=== PATIENT | female | born 1980 | race Caucasian/White ===

== ENCOUNTER → 2021-03-20 | Outpatient (CLI) | payer OTHER ==
--- NOTE | 2021-03-24 14:39 | MM ---
Reason for exam: screening (asymptomatic). Baseline mammogram. History: Family history of breast cancer in paternal grandmother. Took hormonal contraceptives beginning at age 20. Physical Findings: Nurse did not find any significant physical abnormalities on exam. MG Screening Mammo w CAD Bilateral CC and MLO view(s) were taken. The breast tissue is heterogeneously dense. This may lower the sensitivity of mammography. There is no discrete abnormality. Scar marker left breast. ASSESSMENT: Benign, BI-RAD 2 RECOMMENDATION: Routine screening mammogram of both breasts in 1 year.
== END | disposition home or self-care (01) ==
LOC: RADMAMWWP 09:47
PROVIDERS: ATTEND Family Medicine
DX: Z12.31 Encounter for screening mammogram for malignant neoplasm of breast (principal); Z80.3 Family history of malignant neoplasm of breast
CPT/HCPCS: 77067

== ENCOUNTER → 2022-09-03 | Outpatient (CLI) | payer BC ==
--- NOTE | 2022-09-03 15:23 | MM ---
Reason for Exam: Clinical finding. Last mammogram was performed 1 year(s) and 5 month(s) ago. Indicated Problems: Lump or thickening of the right side (size 20) for 1 Month(s). Patient History: Menarche at age 13. First Full-Term at age 15. Patient has history of breast feeding. Hormonal Contraceptives, from age 20 until age 25. Paternal grandmother had breast cancer, age 65. Last menstrual period: 08/18/2022 Risk Values: [place] 5 year model risk: 0.5%. NCI Lifetime model risk: 7.2%. Prior Study Comparison: 03/20/2021 Bilateral Screening Mammogram, [facility]. Tissue Density: The breast tissue is extremely dense which could obscure a lesion on mammography. Findings: Analyzed By CAD. There is an irregular triangular area in the 6:00 position subareolar right breast measuring an estimated 2.6 x 4.9 cm in size corresponding to the patient's pelvic abnormality and skin dimpling at this level. Note is made of skin thickening in the periareolar and lower inner quadrant. This is new from comparison. There is a 0.6 cm nodule located 8 cm on the nipple upper outer quadrant. There is a 0.7 cm nodule located 2 cm from the nipple in the upper portion of the right breast identified on mediolateral oblique view. These are changed from comparison. Left breast appears stable. Overall Assessment: Incomplete: need additional imaging evaluation, BI-RAD 0 Management: Diagnostic Breast Ultrasound of the right breast. A clinical breast exam by your physician is recommended on an annual basis and results should be correlated with mammographic findings. This exam should not preclude additional follow-up of suspicious palpable abnormalities. Results were given to the patient verbally at the time of exam. Electronically signed and approved by: Frankie Sanabria D.O. Radiologis
--- NOTE | 2022-09-03 16:16 | USB ---
Patient History: Menarche at age 13. First Full-Term at age 15. Patient has history of breast feeding. Hormonal Contraceptives, from age 20 until age 25. Paternal grandmother had breast cancer, age 65. Risk Values: [place] 5 year model risk: 0.5%. NCI Lifetime model risk: 7.2%. Technique: Method: Whole Breast Handheld. Prior Study Comparison: 03/20/2021 Bilateral Screening Mammogram, [facility]. Findings: The whole breast of the right breast, the axilla of the right breast and the retroareolar of the right breast were scanned. There is a lobular heterogenous area at the 6:00 position measuring 2.5 x 1.9 cm. Vascularity is present. Biopsy is recommended. At the 10:00 position 8 cm from nipple is a hypoechoic round area with smooth margins and posterior wall enhancement. Some vascularity may be within this structure. Axillary tail of scan. 12 cm from nipple there is an enlarged lymph node with thickened cortex and 0.6 cm. Overall Assessment: Highly suggestive of malignancy, BI-RAD 5 Management: Ultrasound Core Biopsy of the right breast. A clinical breast exam by your physician is recommended on an annual basis and results should be correlated with mammographic findings. This exam should not preclude additional follow-up of suspicious palpable abnormalities. Results were given to the patient verbally at the time of exam. Electronically signed and approved by: Frankie Sanabria D.O. Radiologis
== END | disposition home or self-care (01) ==
LOC: RADMAMWWP 14:20
PROVIDERS: ATTEND Family Medicine
DX: N63.13 Unspecified lump in the right breast, lower outer quadrant (principal); N64.4 Mastodynia; Z80.3 Family history of malignant neoplasm of breast
CPT/HCPCS: 77062; 77066

== ENCOUNTER → 2022-10-26 | Outpatient (CLI) | payer BC ==
--- NOTE | 2022-10-29 08:27 | BMR ---
EXAMINATION TYPE: MR breast BILAT wo/w con DATE OF EXAM: 10/26/2022 COMPARISON: 3-D diagnostic bilateral breast mammogram September 03, 2022 BI-RADS 0. Right breast ultras ound September 03, 2022 Iressa 5 HISTORY: Right breast cancer on ultrasound-guided biopsy September 18, 2022. 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 Metastatic lymphadenopathy 10:00 lesion and and right axillary lymph n ode on biopsy same day. Family history of breast cancer in grandmother. Last normal menstrual period October 15, 2022. TECHNIQUE: A series of fat and water weighted images in the long and short axis views of both breasts are obtained in conjunction with dynamic contrast MRI with subtraction technique. The patient was i njected with 12 mL intravenous Gadavist gadolinium contrast. Three-dimensional and additional postp rocessing imaging is created on independent workstation and reviewed during official interpretation o f this study. FINDINGS: Heterogeneously dense fibroglandular tissue is redemonstrated bilaterally. There is asymmet ben moderate right breast diffuse skin thickening and trabeculation. There is Mediport catheter in th e upper medial aspect of the left breast. There is no concerning left axillary adenopathy. There are several suspicious right axillary lymph nodes which correlates with patient's history. There is some asymmetric edema within the right pectoralis minor muscle. Dynamic postcontrast imaging shows moderat e left-sided background enhancement with tiny areas of nodular enhancement. There is more severe righ t-sided enhancement. Left breast shows chest wall wall to appear intact. No definitive focal greater than 5 mm enhancing m asses are seen. Right breast shows diffuse enhancement involving all 4 quadrants and abnormal skin thickening extendi ng to their close proximity to the pectoralis muscle which is slightly indented anteriorly axial imag e 102 series 801 for reference. No definitive chest wall or muscular invasion. IMPRESSION: Suboptimal study due to marked background enhancement. Diffuse neoplastic involvement thr oughout the entire right breast is suspected including MRI suspicion for probable dermal involvement due to enhancing asymmetric thickened right-sided dermal layer. Abnormal right axillary adenopathy. 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 No convincing MRI evidence for invasive malignancy in the left breast. BI-RADS 6 biopsy-proven cancer right breast. BI-RADS 2 benign findings left breast. Recommendation: Appropriate surgical and oncologic management of newly diagnosed right breast cancer.
== END | disposition home or self-care (01) ==
LOC: RADMRIMAIN 17:46
PROVIDERS: ATTEND Surgery
DX: C50.911 Malignant neoplasm of unspecified site of right female breast (principal); C77.3 Secondary and unspecified malignant neoplasm of axilla and upper limb lymph nodes
CPT/HCPCS: 77049; A9585

== ENCOUNTER 2023-02-18 08:42 | Inpatient (IN) | payer BC ==
[2023-02-18 08:52] LABS: Glucose,Whole Blood 146 mg/dL (70-110)
[2023-02-18] MEDS ORDERED: SODIUM CHLORIDE 0.9% 1,000 ML IV STA (08:58)
[2023-02-18] MEDS ORDERED: ACETAMINOPHEN TAB 325 MG TAB PO STA (09:01)
[2023-02-18] MEDS ORDERED: METOCLOPRAMIDE 5 MG/ML 2 ML VIAL IVP STA (09:01)
[2023-02-18] MEDS ORDERED: ACETAMINOPHEN TAB 500 MG TAB PO STA (09:02)
--- NOTE | 2023-02-18 09:09 | ED ---
General Adult HPI - General Chief complaint: Syncope Stated complaint: Near Syncope Time Seen by Provider: 02/18/23 08:44 Source: patient, EMS, RN notes reviewed Mode of arrival: ambulatory Limitations: no limitations - History of Present Illness Initial comments: Patient is a 42year old female presenting to the ER via EMS for evaluation of near syncope. Patient is currently being treated for breast cancer and her last infusion treatment was , 02/11/23. Patient states this morning while getting out of bed she was extremely dizzy and felt like she was going to pass out. She states it took several minutes for her to get her bearings and go to the bathroom where the same dizzy spell occurred again. She states she is extremely nauseous which is normal for her and is on many medications for it. Patient reports she was scheduled for IV fluids today. She denies headaches, visual changes, chest pain, shortness of breath, abdominal pain, or urinary symptoms. - Related Data Home Medications Medication Instructions Recorded Confirmed Ergocalciferol [Vitamin D2 (1250 1,250 mcg PO WE 10/15/22 02/18/23 Mcg = 63010 Iu)] Multivitamins, Thera [Multivitamin 1 tab PO DAILY 10/15/22 02/18/23 (formulary)] OLANZapine [ZyPREXA] 2.5 mg PO DIRECTED 02/18/23 02/18/23 Ondansetron Odt [Zofran Odt] 8 mg PO Q8HR PRN 02/18/23 02/18/23 Ondansetron [Zofran] 4 - 8 mg PO Q4H PRN 02/18/23 02/18/23 Prochlorperazine [Compazine] 10 mg PO Q6H PRN 02/18/23 02/18/23 Triamcinolone 0.1% Cream [Kenalog 1 applicatio TOPICAL TID PRN 02/18/23 02/18/23 0.1% Cream] Allergies Allergy/AdvReac Type Severity Reaction Status Date / Time No Known Allergies Allergy Verified 02/18/23 12:39 Review of Systems ROS Statement: Those systems with pertinent positive or pertinent negative responses have been documented in the HPI. ROS Other: All systems not noted in ROS Statement are negative. Past Medical History Past Medical History: Cancer Additional Past Medical History / Comment(s): new dx. breast cancer History of Any Multi-Drug Resistant Organisms: None Reported Past Surgical History: Breast Surgery, Tonsillectomy Additional Past Surgical History / Comment(s): recent breast bx. Past Anesthesia/Blood Transfusion Reactions: No Reported Reaction Past Psychological History: No Psychological Hx Reported Smoking Status: Never smoker - Past Family History Father Family Medical History: Cancer Additional Family Medical History / Comment(s): brain, paternal grandmother breast cancer General Exam Limitations: no limitations General appearance: alert, in no apparent distress Respiratory exam: Present: normal lung sounds bilaterally. Absent: respiratory distress, wheezes, rales, rhonchi, stridor Cardiovascular Exam: Present: regular rate, normal rhythm, normal heart sounds. Absent: systolic murmur, diastolic murmur, rubs, gallop, clicks GI/Abdominal exam: Present: soft, normal bowel sounds. Absent: distended, tenderness, guarding, rebound, rigid Neurological exam: Present: alert, oriented X3 Psychiatric exam: Present: normal affect, normal mood Skin exam: Present: warm, dry, intact, normal color. Absent: rash Course Vital Signs 02/18/23 02/18/23 02/18/23 08:52 10:11 11:45 Temperature 102.9 F H 99.8 F H 98.2 F Pulse Rate 111 H 107 H 98 Respiratory 19 18 17 Rate Blood Pressure 97/63 98/65 95/62 O2 Sat by Pulse 100 95 96 Oximetry 02/18/23 13:41 Temperature 98.4 F Pulse Rate Respiratory Rate Blood Pressure O2 Sat by Pulse Oximetry EKG Findings - EKG Comments: EKG Findings:: EKG performed at 20:49 sinus tachycardia rate of 108 MO 128 QRS 89 QT/QTC 337/400 - EKG Results: EKG: interpreted by ERMD Medical Decision Making - Medical Decision Making Was pt. sent in by a medical professional or institution (, PA, COMPUTER SYSTEMS AUDITOR, urgent care, hospital, or care home...) When possible be specific @ -No Did you speak to anyone other than the patient for history (EMS, parent, family, police, friend...)? What history was obtained from this source @ -No Did you review nursing and triage notes (agree or disagree)? Why? @ -I reviewed and agree with nursing and triage notes Were old charts reviewed (outside hosp., previous admission, EMS record, old EKG, old radiological studies, urgent care reports/EKG's, care home records)? Report findings @ -No old charts were reviewed Differential Diagnosis (chest pain, altered mental status, abdominal pain women, abdominal pain men, vaginal bleeding, weakness, fever, dyspnea, syncope, headache, dizziness, GI bleed, back pain, seizure, CVA, palpatations, mental health, musculoskeletal)? @ -Differential Weakness: Hypoglycemia, shock, sepsis, hyponatremia, anemia, infection, SC, ETOH, adverse medicine reaction, overdose, stroke, this is not meant to be an all-inclusive list.able EKG interpreted by me (3pts min.). @ -As above X-rays interpreted by me (1pt min.). @ -Chest x-ray shows no acute cardiopulmonary process CT interpreted by me (1pt min.). @ -None done U/S interpreted by me (1pt. min.). @ -None done What testing was considered but not performed or refused? (CT, X-rays, U/S, labs)? Why? @ -None What meds were considered but not given or refused? Why? @ -None Did you discuss the management of the patient with other professionals (lenny joshi i.e. , PA, COMPUTER SYSTEMS AUDITOR, lab, RT, psych nurse, social service liaison, linen keeper, teacher, tactical/mobile watch officer, case manager specialist)? Give summary @ -I discussed the case with oncology recommended patient to be admitted for neutropenic fever given patient's recent fusion even though patient has Covid 19 positive. Patient started him [place] from antibiotics. Discuss case with Dr. Back for [facility] for admission Was smoking cessation discussed for >3mins.? @ -No Was critical care preformed (if so, how long)? @ -No Were there social determinants of health that impacted care today? How? (Homelessness, low income, unemployed, alcoholism, drug addiction, transportation, low edu. Level, literacy, decrease access to med. care, detention, rehab)? @ -No Was there de-escalation of care discussed even if they declined (Discuss DNR or withdrawal of care, Hospice)? DNR status @ -No What co-morbidities impacted this encounter? (DM, HTN, Smoking, COPD, CAD, Cancer, CVA, ARF, Chemo, Hep., AIDS, mental health diagnosis, sleep apnea, morbid obesity)? @ -None Was patient admitted / discharged? Hospital course, mention meds given and route, prescriptions, significant lab abnormalities, going to OR and other pertinent info. @ -[Admitted patient admitted for neutropenic fever patient recommended antibiotics today but cultures, admission team recommended consult to oncology and pulmonary. Undiagnosed new problem with uncertain prognosis? @ -yes Drug Therapy requiring intensive monitoring for toxicity (Heparin, Nitro, Insul in, Cardizem)? @ -No Were any procedures done? @ -No Diagnosis/symptom? @ -Neutropenic fever, Covid Acute, or Chronic, or Acute on Chronic? @ -Acute Uncomplicated (without systemic symptoms) or Complicated (systemic symptoms)? @ -complicated Side effects of treatment? @ -No Exacerbation, Progression, or Severe Exacerbation? @ -No Poses a threat to life or bodily function? How? (Chest pain, USA, SC, pneumonia, PE, COPD, DKA, ARF, appy, cholecystitis, CVA, Diverticulitis, Homicidal, Suicidal, threat to staff... and all critical care pts) @ -Yes patient has neutropenic fever concerning for possible sepsis and an organ failure. - Lab Data Result diagrams: 02/18/23 09:11 02/18/23 09:11 Lab Results 02/18/23 02/18/23 02/18/23 Range/Units 08:51 09:11 09:11 WBC 0.6 L* (3.8-10.6) k/uL RBC 2.84 L (3.80-5.40) m/uL Hgb 9.0 L (11.4-16.0) gm/dL Hct 26.9 L (34.0-46.0) % MCV 94.7 (80.0-100.0) fL MCH 31.7 (25.0-35.0) pg MCHC 33.5 (31.0-37.0) g/dL RDW 15.2 (11.5-15.5) % Plt Count 94 L (150-450) k/uL MPV 9.3 Differential Comment Manual Slide Review Performed RBC Morphology Normal Sodium 136 L (137-145) mmol/L Potassium 3.8 (3.5-5.1) mmol/L Chloride 103 (98-107) mmol/L Carbon Dioxide 24 (22-30) mmol/L Anion Gap 9 mmol/L BUN 14 (7-17) mg/dL Creatinine 0.90 (0.52-1.04) mg/dL Est GFR (CKD-EPI)AfAm >90 (>60 ml/min/1.73 sqM) Est GFR (CKD-EPI)NonAf 80 (>60 ml/min/1.73 sqM) Glucose 110 H (74-99) mg/dL POC Glucose (mg/dL) 146 H (70-110) mg/dL POC Glu Engineering Secretary ID Tena Richard Plasma Lactic Acid Varun (0.7-2.0) mmol/L Calcium 8.3 L (8.4-10.2) mg/dL Magnesium 1.8 (1.6-2.3) mg/dL Total Bilirubin 1.6 H (0.2-1.3) mg/dL AST 34 (14-36) U/L ALT 29 (4-34) U/L Alkaline Phosphatase 76 (38-126) U/L Troponin I (0.000-0.034) ng/mL Total Protein 6.5 (6.3-8.2) g/dL Albumin 3.8 (3.5-5.0) g/dL Urine Color Urine Appearance (Clear) Urine pH (5.0-8.0) Ur Specific [place] (1.001-1.035) Urine Protein (Negative) Urine Glucose (UA) (Negative) Urine Ketones (Negative) Urine Blood (Negative) Urine Nitrite (Negative) Urine Bilirubin (Negative) Urine Urobilinogen (<2.0) mg/dL Ur Leukocyte Esterase (Negative) Urine RBC (0-5) /hpf Urine WBC (0-5) /hpf Ur Squamous Epith Cells (0-4) /hpf Amorphous Sediment (None) /hpf Urine Bacteria (None) /hpf Urine Mucus (None) /hpf Influenza Type A (PCR) (Not Detectd) Influenza Type B (PCR) (Not Detectd) RSV (PCR) (Not Detectd) SARS-CoV-2 (PCR) (Not Detectd) 02/18/23 02/18/23 02/18/23 Range/Units 09:11 09:11 09:11 WBC (3.8-10.6) k/uL RBC (3.80-5.40) m/uL Hgb (11.4-16.0) gm/dL Hct (34.0-46.0) % MCV (80.0-100.0) fL MCH (25.0-35.0) pg MCHC (31.0-37.0) g/dL RDW (11.5-15.5) % Plt Count (150-450) k/uL MPV Differential Comment Manual Slide Review RBC Morphology Sodium (137-145) mmol/L Potassium (3.5-5.1) mmol/L Chloride (98-107) mmol/L Carbon Dioxide (22-30) mmol/L Anion Gap mmol/L BUN (7-17) mg/dL Creatinine (0.52-1.04) mg/dL Est GFR (CKD-EPI)AfAm (>60 ml/min/1.73 sqM) Est GFR (CKD-EPI)NonAf (>60 ml/min/1.73 sqM) Glucose (74-99) mg/dL POC Glucose (mg/dL) (70-110) mg/dL POC Glu Engineering Secretary ID Plasma Lactic Acid Varun 1.4 (0.7-2.0) mmol/L Calcium (8.4-10.2) mg/dL Magnesium (1.6-2.3) mg/dL Total Bilirubin (0.2-1.3) mg/dL AST (14-36) U/L ALT (4-34) U/L Alkaline Phosphatase (38-126) U/L Troponin I 0.016 (0.000-0.034) ng/mL Total Protein (6.3-8.2) g/dL Albumin (3.5-5.0) g/dL Urine Color Dark Yellow Urine Appearance Cloudy H (Clear) Urine pH 6.0 (5.0-8.0) Ur Specific [place] 1.022 (1.001-1.035) Urine Protein Trace H (Negative) Urine Glucose (UA) Negative (Negative) Urine Ketones Negative (Negative) Urine Blood Negative (Negative) Urine Nitrite Negative (Negative) Urine Bilirubin Negative (Negative) Urine Urobilinogen 4.0 (<2.0) mg/dL Ur Leukocyte Esterase Negative (Negative) Urine RBC 1 (0-5) /hpf Urine WBC 5 (0-5) /hpf Ur Squamous Epith Cells 5 H (0-4) /hpf Amorphous Sediment Rare H (None) /hpf Urine Bacteria Rare H (None) /hpf Urine Mucus Many H (None) /hpf Influenza Type A (PCR) (Not Detectd) Influenza Type B (PCR) (Not Detectd) RSV (PCR) (Not Detectd) SARS-CoV-2 (PCR) (Not Detectd) 02/18/23 Range/Units 09:11 WBC (3.8-10.6) k/uL RBC (3.80-5.40) m/uL Hgb (11.4-16.0) gm/dL Hct (34.0-46.0) % MCV (80.0-100.0) fL MCH (25.0-35.0) pg MCHC (31.0-37.0) g/dL RDW (11.5-15.5) % Plt Count (150-450) k/uL MPV Differential Comment Manual Slide Review RBC Morphology Sodium (137-145) mmol/L Potassium (3.5-5.1) mmol/L Chloride (98-107) mmol/L Carbon Dioxide (22-30) mmol/L Anion Gap mmol/L BUN (7-17) mg/dL Creatinine (0.52-1.04) mg/dL Est GFR (CKD-EPI)AfAm (>60 ml/min/1.73 sqM) Est GFR (CKD-EPI)NonAf (>60 ml/min/1.73 sqM) Glucose (74-99) mg/dL POC Glucose (mg/dL) (70-110) mg/dL POC Glu Engineering Secretary ID Plasma Lactic Acid Varun (0.7-2.0) mmol/L Calcium (8.4-10.2) mg/dL Magnesium (1.6-2.3) mg/dL Total Bilirubin (0.2-1.3) mg/dL AST (14-36) U/L ALT (4-34) U/L Alkaline Phosphatase (38-126) U/L Troponin I (0.000-0.034) ng/mL Total Protein (6.3-8.2) g/dL Albumin (3.5-5.0) g/dL Urine Color Urine Appearance (Clear) Urine pH (5.0-8.0) Ur Specific [place] (1.001-1.035) Urine Protein (Negative) Urine Glucose (UA) (Negative) Urine Ketones (Negative) Urine Blood (Negative) Urine Nitrite (Negative) Urine Bilirubin (Negative) Urine Urobilinogen (<2.0) mg/dL Ur Leukocyte Esterase (Negative) Urine RBC (0-5) /hpf Urine WBC (0-5) /hpf Ur Squamous Epith Cells (0-4) /hpf Amorphous Sediment (None) /hpf Urine Bacteria (None) /hpf Urine Mucus (None) /hpf Influenza Type A (PCR) Not Detected (Not Detectd) Influenza Type B (PCR) Not Detected (Not Detectd) RSV (PCR) Not Detected (Not Detectd) SARS-CoV-2 (PCR) Detected A (Not Detectd) Disposition Clinical Impression: Neutropenic fever, COVID-19 Disposition: ADMITTED IP TO THIS [facility] Condition: Poor Referrals: Yonas Dalal III, MD [Primary Care Provider] - 1-2 days Time of Disposition: 14:29
--- NOTE | 2023-02-18 09:42 | XR ---
EXAMINATION TYPE: XR chest 2V DATE OF EXAM: 02/18/2023 9:37 AM COMPARISON: Chest radiographs from 10/20/2022 TECHNIQUE: XR chest 2V Frontal and lateral views of the chest. CLINICAL INDICATION:Female, 42 years old with history of syncope; FINDINGS: Lungs/Pleura: There is no evidence of pleural effusion, focal consolidation, or pneumothorax. Pulmonary vascularity: Unremarkable. Heart/mediastinum: Cardiomediastinal silhouette is unremarkable. Musculoskeletal: No acute osseous pathology. Other findings: None Lines/Tubes: [id number] projecting over the left hemithorax with distal tip at the low SVC. IMPRESSION: No acute cardiopulmonary disease/process.
[2023-02-18 09:45] LABS: HCT 26.9 % (34.0-46.0); MCH 31.7 pg (25.0-35.0); MCHC 33.5 g/dL (31.0-37.0); MCV 94.7 fL (80.0-100.0); Mean Platelet Volume 9.3; RBC 2.84 m/uL (3.80-5.40); RDW 15.2 % (11.5-15.5)
[2023-02-18 09:49] LABS: WBC 0.6 k/uL (3.8-10.6)
[2023-02-18 09:55] LABS: ALT 29 U/L (4-34); AST 34 U/L (14-36); African American GFR (CKD) >90 (>60 ml/min/1.73 sqM); Albumin 3.8 g/dL (3.5-5.0); Alkaline Phosphatase 76 U/L (38-126); Anion Gap 9 mmol/L; Blood Urea Nitrogen 14 mg/dL (7-17); Calcium 8.3 mg/dL (8.4-10.2); Carbon Dioxide 24 mmol/L (22-30); Chloride 103 mmol/L (98-107); Glucose 110 mg/dL (74-99); Magnesium 1.8 mg/dL (1.6-2.3); Non-African American GFR(CKD) 80 (>60 ml/min/1.73 sqM); Potassium 3.8 mmol/L (3.5-5.1); Sodium 136 mmol/L (137-145); Total Bilirubin 1.6 mg/dL (0.2-1.3); Total Protein 6.5 g/dL (6.3-8.2)
[2023-02-18 10:11] LABS: Platelet Count 94 k/uL (150-450)
[2023-02-18 10:12] LABS: RBC Morphology Normal
[2023-02-18 11:17] LABS: Amorphous Sediment,Urine Rare /hpf; Appearance,Urine Cloudy (Clear); Bacteria,Urine Rare /hpf; Bilirubin,Urine Negative (Negative); Blood,Urine Negative (Negative); Color,Urine Dark Yellow; Glucose,Urine (UA) Negative (Negative); Ketones,Urine Negative (Negative); Leukocyte Esterase,Urine Negative (Negative); Mucus,Urine Many /hpf; Nitrite,Urine Negative (Negative); Protein,Urine Trace (Negative); RBC,Urine 1 /hpf (0-5); Specific Gravity,Urine 1.022 (1.001-1.035); Squamous Epithelial Cell,Urine 5 /hpf (0-4); WBC,Urine 5 /hpf (0-5)
[2023-02-18] MEDS ORDERED: PROCHLORPERAZINE INJ 10 MG/2 ML VIAL IVP STA (13:46)
[2023-02-18] MEDS ORDERED: VANCOMYCIN IV PER PHARMACY 1 EACH MISC MISCELLANE PRN (14:26)
[2023-02-18] MEDS ORDERED: VANCOMYCIN 2,000 MG in SODIUM CHLORIDE 0.9% 500 ML 500 ML IVPB STA (14:30)
[2023-02-18] MEDS ORDERED: IBUPROFEN 400 MG TAB PO PRN (15:55)
[2023-02-18] MEDS ORDERED: ACETAMINOPHEN TAB 325 MG TAB PO PRN (15:55)
[2023-02-18] MEDS ORDERED: NALOXONE 0.4 MG/ML 1 ML VIAL IV PRN (15:55)
[2023-02-18] MEDS: SODIUM CHLORIDE 0.9% 1,000 ML IV SCH (16:21)
[2023-02-18] MEDS: CEFEPIME 2 GM in SODIUM CHLORIDE 0.9% 100 ML IVPB SCH ×2 (16:22→23:51)
[2023-02-18] MEDS ORDERED: PROCHLORPERAZINE 10 MG TAB PO PRN (20:28)
[2023-02-18] MEDS ORDERED: ONDANSETRON ODT 8 MG TAB.RAPDIS PO PRN (20:28)
[2023-02-18] MEDS ORDERED: OLANZapine 2.5 MG TAB PO SCH (20:30)
[2023-02-18] MEDS: VANCOMYCIN 2,000 MG in SODIUM CHLORIDE 0.9% 500 ML 500 ML IVPB SCH (23:51)
[2023-02-19] MEDS: SODIUM CHLORIDE 0.9% 1,000 ML IV SCH ×2 (06:38→16:35)
[2023-02-19] MEDS: CEFEPIME 2 GM in SODIUM CHLORIDE 0.9% 100 ML IVPB SCH ×2 (08:16→17:57)
[2023-02-19] MEDS: MULTIVITAMINS, THERA 1 EACH TAB PO SCH (08:49)
[2023-02-19] MEDS ORDERED: ONDANSETRON 4 MG/2 ML VIAL IVP PRN (08:56)
[2023-02-19 10:44] LABS: HCT 24.2 % (34.0-46.0); MCHC 33.1 g/dL (31.0-37.0); MCV 96.8 fL (80.0-100.0); Mean Platelet Volume 9.7; RDW 15.1 % (11.5-15.5)
[2023-02-19 10:57] LABS: Platelet Count 62 k/uL (150-450); WBC 0.4 k/uL (3.8-10.6)
[2023-02-19] MEDS: VANCOMYCIN 2,000 MG in SODIUM CHLORIDE 0.9% 500 ML 500 ML IVPB SCH (13:14)
[2023-02-19 13:18] LABS: RBC Morphology Normal
[2023-02-19] MEDS ORDERED: LOPERAMIDE 2 MG CAP PO STA (14:26)
[2023-02-19] MEDS ORDERED: LOPERAMIDE 2 MG CAP PO PRN (14:26)
--- NOTE | 2023-02-19 14:54 | P.CNPUL ---
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 Lifelong nonsmoker. No other significant medical history. She presented here to the emergency room yesterday after developing nausea, vomiting, diarrhea with dizziness and lightheadedness and near syncopal episodes. White count 0.4. Hemoglobin 8.0. Platelets 62,000. Sodium 136. Potassium 3.8. Bicarb 24. BUN 14. Creatinine 0.91. Glucose 110. AST 34. At all. 29. Troponin negative 1. C. difficile screen negative. Influenza screen negative. RSV screen negative. She was found to be positive for COVID-19. Chest x-ray reveals no acute cardiopulmonary process. Mediport noted in the left hemithorax. Receiving normal saline at 130 ML's per hour. Compazine and Zofran for nausea. Antibiotics of vancomycin and cefepime. Review of Systems REVIEW OF SYSTEMS: CONSTITUTIONAL: Positive for dizziness lightheadedness, weight loss. EYES: Denies change in vision. EARS, NOSE, MOUTH, THROAT: Denies headaches, denies sore throat. CARDIOVASCULAR: Denies chest pain, palpitations or syncopal episodes. RESPIRATORY: Denies shortness of breath, cough, congestion or hemoptysis. GASTROINTESTINAL: Positive for nausea, vomiting, diarrhea. GENITOURINARY: Denies hematuria, denies infections. MUSKULOSKELETAL: Denies pain, denies swelling. INTEGUMENTARY: Denies rash, denies eczema. NEUROLOGICAL: Denies recent memory loss, no recent seizure activity. PSYCHIATRIC: Denies anxiety, denies depression. HEMATOLOGIC/LYMPHATIC: Positive for anemia, denies enlarged lymph nodes. Past Medical History Past Medical History: Cancer Additional Past Medical History / Comment(s): new dx. breast cancer History of Any Multi-Drug Resistant Organisms: None Reported Past Surgical History: Breast Surgery, Tonsillectomy Additional Past Surgical History / Comment(s): recent breast bx. Past Anesthesia/Blood Transfusion Reactions: No Reported Reaction Past Psychological History: No Psychological Hx Reported Smoking Status: Never smoker Past Alcohol Use History: Occasional Past Drug Use History: None Reported - Past Family History Father Family Medical History: Cancer Additional Family Medical History / Comment(s): brain, paternal grandmother breast cancer Medications and Allergies Home Medications Medication Instructions Recorded Confirmed Type Ergocalciferol [Vitamin D2 (1250 1,250 mcg PO WE 10/15/22 02/18/23 History Mcg = 68417 Iu)] Multivitamins, Thera [Multivitamin 1 tab PO DAILY 10/15/22 02/18/23 History (formulary)] OLANZapine [ZyPREXA] 2.5 mg PO DIRECTED 02/18/23 02/18/23 History Ondansetron Odt [Zofran Odt] 8 mg PO Q8HR PRN 02/18/23 02/18/23 History Ondansetron [Zofran] 4 - 8 mg PO Q4H PRN 02/18/23 02/18/23 History Prochlorperazine [Compazine] 10 mg PO Q6H PRN 02/18/23 02/18/23 History Triamcinolone 0.1% Cream [Kenalog 1 applicatio TOPICAL TID PRN 02/18/23 02/18/23 History 0.1% Cream] Allergies Allergy/AdvReac Type Severity Reaction Status Date / Time No Known Allergies Allergy Verified 02/18/23 12:39 Physical Exam Vitals: Vital Signs Temp Pulse Pulse Resp BP BP Pulse Ox 02/19/23 08:02 98.9 F 110 H 18 96/62 99 02/19/23 02:00 100.0 F H 86 16 95/61 99 02/18/23 19:57 102.0 F H 101 H 18 92/61 99 02/18/23 17:51 98.5 F 100 18 109/70 98 02/18/23 16:48 93 18 Intake and Output 02/18/23 02/19/23 02/19/23 22:59 06:59 14:59 Other: Voiding Method Toilet # Voids 1 2 Weight 122.47 kg GENERAL EXAM: Alert, very pleasant 42-year-old female, on room air, fairly comfortable in no apparent distress. HEAD: Normocephalic. EYES: Normal reaction of pupils, equal size. NOSE: Clear with pink turbinates. THROAT: No erythema or exudates. NECK: No masses, no JVD. CHEST: No chest wall deformity. Left Mediport noted in place LUNGS: Equal air entry with no crackles, wheeze, rhonchi or dullness. CVS: S1 and S2 normal with no audible murmur, regular rhythm. ABDOMEN: No hepatosplenomegaly, normal bowel sounds, no guarding or rigidity. SPINE: No scoliosis or deformity SKIN: No rashes CENTRAL NERVOUS SYSTEM: No focal deficits, tone is normal in all 4 extremities. EXTREMITIES: There is no peripheral edema. No clubbing, no cyanosis. Peripheral pulses are intact. Results - Laboratory Findings CBC and BMP: 02/19/23 10:27 02/18/23 09:11 Abnormal lab findings: Abnormal Labs 02/18/23 02/18/23 02/18/23 08:51 09:11 09:11 WBC 0.6 L* RBC 2.84 L Hgb 9.0 L Hct 26.9 L Plt Count 94 L Sodium 136 L Glucose 110 H POC Glucose (mg/dL) 146 H Calcium 8.3 L Total Bilirubin 1.6 H Urine Appearance Urine Protein Ur Squamous Epith Cells Amorphous Sediment Urine Bacteria Urine Mucus SARS-CoV-2 (PCR) 02/18/23 02/18/23 02/19/23 09:11 09:11 10:27 WBC 0.4 L* RBC 2.50 L Hgb 8.0 L Hct 24.2 L Plt Count 62 L Sodium Glucose POC Glucose (mg/dL) Calcium Total Bilirubin Urine Appearance Cloudy H Urine Protein Trace H Ur Squamous Epith Cells 5 H Amorphous Sediment Rare H Urine Bacteria Rare H Urine Mucus Many H SARS-CoV-2 (PCR) Detected A - Diagnostic Findings Chest x-ray: image reviewed Assessment and Plan Assessment: Near syncope secondary to nausea, vomiting, diarrhea. C. diff is currently single screen negative. COVID-19 screen positive COVID-19 infection without COVID-19 pneumonia History of invasive poorly differentiated ductal carcinoma of the right breast. Most recent chemotherapy on 02/11/2023 Pancytopenia secondary to above Nonsmoker Plan: The patient was seen and evaluated Chest x-ray, labs and medications reviewed No evidence of COVID-19 pneumonia Stable and on room air Continue fluid resuscitation Obtain a pro-calcitonin Antibiotics in the form of vancomycin and cefepime Continue Compazine and Zofran as needed Continue Imodium as needed We will continue to follow and make further recommendations based on her clinical status I have personally seen and examined the patient, performed the documentation and the assessment and plan as written. Number of minutes spent on the visit: 20.
[2023-02-19] MEDS: PROCHLORPERAZINE INJ 10 MG/2 ML VIAL IVP PRN (15:49)
[2023-02-19] MEDS ORDERED: ACETAMINOPHEN IV (For NPO) 1,000 MG in EMPTY BAG 1 BAG IVPB PRN (16:32)
--- NOTE | 2023-02-19 16:59 | P.CONS ---
History of Present Illness - Reason for Consult Consult date: 02/19/23 hx breast cancer Requesting physician: Sebastián Galdamez - Chief Complaint weakness - History of Present Illness Patient is a 42-year-old woman with a significant history of triple negative invasive ductal carcinoma of the right breast. PET/CT noted FDG avidity in the right breast along with the right axilla and right retropectoral region with no evidence of distant metastatic disease. She completed 4 cycles of neoadjuvant carboplatin/paclitaxel/pembrolizumab, and has completed cycle 2 of AC plus Keytruda with neulasta on 02/11/2023. With plans to f/u with surgery upon completion of cycle 4. Patient presented to the ER for progressing weakness and near syncope. Patient states since her last cycle on 02/11 symptoms have been progressing and became so weak she was barely able to walk from room to room or brush her teeth without having to lay down at which time she presented to the ER for further evaluation. Patient reports persisting diarrhea and nausea and decreased appetite. She denies syncope and chest pain. Denies cough and rhinorrhea. Chest x-ray was n egative for acute cardiopulmonary processes. C. difficile negative. Blood cultures pending. Patient has been started on cefepime and vancomycin. Patient did test positive for COVID infection. T max 102.9. Leukopenia present, WBC 400. Hemoglobin 8.0, platelets 62,000. Review of Systems 10 point ROS is negative except as stated in the HPI Past Medical History Past Medical History: Cancer Additional Past Medical History / Comment(s): new dx. breast cancer History of Any Multi-Drug Resistant Organisms: None Reported Past Surgical History: Breast Surgery, Tonsillectomy Additional Past Surgical History / Comment(s): recent breast bx. Past Anesthesia/Blood Transfusion Reactions: No Reported Reaction Past Psychological History: No Psychological Hx Reported Smoking Status: Never smoker Past Alcohol Use History: Occasional Past Drug Use History: None Reported - Past Family History Father Family Medical History: Cancer Additional Family Medical History / Comment(s): brain, paternal grandmother breast cancer Medications and Allergies Home Medications Medication Instructions Recorded Confirmed Type Ergocalciferol [Vitamin D2 (1250 1,250 mcg PO WE 10/15/22 02/18/23 History Mcg = 92292 Iu)] Multivitamins, Thera [Multivitamin 1 tab PO DAILY 10/15/22 02/18/23 History (formulary)] OLANZapine [ZyPREXA] 2.5 mg PO DIRECTED 02/18/23 02/18/23 History Ondansetron Odt [Zofran Odt] 8 mg PO Q8HR PRN 02/18/23 02/18/23 History Ondansetron [Zofran] 4 - 8 mg PO Q4H PRN 02/18/23 02/18/23 History Prochlorperazine [Compazine] 10 mg PO Q6H PRN 02/18/23 02/18/23 History Triamcinolone 0.1% Cream [Kenalog 1 applicatio TOPICAL TID PRN 02/18/23 02/18/23 History 0.1% Cream] Allergies Allergy/AdvReac Type Severity Reaction Status Date / Time No Known Allergies Allergy Verified 02/18/23 12:39 Physical Exam Vitals: Vital Signs Temp Pulse Pulse Resp BP BP Pulse Ox 02/19/23 08:02 98.9 F 110 H 18 96/62 99 02/19/23 02:00 100.0 F H 86 16 95/61 99 02/18/23 19:57 102.0 F H 101 H 18 92/61 99 02/18/23 17:51 98.5 F 100 18 109/70 98 02/18/23 16:48 93 18 02/18/23 13:41 98.4 F 02/18/23 11:45 98.2 F 98 17 95/62 96 02/18/23 10:11 99.8 F H 107 H 18 98/65 95 Intake and Output 02/18/23 02/19/23 02/19/23 22:59 06:59 14:59 Other: Voiding Method Toilet # Voids 1 2 Weight 122.47 kg - Constitutional General appearance: average body habitus, no acute distress - EENT Eyes: anicteric sclerae, EOMI ENT: hearing grossly normal - Respiratory Respiratory: bilateral: CTA - Cardiovascular Rhythm: regular Heart sounds: normal: S1, S2 Abnormal Heart Sounds: no systolic murmur, no diastolic murmur, no rub, no S3 Gallop, no S4 Gallop, no click, no other - Gastrointestinal General gastrointestinal: soft, no tenderness - Integumentary Integumentary: no cyanotic, no rash - Neurologic Neurologic: CNII-XII intact - Musculoskeletal Musculoskeletal: generalized weakness - Psychiatric Psychiatric: A&O x's 3, appropriate affect, intact judgment & insight Results CBC & Chem 7: 02/19/23 10:27 02/18/23 09:11 Labs: Abnormal Lab Results - Last 24 Hours (Table) 02/18/23 02/18/23 02/18/23 Range/Units 09:11 09:11 09:11 WBC 0.6 L* (3.8-10.6) k/uL RBC 2.84 L (3.80-5.40) m/uL Hgb 9.0 L (11.4-16.0) gm/dL Hct 26.9 L (34.0-46.0) % Plt Count 94 L (150-450) k/uL Sodium 136 L (137-145) mmol/L Glucose 110 H (74-99) mg/dL Calcium 8.3 L (8.4-10.2) mg/dL Total Bilirubin 1.6 H (0.2-1.3) mg/dL Urine Appearance Cloudy H (Clear) Urine Protein Trace H (Negative) Ur Squamous Epith Cells 5 H (0-4) /hpf Amorphous Sediment Rare H (None) /hpf Urine Bacteria Rare H (None) /hpf Urine Mucus Many H (None) /hpf SARS-CoV-2 (PCR) (Not Detectd) 02/18/23 Range/Units 09:11 WBC (3.8-10.6) k/uL RBC (3.80-5.40) m/uL Hgb (11.4-16.0) gm/dL Hct (34.0-46.0) % Plt Count (150-450) k/uL Sodium (137-145) mmol/L Glucose (74-99) mg/dL Calcium (8.4-10.2) mg/dL Total Bilirubin (0.2-1.3) mg/dL Urine Appearance (Clear) Urine Protein (Negative) Ur Squamous Epith Cells (0-4) /hpf Amorphous Sediment (None) /hpf Urine Bacteria (None) /hpf Urine Mucus (None) /hpf SARS-CoV-2 (PCR) Detected A (Not Detectd) Chest x-ray: report reviewed Assessment and Plan (1) Neutropenic fever Current Visit: Yes Status: Acute Priority: High Code(s): D70.9 - NEUTROPENIA, UNSPECIFIED; R50.81 - FEVER PRESENTING WITH CONDITIONS CLASSIFIED ELSEWHERE SNOMED Code(s): 717022775 (2) Breast cancer, right breast Current Visit: Yes Status: Acute Priority: High Code(s): C50.911 - MALIGNANT NEOPLASM OF UNSP SITE OF RIGHT FEMALE BREAST SNOMED Code(s): 465502604 (3) Antineoplastic chemotherapy induced pancytopenia Current Visit: Yes Status: Acute Priority: High Code(s): D61.810 - ANTINEOPLASTIC CHEMOTHERAPY INDUCED PANCYTOPENIA; T45.1X5A - ADVERSE EFFECT OF ANTINEOPLASTIC AND IMMUNOSUP DRUGS, INIT SNOMED Code(s): 078826343122998 Plan: Breast cancer: -History of triple negative invasive ductal carcinoma of the right breast. PET/CT noted FDG avidity in the right breast along with the right axilla and right retropectoral region with no evidence of distant metastatic disease. She completed 4 cycles of neoadjuvant carboplatin/paclitaxel/pembrolizumab, and has completed 2/4 cycles of AC plus Keytruda with neulasta on 02/11/2023. With plans to f/u with surgery upon completion of cycle 4. Neutropenic fever/Chemo-induced pancytopenia: -T max 102.9, fever persisting. Patient is COVID positive. C. difficile negative. Blood cultures pending. Chest x-ray was negative for acute cardiopulmonary processes. Patient has been started on cefepime and vancomycin. -WBC 400, Hemoglobin 8.0, platelets 62,000. Neulasta given 8 days ago, should expect increase in WBCs over the next 1-2 days. Please transfuse for hemoglobin less than 7 -Will continue to monitor counts N/V/D: -Continue fluid hydration and antidiarrheals and antiemetics as needed for symptom management
--- NOTE | 2023-02-19 18:40 | P.CONS ---
History of Present Illness - Reason for Consult Consult date: 02/19/23 - History of Present Illness Patient is a 42-year-old female with a past medical history significant for poorly differentiated ductal carcinoma breast diagnosed in September 2022 last chemo was on 02/11/2023 through the Mediport patient presenting to the ER yesterday for evaluation of nausea vomiting and diarrhea a long with dizziness and had lightheadedness and near syncopal episode for the patient was evaluated on arrival to the ER patient was noticed to be febrile with a temperature of 102.9 F patient was tachycardic however the patient was not hypoxic or need for supplemental oxygen patient was noticed to have a white count of 0.6 creatinine was normal liver enzymes are normal urine was negative patient did tested positive for COVID influenza RSV was negative patient did have a chest x-ray that was negative for acute cardiopulmonary process patient did have a history of COVID-19 infection in 2020 and subsequently did receive vaccination for COVID-19 in 2021 and currently do not have a significant respiratory symptom of shortness of breath and cough Past Medical History Past Medical History: Cancer Additional Past Medical History / Comment(s): new dx. breast cancer History of Any Multi-Drug Resistant Organisms: None Reported Past Surgical History: Breast Surgery, Tonsillectomy Additional Past Surgical History / Comment(s): recent breast bx. Past Anesthesia/Blood Transfusion Reactions: No Reported Reaction Past Psychological History: No Psychological Hx Reported Smoking Status: Never smoker Past Alcohol Use History: Occasional Past Drug Use History: None Reported - Past Family History Father Family Medical History: Cancer Additional Family Medical History / Comment(s): brain, paternal grandmother breast cancer Medications and Allergies Home Medications Medication Instructions Recorded Confirmed Type Ergocalciferol [Vitamin D2 (1250 1,250 mcg PO WE 10/15/22 02/18/23 History Mcg = 99242 Iu)] Multivitamins, Thera [Multivitamin 1 tab PO DAILY 10/15/22 02/18/23 History (formulary)] OLANZapine [ZyPREXA] 2.5 mg PO DIRECTED 02/18/23 02/18/23 History Ondansetron Odt [Zofran Odt] 8 mg PO Q8HR PRN 02/18/23 02/18/23 History Ondansetron [Zofran] 4 - 8 mg PO Q4H PRN 02/18/23 02/18/23 History Prochlorperazine [Compazine] 10 mg PO Q6H PRN 02/18/23 02/18/23 History Triamcinolone 0.1% Cream [Kenalog 1 applicatio TOPICAL TID PRN 02/18/23 02/18/23 History 0.1% Cream] Allergies Allergy/AdvReac Type Severity Reaction Status Date / Time No Known Allergies Allergy Verified 02/18/23 12:39 Physical Exam Vitals: Vital Signs Temp Pulse Pulse Resp BP BP Pulse Ox 02/19/23 08:02 98.9 F 110 H 18 96/62 99 02/19/23 02:00 100.0 F H 86 16 95/61 99 02/18/23 19:57 102.0 F H 101 H 18 92/61 99 02/18/23 17:51 98.5 F 100 18 109/70 98 02/18/23 16:48 93 18 Intake and Output 02/19/23 02/19/23 02/19/23 06:59 14:59 22:59 Other: Voiding Method Toilet # Voids 2 Results CBC & Chem 7: 02/19/23 10:27 02/18/23 09:11 Labs: Abnormal Lab Results - Last 24 Hours (Table) 02/19/23 Range/Units 10:27 WBC 0.4 L* (3.8-10.6) k/uL RBC 2.50 L (3.80-5.40) m/uL Hgb 8.0 L (11.4-16.0) gm/dL Hct 24.2 L (34.0-46.0) % Plt Count 62 L (150-450) k/uL Assessment and Plan Plan: 1patient with febrile neutropenia in this patient with a history of poorly differentiated ductal carcinoma on chemotherapy last chemo about a week ago on 02/11/2023 and did have predominantly GI symptoms she did tested positive for COVID-19 however the patient currently do not have any respiratory symptoms is not hypoxic and chest x-ray was negative, treatment for COVID- will be mostly supportive 2-we will obtain stool cultures and stool for C. difficile 3-await procalcitonin and blood culture to finalize 4-continue empiric vancomycin and cefepime while waiting for the culture to fi nalize We will follow on clinical condition and cultures to further adjust medication if needed Thank you for this consultation we will follow the patient along with you Time with Patient: Greater than 30
[2023-02-19] MEDS: ONDANSETRON 4 MG/2 ML VIAL IVP PRN (20:17)
[2023-02-20] MEDS: VANCOMYCIN 2,000 MG in SODIUM CHLORIDE 0.9% 500 ML 500 ML IVPB SCH ×2 (00:07→13:30)
[2023-02-20] MEDS: CEFEPIME 2 GM in SODIUM CHLORIDE 0.9% 100 ML IVPB SCH ×4 (00:07→23:42)
[2023-02-20] MEDS: SODIUM CHLORIDE 0.9% 1,000 ML IV SCH ×4 (00:08→23:56)
[2023-02-20] MEDS: PROCHLORPERAZINE INJ 10 MG/2 ML VIAL IVP PRN ×3 (00:15→21:14)
[2023-02-20] MEDS: MULTIVITAMINS, THERA 1 EACH TAB PO SCH (08:54)
[2023-02-20] MEDS: ONDANSETRON 4 MG/2 ML VIAL IVP PRN ×3 (08:59→23:45)
[2023-02-20] MEDS ORDERED: VANCOMYCIN TROUGH DUE 1 EACH MISC MISCELLANE ONE (11:00)
--- NOTE | 2023-02-20 12:26 | P.PN ---
Subjective Progress Note Date: 02/20/23 Principal diagnosis: Fever. 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 2022 and had most recent chemotherapy on 02/11/2023. Lifelong nonsmoker. No other significant medical history. She presented here to the emergency room yesterday after developing nausea, vomiting, diarrhea with dizziness and lightheadedness and near syncopal episodes. White count 0.4. H emoglobin 8.0. Platelets 62,000. Sodium 136. Potassium 3.8. Bicarb 24. BUN 14. Creatinine 0.91. Glucose 110. AST 34. At all. 29. Troponin negative 1. C. difficile screen negative. Influenza screen negative. RSV screen negative. She was found to be positive for COVID-19. Chest x-ray reveals no acute cardiopulmonary process. Mediport noted in the left hemithorax. Receiving normal saline at 130 ML's per hour. Compazine and Zofran for nausea. Antibiotics of vancomycin and cefepime. Progress note dated 02/20/2023. 42-year-old female sent in consultation yesterday. She has a history of breast cancer, and has ongoing chemotherapy. Her most recent chemotherapy to place on 02/11/2023. She came into the hospital with pancytopenia, and suspected sepsis. She was started on vancomycin, and cefepime. Her chest x-ray was normal. She did test positive for coronavirus. Currently, she is on room air. She's not receiving any IV fluids. Her pro-calcitonin level was elevated at 0.44. Labs yesterday include a white count of 0.4, hemoglobin 8, hematocrit 24.2, and a platelet count of 62,000. Blood cultures are currently pending or negative Objective - Vital Signs Vital signs: Vital Signs Temp 98.8 F 02/20/23 07:18 Pulse 79 02/20/23 07:18 Resp 17 02/20/23 07:18 BP 93/58 02/20/23 07:18 Pulse Ox 98 02/20/23 07:18 FiO2 Intake & Output 02/19/23 02/20/23 02/20/23 18:59 06:59 18:59 Other: Voiding Method Toilet Toilet Toilet # Voids 5 2 # Bowel Movements 5 2 - Exam No acute distress, oriented 3. HEENT examination is grossly unremarkable. Neck supple. Full range of motion. No adenopathy thyromegaly or neck vein distention. Cardiovascular examination reveals regular rhythm rate. S1-S2 normal. No S3 or S4. No discernible murmur noted. Heart rate 79 bpm. Lungs reveal clear breath sounds. Breath sounds are equal bilaterally. No adventitious lung sounds including wheezes rhonchi or crackles. Abdomen soft bowel sounds are heard. No masses or tenderness. Extremities are intact. No cyanosis clubbing or edema. Skin is without rash or lesion. Neurologic examination is brief but nonfocal. - Labs CBC & Chem 7: 02/19/23 10:27 02/18/23 09:11 Labs: Abnormal Lab Results - Last 24 Hours (Table) 02/19/23 02/19/23 Range/Units 10:27 10:27 Plt Count 62 L (150-450) k/uL Procalcitonin 0.44 H (0.02-0.09) ng/mL Microbiology - Last 24 Hours (Table) 02/18/23 09:00 Blood Culture - Preliminary Blood 02/18/23 09:15 Blood Culture - Preliminary Blood Assessment and Plan Assessment: Near syncope secondary to nausea, vomiting, diarrhea. C. diff is currently single screen negative. COVID-19 screen positive. COVID-19 infection without COVID-19 pneumonia. 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 Most recent chemotherapy on 02/11/2023. Pancytopenia secondary to above. Nonsmoker. Plan: Plan dated 02/20/2023. The patient continues on vancomycin and cefepime. She's not having any respiratory issues. She is on room air. She's not receiving any IV fluids. The patient's pro-calcitonin level was 0.44. The patient's labs, x-rays, and medications have all been reviewed. The patient's overall prognosis remains guarded. We will continue to follow and make recommendations along the way. Time with Patient: Less than 30
[2023-02-20 13:15] LABS: African American GFR (CKD) >90 (>60 ml/min/1.73 sqM); Anion Gap 12 mmol/L; Blood Urea Nitrogen 9 mg/dL (7-17); Calcium 7.8 mg/dL (8.4-10.2); Carbon Dioxide 16 mmol/L (22-30); Chloride 109 mmol/L (98-107); Glucose 74 mg/dL (74-99); Non-African American GFR(CKD) >90 (>60 ml/min/1.73 sqM); Potassium 3.5 mmol/L (3.5-5.1); Sodium 137 mmol/L (137-145)
--- NOTE | 2023-02-20 13:42 | P.PN ---
Subjective Progress Note Date: 02/20/23 Principal diagnosis: Febrile neutropenia and Covid 19 Patient is a 42-year-old female with a past medical history difficult for breast cancer on chemotherapy last chemo about a week ago before presentation to the hospital presented with nausea vomiting diarrhea lighthea dedness patient was noticed to be febrile and did have a low white count also tested positive for COVID-19 On today's evaluation that is 02/20/2023, patient did spike a fever last evening however the patient is afebrile since then patient is feeling slightly better she is breathing comfortably on room air still complaining of nausea no further vomiting though diarrhea has slowed down no cough or sputum production Objective - Vital Signs Vital signs: Vital Signs Temp 98.8 F 02/20/23 07:18 Pulse 79 02/20/23 07:18 Resp 17 02/20/23 07:18 BP 93/58 02/20/23 07:18 Pulse Ox 98 02/20/23 07:18 FiO2 Intake & Output 02/19/23 02/20/23 02/20/23 18:59 06:59 18:59 Other: Voiding Method Toilet Toilet Toilet # Voids 5 2 # Bowel Movements 5 2 - Exam Middle-age female lying in bed in no distress Respiratory system unlabored breathing diminished breath sound Abdomen soft no tenderness Exam completed with the help of [facility] - Labs CBC & Chem 7: 02/19/23 10:27 02/20/23 12:13 Labs: Abnormal Lab Results - Last 24 Hours (Table) 02/19/23 02/19/23 Range/Units 10:27 10:27 WBC 0.4 L* (3.8-10.6) k/uL RBC 2.50 L (3.80-5.40) m/uL Hgb 8.0 L (11.4-16.0) gm/dL Hct 24.2 L (34.0-46.0) % Plt Count 62 L (150-450) k/uL Procalcitonin 0.44 H (0.02-0.09) ng/mL Microbiology - Last 24 Hours (Table) 02/18/23 09:00 Blood Culture - Preliminary Blood 02/18/23 09:15 Blood Culture - Preliminary Blood Assessment and Plan (1) COVID-19 Current Visit: Yes Status: Acute Code(s): U07.1 - COVID-19 SNOMED Code(s): 079238288 (2) Neutropenic fever Current Visit: Yes Status: Acute Priority: High Code(s): D70.9 - NEUTROPENIA, UNSPECIFIED; R50.81 - FEVER PRESENTING WITH CONDITIONS CLASSIFIED ELSEWHERE SNOMED Code(s): 647564581 Plan: 1patient with febrile neutropenia in this patient with a history of poorly differentiated ductal carcinoma on chemotherapy last chemo about a week ago on 02/11/2023 and did have predominantly GI symptoms she did tested positive for COVID-19 however the patient currently do not have any respiratory symptoms is not hypoxic and chest x-ray was negative, treatment for COVID- will be mostly supportive 2- stool cultures pending and stool for C. difficile negative 3- procalcitonin is 0.44 and blood culture are pending 4-Pt to continue empiric vancomycin and cefepime while waiting for the culture to finalize Time with Patient: Less than 30
[2023-02-20] MEDS ORDERED: ACETAMINOPHEN IV (For NPO) 1,000 MG in EMPTY BAG 1 BAG IVPB PRN (14:34)
--- NOTE | 2023-02-20 19:17 | P.HPIM ---
History of Present Illness H&P Date: 02/18/23 Chief Complaint: Near syncope 42year old female presenting to the ER via EMS for evaluation of near syncope. Patient is currently being treated for breast cancer and her last infusion treatment was , 02/11/23. Patient states this morning while getting out of bed she was extremely dizzy and felt like she was going to pass out. She states it took several minutes for her to get her bearings and go to the bathroom where the same dizzy spell occurred again. She states she is extremely nauseous which is normal for her and is on many medications for it. Patient reports she was scheduled for IV fluids today. She denies headaches, visual changes, chest pain, shortness of breath, abdominal pain, or urinary symptoms. In the ER patient was noticed to be febrile with a temperature of 102.9 F patient was tachycardic however the patient was not hypoxic or need for supp lemental oxygen patient was noticed to have a white count of 0.6 creatinine was normal liver enzymes are normal urine was negative patient did tested positive for COVID influenza RSV was negative patient did have a chest x-ray that was negative for acute cardiopulmonary process patient did have a history of COVID- 19 infection in 2020 and subsequently did receive vaccination for COVID-19 in 2021 and currently do not have a significant respiratory symptom of shortness of breath and cough Review of Systems REVIEW OF SYSTEMS: CONSTITUTIONAL: No fever, no malaise, no fatigue. HEENT: No recent visual problems or hearing problems. Denied any sore throat. CARDIOVASCULAR: No chest pain, orthopnea, PND, no palpitations, no syncope. PULMONARY: No shortness of breath, no cough, no hemoptysis. GASTROINTESTINAL: No diarrhea, no nausea, no vomiting, no abdominal pain. NEUROLOGICAL: No headaches, no weakness, no numbness. HEMATOLOGICAL: Denies any bleeding or petechiae. GENITOURINARY: Denies any burning micturition, frequency, or urgency. MUSCULOSKELETAL/RHEUMATOLOGICAL: Denies any joint pain, swelling, or any muscle pain. ENDOCRINE: Denies any polyuria or polydipsia. The rest of the 14-point review of systems is negative. Past Medical History Past Medical History: Cancer Additional Past Medical History / Comment(s): new dx. breast cancer History of Any Multi-Drug Resistant Organisms: None Reported Past Surgical History: Breast Surgery, Tonsillectomy Additional Past Surgical History / Comment(s): recent breast bx. Past Anesthesia/Blood Transfusion Reactions: No Reported Reaction Past Psychological History: No Psychological Hx Reported Smoking Status: Never smoker - Past Family History Father Family Medical History: Cancer Additional Family Medical History / Comment(s): brain, paternal grandmother breast cancer Medications and Allergies Home Medications Medication Instructions Recorded Confirmed Type Ergocalciferol [Vitamin D2 (1250 1,250 mcg PO WE 10/15/22 02/18/23 History Mcg = 38936 Iu)] Multivitamins, Thera [Multivitamin 1 tab PO DAILY 10/15/22 02/18/23 History (formulary)] OLANZapine [ZyPREXA] 2.5 mg PO DIRECTED 02/18/23 02/18/23 History Ondansetron Odt [Zofran Odt] 8 mg PO Q8HR PRN 02/18/23 02/18/23 History Ondansetron [Zofran] 4 - 8 mg PO Q4H PRN 02/18/23 02/18/23 History Prochlorperazine [Compazine] 10 mg PO Q6H PRN 02/18/23 02/18/23 History Triamcinolone 0.1% Cream [Kenalog 1 applicatio TOPICAL TID PRN 02/18/23 02/18/23 History 0.1% Cream] Allergies Allergy/AdvReac Type Severity Reaction Status Date / Time No Known Allergies Allergy Verified 02/18/23 12:39 Physical Exam Vitals: Vital Signs Temp Pulse Resp BP Pulse Ox 02/18/23 13:41 98.4 F 02/18/23 11:45 98.2 F 98 17 95/62 96 02/18/23 10:11 99.8 F H 107 H 18 98/65 95 02/18/23 08:52 102.9 F H 111 H 19 97/63 100 Intake and Output 02/18/23 02/18/23 02/18/23 06:59 14:59 22:59 Other: Weight 122.47 kg PHYSICAL EXAMINATION: GENERAL: The patient is alert and oriented x3, not in any acute distress. Well developed, well nourished. HEENT: Pupils are round and equally reacting to light. EOMI. No scleral icterus. No conjunctival pallor. Normocephalic, atraumatic. No pharyngeal erythema. No thyromegaly. CARDIOVASCULAR: S1 and S2 present. No murmurs, rubs, or gallops. PULMONARY: Chest is clear to auscultation, no wheezing or crackles. ABDOMEN: Soft, nontender, nondistended, normoactive bowel sounds. No palpable organomegaly. MUSCULOSKELETAL: No joint swelling or deformity. EXTREMITIES: No cyanosis, clubbing, or pedal edema. NEUROLOGICAL: Gross neurological examination did not reveal any focal deficits. SKIN: No rashes. Results CBC & Chem 7: 02/19/23 10:27 02/20/23 12:13 Labs: Abnormal Lab Results - Last 24 Hours (Table) 02/18/23 02/18/23 02/18/23 Range/Units 08:51 09:11 09:11 WBC 0.6 L* (3.8-10.6) k/uL RBC 2.84 L (3.80-5.40) m/uL Hgb 9.0 L (11.4-16.0) gm/dL Hct 26.9 L (34.0-46.0) % Plt Count 94 L (150-450) k/uL Sodium 136 L (137-145) mmol/L Glucose 110 H (74-99) mg/dL POC Glucose (mg/dL) 146 H (70-110) mg/dL Calcium 8.3 L (8.4-10.2) mg/dL Total Bilirubin 1.6 H (0.2-1.3) mg/dL Urine Appearance (Clear) Urine Protein (Negative) Ur Squamous Epith Cells (0-4) /hpf Amorphous Sediment (None) /hpf Urine Bacteria (None) /hpf Urine Mucus (None) /hpf SARS-CoV-2 (PCR) (Not Detectd) 02/18/23 02/18/23 Range/Units 09:11 09:11 WBC (3.8-10.6) k/uL RBC (3.80-5.40) m/uL Hgb (11.4-16.0) gm/dL Hct (34.0-46.0) % Plt Count (150-450) k/uL Sodium (137-145) mmol/L Glucose (74-99) mg/dL POC Glucose (mg/dL) (70-110) mg/dL Calcium (8.4-10.2) mg/dL Total Bilirubin (0.2-1.3) mg/dL Urine Appearance Cloudy H (Clear) Urine Protein Trace H (Negative) Ur Squamous Epith Cells 5 H (0-4) /hpf Amorphous Sediment Rare H (None) /hpf Urine Bacteria Rare H (None) /hpf Urine Mucus Many H (None) /hpf SARS-CoV-2 (PCR) Detected A (Not Detectd) Assessment and Plan Assessment: 1. Near syncope; likely related to dehydration caused by vomiting and diarrhea 2. COVID-19 infection; patient has predominant GI symptoms; chest x-ray is negative with no respiratory symptoms; ID and pulmonary on board and re commending supportive care 3. Pancytopenia; related to chemotherapy; last chemotherapy session on 02/11/2023 4. 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 Febrile neutropenia; patient has been placed on IV vancomycin and cefepime; patient has been pancultured; ID on board - Patient remains on IV fluid resuscitation; we will monitor CBC, CRP and pro- calcitonin 6. Acute onset diarrhea; likely multifactorial; continue with supportive care DVT prophylaxis; SCDs CODE STATUS; full code
--- NOTE | 2023-02-20 19:18 | P.PN ---
Subjective Progress Note Date: 02/19/23 42year old female presenting to the ER via EMS for evaluation of near syncope. Patient is currently being treated for breast cancer and her last infusion treatment was , 02/11/23. Patient states this morning while getting out of bed she was extremely dizzy and felt like she was going to pass out. She states it took several minutes for her to get her bearings and go to the bathroom where the same dizzy spell occurred again. She states she is extremely nauseous which is normal for her and is on many medications for it. Patient reports she was scheduled for IV fluids today. She denies headaches, visual changes, chest pain, shortness of breath, abdominal pain, or urinary symptoms. In the ER patient was noticed to be febrile with a temperature of 102.9 F patient was tachycardic however the patient was not hypoxic or need for supplemental oxygen patient was noticed to have a white count of 0.6 creatinine was normal liver enzymes are normal urine was negative patient did tested positive for COVID influenza RSV was negative patient did have a chest x-ray that was negative for acute cardiopulmonary process patient did have a history of COVID-19 infection in 2020 and subsequently did receive vaccination for COVID-19 in 2021 and currently do not have a significant respiratory symptom of shortness of breath and cough Objective - Vital Signs Vital signs: Vital Signs Temp 98.9 F 02/19/23 08:02 Pulse 110 H 02/19/23 08:02 Resp 18 02/19/23 08:02 BP 96/62 02/19/23 08:02 Pulse Ox 99 02/19/23 08:02 FiO2 Intake & Output 02/18/23 02/19/23 02/19/23 18:59 06:59 18:59 Weight 122.47 kg Other: Voiding Method Toilet # Voids 2 - Exam PHYSICAL EXAMINATION: GENERAL: The patient is alert and oriented x3, not in any acute distress. Well developed, well nourished. HEENT: Pupils are round and equally reacting to light. EOMI. No scleral icterus. No conjunctival pallor. Normocephalic, atraumatic. No pharyngeal erythema. No thyromegaly. CARDIOVASCULAR: S1 and S2 present. No murmurs, rubs, or gallops. PULMONARY: Chest is clear to auscultation, no wheezing or crackles. ABDOMEN: Soft, nontender, nondistended, normoactive bowel sounds. No palpable organomegaly. MUSCULOSKELETAL: No joint swelling or deformity. EXTREMITIES: No cyanosis, clubbing, or pedal edema. NEUROLOGICAL: Gross neurological examination did not reveal any focal deficits. SKIN: No rashes. - Labs CBC & Chem 7: 02/19/23 10:27 02/20/23 12:13 Labs: Abnormal Lab Results - Last 24 Hours (Table) 02/19/23 Range/Units 10:27 WBC 0.4 L* (3.8-10.6) k/uL RBC 2.50 L (3.80-5.40) m/uL Hgb 8.0 L (11.4-16.0) gm/dL Hct 24.2 L (34.0-46.0) % Assessment and Plan Assessment: 1. Near syncope; likely related to dehydration caused by vomiting and diarrhea 2. COVID-19 infection; patient has predominant GI symptoms; chest x-ray is negative with no respiratory symptoms; ID and pulmonary on board and recommending supportive care 3. Pancytopenia; related to chemotherapy; last chemotherapy session on 02/11/2023 4. 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 Febrile neutropenia; patient has been placed on IV vancomycin and cefepime; patient has been pancultured; ID on board - Patient remains on IV fluid resuscitation; we will monitor CBC, CRP and pro- calcitonin 6. Acute onset diarrhea; likely multifactorial; continue with supportive care DVT prophylaxis; SCDs CODE STATUS; full code
--- NOTE | 2023-02-20 19:20 | P.PN ---
Subjective Progress Note Date: 02/20/23 42year old female presenting to the ER via EMS for evaluation of near syncope. Patient is currently being treated for breast cancer and her last infusion treatment was , 02/11/23. Patient states this morning while getting out of bed she was extremely dizzy and felt like she was going to pass out. She states it took several minutes for her to get her bearings and go to the bathroom where the same dizzy spell occurred again. She states she is extremely nauseous which is normal for her and is on many medications for it. Patient reports she was scheduled for IV fluids today. She denies headaches, visual changes, chest pain, shortness of breath, abdominal pain, or urinary symptoms. In the ER patient was noticed to be febrile with a temperature of 102.9 F patient was tachycardic however the patient was not hypoxic or need for supplemental oxygen patient was noticed to have a white count of 0.6 creatinine was normal liver enzymes are normal urine was negative patient did tested positive for COVID influenza RSV was negative patient did have a chest x-ray that was negative for acute cardiopulmonary process patient did have a history of COVID-19 infection in 2020 and subsequently did receive vaccination for COVID-19 in 2021 and currently do not have a significant respiratory symptom of shortness of breath and cough 02/20/2023 Patient is seen and evaluated and discussed with nursing staff; its by fever last evening; continue to have nausea and vomiting; does report improvement in Vital signs are reviewed and stable with temperature 98.8, pulse 79, respirat ions 17 and blood pressure of 93/58 patient with febrile neutropenia in this patient with a history of poorly differentiated ductal carcinoma on chemotherapy last chemo about a week ago on 02/11/2023 and did have predominantly GI symptoms she did tested positive for COVID-19 however the patient currently do not have any respiratory symptoms is not hypoxic and chest x-ray was negative, treatment for COVID- will be mostly supportive - stool cultures pending and stool for C. difficile negative - procalcitonin is 0.44 and blood culture are pending -Pt to continue empiric vancomycin and cefepime while waiting for the culture to finalize Objective - Vital Signs Vital signs: Vital Signs Temp 98.8 F 02/20/23 07:18 Pulse 79 02/20/23 07:18 Resp 17 02/20/23 07:18 BP 93/58 02/20/23 07:18 Pulse Ox 98 02/20/23 07:18 FiO2 Intake & Output 02/19/23 02/20/23 02/20/23 18:59 06:59 18:59 Other: Voiding Method Toilet Toilet Toilet # Voids 5 2 # Bowel Movements 5 2 - Labs CBC & Chem 7: 02/19/23 10:27 02/20/23 12:13 Labs: Abnormal Lab Results - Last 24 Hours (Table) 02/19/23 02/20/23 Range/Units 10:27 12:13 Chloride 109 H (98-107) mmol/L Carbon Dioxide 16 L (22-30) mmol/L Calcium 7.8 L (8.4-10.2) mg/dL Procalcitonin 0.44 H (0.02-0.09) ng/mL Microbiology - Last 24 Hours (Table) 02/18/23 09:00 Blood Culture - Preliminary Blood 02/18/23 09:15 Blood Culture - Preliminary Blood
[2023-02-20] MEDS: VANCOMYCIN 1,750 MG in SODIUM CHLORIDE 0.9% 500 ML 500 ML IVPB SCH (23:57)
[2023-02-21] MEDS: SODIUM CHLORIDE 0.9% 1,000 ML IV SCH ×3 (05:14→21:04)
[2023-02-21] MEDS: CEFEPIME 2 GM in SODIUM CHLORIDE 0.9% 100 ML IVPB SCH ×3 (07:40→23:47)
[2023-02-21] MEDS: MULTIVITAMINS, THERA 1 EACH TAB PO SCH (07:41)
[2023-02-21] MEDS: ONDANSETRON 4 MG/2 ML VIAL IVP PRN (08:29)
[2023-02-21 09:49] LABS: Basophils # (A) 0.01 X 10*3/uL (0.00-0.10); Basophils % (A) 1.1 %; Eosinophils # (A) 0.01 X 10*3/uL (0.04-0.35); Eosinophils % (A) 1.1 %; HCT 21.8 % (37.2-46.3); HGB 6.9 d/dL (12.0-15.0); Lymphocytes # (A) 0.42 X 10*3/uL (0.90-5.00); Lymphocytes % (A) 47.7 %; MCH 31.1 pg (27.0-32.0); MCHC 31.7 d/dL (32.0-37.0); MCV 98.2 FL (80.0-97.0); Mean Platelet Volume 12.1 FL (9.5-12.2); Monocytes # (A) 0.09 X 10*3/uL (0.20-1.00); Monocytes % (A) 10.2 %; NRBC Per 100 WBC 0 X 10*3/uL (0.00-0.01); Neutrophils # (A) 0.34 X 10*3/uL (1.80-7.70); Neutrophils % (A) 38.8 %; Platelet Count 44 X 10*3/uL (140-440); RBC 2.22 X 10*6/uL (4.10-5.20); RDW 14.3 % (11.5-14.5); WBC 0.88 X 10*3/uL (4.50-10.00)
[2023-02-21 09:53] LABS: Blood Urea Nitrogen 6.4 mg/dL (9.0-27.0); Carbon Dioxide 15.6 mmol/L (21.6-31.8); Chloride 109 mmol/L (96-109); Glucose 71 mg/dL (70-110); Potassium 3.7 mmol/L (3.5-5.5); Sodium 139 mmol/L (135-145)
--- NOTE | 2023-02-21 11:59 | P.PN ---
Subjective Progress Note Date: 02/21/23 Principal diagnosis: Fever. This is a very pleasant 42-year-old female patient with a known history of invasive poorly differentiated ductal carcinoma breast cancer diagnosed in [facility] 2022 and had most recent chemotherapy on 02/11/2023. Lifelong nonsmoker. No other significant medical history. She presented here to the emergency room yesterday after developing nausea, vomiting, diarrhea with dizziness and lightheadedness and near syncopal episodes. White count 0.4. H emoglobin 8.0. Platelets 62,000. Sodium 136. Potassium 3.8. Bicarb 24. BUN 14. Creatinine 0.91. Glucose 110. AST 34. At all. 29. Troponin negative 1. C. difficile screen negative. Influenza screen negative. RSV screen negative. She was found to be positive for COVID-19. Chest x-ray reveals no acute cardiopulmonary process. Mediport noted in the left hemithorax. Receiving normal saline at 130 ML's per hour. Compazine and Zofran for nausea. Antibiotics of vancomycin and cefepime. Progress note dated 02/20/2023. 42-year-old female sent in consultation yesterday. She has a history of breast cancer, and has ongoing chemotherapy. Her most recent chemotherapy to place on 02/11/2023. She came into the hospital with pancytopenia, and suspected sepsis. She was started on vancomycin, and cefepime. Her chest x-ray was normal. She did test positive for coronavirus. Currently, she is on room air. She's not receiving any IV fluids. Her pro-calcitonin level was elevated at 0.44. Labs yesterday include a white count of 0.4, hemoglobin 8, hematocrit 24.2, and a platelet count of 62,000. Blood cultures are currently pending or negative Progress note dated 02/21/2023. 42-year-old female seen in consultation 2 days ago for neutropenic sepsis. The patient has a history of breast cancer, and is undergoing chemotherapy. She had her most recent chemotherapy session on 02/11/2023. She came into the hospital with pancytopenia, suspected neutropenic sepsis. The patient was started on vancomycin and cefepime. Her white count today is 0.88, hemoglobin 6.9, hemato crit 21.8, and platelet count 44,000. Sodium 139, potassium 3.7, chlorides 109, CO2 16, anion gap 14, BUN 6.4, and creatinine 0.8. Her pro-calcitonin level was elevated at 0.44. She denies urinary or GI complaints. She did test positive for coronavirus. She's on room air. She does not have any respiratory complaints. She continues on cefepime and vancomycin. Blood cultures have thus far been negative. Objective - Vital Signs Vital signs: Vital Signs Temp 98.2 F 02/21/23 07:32 Pulse 86 02/21/23 07:32 Resp 18 02/21/23 07:32 BP 94/60 02/21/23 07:32 Pulse Ox 100 02/21/23 07:32 FiO2 Intake & Output 02/20/23 02/21/23 02/21/23 18:59 06:59 18:59 Other: Voiding Method Toilet # Voids 2 3 # Bowel Movements 1 - Exam No acute distress, oriented 3. Room air saturation is 100%. HEENT examination is grossly unremarkable. Neck supple. Full range of motion. No adenopathy thyromegaly or neck vein distention. Cardiovascular examination reveals regular rhythm rate. S1-S2 normal. No S3 or S4. No discernible murmur noted. Heart rate 86 bpm. Lungs reveal clear breath sounds. Breath sounds are equal bilaterally. No adventitious lung sounds including wheezes rhonchi or crackles. Abdomen soft bowel sounds are heard. No masses or tenderness. Extremities are intact. No cyanosis clubbing or edema. Skin is without rash or lesion. Neurologic examination is brief but nonfocal. - Labs CBC & Chem 7: 02/21/23 03:26 02/21/23 03:26 Labs: Abnormal Lab Results - Last 24 Hours (Table) 02/20/23 02/21/23 02/21/23 Range/Units 12:13 03:26 03:26 WBC 0.88 H* (4.50-10.00) X 10*3/uL RBC 2.22 L (4.10-5.20) X 10*6/uL Hgb 6.9 H* (12.0-15.0) d/dL Hct 21.8 L (37.2-46.3) % MCV 98.2 H (80.0-97.0) FL MCHC 31.7 L (32.0-37.0) d/dL Plt Count 44 L (140-440) X 10*3/uL Neutrophils # 0.34 H* (1.80-7.70) X 10*3/uL Lymphocytes # 0.42 L (0.90-5.00) X 10*3/uL Monocytes # 0.09 L (0.20-1.00) X 10*3/uL Eosinophils # 0.01 L (0.04-0.35) X 10*3/uL Immature Plt Fraction 10.0 H (1.1-6.1) % Chloride 109 H (98-107) mmol/L Carbon Dioxide 16 L 15.6 L (22-30) mmol/L Anion Gap 14.40 H (4.00-12.00) mmol/L BUN 6.4 L (9.0-27.0) mg/dL BUN/Creatinine Ratio 8.00 L (12.00-20.00) Ratio Calcium 7.8 L 8.0 L (8.4-10.2) mg/dL Microbiology - Last 24 Hours (Table) 02/18/23 09:00 Blood Culture - Preliminary Blood 02/18/23 09:15 Blood Culture - Preliminary Blood Assessment and Plan Assessment: Near syncope secondary to nausea, vomiting, diarrhea. C. diff is currently negative. COVID-19 screen positive. Neutropenic sepsis. COVID-19 infection without COVID-19 pneumonia. 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 Most recent chemotherapy on 02/11/2023. Pancytopenia secondary to above. Nonsmoker. Plan: Plan dated 02/20/2023. The patient continues on vancomycin and cefepime. She's not having any respiratory issues. She is on room air. She's not receiving any IV fluids. The patient's pro-calcitonin level was 0.44. The patient's labs, x-rays, and medications have all been reviewed. The patient's overall prognosis remains guarded. We will continue to follow and make recommendations along the way. Plan dated 02/21/2023. The patient continues on vancomycin and cefepime as per infectious diseases. The patient's pro-calcitonin level was elevated. Cultures thus far are negative. She was having a bit of diarrhea, but that has settled down. She denies any respiratory complaints in any genitourinary complaints. We will continue to follow. She did test positive for coronavirus, but her chest x-ray is normal, and she does not have coronavirus associated pneumonia. Prognosis is guarded. Time with Patient: Less than 30
--- NOTE | 2023-02-21 15:03 | P.PN ---
Subjective Progress Note Date: 02/21/23 Principal diagnosis: Triple negative breast cancer -Tmax 102.2 F yesterday afternoon -Notes having persistent nausea with fatigue -She is having trouble keeping meals down without vomiting, as she vomited her breakfast this morning -She is anxious to be home Objective - Vital Signs Vital signs: Vital Signs Temp 97.3 F L 02/21/23 14:42 Pulse 78 02/21/23 14:42 Resp 16 02/21/23 14:42 BP 108/73 02/21/23 14:42 Pulse Ox 100 02/21/23 14:42 FiO2 Intake & Output 02/20/23 02/21/23 02/21/23 18:59 06:59 18:59 Intake Total 0 Balance 0 Intake: Blood Product 0 Unit 0 Other: Voiding Method Toilet # Voids 2 3 # Bowel Movements 1 - Constitutional General appearance: Present: cooperative, no acute distress - EENT Eyes: Present: EOMI - Respiratory Respiratory: bilateral: CTA - Cardiovascular Rhythm: regular - Gastrointestinal General gastrointestinal: Present: soft. Absent: distended - Integumentary Integumentary: Present: pale - Neurologic Neurologic: Present: CNII-XII intact. Absent: focal deficits - Psychiatric Psychiatric: Present: A&O x's 3 - Labs CBC & Chem 7: 02/21/23 03:26 02/21/23 03:26 Labs: Abnormal Lab Results - Last 24 Hours (Table) 02/21/23 02/21/23 02/21/23 Range/Units 03:26 03:26 12:42 WBC 0.88 H* (4.50-10.00) X 10*3/uL RBC 2.22 L (4.10-5.20) X 10*6/uL Hgb 6.9 H* (12.0-15.0) d/dL Hct 21.8 L (37.2-46.3) % MCV 98.2 H (80.0-97.0) FL MCHC 31.7 L (32.0-37.0) d/dL Plt Count 44 L (140-440) X 10*3/uL Neutrophils # 0.34 H* (1.80-7.70) X 10*3/uL Lymphocytes # 0.42 L (0.90-5.00) X 10*3/uL Monocytes # 0.09 L (0.20-1.00) X 10*3/uL Eosinophils # 0.01 L (0.04-0.35) X 10*3/uL Immature Plt Fraction 10.0 H (1.1-6.1) % Carbon Dioxide 15.6 L (21.6-31.8) mmol/L Anion Gap 14.40 H (4.00-12.00) mmol/L BUN 6.4 L (9.0-27.0) mg/dL BUN/Creatinine Ratio 8.00 L (12.00-20.00) Ratio Calcium 8.0 L (8.7-10.3) mg/dL Crossmatch See Detail Microbiology - Last 24 Hours (Table) 02/18/23 09:00 Blood Culture - Preliminary Blood 02/18/23 09:15 Blood Culture - Preliminary Blood Assessment and Plan (1) Antineoplastic chemotherapy induced pancytopenia Current Visit: Yes Status: Acute Priority: High Code(s): D61.810 - ANTINEOPLASTIC CHEMOTHERAPY INDUCED PANCYTOPENIA; T45.1X5A - ADVERSE EFFECT OF ANTINEOPLASTIC AND IMMUNOSUP DRUGS, INIT SNOMED Code(s): 126064644742884 (2) Breast cancer, right breast Current Visit: Yes Status: Chronic Priority: High Code(s): C50.911 - MALIGNANT NEOPLASM OF UNSP SITE OF RIGHT FEMALE BREAST SNOMED Code(s): 200643796 (3) COVID-19 Current Visit: Yes Status: Acute Code(s): U07.1 - COVID-19 SNOMED Code(s): 233315653 (4) Neutropenic fever Current Visit: Yes Status: Acute Priority: High Code(s): D70.9 - NEUTROPENIA, UNSPECIFIED; R50.81 - FEVER PRESENTING WITH CONDITIONS CLASSIFIED ELSEWHERE SNOMED Code(s): 381340815 Plan: #Neutropenic fever, Chemo-induced pancytopenia -Presented with fever and pancytopenia on admission with infectious work-up positive for COVID-19. C. difficile PCR was negative -Blood cultures from admission remain negative to date with chest x-ray negative for acute cardiopulmonary process -Her fevers are likely secondary to COVID-19 secondary to immunocompromise state from AC chemotherapy -Currently with cefepime and vancomycin ordered, although she has refused this today -Her CBC is notable for WBC 0.88 (ANC 0.34), hemoglobin 6.9, and platelets 44 -1 unit of irradiated packed red blood cells ordered -She received Neulasta with cycle 2 of AC on 02/11/2023 and is currently day 11 -Will continue to monitor counts daily. Transfuse for hemoglobin less than 7 and/or platelets less than 10,000 and/or bleeding #Chemotherapy-induced nausea/vomiting/diarrhea -Has had significant nausea and vomiting with AC chemotherapy -This could be slightly exacerbated by superimposed COVID-19 infection, but she did have nausea and vomiting with cycle 1 requiring use of Emend with cycle 2 that did not provide significant relief -She continues on IV Zofran and Compazine and patient with minimal to no relief -IV Ativan 0.5 mg every 6 hours as needed added to her antiemetic regimen -In addition, we will start Zyprexa 2.5 mg nightly #Triple negative breast cancer: -History of triple negative invasive ductal carcinoma of the right breast. PE T/CT noted FDG avidity in the right breast along with the right axilla and right retropectoral region with no evidence of distant metastatic disease -She completed 4 cycles of neoadjuvant carboplatin/paclitaxel/pembrolizumab, and has completed 2/4 cycles of AC plus pembrolizumab with neulasta on 02/11/2023. Currently day 11, cycle 2 of treatment -She has 2 additional cycles of AC plus pembrolizumab remaining. We discussed dose reduction with her last 2 cycles and we will discuss this further in clinic
--- NOTE | 2023-02-21 17:37 | P.PN ---
Subjective Progress Note Date: 02/21/23 42year old female presenting to the ER via EMS for evaluation of near syncope. Patient is currently being treated for breast cancer and her last infusion treatment was , 02/11/23. Patient states this morning while getting out of bed she was extremely dizzy and felt like she was going to pass out. She states it took several minutes for her to get her bearings and go to the bathroom where the same dizzy spell occurred again. She states she is extremely nauseous which is normal for her and is on many medications for it. Patient reports she was scheduled for IV fluids today. She denies headaches, visual changes, chest pain, shortness of breath, abdominal pain, or urinary symptoms. In the ER patient was noticed to be febrile with a temperature of 102.9 F patient was tachycardic however the patient was not hypoxic or need for supplemental oxygen patient was noticed to have a white count of 0.6 creatinine was normal liver enzymes are normal urine was negative patient did tested positive for COVID influenza RSV was negative patient did have a chest x-ray that was negative for acute cardiopulmonary process patient did have a history of COVID-19 infection in 2020 and subsequently did receive vaccination for COVID-19 in 2021 and currently do not have a significant respiratory symptom of shortness of breath and cough 02/20/2023 Patient is seen and evaluated and discussed with nursing staff; its by fever last evening; continue to have nausea and vomiting; does report improvement in Vital signs are reviewed and stable with temperature 98.8, pulse 79, respirat ions 17 and blood pressure of 93/58 patient with febrile neutropenia in this patient with a history of poorly differentiated ductal carcinoma on chemotherapy last chemo about a week ago on 02/11/2023 and did have predominantly GI symptoms she did tested positive for COVID-19 however the patient currently do not have any respiratory symptoms is not hypoxic and chest x-ray was negative, treatment for COVID- will be mostly supportive - stool cultures pending and stool for C. difficile negative - procalcitonin is 0.44 and blood culture are pending -Pt to continue empiric vancomycin and cefepime while waiting for the culture to finalize 02/21/2023 Patient seen and evaluated and discussed with nursing staff; has been refusing IV antibiotics due to episodes of nausea and vomiting; one episode of elevated temperature yesterday with T-max of 102.2 Patient is currently on IV antibiotics in form of cefepime and vancomycin for neutropenic fever; ID has not changed recommendations for antibiotic therapy yet; patient wants antibiotics discontinued and wants to be monitored off antibiotics -- Blood work reveals WBC of 0.88 with ANC of 0.34, hemoglobin of 69 and platelet count of 44; hematology on board and recommending transfusion with 1 unit packed RBCs; monitor CBC closely; -She received Neulasta with cycle 2 of AC on 02/11/2023 and is currently day 11 -- Patient has chemotherapy-induced nausea and vomiting superimposed by COVID-19 infection; currently on IV Zofran and Compazine; oncology recommending to add IV Ativan 0.5 mg every 6 hours as needed to her antiemetic regimen; patient is recommended Zyprexa 2.5 mg daily at bedtime Objective - Vital Signs Vital signs: Vital Signs Temp 98.4 F 02/21/23 16:57 Pulse 79 02/21/23 16:57 Resp 16 02/21/23 16:57 BP 113/75 02/21/23 16:57 Pulse Ox 100 02/21/23 16:57 FiO2 Intake & Output 02/20/23 02/21/23 02/21/23 18:59 06:59 18:59 Intake Total 310 Balance 310 Intake: Blood Product 310 Rc Irr As1 Unit 310 [id number] Other: Voiding Method Toilet # Voids 2 3 # Bowel Movements 1 - Exam PHYSICAL EXAMINATION: GENERAL: The patient is alert and oriented x3, not in any acute distress. Well developed, well nourished. HEENT: Pupils are round and equally reacting to light. EOMI. No scleral icterus. No conjunctival pallor. Normocephalic, atraumatic. No pharyngeal erythema. No thyromegaly. CARDIOVASCULAR: S1 and S2 present. No murmurs, rubs, or gallops. PULMONARY: Chest is clear to auscultation, no wheezing or crackles. ABDOMEN: Soft, nontender, nondistended, normoactive bowel sounds. No palpable organomegaly. MUSCULOSKELETAL: No joint swelling or deformity. EXTREMITIES: No cyanosis, clubbing, or pedal edema. NEUROLOGICAL: Gross neurological examination did not reveal any focal deficits. SKIN: No rashes. - Labs CBC & Chem 7: 02/21/23 03:26 02/21/23 03:26 Labs: Abnormal Lab Results - Last 24 Hours (Table) 02/21/23 02/21/23 02/21/23 Range/Units 03:26 03:26 12:42 WBC 0.88 H* (4.50-10.00) X 10*3/uL RBC 2.22 L (4.10-5.20) X 10*6/uL Hgb 6.9 H* (12.0-15.0) d/dL Hct 21.8 L (37.2-46.3) % MCV 98.2 H (80.0-97.0) FL MCHC 31.7 L (32.0-37.0) d/dL Plt Count 44 L (140-440) X 10*3/uL Neutrophils # 0.34 H* (1.80-7.70) X 10*3/uL Lymphocytes # 0.42 L (0.90-5.00) X 10*3/uL Monocytes # 0.09 L (0.20-1.00) X 10*3/uL Eosinophils # 0.01 L (0.04-0.35) X 10*3/uL Immature Plt Fraction 10.0 H (1.1-6.1) % Carbon Dioxide 15.6 L (21.6-31.8) mmol/L Anion Gap 14.40 H (4.00-12.00) mmol/L BUN 6.4 L (9.0-27.0) mg/dL BUN/Creatinine Ratio 8.00 L (12.00-20.00) Ratio Calcium 8.0 L (8.7-10.3) mg/dL Crossmatch See Detail Microbiology - Last 24 Hours (Table) 02/18/23 09:00 Blood Culture - Preliminary Blood 02/18/23 09:15 Blood Culture - Preliminary Blood Assessment and Plan Assessment: 1. Near syncope; likely related to dehydration caused by vomiting and diarrhea 2. COVID-19 infection; patient has predominant GI symptoms; chest x-ray is negative with no respiratory symptoms; ID and pulmonary on board and recommending supportive care 3. Pancytopenia; related to chemotherapy; last chemotherapy session on 02/11/2023 4. 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 Febrile neutropenia; patient has been placed on IV vancomycin and cefepime; patient has been pancultured; ID on board - Patient remains on IV fluid resuscitation; we will monitor CBC, CRP and pro- calcitonin 6. Acute onset diarrhea; likely multifactorial; continue with supportive care DVT prophylaxis; SCDs CODE STATUS; full code
[2023-02-21] MEDS: LORazepam 2 MG/ML INJ IV PRN (18:27)
[2023-02-21] MEDS: OLANZapine 2.5 MG TAB PO SCH (21:02)
[2023-02-21] MEDS: VANCOMYCIN 1,750 MG in SODIUM CHLORIDE 0.9% 500 ML 500 ML IVPB SCH (21:02)
[2023-02-22] MEDS: SODIUM CHLORIDE 0.9% 1,000 ML IV SCH ×4 (01:44→23:24)
[2023-02-22] MEDS: LORazepam 2 MG/ML INJ IV PRN ×3 (06:30→21:07)
[2023-02-22] MEDS: MULTIVITAMINS, THERA 1 EACH TAB PO SCH (08:38)
[2023-02-22] MEDS: CEFEPIME 2 GM in SODIUM CHLORIDE 0.9% 100 ML IVPB SCH ×3 (08:59→23:22)
[2023-02-22 10:57] LABS: Basophils # (A) 0.01 X 10*3/uL (0.00-0.10); Basophils % (A) 0.7 %; Eosinophils # (A) 0.02 X 10*3/uL (0.04-0.35); Eosinophils % (A) 1.5 %; HCT 24.9 % (37.2-46.3); Immature Platelet Fraction 10.2 % (1.1-6.1); Lymphocytes # (A) 0.41 X 10*3/uL (0.90-5.00); Lymphocytes % (A) 30.6 %; MCH 30.5 pg (27.0-32.0); MCHC 32.1 d/dL (32.0-37.0); Mean Platelet Volume 12.8 FL (9.5-12.2); Monocytes # (A) 0.18 X 10*3/uL (0.20-1.00); Monocytes % (A) 13.4 %; NRBC Per 100 WBC 0 X 10*3/uL (0.00-0.01); Neutrophils # (A) 0.71 X 10*3/uL (1.80-7.70); Neutrophils % (A) 53.1 %; Platelet Count 49 X 10*3/uL (140-440); RBC 2.62 X 10*6/uL (4.10-5.20); RBC Morphology Normal (Normal); RDW 16.3 % (11.5-14.5); WBC 1.34 X 10*3/uL (4.50-10.00)
[2023-02-22] MEDS: MAG HYDROX/AL HYDROX/SIMETH 30 ML, diphenhydrAMINE ELIXIR 75 MG, LIDOCAINE VISCOUS 2% 3... PO SCH ×9 (11:23→19:50)
--- NOTE | 2023-02-22 12:10 | CDI ---
Documentation Clarification Form Date: 02/22/2023 11:40:05 AM From: Melodie Lott RN CCDS Phone: [phone] Admit Date: 02/18/2023 03:48:00 PM Patient Name: Itzel Jones Visit Number: [id number] Discharge Date: ATTENTION: The Clinical Documentation Specialists (CDI) and [employer] Coding Staff appreciate your assistance in clarifying documentation. Please respond to the clarification below the line at the bottom and electronically sign. The CDI & [employer] Coding staff will review the response and follow-up if needed. Please note: Queries are made part of the Legal Health Record. If you have any questions, please contact the author of this message via ITS. Dr. Paulina Pyle The patient has Neutropenic Sepsis. Based on this information and the findings below, is the diagnosis that is clinically appropriate for this patient? History/Risk Factors: 42-year-old female presents to the ED with near syncope. Medical history: Ductal carcinoma right breast, recent chemo 02/11/2023. H&P, 02/18. Clinical Indicators: WBC, 02/18: 0.6 Vitals signs: B/P 97/63; HR 111; Temp 102.9 F; RR 19; SpO2 100% room air Blood Cultures, 02/21: No growth after 72 hours Covid 19, Detected CXR, 02/18: No acute process. Pulmonary consult, 02/19: She is placed on good antibiotics for neutropenic sepsis. Treatment: ID Consult, 02/19: 1 - Patient with febrile neutropenia in this patient with a history of poorly Differentiated ductal carcinoma on chemotherapy last chemo about a week ago on 02/11/2023 and did have predominantly GI symptoms she did tested positive for COVID-19. 2- stool cultures pending and stool for C. difficile negative 3- procalcitonin is 0.44 and blood culture are pending 4-Pt to continue empiric vancomycin and cefepime while waiting for the culture to finalize Antibiotics: 02/18 Cefepime IVPB Q8HR; 02/19 02/20 Vancomycin IVPB Q12HR; 02/21 Vancomycin IVPB Q16HR; IV Bolus: 02/18 0.9NS 1L bolus Is this diagnosis clinically appropriate for this patient? [ ] Sepsis, present on admission [ ] Sepsis ruled out [ x ] SIRS, without underlying infectious process [ ] Other, please specify [ ] Unable to determine SIRS Criteria: 2 or more of the following may indicate SIRS Temperature < 96.8F (36C) or > 101.0F (38.3C) Heart Rate > 90 bpm Respiratory Rate > 20 breaths/min or PaCO2 < 32 mmHg White Blood Cell Count > 12,000 or < 4,000 cells/mm3 or > 10% bands (Template Last Reviewed: August 2022) MELANID
--- NOTE | 2023-02-22 12:37 | P.PN ---
Subjective Progress Note Date: 02/22/23 Principal diagnosis: breast cancer, neutropenic fever At today's visit patient reports feeling improvement in symptoms s/p addition of olanzapine and Ativan. Patient states nausea has improved and denies vomiting. Reports one episode of diarrhea daily S/P Imodium. Patient has been afebrile 48 hours, however remains neutropenic despite Neulasta 12 days ago. Will order granix for additional WBC support. Also reporting mouth sores, will add KOOLs solution and salt and soda rinses Objective - Vital Signs Vital signs: Vital Signs Temp 98.7 F 02/22/23 06:42 Pulse 83 02/22/23 06:42 Resp 20 02/22/23 06:42 BP 100/65 02/22/23 06:42 Pulse Ox 98 02/22/23 06:42 FiO2 Intake & Output 02/21/23 02/22/23 02/22/23 18:59 06:59 18:59 Intake Total 310 Balance 310 Intake: Blood Product 310 Rc Irr As1 Unit 310 [id number] Other: # Voids 1 2 - Constitutional General appearance: Present: no acute distress, obese - EENT EENT Comment(s): mucositis noted Eyes: Present: anicteric sclerae, EOMI ENT: Present: hearing grossly normal - Respiratory Respiratory: bilateral: CTA - Cardiovascular Rhythm: regular Heart sounds: normal: S1, S2 Abnormal Heart Sounds: Absent: systolic murmur, diastolic murmur, rub, S3 Gallop, S4 Gallop, click, other - Gastrointestinal General gastrointestinal: Present: soft. Absent: tenderness - Integumentary Integumentary: Absent: cyanotic - Neurologic Neurologic Comment(s): grossly intact - Musculoskeletal Musculoskeletal: Present: generalized weakness - Psychiatric Psychiatric: Present: A&O x's 3, appropriate affect, intact judgment & insight - Labs CBC & Chem 7: 02/22/23 04:34 02/21/23 03:26 Labs: Abnormal Lab Results - Last 24 Hours (Table) 02/21/23 02/22/23 Range/Units 12:42 04:34 WBC 1.34 H* (4.50-10.00) X 10*3/uL RBC 2.62 L (4.10-5.20) X 10*6/uL Hgb 8.0 L (12.0-15.0) d/dL Hct 24.9 L (37.2-46.3) % RDW 16.3 H (11.5-14.5) % Plt Count 49 L (140-440) X 10*3/uL MPV 12.8 H (9.5-12.2) FL Neutrophils # 0.71 L (1.80-7.70) X 10*3/uL Lymphocytes # 0.41 L (0.90-5.00) X 10*3/uL Monocytes # 0.18 L (0.20-1.00) X 10*3/uL Eosinophils # 0.02 L (0.04-0.35) X 10*3/uL Immature Plt Fraction 10.2 H (1.1-6.1) % Crossmatch See Detail Microbiology - Last 24 Hours (Table) 02/18/23 09:00 Blood Culture - Preliminary Blood 02/18/23 09:15 Blood Culture - Preliminary Blood Assessment and Plan (1) Neutropenic fever Current Visit: Yes Status: Acute Priority: High Code(s): D70.9 - NEUTROPENIA, UNSPECIFIED; R50.81 - FEVER PRESENTING WITH CONDITIONS CLASSIFIED ELSEWHERE SNOMED Code(s): 252389683 (2) Breast cancer, right breast Current Visit: Yes Status: Chronic Priority: High Code(s): C50.911 - MALIGNANT NEOPLASM OF UNSP SITE OF RIGHT FEMALE BREAST SNOMED Code(s): 853681789 (3) Antineoplastic chemotherapy induced pancytopenia Current Visit: Yes Status: Acute Priority: High Code(s): D61.810 - ANTINEOPLASTIC CHEMOTHERAPY INDUCED PANCYTOPENIA; T45.1X5A - ADVERSE EFFECT OF ANTINEOPLASTIC AND IMMUNOSUP DRUGS, INIT SNOMED Code(s): 100200818193059 Plan: #Neutropenic fever, Chemo-induced pancytopenia -Presented with fever and pancytopenia on admission with infectious work-up positive for COVID-19. C. difficile PCR was negative -Blood cultures from admission remain negative to date with chest x-ray negative for acute cardiopulmonary process -Her fevers are likely secondary to COVID-19 secondary to immunocompromise state from AC chemotherapy -Continues with cefepime and vancomycin -WBC improved today, 1.34, ANC 710. Patient has been afebrile 48 hours, however remains neutropenic despite Neulasta 12 days ago. Will order granix for additional WBC support to achieve ANC >1000. -S/p 1 unit of irradiated packed red blood cells. Hemoglobin improved with appropriate response, 8.0 today. Platelets 49,000 -Will continue to monitor counts daily. Transfuse for hemoglobin less than 7 and/or platelets less than 10,000 and/or bleeding #Chemotherapy-induced nausea/vomiting/diarrhea -Has had significant nausea and vomiting with AC chemotherapy -This could be slightly exacerbated by superimposed COVID-19 infection, but she did have nausea and vomiting with cycle 1 requiring use of Emend with cycle 2 that did not provide significant relief -She continues on IV Zofran and Compazine and patient with minimal to no relief -IV Ativan 0.5 mg every 6 hours as needed ands zyrexa 2.5 nighly added to her antiemetic regimen, with improvement in symptoms. -Reports improvement in diarrhea S/P Imodium. #Triple negative breast cancer: -History of triple negative invasive ductal carcinoma of the right breast. PET/CT noted FDG avidity in the right breast along with the right axilla and right retropectoral region with no evidence of distant metastatic disease -She completed 4 cycles of neoadjuvant carboplatin/paclitaxel/pembrolizumab, and has completed 2/4 cycles of AC plus pembrolizumab with neulasta on 02/11/2023. Currently day 11, cycle 2 of treatment -She has 2 additional cycles of AC plus pembrolizumab remaining. We discussed dose reduction with her last 2 cycles and we will discuss this further in clinic attests: I performed H&P and developed impression and plan of care for patient, discussed with dictator. I agree with dictated note, documented as a scribe
--- NOTE | 2023-02-22 13:43 | P.PN ---
Subjective Progress Note Date: 02/22/23 42year old female presenting to the ER via EMS for evaluation of near syncope. Patient is currently being treated for breast cancer and her last infusion treatment was , 02/11/23. Patient states this morning while getting out of bed she was extremely dizzy and felt like she was going to pass out. She states it took several minutes for her to get her bearings and go to the bathroom where the same dizzy spell occurred again. She states she is extremely nauseous which is normal for her and is on many medications for it. Patient reports she was scheduled for IV fluids today. She denies headaches, visual changes, chest pain, shortness of breath, abdominal pain, or urinary symptoms. In the ER patient was noticed to be febrile with a temperature of 102.9 F patient was tachycardic however the patient was not hypoxic or need for supplemental oxygen patient was noticed to have a white count of 0.6 creatinine was normal liver enzymes are normal urine was negative patient did tested positive for COVID influenza RSV was negative patient did have a chest x-ray that was negative for acute cardiopulmonary process patient did have a history of COVID-19 infection in 2020 and subsequently did receive vaccination for COVID-19 in 2021 and currently do not have a significant respiratory symptom of shortness of breath and cough 02/20/2023 Patient is seen and evaluated and discussed with nursing staff; its by fever last evening; continue to have nausea and vomiting; does report improvement in Vital signs are reviewed and stable with temperature 98.8, pulse 79, respirations 17 and blood pressure of 93/58 patient with febrile neutropenia in this patient with a history of poorly differentiated ductal carcinoma on chemotherapy last chemo about a week ago on 02/11/2023 and did have predominantly GI symptoms she did tested positive for COVID-19 however the patient currently do not have any respiratory symptoms is not hypoxic and chest x-ray was negative, treatment for COVID- will be mostly fallon pportive - stool cultures pending and stool for C. difficile negative - procalcitonin is 0.44 and blood culture are pending -Pt to continue empiric vancomycin and cefepime while waiting for the culture to finalize 02/21/2023 Patient seen and evaluated and discussed with nursing staff; has been refusing IV antibiotics due to episodes of nausea and vomiting; one episode of elevated temperature yesterday with T-max of 102.2 Patient is currently on IV antibiotics in form of cefepime and vancomycin for neutropenic fever; ID has not changed recommendations for antibiotic therapy yet; patient wants antibiotics discontinued and wants to be monitored off antibiotics -- Blood work reveals WBC of 0.88 with ANC of 0.34, hemoglobin of 69 and platelet count of 44; hematology on board and recommending transfusion with 1 unit packed RBCs; monitor CBC closely; -She received Neulasta with cycle 2 of AC on 02/11/2023 and is currently day 11 -- Patient has chemotherapy-induced nausea and vomiting superimposed by COVID-19 infection; currently on IV Zofran and Compazine; oncology recommending to add IV Ativan 0.5 mg every 6 hours as needed to her antiemetic regimen; patient is recommended Zyprexa 2.5 mg daily at bedtime 02/22. Patient seen and examined. Patient has been afebrile. Still having nausea and very poor appetite. REVIEW OF SYSTEMS: CONSTITUTIONAL: No fever, no malaise,. CARDIOVASCULAR: No chest pain, no palpitations, no syncope. PULMONARY: No shortness of breath, no cough, GASTROINTESTINAL: No diarrhea, no abdominal pain. NEUROLOGICAL: No headaches, no weakness, PHYSICAL EXAMINATION: GENERAL: The patient is alert and oriented x3, not in any acute distress. Well developed, well nourished. HEENT: Pupils are round and equally reacting to light. EOMI. No scleral icterus. No conjunctival pallor. Normocephalic, atraumatic. No pharyngeal erythema. No t hyromegaly. CARDIOVASCULAR: S1 and S2 present. No murmurs, rubs, or gallops. PULMONARY: Chest is clear to auscultation, no wheezing or crackles. ABDOMEN: Soft, nontender, nondistended, normoactive bowel sounds. No palpable organomegaly. MUSCULOSKELETAL: No joint swelling or deformity. EXTREMITIES: No cyanosis, clubbing, or pedal edema. NEUROLOGICAL: Gross neurological examination did not reveal any focal deficits. SKIN: No rashes. Assessment and plan Near syncope dehydration caused by vomiting and diarrhea COVID-19 infection Pancytopenia; related to chemotherapy; last chemotherapy session on 02/11/2023 History of invasive poorly differentiated ductal carcinoma right breast; most recent chemotherapy on 02/11/2023 Febrile neutropenia Acute onset diarrhea; Monitor vital signs Monitor CBC Monitor CMP Continue telemetry monitoring Follow-up on blood cultures Continue IV cefepime and vancomycin ID on board Hematology oncology following Labs and medication were reviewed.. Continue same treatment. Continue with symptomatic treatment. Monitor labs and vitals. DVT and GI prophylaxis. Further recommendations as per clinical course of the patient DVT prophylaxis: Eliquis Objective - Vital Signs Vital signs: Vital Signs Temp 98.7 F 02/22/23 06:42 Pulse 83 02/22/23 06:42 Resp 20 02/22/23 06:42 BP 100/65 02/22/23 06:42 Pulse Ox 98 02/22/23 06:42 FiO2 Intake & Output 02/21/23 02/22/23 02/22/23 18:59 06:59 18:59 Intake Total 310 Balance 310 Intake: Blood Product 310 Rc Irr As1 Unit 310 [id number] Other: # Voids 1 2 - Labs CBC & Chem 7: 02/22/23 04:34 02/21/23 03:26 Labs: Abnormal Lab Results - Last 24 Hours (Table) 02/21/23 Range/Units 12:42 Crossmatch See Detail Microbiology - Last 24 Hours (Table) 02/18/23 09:00 Blood Culture - Preliminary Blood 02/18/23 09:15 Blood Culture - Preliminary Blood
--- NOTE | 2023-02-22 15:07 | P.PN ---
Subjective Progress Note Date: 02/22/23 The patient is seen today 02/11/2023 in follow-up on the selective care unit. He is currently awake and alert. Maintaining O2 saturations in the upper 90s on 4 L/m per nasal cannula. He's been afebrile. Hemodynamically stable. Computed tomography scan of the abdomen and pelvis revealed a dilated appendix with gas within the tip. There is some nonspecific surrounding fluid/stranding. Findings could be seen with acute appendicitis. Gas and stool filled dilated colon and rectum without focal transition point suggestive of an colonic ileus. 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 Hepatic cirrhosis with findings suggestive of portal hypertension with trace ascites and splenic collaterals. Right adrenal gland lipid rich adenoma. Nonobstructive bilateral renal calculi. Surgical services are following. Nasogastric tube has been placed. Today's chest x-ray reveals cardiomegaly. Chronic parenchymal changes without new focal airspace opacity, pleural effusion or pneumothorax. Blood cultures revealed no growth. White count 23.9. Hemoglobin 7.5. MCV is 122. Platelet count 73,000. Sodium 136. Potassium 3.1. Bicarb 30. BUN 59. Creatinine 1.74. Glucose 337. He is continued on DuoNeb inhalations, Pulmicort inhalations, prednisone taper. She is on Xifaxan, Zosyn, Levaquin. Lovenox for anticoagulation. The patient is seen today 02/12/2023 in follow-up on the selective care unit. He is awake, alert, oriented. Resting fairly comfortably in bed. Denies any worsening shortness of breath, cough or congestion. Denies any significant abdo pablo pain. Nasogastric tube remains in place. Chest x-ray reveals cardiomegaly. Chronic parenchymal changes without any new focal airspace opacities, pleural effusion or pneumothorax. He is maintaining good O2 saturations in the upper 90s on 2 L/m per nasal cannula. He is afebrile. Hemodynamically stable. White count 19.6. Hemoglobin 7.5. Platelets 94,000. Sodium 146. Potassium 2.9. Bicarb 33. BUN 65. Creatinine 1.94. Glucose 137. He remains on rifaximin and Zosyn. Continued on bronchodilators. Patient is seen today 02/13/2023 in follow-up on the selective care unit. He is resting comfortably in bed. He remains awake, alert, oriented. His is at the bedside. He is having bowel movements. Nasogastric tube remains in place. Blood cultures revealed no growth. Blood sugar 156. He is continued on DuoNeb inhalations. Prednisone taper. Remains on Zosyn. Remains on rifaximin. Anticoagulated with Lovenox. Continued on D5W at 50 MLS per hour. The patient is seen today 02/15/2023 in follow-up on the selective care unit. He remains awake and alert oriented. His is at the bedside. He is resting comfortably in bed. He is having bowel movements. Nasogastric tube has been discontinued. He is tolerating a liquid diet. Denies any abdominal discomfort. No nausea or vomiting. Blood cultures revealed no growth in blood glucose 174. He remains on DuoNeb inhalations, Pulmicort inhalations. Prednisone taper. Antibiotics in the form of Zosyn. Lovenox for anticoagulation. Progress note dated 02/16/2023. The patient is seen today in room 372. The patient apparently will not be discharged today, because his hemoglobin was 7.2, and his sodium was 122. The patient's on room air. The patient is not receiving any IV fluids. Clinically, the patient looks very safe, and could be discharged home from the pulmonary standpoint. White count is 19.8, hemoglobin 7.2, hematocrit 21.4, and platelet count of 72,000. Sodium is 122, potassium 4.1, chlorides 92, CO2 26, BUN 52, and creatinine 2.08. Blood cultures are negative. Progress note dated 02/17/2023. The patient is seen today in room 372. The patient was not discharged yesterday, because of a low hemoglobin of 7.2 and a low sodium of 123. The patient clinically is stable. He is on room air. He is not receiving any IV fluids and he was waiting for his lab results today. He has no new complaints today. Labs, currently pending at the time of this dictation. Blood cultures were negative. Progress note dated 02/18/2023. The patient is seen today in room 372. Sitting in a chair next to his bed. His is in the room with him. Yesterday, the patient received a unit of blood, because his hemoglobin was 6.9. Today, it 7.5. In addition, the patient's sodium today is 123. He is on room air. He's not receiving any IV fluids. His Perry catheter has been removed. He is hoping to be discharged today. White count is 19.9, hemoglobin 7.5, hematocrit 23, and platelet count a 61,000. Sodium 123, potassium 4, chlorides 95, CO2 21, BUN 52, and creatinine 1.81. Bl ood cultures are all negative. Progress note dated 02/19/2023. The patient is seen today in room 258. He was transferred to the intensive care unit, for ongoing hyponatremia. Nephrology wanted the patient to be placed on 3% saline infusion, and for that reason, he was transferred to the ICU. This morning's sodium was 125. 3% saline has been turned off. He is not receiving any additional IV fluids. He is on room air. He denies any abdominal pain. Hemoglobin is 7.6. White count 15.3, hemoglobin 7.6, hematocrit 22.8, and platelet count is 48,000. Sodium 125, potassium 4.2, chlorides 99, CO2 21, BUN 52, and creatinine 1.61. Blood cultures are negative. Chest x-ray shows a lower lobe infiltrate and/or atelectasis. Progress note dated 02/20/2023. The patient is seen today in room 258. The patient had an uneventful night. He is on room air. He is not receiving any IV fluids. This morning's sodium was 126. In our opinion, the patient could be discharged to the general medical floor, or, discharged home. White count 12.4, hemoglobin 7.1, hematocrit 21.9, with a platelet count of 47,000. Sodium this morning is 126, potassium 4.8, chlorides 102, CO2 23, BUN 52, and creatinine 1.55. Progress note dated 02/21/2023. The patient is seen today in room 258. The patient was transferred to the intensive care unit, because of low sodium. He did receive some 3% saline. His most recent sodium is 131. Clinically he is doing well. He has no complaints. He denies any abdominal pain. White count count is 11.1, hemoglobin 7.2, hematocrit 23.8, and a platelet count of 45,000. Sodium 131, potassium 5.3, chlorides 104, CO2 24, BUN 52, creatinine 1.43. His TSH is normal. On today's evaluation of 02/22/2023, the patient is on room air oxygen. She has no specific complaints. She is, comfortable and resting comfortably in bed. No nausea. No vomiting. No diarrhea or abdominal pain. No shortness of breath. The patient remains on IV cefepime and she is also on zarxio regarding ongoing issues with leukopenia. The patient's WBC count was low at 0.4 and currently is up to 1.34 and hemoglobin is at 8 with a platelet count of 49. Noted the patient received a unit of packed RBC during this current admission. The blood cultures still negative for now. The patient is on room air oxygen. The patient is infected with Covid 19. The patient has been infected in the past and this is her second infection. Origin infection was in 2020 and the patient has been vaccinated with 2 doses of Pfizer vaccine. Objective - Vital Signs Vital signs: Vital Signs Temp 98.7 F 02/22/23 06:42 Pulse 83 02/22/23 06:42 Resp 20 02/22/23 06:42 BP 100/65 02/22/23 06:42 Pulse Ox 98 02/22/23 06:42 FiO2 Intake & Output 02/21/23 02/22/23 02/22/23 18:59 06:59 18:59 Intake Total 310 Balance 310 Intake: Blood Product 310 Rc Irr As1 Unit 310 [id number] Other: # Voids 1 2 - Exam No acute distress, oriented 3. Room air saturation is 100%. HEENT examination is grossly unremarkable. Neck supple. Full range of motion. No adenopathy thyromegaly or neck vein distention. Cardiovascular examination reveals regular rhythm rate. S1-S2 normal. No S3 or S4. No discernible murmur noted. Heart rate 86 bpm. Lungs reveal clear breath sounds. Breath sounds are equal bilaterally. No adventitious lung sounds including wheezes rhonchi or crackles. Abdomen soft bowel sounds are heard. No masses or tenderness. Extremities are intact. No cyanosis clubbing or edema. Skin is without rash or lesion. Neurologic examination is brief but nonfocal. - Labs CBC & Chem 7: 02/22/23 04:34 02/21/23 03:26 Labs: Abnormal Lab Results - Last 24 Hours (Table) 02/21/23 02/22/23 Range/Units 12:42 04:34 WBC 1.34 H* (4.50-10.00) X 10*3/uL RBC 2.62 L (4.10-5.20) X 10*6/uL Hgb 8.0 L (12.0-15.0) d/dL Hct 24.9 L (37.2-46.3) % RDW 16.3 H (11.5-14.5) % Plt Count 49 L (140-440) X 10*3/uL MPV 12.8 H (9.5-12.2) FL Neutrophils # 0.71 L (1.80-7.70) X 10*3/uL Lymphocytes # 0.41 L (0.90-5.00) X 10*3/uL Monocytes # 0.18 L (0.20-1.00) X 10*3/uL Eosinophils # 0.02 L (0.04-0.35) X 10*3/uL Immature Plt Fraction 10.2 H (1.1-6.1) % Crossmatch See Detail Microbiology - Last 24 Hours (Table) 02/18/23 09:00 Blood Culture - Preliminary Blood 02/18/23 09:15 Blood Culture - Preliminary Blood Assessment and Plan Plan: Near syncope secondary to nausea, vomiting, diarrhea. C. diff is currently negative. COVID-19 screen positive. Neutropenic sepsis. COVID-19 infection without COVID-19 pneumonia. 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 Most recent chemotherapy on 02/11/2023. Pancytopenia secondary to above, improving Nonsmoker. Plan Clinically the patient is stable Leukopenia is improving The patient has no significant respiratory distress or chest pain Patient is on IV cefepime Cultures are negative Patient has been vaccinated with Covid 192 and this is her second infection Clinically and hemodynamically stable
[2023-02-22] MEDS: SALT AND SODA MOUTHWASH 1,000 ML PO SCH ×3 (16:26→23:02)
[2023-02-22] MEDS: VANCOMYCIN 1,750 MG in SODIUM CHLORIDE 0.9% 500 ML 500 ML IVPB SCH (16:32)
[2023-02-22] MEDS ORDERED: FILGRASTIM-SNDZ 480 MCG/0.8 ML SYRINGE SQ SCH (18:00)
[2023-02-22] MEDS: ACETAMINOPHEN TAB 325 MG TAB PO PRN (18:27)
[2023-02-22] MEDS: OLANZapine 2.5 MG TAB PO SCH (21:09)
--- NOTE | 2023-02-22 22:10 | P.PN ---
Subjective Progress Note Date: 02/21/23 Principal diagnosis: Febrile neutropenia and Covid 19 Patient is a 42-year-old female with a past medical history difficult for breast cancer on chemotherapy last chemo about a week ago before presentation to the hospital presented with nausea vomiting diarrhea lighthea dedness patient was noticed to be febrile and did have a low white count also tested positive for COVID-19 On today's evaluation that is 02/21/2023, patient is afebrile today , she is breathing comfortably on room air, still complaining of nausea no further vomiting though diarrhea has slowed down no cough or sputum production Objective - Vital Signs Vital signs: Vital Signs Temp 98.8 F 02/21/23 19:39 Pulse 85 02/21/23 19:39 Resp 17 02/21/23 19:39 BP 105/67 02/21/23 19:39 Pulse Ox 100 02/21/23 19:39 FiO2 Intake & Output 02/21/23 02/21/23 02/22/23 06:59 18:59 06:59 Intake Total 310 Balance 310 Intake: Blood Product 310 Rc Irr As1 Unit 310 [id number] Other: # Voids 3 1 - Exam Middle-age female lying in bed in no distress Respiratory system unlabored breathing diminished breath sound Abdomen soft no tenderness Exam completed with the help of [employer] - Labs CBC & Chem 7: 02/22/23 04:34 02/21/23 03:26 Labs: Abnormal Lab Results - Last 24 Hours (Table) 02/21/23 02/21/23 02/21/23 Range/Units 03:26 03:26 12:42 WBC 0.88 H* (4.50-10.00) X 10*3/uL RBC 2.22 L (4.10-5.20) X 10*6/uL Hgb 6.9 H* (12.0-15.0) d/dL Hct 21.8 L (37.2-46.3) % MCV 98.2 H (80.0-97.0) FL MCHC 31.7 L (32.0-37.0) d/dL Plt Count 44 L (140-440) X 10*3/uL Neutrophils # 0.34 H* (1.80-7.70) X 10*3/uL Lymphocytes # 0.42 L (0.90-5.00) X 10*3/uL Monocytes # 0.09 L (0.20-1.00) X 10*3/uL Eosinophils # 0.01 L (0.04-0.35) X 10*3/uL Immature Plt Fraction 10.0 H (1.1-6.1) % Carbon Dioxide 15.6 L (21.6-31.8) mmol/L Anion Gap 14.40 H (4.00-12.00) mmol/L BUN 6.4 L (9.0-27.0) mg/dL BUN/Creatinine Ratio 8.00 L (12.00-20.00) Ratio Calcium 8.0 L (8.7-10.3) mg/dL Crossmatch See Detail Microbiology - Last 24 Hours (Table) 02/18/23 09:00 Blood Culture - Preliminary Blood 02/18/23 09:15 Blood Culture - Preliminary Blood Assessment and Plan (1) COVID-19 Current Visit: Yes Status: Acute Code(s): U07.1 - COVID-19 SNOMED Code(s): 762370037 (2) Neutropenic fever Current Visit: Yes Status: Acute Priority: High Code(s): D70.9 - NEUTROPENIA, UNSPECIFIED; R50.81 - FEVER PRESENTING WITH CONDITIONS CLASSIFIED ELSEWHERE SNOMED Code(s): 344101163 Plan: 1patient with febrile neutropenia in this patient with a history of poorly differentiated ductal carcinoma on chemotherapy last chemo about a week ago on 02/11/2023 and did have predominantly GI symptoms she did tested positive for COVID-19 however the patient currently do not have any respiratory symptoms is not hypoxic and chest x-ray was negative, treatment for COVID- will be mostly supportive 2- stool cultures negative and stool for C. difficile negative 3- procalcitonin is 0.44 and blood culture are pending 4-Pt currently treated with vancomycin and cefepime while waiting for the culture to finalize Time with Patient: Less than 30
--- NOTE | 2023-02-22 22:12 | P.PN ---
Subjective Progress Note Date: 02/22/23 Principal diagnosis: Febrile neutropenia and Covid 19 Patient is a 42-year-old female with a past medical history difficult for breast cancer on chemotherapy last chemo about a week ago before presentation to the hospital presented with nausea vomiting diarrhea lighthea dedness patient was noticed to be febrile and did have a low white count also tested positive for COVID-19 On today's evaluation that is 02/22/2023, patient remains to be afebrile, the patient is breathing comfortably on room air, pt did have improvement in nausea no further vomiting , diarrhea has slowed down no cough or sputum production Objective - Vital Signs Vital signs: Vital Signs Temp 98.3 F 02/22/23 14:00 Pulse 77 02/22/23 14:00 Resp 18 02/22/23 14:00 BP 118/77 02/22/23 14:00 Pulse Ox 99 02/22/23 14:00 FiO2 Intake & Output 02/21/23 02/22/23 02/22/23 18:59 06:59 18:59 Intake Total 310 Balance 310 Intake: Blood Product 310 Rc Irr As1 Unit 310 [id number] Other: # Voids 1 2 - Exam Middle-age female lying in bed in no distress Respiratory system unlabored breathing diminished breath sound Abdomen soft no tenderness Extremities-- no edema feet - Labs CBC & Chem 7: 02/22/23 04:34 02/21/23 03:26 Labs: Abnormal Lab Results - Last 24 Hours (Table) 02/21/23 02/22/23 Range/Units 12:42 04:34 WBC 1.34 H* (4.50-10.00) X 10*3/uL RBC 2.62 L (4.10-5.20) X 10*6/uL Hgb 8.0 L (12.0-15.0) d/dL Hct 24.9 L (37.2-46.3) % RDW 16.3 H (11.5-14.5) % Plt Count 49 L (140-440) X 10*3/uL MPV 12.8 H (9.5-12.2) FL Neutrophils # 0.71 L (1.80-7.70) X 10*3/uL Lymphocytes # 0.41 L (0.90-5.00) X 10*3/uL Monocytes # 0.18 L (0.20-1.00) X 10*3/uL Eosinophils # 0.02 L (0.04-0.35) X 10*3/uL Immature Plt Fraction 10.2 H (1.1-6.1) % Crossmatch See Detail Microbiology - Last 24 Hours (Table) 02/18/23 09:00 Blood Culture - Preliminary Blood 02/18/23 09:15 Blood Culture - Preliminary Blood Assessment and Plan (1) COVID-19 Current Visit: Yes Status: Acute Code(s): U07.1 - COVID-19 SNOMED Code(s): 598422541 (2) Neutropenic fever Current Visit: Yes Status: Acute Priority: High Code(s): D70.9 - NEUTROPENIA, UNSPECIFIED; R50.81 - FEVER PRESENTING WITH CONDITIONS CLASSIFIED ELSEWHERE SNOMED Code(s): 739849827 Plan: 1patient with febrile neutropenia in this patient with a history of poorly differentiated ductal carcinoma on chemotherapy last chemo about a week ago on 02/11/2023 and did have predominantly GI symptoms she did tested positive for COVID-19 however the patient currently do not have any respiratory symptoms is not hypoxic and chest x-ray was negative, treatment for COVID- will be mostly supportive 2- stool cultures negative and stool for C. difficile negative 3- procalcitonin is 0.44 and blood culture so far negative , wbc upto 1.3 4-we will dc vancomycin and continue with cefepime Time with Patient: Less than 30
[2023-02-23] MEDS: LORazepam 2 MG/ML INJ IV PRN (02:27)
[2023-02-23] MEDS: ACETAMINOPHEN TAB 325 MG TAB PO PRN (02:36)
[2023-02-23] MEDS: SALT AND SODA MOUTHWASH 1,000 ML PO SCH ×2 (03:57→12:16)
[2023-02-23 08:11] VITALS: TEMP 98.2
[2023-02-23] MEDS: MULTIVITAMINS, THERA 1 EACH TAB PO SCH (08:44)
[2023-02-23] MEDS: MAG HYDROX/AL HYDROX/SIMETH 30 ML, diphenhydrAMINE ELIXIR 75 MG, LIDOCAINE VISCOUS 2% 3... PO SCH ×3 (08:44)
[2023-02-23] MEDS: CEFEPIME 2 GM in SODIUM CHLORIDE 0.9% 100 ML IVPB SCH (08:44)
[2023-02-23] MEDS: ONDANSETRON 4 MG/2 ML VIAL IVP PRN (08:51)
[2023-02-23 08:59] LABS: ALT 21 U/L (8-44); AST 27 U/L (13-35); Albumin 3.3 d/dL (3.8-4.9); Albumin/Globulin Ratio 1.57 Ratio (1.60-3.17); Alkaline Phosphatase 78 U/L (41-126); BUN/Creat Ratio <5.83 Ratio (12.00-20.00); Blood Urea Nitrogen <3.5 mg/dL (9.0-27.0); Calcium 8.3 mg/dL (8.7-10.3); Carbon Dioxide 13.6 mmol/L (21.6-31.8); Chloride 110 mmol/L (96-109); Globulin 2.1 d/dL (1.6-3.3); Glucose 66 mg/dL (70-110); Potassium 3.6 mmol/L (3.5-5.5); Sodium 141 mmol/L (135-145); Total Bilirubin 0.6 mg/dL (0.3-1.2); Total Protein 5.4 d/dL (6.2-8.2)
[2023-02-23 10:31] LABS: Basophils # (A) 0.02 X 10*3/uL (0.00-0.10); Basophils % (A) 0.3 %; Eosinophils # (A) 0.02 X 10*3/uL (0.04-0.35); Eosinophils % (A) 0.3 %; HCT 25.5 % (37.2-46.3); HGB 8.2 d/dL (12.0-15.0); Immature Platelet Fraction 11.4 % (1.1-6.1); Lymphocytes # (A) 0.75 X 10*3/uL (0.90-5.00); Lymphocytes % (A) 11.3 %; MCHC 32.2 d/dL (32.0-37.0); MCV 93.4 FL (80.0-97.0); Mean Platelet Volume 12.9 FL (9.5-12.2); Monocytes # (A) 0.34 X 10*3/uL (0.20-1.00); Monocytes % (A) 5.1 %; NRBC Per 100 WBC 0 X 10*3/uL (0.00-0.01); Neutrophils # (A) 5.35 X 10*3/uL (1.80-7.70); Neutrophils % (A) 80.3 %; Platelet Count 61 X 10*3/uL (140-440); RBC 2.73 X 10*6/uL (4.10-5.20); RDW 15.7 % (11.5-14.5); Toxic Granulation 3+; WBC 6.66 X 10*3/uL (4.50-10.00)
--- NOTE | 2023-02-23 12:20 | P.PN ---
Subjective Progress Note Date: 02/23/23 Principal diagnosis: breast cancer, neutropenic fever At today's visit patient reports overall improvement in symptoms s/p addition of olanzapine and Ativan, but did experience n/v after eating breakfast. Patient afebrile 72 hours, however patient remained neutropenic despite Neulasta on 02/11/23. Blood/stool cultures negative. Granix added for additional WBC support. WBC/ANC significantly improved today, will d/c granix. Objective - Vital Signs Vital signs: Vital Signs Temp 98.2 F 02/23/23 07:43 Pulse 85 02/23/23 07:43 Resp 18 02/23/23 07:43 BP 100/68 02/23/23 07:43 Pulse Ox 99 02/23/23 07:43 FiO2 Intake & Output 02/22/23 02/23/23 02/23/23 18:59 06:59 18:59 Intake Total 240 Balance 240 Intake: Oral 240 Other: # Voids 2 - Constitutional General appearance: Present: no acute distress, obese - EENT Eyes: Present: anicteric sclerae, EOMI ENT: Present: hearing grossly normal - Respiratory Details: breathing even and unlabored - Cardiovascular Details: skin warm and dry - Integumentary Integumentary: Absent: cyanotic, rash - Neurologic Neurologic: Present: CNII-XII intact - Musculoskeletal Musculoskeletal: Present: strength equal bilaterally - Psychiatric Psychiatric: Present: A&O x's 3, appropriate affect, intact judgment & insight - Labs CBC & Chem 7: 02/23/23 05:51 02/23/23 05:51 Labs: Abnormal Lab Results - Last 24 Hours (Table) 02/23/23 02/23/23 Range/Units 05:51 05:51 RBC 2.73 L (4.10-5.20) X 10*6/uL Hgb 8.2 L (12.0-15.0) d/dL Hct 25.5 L (37.2-46.3) % RDW 15.7 H (11.5-14.5) % Plt Count 61 L (140-440) X 10*3/uL MPV 12.9 H (9.5-12.2) FL Lymphocytes # 0.75 L (0.90-5.00) X 10*3/uL Eosinophils # 0.02 L (0.04-0.35) X 10*3/uL Toxic Granulation 3+ A Immature Plt Fraction 11.4 H (1.1-6.1) % Chloride 110 H (96-109) mmol/L Carbon Dioxide 13.6 L (21.6-31.8) mmol/L Anion Gap 17.40 H (4.00-12.00) mmol/L BUN <3.5 L (9.0-27.0) mg/dL BUN/Creatinine Ratio <5.83 L (12.00-20.00) Ratio Glucose 66 L (70-110) mg/dL Calcium 8.3 L (8.7-10.3) mg/dL Total Protein 5.4 L (6.2-8.2) d/dL Albumin 3.3 L (3.8-4.9) d/dL Albumin/Globulin Ratio 1.57 L (1.60-3.17) Ratio Microbiology - Last 24 Hours (Table) 02/20/23 12:30 Stool Culture - Preliminary Stool Assessment and Plan (1) Neutropenic fever Current Visit: Yes Status: Acute Priority: High Code(s): D70.9 - NEUTROPENIA, UNSPECIFIED; R50.81 - FEVER PRESENTING WITH CONDITIONS CLASSIFIED ELSEWHERE SNOMED Code(s): 406753276 (2) Breast cancer, right breast Current Visit: Yes Status: Chronic Priority: High Code(s): C50.911 - MALIGNANT NEOPLASM OF UNSP SITE OF RIGHT FEMALE BREAST SNOMED Code(s): 319939334 (3) Antineoplastic chemotherapy induced pancytopenia Current Visit: Yes Status: Acute Priority: High Code(s): D61.810 - ANTINEOPLASTIC CHEMOTHERAPY INDUCED PANCYTOPENIA; T45.1X5A - ADVERSE EFFECT OF ANTINEOPLASTIC AND IMMUNOSUP DRUGS, INIT SNOMED Code(s): 067210501983734 Plan: #Neutropenic fever, Chemo-induced pancytopenia -Presented with fever and pancytopenia on admission with infectious work-up positive for COVID-19. C. difficile PCR was negative -Blood cultures from admission remain negative to date with chest x-ray negative for acute cardiopulmonary process -Her fevers are likely secondary to COVID-19 secondary to immunocompromise state from AC chemotherapy -Continues with cefepime and vancomycin -Patient afebrile 72 hours, however remained neutropenic despite Neulasta on 02/11. Granix added for additional WBC support to achieve ANC >1000. WBC/ANC significantly improved today, will d/c granix -S/p 1 unit of irradiated packed red blood cells. Hemoglobin improved with appropriate response. 8.2 today. Platelets improved, 61,000 -Will continue to monitor counts daily. Transfuse for hemoglobin less than 7 and/or platelets less than 10,000 and/or bleeding #Chemotherapy-induced nausea/vomiting/diarrhea -Has had significant nausea and vomiting with AC chemotherapy -This could be slightly exacerbated by superimposed COVID-19 infection, but she did have nausea and vomiting with cycle 1 requiring use of Emend with cycle 2 that did not provide significant relief -She continues on IV Zofran and Compazine and patient with minimal to no relief -IV Ativan 0.5 mg every 6 hours as needed ands zyrexa 2.5 nighly added to her antiemetic regimen, with improvement in symptoms. Instructed patient to take anti-emetic 30 minutes prior to eating to help with N/V with eating. -Reports improvement in diarrhea S/P Imodium. #Triple negative breast cancer: -History of triple negative invasive ductal carcinoma of the right breast. PET/CT noted FDG avidity in the right breast along with the right axilla and right retropectoral region with no evidence of distant metastatic disease -She completed 4 cycles of neoadjuvant carboplatin/paclitaxel/pembrolizumab, and has completed 2/4 cycles of AC plus pembrolizumab with neulasta on 02/11/2023. Currently day 11, cycle 2 of treatment -She has 2 additional cycles of AC plus pembrolizumab remaining. We discussed dose reduction with her last 2 cycles and we will discuss this further in clinic *Once patient is able to tolerate oral intake without n/v, and she continues to be afebrile, she is cleared from a hem/onc standpoint for discharge once cleared by IM and other consulted medical specialities attests: I performed H&P and developed impression and plan of care for patient, discussed with dictator. I agree with dictated note, documented as a scribe
[2023-02-23] MEDS: SODIUM CHLORIDE 0.9% 1,000 ML IV SCH (13:56)
--- NOTE | 2023-02-23 14:04 | P.PN ---
Subjective Progress Note Date: 02/23/23 The patient is seen today 02/11/2023 in follow-up on the selective care unit. He is currently awake and alert. Maintaining O2 saturations in the upper 90s on 4 L/m per nasal cannula. He's been afebrile. Hemodynamically stable. Computed tomography scan of the abdomen and pelvis revealed a dilated appendix with gas within the tip. There is some nonspecific surrounding fluid/stranding. Findings could be seen with acute appendicitis. Gas and stool filled dilated colon and rectum without focal transition point suggestive of an colonic ileus. 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 Hepatic cirrhosis with findings suggestive of portal hypertension with trace ascites and splenic collaterals. Right adrenal gland lipid rich adenoma. Nonobstructive bilateral renal calculi. Surgical services are following. Nasogastric tube has been placed. Today's chest x-ray reveals cardiomegaly. Chronic parenchymal changes without new focal airspace opacity, pleural effusion or pneumothorax. Blood cultures revealed no growth. White count 23.9. Hemoglobin 7.5. MCV is 122. Platelet count 73,000. Sodium 136. Potassium 3.1. Bicarb 30. BUN 59. Creatinine 1.74. Glucose 337. He is continued on DuoNeb inhalations, Pulmicort inhalations, prednisone taper. She is on Xifaxan, Zosyn, Levaquin. Lovenox for anticoagulation. The patient is seen today 02/12/2023 in follow-up on the selective care unit. He is awake, alert, oriented. Resting fairly comfortably in bed. Denies any worsening shortness of breath, cough or congestion. Denies any significant abdo pablo pain. Nasogastric tube remains in place. Chest x-ray reveals cardiomegaly. Chronic parenchymal changes without any new focal airspace opacities, pleural effusion or pneumothorax. He is maintaining good O2 saturations in the upper 90s on 2 L/m per nasal cannula. He is afebrile. Hemodynamically stable. White count 19.6. Hemoglobin 7.5. Platelets 94,000. Sodium 146. Potassium 2.9. Bicarb 33. BUN 65. Creatinine 1.94. Glucose 137. He remains on rifaximin and Zosyn. Continued on bronchodilators. Patient is seen today 02/13/2023 in follow-up on the selective care unit. He is resting comfortably in bed. He remains awake, alert, oriented. His is at the bedside. He is having bowel movements. Nasogastric tube remains in place. Blood cultures revealed no growth. Blood sugar 156. He is continued on DuoNeb inhalations. Prednisone taper. Remains on Zosyn. Remains on rifaximin. Anticoagulated with Lovenox. Continued on D5W at 50 MLS per hour. The patient is seen today 02/15/2023 in follow-up on the selective care unit. He remains awake and alert oriented. His is at the bedside. He is resting comfortably in bed. He is having bowel movements. Nasogastric tube has been discontinued. He is tolerating a liquid diet. Denies any abdominal discomfort. No nausea or vomiting. Blood cultures revealed no growth in blood glucose 174. He remains on DuoNeb inhalations, Pulmicort inhalations. Prednisone taper. Antibiotics in the form of Zosyn. Lovenox for anticoagulation. Progress note dated 02/16/2023. The patient is seen today in room 372. The patient apparently will not be discharged today, because his hemoglobin was 7.2, and his sodium was 122. The patient's on room air. The patient is not receiving any IV fluids. Clinically, the patient looks very safe, and could be discharged home from the pulmonary standpoint. White count is 19.8, hemoglobin 7.2, hematocrit 21.4, and platelet count of 72,000. Sodium is 122, potassium 4.1, chlorides 92, CO2 26, BUN 52, and creatinine 2.08. Blood cultures are negative. Progress note dated 02/17/2023. The patient is seen today in room 372. The patient was not discharged yesterday, because of a low hemoglobin of 7.2 and a low sodium of 123. The patient clinically is stable. He is on room air. He is not receiving any IV fluids and he was waiting for his lab results today. He has no new complaints today. Labs, currently pending at the time of this dictation. Blood cultures were negative. Progress note dated 02/18/2023. The patient is seen today in room 372. Sitting in a chair next to his bed. His is in the room with him. Yesterday, the patient received a unit of blood, because his hemoglobin was 6.9. Today, it 7.5. In addition, the patient's sodium today is 123. He is on room air. He's not receiving any IV fluids. His Perry catheter has been removed. He is hoping to be discharged today. White count is 19.9, hemoglobin 7.5, hematocrit 23, and platelet count a 61,000. Sodium 123, potassium 4, chlorides 95, CO2 21, BUN 52, and creatinine 1.81. Bl ood cultures are all negative. Progress note dated 02/19/2023. The patient is seen today in room 258. He was transferred to the intensive care unit, for ongoing hyponatremia. Nephrology wanted the patient to be placed on 3% saline infusion, and for that reason, he was transferred to the ICU. This morning's sodium was 125. 3% saline has been turned off. He is not receiving any additional IV fluids. He is on room air. He denies any abdominal pain. Hemoglobin is 7.6. White count 15.3, hemoglobin 7.6, hematocrit 22.8, and platelet count is 48,000. Sodium 125, potassium 4.2, chlorides 99, CO2 21, BUN 52, and creatinine 1.61. Blood cultures are negative. Chest x-ray shows a lower lobe infiltrate and/or atelectasis. Progress note dated 02/20/2023. The patient is seen today in room 258. The patient had an uneventful night. He is on room air. He is not receiving any IV fluids. This morning's sodium was 126. In our opinion, the patient could be discharged to the general medical floor, or, discharged home. White count 12.4, hemoglobin 7.1, hematocrit 21.9, with a platelet count of 47,000. Sodium this morning is 126, potassium 4.8, chlorides 102, CO2 23, BUN 52, and creatinine 1.55. Progress note dated 02/21/2023. The patient is seen today in room 258. The patient was transferred to the intensive care unit, because of low sodium. He did receive some 3% saline. His most recent sodium is 131. Clinically he is doing well. He has no complaints. He denies any abdominal pain. White count count is 11.1, hemoglobin 7.2, hematocrit 23.8, and a platelet count of 45,000. Sodium 131, potassium 5.3, chlorides 104, CO2 24, BUN 52, creatinine 1.43. His TSH is normal. On today's evaluation of 02/22/2023, the patient is on room air oxygen. She has no specific complaints. She is, comfortable and resting comfortably in bed. No nausea. No vomiting. No diarrhea or abdominal pain. No shortness of breath. The patient remains on IV cefepime and she is also on zarxio regarding ongoing issues with leukopenia. The patient's WBC count was low at 0.4 and currently is up to 1.34 and hemoglobin is at 8 with a platelet count of 49. Noted the patient received a unit of packed RBC during this current admission. The blood cultures still negative for now. The patient is on room air oxygen. The patient is infected with Covid 19. The patient has been infected in the past and this is her second infection. Origin infection was in 2020 and the patient has been vaccinated with 2 doses of Pfizer vaccine. On 02/23/2023, the patient is having some nausea. No respiratory difficulties and the patient remains on room air oxygen. White cell count is improved. Patient remains on IV cefepime. Cultures are all negative. On labs, the debris was noted 6.6 with a hemoglobin of 8.2. BUN is at 3.5 and a creatinine of 0.6. Electrolytes show a component of anion gap metabolic acidosis with a serum bicarb of 13. Objective - Vital Signs Vital signs: Vital Signs Temp 98.2 F 02/23/23 07:43 Pulse 85 02/23/23 07:43 Resp 18 02/23/23 07:43 BP 100/68 02/23/23 07:43 Pulse Ox 99 02/23/23 07:43 FiO2 Intake & Output 02/22/23 02/23/23 02/23/23 18:59 06:59 18:59 Intake Total 240 Balance 240 Intake: Oral 240 Other: # Voids 2 - Exam No acute distress, oriented 3. Room air saturation is 100%. HEENT examination is grossly unremarkable. Neck supple. Full range of motion. No adenopathy thyromegaly or neck vein distention. Cardiovascular examination reveals regular rhythm rate. S1-S2 normal. No S3 or S4. No discernible murmur noted. Heart rate 86 bpm. Lungs reveal clear breath sounds. Breath sounds are equal bilaterally. No adventitious lung sounds including wheezes rhonchi or crackles. Abdomen soft bowel sounds are heard. No masses or tenderness. Extremities are intact. No cyanosis clubbing or edema. Skin is without rash or lesion. Neurologic examination is brief but nonfocal. - Labs CBC & Chem 7: 02/23/23 05:51 02/23/23 05:51 Labs: Abnormal Lab Results - Last 24 Hours (Table) 02/23/23 02/23/23 Range/Units 05:51 05:51 RBC 2.73 L (4.10-5.20) X 10*6/uL Hgb 8.2 L (12.0-15.0) d/dL Hct 25.5 L (37.2-46.3) % RDW 15.7 H (11.5-14.5) % Plt Count 61 L (140-440) X 10*3/uL MPV 12.9 H (9.5-12.2) FL Lymphocytes # 0.75 L (0.90-5.00) X 10*3/uL Eosinophils # 0.02 L (0.04-0.35) X 10*3/uL Toxic Granulation 3+ A Immature Plt Fraction 11.4 H (1.1-6.1) % Chloride 110 H (96-109) mmol/L Carbon Dioxide 13.6 L (21.6-31.8) mmol/L Anion Gap 17.40 H (4.00-12.00) mmol/L BUN <3.5 L (9.0-27.0) mg/dL BUN/Creatinine Ratio <5.83 L (12.00-20.00) Ratio Glucose 66 L (70-110) mg/dL Calcium 8.3 L (8.7-10.3) mg/dL Total Protein 5.4 L (6.2-8.2) d/dL Albumin 3.3 L (3.8-4.9) d/dL Albumin/Globulin Ratio 1.57 L (1.60-3.17) Ratio Microbiology - Last 24 Hours (Table) 02/20/23 12:30 Stool Culture - Preliminary Stool Assessment and Plan Plan: Near syncope secondary to nausea, vomiting, diarrhea. C. diff is currently negative. COVID-19 screen positive. Neutropenic sepsis. COVID-19 infection without COVID-19 pneumonia. 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 Most recent chemotherapy on 02/11/2023. Pancytopenia secondary to above, improving Nonsmoker. Metabolic acidosis of anion gap type, could be related to saline infusion Plan Suggest giving the IV fluids to KVO Respiratory status is stable Monitor metabolic acidosis Clinically the patient is stable Leukopenia is improving, the white cell count is improved The patient has no significant respiratory distress or chest pain Patient is on IV cefepime Cultures are negative Patient has been vaccinated with Covid 192 and this is her second infection Clinically and hemodynamically stable We'll see the patient on as-needed basis
--- NOTE | 2023-02-23 14:39 | P.PN ---
Subjective Progress Note Date: 02/23/23 42year old female presenting to the ER via EMS for evaluation of near syncope. Patient is currently being treated for breast cancer and her last infusion treatment was , 02/11/23. Patient states this morning while getting out of bed she was extremely dizzy and felt like she was going to pass out. She states it took several minutes for her to get her bearings and go to the bathroom where the same dizzy spell occurred again. She states she is extremely nauseous which is normal for her and is on many medications for it. Patient reports she was scheduled for IV fluids today. She denies headaches, visual changes, chest pain, shortness of breath, abdominal pain, or urinary symptoms. In the ER patient was noticed to be febrile with a temperature of 102.9 F patient was tachycardic however the patient was not hypoxic or need for supplemental oxygen patient was noticed to have a white count of 0.6 creatinine was normal liver enzymes are normal urine was negative patient did tested positive for COVID influenza RSV was negative patient did have a chest x-ray that was negative for acute cardiopulmonary process patient did have a history of COVID-19 infection in 2020 and subsequently did receive vaccination for COVID-19 in 2021 and currently do not have a significant respiratory symptom of shortness of breath and cough 02/20/2023 Patient is seen and evaluated and discussed with nursing staff; its by fever last evening; continue to have nausea and vomiting; does report improvement in Vital signs are reviewed and stable with temperature 98.8, pulse 79, respirations 17 and blood pressure of 93/58 patient with febrile neutropenia in this patient with a history of poorly differentiated ductal carcinoma on chemotherapy last chemo about a week ago on 02/11/2023 and did have predominantly GI symptoms she did tested positive for COVID-19 however the patient currently do not have any respiratory symptoms is not hypoxic and chest x-ray was negative, treatment for COVID- will be mostly fallon pportive - stool cultures pending and stool for C. difficile negative - procalcitonin is 0.44 and blood culture are pending -Pt to continue empiric vancomycin and cefepime while waiting for the culture to finalize 02/21/2023 Patient seen and evaluated and discussed with nursing staff; has been refusing IV antibiotics due to episodes of nausea and vomiting; one episode of elevated temperature yesterday with T-max of 102.2 Patient is currently on IV antibiotics in form of cefepime and vancomycin for neutropenic fever; ID has not changed recommendations for antibiotic therapy yet; patient wants antibiotics discontinued and wants to be monitored off antibiotics -- Blood work reveals WBC of 0.88 with ANC of 0.34, hemoglobin of 69 and platelet count of 44; hematology on board and recommending transfusion with 1 unit packed RBCs; monitor CBC closely; -She received Neulasta with cycle 2 of AC on 02/11/2023 and is currently day 11 -- Patient has chemotherapy-induced nausea and vomiting superimposed by COVID-19 infection; currently on IV Zofran and Compazine; oncology recommending to add IV Ativan 0.5 mg every 6 hours as needed to her antiemetic regimen; patient is recommended Zyprexa 2.5 mg daily at bedtime 02/22. Patient seen and examined. Patient has been afebrile. Still having nausea and very poor appetite. 02/23. Patient seen and examined. Level done this morning showed sodium 141, potassium 3.6, BUN 3.5, creatinine 0.6. Patient continues to be afebrile. Discussed with ID, they recommended changing cefepime to oral Ceftin. If patient keeps her food down and has no further nausea, patient can be discharged REVIEW OF SYSTEMS: CONSTITUTIONAL: No fever, no malaise,. CARDIOVASCULAR: No chest pain, no palpitations, no syncope. PULMONARY: No shortness of breath, no cough, GASTROINTESTINAL: No diarrhea, no abdominal pain. NEUROLOGICAL: No headaches, no weakness, PHYSICAL EXAMINATION: GENERAL: The patient is alert and oriented x3, not in any acute distress. Well developed, well nourished. HEENT: Pupils are round and equally reacting to light. EOMI. No scleral icterus. No conjunctival pallor. Normocephalic, atraumatic. No pharyngeal erythema. No thyromegaly. CARDIOVASCULAR: S1 and S2 present. No murmurs, rubs, or gallops. PULMONARY: Chest is clear to auscultation, no wheezing or crackles. ABDOMEN: Soft, nontender, nondistended, normoactive bowel sounds. No palpable organomegaly. MUSCULOSKELETAL: No joint swelling or deformity. EXTREMITIES: No cyanosis, clubbing, or pedal edema. NEUROLOGICAL: Gross neurological examination did not reveal any focal deficits. SKIN: No rashes. Assessment and plan Near syncope dehydration caused by vomiting and diarrhea COVID-19 infection Pancytopenia; related to chemotherapy; last chemotherapy session on 02/11/2023 History of invasive poorly differentiated ductal carcinoma right breast; most recent chemotherapy on 02/11/2023 Febrile neutropenia Acute onset diarrhea; Monitor vital signs Monitor CBC Monitor CMP Continue telemetry monitoring Follow-up on blood cultures Continue IV cefepime can be switched to oral Ceftin at discharge, vancomycin discontinued by ID ID on board Hematology oncology following Labs and medication were reviewed.. Continue same treatment. Continue with symptomatic treatment. Monitor labs and vitals. DVT and GI prophylaxis. Further recommendations as per clinical course of the patient Objective - Vital Signs Vital signs: Vital Signs Temp 98.2 F 02/23/23 07:43 Pulse 85 02/23/23 07:43 Resp 18 02/23/23 07:43 BP 100/68 02/23/23 07:43 Pulse Ox 99 02/23/23 07:43 FiO2 Intake & Output 02/22/23 02/23/23 02/23/23 18:59 06:59 18:59 Intake Total 240 Balance 240 Intake: Oral 240 Other: # Voids 2 - Labs CBC & Chem 7: 02/23/23 05:51 02/23/23 05:51 Labs: Abnormal Lab Results - Last 24 Hours (Table) 02/22/23 02/23/23 Range/Units 04:34 05:51 WBC 1.34 H* (4.50-10.00) X 10*3/uL RBC 2.62 L (4.10-5.20) X 10*6/uL Hgb 8.0 L (12.0-15.0) d/dL Hct 24.9 L (37.2-46.3) % RDW 16.3 H (11.5-14.5) % Plt Count 49 L (140-440) X 10*3/uL MPV 12.8 H (9.5-12.2) FL Neutrophils # 0.71 L (1.80-7.70) X 10*3/uL Lymphocytes # 0.41 L (0.90-5.00) X 10*3/uL Monocytes # 0.18 L (0.20-1.00) X 10*3/uL Eosinophils # 0.02 L (0.04-0.35) X 10*3/uL Immature Plt Fraction 10.2 H (1.1-6.1) % Chloride 110 H (96-109) mmol/L Carbon Dioxide 13.6 L (21.6-31.8) mmol/L Anion Gap 17.40 H (4.00-12.00) mmol/L BUN <3.5 L (9.0-27.0) mg/dL BUN/Creatinine Ratio <5.83 L (12.00-20.00) Ratio Glucose 66 L (70-110) mg/dL Calcium 8.3 L (8.7-10.3) mg/dL Total Protein 5.4 L (6.2-8.2) d/dL Albumin 3.3 L (3.8-4.9) d/dL Albumin/Globulin Ratio 1.57 L (1.60-3.17) Ratio Microbiology - Last 24 Hours (Table) 02/20/23 12:30 Stool Culture - Preliminary Stool
[2023-02-23 16:04] VITALS: BP 100/67; PULSE 84; RESP 17
[2023-02-24] MEDS ORDERED: ERGOCALCIFEROL 1,250 MCG (50,000 IU) CAPSULE PO SCH (09:00)
== END 2023-02-23 16:15 | disposition home or self-care (01) | DRG 808 ==
LOC: EC 08:42 → 4SSUR 15:48
PROVIDERS: ADMIT Internal Medicine; ATTEND Internal Medicine
PROC: 30233N1 Transfusion of Nonautologous Red Blood Cells into Peripheral Vein, Percutaneous Approach (ICD-10-PCS; principal; 2023-02-21)
DX: D70.9 Neutropenia, unspecified (principal); U07.1 COVID-19; K76.6 Portal hypertension; R65.10 Systemic inflammatory response syndrome (SIRS) of non-infectious origin without acute organ dysfunction; E87.1 Hypo-osmolality and hyponatremia; K56.7 Ileus, unspecified; E87.20 Acidosis, unspecified; D61.810 Antineoplastic chemotherapy induced pancytopenia; C50.911 Malignant neoplasm of unspecified site of right female breast; K74.60 Unspecified cirrhosis of liver; I71.40 Abdominal aortic aneurysm, without rupture, unspecified; R50.81 Fever presenting with conditions classified elsewhere; I11.9 Hypertensive heart disease without heart failure; R19.7 Diarrhea, unspecified; E86.0 Dehydration; T45.1X5A Adverse effect of antineoplastic and immunosuppressive drugs, initial encounter; N20.0 Calculus of kidney; Z17.1 Estrogen receptor negative status [ER-]; Z79.899 Other long term (current) drug therapy; Z86.16 Personal history of COVID-19
CPT/HCPCS: 36415; 71046; 80048; 80053; 80202; 81001; 83605; 83735; 84145; 84484; 85025; 86850; 86900; 86901; 86920; 87040; 87045; 87046; 87324; 87636; 93005; 96361; 96365; 96366; 96375; 99285

== ENCOUNTER 2023-03-26 11:37 | Inpatient (IN) | payer BC ==
[2023-03-26] MEDS ORDERED: ACETAMINOPHEN TAB 500 MG TAB PO STA (11:57)
[2023-03-26] MEDS ORDERED: SODIUM CHLORIDE 0.9% 1,000 ML IV STA (12:13)
--- NOTE | 2023-03-26 12:18 | ED ---
General Adult HPI - General Chief complaint: Fever Stated complaint: Fever,Low BP Time Seen by Provider: 03/26/23 12:04 Source: patient Mode of arrival: ambulatory Limitations: no limitations - History of Present Illness Initial comments: Dictation was produced using [employer] dictation software. please excuse any grammatical, word or spelling errors. Chief Complaint: 43-year-old female presents emergency department for fever History of Present Illness: Is 43-year-old female she presents emergency department for fever and low blood pressure. Patient was scheduled for outpatient infusion for blood transfusion and IV fluids. She states that this was to treat her low blood pressure and anemia. She went to her appointment today and was found that patient was febrile and had low blood pressure she was told to come to the emergency department for further care. Patient reports that over the last 5 days she's been feeling weak. She gets hemotherapy infusions through a left chest port every 3 weeks to treat her breast cancer. She does not know what medication she gets infused. She has been diagnosed with breast cancer since September. She works closely with Dr. Johnson who leads her cancer care. Patient denies any localizing symptoms. Denies any sore throat cough runny nose, abdominal pain, diarrhea, rash, ear pain or cough. Last chemotherapy was 6 days ago. The ROS documented in this emergency department record has been reviewed and confirmed by me. Those systems with pertinent positive or negative responses have been documented in the HPI. All other systems are other negative and/or noncontributory. - Related Data Home Medications Medication Instructions Recorded Confirmed Ergocalciferol [Vitamin D2 (1250 1,250 mcg PO WE 10/15/22 02/18/23 Mcg = 91769 Iu)] Multivitamins, Thera [Multivitamin 1 tab PO DAILY 10/15/22 02/18/23 (formulary)] OLANZapine [ZyPREXA] 2.5 mg PO DIRECTED 02/18/23 02/18/23 Ondansetron Odt [Zofran ODT] 8 mg PO Q8HR PRN 02/18/23 02/18/23 Ondansetron [Zofran] 4 - 8 mg PO Q4H PRN 02/18/23 02/18/23 Prochlorperazine [Compazine] 10 mg PO Q6H PRN 02/18/23 02/18/23 Triamcinolone 0.1% Cream [Kenalog 1 applicatio TOPICAL TID PRN 02/18/23 02/18/23 0.1% Cream] Previous Rx's Medication Instructions Recorded Loperamide [Imodium] 2 mg PO QID PRN #20 cap 02/23/23 cefUROXime axetiL [Cefuroxime] 500 mg PO BID 5 Days #10 tab 02/23/23 Allergies Allergy/AdvReac Type Severity Reaction Status Date / Time No Known Allergies Allergy Verified 03/26/23 11:43 Review of Systems ROS Statement: Those systems with pertinent positive or pertinent negative responses have been documented in the HPI. ROS Other: All systems not noted in ROS Statement are negative. Past Medical History Past Medical History: Cancer Additional Past Medical History / Comment(s): new dx. breast cancer History of Any Multi-Drug Resistant Organisms: None Reported Past Surgical History: Breast Surgery, Tonsillectomy Additional Past Surgical History / Comment(s): recent breast bx. Past Anesthesia/Blood Transfusion Reactions: No Reported Reaction Past Psychological History: No Psychological Hx Reported Smoking Status: Never smoker Past Alcohol Use History: Occasional Past Drug Use History: Marijuana - Past Family History Father Family Medical History: Cancer Additional Family Medical History / Comment(s): brain, paternal grandmother breast cancer General Exam - General Exam Comments Initial Comments: PHYSICAL EXAM: General Impression: Alert and oriented x3, not in acute distress HEENT: Normocephalic atraumatic, extra-ocular movements intact, pupils equal and reactive to light bilaterally, mucous membranes moist. Cardiovascular: Heart regular rate and rhythm Chest: Able to complete full sentences, no retractions, no tachypnea Abdomen: abdomen soft, non-tender, non-distended, no organomegaly Musculoskeletal: Pulses present and equal in all extremities, no peripheral edema Motor: no focal deficits noted Neurological: CN II-XII grossly intact, no focal motor or sensory deficits noted Skin: Intact with no visualized rashes Psych: Normal affect and mood Limitations: no limitations Course Vital Signs 03/26/23 03/26/23 03/26/23 11:39 11:54 12:39 Temperature 103.2 F H 103.6 F H Pulse Rate 119 H 110 H 101 H Respiratory 22 16 20 Rate Blood Pressure 80/56 91/54 O2 Sat by Pulse 98 100 100 Oximetry 03/26/23 13:25 Temperature 103.2 F H Pulse Rate Respiratory Rate Blood Pressure O2 Sat by Pulse Oximetry - Reevaluation(s) Reevaluation #1: 03/26/23 14:05 Case is discussed with Dr. Maya over the phone he signed the clinic yesterday she had similar blood pressure. He did check on some other labs reports that patient taking chemotherapy along with immunotherapy. He did test the patient's thyroid. He also is worried that patient had low cortisol but normal thyroid function.. Did request patient be started on stress dose steroids. EKG Findings - EKG Comments: EKG Findings:: My EKG interpretation: Ventricular rate 109, sinus tachycardia,. Interval 120, QRS 90, QTC 425. No OH prolongation, no QTC prolongation, no ST or T-wave changes noted. Overall, this EKG is unremarkable Procedures - Sepsis Sepsis Focused Exam #1 Time Sepsis Criteria Met: 14:29 Sepsis Focused Exam Date: 03/26/23 Sepsis Focused Exam Time: 14:29 Sepsis Focused Exam Complete: Yes Vital Signs & RN Notes Reviewed: Yes Capillary Refill: < 2 Seconds: Fingers, Toes Peripheral Pulses: Normal: Radial (R), Radial (L), Posterior Tibialis (R), Posterior Tibialis (L), Dorsalis Pedis (R), Dorsalis Pedis (L) Skin Color: Normal for Patient Respiratory Exam: normal lung sounds Cardiovascular Exam: regular rate Medical Decision Making - Medical Decision Making Was pt. sent in by a medical professional or institution (, PA, ECHOCARDIOGRAPHY RADIOLOGY TECHNOLOGIST, urgent care, hospital, or group home...) When possible be specific @ -Sent in from infusion center Did you speak to anyone other than the patient for history (EMS, parent, family, police, friend...)? What history was obtained from this source @ -Spoke with Dr. Johnson and at the bedside as mentioned above Did you review nursing and triage notes (agree or disagree)? Why? @ -I reviewed and agree with nursing and triage notes Were old charts reviewed (outside hosp., previous admission, EMS record, old EKG, old radiological studies, urgent care reports/EKG's, group home records)? Report findings @ -No old charts were reviewed Differential Diagnosis (chest pain, altered mental status, abdominal pain women, abdominal pain men, vaginal bleeding, musculoskeletal, weakness, fever, dyspnea, syncope, headache, dizziness, GI bleed, back pain, seizure, CVA, palpatations, mental health)? @ -Differential Fever: Pneumonia, viral URI, endocarditis, myocarditis, pericarditis, otitis, sinusitis, peritonsillar Abscess, retropharyngeal Abscess, epiglottitis, peritonitis, appendicitis, Chika cystitis, diverticulitis, hepatitis, colitis, UTI, PID, TOA, pyelonephritis, prostatitis, epididymitis, meningitis, encephalitis, pulmonary embolism, CVA, thyroid storm, pancreatitis, adrenal crisis, cavernous sinus thrombosis, this is not meant to be an all-inclusive list. EKG interpreted by me (3pts min.). @ -See above X-rays interpreted by me (1pt min.). @ -Chest x-ray shows no acute processes CT interpreted by me (1pt min.). @ -None done U/S interpreted by me (1pt. min.). @ -None done What testing was considered but not performed or refused? (CT, X-rays, U/S, lab s)? Why? @ -None What meds were considered but not given or refused? Why? @ -None Did you discuss the management of the patient with other professionals (professionals i.e. , PA, ECHOCARDIOGRAPHY RADIOLOGY TECHNOLOGIST, lab, RT, psych nurse, psychotherapist social worker, curve saw operator, teacher, mechanical engineering officer, piano case and bench assembler)? Give summary @ -Case discussed with Dr. Johnson who recommended a stress dose steroid administration. Case also discussed with Dr. Brady for ICU admission. Was smoking cessation discussed for >3mins.? @ -No Was critical care preformed (if so, how long)? @ -Yes, 73 minutes Were there social determinants of health that impacted care today? How? (Homelessness, low income, unemployed, alcoholism, drug addiction, transportation, low edu. Level, literacy, decrease access to med. care, penitentiary, rehab)? @ -No Was there de-escalation of care discussed even if they declined (Discuss DNR or withdrawal of care, Hospice)? DNR status @ -No What co-morbidities impacted this encounter? (DM, HTN, Smoking, COPD, CAD, Cancer, CVA, ARF, Chemo, Hep., AIDS, mental health diagnosis, sleep apnea, morbid obesity)? @ -None Was patient admitted / discharged? Hospital course, mention meds given and route, prescriptions, significant lab abnormalities, going to OR and other pertinent info. @ -3-year-old female presents emergency Department with fever. She is currently undergoing chemo and immunotherapy treatment for couple negative breast cancer. Vital signs upon arrival shows blood pressure of 80/56. Patient given IV fluids with improvement to 91/54. Patient Tylenol so they used to be afebrile. Case discussed with oncologist who requests patient be treated with stress dose steroids. Patient be admitted to ICU for medical monitoring in the setting of low blood pressure. Undiagnosed new problem with uncertain prognosis? @ -No Drug Therapy requiring intensive monitoring for toxicity (Heparin, Nitro, Insulin, Cardizem)? @ -No Were any procedures done? @ -No Diagnosis/symptom? Acute, or Chronic, or Acute on Chronic? Uncomplicated (without systemic symptoms) or Complicated (systemic symptoms)? @ -SIRS Side effects of treatment? @ -No Exacerbation, Progression, or Severe Exacerbation? @ -No Poses a threat to life or bodily function? How? (Chest pain, USA, MS, pneumonia, PE, COPD, DKA, ARF, appy, cholecystitis, CVA, Diverticulitis, Homicidal, Suicidal, threat to staff... and all critical care pts) @ -yes - Lab Data Result diagrams: 03/26/23 12:16 03/26/23 12:16 Lab Results 03/26/23 03/26/23 03/26/23 Range/Units 12:16 12:16 12:16 WBC 0.6 L* (3.8-10.6) k/uL RBC 2.80 L (3.80-5.40) m/uL Hgb 8.7 L D (11.4-16.0) gm/dL Hct 24.9 L (34.0-46.0) % MCV 88.9 D (80.0-100.0) fL MCH 31.2 (25.0-35.0) pg MCHC 35.1 (31.0-37.0) g/dL RDW 13.9 (11.5-15.5) % Plt Count 11 L* D (150-450) k/uL MPV 11.4 Neutrophils % Not Reportable Lymphocytes % Not Reportable Monocytes % Not Reportable Eosinophils % Not Reportable Basophils % Not Reportable Neutrophils # Not Reportable Lymphocytes # Not Reportable Monocytes # Not Reportable Eosinophils # Not Reportable Basophils # Not Reportable Differential Comment Manual Slide Review Performed ESR 60 H (0-20) mm/hr PT 11.2 (9.0-12.0) sec INR 1.1 (<1.2) APTT 26.3 (22.0-30.0) sec Sodium 133 L (137-145) mmol/L Potassium 3.6 (3.5-5.1) mmol/L Chloride 98 (98-107) mmol/L Carbon Dioxide 23 (22-30) mmol/L Anion Gap 12 mmol/L BUN 12 (7-17) mg/dL Creatinine 0.87 (0.52-1.04) mg/dL Est GFR (CKD-EPI)AfAm >90 (>60 ml/min/1.73 sqM) Est GFR (CKD-EPI)NonAf 82 (>60 ml/min/1.73 sqM) Glucose 114 H (74-99) mg/dL Plasma Lactic Acid Varun (0.7-2.0) mmol/L Calcium 8.5 (8.4-10.2) mg/dL Total Bilirubin 1.8 H (0.2-1.3) mg/dL AST 46 H (14-36) U/L ALT 33 (4-34) U/L Alkaline Phosphatase 86 (38-126) U/L Troponin I (0.000-0.034) ng/mL C-Reactive Protein 8.4 H (<1.0) mg/dL Total Protein 6.6 (6.3-8.2) g/dL Albumin 3.7 (3.5-5.0) g/dL Coronavirus (PCR) (Not Detectd) 03/26/23 03/26/23 03/26/23 Range/Units 12:16 12:16 12:16 WBC (3.8-10.6) k/uL RBC (3.80-5.40) m/uL Hgb (11.4-16.0) gm/dL Hct (34.0-46.0) % MCV (80.0-100.0) fL MCH (25.0-35.0) pg MCHC (31.0-37.0) g/dL RDW (11.5-15.5) % Plt Count (150-450) k/uL MPV Neutrophils % Lymphocytes % Monocytes % Eosinophils % Basophils % Neutrophils # Lymphocytes # Monocytes # Eosinophils # Basophils # Differential Comment Manual Slide Review ESR (0-20) mm/hr PT (9.0-12.0) sec INR (<1.2) APTT (22.0-30.0) sec Sodium (137-145) mmol/L Potassium (3.5-5.1) mmol/L Chloride (98-107) mmol/L Carbon Dioxide (22-30) mmol/L Anion Gap mmol/L BUN (7-17) mg/dL Creatinine (0.52-1.04) mg/dL Est GFR (CKD-EPI)AfAm (>60 ml/min/1.73 sqM) Est GFR (CKD-EPI)NonAf (>60 ml/min/1.73 sqM) Glucose (74-99) mg/dL Plasma Lactic Acid Varun 1.5 (0.7-2.0) mmol/L Calcium (8.4-10.2) mg/dL Total Bilirubin (0.2-1.3) mg/dL AST (14-36) U/L ALT (4-34) U/L Alkaline Phosphatase (38-126) U/L Troponin I 0.024 (0.000-0.034) ng/mL C-Reactive Protein (<1.0) mg/dL Total Protein (6.3-8.2) g/dL Albumin (3.5-5.0) g/dL Coronavirus (PCR) Not Detected (Not Detectd) Disposition Clinical Impression: SIRS (systemic inflammatory response syndrome) Disposition: ADMITTED IP TO THIS [facility] Condition: Critical Referrals: Yonas Dalal III, MD [Primary Care Provider] - 1-2 days Decision Time: 14:29
[2023-03-26 12:56] LABS: HCT 24.9 % (34.0-46.0); INR 1.1 (<1.2); MCH 31.2 pg (25.0-35.0); MCHC 35.1 g/dL (31.0-37.0); MCV 88.9 fL (80.0-100.0); Mean Platelet Volume 11.4; Partial Thromboplastin Time 26.3 sec (22.0-30.0); Prothrombin Time 11.2 sec (9.0-12.0); RDW 13.9 % (11.5-15.5)
--- NOTE | 2023-03-26 13:00 | XR ---
EXAMINATION TYPE: XR chest 1V portable DATE OF EXAM: 03/26/2023 COMPARISON: 02/18/2023 HISTORY: Chest pain TECHNIQUE: Single frontal view of the chest is obtained. FINDINGS: There is no focal air space opacity, pleural effusion, or pneumothorax seen. Left-sided MediPort cath eter is noted unchanged in position. The cardiac silhouette size is within normal limits. The osseous structures are intact. IMPRESSION: 1. No acute process.
[2023-03-26] MEDS ORDERED: VANCOMYCIN IV PER PHARMACY 1 EACH MISC MISCELLANE PRN (13:02)
[2023-03-26 13:04] LABS: ALT 33 U/L (4-34); African American GFR (CKD) >90 (>60 ml/min/1.73 sqM); Albumin 3.7 g/dL (3.5-5.0); Anion Gap 12 mmol/L; Blood Urea Nitrogen 12 mg/dL (7-17); C Reactive Protein 8.4 mg/dL (<1.0); Calcium 8.5 mg/dL (8.4-10.2); Carbon Dioxide 23 mmol/L (22-30); Chloride 98 mmol/L (98-107); Glucose 114 mg/dL (74-99); Non-African American GFR(CKD) 82 (>60 ml/min/1.73 sqM); Sodium 133 mmol/L (137-145); Total Bilirubin 1.8 mg/dL (0.2-1.3); Total Protein 6.6 g/dL (6.3-8.2)
[2023-03-26] MEDS ORDERED: SODIUM CHLORIDE 0.9% 1,250 ML IV STA (13:04)
[2023-03-26 13:05] LABS: AST 46 U/L (14-36); Alkaline Phosphatase 86 U/L (38-126); Potassium 3.6 mmol/L (3.5-5.1)
[2023-03-26] MEDS ORDERED: VANCOMYCIN 1,750 MG in SODIUM CHLORIDE 0.9% 500 ML 500 ML IVPB STA (13:15)
[2023-03-26 13:41] LABS: HGB 8.7 gm/dL (11.4-16.0); WBC 0.6 k/uL (3.8-10.6)
[2023-03-26 13:42] LABS: Platelet Count 11 k/uL (150-450)
[2023-03-26 14:00] LABS: Erythrocyte Sedimentation Rate 60 mm/hr (0-20)
[2023-03-26] MEDS ORDERED: HYDROCORTISONE SUCCINATE 100 MG/2 ML VIAL IV STA (14:01)
[2023-03-26] MEDS ORDERED: NALOXONE 0.4 MG/ML 1 ML VIAL IV PRN (14:23)
[2023-03-26] MEDS ORDERED: ACETAMINOPHEN TAB 325 MG TAB PO PRN (14:23)
[2023-03-26] MEDS: SODIUM CHLORIDE 0.9% 1,000 ML IV SCH (14:45)
[2023-03-26 15:35] LABS: Glucose,Whole Blood 103 mg/dL (70-110)
[2023-03-26] MEDS ORDERED: ONDANSETRON 4 MG/2 ML VIAL IVP PRN (16:15)
[2023-03-26 16:23] LABS: Appearance,Urine Cloudy (Clear); Bacteria,Urine Rare /hpf; Bilirubin,Urine Negative (Negative); Blood,Urine Negative (Negative); Color,Urine Light Red; Glucose,Urine (UA) Negative (Negative); Ketones,Urine 1+ (Negative); Leukocyte Esterase,Urine Negative (Negative); Mucus,Urine Moderate /hpf; Nitrite,Urine Negative (Negative); PH, Urine 5.5 (5.0-8.0); Protein,Urine Trace (Negative); RBC,Urine 3 /hpf (0-5); Specific Gravity,Urine 1.014 (1.001-1.035); Squamous Epithelial Cell,Urine 8 /hpf (0-4); Urobilinogen,Urine <2.0 mg/dL (<2.0); WBC,Urine 7 /hpf (0-5)
[2023-03-26] MEDS: PIPERACILLIN-TAZOBACTAM 3.375 GM in SODIUM CHLORIDE 0.9% 100 ML IVPB SCH (16:32)
[2023-03-26] MEDS: PANTOPRAZOLE 40 MG TABLET PO SCH (18:36)
--- NOTE | 2023-03-26 21:06 | P.CONS ---
History of Present Illness - Reason for Consult Consult date: 03/26/23 Triple negative breast cancer - Chief Complaint Dizziness and lightheadedness - History of Present Illness Ms. Jones is a 43-year-old woman with a past medical history significant for stage IIIA triple negative breast cancer of the right breast currently undergoing neoadjuvant chemoimmunotherapy and most recently completed cycle 3 of Adriamycin/cyclophosphamide/pembrolizumab on 03/18/2023 who presents with fever and dizziness. Following cycle 2 of treatment on 02/11/2023, she had neutropenic fever secondary to COVID-19 along with nausea and vomiting. She eventually had improvement in nausea with Ativan and was subsequently discharged. She had persistent neutropenia requiring 3 days of Neupogen. She initiated cycle 3 of treatment with 20% reduction in Adriamycin and cyclophosphamide. She was seen in clinic on 03/25/2023 with significant dizziness and lightheadedness. Labs at that time were notable for WBC 0.5 (ANC 32), hemoglobin 8.4, platelets 15. She received 1 L bolus of normal saline and had improvement in dizziness and lightheadedness. Additional labs obtained following yesterday's visit were notable for normal thyroid profile and low cortisol of 0.3. She presented to clinic today for additional fluids when she was found to be febrile and hypotensive to systolic in the 70s. She was recommended to present to the ED for additional management. In the ED, she had Tmax 103.6 F with blood pressure 80/56 and heart rate 119. Chest x-ray revealed no acute process. EKG revealed sinus tachycardia. Labs revealed WBC 0.6, hemoglobin 8.7, platelets 11. CMP noted total bilirubin 1.8 with no other acute metabolic abnormalities. Urinalysis revealed negative nitrate and leukocyte esterase and COVID-19 PCR was negative. She was given a total of 2.25 L normal saline bolus along with vancomycin and Zosyn. Upon discussion with the ED, she was given bolus hydrocortisone dose of 100 mg IV. Currently, she notes persistent fatigue with occasional lightheadedness/dizz iness. She does have persistent nausea without vomiting. She initially had constipation following her last cycle and took stool softener, which precipitated watery diarrhea. Review of Systems 14 point review of systems was conducted with pertinent positives and negatives as noted per HPI Past Medical History Past Medical History: Cancer Additional Past Medical History / Comment(s): new dx. breast cancer History of Any Multi-Drug Resistant Organisms: None Reported Past Surgical History: Breast Surgery, Tonsillectomy Additional Past Surgical History / Comment(s): recent breast bx. Past Anesthesia/Blood Transfusion Reactions: No Reported Reaction Past Psychological History: No Psychological Hx Reported Smoking Status: Never smoker Past Alcohol Use History: Occasional Past Drug Use History: Marijuana - Past Family History Father Family Medical History: Cancer Additional Family Medical History / Comment(s): brain, paternal grandmother breast cancer Medications and Allergies Home Medications Medication Instructions Recorded Confirmed Type Ergocalciferol [Vitamin D2 (1250 1,250 mcg PO WE 10/15/22 03/26/23 History Mcg = 16677 Iu)] Multivitamins, Thera [Multivitamin 1 tab PO DAILY 10/15/22 03/26/23 History (formulary)] Prochlorperazine [Compazine] 10 mg PO Q6H PRN 02/18/23 03/26/23 History Triamcinolone 0.1% Cream [Kenalog 1 applic TOPICAL TID PRN 02/18/23 03/26/23 History 0.1% Cream] Loperamide [Imodium] 2 mg PO QID PRN #20 cap 02/23/23 03/26/23 Rx OLANZapine [ZyPREXA] 5 mg PO HS 03/26/23 03/26/23 History ondansetron HCL [Zofran] 8 mg PO Q8H PRN 03/26/23 03/26/23 History Allergies Allergy/AdvReac Type Severity Reaction Status Date / Time No Known Allergies Allergy Verified 03/26/23 14:38 Physical Exam Vitals: Vital Signs Temp Pulse Pulse Resp BP BP Pulse Ox 03/26/23 20:00 99.1 F 81 21 88/49 97 03/26/23 19:00 84 11 L 88/51 96 03/26/23 18:00 86 12 88/51 98 03/26/23 17:00 89 16 84/48 03/26/23 16:00 93 13 100/55 97 03/26/23 15:30 100.1 F H 97 16 100/55 99 03/26/23 15:15 101.5 F H 96 16 80/44 99 03/26/23 14:30 101.7 F H 94 16 75/27 96 03/26/23 13:25 103.2 F H 03/26/23 12:39 103.6 F H 101 H 20 91/54 100 03/26/23 11:54 110 H 16 80/56 100 03/26/23 11:39 103.2 F H 119 H 22 98 Intake and Output 03/26/23 03/26/23 03/26/23 06:59 14:59 22:59 Intake Total 1380 Output Total 700 Balance 680 Intake: IV 1380 Piperacillin-Tazobactam 3 100 .375 gm In Sodium Chloride 0.9% 100 ml @ 25 mls/hr IVPB Q8HR REPLACED BY [facility] Rx# :[id number] Sodium Chloride 0.9% 1, 780 000 ml @ 130 mls/hr IV . Q7H42M REPLACED BY [facility] Rx#:[id number] Vancomycin 1,750 mg In 500 Sodium Chloride 0.9% 500 ml 500 ml @ 167 mls/hr IVPB ONCE STA Rx#: [id number] Output: Urine 700 Other: Weight 108.862 kg - Constitutional Fatigued appearing General appearance: cooperative, no acute distress - Respiratory Respiratory: bilateral: CTA - Cardiovascular Rhythm: regular - Gastrointestinal General gastrointestinal: no distended, soft, no tenderness - Integumentary Port site is clean/dry/intact with no erythema or phlebitis Integumentary: pale, no rash - Neurologic Neurologic: CNII-XII intact Results CBC & Chem 7: 03/26/23 12:16 03/26/23 12:16 Labs: Abnormal Lab Results - Last 24 Hours (Table) 03/26/23 03/26/23 03/26/23 Range/Units 12:16 12:16 12:16 WBC 0.6 L* (3.8-10.6) k/uL RBC 2.80 L (3.80-5.40) m/uL Hgb 8.7 L D (11.4-16.0) gm/dL Hct 24.9 L (34.0-46.0) % Plt Count 11 L* D (150-450) k/uL ESR 60 H (0-20) mm/hr Sodium 133 L (137-145) mmol/L Glucose 114 H (74-99) mg/dL Total Bilirubin 1.8 H (0.2-1.3) mg/dL AST 46 H (14-36) U/L C-Reactive Protein 8.4 H (<1.0) mg/dL Urine Appearance Cloudy H (Clear) Urine Protein Trace H (Negative) Urine Ketones 1+ H (Negative) Urine WBC 7 H (0-5) /hpf Ur Squamous Epith Cells 8 H (0-4) /hpf Urine Bacteria Rare H (None) /hpf Urine Mucus Moderate H (None) /hpf Crossmatch 03/26/23 Range/Units 18:02 WBC (3.8-10.6) k/uL RBC (3.80-5.40) m/uL Hgb (11.4-16.0) gm/dL Hct (34.0-46.0) % Plt Count (150-450) k/uL ESR (0-20) mm/hr Sodium (137-145) mmol/L Glucose (74-99) mg/dL Total Bilirubin (0.2-1.3) mg/dL AST (14-36) U/L C-Reactive Protein (<1.0) mg/dL Urine Appearance (Clear) Urine Protein (Negative) Urine Ketones (Negative) Urine WBC (0-5) /hpf Ur Squamous Epith Cells (0-4) /hpf Urine Bacteria (None) /hpf Urine Mucus (None) /hpf Crossmatch See Detail Chest x-ray: report reviewed, image reviewed Assessment and Plan (1) Antineoplastic chemotherapy induced pancytopenia Current Visit: No Status: Acute Priority: High Code(s): D61.810 - ANTINEOPLASTIC CHEMOTHERAPY INDUCED PANCYTOPENIA; T45.1X5A - ADVERSE EFFECT OF ANTINEOPLASTIC AND IMMUNOSUP DRUGS, INIT SNOMED Code(s): 907380196445996 (2) Neutropenic fever Current Visit: No Status: Acute Priority: High Code(s): D70.9 - NEUTROPENIA, UNSPECIFIED; R50.81 - FEVER PRESENTING WITH CONDITIONS CLASSIFIED ELSEWHERE SNOMED Code(s): 547260987 (3) Breast cancer, right breast Current Visit: No Status: Chronic Priority: High Code(s): C50.911 - MALIGNANT NEOPLASM OF UNSP SITE OF RIGHT FEMALE BREAST SNOMED Code(s): 077101000 Plan: #Neutropenic fever with persistent nausea and vomiting -Presented with Tmax 103.6 F on day 9, cycle 3 of doxorubicin/cyclophosphamide/pembrolizumab with WBC 0.6 -Chest x-ray with no acute infectious process identified and no mucositis on exam -In addition, she has persistent nausea, vomiting, dizziness, and lightheadedness in the presence of low cortisol of 0.3 seen in clinic -Agree with broad-spectrum antibiotics pending blood cultures -Given the low cortisol with her clinical signs and symptoms, there is concern for adrenal insufficiency secondary to pembrolizumab -As thyroid profile is normal, there is no concern for central hypophysitis -Stress dose steroid hydrocortisone 100 mg IV given on presentation with hydrocortisone 50 mg IV every 8 hours for adrenal insufficiency treatment #Chemotherapy-induced pancytopenia -She is currently day 9, cycle 3 of doxorubicin/cyclophosphamide/pembrolizumab -Her pancytopenia secondary to doxorubicin/cyclophosphamide chemotherapy -Given she has symptomatic anemia, we will transfuse with 1 unit of packed red blood cells -We will also transfuse 1 unit of pheresis platelets for platelet count of 11,000 -CBC with differential daily. Transfuse for hemoglobin less than rectal to 7 or symptomatic anemia and platelet count less than or equal to 10,000 and/or bleeding -She may require C-GSF with Neupogen if her WBC remains suppressed #Stage IIIA triple negative breast cancer of the right breast -Underwent 4 cycles of neoadjuvant carboplatin/paclitaxel/pembrolizumab from 10/22/2022 through 01/14/2023 -She initiated cycle 1 of neoadjuvant doxorubicin/cyclophosphamide/Keytruda on 01/21/2023 -Cycle 2 was complicated by neutropenic fever secondary to COVID-19 along with prolonged nausea and weakness -Cycle 3 on 03/18/2023 at 20% reduction of doxorubicin/cyclophosphamide -There is concern for pembrolizumab induced adrenal insufficiency -We will plan on omitting cycle 4 of doxorubicin/cyclophosphamide/pembrolizumab and proceeding to surgery following adequate recovery outpatient Clover Johnson MD
[2023-03-26] MEDS: OLANZapine 5 MG TAB PO SCH (21:25)
[2023-03-26] MEDS: HYDROCORTISONE SUCCINATE 100 MG/2 ML VIAL IV SCH (21:26)
--- NOTE | 2023-03-26 21:51 | P.CONS ---
History of Present Illness - Reason for Consult Consult date: 03/26/23 - History of Present Illness Patient is a 43-year-old female with a past medical history significant for stage IIIa breast cancer right-sided currently on neoadjuvant chemoimmunotherapy last chemo was about a week ago presenting to the hospital for evaluation of fever patient mention that she did went to the oncology clinic today for transfusion with the patient was noticed to be febrile patient was feeling lightheaded and dizzy noticed to have a low white count advised to go to the ER patient on presentation to the hospital did have a fever of 103.2 F patient was tachycardic mildly hypotensive requiring admission to the ICU but not hypoxic did have white count 0.6 BUN was 12 creatinine 0.87 bilirubin mildly elevated urine was cloudy with 7 WBC COVID testing was negative patient chest x- ray negative for acute process the patient was started on vancomycin and Zosyn has been admitted to hospital infectious disease was consulted for further management of antibiotic therapy, patient currently has been complaining of mostly feeling nauseated and did have vomiting also complaining of diarrhea with multiple loose stool denies any blood or mucus in the stool patient denies having any headache or URI symptoms no chest pain shortness of breath or cough and no need for supplemental oxygen Past Medical History Past Medical History: Cancer Additional Past Medical History / Comment(s): new dx. breast cancer History of Any Multi-Drug Resistant Organisms: None Reported Past Surgical History: Breast Surgery, Tonsillectomy Additional Past Surgical History / Comment(s): recent breast bx. Past Anesthesia/Blood Transfusion Reactions: No Reported Reaction Past Psychological History: No Psychological Hx Reported Smoking Status: Never smoker Past Alcohol Use History: Occasional Past Drug Use History: Marijuana - Past Family History Father Family Medical History: Cancer Additional Family Medical History / Comment(s): brain, paternal grandmother breast cancer Medications and Allergies Home Medications Medication Instructions Recorded Confirmed Type Ergocalciferol [Vitamin D2 (1250 1,250 mcg PO WE 10/15/22 03/26/23 History Mcg = 10694 Iu)] Multivitamins, Thera [Multivitamin 1 tab PO DAILY 10/15/22 03/26/23 History (formulary)] Prochlorperazine [Compazine] 10 mg PO Q6H PRN 02/18/23 03/26/23 History Triamcinolone 0.1% Cream [Kenalog 1 applic TOPICAL TID PRN 02/18/23 03/26/23 History 0.1% Cream] Loperamide [Imodium] 2 mg PO QID PRN #20 cap 02/23/23 03/26/23 Rx OLANZapine [ZyPREXA] 5 mg PO HS 03/26/23 03/26/23 History ondansetron HCL [Zofran] 8 mg PO Q8H PRN 03/26/23 03/26/23 History Allergies Allergy/AdvReac Type Severity Reaction Status Date / Time No Known Allergies Allergy Verified 03/26/23 14:38 Physical Exam Vitals: Vital Signs Temp Pulse Resp BP Pulse Ox 03/26/23 15:15 101.5 F H 96 16 80/44 99 03/26/23 14:30 101.7 F H 94 16 75/27 96 03/26/23 13:25 103.2 F H 03/26/23 12:39 103.6 F H 101 H 20 91/54 100 03/26/23 11:54 110 H 16 80/56 100 03/26/23 11:39 103.2 F H 119 H 22 98 Intake and Output 03/26/23 03/26/23 03/26/23 06:59 14:59 22:59 Other: Weight 108.862 kg Results CBC & Chem 7: 03/26/23 12:16 03/26/23 12:16 Labs: Abnormal Lab Results - Last 24 Hours (Table) 03/26/23 03/26/23 Range/Units 12:16 12:16 WBC 0.6 L* (3.8-10.6) k/uL RBC 2.80 L (3.80-5.40) m/uL Hgb 8.7 L D (11.4-16.0) gm/dL Hct 24.9 L (34.0-46.0) % Plt Count 11 L* D (150-450) k/uL ESR 60 H (0-20) mm/hr Sodium 133 L (137-145) mmol/L Glucose 114 H (74-99) mg/dL Total Bilirubin 1.8 H (0.2-1.3) mg/dL AST 46 H (14-36) U/L C-Reactive Protein 8.4 H (<1.0) mg/dL Assessment and Plan Plan: 1patient presented hospital with sepsis in this patient with a fever tachycardia hypertension and neutropenia source possible abdominal as the patient chest x-ray reported negative for pneumonia urine has been negative patient abdominal was soft medical examination the other like etiology could be line related sepsis the patient have history of port that was accessed yesterday 2-patient to continue with the Zosyn however we will switch over vancomycin to daptomycin to decrease risk of nephrotoxicity while waiting for the culture to finalize We will follow on clinical condition and cultures to further adjust medication if needed Thank you for this consultation we will follow the patient along with you Dictation was produced using [employer] dictation software. please excuse any grammatical, word or spelling errors. Time with Patient: Greater than 30
[2023-03-26] MEDS: DAPTOmycin 500 MG in SODIUM CHLORIDE 0.9% 50 ML IVPB SCH (22:22)
[2023-03-27] MEDS: PIPERACILLIN-TAZOBACTAM 3.375 GM in SODIUM CHLORIDE 0.9% 100 ML IVPB SCH ×3 (00:23→16:02)
[2023-03-27] MEDS: SODIUM CHLORIDE 0.9% 1,000 ML IV SCH ×4 (00:24→20:42)
[2023-03-27] MEDS ORDERED: VANCOMYCIN 1,750 MG in SODIUM CHLORIDE 0.9% 500 ML 500 ML IVPB SCH (02:00)
[2023-03-27 04:48] LABS: African American GFR (CKD) >90 (>60 ml/min/1.73 sqM); Anion Gap 8 mmol/L; Blood Urea Nitrogen 11 mg/dL (7-17); Calcium 7.2 mg/dL (8.4-10.2); Carbon Dioxide 20 mmol/L (22-30); Chloride 108 mmol/L (98-107); Glucose 136 mg/dL (74-99); Non-African American GFR(CKD) >90 (>60 ml/min/1.73 sqM); Potassium 3.6 mmol/L (3.5-5.1); Sodium 136 mmol/L (137-145)
[2023-03-27 04:57] LABS: HGB 8.1 gm/dL (11.4-16.0); MCH 35.8 pg (25.0-35.0); MCV 88.4 fL (80.0-100.0); RBC 2.25 m/uL (3.80-5.40); RDW 15.2 % (11.5-15.5)
[2023-03-27 05:00] LABS: HCT 19.9 % (34.0-46.0); MCHC 40.5 g/dL (31.0-37.0); Platelet Count 10 k/uL (150-450); WBC 0.2 k/uL (3.8-10.6)
[2023-03-27] MEDS ORDERED: Potassium Replacement Protocol 1 EACH MISC MISCELLANE PRN (05:47)
[2023-03-27] MEDS ORDERED: POTASSIUM CHLORIDE ER 20 MEQ TAB.ER PO SCH (06:00)
[2023-03-27] MEDS: HYDROCORTISONE SUCCINATE 100 MG/2 ML VIAL IV SCH ×2 (08:14→16:02)
[2023-03-27] MEDS: PANTOPRAZOLE 40 MG TABLET PO SCH (08:15)
--- NOTE | 2023-03-27 09:23 | P.CNPUL ---
History of Present Illness Consult date: 03/27/23 Requesting physician: Amrita Tinoco Reason for consult: other (Neutropenic fever and pancytopenia) Chief complaint: Weakness and lightheadedness History of present illness: This is a 43-year-old female with known history of stage IIIa triple negative breast cancer of the right breast, on neoadjuvant chemoimmunotherapy recently completed cycle 3 of Adriamycin, cyclophosphamide, pemorolizumab, on 03/18/2023. Patient came into the ER yesterday with complaining of fever, dizziness, lightheadedness, patient had similar presentation back on 02/11/2023 and she required 3 days of Neupogen for persistent neutropenia. Patient was seen in the clinic on 03/25 with multiple constitutional symptoms including lightheadedness and dizziness, and she was noted to have low WBC count of 0.5 with absolute neut rophilic count of 32 she was also noted to have low platelets of 15,000 and hemoglobin of 8.4. Patient was given fluids in the clinic, reevaluated again in the clinic on the day of admission, and she was found to be febrile and hypotensive with systolic pressure in the 70s hence she was advised to go to the ER. While in the ER patient was febrile with a temp of 103.6, she was pancytopenic, she received just over 2 L of normal saline bolus, placed empirically on antibiotics in the form of vancomycin and Zosyn, admitted to the ICU, and this consult was initiated. Today, the patient is hemodynamically stable, she is feeling much better compared to how she felt in the last couple of days. She has a minimal diarrhea, no cough no wheezing no shortness of breath no chest pain follow-up CBC today showed WBC count of 0.2 hemoglobin 8.1 and platelets are down to 10,000. Cultures are pending the rest of the labs are unremarkable including a basic metabolic profile and renal profile. Chest x-ray showed no evidence of active disease. he turned level however is elevated at 0.60 patient was seen by infectious disease on consultation, discontinued vancomycin, kept her on daptomycin and Zosyn. Review of Systems Constitutional: Weakness and lightheadedness dizziness and fever HEENT: Negative Pulmonary: Negative Cardiac: Negative GI intermittent diarrhea, minimal symptoms and no abdominal pain no nausea no vomiting Genitourinary: Negative Musculoskeletal: Weakness and fatigue Neurologic: Negative no headaches no blurred vision or syncope but she did feel lightheaded and dizzy Psychiatric: Negative Skin: Negative Past Medical History Past Medical History: Cancer Additional Past Medical History / Comment(s): new dx. breast cancer History of Any Multi-Drug Resistant Organisms: None Reported Past Surgical History: Breast Surgery, Tonsillectomy Additional Past Surgical History / Comment(s): recent breast bx. Past Anesthesia/Blood Transfusion Reactions: No Reported Reaction Past Psychological History: No Psychological Hx Reported Smoking Status: Never smoker Past Alcohol Use History: Occasional Past Drug Use History: Marijuana - Past Family History Father Family Medical History: Cancer Additional Family Medical History / Comment(s): brain, paternal grandmother breast cancer Medications and Allergies Home Medications Medication Instructions Recorded Confirmed Type Ergocalciferol [Vitamin D2 (1250 1,250 mcg PO WE 10/15/22 03/26/23 History Mcg = 15586 Iu)] Multivitamins, Thera [Multivitamin 1 tab PO DAILY 10/15/22 03/26/23 History (formulary)] Prochlorperazine [Compazine] 10 mg PO Q6H PRN 02/18/23 03/26/23 History Triamcinolone 0.1% Cream [Kenalog 1 applic TOPICAL TID PRN 02/18/23 03/26/23 History 0.1% Cream] Loperamide [Imodium] 2 mg PO QID PRN #20 cap 02/23/23 03/26/23 Rx OLANZapine [ZyPREXA] 5 mg PO HS 03/26/23 03/26/23 History ondansetron HCL [Zofran] 8 mg PO Q8H PRN 03/26/23 03/26/23 History Allergies Allergy/AdvReac Type Severity Reaction Status Date / Time No Known Allergies Allergy Verified 03/26/23 14:38 Physical Exam Vitals: Vital Signs Temp Pulse Pulse Resp BP BP Pulse Ox 03/27/23 08:00 98.8 F 92 20 109/77 97 03/27/23 07:00 76 10 L 121/72 96 03/27/23 06:00 73 24 118/77 95 03/27/23 05:00 79 26 H 108/66 99 03/27/23 04:00 98.0 F 70 9 L 107/66 95 03/27/23 03:00 70 13 122/66 96 03/27/23 02:00 69 5 L 117/81 92 L 03/27/23 01:00 90 10 L 105/67 95 03/27/23 00:09 75 10 L 92 L 03/27/23 00:00 98.7 F 77 19 116/72 92 L 03/26/23 23:40 98.7 F 76 20 116/72 93 L 03/26/23 23:00 75 5 L 99/59 95 03/26/23 22:16 99.4 F 84 20 99/59 96 03/26/23 22:00 100.1 F H 83 15 103/69 98 03/26/23 21:56 100.1 F H 81 13 96/60 98 03/26/23 21:33 98.6 F 86 14 103/69 03/26/23 21:28 99.0 F 86 21 103/65 99 03/26/23 21:08 99.1 F 84 17 95/64 97 03/26/23 21:00 96 23 108/67 100 03/26/23 20:58 99.8 F H 93 16 108/67 98 03/26/23 20:00 99.1 F 81 21 88/49 97 03/26/23 19:00 84 11 L 88/51 96 03/26/23 18:00 86 12 88/51 98 03/26/23 17:00 89 16 84/48 03/26/23 16:00 93 13 100/55 97 03/26/23 15:30 100.1 F H 97 16 100/55 99 03/26/23 15:15 101.5 F H 96 16 80/44 99 03/26/23 14:30 101.7 F H 94 16 75/27 96 03/26/23 13:25 103.2 F H 03/26/23 12:39 103.6 F H 101 H 20 91/54 100 03/26/23 11:54 110 H 16 80/56 100 03/26/23 11:39 103.2 F H 119 H 22 98 Intake and Output 03/26/23 03/27/23 03/27/23 22:59 06:59 14:59 Intake Total 2308 1720 1060 Output Total 700 800 300 Balance 1608 920 760 Intake: IV 1640 1080 280 0.9% NS @ KVO 20 20 DAPTOmycin 500 mg In 50 Sodium Chloride 0.9% 50 ml @ 100 mls/hr IVPB Q24H [facility] Rx#:[id number] Piperacillin-Tazobactam 3 100 100 .375 gm In Sodium Chloride 0.9% 100 ml @ 25 mls/hr IVPB Q8HR [facility] Rx# :[id number] Sodium Chloride 0.9% 1, 1040 910 260 000 ml @ 130 mls/hr IV . Q7H42M [facility] Rx#:[id number] Vancomycin 1,750 mg In 500 Sodium Chloride 0.9% 500 ml 500 ml @ 167 mls/hr IVPB ONCE [facility] Rx#: [id number] Oral 780 Blood Product 668 640 Platelet Pheresis Pas 334 Psoralen Unit [id number] Rc Irr As1 Unit 0 310 [id number] Output: Urine 700 800 300 Other: Voiding Method Bedside Commode Bedside Commode Weight 108.862 kg 112.1 kg Physical Exam: Revealed 43-year-old female in no distress Head: Atraumatic, normocephalic. HEENT:[Neck is supple.] [No neck masses.] [No thyromegaly.] [No JVD.] Chest: [Clear throughout, no crackles, no rhonchi, no wheezes.] Cardiac Exam: [Normal S1 and S2, no S3 gallop, no murmur.] Abdomen: [Soft, nontender, no megaly, no rebound, no guarding, normal bowel sounds.] Extremities: [No clubbing, no edema, no cyanosis.] Neurological Exam: [No focal neurologic deficit.] Alert and oriented 3 Psychiatric: Normal mood affect and normal mental status examination Skin: No rashes Results - Laboratory Findings CBC and BMP: 03/27/23 03:57 03/27/23 03:57 PT/INR, D-dimer PT 11.2 sec (9.0-12.0) 03/26/23 12:16 INR 1.1 (<1.2) 03/26/23 12:16 Abnormal lab findings: Abnormal Labs 03/26/23 03/26/23 03/26/23 12:16 12:16 12:16 WBC 0.6 L* RBC 2.80 L Hgb 8.7 L D Hct 24.9 L MCH MCHC Plt Count 11 L* D ESR 60 H Sodium 133 L Chloride Carbon Dioxide Glucose 114 H Calcium Total Bilirubin 1.8 H AST 46 H C-Reactive Protein 8.4 H Procalcitonin Urine Appearance Cloudy H Urine Protein Trace H Urine Ketones 1+ H Urine WBC 7 H Ur Squamous Epith Cells 8 H Urine Bacteria Rare H Urine Mucus Moderate H Crossmatch 03/26/23 03/26/23 03/27/23 12:16 18:02 03:57 WBC RBC Hgb Hct MCH MCHC Plt Count ESR Sodium 136 L Chloride 108 H Carbon Dioxide 20 L Glucose 136 H Calcium 7.2 L Total Bilirubin AST C-Reactive Protein Procalcitonin 0.60 H Urine Appearance Urine Protein Urine Ketones Urine WBC Ur Squamous Epith Cells Urine Bacteria Urine Mucus Crossmatch See Detail 03/27/23 03:57 WBC 0.2 L* RBC 2.25 L Hgb 8.1 L Hct 19.9 L* MCH 35.8 H MCHC 40.5 H Plt Count 10 L* ESR Sodium Chloride Carbon Dioxide Glucose Calcium Total Bilirubin AST C-Reactive Protein Procalcitonin Urine Appearance Urine Protein Urine Ketones Urine WBC Ur Squamous Epith Cells Urine Bacteria Urine Mucus Crossmatch - Diagnostic Findings Chest x-ray: image reviewed (Chest x-ray is unremarkable) Assessment and Plan Assessment: Impression: Acute neutropenic fever Acute pancytopenia, chemotherapy induced History of right breast cancer Recommendation: Continue to monitor the patient in the ICU Continue broad-spectrum antibiotics including Zosyn and daptomycin Awaiting blood cultures and antibiotics will be addressed accordingly Pancytopenia is being addressed by oncology on the case patient received platelets already, and she also received a unit of packed RBCs Agree with hydrocortisone GI prophylaxis with pantoprazole Continue to monitor daily CBC We will continue to follow Time with Patient: Greater than 30
--- NOTE | 2023-03-27 12:53 | P.PN ---
Subjective Progress Note Date: 03/27/23 Principal diagnosis: breast cancer, fever Patient seen today in the ICU. She reports feeling significantly improved. patient states she was able to tolerate her breakfast without nausea vomiting. Patient afebrile today Objective - Vital Signs Vital signs: Vital Signs Temp 97.7 F 03/27/23 12:00 Pulse 80 03/27/23 12:00 Resp 22 03/27/23 12:00 BP 107/72 03/27/23 12:00 Pulse Ox 99 03/27/23 12:00 FiO2 Intake & Output 03/26/23 03/27/23 03/27/23 18:59 06:59 18:59 Intake Total 1120 2908 2170 Output Total 100 1400 500 Balance 1020 1508 1670 Weight 108.862 kg 112.1 kg Intake: IV 1120 1600 900 0.9% NS @ KVO 20 20 DAPTOmycin 500 mg In 50 Sodium Chloride 0.9% 50 ml @ 100 mls/hr IVPB Q24H [facility] Rx#:[id number] Piperacillin-Tazobactam 3 100 100 100 .375 gm In Sodium Chloride 0.9% 100 ml @ 25 mls/hr IVPB Q8HR [facility] Rx# :[id number] Sodium Chloride 0.9% 1, 520 1430 780 000 ml @ 130 mls/hr IV . Q7H42M [facility] Rx#:[id number] Vancomycin 1,750 mg In 500 Sodium Chloride 0.9% 500 ml 500 ml @ 167 mls/hr IVPB ONCE [facility] Rx#: [id number] Oral 1270 Blood Product 1308 Platelet Pheresis Pas 334 Psoralen Unit [id number] Rc Irr As1 Unit 310 [id number] Output: Urine 100 1400 300 Stool 200 Other: Voiding Method Bedside Commode Bedside Commode # Voids 1 - Constitutional General appearance: Present: no acute distress - EENT Eyes: Present: anicteric sclerae, EOMI ENT: Present: hearing grossly normal - Respiratory Details: breathing is even and unlabored - Cardiovascular Details: skin warm and dry - Integumentary Integumentary: Present: pale. Absent: cyanotic, jaundiced - Neurologic Neurologic: Present: CNII-XII intact - Musculoskeletal Musculoskeletal: Present: strength equal bilaterally - Psychiatric Psychiatric: Present: A&O x's 3, appropriate affect, intact judgment & insight - Labs CBC & Chem 7: 03/27/23 03:57 03/27/23 03:57 Labs: Abnormal Lab Results - Last 24 Hours (Table) 03/26/23 03/26/23 03/26/23 Range/Units 12:16 12:16 12:16 WBC 0.6 L* (3.8-10.6) k/uL RBC 2.80 L (3.80-5.40) m/uL Hgb 8.7 L D (11.4-16.0) gm/dL Hct 24.9 L (34.0-46.0) % MCH (25.0-35.0) pg MCHC (31.0-37.0) g/dL Plt Count 11 L* D (150-450) k/uL ESR 60 H (0-20) mm/hr Sodium 133 L (137-145) mmol/L Chloride (98-107) mmol/L Carbon Dioxide (22-30) mmol/L Glucose 114 H (74-99) mg/dL Calcium (8.4-10.2) mg/dL Total Bilirubin 1.8 H (0.2-1.3) mg/dL AST 46 H (14-36) U/L C-Reactive Protein 8.4 H (<1.0) mg/dL Procalcitonin (0.02-0.09) ng/mL Urine Appearance Cloudy H (Clear) Urine Protein Trace H (Negative) Urine Ketones 1+ H (Negative) Urine WBC 7 H (0-5) /hpf Ur Squamous Epith Cells 8 H (0-4) /hpf Urine Bacteria Rare H (None) /hpf Urine Mucus Moderate H (None) /hpf Crossmatch 03/26/23 03/26/23 03/27/23 Range/Units 12:16 18:02 03:57 WBC (3.8-10.6) k/uL RBC (3.80-5.40) m/uL Hgb (11.4-16.0) gm/dL Hct (34.0-46.0) % MCH (25.0-35.0) pg MCHC (31.0-37.0) g/dL Plt Count (150-450) k/uL ESR (0-20) mm/hr Sodium 136 L (137-145) mmol/L Chloride 108 H (98-107) mmol/L Carbon Dioxide 20 L (22-30) mmol/L Glucose 136 H (74-99) mg/dL Calcium 7.2 L (8.4-10.2) mg/dL Total Bilirubin (0.2-1.3) mg/dL AST (14-36) U/L C-Reactive Protein (<1.0) mg/dL Procalcitonin 0.60 H (0.02-0.09) ng/mL Urine Appearance (Clear) Urine Protein (Negative) Urine Ketones (Negative) Urine WBC (0-5) /hpf Ur Squamous Epith Cells (0-4) /hpf Urine Bacteria (None) /hpf Urine Mucus (None) /hpf Crossmatch See Detail 03/27/23 Range/Units 03:57 WBC 0.2 L* (3.8-10.6) k/uL RBC 2.25 L (3.80-5.40) m/uL Hgb 8.1 L (11.4-16.0) gm/dL Hct 19.9 L* (34.0-46.0) % MCH 35.8 H (25.0-35.0) pg MCHC 40.5 H (31.0-37.0) g/dL Plt Count 10 L* (150-450) k/uL ESR (0-20) mm/hr Sodium (137-145) mmol/L Chloride (98-107) mmol/L Carbon Dioxide (22-30) mmol/L Glucose (74-99) mg/dL Calcium (8.4-10.2) mg/dL Total Bilirubin (0.2-1.3) mg/dL AST (14-36) U/L C-Reactive Protein (<1.0) mg/dL Procalcitonin (0.02-0.09) ng/mL Urine Appearance (Clear) Urine Protein (Negative) Urine Ketones (Negative) Urine WBC (0-5) /hpf Ur Squamous Epith Cells (0-4) /hpf Urine Bacteria (None) /hpf Urine Mucus (None) /hpf Crossmatch Assessment and Plan (1) Antineoplastic chemotherapy induced pancytopenia Current Visit: Yes Status: Acute Priority: High Code(s): D61.810 - ANTINEOPLASTIC CHEMOTHERAPY INDUCED PANCYTOPENIA; T45.1X5A - ADVERSE EFFECT OF ANTINEOPLASTIC AND IMMUNOSUP DRUGS, INIT SNOMED Code(s): 792304309775602 (2) Neutropenic fever Current Visit: Yes Status: Acute Priority: High Code(s): D70.9 - NEUTROPENIA, UNSPECIFIED; R50.81 - FEVER PRESENTING WITH CONDITIONS CLASSIFIED ELSEWHERE SNOMED Code(s): 810534262 (3) Breast cancer, right breast Current Visit: Yes Status: Chronic Priority: High Code(s): C50.911 - MALIGNANT NEOPLASM OF UNSP SITE OF RIGHT FEMALE BREAST SNOMED Code(s): 971977856 Plan: #Neutropenic fever with persistent nausea and vomiting -Presented with Tmax 103.6 F on day 9, cycle 3 of doxorub icin/cyclophosphamide/pembrolizumab with WBC 0.6 -Chest x-ray with no acute infectious process identified and no mucositis on exam -In addition, she has persistent nausea, vomiting, dizziness, and lig htheadedness in the presence of low cortisol of 0.3 seen in clinic -Agree with broad-spectrum antibiotics pending blood cultures -Given the low cortisol with her clinical signs and symptoms, there is concern for adrenal insufficiency secondary to pembrolizumab -As thyroid profile is normal, there is no concern for central hypophysitis -Stress dose steroid hydrocortisone 100 mg IV given on presentation with hydrocortisone 50 mg IV every 8 hours for adrenal insufficiency treatment -Blood and urine cultures and stool pending -Reports significant improvement in symptoms, afebrile today #Chemotherapy-induced pancytopenia -She is currently day 9, cycle 3 of doxorubicin/cyclophosphamide/pembrolizumab -Her pancytopenia secondary to doxorubicin/cyclophosphamide chemotherapy -S/p 1 unit PRBCs and platelets -CBC with differential daily. Transfuse for hemoglobin less than rectal to 7 or symptomatic anemia and platelet count less than 10,000 and/or bleeding -She may require C-GSF with Neupogen if her WBC remains suppressed #Stage IIIA triple negative breast cancer of the right breast -Underwent 4 cycles of neoadjuvant carboplatin/paclitaxel/pembrolizumab from 10/22/2022 through 01/14/2023 -She initiated cycle 1 of neoadjuvant doxorubicin/cyclophosphamide/Keytruda on 01/21/2023 -Cycle 2 was complicated by neutropenic fever secondary to COVID-19 along with prolonged nausea and weakness -Cycle 3 on 03/18/2023 at 20% reduction of doxorubicin/cyclophosphamide -There is concern for pembrolizumab induced adrenal insufficiency -We will plan on omitting cycle 4 of doxorubicin/cyclophosphamide/pembrolizumab and proceeding to surgery following adequate recovery outpatient
--- NOTE | 2023-03-27 13:22 | P.HPIM ---
History of Present Illness H&P Date: 03/27/23 History of present illness; she is a 43-year-old lady with past medical signific ant for breast cancer on neoadjuvant chemo immunotherapy,recently completed cycle 3 of Adriamycin/cyclophosphamide/pembrolizumab on 03/18/2023 presented to the ER because of feeling of dizziness and fevers. Patient was admitted to hospital with similar complaints on 02/11/23 at which time patient was given prophylactic antibiotics and Neupogen. Patient was being followed up outpatient by hematology, patient was complaining of lightheadedness and was having fevers, in the clinic was found to be hypotensive with blood pressure in his 70s systolic. Patient was sent to the ER where initial temperature was 103.6. Initial lab work done in the ER showed WBC 0.6, hemoglobin 8.7, platelet count is 11, sodium 133, potassium 3.6, BUN 12, creatinine 0.87 Chest x-ray done in the ER showed no acute process Patient was admitted to ICU REVIEW OF SYSTEMS: CONSTITUTIONAL: As mentioned in HPI HEENT: No recent visual problems or hearing problems. Denied any sore throat. CARDIOVASCULAR: No chest pain, orthopnea, PND, no palpitations, no syncope. PULMONARY: No shortness of breath, no cough, no hemoptysis. GASTROINTESTINAL as mentioned in HPI NEUROLOGICAL: No headaches, no weakness, no numbness. HEMATOLOGICAL: Denies any bleeding or petechiae. GENITOURINARY: Denies any burning micturition, frequency, or urgency. MUSCULOSKELETAL/RHEUMATOLOGICAL: Denies any joint pain, swelling, or any muscle pain. ENDOCRINE: Denies any polyuria or polydipsia. The rest of the 14-point review of systems is negative. PHYSICAL EXAMINATION: GENERAL: The patient is alert and oriented x3, not in any acute distress. Well developed, well nourished. HEENT: Pupils are round and equally reacting to light. EOMI. No scleral icterus. No conjunctival pallor. Normocephalic, atraumatic. No pharyngeal erythema. No thyromegaly. CARDIOVASCULAR: S1 and S2 present. No murmurs, rubs, or gallops. PULMONARY: Chest is clear to auscultation, no wheezing or crackles. ABDOMEN: Soft, nontender, nondistended, normoactive bowel sounds. No palpable organomegaly. MUSCULOSKELETAL: No joint swelling or deformity. EXTREMITIES: No cyanosis, clubbing, or pedal edema. NEUROLOGICAL: Gross neurological examination did not reveal any focal deficits. SKIN: No rashes. Assessment and plan Neutropenic fevers Pancytopenia Monitor vital signs Neutropenic precautions Monitor CBC Monitor CMP Continue telemetry monitoring Follow-up on blood cultures Follow-up on urine cultures Continue IV fluids Continue IV daptomycin and Zosyn Hematology oncology consulted ID consulted Critical care following Labs and medication were reviewed.. Continue same treatment. Continue with symptomatic treatment. Resume home medication. Monitor labs and vitals. DVT and GI prophylaxis. Further recommendations as per clinical course of the patient Dictation was produced using [employer] dictation software. please excuse any grammatical, word or spelling errors. Past Medical History Past Medical History: Cancer Additional Past Medical History / Comment(s): new dx. breast cancer History of Any Multi-Drug Resistant Organisms: None Reported Past Surgical History: Breast Surgery, Tonsillectomy Additional Past Surgical History / Comment(s): recent breast bx. Past Anesthesia/Blood Transfusion Reactions: No Reported Reaction Past Psychological History: No Psychological Hx Reported Smoking Status: Never smoker Past Alcohol Use History: Occasional Past Drug Use History: Marijuana - Past Family History Father Family Medical History: Cancer Additional Family Medical History / Comment(s): brain, paternal grandmother breast cancer Medications and Allergies Home Medications Medication Instructions Recorded Confirmed Type Ergocalciferol [Vitamin D2 (1250 1,250 mcg PO WE 10/15/22 03/26/23 History Mcg = 46490 Iu)] Multivitamins, Thera [Multivitamin 1 tab PO DAILY 10/15/22 03/26/23 History (formulary)] Prochlorperazine [Compazine] 10 mg PO Q6H PRN 02/18/23 03/26/23 History Triamcinolone 0.1% Cream [Kenalog 1 applic TOPICAL TID PRN 02/18/23 03/26/23 History 0.1% Cream] Loperamide [Imodium] 2 mg PO QID PRN #20 cap 02/23/23 03/26/23 Rx OLANZapine [ZyPREXA] 5 mg PO HS 03/26/23 03/26/23 History ondansetron HCL [Zofran] 8 mg PO Q8H PRN 03/26/23 03/26/23 History Allergies Allergy/AdvReac Type Severity Reaction Status Date / Time No Known Allergies Allergy Verified 03/26/23 14:38 Physical Exam Vitals: Vital Signs Temp Pulse Pulse Resp BP BP Pulse Ox 03/27/23 12:00 97.7 F 80 22 107/72 99 03/27/23 11:00 71 16 94/60 98 03/27/23 10:00 80 10 L 112/72 96 03/27/23 09:00 81 14 112/72 97 03/27/23 08:00 98.8 F 92 16 109/77 97 03/27/23 07:00 76 10 L 121/72 96 03/27/23 06:00 73 24 118/77 95 03/27/23 05:00 79 26 H 108/66 99 03/27/23 04:00 98.0 F 70 9 L 107/66 95 03/27/23 03:00 70 13 122/66 96 03/27/23 02:00 69 5 L 117/81 92 L 03/27/23 01:00 90 10 L 105/67 95 03/27/23 00:09 75 10 L 92 L 03/27/23 00:00 98.7 F 77 19 116/72 92 L 03/26/23 23:40 98.7 F 76 20 116/72 93 L 03/26/23 23:00 75 5 L 99/59 95 03/26/23 22:16 99.4 F 84 20 99/59 96 03/26/23 22:00 100.1 F H 83 15 103/69 98 03/26/23 21:56 100.1 F H 81 13 96/60 98 03/26/23 21:33 98.6 F 86 14 103/69 03/26/23 21:28 99.0 F 86 21 103/65 99 03/26/23 21:08 99.1 F 84 17 95/64 97 03/26/23 21:00 96 23 108/67 100 03/26/23 20:58 99.8 F H 93 16 108/67 98 03/26/23 20:00 99.1 F 81 21 88/49 97 03/26/23 19:00 84 11 L 88/51 96 03/26/23 18:00 86 12 88/51 98 03/26/23 17:00 89 16 84/48 03/26/23 16:00 93 13 100/55 97 03/26/23 15:30 100.1 F H 97 16 100/55 99 03/26/23 15:15 101.5 F H 96 16 80/44 99 03/26/23 14:30 101.7 F H 94 16 75/27 96 03/26/23 13:25 103.2 F H Intake and Output 03/26/23 03/27/23 03/27/23 22:59 06:59 14:59 Intake Total 2308 1720 2170 Output Total 700 800 500 Balance 2375 647 9882 Intake: IV 1640 1080 900 0.9% NS @ KVO 20 20 DAPTOmycin 500 mg In 50 Sodium Chloride 0.9% 50 ml @ 100 mls/hr IVPB Q24H [facility] Rx#:[id number] Piperacillin-Tazobactam 3 100 100 100 .375 gm In Sodium Chloride 0.9% 100 ml @ 25 mls/hr IVPB Q8HR [facility] Rx# :[id number] Sodium Chloride 0.9% 1, 1040 910 780 000 ml @ 130 mls/hr IV . Q7H42M [facility] Rx#:[id number] Vancomycin 1,750 mg In 500 Sodium Chloride 0.9% 500 ml 500 ml @ 167 mls/hr IVPB ONCE [facility] Rx#: [id number] Oral 1270 Blood Product 668 640 Platelet Pheresis Pas 334 Psoralen Unit [id number] Rc Irr As1 Unit 0 310 [id number] Output: Urine 700 800 300 Stool 200 Other: Voiding Method Bedside Commode Bedside Commode Bedside Commode # Voids 1 Weight 108.862 kg 112.1 kg Results CBC & Chem 7: 03/27/23 03:57 03/27/23 03:57 Labs: Abnormal Lab Results - Last 24 Hours (Table) 03/26/23 03/26/23 03/26/23 Range/Units 12:16 12:16 12:16 WBC 0.6 L* (3.8-10.6) k/uL RBC 2.80 L (3.80-5.40) m/uL Hgb 8.7 L D (11.4-16.0) gm/dL Hct 24.9 L (34.0-46.0) % MCH (25.0-35.0) pg MCHC (31.0-37.0) g/dL Plt Count 11 L* D (150-450) k/uL ESR 60 H (0-20) mm/hr Sodium (137-145) mmol/L Chloride (98-107) mmol/L Carbon Dioxide (22-30) mmol/L Glucose (74-99) mg/dL Calcium (8.4-10.2) mg/dL Procalcitonin 0.60 H (0.02-0.09) ng/mL Urine Appearance Cloudy H (Clear) Urine Protein Trace H (Negative) Urine Ketones 1+ H (Negative) Urine WBC 7 H (0-5) /hpf Ur Squamous Epith Cells 8 H (0-4) /hpf Urine Bacteria Rare H (None) /hpf Urine Mucus Moderate H (None) /hpf Crossmatch 03/26/23 03/27/23 03/27/23 Range/Units 18:02 03:57 03:57 WBC 0.2 L* (3.8-10.6) k/uL RBC 2.25 L (3.80-5.40) m/uL Hgb 8.1 L (11.4-16.0) gm/dL Hct 19.9 L* (34.0-46.0) % MCH 35.8 H (25.0-35.0) pg MCHC 40.5 H (31.0-37.0) g/dL Plt Count 10 L* (150-450) k/uL ESR (0-20) mm/hr Sodium 136 L (137-145) mmol/L Chloride 108 H (98-107) mmol/L Carbon Dioxide 20 L (22-30) mmol/L Glucose 136 H (74-99) mg/dL Calcium 7.2 L (8.4-10.2) mg/dL Procalcitonin (0.02-0.09) ng/mL Urine Appearance (Clear) Urine Protein (Negative) Urine Ketones (Negative) Urine WBC (0-5) /hpf Ur Squamous Epith Cells (0-4) /hpf Urine Bacteria (None) /hpf Urine Mucus (None) /hpf Crossmatch See Detail Thrombosis Risk Factor Assmnt - Choose All That Apply Any of the Below Risk Factors Present?: Yes Each Factor Represents 1 point: Age 41-60 years Other Risk Factors: Yes Each Risk Factor Represents 2 Points: Malignancy Other congenital or acquired thrombophilia - If yes, enter type in comment: No Thrombosis Risk Factor Assessment Total Risk Factor Score: 3 Thrombosis Risk Factor Assessment Level: Moderate Risk
[2023-03-27] MEDS: OLANZapine 5 MG TAB PO SCH (20:42)
[2023-03-27] MEDS: DAPTOmycin 500 MG in SODIUM CHLORIDE 0.9% 50 ML IVPB SCH (21:54)
[2023-03-28] MEDS: PIPERACILLIN-TAZOBACTAM 3.375 GM in SODIUM CHLORIDE 0.9% 100 ML IVPB SCH ×4 (00:10→23:18)
[2023-03-28] MEDS: HYDROCORTISONE SUCCINATE 100 MG/2 ML VIAL IV SCH ×4 (00:10→23:17)
[2023-03-28 04:40] LABS: HCT 21.3 % (34.0-46.0); HGB 7.3 gm/dL (11.4-16.0); MCH 30.7 pg (25.0-35.0); MCHC 34.3 g/dL (31.0-37.0); MCV 89.6 fL (80.0-100.0); Mean Platelet Volume 11.8; RBC 2.38 m/uL (3.80-5.40); RDW 15.4 % (11.5-15.5)
[2023-03-28 04:54] LABS: Platelet Count 7 k/uL (150-450)
[2023-03-28] MEDS: SODIUM CHLORIDE 0.9% 1,000 ML IV SCH ×4 (05:06→23:17)
[2023-03-28 06:00] LABS: African American GFR (CKD) >90 (>60 ml/min/1.73 sqM); Anion Gap 7 mmol/L; Blood Urea Nitrogen 9 mg/dL (7-17); Carbon Dioxide 19 mmol/L (22-30); Chloride 114 mmol/L (98-107); Glucose 136 mg/dL (74-99); Non-African American GFR(CKD) >90 (>60 ml/min/1.73 sqM); Potassium 3.1 mmol/L (3.5-5.1); Sodium 140 mmol/L (137-145)
[2023-03-28] MEDS ORDERED: Potassium Replacement Protocol 1 EACH MISC MISCELLANE PRN (06:08)
[2023-03-28] MEDS: POTASSIUM CHLORIDE ER 20 MEQ TAB.ER PO SCH ×5 (06:23→23:18)
[2023-03-28 06:49] LABS: Anisocytosis (M) Present; Hypochromasia (M) Present; Poikilocytosis (M) Present
[2023-03-28 07:08] LABS: WBC 0.4 k/uL (3.8-10.6)
--- NOTE | 2023-03-28 09:36 | P.PN ---
Subjective Progress Note Date: 03/27/23 Principal diagnosis: Sepsis/febrile neutropenia Patient is a 43-year-old female with a past medical history significant for stage IIIa breast cancer right-sided currently on neoadjuvant chemoimmunotherapy last chemo was about a week ago presenting to the hospital for evaluation of fever. On today's evaluation there is 03/27/2023 patient fever pattern has improved last temperature was 100.1 last night no fever this morning patient is breathing comfortably on room air, patient denies having any chest pain or shortness with occasional cough no abdominal pain no further vomiting still having diarrhea no blood or mucus in the stool. Patient did have a white count of 0.2 creatinine 0.70 stool for C. difficile is negative blood cultures so far pending Objective - Vital Signs Vital signs: Vital Signs Temp 97.7 F 03/27/23 12:00 Pulse 82 03/27/23 15:00 Resp 22 03/27/23 15:00 BP 116/72 03/27/23 15:00 Pulse Ox 97 03/27/23 15:00 FiO2 Intake & Output 03/26/23 03/27/23 03/27/23 18:59 06:59 18:59 Intake Total 1120 2908 2690 Output Total 100 1400 800 Balance 1020 1508 1890 Weight 108.862 kg 112.1 kg 112.1 kg Intake: IV 1120 1600 1320 0.9% NS @ KVO 20 50 DAPTOmycin 500 mg In 50 Sodium Chloride 0.9% 50 ml @ 100 mls/hr IVPB Q24H [facility] Rx#:[id number] Piperacillin-Tazobactam 3 100 100 100 .375 gm In Sodium Chloride 0.9% 100 ml @ 25 mls/hr IVPB Q8HR [facility] Rx# :[id number] Sodium Chloride 0.9% 1, 520 1430 1170 000 ml @ 130 mls/hr IV . Q7H42M [facility] Rx#:[id number] Vancomycin 1,750 mg In 500 Sodium Chloride 0.9% 500 ml 500 ml @ 167 mls/hr IVPB ONCE [facility] Rx#: [id number] Oral 1370 Blood Product 1308 Platelet Pheresis Pas 334 Psoralen Unit [id number] Rc Irr As1 Unit 310 [id number] Output: Urine 100 1400 600 Stool 200 Other: Voiding Method Bedside Commode Bedside Commode # Voids 1 # Bowel Movements 1 - Exam GENERAL DESCRIPTION: Middle-aged female up in the chair in no distress RESPIRATORY SYSTEM: Unlabored breathing , decreased breath sounds at bases HEART: S1 S2 regular rate and rhythm ,no loud murmurs ABDOMEN: Soft , no tenderness EXTREMITIES: No edema feet - Labs CBC & Chem 7: 03/28/23 04:19 03/28/23 05:29 Labs: Abnormal Lab Results - Last 24 Hours (Table) 03/26/23 03/26/23 03/26/23 Range/Units 12:16 12:16 18:02 WBC (3.8-10.6) k/uL RBC (3.80-5.40) m/uL Hgb (11.4-16.0) gm/dL Hct (34.0-46.0) % MCH (25.0-35.0) pg MCHC (31.0-37.0) g/dL Plt Count (150-450) k/uL Sodium (137-145) mmol/L Chloride (98-107) mmol/L Carbon Dioxide (22-30) mmol/L Glucose (74-99) mg/dL Calcium (8.4-10.2) mg/dL Procalcitonin 0.60 H (0.02-0.09) ng/mL Urine Appearance Cloudy H (Clear) Urine Protein Trace H (Negative) Urine Ketones 1+ H (Negative) Urine WBC 7 H (0-5) /hpf Ur Squamous Epith Cells 8 H (0-4) /hpf Urine Bacteria Rare H (None) /hpf Urine Mucus Moderate H (None) /hpf Crossmatch See Detail 03/27/23 03/27/23 Range/Units 03:57 03:57 WBC 0.2 L* (3.8-10.6) k/uL RBC 2.25 L (3.80-5.40) m/uL Hgb 8.1 L (11.4-16.0) gm/dL Hct 19.9 L* (34.0-46.0) % MCH 35.8 H (25.0-35.0) pg MCHC 40.5 H (31.0-37.0) g/dL Plt Count 10 L* (150-450) k/uL Sodium 136 L (137-145) mmol/L Chloride 108 H (98-107) mmol/L Carbon Dioxide 20 L (22-30) mmol/L Glucose 136 H (74-99) mg/dL Calcium 7.2 L (8.4-10.2) mg/dL Procalcitonin (0.02-0.09) ng/mL Urine Appearance (Clear) Urine Protein (Negative) Urine Ketones (Negative) Urine WBC (0-5) /hpf Ur Squamous Epith Cells (0-4) /hpf Urine Bacteria (None) /hpf Urine Mucus (None) /hpf Crossmatch Assessment and Plan (1) Neutropenic fever Current Visit: Yes Status: Acute Priority: High Code(s): D70.9 - NEUTROPENIA, UNSPECIFIED; R50.81 - FEVER PRESENTING WITH CONDITIONS CLASSIFIED ELSEWHERE SNOMED Code(s): 773434911 (2) SIRS (systemic inflammatory response syndrome) Current Visit: Yes Status: Acute Code(s): R65.10 - SIRS OF NON-INFECTIOUS O RIGIN W/O ACUTE ORGAN DYSFUNCTION SNOMED Code(s): 422120061 Plan: 1patient presented hospital with sepsis in this patient with a fever tachyc ardia hypertension and neutropenia source possible abdominal as the patient chest x-ray reported negative for pneumonia urine has been negative patient abdominal was soft medical examination the other like etiology could be line related sepsis the patient have history of port that was accessed yesterday 2patient did have a resolution of the fever White count is still low cultures are currently pending, stool for C. difficile is negative 3-we will keep the patient on Zosyn and daptomycin while waiting for the culture to finalize and monitor clinical course closely Dictation was produced using [employer] dictation software. please excuse any grammatical, word or spelling errors.
[2023-03-28] MEDS: PANTOPRAZOLE 40 MG TABLET PO SCH (09:44)
[2023-03-28] MEDS: FILGRASTIM-SNDZ 480 MCG/0.8 ML SYRINGE SQ SCH (11:08)
--- NOTE | 2023-03-28 11:29 | P.PN ---
Subjective Progress Note Date: 03/28/23 Principal diagnosis: Pancytopenia, bacteremia, neutropenia with fever This is a 43-year-old female with known history of stage IIIa triple negative breast cancer of the right breast, on neoadjuvant chemoimmunotherapy recently completed cycle 3 of Adriamycin, cyclophosphamide, pemorolizumab, on 03/18/2023. Patient came into the ER yesterday with complaining of fever, dizziness, lightheadedness, patient had similar presentation back on 02/11/2023 and she required 3 days of Neupogen for persistent neutropenia. Patient was seen in the clinic on 03/25 with multiple constitutional symptoms including lightheadedness and dizziness, and she was noted to have low WBC count of 0.5 with absolute neutrophilic count of 32 she was also noted to have low platelets of 15,000 and hemoglobin of 8.4. Patient was given fluids in the clinic, reevaluated again in the clinic on the day of admission, and she was found to be febrile and hypotensive with systolic pressure in the 70s hence she was advised to go to the ER. While in the ER patient was febrile with a temp of 103.6, she was panc ytopenic, she received just over 2 L of normal saline bolus, placed empirically on antibiotics in the form of vancomycin and Zosyn, admitted to the ICU, and this consult was initiated. Today, the patient is hemodynamically stable, she is feeling much better compared to how she felt in the last couple of days. She has a minimal diarrhea, no cough no wheezing no shortness of breath no chest pain follow-up CBC today showed WBC count of 0.2 hemoglobin 8.1 and platelets are down to 10,000. Cultures are pending the rest of the labs are unremarkable including a basic metabolic profile and renal profile. Chest x-ray showed no evidence of active disease. he turned level however is elevated at 0.60 patient was seen by infectious disease on consultation, discontinued vancomycin, kept her on daptomycin and Zosyn. Seen today on 03/28/2023, patient remains in the ICU, feeling fine, she is not in any distress, however her CBC remains quite abnormal and her blood cultures are positive. Patient remains on Zosyn and daptomycin has diabetes and 0.4 hemoglobin 7.3 platelets are 7000 and the patient will likely receive more platelets and packed RBCs from oncology on the case. Blood cultures have been reported positive, but not specific. Infectious diseases handling the situation. Pulmonary-cook no cough no wheezing no shortness of breath. Objective - Vital Signs Vital signs: Vital Signs Temp 97.7 F 03/28/23 08:00 Pulse 70 03/28/23 10:00 Resp 25 H 03/28/23 10:00 BP 117/73 03/28/23 10:00 Pulse Ox 100 03/28/23 10:00 FiO2 Intake & Output 03/27/23 03/28/23 03/28/23 18:59 06:59 18:59 Intake Total 3180 2240 520 Output Total 900 1425 0 Balance 2280 815 520 Weight 112.1 kg 118 kg Intake: IV 1810 1700 520 0.9% NS @ KVO 50 40 DAPTOmycin 500 mg In 100 Sodium Chloride 0.9% 50 ml @ 100 mls/hr IVPB Q24H [facility] Rx#:[id number] Piperacillin-Tazobactam 3 200 .375 gm In Sodium Chloride 0.9% 100 ml @ 25 mls/hr IVPB Q8HR [facility] Rx# :[id number] Sodium Chloride 0.9% 1, 1560 1560 520 000 ml @ 130 mls/hr IV . Q7H42M [facility] Rx#:[id number] Oral 1370 540 Output: Urine 600 1425 0 Stool 300 Other: Voiding Method Bedside Commode Bedside Commode # Voids 1 # Bowel Movements 1 1 - Exam Physical Exam: Revealed 43-year-old female in no distress Head: Atraumatic, normocephalic. HEENT:[Neck is supple.] [No neck masses.] [No thyromegaly.] [No JVD.] Chest: [Clear throughout, no crackles, no rhonchi, no wheezes.] Cardiac Exam: [Normal S1 and S2, no S3 gallop, no murmur.] Abdomen: [Soft, nontender, no megaly, no rebound, no guarding, normal bowel sounds.] Extremities: [No clubbing, no edema, no cyanosis.] Neurological Exam: [No focal neurologic deficit.] Alert and oriented 3 Psychiatric: Normal mood affect and normal mental status examination Skin: No rashes - Labs CBC & Chem 7: 03/28/23 04:19 03/28/23 05:29 Labs: Abnormal Lab Results - Last 24 Hours (Table) 03/28/23 03/28/23 Range/Units 04:19 05:29 WBC 0.4 L* (3.8-10.6) k/uL RBC 2.38 L (3.80-5.40) m/uL Hgb 7.3 L (11.4-16.0) gm/dL Hct 21.3 L (34.0-46.0) % Plt Count 7 L* (150-450) k/uL Potassium 3.1 L (3.5-5.1) mmol/L Chloride 114 H (98-107) mmol/L Carbon Dioxide 19 L (22-30) mmol/L Glucose 136 H (74-99) mg/dL Calcium 7.0 L (8.4-10.2) mg/dL Microbiology - Last 24 Hours (Table) 03/26/23 13:19 Blood Culture Gram Stain - Preliminary Blood Assessment and Plan Assessment: Impression: Acute neutropenic fever Acute pancytopenia, chemotherapy induced History of right breast cancer Sepsis and bacteremia Recommendation: Continue to monitor the patient in the ICU Continue broad-spectrum antibiotics including Zosyn and daptomycin Final results on the blood cultures are pending Pancytopenia is being addressed by oncology GI prophylaxis with pantoprazole Continue to monitor daily CBC We will continue to follow Time with Patient: Less than 30
--- NOTE | 2023-03-28 11:42 | P.PN ---
Subjective Progress Note Date: 03/28/23 Principal diagnosis: breast cancer, fever Patient seen today in the ICU. She reports feeling significantly improved. Patient states she has been tolerating oral intake well. Denies nausea vomiting. Denies pain. Patient afebrile Objective - Vital Signs Vital signs: Vital Signs Temp 97.7 F 03/28/23 04:00 Pulse 79 03/28/23 07:00 Resp 9 L 03/28/23 07:00 BP 130/91 03/28/23 07:00 Pulse Ox 98 03/28/23 07:00 FiO2 Intake & Output 03/27/23 03/28/23 03/28/23 18:59 06:59 18:59 Intake Total 3180 2240 130 Output Total 900 1425 0 Balance 2280 815 130 Weight 112.1 kg 118 kg Intake: IV 1810 1700 130 0.9% NS @ KVO 50 40 DAPTOmycin 500 mg In 100 Sodium Chloride 0.9% 50 ml @ 100 mls/hr IVPB Q24H [facility] Rx#:[id number] Piperacillin-Tazobactam 3 200 .375 gm In Sodium Chloride 0.9% 100 ml @ 25 mls/hr IVPB Q8HR [facility] Rx# :[id number] Sodium Chloride 0.9% 1, 1560 1560 130 000 ml @ 130 mls/hr IV . Q7H42M [facility] Rx#:[id number] Oral 1370 540 Output: Urine 600 1425 0 Stool 300 Other: Voiding Method Bedside Commode Bedside Commode # Voids 1 # Bowel Movements 1 1 - Constitutional General appearance: Present: no acute distress, obese - EENT Eyes: Present: anicteric sclerae, EOMI ENT: Present: hearing grossly normal - Respiratory Details: breathing is even and unlabored - Cardiovascular Details: skin warm and dry - Integumentary Integumentary: Present: pale. Absent: cyanotic, jaundiced - Neurologic Neurologic Comment(s): grossly intact - Musculoskeletal Musculoskeletal: Present: strength equal bilaterally - Psychiatric Psychiatric: Present: A&O x's 3, appropriate affect, intact judgment & insight - Labs CBC & Chem 7: 03/28/23 04:19 03/28/23 05:29 Labs: Abnormal Lab Results - Last 24 Hours (Table) 03/28/23 03/28/23 Range/Units 04:19 05:29 WBC 0.4 L* (3.8-10.6) k/uL RBC 2.38 L (3.80-5.40) m/uL Hgb 7.3 L (11.4-16.0) gm/dL Hct 21.3 L (34.0-46.0) % Plt Count 7 L* (150-450) k/uL Potassium 3.1 L (3.5-5.1) mmol/L Chloride 114 H (98-107) mmol/L Carbon Dioxide 19 L (22-30) mmol/L Glucose 136 H (74-99) mg/dL Calcium 7.0 L (8.4-10.2) mg/dL Microbiology - Last 24 Hours (Table) 03/26/23 13:19 Blood Culture Gram Stain - Preliminary Blood Assessment and Plan (1) Antineoplastic chemotherapy induced pancytopenia Current Visit: Yes Status: Acute Priority: High Code(s): D61.810 - ANTINEOPLASTIC CHEMOTHERAPY INDUCED PANCYTOPENIA; T45.1X5A - ADVERSE EFFECT OF ANTINEOPLASTIC AND IMMUNOSUP DRUGS, INIT SNOMED Code(s): 931828505897681 (2) Neutropenic fever Current Visit: Yes Status: Acute Priority: High Code(s): D70.9 - NE UTROPENIA, UNSPECIFIED; R50.81 - FEVER PRESENTING WITH CONDITIONS CLASSIFIED ELSEWHERE SNOMED Code(s): 258812049 (3) Breast cancer, right breast Current Visit: Yes Status: Chronic Priority: High Code(s): C50.911 - MALIGNANT NEOPLASM OF UNSP SITE OF RIGHT FEMALE BREAST SNOMED Code(s): 970976442 Plan: #Neutropenic fever with persistent nausea and vomiting -Presented with Tmax 103.6 F. S/p cycle 3 of doxorubicin/cyclophosphamide/pembrolizumab with nuelasta -Chest x-ray with no acute infectious process identified and no mucositis on exam -In addition, she has persistent nausea, vomiting, dizziness, and lightheadedness in the presence of low cortisol of 0.3 seen in clinic -Given the low cortisol with her clinical signs and symptoms, there is concern for adrenal insufficiency secondary to pembrolizumab -As thyroid profile is normal, there is no concern for central hypophysitis -Stress dose steroid hydrocortisone 100 mg IV given on presentation with hydrocortisone 50 mg IV every 8 hours for adrenal insufficiency treatment -Blood culture gram stain positive. Urine culture and stool pending. Continues on IV abx, ID following -Reports significant improvement in symptoms, afebrile x 36 hours #Chemotherapy-induced pancytopenia -She is currently day 10 cycle 3 of doxorubicin/cyclophosphamide/pembrolizumab -Her pancytopenia secondary to doxorubicin/cyclophosphamide chemotherapy -S/p 1 unit PRBCs and platelets. Platelets 7,000 today, additional unit of platelets ordered -WBC 400. Will add granix daily for goal of ANC greater than 1000 -CBC with differential daily. Transfuse for hemoglobin less than rectal to 7 or symptomatic anemia and platelet count less than 10,000 and/or bleeding #Stage IIIA triple negative breast cancer of the right breast -Underwent 4 cycles of neoadjuvant carboplatin/paclitaxel/pembrolizumab from 10/22/2022 through 01/14/2023 -She initiated cycle 1 of neoadjuvant doxorubicin/cyclophosphamide/Keytruda on 01/21/2023 -Cycle 2 was complicated by neutropenic fever secondary to COVID-19 along with prolonged nausea and weakness -Cycle 3 on 03/18/2023 at 20% reduction of doxorubicin/cyclophosphamide -There is concern for pembrolizumab induced adrenal insufficiency -We will plan on omitting cycle 4 of doxorubicin/cyclophosphamide/pembrolizumab and proceeding to surgery following adequate recovery outpatient
--- NOTE | 2023-03-28 12:19 | P.PN ---
Subjective Progress Note Date: 03/28/23 she is a 43-year-old lady with past medical significant for breast cancer on neoadjuvant chemo immunotherapy,recently completed cycle 3 of Adriamycin/cyclophosphamide/pembrolizumab on 03/18/2023 presented to the ER because of feeling of dizziness and fevers. Patient was admitted to hospital with similar complaints on 02/11/23 at which time patient was given prophylactic antibiotics and Neupogen. Patient was being followed up outpatient by hematology, patient was complaining of lightheadedness and was having fevers, in the clinic was found to be hypotensive with blood pressure in his 70s systolic. Patient was sent to the ER where initial temperature was 103.6. Initial lab work done in the ER showed WBC 0.6, hemoglobin 8.7, platelet count is 11, sodium 133, potassium 3.6, BUN 12, creatinine 0.87 Chest x-ray done in the ER showed no acute process Patient was admitted to ICU 03/28. Patient seen and examined. WBC 0.4, hemoglobin 7.3, platelet count 7, sodium 140, potassium 3.1, calcium 7. Potassium replacement ordered. Patient started on Neupogen, getting platelet transfusion REVIEW OF SYSTEMS: CONSTITUTIONAL: No fever, no malaise,. CARDIOVASCULAR: No chest pain, no palpitations, no syncope. PULMONARY: No shortness of breath, no cough, GASTROINTESTINAL: No diarrhea, no nausea, no vomiting, no abdominal pain. NEUROLOGICAL: No headaches, no weakness, PHYSICAL EXAMINATION: GENERAL: The patient is alert and oriented x3, not in any acute distress. Well developed, well nourished. HEENT: Pupils are round and equally reacting to light. EOMI. No scleral icterus. No conjunctival pallor. Normocephalic, atraumatic. No pharyngeal erythema. No thyromegaly. CARDIOVASCULAR: S1 and S2 present. No murmurs, rubs, or gallops. PULMONARY: Chest is clear to auscultation, no wheezing or crackles. ABDOMEN: Soft, nontender, nondistended, normoactive bowel sounds. No palpable organomegaly. MUSCULOSKELETAL: No joint swelling or deformity. EXTREMITIES: No cyanosis, clubbing, or pedal edema. NEUROLOGICAL: Gross neurological examination did not reveal any focal deficits. SKIN: No rashes. Assessment and plan Neutropenic fevers Pancytopenia History of breast cancer Hypokalemia Monitor vital signs Monitor CBC Monitor CMP Continue telemetry monitoring Follow-up on blood cultures Continue IV fluids Continue antiemetics Continue IV Zosyn and daptomycin. Hematology oncology ordered Neupogen, ordered platelet transfusion Follow-up in [place] recs Critical care following Labs and medication were reviewed.. Continue same treatment. Continue with symptomatic treatment. Resume home medication. Monitor labs and vitals. DVT and GI prophylaxis. Further recommendations as per clinical course of the patient Dictation was produced using [employer] dictation software. please excuse any grammatical, word or spelling errors. Objective - Vital Signs Vital signs: Vital Signs Temp 97.7 F 03/28/23 04:00 Pulse 79 03/28/23 07:00 Resp 9 L 03/28/23 07:00 BP 130/91 03/28/23 07:00 Pulse Ox 98 03/28/23 07:00 FiO2 Intake & Output 03/27/23 03/28/23 03/28/23 18:59 06:59 18:59 Intake Total 3180 2240 130 Output Total 900 1425 0 Balance 2280 815 130 Weight 112.1 kg 118 kg Intake: IV 1810 1700 130 0.9% NS @ KVO 50 40 DAPTOmycin 500 mg In 100 Sodium Chloride 0.9% 50 ml @ 100 mls/hr IVPB Q24H [facility] Rx#:[id number] Piperacillin-Tazobactam 3 200 .375 gm In Sodium Chloride 0.9% 100 ml @ 25 mls/hr IVPB Q8HR [facility] Rx# :[id number] Sodium Chloride 0.9% 1, 1560 1560 130 000 ml @ 130 mls/hr IV . Q7H42M [facility] Rx#:[id number] Oral 1370 540 Output: Urine 600 1425 0 Stool 300 Other: Voiding Method Bedside Commode Bedside Commode # Voids 1 # Bowel Movements 1 1 - Labs CBC & Chem 7: 03/28/23 04:19 03/28/23 05:29 Labs: Abnormal Lab Results - Last 24 Hours (Table) 03/28/23 03/28/23 Range/Units 04:19 05:29 WBC 0.4 L* (3.8-10.6) k/uL RBC 2.38 L (3.80-5.40) m/uL Hgb 7.3 L (11.4-16.0) gm/dL Hct 21.3 L (34.0-46.0) % Plt Count 7 L* (150-450) k/uL Potassium 3.1 L (3.5-5.1) mmol/L Chloride 114 H (98-107) mmol/L Carbon Dioxide 19 L (22-30) mmol/L Glucose 136 H (74-99) mg/dL Calcium 7.0 L (8.4-10.2) mg/dL Microbiology - Last 24 Hours (Table) 03/26/23 13:19 Blood Culture Gram Stain - Preliminary Blood
[2023-03-28] MEDS: NYSTATIN 100,000 UNIT/ML SUSP 500,000 UNIT/5 ML CUP PO SCH ×3 (14:42→21:03)
--- NOTE | 2023-03-28 15:46 | P.PN ---
Subjective Progress Note Date: 03/28/23 Principal diagnosis: Sepsis/febrile neutropenia Patient is a 43-year-old female with a past medical history significant for stage IIIa breast cancer right-sided currently on neoadjuvant chemoimmunotherapy last chemo was about a week ago presenting to the hospital for evaluation of fever. On today's evaluation there is 03/28/2023 patient is afebrile for more than 24 hours now and patient is breathing comfortably on room air, patient denies having any chest pain or shortness with occasional cough no abdominal pain no further vomiting, no worsening diarrhea as a complaining of some sore throat did not have any rash or tongue swelling Patient did have a white count slightly up to 0.4 creatinine is 0.54 stool for C. difficile is negative blood cultures so far pending Objective - Vital Signs Vital signs: Vital Signs Temp 97.7 F 03/28/23 08:00 Pulse 69 03/28/23 13:00 Resp 12 03/28/23 13:00 BP 126/75 03/28/23 13:00 Pulse Ox 98 03/28/23 13:00 FiO2 Intake & Output 03/27/23 03/28/23 03/28/23 18:59 06:59 18:59 Intake Total 3180 2240 780 Output Total 900 1425 0 Balance 2280 815 780 Weight 112.1 kg 118 kg Intake: IV 1810 1700 780 0.9% NS @ KVO 50 40 DAPTOmycin 500 mg In 100 Sodium Chloride 0.9% 50 ml @ 100 mls/hr IVPB Q24H [facility] Rx#:[id number] Piperacillin-Tazobactam 3 200 .375 gm In Sodium Chloride 0.9% 100 ml @ 25 mls/hr IVPB Q8HR [facility] Rx# :[id number] Sodium Chloride 0.9% 1, 1560 1560 780 000 ml @ 130 mls/hr IV . Q7H42M [facility] Rx#:[id number] Oral 1370 540 Output: Urine 600 1425 0 Stool 300 Other: Voiding Method Bedside Commode Bedside Commode Bedside Commode # Voids 1 1 # Bowel Movements 1 1 1 - Exam GENERAL DESCRIPTION: Middle-aged female up in the chair in no distress RESPIRATORY SYSTEM: Unlabored breathing , decreased breath sounds at bases HEART: S1 S2 regular rate and rhythm ,no loud murmurs ABDOMEN: Soft , no tenderness EXTREMITIES: No edema feet - Labs CBC & Chem 7: 03/28/23 04:19 03/28/23 05:29 Labs: Abnormal Lab Results - Last 24 Hours (Table) 03/28/23 03/28/23 Range/Units 04:19 05:29 WBC 0.4 L* (3.8-10.6) k/uL RBC 2.38 L (3.80-5.40) m/uL Hgb 7.3 L (11.4-16.0) gm/dL Hct 21.3 L (34.0-46.0) % Plt Count 7 L* (150-450) k/uL Potassium 3.1 L (3.5-5.1) mmol/L Chloride 114 H (98-107) mmol/L Carbon Dioxide 19 L (22-30) mmol/L Glucose 136 H (74-99) mg/dL Calcium 7.0 L (8.4-10.2) mg/dL Microbiology - Last 24 Hours (Table) 03/26/23 13:19 Blood Culture Gram Stain - Preliminary Blood Assessment and Plan (1) Neutropenic fever Current Visit: Yes Status: Acute Priority: High Code(s): D70.9 - NEUTROPENIA, UNSPECIFIED; R50.81 - FEVER PRESENTING WITH CONDITIONS CLASSIFIED ELSEWHERE SNOMED Code(s): 069908099 (2) SIRS (systemic inflammatory response syndrome) Current Visit: Yes Status: Acute Code(s): R65.10 - SIRS OF NON-INFECTIOUS ORIGIN W/O ACUTE ORGAN DYSFUNCTION SNOMED Code(s): 044763690 Plan: 1patient presented hospital with sepsis in this patient with a fever tachycardia hypertension and neutropenia source possible abdominal as the patient chest x-ray reported negative for pneumonia urine has been negative patient abdominal was soft medical examination the other like etiology could be line related sepsis the patient have history of port that was accessed yesterday 2patient did have a resolution of the fever White count is still low cultures are currently pending, stool for C. difficile is negative 3patient has been complaining of some sore throat mild thrush nystatin swish and swallow has been added 4-we will keep the patient on Zosyn and daptomycin while waiting for the culture to finalize Dictation was produced using [employer] dictation software. please excuse any grammatical, word or spelling errors. Time with Patient: Less than 30
[2023-03-28] MEDS: OLANZapine 5 MG TAB PO SCH (21:02)
[2023-03-28] MEDS: DAPTOmycin 500 MG in SODIUM CHLORIDE 0.9% 50 ML IVPB SCH (21:03)
[2023-03-29 04:30] LABS: HGB 7.6 gm/dL (11.4-16.0); MCH 30.9 pg (25.0-35.0); MCHC 34.5 g/dL (31.0-37.0); MCV 89.7 fL (80.0-100.0); Mean Platelet Volume 10.9; RBC 2.45 m/uL (3.80-5.40); RDW 15.1 % (11.5-15.5)
[2023-03-29 04:31] LABS: Platelet Count 14 k/uL (150-450); WBC 0.8 k/uL (3.8-10.6)
[2023-03-29 05:00] LABS: African American GFR (CKD) >90 (>60 ml/min/1.73 sqM); Anion Gap 8 mmol/L; Blood Urea Nitrogen 6 mg/dL (7-17); Calcium 6.9 mg/dL (8.4-10.2); Carbon Dioxide 19 mmol/L (22-30); Chloride 113 mmol/L (98-107); Glucose 108 mg/dL (74-99); Non-African American GFR(CKD) >90 (>60 ml/min/1.73 sqM); Potassium 2.9 mmol/L (3.5-5.1); Sodium 140 mmol/L (137-145)
[2023-03-29] MEDS: POTASSIUM CHLORIDE ER 20 MEQ TAB.ER PO SCH ×4 (06:48→10:46)
[2023-03-29] MEDS: SODIUM CHLORIDE 0.9% 1,000 ML IV SCH ×2 (06:49)
[2023-03-29] MEDS: HYDROCORTISONE SUCCINATE 100 MG/2 ML VIAL IV SCH ×3 (08:57→23:14)
[2023-03-29] MEDS: NYSTATIN 100,000 UNIT/ML SUSP 500,000 UNIT/5 ML CUP PO SCH ×4 (08:57→21:25)
[2023-03-29] MEDS: PIPERACILLIN-TAZOBACTAM 3.375 GM in SODIUM CHLORIDE 0.9% 100 ML IVPB SCH ×3 (08:58→23:14)
[2023-03-29] MEDS: PANTOPRAZOLE 40 MG TABLET PO SCH (08:58)
[2023-03-29] MEDS: FILGRASTIM-SNDZ 480 MCG/0.8 ML SYRINGE SQ SCH (09:07)
[2023-03-29] MEDS: LACTOBACILLUS ACIDOPHILUS/PECT 1 EACH CAPSULE PO SCH ×3 (10:36→21:24)
--- NOTE | 2023-03-29 11:00 | P.PN ---
Subjective Progress Note Date: 03/29/23 Principal diagnosis: Neutropenic sepsis. Pancytopenia, bacteremia, neutropenia with fever This is a 43-year-old female with known history of stage IIIa triple negative breast cancer of the right breast, on neoadjuvant chemoimmunotherapy recently completed cycle 3 of Adriamycin, cyclophosphamide, pemorolizumab, on 03/18/2023. Patient came into the ER yesterday with complaining of fever, dizziness, lightheadedness, patient had similar presentation back on 02/11/2023 and she req uired 3 days of Neupogen for persistent neutropenia. Patient was seen in the clinic on 03/25 with multiple constitutional symptoms including lightheadedness and dizziness, and she was noted to have low WBC count of 0.5 with absolute neutrophilic count of 32 she was also noted to have low platelets of 15,000 and hemoglobin of 8.4. Patient was given fluids in the clinic, reevaluated again in the clinic on the day of admission, and she was found to be febrile and hypotensive with systolic pressure in the 70s hence she was advised to go to the ER. While in the ER patient was febrile with a temp of 103.6, she was pancytopenic, she received just over 2 L of normal saline bolus, placed empirically on antibiotics in the form of vancomycin and Zosyn, admitted to the ICU, and this consult was initiated. Today, the patient is hemodynamically stable, she is feeling much better compared to how she felt in the last couple of days. She has a minimal diarrhea, no cough no wheezing no shortness of b reath no chest pain follow-up CBC today showed WBC count of 0.2 hemoglobin 8.1 and platelets are down to 10,000. Cultures are pending the rest of the labs are unremarkable including a basic metabolic profile and renal profile. Chest x-ray showed no evidence of active disease. he turned level however is elevated at 0.60 patient was seen by infectious disease on consultation, discontinued vancomycin, kept her on daptomycin and Zosyn. Seen today on 03/28/2023, patient remains in the ICU, feeling fine, she is not in any distress, however her CBC remains quite abnormal and her blood cultures are positive. Patient remains on Zosyn and daptomycin has diabetes and 0.4 hemoglobin 7.3 platelets are 7000 and the patient will likely receive more platelets and packed RBCs from oncology on the case. Blood cultures have been reported positive, but not specific. Infectious diseases handling the si tuation. Pulmonary-cook no cough no wheezing no shortness of breath. Progress note dated 03/29/2023. 43-year-old female with a history of breast cancer, status post chemotherapy, last received, on March 18. The patient was admitted to the hospital on March 25, systemic inflammatory response syndrome, neutropenic sepsis, and blood cultures positive for gram-negative bacilli. She remains currently on daptomycin and Zosyn. She's on room air. She's getting saline at 130 mL an hour. Clinically looking very well. Current labs include a white count of 0.8, hemoglobin 7.6, hematocrit 22, and a platelet count of 14,000. Sodium 140, potassium 2.9, chlorides 113, CO2 19, BUN 6, creatinine 0.50. Blood cultures are currently pending. Chest x-ray was normal. Objective - Vital Signs Vital signs: Vital Signs Temp 97.5 F L 03/29/23 08:00 Pulse 89 03/29/23 10:00 Resp 15 03/29/23 10:00 BP 110/64 03/29/23 10:00 Pulse Ox 98 03/29/23 10:00 FiO2 Intake & Output 03/28/23 03/29/23 03/29/23 18:59 06:59 18:59 Intake Total 1974 1580 430 Output Total 500 1950 0 Balance 1474 -370 430 Intake: IV 1690 1580 230 DAPTOmycin 500 mg In 50 Sodium Chloride 0.9% 50 ml @ 100 mls/hr IVPB Q24H [facility] Rx#:[id number] Piperacillin-Tazobactam 3 100 100 .375 gm In Sodium Chloride 0.9% 100 ml @ 25 mls/hr IVPB Q8HR [facility] Rx# :[id number] Sodium Chloride 0.9% 1, 1690 1430 130 000 ml @ 130 mls/hr IV . Q7H42M [facility] Rx#:[id number] Oral 200 Blood Product 284 Platelet Pheresis Pas 284 Psoralen Unit [id number] Output: Urine 500 1950 0 Other: Voiding Method Bedside Commode Bedside Commode Bedside Commode # Voids 1 1 # Bowel Movements 1 1 1 - Exam No acute distress, oriented 3. Currently on room air. HEENT examination is grossly unremarkable. Neck supple. Full range of motion. No adenopathy thyromegaly or neck vein distention. Cardiovascular examination reveals regular rhythm rate. S1-S2 normal. No S3 or S4. No discernible murmur noted. Heart rate 89 bpm. Lungs reveal clear breath sounds. Breath sounds are equal bilaterally. No adventitious lung sounds including wheezes rhonchi or crackles. Room air saturation is 98%. Abdomen is soft, with bowel sounds. No masses or tenderness. Extremities are intact. No cyanosis or clubbing. Minimal edema. Skin is without rash or lesion. Neurologic examination is brief but nonfocal. - Labs CBC & Chem 7: 03/29/23 03:14 03/29/23 03:14 Labs: Abnormal Lab Results - Last 24 Hours (Table) 03/28/23 03/29/23 03/29/23 Range/Units 19:13 03:14 03:14 WBC 0.8 L* (3.8-10.6) k/uL RBC 2.45 L (3.80-5.40) m/uL Hgb 7.6 L (11.4-16.0) gm/dL Hct 22.0 L (34.0-46.0) % Plt Count 14 L* D (150-450) k/uL Potassium 2.9 L 2.9 L (3.5-5.1) mmol/L Chloride 113 H (98-107) mmol/L Carbon Dioxide 19 L (22-30) mmol/L BUN 6 L (7-17) mg/dL Creatinine 0.50 L (0.52-1.04) mg/dL Glucose 108 H (74-99) mg/dL Calcium 6.9 L (8.4-10.2) mg/dL Microbiology - Last 24 Hours (Table) 03/27/23 14:10 Urine Culture - Final Urine,Clean Catch Assessment and Plan Assessment: Acute neutropenic sepsis. Acute pancytopenia, secondary to chemotherapy, 03/18/2023. Blood cultures positive for gram-negative bacilli, yet to be fully identified. History of right breast cancer, S/P chemotherapy March 18. Sepsis with bacteremia. Plan: Plan dated 03/29/2023. The patient remains on good antibiotics in the form of daptomycin and Zosyn. She's getting saline at 130 mL an hour, but is eating and drinking well, so the IV will be cut back to KVO. Preliminary blood cultures are positive for gram- negative bacilli. It is yet to be identified. The patient was admitted on March 25. Her last chemotherapy was in March labs, x-rays, and medications are reviewed. Prognosis is certainly guarded. We will continue to follow and make recommendations along the way. Time with Patient: Greater than 30
--- NOTE | 2023-03-29 14:44 | P.PN ---
Subjective Progress Note Date: 03/29/23 she is a 43-year-old lady with past medical significant for breast cancer on neoadjuvant chemo immunotherapy,recently completed cycle 3 of Adriamycin/cyclophosphamide/pembrolizumab on 03/18/2023 presented to the ER because of feeling of dizziness and fevers. Patient was admitted to hospital with similar complaints on 02/11/23 at which time patient was given prophylactic antibiotics and Neupogen. Patient was being followed up outpatient by hematology, patient was complaining of lightheadedness and was having fevers, in the clinic was found to be hypotensive with blood pressure in his 70s systolic. Patient was sent to the ER where initial temperature was 103.6. Initial lab work done in the ER showed WBC 0.6, hemoglobin 8.7, platelet count is 11, sodium 133, potassium 3.6, BUN 12, creatinine 0.87 Chest x-ray done in the ER showed no acute process Patient was admitted to ICU 03/28. Patient seen and examined. WBC 0.4, hemoglobin 7.3, platelet count 7, sodium 140, potassium 3.1, calcium 7. Potassium replacement ordered. Patient started on Neupogen, getting platelet transfusion 03/29. Patient seen and examined. Tolerating diet. DC fluids. No episodes of fevers REVIEW OF SYSTEMS: CONSTITUTIONAL: No fever, no malaise,. CARDIOVASCULAR: No chest pain, no palpitations, no syncope. PULMONARY: No shortness of breath, no cough, GASTROINTESTINAL: No diarrhea, no nausea, no vomiting, no abdominal pain. NEUROLOGICAL: No headaches, no weakness, PHYSICAL EXAMINATION: GENERAL: The patient is alert and oriented x3, not in any acute distress. Well developed, well nourished. HEENT: Pupils are round and equally reacting to light. EOMI. No scleral icterus. No conjunctival pallor. Normocephalic, atraumatic. No pharyngeal erythema. No thyromegaly. CARDIOVASCULAR: S1 and S2 present. No murmurs, rubs, or gallops. PULMONARY: Chest is clear to auscultation, no wheezing or crackles. ABDOMEN: Soft, nontender, nondistended, normoactive bowel sounds. No palpable organomegaly. MUSCULOSKELETAL: No joint swelling or deformity. EXTREMITIES: No cyanosis, clubbing, or pedal edema. NEUROLOGICAL: Gross neurological examination did not reveal any focal deficits. SKIN: No rashes. Assessment and plan Neutropenic fevers Pancytopenia History of breast cancer Hypokalemia Monitor vital signs Monitor CBC Monitor CMP Continue telemetry monitoring Follow-up on blood cultures dc IV fluids Continue antiemetics Continue IV Zosyn and daptomycin. Hematology oncology following Follow-up in [place] recs Critical care following Labs and medication were reviewed.. Continue same treatment. Continue with symptomatic treatment. Resume home medication. Monitor labs and vitals. DVT and GI prophylaxis. Further recommendations as per clinical course of the patient Dictation was produced using [employer] dictation software. please excuse any grammatical, word or spelling errors. Objective - Vital Signs Vital signs: Vital Signs Temp 98.0 F 03/29/23 12:00 Pulse 69 03/29/23 14:00 Resp 20 03/29/23 14:00 BP 98/66 03/29/23 14:00 Pulse Ox 97 03/29/23 14:00 FiO2 Intake & Output 03/28/23 03/29/23 03/29/23 18:59 06:59 18:59 Intake Total 1974 1580 830 Output Total 500 1950 0 Balance 1474 -370 830 Intake: IV 1690 1580 230 DAPTOmycin 500 mg In 50 Sodium Chloride 0.9% 50 ml @ 100 mls/hr IVPB Q24H [facility] Rx#:[id number] Piperacillin-Tazobactam 3 100 100 .375 gm In Sodium Chloride 0.9% 100 ml @ 25 mls/hr IVPB Q8HR [facility] Rx# :[id number] Sodium Chloride 0.9% 1, 1690 1430 130 000 ml @ 130 mls/hr IV . Q7H42M [facility] Rx#:[id number] Oral 600 Blood Product 284 Platelet Pheresis Pas 284 Psoralen Unit [id number] Output: Urine 500 1950 0 Other: Voiding Method Bedside Commode Bedside Commode Bedside Commode # Voids 1 1 1 # Bowel Movements 1 1 1 - Labs CBC & Chem 7: 03/29/23 03:14 03/29/23 03:14 Labs: Abnormal Lab Results - Last 24 Hours (Table) 03/28/23 03/29/23 03/29/23 Range/Units 19:13 03:14 03:14 WBC 0.8 L* (3.8-10.6) k/uL RBC 2.45 L (3.80-5.40) m/uL Hgb 7.6 L (11.4-16.0) gm/dL Hct 22.0 L (34.0-46.0) % Plt Count 14 L* D (150-450) k/uL Potassium 2.9 L 2.9 L (3.5-5.1) mmol/L Chloride 113 H (98-107) mmol/L Carbon Dioxide 19 L (22-30) mmol/L BUN 6 L (7-17) mg/dL Creatinine 0.50 L (0.52-1.04) mg/dL Glucose 108 H (74-99) mg/dL Calcium 6.9 L (8.4-10.2) mg/dL Microbiology - Last 24 Hours (Table) 03/27/23 22:20 Blood Culture - Preliminary Blood 03/27/23 22:47 Blood Culture - Preliminary Blood 03/27/23 14:10 Urine Culture - Final Urine,Clean Catch
--- NOTE | 2023-03-29 15:56 | P.PN ---
Subjective Progress Note Date: 03/29/23 Principal diagnosis: Neutropenic fever, triple negative breast cancer In follow-up today patient is sitting in a chair, she reports that she is "bored". She denies any nausea or vomiting-very happy that it better. She is eating and drinking, she has not had a fever, no oral irritation, mild sore throat, no difficulty swallowing, no cough, unusual shortness of breath, abdomin al pain or cramping, acute changes in bowel or bladder habits. No pain to report Objective - Vital Signs Vital signs: Vital Signs Temp 98.0 F 03/29/23 12:00 Pulse 86 03/29/23 14:52 Resp 18 03/29/23 14:54 BP 100/62 03/29/23 14:54 Pulse Ox 100 03/29/23 14:49 FiO2 Intake & Output 03/28/23 03/29/23 03/29/23 18:59 06:59 18:59 Intake Total 1974 1580 930 Output Total 500 1950 0 Balance 1474 -370 930 Intake: IV 1690 1580 230 DAPTOmycin 500 mg In 50 Sodium Chloride 0.9% 50 ml @ 100 mls/hr IVPB Q24H [facility] Rx#:[id number] Piperacillin-Tazobactam 3 100 100 .375 gm In Sodium Chloride 0.9% 100 ml @ 25 mls/hr IVPB Q8HR [facility] Rx# :[id number] Sodium Chloride 0.9% 1, 1690 1430 130 000 ml @ 130 mls/hr IV . Q7H42M [facility] Rx#:[id number] Oral 700 Blood Product 284 Platelet Pheresis Pas 284 Psoralen Unit [id number] Output: Urine 500 1950 0 Other: Voiding Method Bedside Commode Bedside Commode Bedside Commode # Voids 1 1 1 # Bowel Movements 1 1 1 - Constitutional General appearance: Present: cooperative, no acute distress, obese - EENT EENT Comment(s): Dry mucous membranes, posterior oropharynx redness, scalloped tongue Eyes: Present: anicteric sclerae, EOMI ENT: Present: hearing grossly normal - Respiratory Respiratory: bilateral: CTA - Cardiovascular Heart sounds: normal: S1, S2 Abnormal Heart Sounds: Absent: systolic murmur, diastolic murmur, rub, S3 Gallop, S4 Gallop, click, other - Gastrointestinal General gastrointestinal: Present: normal bowel sounds, soft. Absent: absent bowel sounds, decreased bowel sounds, distended, hepatomegaly, hyperactive bowel sounds, organomegaly, rigid, scaphoid, splenomegaly, tenderness, umbilical hernia, ventral hernia - Neurologic Neurologic: Present: CNII-XII intact - Musculoskeletal Musculoskeletal: Present: strength equal bilaterally - Psychiatric Psychiatric: Present: A&O x's 3, appropriate affect, intact judgment & insight - Labs CBC & Chem 7: 03/29/23 03:14 03/29/23 03:14 Labs: Abnormal Lab Results - Last 24 Hours (Table) 03/28/23 03/29/23 03/29/23 Range/Units 19:13 03:14 03:14 WBC 0.8 L* (3.8-10.6) k/uL RBC 2.45 L (3.80-5.40) m/uL Hgb 7.6 L (11.4-16.0) gm/dL Hct 22.0 L (34.0-46.0) % Plt Count 14 L* D (150-450) k/uL Potassium 2.9 L 2.9 L (3.5-5.1) mmol/L Chloride 113 H (98-107) mmol/L Carbon Dioxide 19 L (22-30) mmol/L BUN 6 L (7-17) mg/dL Creatinine 0.50 L (0.52-1.04) mg/dL Glucose 108 H (74-99) mg/dL Calcium 6.9 L (8.4-10.2) mg/dL Microbiology - Last 24 Hours (Table) 03/27/23 22:20 Blood Culture - Preliminary Blood 03/27/23 22:47 Blood Culture - Preliminary Blood 03/27/23 14:10 Urine Culture - Final Urine,Clean Catch Assessment and Plan (1) Antineoplastic chemotherapy induced pancytopenia Current Visit: Yes Status: Acute Priority: High Code(s): D61.810 - ANTINEOPLASTIC CHEMOTHERAPY INDUCED PANCYTOPENIA; T45.1X5A - ADVERSE EFFECT OF ANTINEOPLASTIC AND IMMUNOSUP DRUGS, INIT SNOMED Code(s): 465543589574135 (2) Neutropenic fever Current Visit: Yes Status: Acute Priority: High Code(s): D70.9 - NEUTROPENIA, UNSPECIFIED; R50.81 - FEVER PRESENTING WITH CONDITIONS CLASSIFIED ELSEWHERE SNOMED Code(s): 978901451 (3) Breast cancer, right breast Current Visit: Yes Status: Chronic Priority: High Code(s): C50.911 - SUDARSHAN GNANT NEOPLASM OF UNSP SITE OF RIGHT FEMALE BREAST SNOMED Code(s): 385733498 Plan: Neutropenic fever -Secondary to chemotherapy -Continue G-CSF, WBC 0.8 today -ID following -Blood cultures positive, pending culture and sensitivity. Antibiotics prescribed Pancytopenia -Chemotherapy-induced -Status post 1 unit single donor platelets yesterday for platelet count of 7000, platelets 14,000 today. Transfuse for platelets less than 10,000 or if symptomatic -WBC 0.8, continue G-CSF -Hemoglobin 7.6, transfuse for hemoglobin less than 7 or if symptomatic. Triple negative breast cancer -Patient has completed 4 cycles carbo/keytruda with weekly Taxol and 3/4 cycles of A/C/keytruda -Secondary to Persistent and progressive toxicities, plan is to proceed to surgery, minus the final cycle of A/C/keytruda -Primary Oncologist will discuss the case with Surgeon. Patient is considering plastic surgery simultaneously, she would like a second opinion. Referral being sent for her. Doctor attests: I performed a history and physical examination of this patient, developed impression and plan of care. Discussed with dictator. I agree with d ictators note, documented as a scribe.
[2023-03-29] MEDS: POTASSIUM CHLORIDE 20 MEQ in WATER FOR INJECTION 1 100ML.BAG IVPB SCH ×2 (16:29→18:36)
[2023-03-29] MEDS: MAG HYDROX/AL HYDROX/SIMETH 30 ML, diphenhydrAMINE ELIXIR 75 MG, LIDOCAINE VISCOUS 2% 3... PO SCH ×9 (16:30→21:28)
[2023-03-29] MEDS: SALT AND SODA MOUTHWASH 1,000 ML PO SCH ×3 (18:36→23:17)
[2023-03-29] MEDS: DAPTOmycin 500 MG in SODIUM CHLORIDE 0.9% 50 ML IVPB SCH (21:24)
[2023-03-30 04:24] LABS: Basophils % (A) 0 %; Eosinophils % (A) 0 %; HCT 22.4 % (34.0-46.0); HGB 7.7 gm/dL (11.4-16.0); Lymphocytes # (A) 0.3 k/uL (1.0-4.8); Lymphocytes % (A) 18 %; MCH 30.2 pg (25.0-35.0); MCHC 34.2 g/dL (31.0-37.0); MCV 88.4 fL (80.0-100.0); Mean Platelet Volume 10.4; Monocytes # (A) 0.1 k/uL (0-1.0); Monocytes % (A) 5 %; Neutrophils # (A) 1.1 k/uL (1.3-7.7); Neutrophils % (A) 75 %; RBC 2.54 m/uL (3.80-5.40); RDW 14.9 % (11.5-15.5); WBC 1.5 k/uL (3.8-10.6)
[2023-03-30 04:34] LABS: Platelet Count 15 k/uL (150-450)
[2023-03-30 04:52] LABS: African American GFR (CKD) >90 (>60 ml/min/1.73 sqM); Anion Gap 8 mmol/L; Blood Urea Nitrogen 4 mg/dL (7-17); Calcium 7.1 mg/dL (8.4-10.2); Carbon Dioxide 21 mmol/L (22-30); Chloride 112 mmol/L (98-107); Glucose 97 mg/dL (74-99); Non-African American GFR(CKD) >90 (>60 ml/min/1.73 sqM); Potassium 2.8 mmol/L (3.5-5.1); Sodium 141 mmol/L (137-145)
[2023-03-30] MEDS: SALT AND SODA MOUTHWASH 1,000 ML PO SCH ×2 (06:58→11:01)
[2023-03-30] MEDS: POTASSIUM CHLORIDE ER 20 MEQ TAB.ER PO SCH ×5 (07:13→14:59)
[2023-03-30] MEDS: MAG HYDROX/AL HYDROX/SIMETH 30 ML, diphenhydrAMINE ELIXIR 75 MG, LIDOCAINE VISCOUS 2% 3... PO SCH ×3 (08:08)
[2023-03-30 08:29] VITALS: BP 125/87; PULSE 77; RESP 16; TEMP 97.7
[2023-03-30] MEDS: LACTOBACILLUS ACIDOPHILUS/PECT 1 EACH CAPSULE PO SCH (08:34)
[2023-03-30] MEDS: NYSTATIN 100,000 UNIT/ML SUSP 500,000 UNIT/5 ML CUP PO SCH ×2 (08:34→13:10)
[2023-03-30] MEDS: PIPERACILLIN-TAZOBACTAM 3.375 GM in SODIUM CHLORIDE 0.9% 100 ML IVPB SCH (08:34)
[2023-03-30] MEDS: PANTOPRAZOLE 40 MG TABLET PO SCH (08:34)
[2023-03-30] MEDS: HYDROCORTISONE SUCCINATE 100 MG/2 ML VIAL IV SCH (08:35)
--- NOTE | 2023-03-30 10:51 | P.PN ---
Subjective Progress Note Date: 03/30/23 Principal diagnosis: Neutropenic sepsis. Pancytopenia, bacteremia, neutropenia with fever This is a 43-year-old female with known history of stage IIIa triple negative breast cancer of the right breast, on neoadjuvant chemoimmunotherapy recently completed cycle 3 of Adriamycin, cyclophosphamide, pemorolizumab, on 03/18/2023. Patient came into the ER yesterday with complaining of fever, dizziness, lightheadedness, patient had similar presentation back on 02/11/2023 and she req uired 3 days of Neupogen for persistent neutropenia. Patient was seen in the clinic on 03/25 with multiple constitutional symptoms including lightheadedness and dizziness, and she was noted to have low WBC count of 0.5 with absolute neutrophilic count of 32 she was also noted to have low platelets of 15,000 and hemoglobin of 8.4. Patient was given fluids in the clinic, reevaluated again in the clinic on the day of admission, and she was found to be febrile and hypotensive with systolic pressure in the 70s hence she was advised to go to the ER. While in the ER patient was febrile with a temp of 103.6, she was pancytopenic, she received just over 2 L of normal saline bolus, placed empirically on antibiotics in the form of vancomycin and Zosyn, admitted to the ICU, and this consult was initiated. Today, the patient is hemodynamically stable, she is feeling much better compared to how she felt in the last couple of days. She has a minimal diarrhea, no cough no wheezing no shortness of b reath no chest pain follow-up CBC today showed WBC count of 0.2 hemoglobin 8.1 and platelets are down to 10,000. Cultures are pending the rest of the labs are unremarkable including a basic metabolic profile and renal profile. Chest x-ray showed no evidence of active disease. he turned level however is elevated at 0.60 patient was seen by infectious disease on consultation, discontinued vancomycin, kept her on daptomycin and Zosyn. Seen today on 03/28/2023, patient remains in the ICU, feeling fine, she is not in any distress, however her CBC remains quite abnormal and her blood cultures are positive. Patient remains on Zosyn and daptomycin has diabetes and 0.4 hemoglobin 7.3 platelets are 7000 and the patient will likely receive more platelets and packed RBCs from oncology on the case. Blood cultures have been reported positive, but not specific. Infectious diseases handling the si tuation. Pulmonary-cook no cough no wheezing no shortness of breath. Progress note dated 03/29/2023. 43-year-old female with a history of breast cancer, status post chemotherapy, last received, on March 18. The patient was admitted to the hospital on March 25, systemic inflammatory response syndrome, neutropenic sepsis, and blood cultures positive for gram-negative bacilli. She remains currently on daptomycin and Zosyn. She's on room air. She's getting saline at 130 mL an hour. Clinically looking very well. Current labs include a white count of 0.8, hemoglobin 7.6, hematocrit 22, and a platelet count of 14,000. Sodium 140, potassium 2.9, chlorides 113, CO2 19, BUN 6, creatinine 0.50. Blood cultures are currently pending. Chest x-ray was normal. Progress note dated 03/30/2023. 43-year-old female with history of breast cancer, status post chemotherapy, last received on March 18. She was admitted to the hospital on March 25, systemic inflammatory response syndrome, neutropenic sepsis, and blood cultures positive for gram-negative bacilli. She currently is on daptomycin and Zosyn. She's getting saline at KVO. She's on no supplemental oxygen. The patient has been relatively stable over the last day or so. White count is 1.5, hemoglobin 7.7, hematocrit 22.4, and a platelet count of 15,000. Sodium 141, potassium 2.8, chlorides 112, CO2 21, BUN 4, creatinine 0.5. Positive blood cultures have not yet been finalized. Objective - Vital Signs Vital signs: Vital Signs Temp 97.7 F 03/30/23 08:00 Pulse 77 03/30/23 08:00 Resp 16 03/30/23 08:00 BP 125/87 03/30/23 08:00 Pulse Ox 98 03/30/23 08:00 FiO2 Intake & Output 03/29/23 03/30/23 03/30/23 18:59 06:59 18:59 Intake Total 1430 420 130 Output Total 0 600 0 Balance 1430 -180 130 Weight 117.4 kg Intake: IV 330 370 130 0.9% NS @ KVO 220 30 DAPTOmycin 500 mg In 50 Sodium Chloride 0.9% 50 ml @ 100 mls/hr IVPB Q24H [facility] Rx#:[id number] Piperacillin-Tazobactam 3 200 100 100 .375 gm In Sodium Chloride 0.9% 100 ml @ 25 mls/hr IVPB Q8HR [facility] Rx# :[id number] Sodium Chloride 0.9% 1, 130 000 ml @ 130 mls/hr IV . Q7H42M [facility] Rx#:[id number] Intake, IV Titration 100 Amount Potassium Chloride 20 meq 100 In Water For Injection 1 100ml.bag @ 50 mls/hr IVPB Q2H [facility] Rx#: [id number] Oral 1000 50 Output: Urine 0 600 0 Other: Voiding Method Bedside Commode Toilet Toilet Bedside Commode # Voids 1 1 # Bowel Movements 1 1 - Exam No acute distress, oriented 3. Currently on room air. HEENT examination is grossly unremarkable. Neck supple. Full range of motion. No adenopathy thyromegaly or neck vein distention. Cardiovascular examination reveals regular rhythm rate. S1-S2 normal. No S3 or S4. No discernible murmur noted. Heart rate 77 bpm. Lungs reveal clear breath sounds. Breath sounds are equal bilaterally. No adventitious lung sounds including wheezes rhonchi or crackles. Room air saturation is 99 %. Abdomen is soft, with bowel sounds. No masses or tenderness. Extremities are intact. No cyanosis or clubbing. Minimal edema. Skin is without rash or lesion. Neurologic examination is brief but nonfocal. - Labs CBC & Chem 7: 03/30/23 03:38 03/30/23 03:38 Labs: Abnormal Lab Results - Last 24 Hours (Table) 03/29/23 03/30/23 03/30/23 Range/Units 15:19 03:38 03:38 WBC 1.5 L (3.8-10.6) k/uL RBC 2.54 L (3.80-5.40) m/uL Hgb 7.7 L (11.4-16.0) gm/dL Hct 22.4 L (34.0-46.0) % Plt Count 15 L* (150-450) k/uL Neutrophils # 1.1 L (1.3-7.7) k/uL Lymphocytes # 0.3 L (1.0-4.8) k/uL Potassium 3.0 L 2.8 L (3.5-5.1) mmol/L Chloride 112 H (98-107) mmol/L Carbon Dioxide 21 L (22-30) mmol/L BUN 4 L (7-17) mg/dL Creatinine 0.50 L (0.52-1.04) mg/dL Calcium 7.1 L (8.4-10.2) mg/dL Microbiology - Last 24 Hours (Table) 03/27/23 22:20 Blood Culture - Preliminary Blood 03/27/23 22:47 Blood Culture - Preliminary Blood Assessment and Plan Assessment: Acute neutropenic sepsis. Acute pancytopenia, secondary to chemotherapy, 03/18/2023. Blood cultures positive for gram-negative bacilli, yet to be fully identified. History of right breast cancer, S/P chemotherapy March 18. Sepsis with bacteremia. Plan: Plan dated 03/29/2023. The patient remains on good antibiotics in the form of daptomycin and Zosyn. She's getting saline at 130 mL an hour, but is eating and drinking well, so the IV will be cut back to KVO. Preliminary blood cultures are positive for gram- negative bacilli. It is yet to be identified. The patient was admitted on March 25. Her last chemotherapy was in March labs, x-rays, and medications are reviewed. Prognosis is certainly guarded. We will continue to follow and make recommendations along the way. Plan dated 03/30/2023. The patient has been stable over the last 24 hours. Blood counts are improving. She remains on daptomycin and Zosyn. The patient is getting 0.9 at KVO. She's not requiring any supplemental oxygen. She continues on daptomycin and Zosyn. Labs, x-rays, and medications are all reviewed. In my opinion, the patient is stable for transfer out of the intensive care unit. She can go to the cancer floor. No additional recommendations are made. Time with Patient: Less than 30
[2023-03-30 11:06] VITALS: BMI 35.1
--- NOTE | 2023-03-30 13:24 | P.DS ---
Providers Date of admission: 03/26/23 14:23 Expected date of discharge: 03/30/23 Attending physician: Amrita Tinoco Consults: 03/26/23 14:05 Consult Physician Routine Consulting Provider: Clover Johnson Consult Reason/Comments: breast cancer Do you want consulting provider notified?: Already Contacted 03/26/23 14:23 Consult Physician Stat Consulting Provider: Lashanda Brady Consult Reason/Comments: icu patient Do you want consulting provider notified?: Already Contacted 03/26/23 14:30 Consult Physician Routine Consulting Provider: Cookie Deal Consult Reason/Comments: fever Do you want consulting provider notified?: Yes Primary care physician: Yonas Cline [facility] Course: Discharge diagnoses; Neutropenic fevers Pancytopenia History of breast cancer Hypokalemia Hospital course; she is a 43-year-old lady with past medical significant for breast cancer on neoadjuvant chemo immunotherapy,recently completed cycle 3 of Adriamycin/cyclophosphamide/pembrolizumab on 03/18/2023 presented to the ER because of feeling of dizziness and fevers. Patient was admitted to hospital w ith similar complaints on 02/11/23 at which time patient was given prophylactic antibiotics and Neupogen. Patient was being followed up outpatient by hematology, patient was complaining of lightheadedness and was having fevers, in the clinic was found to be hypotensive with blood pressure in his 70s systolic. Patient was sent to the ER where initial temperature was 103.6. Initial lab work done in the ER showed WBC 0.6, hemoglobin 8.7, platelet count is 11, sodium 133, potassium 3.6, BUN 12, creatinine 0.87 Chest x-ray done in the ER showed no acute process Patient was admitted to ICU 03/28. Patient seen and examined. WBC 0.4, hemoglobin 7.3, platelet count 7, sodium 140, potassium 3.1, calcium 7. Potassium replacement ordered. Patient started on Neupogen, getting platelet transfusion 03/29. Patient seen and examined. Tolerating diet. DC fluids. No episodes of fevers 03/30. Patient seen and examined. wBC 1.5, hemoglobin 7.7, platelet count 15. Potassium level was 2.8, replacement ordered. ID recommended discharging patient on oral Augmentin for 1 week. Patient being discharged in stable condition PHYSICAL EXAMINATION: GENERAL: The patient is alert and oriented x3, not in any acute distress. Well developed, well nourished. HEENT: Pupils are round and equally reacting to light. EOMI. No scleral icterus. No conjunctival pallor. Normocephalic, atraumatic. No pharyngeal erythema. No thyromegaly. CARDIOVASCULAR: S1 and S2 present. No murmurs, rubs, or gallops. PULMONARY: Chest is clear to auscultation, no wheezing or crackles. ABDOMEN: Soft, nontender, nondistended, normoactive bowel sounds. No palpable organomegaly. MUSCULOSKELETAL: No joint swelling or deformity. EXTREMITIES: No cyanosis, clubbing, or pedal edema. NEUROLOGICAL: Gross neurological examination did not reveal any focal deficits. SKIN: No rashes. Dictation was produced using [employer] dictation software. please excuse any grammatical, word or spelling errors. Patient Condition at Discharge: Good Plan - Discharge Summary Discharge Rx Participant: Yes New Discharge Prescriptions: New Amoxic-Pot Clav 875-125Mg [Augmentin 875-125] 1 tab PO Q12HR 7 Days #14 tab Hydrocortisone [Cortef] 10 mg PO HS #6 tab Continue Multivitamins, Thera [Multivitamin (formulary)] 1 tab PO DAILY Loperamide [Imodium] 2 mg PO QID PRN #20 cap PRN Reason: Diarrhea Ergocalciferol [Vitamin D2 (1250 Mcg = 78603 Iu)] 1,250 mcg PO WE Triamcinolone 0.1% Cream [Kenalog 0.1% Cream] 1 applic TOPICAL TID PRN PRN Reason: Rash Prochlorperazine [Compazine] 10 mg PO Q6H PRN PRN Reason: Nausea ondansetron HCL [Zofran] 8 mg PO Q8H PRN PRN Reason: Nausea OLANZapine [ZyPREXA] 5 mg PO HS Discharge Medication List Ergocalciferol [Vitamin D2 (1250 Mcg = 59991 Iu)] 1,250 mcg PO WE 10/15/22 [History] Multivitamins, Thera [Multivitamin (formulary)] 1 tab PO DAILY 10/15/22 [History] Prochlorperazine [Compazine] 10 mg PO Q6H PRN 02/18/23 [History] Triamcinolone 0.1% Cream [Kenalog 0.1% Cream] 1 applic TOPICAL TID PRN 02/18/23 [History] Loperamide [Imodium] 2 mg PO QID PRN #20 cap 02/23/23 [Rx] OLANZapine [ZyPREXA] 5 mg PO HS 03/26/23 [History] ondansetron HCL [Zofran] 8 mg PO Q8H PRN 03/26/23 [History] Amoxic-Pot Clav 875-125Mg [Augmentin 875-125] 1 tab PO Q12HR 7 Days #14 tab 03/30/23 [Rx] Hydrocortisone [Cortef] 10 mg PO HS #6 tab 03/30/23 [Rx] Follow up Appointment(s)/Referral(s): Clover Johnson MD [Family Provider] - 04/16/23 11:15 am (Please come to [place] office at the [facility] starting this Monday 04/02 for repeat labs. Staff will call you with times. ) Yonas Dalal III, MD [Primary Care Provider] - 1-2 days Discharge Disposition: HOME SELF-CARE
--- NOTE | 2023-03-30 13:33 | P.PN ---
Subjective Progress Note Date: 03/30/23 Principal diagnosis: breast cancer, fever Patient seen today in the ICU. She reports feeling significantly improved. Patient states she has been tolerating oral intake well. Denies nausea vomiting. Denies pain. Patient afebrile Objective - Vital Signs Vital signs: Vital Signs Temp 97.7 F 03/30/23 08:00 Pulse 77 03/30/23 08:00 Resp 16 03/30/23 08:00 BP 125/87 03/30/23 08:00 Pulse Ox 98 03/30/23 08:00 FiO2 Intake & Output 03/29/23 03/30/23 03/30/23 18:59 06:59 18:59 Intake Total 1430 420 140 Output Total 0 600 0 Balance 1430 -180 140 Weight 117.4 kg 117.4 kg Intake: IV 330 370 140 0.9% NS @ KVO 220 40 DAPTOmycin 500 mg In 50 Sodium Chloride 0.9% 50 ml @ 100 mls/hr IVPB Q24H [facility] Rx#:[id number] Piperacillin-Tazobactam 3 200 100 100 .375 gm In Sodium Chloride 0.9% 100 ml @ 25 mls/hr IVPB Q8HR [facility] Rx# :[id number] Sodium Chloride 0.9% 1, 130 000 ml @ 130 mls/hr IV . Q7H42M [facility] Rx#:[id number] Intake, IV Titration 100 Amount Potassium Chloride 20 meq 100 In Water For Injection 1 100ml.bag @ 50 mls/hr IVPB Q2H [facility] Rx#: [id number] Oral 1000 50 Output: Urine 0 600 0 Other: Voiding Method Bedside Commode Toilet Toilet Bedside Commode # Voids 1 1 3 # Bowel Movements 1 1 2 - Constitutional General appearance: Present: no acute distress - EENT Eyes: Present: anicteric sclerae, EOMI ENT: Present: hearing grossly normal - Respiratory Details: breathing even and unlabored - Cardiovascular Details: skin warm and dry - Integumentary Integumentary: Absent: cyanotic, jaundiced - Neurologic Neurologic: Present: CNII-XII intact - Musculoskeletal Musculoskeletal: Present: strength equal bilaterally - Psychiatric Psychiatric: Present: A&O x's 3, appropriate affect, intact judgment & insight - Labs CBC & Chem 7: 03/30/23 03:38 03/30/23 03:38 Labs: Abnormal Lab Results - Last 24 Hours (Table) 03/29/23 03/30/23 03/30/23 Range/Units 15:19 03:38 03:38 WBC 1.5 L (3.8-10.6) k/uL RBC 2.54 L (3.80-5.40) m/uL Hgb 7.7 L (11.4-16.0) gm/dL Hct 22.4 L (34.0-46.0) % Plt Count 15 L* (150-450) k/uL Neutrophils # 1.1 L (1.3-7.7) k/uL Lymphocytes # 0.3 L (1.0-4.8) k/uL Potassium 3.0 L 2.8 L (3.5-5.1) mmol/L Chloride 112 H (98-107) mmol/L Carbon Dioxide 21 L (22-30) mmol/L BUN 4 L (7-17) mg/dL Creatinine 0.50 L (0.52-1.04) mg/dL Calcium 7.1 L (8.4-10.2) mg/dL Microbiology - Last 24 Hours (Table) 03/27/23 22:20 Blood Culture - Preliminary Blood 03/27/23 22:47 Blood Culture - Preliminary Blood Assessment and Plan (1) Antineoplastic chemotherapy induced pancytopenia Current Visit: Yes Status: Acute Priority: High Code(s): D61.810 - ANTINEOPLASTIC CHEMOTHERAPY INDUCED PANCYTOPENIA; T45.1X5A - ADVERSE EFFECT OF ANTINEOPLASTIC AND IMMUNOSUP DRUGS, INIT SNOMED Code(s): 368341754785642 (2) Neutropenic fever Current Visit: Yes Status: Acute Priority: High Code(s): D70.9 - NEUTROPENIA, UNSPECIFIED; R50.81 - FEVER PRESENTING WITH CONDITIONS CLASSIFIED ELSEWHERE SNOMED Code(s): 513961786 (3) Breast cancer, right breast Current Visit: Yes Status: Chronic Priority: High Code(s): C50.911 - MALIGNANT NEOPLASM OF UNSP SITE OF RIGHT FEMALE BREAST SNOMED Code(s): 078709274 Plan: Neutropenic fever -S/p cycle 3 of doxorubicin/cyclophosphamide/pembrolizumab with nuelasta -In addition, she has persistent nausea, vomiting, dizziness, and lightheadedness in the presence of low cortisol of 0.3 seen in clinic -Given the low cortisol with her clinical signs and symptoms, there is concern for adrenal insufficiency secondary to pembrolizumab -As thyroid profile is normal, there is no concern for central hypophysitis. Stress dose steroid hydrocortisone 100 mg IV given on presentation with hydrocortisone 50 mg IV every 8 hours for adrenal insufficiency treatment. Will transition patient to oral cortef today. Cortef sent to outpatient pharmacy. Endocrine referral placed -Blood culture gram stain positive with gram positive bacilli, likely a contaminate. Urine culture negative. Continues on IV abx, ID following -Reports significant improvement in symptoms, afebrile since admit -G-CSF x 2 doses, WBC 1500, ANC 1100 today Pancytopenia -Chemotherapy-induced -Status post 2 units single donor platelets and 1 unit PRBCs. Hgb 7.7, platelets 15,000. Please transfuse for hemoglobin less than 7 or if symptomatic and for platelets less than 10,000 or if symptomatic -WBC improved, WBC 1500, ANC 1100 today -Patient will f/u in clinic MWF for lab encounters x 2 weeks Triple negative breast cancer -Patient has completed 4 cycles carbo/keytruda with weekly Taxol and 3/4 cycles of A/C/keytruda -Secondary to Persistent and progressive toxicities, plan is to proceed to surgery, minus the final cycle of A/C/keytruda -Primary Oncologist will discuss the case with Surgeon. Patient is considering plastic surgery simultaneously, she would like a second opinion. Referral being sent for her to Dr. Boone at [place]. Doctor attests: I performed a history and physical examination of this patient, developed impression and plan of care. Discussed with dictator. I agree with dictators note, documented as a scribe.
[2023-03-30] MEDS ORDERED: HYDROCORTISONE 10 MG TAB PO SCH (21:00)
[2023-03-31] MEDS ORDERED: HYDROCORTISONE 20 MG TAB PO SCH (09:00)
[2023-03-31] MEDS ORDERED: ERGOCALCIFEROL 1,250 MCG (50,000 IU) CAPSULE PO SCH (09:00)
== END 2023-03-30 15:20 | disposition home or self-care (01) | DRG 871 ==
LOC: EC 11:37 → 2SICU 14:23
PROVIDERS: ADMIT Hospitalist; ATTEND Hospitalist
PROC: 30233R1 Transfusion of Nonautologous Platelets into Peripheral Vein, Percutaneous Approach (ICD-10-PCS; principal; 2023-03-26)
PROC: 30233N1 Transfusion of Nonautologous Red Blood Cells into Peripheral Vein, Percutaneous Approach (ICD-10-PCS; 2023-03-26)
DX: A41.9 Sepsis, unspecified organism (principal); D61.810 Antineoplastic chemotherapy induced pancytopenia; D70.2 Other drug-induced agranulocytosis; C50.911 Malignant neoplasm of unspecified site of right female breast; Z20.822 Contact with and (suspected) exposure to COVID-19; E87.6 Hypokalemia; K59.00 Constipation, unspecified; R50.81 Fever presenting with conditions classified elsewhere; T45.1X5A Adverse effect of antineoplastic and immunosuppressive drugs, initial encounter; Z17.1 Estrogen receptor negative status [ER-]; Z80.3 Family history of malignant neoplasm of breast; Z85.3 Personal history of malignant neoplasm of breast; Z86.16 Personal history of COVID-19
CPT/HCPCS: 36415; 71045; 80048; 80053; 81001; 82272; 83605; 84132; 84145; 84484; 85025; 85610; 85652; 85730; 86140; 86850; 86900; 86901; 86920; 87040; 87086; 87324; 87635; 93005; 96361; 96365; 96366; 96375; 99291

== ENCOUNTER → 2023-05-06 | Outpatient (CLI) | payer BC ==
[2023-05-06 21:00] LABS: HGB 11.5 d/dL (12.0-15.0); MCH 30.7 pg (27.0-32.0); MCHC 32.9 d/dL (32.0-37.0); MCV 93.6 FL (80.0-97.0); Mean Platelet Volume 10.1 FL (9.5-12.2); NRBC Per 100 WBC 0 X 10*3/uL (0.00-0.01); Platelet Count 237 X 10*3/uL (140-440); RBC 3.74 X 10*6/uL (4.10-5.20); RDW 14.6 % (11.5-14.5); WBC 5.34 X 10*3/uL (4.50-10.00)
== END | disposition home or self-care (01) ==
LOC: LABWHC1 13:44
PROVIDERS: ATTEND Surgery Surgical Oncology
DX: Z01.812 Encounter for preprocedural laboratory examination (principal)
CPT/HCPCS: 36415; 85027; 86850; 86900; 86901

== ENCOUNTER → 2023-06-08 | Outpatient (CLI) | payer BC | END | disposition home or self-care (01) | LOC: LABWHC1 09:26 | PROVIDERS: ATTEND Internal Medicine Endocrinology, Diabetes & Metabolism | DX: E27.40 Unspecified adrenocortical insufficiency (principal) | CPT/HCPCS: 36415; 82024; 82533 ==

== ENCOUNTER → 2023-07-05 | Outpatient (CLI) | payer BC | END | disposition home or self-care (01) | LOC: LABWHC1 09:07 | PROVIDERS: ATTEND Radiology Radiation Oncology | DX: C50.411 Malignant neoplasm of upper-outer quadrant of right female breast (principal) | CPT/HCPCS: 81025 ==

== ENCOUNTER → 2023-09-13 | Outpatient (CLI) | payer BC ==
[2023-09-13 19:09] LABS: ALT 37 U/L (8-44); AST 27 U/L (13-35); Albumin/Globulin Ratio 1.74 Ratio (1.60-3.17); Alkaline Phosphatase 78 U/L (41-126); BUN/Creat Ratio 19.75 Ratio (12.00-20.00); Blood Urea Nitrogen 15.8 mg/dL (9.0-27.0); Calcium 9.7 mg/dL (8.7-10.3); Carbon Dioxide 26.4 mmol/L (21.6-31.8); Chloride 105 mmol/L (96-109); Globulin 2.3 g/dL (1.6-3.3); Glucose 87 mg/dL (70-110); Potassium 3.9 mmol/L (3.5-5.5); Sodium 143 mmol/L (135-145); T4, Free (Free Thyroxine) 1.13 ng/dL (0.80-1.80); Total Bilirubin 0.6 mg/dL (0.3-1.2); Total Protein 6.3 g/dL (6.2-8.2)
[2023-09-14 10:10] LABS: ACTH <1.50 pg/mL (0.00-45.99)
== END | disposition home or self-care (01) ==
LOC: LABWHC1 11:39
PROVIDERS: ATTEND Internal Medicine Endocrinology, Diabetes & Metabolism
DX: E27.3 Drug-induced adrenocortical insufficiency (principal)
CPT/HCPCS: 36415; 80053; 82024; 82533; 84439; 84443; 84480

== ENCOUNTER 2023-12-06 08:36 | Inpatient (IN) | payer BC ==
--- NOTE | 2023-12-06 09:55 | ED ---
Nausea/Vomiting/Diarrhea HPI - General Chief complaint: Nausea/Vomiting/Diarrhea Stated complaint: vomiting Time Seen by Provider: 12/06/23 08:54 Source: patient, RN notes reviewed Mode of arrival: ambulatory Limitations: no limitations - History of Present Illness Initial comments: 43-year-old female presents emergency department chief complaint of nausea vomiting. She had increasing issues over the last week but has been gone for 2 weeks. Patient states that she is on hydrocortisone for adrenal insufficiency which is chemo induced from her breast cancer treatment. She has finished her breast cancer treatment in August. She states she has diffuse abdominal discomfort. No complaints of dysuria hematuria diarrhea constipation patient states that she has had issues with nausea related to her prior treatment denies any headache no dizziness no blurred vision - Related Data Home Medications Medication Instructions Recorded Confirmed Ergocalciferol [Vitamin D2 (1250 1,250 mcg PO QMONTHLY 10/15/22 12/06/23 Mcg = 92160 Iu)] Hydrocortisone [Cortef] 10 mg PO DAILY@1800 12/06/23 12/06/23 Hydrocortisone [Cortef] 20 mg PO DAILY@1300 12/06/23 12/06/23 Allergies Allergy/AdvReac Type Severity Reaction Status Date / Time sulfamethoxazole Allergy Rash/Hives Verified 12/06/23 13:31 [From Bactrim] trimethoprim [From Bactrim] Allergy Rash/Hives Verified 12/06/23 13:31 Review of Systems ROS Statement: Those systems with pertinent positive or pertinent negative responses have been documented in the HPI. ROS Other: All systems not noted in ROS Statement are negative. Past Medical History Past Medical History: Cancer Additional Past Medical History / Comment(s): new dx. breast cancer, Adrenal History of Any Multi-Drug Resistant Organisms: None Reported Past Surgical History: Breast Surgery, Tonsillectomy Additional Past Surgical History / Comment(s): recent breast bx. Past Anesthesia/Blood Transfusion Reactions: No Reported Reaction Past Psychological History: No Psychological Hx Reported Smoking Status: Never smoker Past Alcohol Use History: Occasional Past Drug Use History: Marijuana - Past Family History Father Family Medical History: Cancer Additional Family Medical History / Comment(s): brain, paternal grandmother breast cancer General Exam Limitations: no limitations General appearance: alert, in no apparent distress Head exam: Present: atraumatic, normocephalic, normal inspection Eye exam: Present: normal appearance, PERRL, EOMI. Absent: scleral icterus, conjunctival injection, periorbital swelling ENT exam: Present: normal exam, normal oropharynx, mucous membranes moist Neck exam: Present: normal inspection, full ROM. Absent: tenderness, meningis mus, lymphadenopathy Respiratory exam: Present: normal lung sounds bilaterally. Absent: respiratory distress, wheezes, rales, rhonchi, stridor Cardiovascular Exam: Present: regular rate, normal rhythm, normal heart sounds. Absent: systolic murmur, diastolic murmur, rubs, gallop, clicks GI/Abdominal exam: Present: soft, tenderness, normal bowel sounds. Absent: distended, guarding, rebound, rigid Neurological exam: Present: alert, oriented X3 Course Vital Signs 12/06/23 12/06/23 08:50 13:19 Temperature 98.6 F 98.1 F Pulse Rate 101 H 78 Respiratory 20 18 Rate Blood Pressure 95/58 112/76 O2 Sat by Pulse 97 98 Oximetry Medical Decision Making - Medical Decision Making Was pt. sent in by a medical professional or institution (NATHAN Ortega, TREADLE CUT OFF SAW OPERATOR, urgent care, hospital, or prison...) When possible be specific @ -[No] Did you speak to anyone other than the patient for history (EMS, parent, family, police, friend...)? What history was obtained from this source @ -[No] Did you review nursing and triage notes (agree or disagree)? Why? @ -[I reviewed and agree with nursing and triage notes] Were old charts reviewed (outside hosp., previous admission, EMS record, old EKG , old radiological studies, urgent care reports/EKG's, prison records)? Report findings @ -Reviewed CBC and comp from the last week Differential Diagnosis (chest pain, altered mental status, abdominal pain women, abdominal pain men, vaginal bleeding, weakness, fever, dyspnea, syncope, headach e, dizziness, GI bleed, back pain, seizure, CVA, palpatations, mental health, musculoskeletal)? @ -Differential Abdominal Pain Women: Appendicitis, Cholecystitis, diverticulosis, ischemic bowel, pancreatitis, hepatitis, UTI, gastroenteritis, AAA, incarcerated hernia, bowel obstruction, constipation, inflammatory bowel, hepatitis, peptic ulcer disease, splenic infarction, perforated viscus, vulvitis, ovarian torsion, PID, kidney stone, placenta abruption, this is not meant to be an all-inclusive list EKG interpreted by me (3pts min.). @ -None X-rays interpreted by me (1pt min.). @ -[None done] CT interpreted by me (1pt min.). @ -CT of the e abdomen pelvis showing multiple lesions of the liver, abnormal gallbladder appearance U/S interpreted by me (1pt. min.). @ -Wound gallbladder showing gallbladder wall thickening, pericholecystic fluid and diffuse lesions of the liver What testing was considered but not performed or refused? (CT, X-rays, U/S, labs)? Why? @ -[None] What meds were considered but not given or refused? Why? @ -[None] Did you discuss the management of the patient with other professionals (professionals i.e. , PA, TREADLE CUT OFF SAW OPERATOR, lab, RT, psych nurse, social psychologist, police academy program coordinator, te acher, hydrological technical officer, adult protective caseworker)? Give summary @ -Dr. ferrari for admission secondary to probable hepatic lesions from breast cancer and possible cholecystitis. Was smoking cessation discussed for >3mins.? @ -[No] Was critical care preformed (if so, how long)? @ -[No] Were there social determinants of health that impacted care today? How? (Homelessness, low income, unemployed, alcoholism, drug addiction, transportation, low edu. Level, literacy, decrease access to med. care, [facility], rehab)? @ -[No] Was there de-escalation of care discussed even if they declined (Discuss DNR or withdrawal of care, Hospice)? DNR status @ -[No] What co-morbidities impacted this encounter? (DM, HTN, Smoking, COPD, CAD, Cancer, CVA, ARF, Chemo, Hep., AIDS, mental health diagnosis, sleep apnea, morbid obesity)? @ -[None] Was patient admitted / discharged? Hospital course, mention meds given and route, prescriptions, significant lab abnormalities, going to OR and other pertinent info. @ -Admitted patient is found to have probable new hepatic lesions from known breast cancer, acutely dehydrated with increasing nausea vomiting there is signs for possible acute cholecystitis patient was started on IV antibiotics, patient will have consult to surgery, oncology patient case discussed with hospitalist who accepts admission patient does have mild transaminitis and hyperbilirubinemia related to hepatic lesions Undiagnosed new problem with uncertain prognosis? @ -Yes hepatic lesions Drug Therapy requiring intensive monitoring for toxicity (Heparin, Nitro, Insulin, Cardizem)? @ -[No] Were any procedures done? @ -[No] Diagnosis/symptom? @ -Dehydration, metastatic disease, acute cholecystitis, transaminitis Acute, or Chronic, or Acute on Chronic? @ -Acute Uncomplicated (without systemic symptoms) or Complicated (systemic symptoms)? @ -Complicated Side effects of treatment? @ -[No] Exacerbation, Progression, or Severe Exacerbation? @ -[No] Poses a threat to life or bodily function? How? (Chest pain, [place], [place], pneumonia, PE, COPD, DKA, ARF, appy, cholecystitis, CVA, Diverticulitis, Homicidal, Suicidal, threat to staff... and all critical care pts) @ -Yes patient has surgical risk - Lab Data Result diagrams: 12/06/23 09:50 12/06/23 09:50 Lab Results 12/06/23 12/06/23 12/06/23 Range/Units 09:50 09:50 09:50 WBC 13.6 H (3.8-10.6) k/uL RBC 5.19 (3.80-5.40) m/uL Hgb 15.3 (11.4-16.0) gm/dL Hct 46.6 H (34.0-46.0) % MCV 89.9 (80.0-100.0) fL MCH 29.5 (25.0-35.0) pg MCHC 32.8 (31.0-37.0) g/dL RDW 14.3 (11.5-15.5) % Plt Count 73 L (150-450) k/uL MPV 9.6 Neutrophils % 77 % Lymphocytes % 15 % Monocytes % 5 % Eosinophils % 0 % Basophils % 1 % Neutrophils # 10.5 H (1.3-7.7) k/uL Lymphocytes # 2.0 (1.0-4.8) k/uL Monocytes # 0.7 (0-1.0) k/uL Eosinophils # 0.1 (0-0.7) k/uL Basophils # 0.1 (0-0.2) k/uL Manual Slide Review Performed RBC Morphology Normal Sodium 139 (137-145) mmol/L Potassium 3.4 L (3.5-5.1) mmol/L Chloride 108 H (98-107) mmol/L Carbon Dioxide 26 (22-30) mmol/L Anion Gap 5 mmol/L BUN 14 (7-17) mg/dL Creatinine 0.78 (0.52-1.04) mg/dL Est GFR (CKD-EPI)AfAm >90 (>60 ml/min/1.73 sqM) Est GFR (CKD-EPI)NonAf >90 (>60 ml/min/1.73 sqM) Glucose 81 (74-99) mg/dL Lactic Ac Sepsis Rflx Plasma Lactic Acid Varun 2.3 H* (0.7-2.0) mmol/L Calcium 7.7 L (8.4-10.2) mg/dL Magnesium 2.0 (1.6-2.3) mg/dL Total Bilirubin 3.6 H (0.2-1.3) mg/dL AST 495 H (14-36) U/L ALT 279 H (4-34) U/L Alkaline Phosphatase 272 H (38-126) U/L Total Protein 6.0 L (6.3-8.2) g/dL Albumin 2.8 L (3.5-5.0) g/dL Lipase 31 (23-300) U/L Urine Color Urine Appearance (Clear) Urine pH (5.0-8.0) Ur Specific [place] (1.001-1.035) Urine Protein (Negative) Urine Glucose (UA) (Negative) Urine Ketones (Negative) Urine Blood (Negative) Urine Nitrite (Negative) Urine Bilirubin (Negative) Urine Urobilinogen (<2.0) mg/dL Ur Leukocyte Esterase (Negative) Urine WBC (0-5) /hpf Ur Squamous Epith Cells (0-4) /hpf Urine Mucus (None) /hpf 12/06/23 12/06/23 Range/Units 10:34 13:18 WBC (3.8-10.6) k/uL RBC (3.80-5.40) m/uL Hgb (11.4-16.0) gm/dL Hct (34.0-46.0) % MCV (80.0-100.0) fL MCH (25.0-35.0) pg MCHC (31.0-37.0) g/dL RDW (11.5-15.5) % Plt Count (150-450) k/uL MPV Neutrophils % % Lymphocytes % % Monocytes % % Eosinophils % % Basophils % % Neutrophils # (1.3-7.7) k/uL Lymphocytes # (1.0-4.8) k/uL Monocytes # (0-1.0) k/uL Eosinophils # (0-0.7) k/uL Basophils # (0-0.2) k/uL Manual Slide Review RBC Morphology Sodium (137-145) mmol/L Potassium (3.5-5.1) mmol/L Chloride (98-107) mmol/L Carbon Dioxide (22-30) mmol/L Anion Gap mmol/L BUN (7-17) mg/dL Creatinine (0.52-1.04) mg/dL Est GFR (CKD-EPI)AfAm (>60 ml/min/1.73 sqM) Est GFR (CKD-EPI)NonAf (>60 ml/min/1.73 sqM) Glucose (74-99) mg/dL Lactic Ac Sepsis Rflx Y Plasma Lactic Acid Varun (0.7-2.0) mmol/L Calcium (8.4-10.2) mg/dL Magnesium (1.6-2.3) mg/dL Total Bilirubin (0.2-1.3) mg/dL AST (14-36) U/L ALT (4-34) U/L Alkaline Phosphatase (38-126) U/L Total Protein (6.3-8.2) g/dL Albumin (3.5-5.0) g/dL Lipase (23-300) U/L Urine Color Yellow Urine Appearance Cloudy H (Clear) Urine pH 6.5 (5.0-8.0) Ur Specific [place] >1.050 H (1.001-1.035) Urine Protein Trace H (Negative) Urine Glucose (UA) Negative (Negative) Urine Ketones 1+ H (Negative) Urine Blood Negative (Negative) Urine Nitrite Negative (Negative) Urine Bilirubin Negative (Negative) Urine Urobilinogen <2.0 (<2.0) mg/dL Ur Leukocyte Esterase Trace H (Negative) Urine WBC 7 H (0-5) /hpf Ur Squamous Epith Cells 31 H (0-4) /hpf Urine Mucus Rare H (None) /hpf Disposition Clinical Impression: Hepatic lesion, Breast cancer, Dehydration, Acute cholecystitis, Transaminitis Disposition: ADMITTED IP TO THIS HOSP Condition: Fair Time of Disposition: 13:30
[2023-12-06] MEDS: SODIUM CHLORIDE 0.9% 2,000 ML IV STA (09:56)
[2023-12-06] MEDS: droPERidol 5 MG/2 ML VIAL IVP ONE (10:05)
[2023-12-06] MEDS: HYDROCORTISONE SUCCINATE 100 MG/2 ML VIAL IV STA (10:06)
[2023-12-06 10:26] LABS: ALT 279 U/L (4-34); AST 495 U/L (14-36); African American GFR (CKD) >90 (>60 ml/min/1.73 sqM); Albumin 2.8 g/dL (3.5-5.0); Alkaline Phosphatase 272 U/L (38-126); Anion Gap 5 mmol/L; Blood Urea Nitrogen 14 mg/dL (7-17); Calcium 7.7 mg/dL (8.4-10.2); Carbon Dioxide 26 mmol/L (22-30); Chloride 108 mmol/L (98-107); Glucose 81 mg/dL (74-99); Lipase 31 U/L (23-300); Non-African American GFR(CKD) >90 (>60 ml/min/1.73 sqM); Potassium 3.4 mmol/L (3.5-5.1); Sodium 139 mmol/L (137-145); Total Bilirubin 3.6 mg/dL (0.2-1.3)
[2023-12-06 10:55] LABS: Basophils # (A) 0.1 k/uL (0-0.2); Basophils % (A) 1 %; Eosinophils # (A) 0.1 k/uL (0-0.7); Eosinophils % (A) 0 %; HCT 46.6 % (34.0-46.0); HGB 15.3 gm/dL (11.4-16.0); Lymphocytes % (A) 15 %; MCH 29.5 pg (25.0-35.0); MCHC 32.8 g/dL (31.0-37.0); MCV 89.9 fL (80.0-100.0); Mean Platelet Volume 9.6; Monocytes # (A) 0.7 k/uL (0-1.0); Monocytes % (A) 5 %; Neutrophils # (A) 10.5 k/uL (1.3-7.7); Neutrophils % (A) 77 %; RBC 5.19 m/uL (3.80-5.40); RDW 14.3 % (11.5-15.5); WBC 13.6 k/uL (3.8-10.6)
--- NOTE | 2023-12-06 11:42 | CT ---
EXAMINATION TYPE: CT abdomen pelvis w con CT DLP: 1024.8 mGycm, Automated exposure control for dose reduction was used. DATE OF EXAM: 12/06/2023 11:10 AM COMPARISON: None. [id number] INDICATION:Female, 43 years old with history of pain, hx CA; abdominal pain, nausea and we akness x few weeks. Hx of breast ca TECHNIQUE: Axial CT abdomen pelvis w con;Sagittal and coronal reformats were created on a separate w orkstation. Contrast used:100ml mL of Isovue 300 with IV Contrast, (none if empty) Oral contrast used: without Oral Contrast (none if empty) FINDINGS: LOWER CHEST: Unremarkable ABDOMEN LIVER: Subtle 3.6 cm liver hypodensity in the left lobe. Neoplasm, focal fatty infiltration are with in differential diagnostic considerations GALLBLADDER AND BILE DUCTS: Unusual appearance of gallbladder. Ultrasound gallbladder follow-up recom mended PANCREAS: Unremarkable. SPLEEN: Unremarkable. ADRENAL GLANDS: Unremarkable. KIDNEYS AND URETERS: No evidence of hydronephrosis or renal calculus. The ureters are unremarkable. PELVIS BLADDER: Unremarkable REPRODUCTIVE: Unremarkable. ABDOMEN & PELVIS STOMACH AND BOWEL: No evidence of bowel obstruction. PERITONEUM/RETROPERITONEUM: No evidence of pneumoperitoneum or free fluid. VASCULATURE: No evidence of aortic aneurysm. MUSCULOSKELETAL: No acute osseous abnormalities LYMPH NODES: No gross evidence for lymphadenopathy. SOFT TISSUE/ABDOMINAL WALL: Unremarkable IMPRESSION: 1. Small amount of free fluid in the posterior cul-de-sac. 2. LIVER: Subtle 3.6 cm liver hypodensity in the left lobe. Neoplasm, focal fatty infiltration are within differential diagnostic considerations 3. GALLBLADDER AND BILE DUCTS: Unusual appearance of gallbladder. Ultrasound gallbladder follow-up r ecommended
[2023-12-06 12:39] LABS: Platelet Count 73 k/uL (150-450); RBC Morphology Normal
--- NOTE | 2023-12-06 12:40 | US ---
EXAMINATION TYPE: US gallbladder DATE OF EXAM: 12/06/2023 COMPARISON: NONE CLINICAL INDICATION: Female, 43 years old with history of Pain, abnormal CT, transaminitis; hx breast CA, nausea and abd pain, abn CT TECHNIQUE: Multiple sonographic images of the right upper quadrant are obtained. FINDINGS: EXAM MEASUREMENTS: Liver Length: 17.3 cm Gallbladder Wall: 0.7 cm CBD: 0.5 cm Right Kidney: 10.7 x 4.3 x 4.3 cm MUNITIONS WORKER NOTES:subcostal views gassed out Pancreas: wnl Liver: multiple hypoechoic lesions within left lobe, largest = 3.2 x 4.5 x 3.5cm Gallbladder: appearance of inflamed thickened wall with possible cholecystic fluid Evidence for sonographic Pastor's sign: no CBD: wnl Right Kidney: wnl IMPRESSION: 1. Multiple hypoechoic lesion left hepatic lobe. Metastatic disease is not excluded. Further characte rization with contrast MRI is advised. 2. Thick gallbladder wall with pericholecystic fluid.
[2023-12-06] MEDS ORDERED: NALOXONE 0.4 MG/ML 1 ML VIAL IV PRN (13:30)
[2023-12-06] MEDS ORDERED: HYDROmorphone 0.5 MG/0.5 ML SYRINGE IVP PRN (13:30)
[2023-12-06 13:40] LABS: Appearance,Urine Cloudy (Clear); Bilirubin,Urine Negative (Negative); Blood,Urine Negative (Negative); Color,Urine Yellow; Glucose,Urine (UA) Negative (Negative); Ketones,Urine 1+ (Negative); Leukocyte Esterase,Urine Trace (Negative); Mucus,Urine Rare /hpf; Nitrite,Urine Negative (Negative); PH, Urine 6.5 (5.0-8.0); Protein,Urine Trace (Negative); Squamous Epithelial Cell,Urine 31 /hpf (0-4); Urobilinogen,Urine <2.0 mg/dL (<2.0); WBC,Urine 7 /hpf (0-5)
[2023-12-06 13:41] LABS: Specific Gravity,Urine >1.050 (1.001-1.035)
[2023-12-06] MEDS: SODIUM CHLORIDE 0.9% 1,000 ML IV SCH (14:17)
[2023-12-06] MEDS: ONDANSETRON 4 MG/2 ML VIAL IVP PRN (14:22)
--- NOTE | 2023-12-06 15:56 | P.GSCN ---
History of Present Illness Consult date: 12/06/23 History of present illness: CHIEF COMPLAINT: Abdominal pain HISTORY OF PRESENT ILLNESS: This is a 43-year-old female who presented to the hospital with complaints of abdominal pain with nausea and vomiting x 2 weeks. She reports oral intake has decreased. She does have a history of breast cancer diagnosed a year ago she is undergone a bilateral mastectomy at [facility]. She had the chemo completed in March and radiation treatment completed in August 2023. Patient reports that her urine is dark. She was found to have elevated bilirubin and LFTs. She had a CT scan abdomen and pelvis that reported subtle 3.6 cm liver hypodensity in the left lobe. Neoplasm focal fatty infiltration are within the differential diagnosis. Unusual appearance of gallbladder. Gallbladder ultrasound reported multiple hypoechoic lesions in the left hepatic lobe. Metastatic disease not excluded. Thickened gallbladder wall with pericholecystic fluid. Patient denies any prior abdominal surgeries. Denies any cardiac history. Patient has had a 9 pound weight loss this week. PAST MEDICAL HISTORY: Breast cancer, adrenal insufficiency PAST SURGICAL HISTORY: Bilateral mastectomy MEDICATIONS: See below ALLERGIES: See below SOCIAL HISTORY: No illicit drug use. REVIEW OF SYSTEMS: CONSTITUTIONAL: Denies fever or chills. HEENT: Denies blurred vision, vision changes, or eye pain. Denies hemoptysis CARDIOVASCULAR: Denies chest pain or pressure. RESPIRATORY: No shortness of breath. GASTROINTESTINAL: See HPI for pertinent findings HEMATOLOGIC: Denies bleeding disorders. GENITOURINARY: Denies any blood in urine or increased urinary frequency. SKIN: Denies pruitis. Denies rash. PHYSICAL EXAM: VITAL SIGNS: Reviewed GENERAL: Well-developed in no acute distress. HEENT: No sclera icterus. Extraocular movements grossly intact. Moist buccal mucosa. Head is atraumatic, normocephalic. No nasal drainage. ABDOMEN: Soft. Nondistended. Diffuse tenderness but more tender in right upper quadrant NEUROLOGIC: Alert and oriented. Cranial nerves II through XII grossly intact. LABORATORY DATA: WBC 13.6 Hgb 15.3 platelets 73 Sodium is 139 potassium 3.4 creatinine 0.78 Lactic acid 2.3 down to 1.6 Total bilirubin 3.6 AST 495 ALT 275 alk phos 272 Albumin 2.8 IMAGING: CT scan and ultrasound results as stated above ASSESSMENT: 1. Abdominal pain 2. Liver lesions left hepatic lobe 3. thickened gallbladder wall with pericholecystic fluid noted on ultrasound 4. Elevated lactic acid level 5. History of breast cancer PLAN: -MRI of the liver ordered for further evaluation of liver lesions and gallbladder -Okay for clear liquid diet after MRI -Continue IV fluids -Agree with oncology consult -Repeat labs in a.m. Physician [employer] Member note has been reviewed by physician. Signing provider agrees with the documented findings, assessment, and plan of care. Past Medical History Past Medical History: Cancer Additional Past Medical History / Comment(s): new dx. breast cancer, Adrenal History of Any Multi-Drug Resistant Organisms: None Reported Past Surgical History: Breast Surgery, Tonsillectomy Additional Past Surgical History / Comment(s): recent breast bx. Past Anesthesia/Blood Transfusion Reactions: No Reported Reaction Past Psychological History: No Psychological Hx Reported Smoking Status: Never smoker Past Alcohol Use History: Occasional Past Drug Use History: Marijuana - Past Family History Father Family Medical History: Cancer Additional Family Medical History / Comment(s): brain, paternal grandmother breast cancer Medications and Allergies Home Medications Medication Instructions Recorded Confirmed Type Ergocalciferol [Vitamin D2 (1250 1,250 mcg PO QMONTHLY 10/15/22 12/06/23 History Mcg = 23826 Iu)] Hydrocortisone [Cortef] 10 mg PO DAILY@1800 12/06/23 12/06/23 History Hydrocortisone [Cortef] 20 mg PO DAILY@1300 12/06/23 12/06/23 History Allergies Allergy/AdvReac Type Severity Reaction Status Date / Time sulfamethoxazole Allergy Rash/Hives Verified 12/06/23 13:31 [From Bactrim] trimethoprim [From Bactrim] Allergy Rash/Hives Verified 12/06/23 13:31 Surgical - Exam Vital Signs Temp Pulse Resp BP Pulse Ox 98.6 F 101 H 20 95/58 97 12/06/23 08:50 12/06/23 08:50 12/06/23 08:50 12/06/23 08:50 12/06/23 08:50 Results - Labs 12/06/23 09:50 12/06/23 09:50 Abnormal Lab Results - Last 24 Hours (Table) 12/06/23 12/06/23 12/06/23 Range/Units 09:50 09:50 09:50 WBC 13.6 H (3.8-10.6) k/uL Hct 46.6 H (34.0-46.0) % Plt Count 73 L (150-450) k/uL Neutrophils # 10.5 H (1.3-7.7) k/uL Potassium 3.4 L (3.5-5.1) mmol/L Chloride 108 H (98-107) mmol/L Plasma Lactic Acid Varun 2.3 H* (0.7-2.0) mmol/L Calcium 7.7 L (8.4-10.2) mg/dL Total Bilirubin 3.6 H (0.2-1.3) mg/dL AST 495 H (14-36) U/L ALT 279 H (4-34) U/L Alkaline Phosphatase 272 H (38-126) U/L Total Protein 6.0 L (6.3-8.2) g/dL Albumin 2.8 L (3.5-5.0) g/dL Urine Appearance (Clear) Ur Specific [place] (1.001-1.035) Urine Protein (Negative) Urine Ketones (Negative) Ur Leukocyte Esterase (Negative) Urine WBC (0-5) /hpf Ur Squamous Epith Cells (0-4) /hpf Urine Mucus (None) /hpf 12/06/23 Range/Units 13:18 WBC (3.8-10.6) k/uL Hct (34.0-46.0) % Plt Count (150-450) k/uL Neutrophils # (1.3-7.7) k/uL Potassium (3.5-5.1) mmol/L Chloride (98-107) mmol/L Plasma Lactic Acid Varun (0.7-2.0) mmol/L Calcium (8.4-10.2) mg/dL Total Bilirubin (0.2-1.3) mg/dL AST (14-36) U/L ALT (4-34) U/L Alkaline Phosphatase (38-126) U/L Total Protein (6.3-8.2) g/dL Albumin (3.5-5.0) g/dL Urine Appearance Cloudy H (Clear) Ur Specific [place] >1.050 H (1.001-1.035) Urine Protein Trace H (Negative) Urine Ketones 1+ H (Negative) Ur Leukocyte Esterase Trace H (Negative) Urine WBC 7 H (0-5) /hpf Ur Squamous Epith Cells 31 H (0-4) /hpf Urine Mucus Rare H (None) /hpf Diabetes panel 12/06/23 Range/Units 09:50 Sodium 139 (137-145) mmol/L Potassium 3.4 L (3.5-5.1) mmol/L Chloride 108 H (98-107) mmol/L Carbon Dioxide 26 (22-30) mmol/L BUN 14 (7-17) mg/dL Creatinine 0.78 (0.52-1.04) mg/dL Glucose 81 (74-99) mg/dL Calcium 7.7 L (8.4-10.2) mg/dL AST 495 H (14-36) U/L ALT 279 H (4-34) U/L Alkaline Phosphatase 272 H (38-126) U/L Total Protein 6.0 L (6.3-8.2) g/dL Albumin 2.8 L (3.5-5.0) g/dL Calcium panel 12/06/23 Range/Units 09:50 Calcium 7.7 L (8.4-10.2) mg/dL Albumin 2.8 L (3.5-5.0) g/dL Pituitary panel 12/06/23 Range/Units 09:50 Sodium 139 (137-145) mmol/L Potassium 3.4 L (3.5-5.1) mmol/L Chloride 108 H (98-107) mmol/L Carbon Dioxide 26 (22-30) mmol/L BUN 14 (7-17) mg/dL Creatinine 0.78 (0.52-1.04) mg/dL Glucose 81 (74-99) mg/dL Calcium 7.7 L (8.4-10.2) mg/dL Adrenal panel 12/06/23 Range/Units 09:50 Sodium 139 (137-145) mmol/L Potassium 3.4 L (3.5-5.1) mmol/L Chloride 108 H (98-107) mmol/L Carbon Dioxide 26 (22-30) mmol/L BUN 14 (7-17) mg/dL Creatinine 0.78 (0.52-1.04) mg/dL Glucose 81 (74-99) mg/dL Calcium 7.7 L (8.4-10.2) mg/dL Total Bilirubin 3.6 H (0.2-1.3) mg/dL AST 495 H (14-36) U/L ALT 279 H (4-34) U/L Alkaline Phosphatase 272 H (38-126) U/L Total Protein 6.0 L (6.3-8.2) g/dL Albumin 2.8 L (3.5-5.0) g/dL
[2023-12-06] MEDS: ONDANSETRON 4 MG/2 ML VIAL IVP STA ×2 (16:16→16:17)
[2023-12-06] MEDS: PIPERACILLIN-TAZOBACTAM 3.375 GM in SODIUM CHLORIDE 0.9% 100 ML IVPB SCH (17:56)
[2023-12-06] MEDS: PANTOPRAZOLE 40 MG/10 ML VIAL IVP SCH (17:57)
--- NOTE | 2023-12-06 21:12 | P.HPIM ---
History of Present Illness H&P Date: 12/06/23 Chief Complaint: Nausea and vomiting Patient is a 43-year-old female with known history of breast cancer status post surgery and chemotherapy in March 2023 and radiation in August 2023 and adrenal insufficiency. Patient presents to ER with complaints of nausea, vomiting and abdominal pain.. Patient states that she has been having symptoms for the past 2 weeks and is also having generalized weakness. Abdominal pain is mainly diffuse and also back pain. Denies any complaints of fever or chills at home. Denies any headache or dizziness or blurred vision. No hematuria or dysuria. Denies any issues with constipation. On admission blood pressure 95/58 pulse is 101 respiration 20 and pulse ox 97% on room air. CT of the abdomen pelvis showed small amount of free fluid in the posterior cul-de-sac. Cycle 3.6 cm liver hypodensity in the left lobe. Neoplasm,Focal fatty infiltration are within the differential diagnostic considerations. Gallbladder and bile ducts unusual appearance of gallbladder. Ultrasound gallbladder follow-up recommended. Ultrasound gallbladder showed multiple hypoechoic lesion left hepatic lobe. Metastatic disease not excluded. Further characterization with contrast MRI is advised. Thick gallbladder wall with pericholecystic fluid. Laboratory data showed WBC 13.6 hemoglobin 15.3 and platelets 73 Sodium 139 potassium 3.4 chloride 108 bicarb is 26 Lactic acid 2.3 calcium Total bili 3.6 AST 495 ALT 279 and alk phos 272 and lipase level 31 Urinalysis showed cloudy with increased specific gravity and 1+ ketones and trace leukocyte esterase. WBC 7 and squamous epithelial cells 31 Review of Systems Constitutional: Patient denies any fever or chills . Patient does have generalized weakness and fatigue.. Abdomen: Patient complains of nausea vomiting and abdominal pain. No diarrhea. No constipation. Cardiovascular: Patient denies any chest pain or short of breath no palpitations. Respiratory: patient denied any cough is from production. No shortness of breath Neurologic: Patient denied any numbness or tingling headache. Musculoskeletal: Patient denies any complaints of joint swelling or deformity. Skin: Negative Psychiatric: Negative Endocrine: No heat or cold intolerance. No recent weight gain. Genitourinary: No dysuria or hematuria. All other 14 point ROS negative except the above Past Medical History Past Medical History: Cancer Additional Past Medical History / Comment(s): new dx. breast cancer, Adrenal History of Any Multi-Drug Resistant Organisms: None Reported Past Surgical History: Breast Surgery, Tonsillectomy Additional Past Surgical History / Comment(s): recent breast bx. Past Anesthesia/Blood Transfusion Reactions: No Reported Reaction Smoking Status: Never smoker - Past Family History Father Family Medical History: Cancer Additional Family Medical History / Comment(s): brain, paternal grandmother breast cancer Medications and Allergies Home Medications Medication Instructions Recorded Confirmed Type Ergocalciferol [Vitamin D2 (1250 1,250 mcg PO QMONTHLY 10/15/22 12/06/23 History Mcg = 24615 Iu)] Hydrocortisone [Cortef] 10 mg PO DAILY@1800 12/06/23 12/06/23 History Hydrocortisone [Cortef] 20 mg PO DAILY@1300 12/06/23 12/06/23 History Allergies Allergy/AdvReac Type Severity Reaction Status Date / Time sulfamethoxazole Allergy Rash/Hives Verified 12/06/23 13:31 [From Bactrim] trimethoprim [From Bactrim] Allergy Rash/Hives Verified 12/06/23 13:31 Physical Exam Vitals: Vital Signs Temp Pulse Pulse Resp BP BP Pulse Ox 12/06/23 19:28 97.6 F 72 18 115/72 93 L 12/06/23 17:51 97.4 F L 71 18 109/71 93 L 12/06/23 13:19 98.1 F 78 18 112/76 98 12/06/23 08:50 98.6 F 101 H 20 95/58 97 Intake and Output 12/06/23 12/06/23 12/06/23 06:59 14:59 22:59 Intake Total 100 Balance 100 Intake: Intake, IV Titration 100 Amount Piperacillin-Tazobactam 3 100 .375 gm In Sodium Chloride 0.9% 100 ml @ 25 mls/hr IVPB Q8HR [facility] Rx# :[id number] Other: Weight 117.48 kg 117.48 kg PHYSICAL EXAMINATION: Patient is lying in the bed comfortably, no acute distress, awake alert and oriented.. HEENT: Normocephalic. Neck is supple. Pupils reactive. Nostrils clear. Oral cavity is moist. Neck reveals no JVD, carotid bruits, or thyromegaly. CHEST EXAMINATION: Trachea is central. Symmetrical expansion. Lung ruffin clear to auscultation and percussion. CARDIAC: Normal S1, S2 with no gallops. No murmurs ABDOMEN: Soft. Bowel sounds present. No right upper quadrant tenderness. No guarding or rigidity. Extremities: reveal no edema. No clubbing or cyanosis Neurologically awake, alert, oriented x3 with well-coordinated movements. No focal deficits noted Skin: No rash or skin lesions. Psychiatric: Coperative. Nonsuicidal Musculoskeletal: No joint swelling or deformity. Normal range of motion. Results CBC & Chem 7: 12/06/23 09:50 12/06/23 09:50 Labs: Abnormal Lab Results - Last 24 Hours (Table) 12/06/23 12/06/23 12/06/23 Range/Units 09:50 09:50 09:50 WBC 13.6 H (3.8-10.6) k/uL Hct 46.6 H (34.0-46.0) % Plt Count 73 L (150-450) k/uL Neutrophils # 10.5 H (1.3-7.7) k/uL Potassium 3.4 L (3.5-5.1) mmol/L Chloride 108 H (98-107) mmol/L Plasma Lactic Acid Varun 2.3 H* (0.7-2.0) mmol/L Calcium 7.7 L (8.4-10.2) mg/dL Total Bilirubin 3.6 H (0.2-1.3) mg/dL AST 495 H (14-36) U/L ALT 279 H (4-34) U/L Alkaline Phosphatase 272 H (38-126) U/L Total Protein 6.0 L (6.3-8.2) g/dL Albumin 2.8 L (3.5-5.0) g/dL Urine Appearance (Clear) Ur Specific [place] (1.001-1.035) Urine Protein (Negative) Urine Ketones (Negative) Ur Leukocyte Esterase (Negative) Urine WBC (0-5) /hpf Ur Squamous Epith Cells (0-4) /hpf Urine Mucus (None) /hpf 12/06/23 Range/Units 13:18 WBC (3.8-10.6) k/uL Hct (34.0-46.0) % Plt Count (150-450) k/uL Neutrophils # (1.3-7.7) k/uL Potassium (3.5-5.1) mmol/L Chloride (98-107) mmol/L Plasma Lactic Acid Varun (0.7-2.0) mmol/L Calcium (8.4-10.2) mg/dL Total Bilirubin (0.2-1.3) mg/dL AST (14-36) U/L ALT (4-34) U/L Alkaline Phosphatase (38-126) U/L Total Protein (6.3-8.2) g/dL Albumin (3.5-5.0) g/dL Urine Appearance Cloudy H (Clear) Ur Specific [place] >1.050 H (1.001-1.035) Urine Protein Trace H (Negative) Urine Ketones 1+ H (Negative) Ur Leukocyte Esterase Trace H (Negative) Urine WBC 7 H (0-5) /hpf Ur Squamous Epith Cells 31 H (0-4) /hpf Urine Mucus Rare H (None) /hpf Thrombosis Risk Factor Assmnt - DVT/VTE Prophylaxis DVT/VTE Prophylaxis: Pharmacologic Prophylaxis ordered - Choose All That Apply Any of the Below Risk Factors Present?: Yes Each Factor Represents 1 point: Age 41-60 years, Obesity (BMI >25) Other Risk Factors: Yes Each Risk Factor Represents 2 Points: Malignancy Other congenital or acquired thrombophilia - If yes, enter type in comment: No Thrombosis Risk Factor Assessment Total Risk Factor Score: 4 Thrombosis Risk Factor Assessment Level: Moderate Risk Assessment and Plan Assessment: Abdominal pain with multiple left hepatic lobe lesions likely metastatic Intractable nausea and vomiting and unable to tolerate oral intake secondary to above Thickened gallbladder wall with pericholecystic fluid as per ultrasound abdomen Elevated liver enzymes and hyperbilirubinemia Leukocytosis Lactic acidosis likely due to tissue hypoperfusion. Hypokalemia History of breast cancer status post chemo in March 2023 and radiation in August 2023 Adrenal insufficiency on hydrocortisone at home Obesity with BMI 35.1 GI and DVT prophylaxis with PPI and Lovenox subcu Plan: Patient will be continued on IV hydration, symptomatic management for nausea and vomiting and continue with pain management. General surgery was consulted. MRI of the liver was ordered to further evaluation of hepatic lesions and gallbladder. Oncology was consulted. Continue with home medications and follow closely. Prognosis is guarded. Time with Patient: Greater than 30
--- NOTE | 2023-12-07 05:11 | MR ---
EXAMINATION TYPE: MR liver wo/w con DATE OF EXAM: 12/06/2023 COMPARISON: Ultrasound gallbladder and CT abdomen and pelvis earlier in day. HISTORY: Abdominal pain, liver lesion. History of breast cancer CONTRAST: Standard multiplanar, multisequence MRI departmental protocol images were obtained without contrast a nd with 12 mL intravenous Gadavist gadolinium contrast. Imaging of the abdomen focusing on the liver . FINDINGS: Liver: Liver is overall normal in size. Corresponding to CT in the left hepatic lobe there is a oval- shaped subtle lesion of slight T2 hyperintensity measuring 5.1 cm transversely by 3.4 cm AP diameter axial image 46 series 701 by approximately 4.1 cm craniocaudal dimension coronal image 11 series 301. Lesion of slight subtle T1 hypointensity relative to remainder of liver. Slightly suboptimal due to motion as well as what is labeled precontrast fat sat T1 images has contrast in the aorta. Dynamic po stcontrast imaging shows this area to remain slightly hypointense relative to the remainder of the li ap. No significant change on in and out of phase T1-weighted images. Seen best on diffusion weighted imaging there are multiple round additional subtle lesions of slight increased signal. Similar lesio ns are noted throughout the spleen.. No surrounding ascites. Patent main portal vein. Patent hepatic veins draining into IVC. Other: Bilateral breast implants are partially redemonstrated. Lung bases remain clear. Spleen, pancr eas, and both adrenal glands remain within normal limits. No concerning renal mass or hydronephrosis is seen bilaterally. No abnormal bowel dilatation. No AAA. Osseous structures are intact. No free flu id is seen. IMPRESSION: Slightly suboptimal study. Nonspecific characteristics of the dominant left hepatic lobe lesion. There are subtle smaller multiple lesions throughout the liver seen best on diffusion-weighte d imaging. Metastatic disease needs to be considered given patient's history of breast cancer and mul tiplicity of lesions and imaging guided sampling for tissue analysis should be considered. Presence o f additional multiple subcentimeter lesions throughout the spleen makes an infiltrative process a pos sibility or possible etiology but further investigation with sampling is likely warranted.
[2023-12-07] MEDS: ENOXAPARIN 30 MG/0.3 ML SYRINGE SQ SCH (08:57)
[2023-12-07 12:01] LABS: ALT 218 U/L (8-44); AST 291 U/L (13-35); Albumin 2.7 g/dL (3.8-4.9); Albumin/Globulin Ratio 1.17 Ratio (1.60-3.17); Alkaline Phosphatase 223 U/L (41-126); BUN/Creat Ratio 19.62 Ratio (12.00-20.00); Blood Urea Nitrogen 15.7 mg/dL (9.0-27.0); Calcium 7.4 mg/dL (8.7-10.3); Carbon Dioxide 21.7 mmol/L (21.6-31.8); Chloride 108 mmol/L (96-109); Globulin 2.3 g/dL (1.6-3.3); Glucose 89 mg/dL (70-110); Potassium 3.8 mmol/L (3.5-5.5); Sodium 142 mmol/L (135-145); Total Bilirubin 2.7 mg/dL (0.3-1.2)
[2023-12-07 12:23] LABS: Basophils # (A) 0.03 X 10*3/uL (0.00-0.10); Basophils % (A) 0.2 %; Eosinophils # (A) 0.72 X 10*3/uL (0.04-0.35); Eosinophils % (A) 3.8 %; HCT 38.7 % (37.2-46.3); HGB 12.6 g/dL (12.0-15.0); Immature Platelet Fraction 7.4 % (1.1-6.1); Lymphocytes # (A) 1.93 X 10*3/uL (0.90-5.00); Lymphocytes % (A) 10.2 %; MCH 29.3 pg (27.0-32.0); MCHC 32.6 g/dL (32.0-37.0); Mean Platelet Volume 11.4 FL (9.5-12.2); Monocytes # (A) 1.68 X 10*3/uL (0.20-1.00); Monocytes % (A) 8.9 %; NRBC Per 100 WBC 0 X 10*3/uL (0.00-0.01); Neutrophils # (A) 14.38 X 10*3/uL (1.80-7.70); Neutrophils % (A) 76.3 %; Platelet Count 66 X 10*3/uL (140-440); RBC Morphology Normal (Normal); RDW 14.3 % (11.5-14.5); WBC 18.86 X 10*3/uL (4.50-10.00)
[2023-12-07] MEDS: ONDANSETRON 4 MG/2 ML VIAL IVP PRN (12:51)
[2023-12-07] MEDS: HYDROCORTISONE 10 MG TAB PO SCH ×2 (12:51→17:28)
[2023-12-07] MEDS: ENOXAPARIN 40 MG/0.4 ML SYRINGE SQ SCH (13:03)
[2023-12-07 13:57] LABS: INR 1.7 (<1.2); Prothrombin Time 16.9 sec (10.0-12.5)
[2023-12-07 14:15] VITALS: BMI 35.1
--- NOTE | 2023-12-07 14:56 | P.CONS ---
History of Present Illness - Reason for Consult Consult date: 12/07/23 Triple Negative Breast Cancer - Chief Complaint Nausea - History of Present Illness Ms. Jones is a 43-year-old woman with a past medical history significant for stage IIIa triple negative invasive ductal carcinoma of the right breast status post 4 cycles of carboplatin/paclitaxel/pembrolizumab followed by 3 cycles of AC plus pembrolizumab complicated by adrenal insufficiency secondary to immu notherapy and subsequent bilateral mastectomy on 05/11/2023 with pathologic complete response who presents with intermittent nausea. She was most recently seen in clinic on 11/29/2022 where she noted preceding URI with fatigue. Since this visit, she developed progressive nausea and dry heaving without vomiting. Appetite is significantly decreased during this time along with intermittent abdominal pain. Given the signs and symptoms, she presented to the ED for additional management. In the ED, she was hemodynamically stable and afebrile. Sodium was 139 with glucose of 81 and creatinine 0.78. Total bilirubin was 3.6, AST 495, ALT 279, alkaline phosphatase 272. CBC was notable for WBC 13.6 (ANC 10.5), hemoglobin 15.3, platelets 73. Of note, CBC in clinic noted platelets of 108. Vitamin B12, thyroid profile, and serum cortisol in clinic were normal. Gallbladder ultrasound noted thick gallbladder with pericholecystic fluid along with multiple hypoechoic lesions in the left hepatic lobe. Liver MRI noted left hepatic lobe lesion measuring 5.1 cm in the largest dimension along with subtle lesions noted in the liver and potentially the spleen. She did have a decrease in liver enzymes since admission with AST 291, ALT 218, alkaline phosphatase 223, total bilirubin 2.7. Review of Systems 14 point review of systems was conducted with pertinent positives and negatives as noted per HPI Past Medical History Past Medical History: Cancer Additional Past Medical History / Comment(s): new dx. breast cancer, Adrenal History of Any Multi-Drug Resistant Organisms: None Reported Past Surgical History: Breast Surgery, Tonsillectomy Additional Past Surgical History / Comment(s): recent breast bx. Past Anesthesia/Blood Transfusion Reactions: No Reported Reaction Smoking Status: Never smoker - Past Family History Father Family Medical History: Cancer Additional Family Medical History / Comment(s): brain, paternal grandmother breast cancer Medications and Allergies Home Medications Medication Instructions Recorded Confirmed Type Ergocalciferol [Vitamin D2 (1250 1,250 mcg PO QMONTHLY 10/15/22 12/06/23 History Mcg = 60029 Iu)] Hydrocortisone [Cortef] 10 mg PO DAILY@1800 12/06/23 12/06/23 History Hydrocortisone [Cortef] 20 mg PO DAILY@1300 12/06/23 12/06/23 History Allergies Allergy/AdvReac Type Severity Reaction Status Date / Time sulfamethoxazole Allergy Rash/Hives Verified 12/06/23 13:31 [From Bactrim] trimethoprim [From Bactrim] Allergy Rash/Hives Verified 12/06/23 13:31 Physical Exam Vitals: Vital Signs Temp Pulse Pulse Resp BP Pulse Ox 12/07/23 12:38 98.7 F 84 17 98/63 96 12/07/23 07:17 98.2 F 77 16 101/64 92 L 12/07/23 01:50 98.1 F 78 20 105/66 96 12/06/23 19:28 97.6 F 72 18 115/72 93 L 12/06/23 17:51 97.4 F L 71 18 109/71 93 L Intake and Output 12/06/23 12/07/23 12/07/23 22:59 06:59 14:59 Intake Total 100 Balance 100 Intake: Intake, IV Titration 100 Amount Piperacillin-Tazobactam 3 100 .375 gm In Sodium Chloride 0.9% 100 ml @ 25 mls/hr IVPB Q8HR [facility] Rx# :[id number] Other: Voiding Method Toilet Toilet # Voids 2 Weight 117.48 kg 117.48 kg - Constitutional General appearance: cooperative, no acute distress - EENT Eyes: EOMI, scleral icterus - Respiratory Respiratory: bilateral: CTA - Cardiovascular Rhythm: regular - Gastrointestinal General gastrointestinal: no distended, normal bowel sounds, soft, tenderness Localized gastrointestinal: tender: RUQ (Negative Pastor sign) - Integumentary Integumentary: jaundiced - Neurologic Neurologic: CNII-XII intact Results CBC & Chem 7: 12/07/23 05:55 12/07/23 05:55 Labs: Abnormal Lab Results - Last 24 Hours (Table) 12/07/23 12/07/23 12/07/23 Range/Units 05:55 05:55 13:12 WBC 18.86 H (4.50-10.00) X 10*3/uL Plt Count 66 L (140-440) X 10*3/uL Immature Gran # 0.12 H (0.00-0.04) X 10*3/uL Neutrophils # 14.38 H (1.80-7.70) X 10*3/uL Monocytes # 1.68 H (0.20-1.00) X 10*3/uL Eosinophils # 0.72 H (0.04-0.35) X 10*3/uL Immature Plt Fraction 7.4 H (1.1-6.1) % PT 16.9 H (10.0-12.5) sec INR 1.7 H (<1.2) Anion Gap 12.30 H (4.00-12.00) mmol/L Calcium 7.4 L (8.7-10.3) mg/dL Total Bilirubin 2.7 H (0.3-1.2) mg/dL AST 291 H (13-35) U/L ALT 218 H (8-44) U/L Alkaline Phosphatase 223 H (41-126) U/L Total Protein 5.0 L (6.2-8.2) g/dL Albumin 2.7 L (3.8-4.9) g/dL Albumin/Globulin Ratio 1.17 L (1.60-3.17) Ratio Microbiology - Last 24 Hours (Table) 12/06/23 14:14 Blood Culture Gram Stain - Preliminary Blood CT scan - abdomen: report reviewed, image reviewed MRI - abdomen: report reviewed, image reviewed Assessment and Plan (1) Stage III breast cancer in female Current Visit: Yes Status: Acute Code(s): C50.919 - MALIGNANT NEOPLASM OF UNSP SITE OF UNSPECIFIED FEMALE BREAST SNOMED Code(s): 27299271 (2) Hepatic lesion Current Visit: Yes Status: Acute Code(s): K76.9 - LIVER DISEASE, UNSPECIFIED SNOMED Code(s): 945895116 (3) Transaminitis Current Visit: Yes Status: Acute Code(s): R74.01 - ELEVATION OF LEVELS OF LIVER TRANSAMINASE LEVELS SNOMED Code(s): 748854873 (4) Thrombocytopenia Current Visit: Yes Status: Acute Code(s): D69.6 - THROMBOCYTOPENIA, UNSPECIFIED SNOMED Code(s): 150243612 Plan: #Transaminitis with hepatic lesion -Noted to have nausea with dry heaving following episode with URI over the past week -Labs in clinic noted hepatocellular and cholestatic transaminitis, which was also noted on admission -Gallbladder ultrasound noted pericholecystic fluid surrounding the gallbladder along with hepatic lesions -MRI of the liver noted left hepatic lobe lesion measuring 5.1 cm -Hepatocellular and cholestatic transaminitis has improved slightly since adm ission -It is not clear if this is secondary to infectious etiology or due to metastatic triple negative breast cancer to the liver -Acute hepatitis panel ordered -Surgical consultation has been done with recommendations pending review of imaging -If there is no indication for surgery, she will need biopsy of the largest liver lesion through interventional radiology -If surgical intervention such as cholecystectomy is pursued, liver biopsy could be obtained at this time -We will plan on discussing the case with the surgical team #Stage IIIA triple negative breast cancer -Underwent neoadjuvant chemoimmunotherapy with carboplatin/Taxol/Keytruda for 4 cycles followed by 3 cycles of AC plus Keytruda -Treatment was complicated by adrenal insufficiency secondary to Keytruda, cycle 4 of AC plus Keytruda omitted -Bilateral mastectomy performed at [facility] on 05/11/2023 noted pathologic complete response -Given concern for liver lesions noted on MRI of the liver, additional staging workup with CT of the chest and Medicine bone scan will be ordered Clover Johnson MD
[2023-12-07] MEDS ORDERED: RX INFO: IV CONTRAST WAS GIVEN 1 EACH MISC MISCELLANE PRN (14:57)
--- NOTE | 2023-12-07 15:58 | P.PN ---
Subjective Progress Note Date: 12/07/23 Patient is a 43-year-old female with known history of breast cancer status post surgery and chemotherapy in March 2023 and radiation in August 2023 and adrenal insufficiency. Patient presents to ER with complaints of nausea, vomiting and abdominal pain.. Patient states that she has been having symptoms for the past 2 weeks and is also having generalized weakness. Abdominal pain is mainly diffuse and also back pain. Denies any complaints of fever or chills at home. Denies any headache or dizziness or blurred vision. No hematuria or dysuria. Denies any issues with constipation. On admission blood pressure 95/58 pulse is 101 respiration 20 and pulse ox 97% on room air. CT of the abdomen pelvis showed small amount of free fluid in the posterior cul-de-sac. Cycle 3.6 cm liver hypodensity in the left lobe. Neoplasm,Focal fatty infiltration are within the differential diagnostic considerations. Gallbladder and bile ducts unusual appearance of gallbladder. Ultrasound gallbladder follow -up recommended. Ultrasound gallbladder showed multiple hypoechoic lesion left hepatic lobe. Metastatic disease not excluded. Further characterization with contrast MRI is advised. Thick gallbladder wall with pericholecystic fluid. Laboratory data showed WBC 13.6 hemoglobin 15.3 and platelets 73 Sodium 139 potassium 3.4 chloride 108 bicarb is 26 Lactic acid 2.3 calcium Total bili 3.6 AST 495 ALT 279 and alk phos 272 and lipase level 31 Urinalysis showed cloudy with increased specific gravity and 1+ ketones and trace leukocyte esterase. WBC 7 and squamous epithelial cells 31 12/07/2023 Patient is seen and evaluated in follow-up today underwent an MRI of the liver which showed a slightly suboptimal study with nonspecific characteristics of the dominant left hepatic lobe lesion with subtle smaller multiple lesions noted throughout the liver with metastatic disease needed to be considered recommending biopsy. Interventional radiology is consulted for biopsy of the liver. Additional imaging including CT of the chest as well as bone scan was ordered per oncology and pending at this time. General surgery consulted as well and awaiting evaluation of the MRI and further discussion of possible surgical intervention. Patient is maintained on clear liquids and continues to report nausea and abdominal pain. Will add Reglan as needed as well and continue with Zofran. Patient is afebrile with no reported chest pain or shortness of breath. Patient has been up and walking multiple times as tolerated. Review of systems: Constitutional: No reports of fatigue, fever, or chills Cardiovascular: No reports of chest pain or palpitations Respiratory: No reports of shortness of breath or cough GI: reports of continued nausea, no vomiting, or diarrhea, continued abdominal pain : No reports of dysuria or retention Neurovascular: No reports of weakness or numbness All medications have been reviewed PHYSICAL EXAMINATION: Patient is sitting up in the bed comfortably, no acute distress, awake alert and oriented.. Well-developed, well-nourished, obese HEENT: Normocephalic. Neck is supple. Pupils reactive. Nostrils clear. Oral cavity is moist. Neck reveals no JVD, carotid bruits, or thyromegaly. CHEST EXAMINATION: Trachea is central. Symmetrical expansion. Lung ruffin clear to auscultation and percussion. CARDIAC: Normal S1, S2 with no gallops. No murmurs ABDOMEN: Soft. Bowel sounds present. No right upper quadrant tenderness. No guarding or rigidity. Extremities: reveal no edema. No clubbing or cyanosis Neurologically awake, alert, oriented x3 with well-coordinated movements. No focal deficits noted Skin: No rash or skin lesions. Psychiatric: Cooperative. Non-suicidal Musculoskeletal: No joint swelling or deformity. Normal range of motion. Assessment: Abdominal pain with multiple left hepatic lobe lesions likely metastatic Intractable nausea and vomiting and unable to tolerate oral intake secondary to above Thickened gallbladder wall with pericholecystic fluid as per ultrasound abdomen Elevated liver enzymes and hyperbilirubinemia Leukocytosis Lactic acidosis likely due to tissue hypoperfusion. Hypokalemia History of breast cancer status post chemo in March 2023 and radiation in August 2023 Adrenal insufficiency on hydrocortisone at home Obesity with BMI 35.1 GI and DVT prophylaxis with PPI and Lovenox subcu Plan: Patient will be continued on IV hydration, symptomatic management for nausea and vomiting and continue with pain management. Patient continues to report persistent nausea and will add Zofran and Reglan and continue as needed General surgery following awaiting to review MRI imaging. Continue clear liquids for now. CT chest as well as a nuclear medicine bone scan ordered per oncology and pending at this time Oncology following and has consulted interventional radiology for possible liver biopsy. Continue with home medications and follow closely. Encouraged to increase activity as tolerated Due to multiple complex medical issues, prognosis is guarded The impression and plan of care has been dictated by Vanna Stevens, Nurse Practitioner as directed. Dr. Anthony MD I have performed a history and examination and MDM of this patient, discussed the same with the dictator, and agree with the dictator's assessment and plan as written ,documented as a scribe. Based on total visit time, I have performed more than 50% of the visit. Objective - Vital Signs Vital signs: Vital Signs Temp 98.4 F 12/07/23 15:22 Pulse 91 12/07/23 15:22 Resp 14 12/07/23 15:22 BP 114/66 12/07/23 15:22 Pulse Ox 91 L 12/07/23 15:22 FiO2 Intake & Output 12/06/23 12/07/23 12/07/23 18:59 06:59 18:59 Intake Total 100 Balance 100 Weight 117.48 kg 117.48 kg Intake: Intake, IV Titration 100 Amount Piperacillin-Tazobactam 3 100 .375 gm In Sodium Chloride 0.9% 100 ml @ 25 mls/hr IVPB Q8HR [facility] Rx# :[id number] Other: Voiding Method Toilet Toilet # Voids 2 - Labs CBC & Chem 7: 12/07/23 05:55 12/07/23 05:55 Labs: Abnormal Lab Results - Last 24 Hours (Table) 12/07/23 12/07/23 12/07/23 Range/Units 05:55 05:55 13:12 WBC 18.86 H (4.50-10.00) X 10*3/uL Plt Count 66 L (140-440) X 10*3/uL Immature Gran # 0.12 H (0.00-0.04) X 10*3/uL Neutrophils # 14.38 H (1.80-7.70) X 10*3/uL Monocytes # 1.68 H (0.20-1.00) X 10*3/uL Eosinophils # 0.72 H (0.04-0.35) X 10*3/uL Immature Plt Fraction 7.4 H (1.1-6.1) % PT 16.9 H (10.0-12.5) sec INR 1.7 H (<1.2) Anion Gap 12.30 H (4.00-12.00) mmol/L Calcium 7.4 L (8.7-10.3) mg/dL Total Bilirubin 2.7 H (0.3-1.2) mg/dL AST 291 H (13-35) U/L ALT 218 H (8-44) U/L Alkaline Phosphatase 223 H (41-126) U/L Total Protein 5.0 L (6.2-8.2) g/dL Albumin 2.7 L (3.8-4.9) g/dL Albumin/Globulin Ratio 1.17 L (1.60-3.17) Ratio Microbiology - Last 24 Hours (Table) 12/06/23 14:14 Blood Culture Gram Stain - Preliminary Blood
--- NOTE | 2023-12-07 15:58 | P.PN ---
Subjective Progress Note Date: 12/07/23 CHIEF COMPLAINT: Abdominal pain HISTORY OF PRESENT ILLNESS: Patient continues to have right upper quadrant abdominal pain. She reports that it is slightly less than yesterday. Her nausea is better. MRI of the liver had reported lesions in the liver as well as in the spleen. Patient evaluated by oncology service. They have consulted interventional radiology for liver biopsy. Afebrile. WBC is up from 13-18. Platelets 66 INR 1.7 potassium 3.8 total bilirubin 2.7 AST 291 ALT 218 alk phos 223 patient still reporting her urine is dark. Positive blood culture for gram positive bacilli PHYSICAL EXAM: VITAL SIGNS: Reviewed. GENERAL: Well-developed in no acute distress. HEENT: Mild scleral icterus noted ABDOMEN: Soft. Nondistended. Right upper quadrant tenderness NEUROLOGIC: Alert and oriented. Cranial nerves II through XII grossly intact. ASSESSMENT: 1. Abdominal pain 2. Liver lesions left hepatic lobe 3. thickened gallbladder wall with pericholecystic fluid noted on ultrasound 4. Elevated lactic acid level 5. History of breast cancer 6. Positive blood culture PLAN: -Continue to monitor -Agree with IR consult for liver lesion -Continue antibiotics -Continue oncology workup -Advance diet to full liquids Physician [employer] Nurse note has been reviewed by physician. Signing provider agrees with the documented findings, assessment, and plan of care. Objective - Vital Signs Vital signs: Vital Signs Temp 98.4 F 12/07/23 15:22 Pulse 91 12/07/23 15:22 Resp 14 12/07/23 15:22 BP 114/66 12/07/23 15:22 Pulse Ox 91 L 12/07/23 15:22 FiO2 Intake & Output 12/06/23 12/07/23 12/07/23 18:59 06:59 18:59 Intake Total 100 Balance 100 Weight 117.48 kg 117.48 kg Intake: Intake, IV Titration 100 Amount Piperacillin-Tazobactam 3 100 .375 gm In Sodium Chloride 0.9% 100 ml @ 25 mls/hr IVPB Q8HR [facility] Rx# :[id number] Other: Voiding Method Toilet Toilet # Voids 2 - Labs CBC & Chem 7: 12/07/23 05:55 12/07/23 05:55 Labs: Abnormal Lab Results - Last 24 Hours (Table) 12/07/23 12/07/23 12/07/23 Range/Units 05:55 05:55 13:12 WBC 18.86 H (4.50-10.00) X 10*3/uL Plt Count 66 L (140-440) X 10*3/uL Immature Gran # 0.12 H (0.00-0.04) X 10*3/uL Neutrophils # 14.38 H (1.80-7.70) X 10*3/uL Monocytes # 1.68 H (0.20-1.00) X 10*3/uL Eosinophils # 0.72 H (0.04-0.35) X 10*3/uL Immature Plt Fraction 7.4 H (1.1-6.1) % PT 16.9 H (10.0-12.5) sec INR 1.7 H (<1.2) Anion Gap 12.30 H (4.00-12.00) mmol/L Calcium 7.4 L (8.7-10.3) mg/dL Total Bilirubin 2.7 H (0.3-1.2) mg/dL AST 291 H (13-35) U/L ALT 218 H (8-44) U/L Alkaline Phosphatase 223 H (41-126) U/L Total Protein 5.0 L (6.2-8.2) g/dL Albumin 2.7 L (3.8-4.9) g/dL Albumin/Globulin Ratio 1.17 L (1.60-3.17) Ratio Microbiology - Last 24 Hours (Table) 12/06/23 14:14 Blood Culture Gram Stain - Preliminary Blood
[2023-12-07] MEDS: METOCLOPRAMIDE 5 MG/ML 2 ML VIAL IVP PRN (16:03)
[2023-12-07] MEDS: PHYTONADIONE ORAL 5 MG/5 ML ORAL.SYRG PO STA (17:29)
--- NOTE | 2023-12-07 18:50 | CT ---
EXAMINATION TYPE: CT chest w con DATE OF EXAM: 12/07/2023 COMPARISON: None HISTORY: Triple negative breast CA w/liver lesion. CT DLP: 510.9 mGycm, Automated exposure control for dose reduction was used. CONTRAST: Performed injected with 100ml mL of Isovue 300. TECHNIQUE: Axial images were obtained at 5 mm thick sections. Reconstructed images are reviewed on [facility] computer in the coronal plane. FINDINGS: Portion of the thyroid visualized is normal. Bilateral breast prostheses are present. Minimal pneumonitis changes in the right midlung. Series 4 image 28. No enlarged mediastinal or hilar adenopathy is evident. Multiple scattered small lymph nodes are pr esent. The ascending aorta diameter at the level of the main pulmonary artery is 3.9 cm. The main pu lmonary artery diameter at the bifurcation is 3.[address] sections are obtained through the upper abdomen. There is ill-defined hypodensity within t he left lobe liver measuring approximately 4.5 cm. Additional workup is recommended. Some minimal pericholecystic fluid may be present. IMPRESSION: 1. Minimal pneumonitis change right mid lung. 2. Suspicious adenopathy not evident. There are small mediastinal lymph nodes present. 3. Hepatic hypodensity very ill-defined and poorly visualized on the current exam.
[2023-12-07 22:58] LABS: Hepatitis A Antibody IgM Nonreactive (Nonreactive); Hepatitis B Core IgM Nonreactive (Nonreactive); Hepatitis B Surface Antigen Nonreactive (Nonreactive); Hepatitis C IgG Antibody Nonreactive (Nonreactive)
[2023-12-08 08:46] LABS: INR 1.5 (<1.2); Prothrombin Time 15.4 sec (10.0-12.5)
--- NOTE | 2023-12-08 11:03 | NM ---
EXAMINATION TYPE: NM bone scan whole body DATE OF EXAM: 12/08/2023 COMPARISON: CT 12/06/2023 CLINICAL INDICATION: Female, 43 years old with history of Triple negative breast cancer with liver [place]; Delayed whole-body scanning was performed following the injection of 25.5 mCi Tc 99m MDP. Images acq uired 3.25 hours post injection. FINDINGS: Multiple foci of increased radiotracer accumulation involving the bilateral ribs compatible with meta static disease. There is focal increased uptake involving the left femoral supracondylar region media lly. This is also suspicious for lesion. Small focal area of increased radiotracer accumulation noted to involve the right hemisacrum on the posterior image and somewhat of a mottled area of increased u ptake left hemisacrum. In retrospect recent CT of 12/06/2023 demonstrates focal area of increased scle rosis involving the left ilium adjacent to the SI joint. No right hemisacral lesion seen at CT. Area of sclerosis adjacent to the left SI joint on the sacral side may simply be degenerative in nature ho wever indeterminate. No additional areas of focal increased uptake seen at this time. IMPRESSION: Findings felt to reflect rib lesions bilaterally compatible with metastatic disease. Also suspicious focal uptake involving the left ilium adjacent to the SI joint and left femoral supracondylar region medially.
[2023-12-08] MEDS: ONDANSETRON 4 MG/2 ML VIAL IVP PRN (12:50)
[2023-12-08 12:56] LABS: INR 1.6 (<1.2); Prothrombin Time 16.2 sec (10.0-12.5)
[2023-12-08 13:09] LABS: Mean Platelet Volume 9.8
[2023-12-08 13:16] LABS: Platelet Count 47 k/uL (150-450)
--- NOTE | 2023-12-08 15:27 | P.PN ---
Subjective Progress Note Date: 12/08/23 Principal diagnosis: Triple negative breast cancer -Afebrile, no acute events overnight -Blood cultures notable for Bacillus cereus bacteremia -Has persistent nausea with right upper quadrant discomfort with persistent malaise Objective - Vital Signs Vital signs: Vital Signs Temp 98.3 F 12/08/23 13:26 Pulse 80 12/08/23 13:26 Resp 16 12/08/23 13:26 BP 93/54 12/08/23 13:26 Pulse Ox 93 L 12/08/23 13:26 FiO2 Intake & Output 12/07/23 12/08/23 12/08/23 18:59 06:59 18:59 Intake Total 1080 0 Balance 1080 0 Weight 117.48 kg Intake: Oral 1080 Blood Product 0 Unit 0 Other: Voiding Method Toilet Toilet # Voids 1 - Constitutional Constitutional Comment(s): Fatigued General appearance: Present: cooperative, no acute distress - EENT Eyes: Present: EOMI, scleral icterus - Respiratory Respiratory: bilateral: CTA - Cardiovascular Rhythm: regular - Gastrointestinal General gastrointestinal: Present: normal bowel sounds, tenderness. Absent: distended Localized gastrointestinal: tender: RUQ - Integumentary Integumentary: Absent: rash - Neurologic Neurologic: Present: CNII-XII intact. Absent: focal deficits - Labs CBC & Chem 7: 12/08/23 11:59 12/07/23 05:55 Labs: Abnormal Lab Results - Last 24 Hours (Table) 12/08/23 12/08/23 12/08/23 Range/Units 08:06 11:59 11:59 Plt Count 47 L (150-450) k/uL PT 15.4 H 16.2 H (10.0-12.5) sec INR 1.5 H 1.6 H (<1.2) Microbiology - Last 24 Hours (Table) 12/06/23 14:14 Blood Culture Gram Stain - Preliminary Blood Blood Culture - Preliminary Bacillus species Not Anthracis 12/06/23 14:14 Blood Culture - Preliminary Blood Assessment and Plan (1) Stage III breast cancer in female Current Visit: Yes Status: Acute Code(s): C50.919 - MALIGNANT NEOPLASM OF UNSP SITE OF UNSPECIFIED FEMALE BREAST SNOMED Code(s): 35201663 (2) Hepatic lesion Current Visit: Yes Status: Acute Code(s): K76.9 - LIVER DISEASE, UNSPECIFIED SNOMED Code(s): 337078225 (3) Transaminitis Current Visit: Yes Status: Acute Code(s): R74.01 - ELEVATION OF LEVELS OF LIVER TRANSAMINASE LEVELS SNOMED Code(s): 615788828 (4) Thrombocytopenia Current Visit: Yes Status: Acute Code(s): D69.6 - THROMBOCYTOPENIA, UNSPECIFIED SNOMED Code(s): 752845430 (5) Bacteremia due to Gram-positive bacteria Current Visit: Yes Status: Acute Code(s): R78.81 - BACTEREMIA SNOMED Code(s): 134788321831 Plan: #Transaminitis with hepatic lesion -Noted to have nausea with dry heaving following episode with URI over the past week -Labs in clinic noted hepatocellular and cholestatic transaminitis, which was also noted on admission -Gallbladder ultrasound noted pericholecystic fluid surrounding the gallbladder along with hepatic lesions -MRI of the liver noted left hepatic lobe lesion measuring 5.1 cm -Hepatocellular and cholestatic transaminitis has improved slightly since admission -It is not clear if this is secondary to infectious etiology or due to metastatic triple negative breast cancer to the liver -Acute hepatitis panel negative -Blood cultures positive for bacillus cereus. Did note history of her children being sick within the past few weeks -We will discuss case with surgery regarding cholecystectomy -If surgery is performed, biopsy of the liver lesion could be obtained at that time Bacillus cereus bacteremia -Nausea with RUQ tenderness and transaminitis -Currently on zosyn -Infectious disease consult ordered for additional management recommendations -Zofran increased to 8 mg IV q8h PRN #Stage IIIA triple negative breast cancer -Underwent neoadjuvant chemoimmunotherapy with carboplatin/Taxol/Keytruda for 4 cycles followed by 3 cycles of AC plus Keytruda -Treatment was complicated by adrenal insufficiency secondary to Keytruda, cycle 4 of AC plus Keytruda omitted -Bilateral mastectomy performed at [facility] on 05/11/2023 noted pathologic complete response -CT chest revealed no acute findings -Bone scan report was not reviewed during my encounter, but did note uptake in the bilateral ribs, right hemisacrum, and left ilium adjacent to the SI joint and left femoral supracondylar region medially concerning for metastatic disease -This will be discussed with Ms. Jones and her during this hospitalization Clvoer Johnson MD
--- NOTE | 2023-12-08 15:30 | P.PN ---
Subjective Progress Note Date: 12/08/23 CHIEF COMPLAINT: Abdominal pain HISTORY OF PRESENT ILLNESS: Patient continues to have right upper quadrant abdominal pain with severe nausea. Patient had bone scan completed today, results noted. White count elevated 18 yesterday platelets 47 INR 1.6 interventional radiology cannot do liver biopsy today due to elevated INR. 1 positive blood culture likely contaminant PHYSICAL EXAM: VITAL SIGNS: Reviewed. GENERAL: Well-developed in no acute distress. HEENT: Mild scleral icterus noted ABDOMEN: Soft. Nondistended. Right upper quadrant tenderness NEUROLOGIC: Alert and oriented. Cranial nerves II through XII grossly intact. ASSESSMENT: 1. Right upper quadrant abdominal pain 2. Acute cholecystitis ultrasound reported thickened gallbladder wall with pericholecystic fluid 3. Liver lesions left hepatic lobe 4. Elevated lactic acid level 5. History of breast cancer PLAN: -Patient scheduled for laparoscopic cholecystectomy and liver biopsy tomorrow with Dr. Vuong -Case was discussed with patient and family at bedside. Informed patient that initially a HIDA scan was ordered for further evaluation of her right upper quadrant abdominal pain but due to bone scan that was completed today HIDA scan would not be able to be completed until Wednesday or Wednesday. Dr. Vuong recommen ded to proceed with the cholecystectomy due to patient having leukocytosis with right upper quadrant pain and nausea. Informed patient that she would be receiving vitamin K for the elevated INR and platelets for her thrombocytopenia. Patient informed that her right upper quadrant pain could be gallbladder as well as related to the liver lesions. But that the white count is likely a contributing factor that there is a cholecystitis picture. Patient is agreeable to proceed with cholecystectomy and liver lesion biopsy tomorrow with Dr. Vuong. -N.p.o. after midnight -Due to elevated INR vitamin K 10 mg IV ordered. Platelet transfusion ordered for platelets of 47 -Repeat labs in a.m. -Continue antibiotics -Continue oncology workup -Continue full liquid diet for today Physician [employer] note has been reviewed by physician. Signing provider agrees with the documented findings, assessment, and plan of care. Objective - Vital Signs Vital signs: Vital Signs Temp 98.3 F 12/08/23 13:26 Pulse 80 12/08/23 13:26 Resp 16 12/08/23 13:26 BP 93/54 12/08/23 13:26 Pulse Ox 93 L 12/08/23 13:26 FiO2 Intake & Output 12/07/23 12/08/23 12/08/23 18:59 06:59 18:59 Intake Total 1080 Balance 1080 Weight 117.48 kg Intake: Oral 1080 Other: Voiding Method Toilet Toilet # Voids 1 - Labs CBC & Chem 7: 12/08/23 11:59 12/07/23 05:55 Labs: Abnormal Lab Results - Last 24 Hours (Table) 12/08/23 12/08/23 12/08/23 Range/Units 08:06 11:59 11:59 Plt Count 47 L (150-450) k/uL PT 15.4 H 16.2 H (10.0-12.5) sec INR 1.5 H 1.6 H (<1.2) Microbiology - Last 24 Hours (Table) 12/06/23 14:14 Blood Culture Gram Stain - Preliminary Blood Blood Culture - Preliminary Bacillus species Not Anthracis 12/06/23 14:14 Blood Culture - Preliminary Blood
[2023-12-08] MEDS: PHYTONADIONE 10 MG in SODIUM CHLORIDE 0.9% 50 ML IVPB STA (16:56)
[2023-12-08] MEDS: PANTOPRAZOLE 40 MG/10 ML VIAL IVP SCH (20:09)
--- NOTE | 2023-12-08 22:43 | P.CONS ---
History of Present Illness - Reason for Consult Consult date: 12/08/23 Bacteremia Requesting physician: Clover Johnson - Chief Complaint Abdominal pain and vomiting x few days - History of Present Illness Patient is a 43-year-old female with a past medical history significant for metastatic breast cancer for the patient has been treated with the surgery radiation chemotherapy, patient did have previously Mediport that has been subsequent discontinued patient presented to hospital 2 days ago for evaluation of nausea and vomiting and this patient symptom has been going on for about a week before presentation to the hospital has been complaining of mostly nausea vomiting not able to keep anything down also complaining of pain to the right upper quadrant abdominal area patient describes the pain to be sharp moderate intensity without any radiation patient denies high-grade fever or any chills and no fever has been recorded during this hospital stay patient was not tachycardic hypotensive or hypoxic and no need for supplemental oxygen patient did have marginal 13.6 which was subsequently up to 18.86 creatinine was 0.8 michelle er enzymes are elevated urine mildly positive hepatitis panel negative patient did have a abdominal pelvis CT density within the left lobe neoplasm considered unusual appearance of the gallbladder subsequently did have a ultrasound of the gallbladder multiple hypoechoic echoic lesion left hepatic lobe metastatic disease not excluded gallbladder wall with pericholecystic fluid patient has been diagnosed with cholecystitis blood culture has been obtained which grew Bacillus patient informed of this consultation patient is currently on Zosyn Review of Systems Positive point and negatives has been mentioned in the HPI, complete review of systems was performed and all other systems are negative Past Medical History Past Medical History: Cancer Additional Past Medical History / Comment(s): new dx. breast cancer, Adrenal History of Any Multi-Drug Resistant Organisms: None Reported Past Surgical History: Breast Surgery, Tonsillectomy Additional Past Surgical History / Comment(s): recent breast bx. Past Anesthesia/Blood Transfusion Reactions: No Reported Reaction Smoking Status: Never smoker - Past Family History Father Family Medical History: Cancer Additional Family Medical History / Comment(s): brain, paternal grandmother breast cancer Medications and Allergies Home Medications Medication Instructions Recorded Confirmed Type Ergocalciferol [Vitamin D2 (1250 1,250 mcg PO QMONTHLY 10/15/22 12/13/23 History Mcg = 12740 Iu)] Hydrocortisone [Cortef] 10 mg PO DAILY@1800 12/06/23 12/13/23 History Hydrocortisone [Cortef] 20 mg PO DAILY@1300 12/06/23 12/13/23 History cefUROXime axetiL [Ceftin] 500 mg PO BID 7 Days #14 tab 12/11/23 12/13/23 Rx metroNIDAZOLE [Flagyl] 500 mg PO TID 7 Days #21 tab 12/11/23 12/13/23 Rx Allergies Allergy/AdvReac Type Severity Reaction Status Date / Time sulfamethoxazole Allergy Rash/Hives Verified 12/13/23 18:08 [From Bactrim] trimethoprim [From Bactrim] Allergy Rash/Hives Verified 12/13/23 18:08 Physical Exam Vitals: Vital Signs Temp Pulse Pulse Resp BP BP Pulse Ox 12/08/23 15:41 99 F 79 18 120/71 90 L 12/08/23 15:20 98.3 F 76 18 114/76 91 L 12/08/23 13:26 98.3 F 80 16 93/54 93 L 12/08/23 07:51 98.7 F 71 17 121/68 93 L 12/08/23 01:57 97.9 F 65 18 114/66 93 L 12/07/23 20:24 98.5 F 75 12 104/63 92 L 12/07/23 20:00 98.2 F 80 20 113/67 91 L Intake and Output 12/08/23 12/08/23 12/08/23 06:59 14:59 22:59 Intake Total 0 Balance 0 Intake: Blood Product 0 Unit 0 Other: # Voids 1 GENERAL DESCRIPTION: Middle-aged female lying in bed, no distress. No tachypnea or accessory muscle of respiration use. HEENT: Shows Pallor , no scleral icterus. Oral mucous membrane is dry. No pharyngeal erythema or thrush NECK: Trachea central, no thyromegaly. LUNGS: Unlabored breathing. Clear to auscultation anteriorly. No wheeze or crackle. HEART: S1, S2, regular rate and rhythm. No loud murmur ABDOMEN: Soft, right upper quadrant tenderness , EXTREMITIES: No edema of feet. SKIN: No rash, no masses palpable. NEUROLOGICAL: The patient is awake, alert, oriented x3, mood and affect normal. Results CBC & Chem 7: 12/11/23 04:05 12/11/23 04:05 Labs: Abnormal Lab Results - Last 24 Hours (Table) 12/08/23 12/08/23 12/08/23 Range/Units 08:06 11:59 11:59 Plt Count 47 L (150-450) k/uL PT 15.4 H 16.2 H (10.0-12.5) sec INR 1.5 H 1.6 H (<1.2) Microbiology - Last 24 Hours (Table) 12/06/23 14:14 Blood Culture Gram Stain - Preliminary Blood Blood Culture - Preliminary Bacillus species Not Anthracis 12/06/23 14:14 Blood Culture - Preliminary Blood Assessment and Plan (1) Acute cholecystitis Status: Acute Code(s): K81.0 - ACUTE CHOLECYSTITIS SNOMED Code(s): 16629251 (2) Bacteremia due to Gram-positive bacteria Status: Acute Code(s): R78.81 - BACTEREMIA SNOMED Code(s): 144106016026 Plan: 1patient presented to hospital with acute nausea vomiting right upper quadrant abdominal pain and this patient who did have elevated liver enzymes ultrasound has been suspicious for cholecystitis General surgery on the case and pending for cholecystectomy scheduled for tomorrow, patient adequately covered with Zosyn 2-sulfa allergy 3-positive blood culture with bacillus species likely skin contamination we will repeat blood culture to document clearance no need for vancomycin Question concern answered We will follow on clinical condition and cultures to further adjust medication if needed Thank you for this consultation we will follow the patient along with you Dictation was produced using [employer] dictation software. please excuse any grammatical, word or spelling errors. Time with Patient: Greater than 30
[2023-12-09] MEDS: HYDROcodone/APAP 5-325MG 1 EACH TAB PO PRN (01:12)
--- NOTE | 2023-12-09 04:52 | P.PN ---
Subjective Progress Note Date: 12/08/23 Patient is a 43-year-old female with known history of breast cancer status post surgery and chemotherapy in March 2023 and radiation in August 2023 and adrenal insufficiency. Patient presents to ER with complaints of nausea, vomiting and abdominal pain.. Patient states that she has been having symptoms for the past 2 weeks and is also having generalized weakness. Abdominal pain is mainly diffuse and also back pain. Denies any complaints of fever or chills at home. Denies any headache or dizziness or blurred vision. No hematuria or dysuria. Denies any issues with constipation. On admission blood pressure 95/58 pulse is 101 respiration 20 and pulse ox 97% on room air. CT of the abdomen pelvis showed small amount of free fluid in the posterior cul-de-sac. Cycle 3.6 cm liver hypodensity in the left lobe. Neoplasm,Focal fatty infiltration are within the differential diagnostic considerations. Gallbladder and bile ducts unusual appearance of gallbladder. Ultrasound gallbladder follow -up recommended. Ultrasound gallbladder showed multiple hypoechoic lesion left hepatic lobe. Metastatic disease not excluded. Further characterization with contrast MRI is advised. Thick gallbladder wall with pericholecystic fluid. Laboratory data showed WBC 13.6 hemoglobin 15.3 and platelets 73 Sodium 139 potassium 3.4 chloride 108 bicarb is 26 Lactic acid 2.3 calcium Total bili 3.6 AST 495 ALT 279 and alk phos 272 and lipase level 31 Urinalysis showed cloudy with increased specific gravity and 1+ ketones and trace leukocyte esterase. WBC 7 and squamous epithelial cells 31 12/07/2023 Patient is seen and evaluated in follow-up today underwent an MRI of the liver which showed a slightly suboptimal study with nonspecific characteristics of the dominant left hepatic lobe lesion with subtle smaller multiple lesions noted throughout the liver with metastatic disease needed to be considered recommending biopsy. Interventional radiology is consulted for biopsy of the liver. Additional imaging including CT of the chest as well as bone scan was ordered per oncology and pending at this time. General surgery consulted as well and awaiting evaluation of the MRI and further discussion of possible surgical intervention. Patient is maintained on clear liquids and continues to report nausea and abdominal pain. Will add Reglan as needed as well and continue with Zofran. Patient is afebrile with no reported chest pain or shortness of breath. Patient has been up and walking multiple times as tolerated. 12/08/2023 Patient is seen and evaluated in follow-up underwent CT of the chest which was negative for acute findings. Bone scan ordered and patient was tentatively scheduled for possible liver biopsy with interventional radiology. INR was above 1.5 and awaiting for repeat. Patient continues to have right upper quadrant abdominal pain with concerns of cholecystitis and general surgery following and patient is agreeable to surgery which is tentatively being scheduled for 12/09/2023. Will give a dose of vitamin K and platelet transfusion with repeat labs in the a.m. Patient will be n.p.o. at midnight. Review of systems: Constitutional: No reports of fatigue, fever, or chills Cardiovascular: No reports of chest pain or palpitations Respiratory: No reports of shortness of breath or cough GI: reports of continued nausea, no vomiting, or diarrhea, continued right upper quadrant abdominal pain : No reports of dysuria or retention Neurovascular: No reports of weakness or numbness All medications have been reviewed PHYSICAL EXAMINATION: Patient is sitting up in the bed , no acute distress, awake alert and oriented.. Flat affect, well-developed, well-nourished, obese HEENT: Normocephalic. Neck is supple. Pupils reactive. Nostrils clear. Oral cavity is moist. Neck reveals no JVD, carotid bruits, or thyromegaly. CHEST EXAMINATION: Trachea is central. Symmetrical expansion. Lung ruffin clear to auscultation and percussion. CARDIAC: Normal S1, S2 with no gallops. No murmurs ABDOMEN: Soft. Bowel sounds present. right upper quadrant tenderness. No gua rding or rigidity. Extremities: reveal no edema. No clubbing or cyanosis Neurologically awake, alert, oriented x3 with well-coordinated movements. No focal deficits noted Skin: No rash or skin lesions. Psychiatric: Cooperative. Non-suicidal Musculoskeletal: No joint swelling or deformity. Normal range of motion. Assessment: Abdominal pain with multiple left hepatic lobe lesions likely metastatic Intractable nausea and vomiting and unable to tolerate oral intake secondary to above Thickened gallbladder wall with pericholecystic fluid as per ultrasound abdomen, concerns for acute cholecystitis, scheduled tentatively for laparoscopic cholecystectomy on 12/09/2023 Abnormal bone scan including multiple areas of radiotracer uptake involving bilateral ribs, left hemisacrum, left SI joint suspicious of metastatic disease Elevated liver enzymes and hyperbilirubinemia Leukocytosis Lactic acidosis likely due to tissue hypoperfusion. Improved Hypokalemia, replaced and improved History of breast cancer status post chemo in March 2023 and radiation in August 2023 Adrenal insufficiency on hydrocortisone at home Obesity with BMI 35.1 GI and DVT prophylaxis with PPI and Lovenox subcu Full code Plan: Patient will be continued on IV hydration, symptomatic management for nausea and vomiting and continue with pain management. Patient continues to report persistent nausea with right upper quadrant tenderness. General surgery following and discussing possible cholecystectomy on 12/09/2023 Will give a unit of platelets and follow-up on repeat labs in the a.m. Patient's INR is 1.5 and initially attempted interventional radiology consult for possible liver biopsy although INR needs to be less than 1.5. General surgery is aware and will perform liver biopsy during cholecystectomy Patient to be n.p.o. at midnight Patient underwent bone scan with abnormal uptake and multilevel areas including the rib, left hemisacrum, left SI joint with high suspicion for metastatic disease. Oncology is following and will discuss further regarding findings Continue with home medications and follow closely. Encouraged to increase activity as tolerated Due to multiple complex medical issues, prognosis is guarded The impression and plan of care has been dictated by Vanna Stevens, Nurse Practitioner as directed. Dr. Anthony MD I have performed a history and examination and MDM of this patient, discussed the same with the dictator, and agree with the dictator's assessment and plan as written ,documented as a scribe. Based on total visit time, I have performed more than 50% of the visit. Objective - Vital Signs Vital signs: Vital Signs Temp 98.7 F 12/08/23 07:51 Pulse 71 12/08/23 07:51 Resp 17 12/08/23 07:51 BP 121/68 12/08/23 07:51 Pulse Ox 93 L 12/08/23 07:51 FiO2 Intake & Output 12/07/23 12/08/23 12/08/23 18:59 06:59 18:59 Intake Total 1080 Balance 1080 Weight 117.48 kg Intake: Oral 1080 Other: Voiding Method Toilet Toilet # Voids 1 - Labs CBC & Chem 7: 12/08/23 11:59 12/07/23 05:55 Labs: Abnormal Lab Results - Last 24 Hours (Table) 12/07/23 12/07/23 12/07/23 Range/Units 05:55 05:55 13:12 WBC 18.86 H (4.50-10.00) X 10*3/uL Plt Count 66 L (140-440) X 10*3/uL Immature Gran # 0.12 H (0.00-0.04) X 10*3/uL Neutrophils # 14.38 H (1.80-7.70) X 10*3/uL Monocytes # 1.68 H (0.20-1.00) X 10*3/uL Eosinophils # 0.72 H (0.04-0.35) X 10*3/uL Immature Plt Fraction 7.4 H (1.1-6.1) % PT 16.9 H (10.0-12.5) sec INR 1.7 H (<1.2) Anion Gap 12.30 H (4.00-12.00) mmol/L Calcium 7.4 L (8.7-10.3) mg/dL Total Bilirubin 2.7 H (0.3-1.2) mg/dL AST 291 H (13-35) U/L ALT 218 H (8-44) U/L Alkaline Phosphatase 223 H (41-126) U/L Total Protein 5.0 L (6.2-8.2) g/dL Albumin 2.7 L (3.8-4.9) g/dL Albumin/Globulin Ratio 1.17 L (1.60-3.17) Ratio // Range/Units 08:06 WBC (4.50-10.00) X 10*3/uL Plt Count (140-440) X 10*3/uL Immature Gran # (0.00-0.04) X 10*3/uL Neutrophils # (1.80-7.70) X 10*3/uL Monocytes # (0.20-1.00) X 10*3/uL Eosinophils # (0.04-0.35) X 10*3/uL Immature Plt Fraction (1.1-6.1) % PT 15.4 H (10.0-12.5) sec INR 1.5 H (<1.2) Anion Gap (4.00-12.00) mmol/L Calcium (8.7-10.3) mg/dL Total Bilirubin (0.3-1.2) mg/dL AST (13-35) U/L ALT (8-44) U/L Alkaline Phosphatase (41-126) U/L Total Protein (6.2-8.2) g/dL Albumin (3.8-4.9) g/dL Albumin/Globulin Ratio (1.60-3.17) Ratio Microbiology - Last 24 Hours (Table) 12/06/23 14:14 Blood Culture Gram Stain - Preliminary Blood Blood Culture - Preliminary Bacillus species Not Anthracis 12/06/23 14:14 Blood Culture - Preliminary Blood
[2023-12-09 07:33] LABS: Basophils # (A) 0.1 k/uL (0-0.2); Basophils % (A) 0 %; Eosinophils % (A) 0 %; HCT 39.5 % (34.0-46.0); HGB 12.7 gm/dL (11.4-16.0); Hypochromasia Slight; Lymphocytes # (A) 2.2 k/uL (1.0-4.8); Lymphocytes % (A) 13 %; MCH 29.5 pg (25.0-35.0); MCHC 32.1 g/dL (31.0-37.0); Mean Platelet Volume 9.2; Monocytes # (A) 1.3 k/uL (0-1.0); Monocytes % (A) 7 %; Neutrophils # (A) 13.1 k/uL (1.3-7.7); Neutrophils % (A) 78 %; RBC 4.29 m/uL (3.80-5.40); RDW 14.6 % (11.5-15.5); WBC 16.9 k/uL (3.8-10.6)
[2023-12-09 07:47] LABS: ALT 137 U/L (4-34); AST 267 U/L (14-36); African American GFR (CKD) >90 (>60 ml/min/1.73 sqM); Albumin/Globulin Ratio 0.7; Alkaline Phosphatase 216 U/L (38-126); Anion Gap 4 mmol/L; Blood Urea Nitrogen 12 mg/dL (7-17); Calcium 7.2 mg/dL (8.4-10.2); Carbon Dioxide 22 mmol/L (22-30); Chloride 112 mmol/L (98-107); Globulin 2.7 g/dL; Glucose 71 mg/dL (74-99); Non-African American GFR(CKD) >90 (>60 ml/min/1.73 sqM); Potassium 3.5 mmol/L (3.5-5.1); Sodium 138 mmol/L (137-145); Total Protein 4.7 g/dL (6.3-8.2)
[2023-12-09 07:48] LABS: Platelet Count 68 k/uL (150-450)
[2023-12-09 08:00] LABS: INR 1.6 (<1.2); Prothrombin Time 16.3 sec (10.0-12.5)
--- NOTE | 2023-12-09 08:23 | CDI ---
Date: 12/09/2023 From: Татьяна Peralta Phone: [phone] Admit Date: 12/07/2023 11:25:00 AM Patient Name: Itzel Jones Visit Number: [id number] Discharge Date: ATTENTION: The Clinical Documentation Specialists (CDI) and [facility] Coding Staff appreciate your assistance in clarifying documentation. Please respond to the clarification below the line at the bottom and electronically sign. The CDI & [facility] Coding staff will review the response and follow-up if needed. Please note: Queries are made part of the Legal Health Record. If you have any questions, please contact the author of this message via ITS. Dr. Ramana Cruz: The Registered Dietitian assessment on 12/06 indicates this patient meets criteria for acute severe malnutrition. Based on this information and the findings below, is there an additional diagnosis that is clinically appropriate for this patient? History/Risk Factors: Adrenal insufficiency, Breast cancer sp bilateral mastectomy and chemotherapy who presents with complaints of nausea, vomiting and abdominal pain Clinical Indicators: 12/06 RD Assessment, Weight: 117.48 kg, Height 6 ft, BMI 35.1, MST 2 12/06 Assessment, Diagnosis: "Acute severe malnutrition Related to physiological condition causing decreased energy intake as evidenced by 3.7% weight loss x1 week < 50% EER for >2 weeks, pt declines ensure clear." 12/05, 12/06 Total Protein: 6.0, 5.0 Treatment: Consult RD RD recommends Ensure clear- patient refuses Clear liquid diet on 12/05, Full liquid diet 12/06, NPO after midnight 12/08 Is there an additional diagnosis that is clinically appropriate for this patient? [ x ] Severe Protein-Calorie Malnutrition [ ] No additional diagnosis/Not clinically significant [ ] Other condition, please specify [ ] Unable to Determine MTDD
[2023-12-09] MEDS: PHYTONADIONE 10 MG in SODIUM CHLORIDE 0.9% 50 ML IVPB STA ×2 (10:11→13:30)
[2023-12-09] MEDS: HYDROCORTISONE SUCCINATE 100 MG/2 ML VIAL IV SCH (10:13)
[2023-12-09] MEDS ORDERED: HYDROCORTISONE SUCCINATE 100 MG/2 ML VIAL IV SCH (12:00)
[2023-12-09 12:06] LABS: INR 1.6 (<1.2); Prothrombin Time 16.4 sec (10.0-12.5)
--- NOTE | 2023-12-09 12:57 | P.PN ---
Subjective Progress Note Date: 12/09/23 CHIEF COMPLAINT: Abdominal pain HISTORY OF PRESENT ILLNESS: Patient continues to have right upper quadrant abdominal pain with severe nausea. She reports that she is not feeling any better. She is scheduled for laparoscopic cholecystectomy today with liver biopsy. Platelets did come up from 47-68 after platelet transfusion. Patient's INR is remaining the same at 1.6 even after the vitamin K 10 mg given. Afebrile. WBC is down from 18-16 total bilirubin is up to 4.0 AST 267 ALT 137 and alk phos 216 PHYSICAL EXAM: VITAL SIGNS: Reviewed. GENERAL: Well-developed in no acute distress. HEENT: scleral icterus noted ABDOMEN: Soft. Nondistended. Right upper quadrant tenderness NEUROLOGIC: Alert and oriented. Cranial nerves II through XII grossly intact. ASSESSMENT: 1. Acute cholecystitis ultrasound reported thickened gallbladder wall with pericholecystic fluid 2. Liver lesions left hepatic lobe 3. Elevated lactic acid level 4. History of breast cancer PLAN: -Patient scheduled for laparoscopic cholecystectomy and liver biopsy today with Dr. Vuong -Patient scheduled to receive another platelet transfusion for platelets of 68. Unfortunately there are no platelets in house. Will transfuse platelets when they are available. -Patient receiving another dose of 10 mg of vitamin K IV for INR 1.6. Repeat PT/INR ordered and is 1.6. Another dose of Vitamin K 10 given -Continue antibiotics -Continue oncology workup -Keep NPO Physician Business Services Representative note has been reviewed by physician. Signing provider agrees with the documented findings, assessment, and plan of care. Objective - Vital Signs Vital signs: Vital Signs Temp 98.2 F 12/09/23 12:01 Pulse 70 12/09/23 12:01 Resp 18 12/09/23 12:01 BP 120/69 12/09/23 12:01 Pulse Ox 94 L 12/09/23 12:01 FiO2 Intake & Output 12/08/23 12/09/23 12/09/23 18:59 06:59 18:59 Intake Total 787 590 Balance 787 590 Intake: Oral 540 590 Blood Product 247 Platelet Pheresis Pas 247 Psoralen Unit [id number] Other: Voiding Method Toilet Toilet # Voids 2 - Labs CBC & Chem 7: 12/09/23 06:35 12/09/23 06:35 Labs: Abnormal Lab Results - Last 24 Hours (Table) 12/08/23 12/08/23 12/09/23 Range/Units 11:59 11:59 06:35 WBC 16.9 H (3.8-10.6) k/uL Plt Count 47 L 68 L (150-450) k/uL Neutrophils # 13.1 H (1.3-7.7) k/uL Monocytes # 1.3 H (0-1.0) k/uL PT 16.2 H (10.0-12.5) sec INR 1.6 H (<1.2) Chloride (98-107) mmol/L Glucose (74-99) mg/dL Calcium (8.4-10.2) mg/dL Total Bilirubin (0.2-1.3) mg/dL AST (14-36) U/L ALT (4-34) U/L Alkaline Phosphatase (38-126) U/L Total Protein (6.3-8.2) g/dL Albumin (3.5-5.0) g/dL 12/09/23 12/09/23 12/09/23 Range/Units 06:35 06:35 11:39 WBC (3.8-10.6) k/uL Plt Count (150-450) k/uL Neutrophils # (1.3-7.7) k/uL Monocytes # (0-1.0) k/uL PT 16.3 H 16.4 H (10.0-12.5) sec INR 1.6 H 1.6 H (<1.2) Chloride 112 H (98-107) mmol/L Glucose 71 L (74-99) mg/dL Calcium 7.2 L (8.4-10.2) mg/dL Total Bilirubin 4.0 H (0.2-1.3) mg/dL AST 267 H (14-36) U/L ALT 137 H (4-34) U/L Alkaline Phosphatase 216 H (38-126) U/L Total Protein 4.7 L (6.3-8.2) g/dL Albumin 2.0 L (3.5-5.0) g/dL Microbiology - Last 24 Hours (Table) 12/06/23 14:14 Blood Culture Gram Stain - Final Blood Blood Culture - Final Bacillus species Not Anthracis 12/06/23 14:14 Blood Culture - Preliminary Blood
--- NOTE | 2023-12-09 14:47 | P.PN ---
Subjective Progress Note Date: 12/09/23 Principal diagnosis: Reason for follow-up is positive blood culture and cholecystitis Patient is a 43-year-old female with a past medical history significant for metastatic breast cancer for which the patient has been treated with the surgery radiation chemotherapy, patient did have previously Mediport that has been subsequent discontinued patient presented to hospital for evaluation of nausea and vomiting, did have elevated liver enzymes and concern for possible cholecystitis patient also have a positive blood culture prompting this consultation On today's evaluation that is 12/09/2023,the patient remains to be afebrile, patient is on room air not requiring supplemental oxygen and denies any shortness of breath no chest pain or cough.Patient still complaining of some nausea but no vomiting right upper quadrant discomfort no diarrhea. Patient white count is down to 16.9, creatinine is 0.73 no enzymes remains to be elevated blood culture repeat pending Objective - Vital Signs Vital signs: Vital Signs Temp 98.5 F 12/09/23 14:24 Pulse 77 12/09/23 14:24 Resp 18 12/09/23 14:24 BP 112/66 12/09/23 14:24 Pulse Ox 92 L 12/09/23 14:24 FiO2 Intake & Output 12/08/23 12/09/23 12/09/23 18:59 06:59 18:59 Intake Total 787 590 0 Balance 787 590 0 Intake: Oral 540 590 Blood Product 247 0 Platelet Pheresis Pas 0 Psoralen Unit [id number] Platelet Pheresis Pas 247 Psoralen Unit [id number] Other: Voiding Method Toilet Toilet # Voids 2 - Exam GENERAL DESCRIPTION: Middle-aged female lying in bed in no distress RESPIRATORY SYSTEM: Unlabored breathing , clear to auscultation anteriorly HEART: S1 S2 regular rate and rhythm , ABDOMEN: Soft , right upper quadrant tenderness EXTREMITIES: No edema feet - Labs CBC & Chem 7: 12/09/23 06:35 12/09/23 06:35 Labs: Abnormal Lab Results - Last 24 Hours (Table) 12/09/23 12/09/23 12/09/23 Range/Units 06:35 06:35 06:35 WBC 16.9 H (3.8-10.6) k/uL Plt Count 68 L (150-450) k/uL Neutrophils # 13.1 H (1.3-7.7) k/uL Monocytes # 1.3 H (0-1.0) k/uL PT 16.3 H (10.0-12.5) sec INR 1.6 H (<1.2) Chloride 112 H (98-107) mmol/L Glucose 71 L (74-99) mg/dL Calcium 7.2 L (8.4-10.2) mg/dL Total Bilirubin 4.0 H (0.2-1.3) mg/dL AST 267 H (14-36) U/L ALT 137 H (4-34) U/L Alkaline Phosphatase 216 H (38-126) U/L Total Protein 4.7 L (6.3-8.2) g/dL Albumin 2.0 L (3.5-5.0) g/dL 12/09/23 Range/Units 11:39 WBC (3.8-10.6) k/uL Plt Count (150-450) k/uL Neutrophils # (1.3-7.7) k/uL Monocytes # (0-1.0) k/uL PT 16.4 H (10.0-12.5) sec INR 1.6 H (<1.2) Chloride (98-107) mmol/L Glucose (74-99) mg/dL Calcium (8.4-10.2) mg/dL Total Bilirubin (0.2-1.3) mg/dL AST (14-36) U/L ALT (4-34) U/L Alkaline Phosphatase (38-126) U/L Total Protein (6.3-8.2) g/dL Albumin (3.5-5.0) g/dL Microbiology - Last 24 Hours (Table) 12/06/23 14:14 Blood Culture Gram Stain - Final Blood Blood Culture - Final Bacillus species Not Anthracis 12/06/23 14:14 Blood Culture - Preliminary Blood Assessment and Plan (1) Leukocytosis Current Visit: Yes Status: Acute Code(s): D72.829 - ELEVATED WHITE BLOOD CELL COUNT, UNSPECIFIED SNOMED Code(s): 224186833 (2) Acute cholecystitis Current Visit: Yes Status: Acute Code(s): K81.0 - ACUTE CHOLECYSTITIS SNOMED Code(s): 12644084 (3) Bacteremia due to Gram-positive bacteria Current Visit: Yes Status: Acute Code(s): R78.81 - BACTEREMIA SNOMED Code(s): 910956480713 (4) Transaminitis Current Visit: Yes Status: Acute Code(s): R74.01 - ELEVATION OF LEVELS OF LIVER TRANSAMINASE LEVELS SNOMED Code(s): 045144169 Plan: 1patient presented to hospital with acute nausea vomiting right upper quadrant abdominal pain and this patient who did have elevated liver enzymes ultrasound has been suspicious for cholecystitis General surgery on the case and pending for cholecystectomy scheduled for this afternoon patient is currently covered with Zosyn to continue white count is trending down 2-positive blood culture with bacillus species likely skin contamination, blood culture has been repeated to document clearance no need for vancomycin Dictation was produced using [employer] dictation software. please excuse any grammatical, word or spelling errors. Time with Patient: Less than 30
[2023-12-09 15:54] LABS: INR 1.7 (<1.2); Prothrombin Time 16.9 sec (10.0-12.5)
[2023-12-09] MEDS: IV FLUID CONTINUATION 1,000 ML IV ONE (16:28)
[2023-12-09] MEDS ORDERED: LIDOCAINE 1% (10MG/ML) FOR IV START INTRADERMA PRN (16:33)
[2023-12-09] MEDS: HYDROCORTISONE SUCCINATE 100 MG/2 ML VIAL IVP ONE (17:00)
[2023-12-09] MEDS: ONDANSETRON 4 MG/2 ML VIAL IVP ONE (17:00)
[2023-12-09] MEDS ORDERED: GLYCOPYRROLATE 0.2 MG/ML 2 ML VIAL ONE (17:21)
[2023-12-09] MEDS ORDERED: MIDAZOLAM 2 MG/2 ML VIAL ONE (17:21)
[2023-12-09] MEDS ORDERED: PROPOFOL 10 MG/ML 20 ML VIAL IV ONE (17:21)
[2023-12-09] MEDS ORDERED: fentaNYL (PF) 50 MCG/ML 2 ML AMP ONE (17:21)
[2023-12-09] MEDS ORDERED: NEOSTIGMINE 1 MG/ML 10 ML VIAL ONE (17:21)
[2023-12-09] MEDS ORDERED: LIDOCAINE 1% INJ 10MG/ML (20 ML MDV) ONE (17:21)
[2023-12-09] MEDS ORDERED: HYDROmorphone (PF) 1 MG/ML ONE (17:21)
[2023-12-09] MEDS ORDERED: ONDANSETRON 4 MG/2 ML VIAL ONE (17:21)
[2023-12-09] MEDS ORDERED: ROCURONIUM 10 MG/ML (5 ML VIAL) IV ONE (17:21)
[2023-12-09] MEDS ORDERED: SUCCINYLCHOLINE CHLORIDE 200 MG/10 ML VIAL IV ONE (17:21)
[2023-12-09] MEDS: LACTATED RINGERS 1,000 ML IV SCH (17:34)
[2023-12-09] MEDS: DEXAMETHASONE SOD PHOSPHATE 4 MG/ML 1 ML VIAL IV ONE (17:34)
[2023-12-09] MEDS: SCOPOLAMINE 1 MG/72 HR PATCH TRANSDERM ONE (17:35)
[2023-12-09] MEDS: LIDOCAINE 1%-EPI 1:100,000 20 ML VIAL SQ ONE (17:52)
--- NOTE | 2023-12-09 18:15 | P.OP ---
Date of Procedure: 12/09/23 Preoperative Diagnosis: cholecystitis Metastatic breast cancer to liver Postoperative Diagnosis: same Procedure(s) Performed: laparoscopically cholecystectomy Laparoscopic liver biopsy Anesthesia: GUILLERMO Surgeon: Shlomo Vuong Estimated Blood Loss (ml): 25 Pathology: other (gallbladder, liver) Condition: stable Disposition: PACU Description of Procedure: The patient was placed on the operating table. The patient received a general endotracheal tube anesthesia. The patients abdomen was prepped and draped in the usual sterile fashion. Through an infraumbilical stab incision, the fascia of the anterior abdominal wall was grasped with a pair of Kochers and the n the Veress needle was placed in the peritoneal cavity. Position of the Veress needle was confirmed with positive drop test. The abdomen was then insufflated. After adequate insufflation, the 10 mm trocar was placed in the peritoneal cavity. Following this the laparoscope was placed in the peritoneal cavity. The patient was placed in the head-up, right side up position and then a 5 mm trocar was placed in the right lateral and right subcostal position under direct visualization. A 8 mm trocar was placed in the epigastric position. The liver appeared to have multiple metastatic nodules scattered throughout the left lobe of liver. There were leukoplastic 1-2 mm nodule seen throughout the liver. The gallbladder was inflamed. The gallbladder was grasped in the fundus and infundibulum. Traction on the gallbladder was placed in the lateral and the cephalad positions. The triangle of Calot was visualized.. The cystic duct was bluntly dissected until the union of the cystic duct and common bile duct was seen. A critical view of safety was achieved. The cystic duct was then divided and sealed with the Harmonic scissors. A PDS Endoloop was then placed throughout the cystic duct stump. The cystic artery divided and sealed with the Harmonic scissors. The gallbladder was then removed from the liver bed using Harmonic scissors. The gallbladder was then extracted through the epigastric port site. Operative field was checked for any bleeding spots and Harmonic scissors was used to coagulate the liver bed. There were multiple metastatic nodules on the liver. Using the Harmonic scissors a liver biopsy was performed. The specimens of pathology.The abdomen was irrigated. The trocars were removed. The skin was closed using interrupted 3-0 Vicryl suture. Dermabond dressing were applied. The patient tolerated the procedure well.
[2023-12-09] MEDS: ALBUTEROL NEBULIZED 2.5 MG/3 ML INHALATION ONE (18:27)
[2023-12-09] MEDS: SODIUM CHLORIDE 0.9% 1,000 ML IV ONE (18:40)
--- NOTE | 2023-12-10 05:40 | P.PN ---
Subjective Progress Note Date: 12/09/23 Patient is a 43-year-old female with known history of breast cancer status post surgery and chemotherapy in March 2023 and radiation in August 2023 and adrenal insufficiency. Patient presents to ER with complaints of nausea, vomiting and abdominal pain.. Patient states that she has been having symptoms for the past 2 weeks and is also having generalized weakness. Abdominal pain is mainly diffuse and also back pain. Denies any complaints of fever or chills at home. Denies any headache or dizziness or blurred vision. No hematuria or dysuria. Denies any issues with constipation. On admission blood pressure 95/58 pulse is 101 respiration 20 and pulse ox 97% on room air. CT of the abdomen pelvis showed small amount of free fluid in the posterior cul-de-sac. Cycle 3.6 cm liver hypodensity in the left lobe. Neoplasm,Focal fatty infiltration are within the differential diagnostic considerations. Gallbladder and bile ducts unusual appearance of gallbladder. Ultrasound gallbladder follow -up recommended. Ultrasound gallbladder showed multiple hypoechoic lesion left hepatic lobe. Metastatic disease not excluded. Further characterization with contrast MRI is advised. Thick gallbladder wall with pericholecystic fluid. Laboratory data showed WBC 13.6 hemoglobin 15.3 and platelets 73 Sodium 139 potassium 3.4 chloride 108 bicarb is 26 Lactic acid 2.3 calcium Total bili 3.6 AST 495 ALT 279 and alk phos 272 and lipase level 31 Urinalysis showed cloudy with increased specific gravity and 1+ ketones and trace leukocyte esterase. WBC 7 and squamous epithelial cells 31 12/07/2023 Patient is seen and evaluated in follow-up today underwent an MRI of the liver which showed a slightly suboptimal study with nonspecific characteristics of the dominant left hepatic lobe lesion with subtle smaller multiple lesions noted throughout the liver with metastatic disease needed to be considered recommending biopsy. Interventional radiology is consulted for biopsy of the liver. Additional imaging including CT of the chest as well as bone scan was ordered per oncology and pending at this time. General surgery consulted as well and awaiting evaluation of the MRI and further discussion of possible surgical intervention. Patient is maintained on clear liquids and continues to report nausea and abdominal pain. Will add Reglan as needed as well and continue with Zofran. Patient is afebrile with no reported chest pain or shortness of breath. Patient has been up and walking multiple times as tolerated. 12/08/2023 Patient is seen and evaluated in follow-up underwent CT of the chest which was negative for acute findings. Bone scan ordered and patient was tentatively scheduled for possible liver biopsy with interventional radiology. INR was above 1.5 and awaiting for repeat. Patient continues to have right upper quadrant abdominal pain with concerns of cholecystitis and general surgery following and patient is agreeable to surgery which is tentatively being scheduled for 12/09/2023. Will give a dose of vitamin K and platelet transfusion with repeat labs in the a.m. Patient will be n.p.o. at midnight. 12/09/2023 Patient is seen this morning and currently NPO for cholecystectomy with general surgery today. Patient will also receive a liver biopsy with surgery as well. Patient continues to report RUQ tenderness and pain, nausea, and generalized weakness. Patient reports has not been able to tolerate much oral intake in 2-3 weeks. Patient is afebrile and denies chest pain or shortness of breath. NPO for now and will resume diet per surgery recommendations. Oncology following as well as ID. Encouraged frequent walking. Patient to receive vitamin K for an INR of 1.6 and will receive platelets prior to surgery Review of systems: Constitutional: No reports of fatigue, fever, or chills Cardiovascular: No reports of chest pain or palpitations Respiratory: No reports of shortness of breath or cough GI: reports of continued nausea, no vomiting, or diarrhea, continued right upper quadrant abdominal pain : No reports of dysuria or retention Neurovascular: No reports of weakness or numbness All medications have been reviewed PHYSICAL EXAMINATION: Patient is sitting up in the bed , no acute distress, awake alert and oriented.. Flat affect, well-developed, well-nourished, obese HEENT: Normocephalic. Neck is supple. Pupils reactive. Nostrils clear. Oral cavity is moist. Neck reveals no JVD, carotid bruits, or thyromegaly. CHEST EXAMINATION: Trachea is central. Symmetrical expansion. Lung ruffin clear to auscultation and percussion. CARDIAC: Normal S1, S2 with no gallops. No murmurs ABDOMEN: Soft. Bowel sounds present. right upper quadrant tenderness. No guarding or rigidity. Extremities: reveal no edema. No clubbing or cyanosis Neurologically awake, alert, oriented x3 with well-coordinated movements. No focal deficits noted Skin: No rash or skin lesions. Psychiatric: Cooperative. Non-suicidal Musculoskeletal: No joint swelling or deformity. Normal range of motion. Assessment: Abdominal pain with multiple left hepatic lobe lesions likely metastatic Intractable nausea and vomiting and unable to tolerate oral intake secondary to above Thickened gallbladder wall with pericholecystic fluid as per ultrasound abdomen, concerns for acute cholecystitis, scheduled tentatively for laparoscopic cholecystectomy today 12/09/2023 Abnormal bone scan including multiple areas of radiotracer uptake involving bilateral ribs, left hemisacrum, left SI joint suspicious of metastatic disease Elevated liver enzymes and hyperbilirubinemia Leukocytosis Lactic acidosis likely due to tissue hypoperfusion. Improved Hypokalemia, replaced and improved History of breast cancer status post chemo in March 2023 and radiation in August 2023 Adrenal insufficiency on hydrocortisone at home Obesity with BMI 35.1 GI and DVT prophylaxis with PPI and Lovenox subcu Full code Plan: Patient will be continued on IV hydration, symptomatic management for nausea and vomiting and continue with pain management. Patient continues to report persistent nausea with right upper quadrant tenderness. General surgery following and scheduled to undergo cholecystectomy and liver biopsy today 12/09/2023 Will give another unit of platelets and also vitamin k with an INR of 1.6. Patient to be n.p.o.and diet resumed once cleared by surgery Patient underwent bone scan with abnormal uptake and multilevel areas including the rib, left hemisacrum, left SI joint with high suspicion for metastatic disease. Oncology is following and will discuss further regarding findings Continue with home medications and follow closely. Encouraged to increase activity as tolerated Due to multiple complex medical issues, prognosis is guarded The impression and plan of care has been dictated by Vanna Stevens, Nurse Practitioner as directed. Dr. Anthony MD I have performed a history and examination and MDM of this patient, discussed the same with the dictator, and agree with the dictator's assessment and plan as written ,documented as a scribe. Based on total visit time, I have performed more than 50% of the visit. Objective - Vital Signs Vital signs: Vital Signs Temp 98 F 12/10/23 02:00 Pulse 70 12/10/23 02:00 Resp 16 12/10/23 02:00 BP 96/60 12/10/23 02:00 Pulse Ox 90 L 12/10/23 02:00 FiO2 Intake & Output 04/25/24 04/25/24 04/26/24 06:59 18:59 06:59 Intake Total 590 1046 10 Output Total 25 Balance 590 1021 10 Weight 117.48 kg Intake: IV 750 10 Invasive Line 1 10 Oral 590 0 Blood Product 296 Platelet Pheresis Pas 296 Psoralen Unit [id number] Output: Estimated Blood Loss 25 Other: Voiding Method Toilet Toilet Bedside Commode # Voids 5 - Labs CBC & Chem 7: 12/09/23 06:35 12/09/23 06:35 Labs: Abnormal Lab Results - Last 24 Hours (Table) 12/09/23 12/09/23 12/09/23 Range/Units 06:35 06:35 06:35 WBC 16.9 H (3.8-10.6) k/uL Plt Count 68 L (150-450) k/uL Neutrophils # 13.1 H (1.3-7.7) k/uL Monocytes # 1.3 H (0-1.0) k/uL PT 16.3 H (10.0-12.5) sec INR 1.6 H (<1.2) Chloride 112 H (98-107) mmol/L Glucose 71 L (74-99) mg/dL Calcium 7.2 L (8.4-10.2) mg/dL Total Bilirubin 4.0 H (0.2-1.3) mg/dL AST 267 H (14-36) U/L ALT 137 H (4-34) U/L Alkaline Phosphatase 216 H (38-126) U/L Total Protein 4.7 L (6.3-8.2) g/dL Albumin 2.0 L (3.5-5.0) g/dL 12/09/23 12/09/23 Range/Units 11:39 14:59 WBC (3.8-10.6) k/uL Plt Count (150-450) k/uL Neutrophils # (1.3-7.7) k/uL Monocytes # (0-1.0) k/uL PT 16.4 H 16.9 H (10.0-12.5) sec INR 1.6 H 1.7 H (<1.2) Chloride (98-107) mmol/L Glucose (74-99) mg/dL Calcium (8.4-10.2) mg/dL Total Bilirubin (0.2-1.3) mg/dL AST (14-36) U/L ALT (4-34) U/L Alkaline Phosphatase (38-126) U/L Total Protein (6.3-8.2) g/dL Albumin (3.5-5.0) g/dL Microbiology - Last 24 Hours (Table) 12/06/23 14:14 Blood Culture - Preliminary Blood 12/06/23 14:14 Blood Culture Gram Stain - Final Blood Blood Culture - Final Bacillus species Not Anthracis
[2023-12-10 10:56] LABS: Basophils # (A) 0.05 X 10*3/uL (0.00-0.10); Basophils % (A) 0.2 %; Eosinophils # (A) 0 X 10*3/uL (0.04-0.35); Eosinophils % (A) 0 %; HCT 40.4 % (37.2-46.3); HGB 12.8 g/dL (12.0-15.0); Immature Platelet Fraction 10.9 % (1.1-6.1); Lymphocytes # (A) 1.47 X 10*3/uL (0.90-5.00); Lymphocytes % (A) 6.3 %; MCH 29.2 pg (27.0-32.0); MCHC 31.7 g/dL (32.0-37.0); Mean Platelet Volume 12.1 FL (9.5-12.2); Monocytes # (A) 2.05 X 10*3/uL (0.20-1.00); Monocytes % (A) 8.8 %; NRBC Per 100 WBC 0 X 10*3/uL (0.00-0.01); Neutrophils # (A) 19.63 X 10*3/uL (1.80-7.70); Neutrophils % (A) 84.1 %; Platelet Count 55 X 10*3/uL (140-440); RBC 4.39 X 10*6/uL (4.10-5.20); RBC Morphology Normal (Normal); RDW 15.8 % (11.5-14.5); WBC 23.34 X 10*3/uL (4.50-10.00)
[2023-12-10 11:04] LABS: ALT 124 U/L (8-44); AST 229 U/L (13-35); Albumin 2.6 g/dL (3.8-4.9); Alkaline Phosphatase 227 U/L (41-126); Blood Urea Nitrogen 18.6 mg/dL (9.0-27.0); Calcium 7.4 mg/dL (8.7-10.3); Carbon Dioxide 20.7 mmol/L (21.6-31.8); Chloride 107 mmol/L (96-109); Globulin 2.6 g/dL (1.6-3.3); Glucose 151 mg/dL (70-110); Potassium 4.2 mmol/L (3.5-5.5); Sodium 138 mmol/L (135-145); Total Bilirubin 2.9 mg/dL (0.3-1.2); Total Protein 5.2 g/dL (6.2-8.2)
--- NOTE | 2023-12-10 15:53 | P.PN ---
Subjective Progress Note Date: 12/10/23 CHIEF COMPLAINT: Abdominal pain HISTORY OF PRESENT ILLNESS: Patient postop day #1 status post lap karla and liver lesion biopsy. Patient reports that her pain and nausea have decreased since surgery. She is tolerating low-fat. Afebrile. WBC is up from 16-23 patient did receive a dose of dexamethasone hemoglobin 12.8 platelets 55 total bilirubin is down from 4-2.9 AST 229 ALT 124 alk phos 227 LFTs mildly decreased PHYSICAL EXAM: VITAL SIGNS: Reviewed. GENERAL: Well-developed in no acute distress. HEENT: scleral icterus noted ABDOMEN: Soft. Nondistended. Incision sites clean dry and intact NEUROLOGIC: Alert and oriented. Cranial nerves II through XII grossly intact. ASSESSMENT: 1. Acute cholecystitis status post laparoscopic cholecystectomy 2. Liver lesions left hepatic lobe 3. Elevated lactic acid level 4. History of breast cancer PLAN: -Continue low-fat diet -Repeat CBC in a.m. -Continue pain management -Incentive spirometer ordered -Encourage patient to ambulate -Continue antibiotics -Follow-up on path results -Continue oncology workup Physician High Speed Warper Tender note has been reviewed by physician. Signing provider agrees with the documented findings, assessment, and plan of care. Objective - Vital Signs Vital signs: Vital Signs Temp 97.7 F 12/10/23 12:05 Pulse 64 12/10/23 12:05 Resp 18 12/10/23 12:05 BP 103/63 12/10/23 12:05 Pulse Ox 91 L 12/10/23 12:05 FiO2 Intake & Output 12/09/23 12/10/23 12/10/23 18:59 06:59 18:59 Intake Total 1046 10 60 Output Total 25 Balance 1021 10 60 Weight 117.48 kg Intake: IV 750 10 Invasive Line 1 10 Oral 0 60 Blood Product 296 Platelet Pheresis Pas 296 Psoralen Unit [id number] Output: Estimated Blood Loss 25 Other: Voiding Method Toilet Bedside Commode # Voids 5 1 - Labs CBC & Chem 7: 12/10/23 07:01 12/10/23 07:01 Labs: Abnormal Lab Results - Last 24 Hours (Table) 12/09/23 12/10/23 12/10/23 Range/Units 14:59 07:01 07:01 WBC 23.34 H (4.50-10.00) X 10*3/uL MCHC 31.7 L (32.0-37.0) g/dL RDW 15.8 H (11.5-14.5) % Plt Count 55 L (140-440) X 10*3/uL Immature Gran # 0.14 H (0.00-0.04) X 10*3/uL Neutrophils # 19.63 H (1.80-7.70) X 10*3/uL Monocytes # 2.05 H (0.20-1.00) X 10*3/uL Eosinophils # 0 L (0.04-0.35) X 10*3/uL Immature Plt Fraction 10.9 H (1.1-6.1) % PT 16.9 H (10.0-12.5) sec INR 1.7 H (<1.2) Carbon Dioxide 20.7 L (21.6-31.8) mmol/L Glucose 151 H (70-110) mg/dL Calcium 7.4 L (8.7-10.3) mg/dL Total Bilirubin 2.9 H (0.3-1.2) mg/dL AST 229 H (13-35) U/L ALT 124 H (8-44) U/L Alkaline Phosphatase 227 H (41-126) U/L Total Protein 5.2 L (6.2-8.2) g/dL Albumin 2.6 L (3.8-4.9) g/dL Albumin/Globulin Ratio 1.00 L (1.60-3.17) Ratio Microbiology - Last 24 Hours (Table) 12/09/23 06:35 Blood Culture - Preliminary Blood 12/06/23 14:14 Blood Culture - Preliminary Blood
--- NOTE | 2023-12-10 16:28 | P.PN ---
Subjective Progress Note Date: 12/10/23 Principal diagnosis: Triple negative breast cancer -Underwent laparoscopic cholecystectomy yesterday with inflamed gallbladder and nodular lesions on the liver concerning for metastases, which were biopsied -No acute events overnight -Noted improved nausea and right upper quadrant abdominal pain today -She is tolerating liquids without complications Objective - Vital Signs Vital signs: Vital Signs Temp 97.7 F 12/10/23 12:05 Pulse 64 12/10/23 12:05 Resp 18 12/10/23 12:05 BP 103/63 12/10/23 12:05 Pulse Ox 91 L 12/10/23 12:05 FiO2 Intake & Output 12/09/23 12/10/23 12/10/23 18:59 06:59 18:59 Intake Total 1046 10 60 Output Total 25 Balance 1021 10 60 Weight 117.48 kg 117.48 kg Intake: IV 750 10 Invasive Line 1 10 Oral 0 60 Blood Product 296 Platelet Pheresis Pas 296 Psoralen Unit [id number] Output: Estimated Blood Loss 25 Other: Voiding Method Toilet Bedside Commode # Voids 5 1 - Constitutional Constitutional Comment(s): Appears more comfortable on today's visit General appearance: Present: cooperative, no acute distress - Respiratory Details: Nonlabored breathing - Cardiovascular Rhythm: regular - Gastrointestinal Gastrointestinal Comment(s): Laparoscopic incision clean/dry/intact General gastrointestinal: Present: soft. Absent: distended, tenderness - Neurologic Neurologic: Present: CNII-XII intact. Absent: focal deficits - Labs CBC & Chem 7: 12/10/23 07:01 12/10/23 07:01 Labs: Abnormal Lab Results - Last 24 Hours (Table) 12/10/23 12/10/23 Range/Units 07:01 07:01 WBC 23.34 H (4.50-10.00) X 10*3/uL MCHC 31.7 L (32.0-37.0) g/dL RDW 15.8 H (11.5-14.5) % Plt Count 55 L (140-440) X 10*3/uL Immature Gran # 0.14 H (0.00-0.04) X 10*3/uL Neutrophils # 19.63 H (1.80-7.70) X 10*3/uL Monocytes # 2.05 H (0.20-1.00) X 10*3/uL Eosinophils # 0 L (0.04-0.35) X 10*3/uL Immature Plt Fraction 10.9 H (1.1-6.1) % Carbon Dioxide 20.7 L (21.6-31.8) mmol/L Glucose 151 H (70-110) mg/dL Calcium 7.4 L (8.7-10.3) mg/dL Total Bilirubin 2.9 H (0.3-1.2) mg/dL AST 229 H (13-35) U/L ALT 124 H (8-44) U/L Alkaline Phosphatase 227 H (41-126) U/L Total Protein 5.2 L (6.2-8.2) g/dL Albumin 2.6 L (3.8-4.9) g/dL Albumin/Globulin Ratio 1.00 L (1.60-3.17) Ratio Microbiology - Last 24 Hours (Table) 12/09/23 06:35 Blood Culture - Preliminary Blood 12/06/23 14:14 Blood Culture - Preliminary Blood Assessment and Plan (1) Stage III breast cancer in female Current Visit: Yes Status: Acute Code(s): C50.919 - MALIGNANT NEOPLASM OF UNSP SITE OF UNSPECIFIED FEMALE BREAST SNOMED Code(s): 69331283 (2) Hepatic lesion Current Visit: Yes Status: Acute Code(s): K76.9 - LIVER DISEASE, UNSPECIFIED SNOMED Code(s): 970808647 (3) Transaminitis Current Visit: Yes Status: Acute Code(s): R74.01 - ELEVATION OF LEVELS OF LIVER TRANSAMINASE LEVELS SNOMED Code(s): 080212156 (4) Thrombocytopenia Current Visit: Yes Status: Acute Code(s): D69.6 - THROMBOCYTOPENIA, UNSPECIFIED SNOMED Code(s): 298129481 (5) Bacteremia due to Gram-positive bacteria Current Visit: Yes Status: Acute Code(s): R78.81 - BACTEREMIA SNOMED Code(s): 393396539084 Plan: #Transaminitis with hepatic lesion -Noted to have nausea with dry heaving following episode with URI over the past week -Labs in clinic noted hepatocellular and cholestatic transaminitis, which was also noted on admission -Gallbladder ultrasound noted pericholecystic fluid surrounding the gallbladder along with hepatic lesions -MRI of the liver noted left hepatic lobe lesion measuring 5.1 cm -Underwent cholecystectomy on 12/09/2023 with noted inflamed gallbladder along with nodular lesions on the liver with biopsy of one of the lesions performed -Clinically, she has improved right upper quadrant pain and nausea -As long as she is able to tolerate oral intake without the use of IV antiemetics and is passing stool, she is cleared for discharge from an oncology perspective Bacillus cereus bacteremia -Nausea with RUQ tenderness and transaminitis -Thought to be potential skin contaminant per ID -Repeat blood culture from 12/09/2023 currently negative -Currently on zosyn #Stage IIIA triple negative breast cancer -Underwent neoadjuvant chemoimmunotherapy with carboplatin/Taxol/Keytruda for 4 cycles followed by 3 cycles of AC plus Keytruda -Treatment was complicated by adrenal insufficiency secondary to Keytruda, cycle 4 of AC plus Keytruda omitted -Bilateral mastectomy performed at [facility] on 05/11/2023 noted pathologic complete response -CT chest revealed no acute findings -Bone scan revealed uptake in the bilateral ribs, right hemisacrum, and left ilium adjacent to the SI joint and left femoral supracondylar region medially concerning for metastatic disease -Findings from surgery as well as nuclear medicine bone scan results were discussed today. 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
--- NOTE | 2023-12-10 17:12 | P.PN ---
Subjective Progress Note Date: 12/10/23 43-year-old female with known history of breast cancer status post surgery and chemotherapy in March 2023 and radiation in August 2023 and adrenal insufficiency. Patient presents to ER with complaints of nausea, vomiting and abdominal pain.. Patient states that she has been having symptoms for the past 2 weeks and is also having generalized weakness. Abdominal pain is mainly diffuse and also back pain. Denies any complaints of fever or chills at home. Denies any headache or dizziness or blurred vision. No hematuria or dysuria. Denies any issues with constipation. On admission blood pressure 95/58 pulse is 101 respiration 20 and pulse ox 97% on room air. CT of the abdomen pelvis showed small amount of free fluid in the posterior cul-de-sac. Cycle 3.6 cm liver hypodensity in the left lobe. Neoplasm,Focal fatty infiltration are within the differential diagnostic considerations. Gallbladder and bile ducts unusual appearance of gallbladder. Ultrasound gallbladder follow-up recommended. Ultrasound gallbladder showed multiple hypoechoic lesion left hepatic lobe. Metastatic disease not excluded. Further characterization with contrast MRI is advised. Thick gallbladder wall with pericholecystic fluid. Laboratory data showed WBC 13.6 hemoglobin 15.3 and platelets 73 Sodium 139 potassium 3.4 chloride 108 bicarb is 26 Lactic acid 2.3 calcium Total bili 3.6 AST 495 ALT 279 and alk phos 272 and lipase level 31 Urinalysis showed cloudy with increased specific gravity and 1+ ketones and trace leukocyte esterase. WBC 7 and squamous epithelial cells 31 Patient is status post laparoscopic cholecystectomy; eager to be discharged Vital signs are reviewed and are stable --Patient discussed with ID and is recommended continued monitoring given white blood count trended up to 23.3 this morning -- Surgery recommending to continue with low-fat diet, continue with pain management, encourage ambulation and IS; possible discharge in next 24 hours if remains stable Objective - Vital Signs Vital signs: Vital Signs Temp 97.6 F 12/10/23 07:07 Pulse 67 12/10/23 07:07 Resp 18 12/10/23 07:07 BP 102/65 12/10/23 07:07 Pulse Ox 90 L 12/10/23 07:07 FiO2 Intake & Output 12/09/23 12/10/23 12/10/23 18:59 06:59 18:59 Intake Total 1046 10 Output Total 25 Balance 1021 10 Weight 117.48 kg Intake: IV 750 10 Invasive Line 1 10 Oral 0 Blood Product 296 Platelet Pheresis Pas 296 Psoralen Unit [id number] Output: Estimated Blood Loss 25 Other: Voiding Method Toilet Bedside Commode # Voids 5 1 - Exam Patient is sitting up in the bed , no acute distress, awake alert and oriented.. Flat affect, well-developed, well-nourished, obese HEENT: Normocephalic. Neck is supple. Pupils reactive. Nostrils clear. Oral cavity is moist. Neck reveals no JVD, carotid bruits, or thyromegaly. CHEST EXAMINATION: Trachea is central. Symmetrical expansion. Lung ruffin clear to auscultation and percussion. CARDIAC: Normal S1, S2 with no gallops. No murmurs ABDOMEN: Soft. Bowel sounds present. right upper quadrant tenderness. No guarding or rigidity. Extremities: reveal no edema. No clubbing or cyanosis Neurologically awake, alert, oriented x3 with well-coordinated movements. No focal deficits noted Skin: No rash or skin lesions. Psychiatric: Cooperative. Non-suicidal Musculoskeletal: No joint swelling or deformity. Normal range of motion. - Labs CBC & Chem 7: 12/10/23 07:01 12/10/23 07:01 Labs: Abnormal Lab Results - Last 24 Hours (Table) 12/09/23 12/10/23 12/10/23 Range/Units 14:59 07:01 07:01 WBC 23.34 H (4.50-10.00) X 10*3/uL MCHC 31.7 L (32.0-37.0) g/dL RDW 15.8 H (11.5-14.5) % Plt Count 55 L (140-440) X 10*3/uL Immature Gran # 0.14 H (0.00-0.04) X 10*3/uL Neutrophils # 19.63 H (1.80-7.70) X 10*3/uL Monocytes # 2.05 H (0.20-1.00) X 10*3/uL Eosinophils # 0 L (0.04-0.35) X 10*3/uL Immature Plt Fraction 10.9 H (1.1-6.1) % PT 16.9 H (10.0-12.5) sec INR 1.7 H (<1.2) Carbon Dioxide 20.7 L (21.6-31.8) mmol/L Glucose 151 H (70-110) mg/dL Calcium 7.4 L (8.7-10.3) mg/dL Total Bilirubin 2.9 H (0.3-1.2) mg/dL AST 229 H (13-35) U/L ALT 124 H (8-44) U/L Alkaline Phosphatase 227 H (41-126) U/L Total Protein 5.2 L (6.2-8.2) g/dL Albumin 2.6 L (3.8-4.9) g/dL Albumin/Globulin Ratio 1.00 L (1.60-3.17) Ratio Microbiology - Last 24 Hours (Table) 12/06/23 14:14 Blood Culture - Preliminary Blood Assessment and Plan Assessment: Abdominal pain with multiple left hepatic lobe lesions likely metastatic Intractable nausea and vomiting and unable to tolerate oral intake secondary to above Thickened gallbladder wall with pericholecystic fluid as per ultrasound abdomen, concerns for acute cholecystitis, scheduled tentatively for laparoscopic cholec ystectomy today 12/09/2023 Abnormal bone scan including multiple areas of radiotracer uptake involving bilateral ribs, left hemisacrum, left SI joint suspicious of metastatic disease Elevated liver enzymes and hyperbilirubinemia Leukocytosis Lactic acidosis likely due to tissue hypoperfusion. Improved Hypokalemia, replaced and improved History of breast cancer status post chemo in March 2023 and radiation in August 2023 Adrenal insufficiency on hydrocortisone at home Obesity with BMI 35.1 GI and DVT prophylaxis with PPI and Lovenox subcu Full code Plan: Patient will be continued on IV hydration, symptomatic management for nausea and vomiting and continue with pain management. Patient continues to report persistent nausea with right upper quadrant tenderness. General surgery following and scheduled to undergo cholecystectomy and liver biopsy today 12/09/2023 Will give another unit of platelets and also vitamin k with an INR of 1.6. Patient to be n.p.o.and diet resumed once cleared by surgery Patient underwent bone scan with abnormal uptake and multilevel areas including the rib, left hemisacrum, left SI joint with high suspicion for metastatic disease. Oncology is following and will discuss further regarding findings Continue with home medications and follow closely. Encouraged to increase activity as tolerated Due to multiple complex medical issues, prognosis is guarded
[2023-12-10 20:14] VITALS: RESP 16
[2023-12-11 02:51] VITALS: TEMP 97.9
[2023-12-11 08:23] VITALS: BP 126/68; PULSE 72
[2023-12-11 09:49] LABS: ALT 109 U/L (8-44); AST 195 U/L (13-35); Albumin 2.6 g/dL (3.8-4.9); Albumin/Globulin Ratio 1.08 Ratio (1.60-3.17); Alkaline Phosphatase 226 U/L (41-126); BUN/Creat Ratio 19.22 Ratio (12.00-20.00); Blood Urea Nitrogen 17.3 mg/dL (9.0-27.0); Calcium 7.4 mg/dL (8.7-10.3); Carbon Dioxide 20.2 mmol/L (21.6-31.8); Chloride 107 mmol/L (96-109); Globulin 2.4 g/dL (1.6-3.3); Glucose 120 mg/dL (70-110); Potassium 4.2 mmol/L (3.5-5.5); Sodium 137 mmol/L (135-145); Total Bilirubin 2.3 mg/dL (0.3-1.2)
[2023-12-11 10:19] LABS: HCT 38.8 % (37.2-46.3); HGB 12.7 g/dL (12.0-15.0); Immature Platelet Fraction 13.2 % (1.1-6.1); MCH 29.2 pg (27.0-32.0); MCHC 32.7 g/dL (32.0-37.0); MCV 89.2 FL (80.0-97.0); Mean Platelet Volume 12.6 FL (9.5-12.2); NRBC Per 100 WBC 0.02 X 10*3/uL (0.00-0.01); Platelet Count 53 X 10*3/uL (140-440); RBC 4.35 X 10*6/uL (4.10-5.20); RDW 16.1 % (11.5-14.5); WBC 27.17 X 10*3/uL (4.50-10.00)
[2023-12-11 10:25] LABS: Basophils # (A) 0.04 X 10*3/uL (0.00-0.10); Basophils % (A) 0.1 %; Eosinophils # (A) 0 X 10*3/uL (0.04-0.35); Eosinophils % (A) 0 %; Lymphocytes # (A) 1.28 X 10*3/uL (0.90-5.00); Lymphocytes % (A) 4.7 %; Monocytes # (A) 2.24 X 10*3/uL (0.20-1.00); Monocytes % (A) 8.2 %; Neutrophils # (A) 23.36 X 10*3/uL (1.80-7.70); Neutrophils % (A) 86.1 %; RBC Morphology Normal (Normal)
--- NOTE | 2023-12-11 11:26 | P.PN ---
Subjective Progress Note Date: 12/10/23 Principal diagnosis: Reason for follow-up is positive blood culture and cholecystitis Patient is a 43-year-old female with a past medical history significant for metastatic breast cancer for which the patient has been treated with the surgery radiation chemotherapy, patient did have previously Mediport that has been subsequent discontinued patient presented to hospital for evaluation of nausea and vomiting, did have elevated liver enzymes and concern for possible cholecystitis patient also have a positive blood culture prompting this consultation On today's evaluation that is Patient is status post laparoscopic cholecystectomy and liver biopsy completed on 12/09/2023 On today's evaluation that is 12/10/2023, the patient continues to be afebrile, the patient is on room air and breathing comfortably, the Pt denies having any chest pain or cough, the patient denies having any nausea vomiting right-sided abdominal pain is slightly different than prior to surgery but not any worsening and no diarrhea. Patient white count is up to 23.34, creatinine 1.0 Objective - Vital Signs Vital signs: Vital Signs Temp 97.7 F 12/10/23 12:05 Pulse 64 12/10/23 12:05 Resp 18 12/10/23 12:05 BP 103/63 12/10/23 12:05 Pulse Ox 91 L 12/10/23 12:05 FiO2 Intake & Output 12/09/23 12/10/23 12/10/23 18:59 06:59 18:59 Intake Total 1046 10 60 Output Total 25 Balance 1021 10 60 Weight 117.48 kg Intake: IV 750 10 Invasive Line 1 10 Oral 0 60 Blood Product 296 Platelet Pheresis Pas 296 Psoralen Unit [id number] Output: Estimated Blood Loss 25 Other: Voiding Method Toilet Bedside Commode # Voids 5 1 - Exam GENERAL DESCRIPTION: Middle-aged female lying in bed in no distress RESPIRATORY SYSTEM: Unlabored breathing , clear to auscultation anteriorly HEART: S1 S2 regular rate and rhythm , ABDOMEN: Soft , right upper quadrant tenderness EXTREMITIES: No edema feet - Labs CBC & Chem 7: 12/11/23 04:05 12/11/23 04:05 Labs: Abnormal Lab Results - Last 24 Hours (Table) 12/09/23 12/10/23 12/10/23 Range/Units 14:59 07:01 07:01 WBC 23.34 H (4.50-10.00) X 10*3/uL MCHC 31.7 L (32.0-37.0) g/dL RDW 15.8 H (11.5-14.5) % Plt Count 55 L (140-440) X 10*3/uL Immature Gran # 0.14 H (0.00-0.04) X 10*3/uL Neutrophils # 19.63 H (1.80-7.70) X 10*3/uL Monocytes # 2.05 H (0.20-1.00) X 10*3/uL Eosinophils # 0 L (0.04-0.35) X 10*3/uL Immature Plt Fraction 10.9 H (1.1-6.1) % PT 16.9 H (10.0-12.5) sec INR 1.7 H (<1.2) Carbon Dioxide 20.7 L (21.6-31.8) mmol/L Glucose 151 H (70-110) mg/dL Calcium 7.4 L (8.7-10.3) mg/dL Total Bilirubin 2.9 H (0.3-1.2) mg/dL AST 229 H (13-35) U/L ALT 124 H (8-44) U/L Alkaline Phosphatase 227 H (41-126) U/L Total Protein 5.2 L (6.2-8.2) g/dL Albumin 2.6 L (3.8-4.9) g/dL Albumin/Globulin Ratio 1.00 L (1.60-3.17) Ratio Microbiology - Last 24 Hours (Table) 12/09/23 06:35 Blood Culture - Preliminary Blood 12/06/23 14:14 Blood Culture - Preliminary Blood Assessment and Plan (1) Leukocytosis Current Visit: Yes Status: Acute Code(s): D72.829 - ELEVATED WHITE BLOOD CELL COUNT, UNSPECIFIED SNOMED Code(s): 349671639 (2) Acute cholecystitis Current Visit: Yes Status: Acute Code(s): K81.0 - ACUTE CHOLECYSTITIS SN OMED Code(s): 62816500 (3) Bacteremia due to Gram-positive bacteria Current Visit: Yes Status: Acute Code(s): R78.81 - BACTEREMIA SNOMED Code(s): 103951827470 (4) Transaminitis Current Visit: Yes Status: Acute Code(s): R74.01 - ELEVATION OF LEVELS OF LIVER TRANSAMINASE LEVELS SNOMED Code(s): 673340964 Plan: 1patient presented to hospital with acute nausea vomiting right upper quadrant abdominal pain and this patient who did have elevated liver enzymes ultrasound has been suspicious for cholecystitis General surgery, patient is status post laparoscopic cholecystectomy and laparoscopic liver biopsy completed on 12/09/2023, patient noted to have slight worsening of the white count questionably reactive postsurgery will watch her white count 1 more day for now continue with the Zosyn 2-positive blood culture with bacillus species likely skin contamination, blood culture has been repeated to document clearance which are negative so far Dictation was produced using [employer] dictation software. please excuse any grammatical, word or spelling errors. Time with Patient: Less than 30
--- NOTE | 2023-12-11 11:28 | P.PN ---
Subjective Progress Note Date: 12/11/23 Principal diagnosis: Reason for follow-up is positive blood culture and cholecystitis Patient is a 43-year-old female with a past medical history significant for metastatic breast cancer for which the patient has been treated with the surgery radiation chemotherapy, patient did have previously Mediport that has been subsequent discontinued patient presented to hospital for evaluation of nausea and vomiting, did have elevated liver enzymes and concern for possible cholecystitis patient also have a positive blood culture prompting this consultation On today's evaluation that is Patient is status post laparoscopic cholecystectomy and liver biopsy completed on 12/09/2023 On today's evaluation that is 12/11/2023, the patient continues to be afebrile, the patient is on room air and breathing comfortably, the Pt denies having any chest pain or cough, the patient denies any further nausea vomiting abdominal pain has improved no diarrhea feeling better wants to go home. Patient white count is up to 27.17, creatinine 0.9 Objective - Vital Signs Vital signs: Vital Signs Temp 97.9 F 12/11/23 07:47 Pulse 72 12/11/23 07:47 Resp 16 12/11/23 07:47 BP 126/68 12/11/23 07:47 Pulse Ox 92 L 12/11/23 07:47 FiO2 Intake & Output 12/10/23 12/11/23 12/11/23 18:59 06:59 18:59 Intake Total 1160 Balance 1160 Weight 117.48 kg Intake: Intake, IV Titration 1100 Amount Piperacillin-Tazobactam 3 200 .375 gm In Sodium Chloride 0.9% 100 ml @ 25 mls/hr IVPB Q8HR [facility] Rx# :[id number] Sodium Chloride 0.9% 1, 900 000 ml @ 75 mls/hr IV . [id number] [facility] Rx#:[id number] Oral 60 Other: Voiding Method Toilet # Voids 3 - Exam GENERAL DESCRIPTION: Middle-aged female lying in bed in no distress RESPIRATORY SYSTEM: Unlabored breathing , clear to auscultation anteriorly HEART: S1 S2 regular rate and rhythm , ABDOMEN: Soft , right upper quadrant tenderness EXTREMITIES: No edema feet - Labs CBC & Chem 7: 12/11/23 04:05 12/11/23 04:05 Labs: Abnormal Lab Results - Last 24 Hours (Table) 12/10/23 12/10/23 12/11/23 Range/Units 07:01 07:01 04:05 WBC 23.34 H (4.50-10.00) X 10*3/uL MCHC 31.7 L (32.0-37.0) g/dL RDW 15.8 H (11.5-14.5) % Plt Count 55 L (140-440) X 10*3/uL Immature Gran # 0.14 H (0.00-0.04) X 10*3/uL Neutrophils # 19.63 H (1.80-7.70) X 10*3/uL Monocytes # 2.05 H (0.20-1.00) X 10*3/uL Eosinophils # 0 L (0.04-0.35) X 10*3/uL Immature Plt Fraction 10.9 H (1.1-6.1) % Carbon Dioxide 20.7 L 20.2 L (21.6-31.8) mmol/L Glucose 151 H 120 H (70-110) mg/dL Calcium 7.4 L 7.4 L (8.7-10.3) mg/dL Total Bilirubin 2.9 H 2.3 H (0.3-1.2) mg/dL AST 229 H 195 H (13-35) U/L ALT 124 H 109 H (8-44) U/L Alkaline Phosphatase 227 H 226 H (41-126) U/L Total Protein 5.2 L 5.0 L (6.2-8.2) g/dL Albumin 2.6 L 2.6 L (3.8-4.9) g/dL Albumin/Globulin Ratio 1.00 L 1.08 L (1.60-3.17) Ratio Microbiology - Last 24 Hours (Table) 12/09/23 06:35 Blood Culture - Preliminary Blood Assessment and Plan (1) Leukocytosis Current Visit: Yes Status: Acute Code(s): D72.829 - ELEVATED WHITE BLOOD CELL COUNT, UNSPECIFIED SNOMED Code(s): 904481600 (2) Acute cholecystitis Current Visit: Yes Status: Acute Code(s): K81.0 - ACUTE CHOLECYSTITIS SNOMED Code(s): 53986975 (3) Bacteremia due to Gram-positive bacteria Current Visit: Yes Status: Acute Code(s): R78.81 - BACTEREMIA SNOMED Code(s): 499646964574 (4) Transaminitis Current Visit: Yes Status: Acute Code(s): R74.01 - ELEVATION OF LEVELS OF LIVER TRANSAMINASE LEVELS SNOMED Code(s): 561087090 Plan: 1patient presented to hospital with acute nausea vomiting right upper quadrant abdominal pain and this patient who did have elevated liver enzymes ultrasound has been suspicious for cholecystitis General surgery, patient is status post laparoscopic cholecystectomy and laparoscopic liver biopsy completed on 12/09/2023, patient leukocytosis may be related to the high-dose hydrocortisone the patient is receiving as evidence of any worsening infection on Zosyn consider short course of oral Ceftin and Flagyl on discharge 2-positive blood culture with bacillus species likely skin contamination, blood culture has been repeated to document clearance which are negative and there is no need for any further workup for the positive blood culture Dictation was produced using [employer] dictation software. please excuse any gramm atical, word or spelling errors.
== END 2023-12-11 15:18 | disposition home or self-care (01) | DRG 417 ==
LOC: EC 08:36 → 5NMEDONC 13:49 → OBSVTOIN 12-07 11:25
PROVIDERS: ADMIT Internal Medicine; ATTEND Internal Medicine
PROC: 30233R1 Transfusion of Nonautologous Platelets into Peripheral Vein, Percutaneous Approach (ICD-10-PCS; 2023-12-08)
PROC: 6A551Z2 Pheresis of Platelets, Multiple (ICD-10-PCS; 2023-12-08)
PROC: 0FT44ZZ Resection of Gallbladder, Percutaneous Endoscopic Approach (ICD-10-PCS; 2023-12-09)
PROC: 0FB04ZX Excision of Liver, Percutaneous Endoscopic Approach, Diagnostic (ICD-10-PCS; principal; 2023-12-09 09:50)
DX: C78.7 Secondary malignant neoplasm of liver and intrahepatic bile duct (principal); E43 Unspecified severe protein-calorie malnutrition; E27.3 Drug-induced adrenocortical insufficiency; D69.6 Thrombocytopenia, unspecified; R78.81 Bacteremia; E87.20 Acidosis, unspecified; K81.2 Acute cholecystitis with chronic cholecystitis; E66.9 Obesity, unspecified; E87.6 Hypokalemia; E86.0 Dehydration; T45.1X5A Adverse effect of antineoplastic and immunosuppressive drugs, initial encounter; B96.89 Other specified bacterial agents as the cause of diseases classified elsewhere; Z17.1 Estrogen receptor negative status [ER-]; Z68.35 Body mass index [BMI] 35.0-35.9, adult; Z85.3 Personal history of malignant neoplasm of breast; Z90.13 Acquired absence of bilateral breasts and nipples; Z92.3 Personal history of irradiation; Z88.2 Allergy status to sulfonamides; Z80.3 Family history of malignant neoplasm of breast; Z80.8 Family history of malignant neoplasm of other organs or systems
CPT/HCPCS: 36415; 71260; 74177; 74183; 76705; 78306; 80053; 80074; 81001; 81025; 83605; 83690; 83735; 85025; 85049; 85610; 86850; 86900; 86901; 87040; 88304; 88307; 88341; 88342; 96374; 96375; 96376; 99285

== ENCOUNTER 2023-12-13 14:03 | Inpatient (IN) | payer BC ==
--- NOTE | 2023-12-13 14:37 | ED ---
Recheck HPI - General Source: patient, RN notes reviewed, old records reviewed Mode of arrival: ambulatory Limitations: no limitations <Gregorio Mendez - Last Filed: 12/13/23 14:36> - General Source: patient, RN notes reviewed, old records reviewed <Jay Jones - Last Filed: 12/14/23 22:44> - General Chief Complaint: Nausea/Vomiting/Diarrhea Stated Complaint: Post-op pain Time Seen by Provider: 12/13/23 14:37 - History of Present Illness Initial Comments: 43 female to the ED co postoperative pain, weakness, pain abdominal pain with na usea and vomiting. Pain is severe with weakness. Feels like she may pass out. (Gregorio Mendez) Patient presents to the emergency department for postop pain with nausea and vomiting. Had a recent laparoscopic cholecystectomy by Dr. Vuong last . Was discharged on Wednesday. Has a history of adrenal insufficiency, thrombocytopenia, breast cancer no longer on chemo, who also received a liver biopsy for lesions on her liver during last admission. States she has been having worsening pain since discharge on Wednesday with nausea and vomiting today. Poor p.o. intake. Presents for further evaluation at this time. Originally seen as a quick note. Workup completed while patient was in triage including CT angiogram of the chest to eval for PE as well as CT of the abdomen pelvis. I evaluated her when she was placed in a room. This is when I was notified of the patient. (Jay Jones) - Related Data Home Medications Medication Instructions Recorded Confirmed Ergocalciferol [Vitamin D2 (1250 1,250 mcg PO QMONTHLY 10/15/22 12/13/23 Mcg = 37527 Iu)] Hydrocortisone [Cortef] 10 mg PO DAILY@1800 12/06/23 12/13/23 Hydrocortisone [Cortef] 20 mg PO DAILY@1300 12/06/23 12/13/23 Previous Rx's Medication Instructions Recorded cefUROXime axetiL [Ceftin] 500 mg PO BID 7 Days #14 tab 12/11/23 metroNIDAZOLE [Flagyl] 500 mg PO TID 7 Days #21 tab 12/11/23 Allergies Allergy/AdvReac Type Severity Reaction Status Date / Time sulfamethoxazole Allergy Rash/Hives Verified 12/13/23 18:08 [From Bactrim] trimethoprim [From Bactrim] Allergy Rash/Hives Verified 12/13/23 18:08 Review of Systems ROS Other: All systems not noted in ROS Statement are negative. <VanessaGregorio B - Last Filed: 12/13/23 14:36> ROS Other: All systems not noted in ROS Statement are negative. <Jay Jones - Last Filed: 12/14/23 22:44> ROS Statement: Those systems with pertinent positive or pertinent negative responses have been documented in the HPI. Review of Systems: CONST: Denies fever EYES: Denies blurry vision ENT: Denies nasal congestion C/V: Denies Chest pain RESP: Denies shortness of breath GI: Endorses abdominal pain : Denies dysuria SKIN: Denies rash. MSK: Denies joint pain. NEURO: Denies headache (Jay Jones) Past Medical History Past Medical History: Cancer Additional Past Medical History / Comment(s): new dx. breast cancer, Adrenal History of Any Multi-Drug Resistant Organisms: None Reported Past Surgical History: Breast Surgery, Tonsillectomy Additional Past Surgical History / Comment(s): recent breast bx. Past Anesthesia/Blood Transfusion Reactions: No Reported Reaction Past Psychological History: No Psychological Hx Reported Smoking Status: Never smoker Past Alcohol Use History: None Reported Past Drug Use History: None Reported - Past Family History Father Family Medical History: Cancer Additional Family Medical History / Comment(s): brain, paternal grandmother breast cancer <VanessaGregorio - Last Filed: 12/13/23 14:36> General Exam Limitations: no limitations General appearance: alert, in no apparent distress Head exam: Present: atraumatic, normocephalic, normal inspection Eye exam: Present: normal appearance, PERRL, EOMI. Absent: scleral icterus, conjunctival injection, periorbital swelling ENT exam: Present: normal exam, mucous membranes moist Neck exam: Present: normal inspection. Absent: tenderness, meningismus, lymphadenopathy Respiratory exam: Present: normal lung sounds bilaterally. Absent: respiratory distress, wheezes, rales, rhonchi, stridor Cardiovascular Exam: Present: regular rate, normal rhythm, normal heart sounds. Absent: systolic murmur, diastolic murmur, rubs, gallop, clicks GI/Abdominal exam: Present: soft, normal bowel sounds. Absent: distended, tenderness, guarding, rebound, rigid Extremities exam: Present: normal inspection, full ROM, normal capillary refill. Absent: tenderness, pedal edema, joint swelling, calf tenderness Back exam: Present: normal inspection Neurological exam: Present: alert, oriented X3, CN II-XII intact Psychiatric exam: Present: normal affect, normal mood Skin exam: Present: warm, dry, intact, normal color. Absent: rash <Gregorio Mendez - Last Filed: 12/13/23 14:36> <Jay Jones - Last Filed: 12/14/23 22:44> - General Exam Comments Initial Comments: General: Appears in mild to moderate distress. HEAD: Normal with no signs of head trauma. EYES: PERRLA, EOMI, conjunctiva normal, no discharge. ENT: Hearing grossly intact, normal oropharynx. RESPIRATORY: Clear breath sounds bilaterally. No wheezes, rales, or rhonchi. C/V: Regular rate and rhythm. S1 and S2 auscultated, peripheral pulses 2+ and intact throughout ABD: Abdomen is soft, nondistended. Tender to palpation along the right side. And recent cholecystectomy. No obvious guarding. No rebound tenderness. No peritoneal signs. EXT: Normal range of motion, no obvious deformity SKIN: No rashes or lesions observed on exposed skin. NEURO: Alert and oriented x 4. (Jay Jones) Course <Gregorio Mendez - Last Filed: 12/13/23 14:36> Vital Signs 12/13/23 12/13/23 12/13/23 14:33 19:57 21:19 Temperature 97.7 F 97.9 F Pulse Rate 98 65 63 Respiratory 18 18 18 Rate Blood Pressure 178/121 103/66 110/57 O2 Sat by Pulse 93 L 94 L 93 L Oximetry 12/13/23 12/13/23 12/13/23 22:12 22:33 22:53 Temperature 98.6 F 98 F 98 F Pulse Rate 64 68 67 Respiratory 16 16 18 Rate Blood Pressure 108/64 110/66 112/68 O2 Sat by Pulse 93 L 95 93 L Oximetry 12/13/23 23:22 Temperature 98 F Pulse Rate 65 Respiratory 18 Rate Blood Pressure 105/69 O2 Sat by Pulse 93 L Oximetry - Reevaluation(s) Reevaluation #1: 12/13/23 14:36 QN completed by myself Dr Mendez (Gregorio Mendez) Medical Decision Making - Lab Data Result diagrams: 12/14/23 05:46 12/14/23 05:46 - EKG Data -: EKG Interpreted by Me <Jay Jones - Last Filed: 12/14/23 22:44> - Medical Decision Making Was pt. sent in by a medical professional or institution (, PA, TESTING AND REGULATING CHIEF, urgent care, hospital, or skilled nursing...) When possible be specific @ -No Did you speak to anyone other than the patient for history (EMS, parent, family, police, friend...)? What history was obtained from this source @ -No Did you review nursing and triage notes (agree or disagree)? Why? @ -I reviewed and agree with nursing and triage notes Were old charts reviewed (outside hosp., previous admission, EMS record, old EKG, old radiological studies, urgent care reports/EKG's, skilled nursing records)? Report findings @ -Old charts reviewed Differential Diagnosis (chest pain, altered mental status, abdominal pain women, abdominal pain men, vaginal bleeding, weakness, fever, dyspnea, syncope, headache, dizziness, GI bleed, back pain, seizure, CVA, palpatations, mental health, musculoskeletal)? @ -Differential Abdominal Pain Women: Appendicitis, Cholecystitis, diverticulosis, ischemic bowel, pancreatitis, he patitis, UTI, gastroenteritis, AAA, incarcerated hernia, bowel obstruction, constipation, inflammatory bowel, hepatitis, peptic ulcer disease, splenic infarction, perforated viscus, vulvitis, ovarian torsion, PID, kidney stone, placenta abruption, this is not meant to be an all-inclusive list EKG interpreted by me (3pts min.). @ -As above X-rays interpreted by me (1pt min.). @ -None done CT interpreted by me (1pt min.). @ -CT abdomen pelvis revealed findings consistent with recent surgery. No obvious active bleeding. Reviewed with Dr. Amaya of surgery as well. CT PE negative for pulmonary embolism. U/S interpreted by me (1pt. min.). @ -None done What testing was considered but not performed or refused? (CT, X-rays, U/S, labs)? Why? @ -None What meds were considered but not given or refused? Why? @ -Consider platelet transfusion but I spoke with oncology Dr. Lam who instructed me to hold unless platelets drop below 15. Did you discuss the management of the patient with other professionals (professionals i.e. , PA, TESTING AND REGULATING CHIEF, lab, RT, psych nurse, web content & social media manager, retail performance specialist, teacher, agricultural loan officer, high risk case manager)? Give summary @ -Discussed with Dr. Vuong who reviewed imaging. Requested medicine admission as does not appear to have a surgical issue at this time after he reviewed the CT imaging himself. Was in agreement with plan for empiric antibiotics as well as IV fluids. I spoke with oncology Dr. Lam we discussed the control for DIC however patient's coags are chronically elevated, and patient is chronically thrombocytopenic, and she believes it is possible she is chronically on list at home as it is only slightly worse at this time. Was in agreement with plan for fibrinogen test and if fibrinogen is decreased to provide cryoprecipitate. Also was in agreement with holding platelets at this time and if lipids decreased to below 15, patient requires transfusion of this at that time. Otherwise was in agreement with the plan for admission. I spoke with the admitting team, RENEE Castillo who accepted the admission. Was smoking cessation discussed for >3mins.? @ -No Was critical care preformed (if so, how long)? @ -Yes, 35 minutes. Were there social determinants of health that impacted care today? How? (Homelessness, low income, unemployed, alcoholism, drug addiction, transportation, low edu. Level, literacy, decrease access to med. care, alf, rehab)? @ -No Was there de-escalation of care discussed even if they declined (Discuss DNR or withdrawal of care, Hospice)? DNR status @ -No What co-morbidities impacted this encounter? (DM, HTN, Smoking, COPD, CAD, Cancer, CVA, ARF, Chemo, Hep., AIDS, mental health diagnosis, sleep apnea, morbid obesity)? @ -History of cancer, adrenal insufficiency, recent laparoscopic cholecystectomy Was patient admitted / discharged? Hospital course, mention meds given and route, prescriptions, significant lab abnormalities, going to OR and other pertinent info. @ -Based on patient's presentation and physical exam, concern for abdominal pain with nausea and vomiting. Workup started and essentially completed in triage. I evaluated her when she was placed in a room. Had a recent surgery. Labs remarkable for leukocytosis of 20, however patient's leukocytosis was elevated throughout her most recent stay. Patient has chronic thrombocytopenia and this is within the normal range over the last year for her. Patient has an elevated D-dimer greater than 34 in the setting of cancer and recent surgery. CTPE negative for pulmonary embolism. Patient has elevated coags however patient chronically has elevated coags but these are slightly worse than her baseline. Lactic acid is within normal limits. LFTs slightly elevated in the setting of post lap cholecystectomy. Laboratory studies are within acceptable limits. CT on pelvis shows no obvious acute process other than recent postsurgical findings.No obvious source of acute bleeding from the surgery at this time. I discussed the CTs with Dr. Rust and he reviewed them And agreed with the read with no obvious acute surgical process at this time. and requested patient be admitted to medicine with empiric antibiotics and fluids. Empiric antibiotics and IV fluids started. Patient was placed on IV hydrocortisone as well for her adrenal insufficiency. I spoke with on-call oncology, Dr. Lam who agreed that it does not appear to be acute DIC as she is chronically having all of these laboratory studies but does recommend monitoring the platelets as well as the fibrinogen. Recommended starting the patient on cryoprecipitate if fibrinogen is low. If platelets drop below 15 and initiating platelet fusion. Fibrinogen did return low and therefore patient was given cryoprecipitate per oncology instructions. I spoke with the admitting team, RENEE Castillo of [facility] who accepted the admission. Undiagnosed new problem with uncertain prognosis? @ -No Drug Therapy requiring intensive monitoring for toxicity (Heparin, Nitro, Ins ulin, Cardizem)? @ -No Were any procedures done? @ -No Diagnosis/symptom? @ -Postop pain, nausea, and vomiting, concern for DIC Acute, or Chronic, or Acute on Chronic? @ -Acute Uncomplicated (without systemic symptoms) or Complicated (systemic symptoms)? @ -Complicated Side effects of treatment? @ -No Exacerbation, Progression, or Severe Exacerbation? @ -No Poses a threat to life or bodily function? How? (Chest pain, [place], [place], pneumonia, PE, COPD, DKA, ARF, appy, cholecystitis, CVA, Diverticulitis, Homicidal, Suicidal, threat to staff... and all critical care pts) @ -Yes Diagnosis/symptom? @ -Adrenal insufficiency, thrombocytopenia Acute, or Chronic, or Acute on Chronic? @ -Acute on chronic Uncomplicated (without systemic symptoms) or Complicated (systemic symptoms)? @ -Complicated Side effects of treatment? @ -None Exacerbation, Progression, or Severe Exacerbation] @ -No Poses a threat to life or bodily function? @ -Yes (Jay Jones) - Lab Data Lab Results 12/13/23 12/13/23 12/13/23 Range/Units 17:00 17:00 17:00 WBC 20.8 H (3.8-10.6) k/uL RBC 4.98 (3.80-5.40) m/uL Hgb 14.4 (11.4-16.0) gm/dL Hct 45.8 (34.0-46.0) % MCV 92.0 (80.0-100.0) fL MCH 28.9 (25.0-35.0) pg MCHC 31.4 (31.0-37.0) g/dL RDW 17.3 H (11.5-15.5) % Plt Count 17 L* D (150-450) k/uL MPV 8.4 Neutrophils % 80 % Lymphocytes % 10 % Monocytes % 7 % Eosinophils % 1 % Basophils % 1 % Neutrophils # 16.6 H (1.3-7.7) k/uL Lymphocytes # 2.1 (1.0-4.8) k/uL Monocytes # 1.4 H (0-1.0) k/uL Eosinophils # 0.1 (0-0.7) k/uL Basophils # 0.1 (0-0.2) k/uL Manual Slide Review Performed Polychromasia Present Anisocytosis Slight PT (10.0-12.5) sec INR (<1.2) APTT (22.0-30.0) sec Fibrinogen (200-500) mg/dL D-Dimer >34.10 H (<0.60) mg/L FEU Sodium 135 L (137-145) mmol/L Potassium 3.7 (3.5-5.1) mmol/L Chloride 109 H (98-107) mmol/L Carbon Dioxide 20 L (22-30) mmol/L Anion Gap 6 mmol/L BUN 26 H (7-17) mg/dL Creatinine 1.01 (0.52-1.04) mg/dL Est GFR (CKD-EPI)AfAm 79 (>60 ml/min/1.73 sqM) Est GFR (CKD-EPI)NonAf 69 (>60 ml/min/1.73 sqM) Glucose 115 H (74-99) mg/dL Plasma Lactic Acid Varun (0.7-2.0) mmol/L Calcium 7.3 L (8.4-10.2) mg/dL Phosphorus 2.9 (2.5-4.5) mg/dL Magnesium 2.2 (1.6-2.3) mg/dL Total Bilirubin 5.9 H (0.2-1.3) mg/dL AST 229 H (14-36) U/L ALT 78 H (4-34) U/L Alkaline Phosphatase 365 H (38-126) U/L Total Protein 5.3 L (6.3-8.2) g/dL Albumin 2.2 L (3.5-5.0) g/dL Lipase 34 (23-300) U/L Influenza Type A (PCR) (Not Detectd) Influenza Type B (PCR) (Not Detectd) RSV (PCR) (Not Detectd) SARS-CoV-2 (PCR) (Not Detectd) 12/13/23 12/13/23 12/13/23 Range/Units 17:00 19:21 19:21 WBC (3.8-10.6) k/uL RBC (3.80-5.40) m/uL Hgb (11.4-16.0) gm/dL Hct (34.0-46.0) % MCV (80.0-100.0) fL MCH (25.0-35.0) pg MCHC (31.0-37.0) g/dL RDW (11.5-15.5) % Plt Count (150-450) k/uL MPV Neutrophils % % Lymphocytes % % Monocytes % % Eosinophils % % Basophils % % Neutrophils # (1.3-7.7) k/uL Lymphocytes # (1.0-4.8) k/uL Monocytes # (0-1.0) k/uL Eosinophils # (0-0.7) k/uL Basophils # (0-0.2) k/uL Manual Slide Review Polychromasia Anisocytosis PT 20.5 H (10.0-12.5) sec INR 2.0 H (<1.2) APTT 40.6 H (22.0-30.0) sec Fibrinogen 76 L* (200-500) mg/dL D-Dimer (<0.60) mg/L FEU Sodium (137-145) mmol/L Potassium (3.5-5.1) mmol/L Chloride (98-107) mmol/L Carbon Dioxide (22-30) mmol/L Anion Gap mmol/L BUN (7-17) mg/dL Creatinine (0.52-1.04) mg/dL Est GFR (CKD-EPI)AfAm (>60 ml/min/1.73 sqM) Est GFR (CKD-EPI)NonAf (>60 ml/min/1.73 sqM) Glucose (74-99) mg/dL Plasma Lactic Acid Varun 2.0 (0.7-2.0) mmol/L Calcium (8.4-10.2) mg/dL Phosphorus (2.5-4.5) mg/dL Magnesium (1.6-2.3) mg/dL Total Bilirubin (0.2-1.3) mg/dL AST (14-36) U/L ALT (4-34) U/L Alkaline Phosphatase (38-126) U/L Total Protein (6.3-8.2) g/dL Albumin (3.5-5.0) g/dL Lipase (23-300) U/L Influenza Type A (PCR) (Not Detectd) Influenza Type B (PCR) (Not Detectd) RSV (PCR) (Not Detectd) SARS-CoV-2 (PCR) (Not Detectd) 12/13/23 Range/Units 19:57 WBC (3.8-10.6) k/uL RBC (3.80-5.40) m/uL Hgb (11.4-16.0) gm/dL Hct (34.0-46.0) % MCV (80.0-100.0) fL MCH (25.0-35.0) pg MCHC (31.0-37.0) g/dL RDW (11.5-15.5) % Plt Count (150-450) k/uL MPV Neutrophils % % Lymphocytes % % Monocytes % % Eosinophils % % Basophils % % Neutrophils # (1.3-7.7) k/uL Lymphocytes # (1.0-4.8) k/uL Monocytes # (0-1.0) k/uL Eosinophils # (0-0.7) k/uL Basophils # (0-0.2) k/uL Manual Slide Review Polychromasia Anisocytosis PT (10.0-12.5) sec INR (<1.2) APTT (22.0-30.0) sec Fibrinogen (200-500) mg/dL D-Dimer (<0.60) mg/L FEU Sodium (137-145) mmol/L Potassium (3.5-5.1) mmol/L Chloride (98-107) mmol/L Carbon Dioxide (22-30) mmol/L Anion Gap mmol/L BUN (7-17) mg/dL Creatinine (0.52-1.04) mg/dL Est GFR (CKD-EPI)AfAm (>60 ml/min/1.73 sqM) Est GFR (CKD-EPI)NonAf (>60 ml/min/1.73 sqM) Glucose (74-99) mg/dL Plasma Lactic Acid Varun (0.7-2.0) mmol/L Calcium (8.4-10.2) mg/dL Phosphorus (2.5-4.5) mg/dL Magnesium (1.6-2.3) mg/dL Total Bilirubin (0.2-1.3) mg/dL AST (14-36) U/L ALT (4-34) U/L Alkaline Phosphatase (38-126) U/L Total Protein (6.3-8.2) g/dL Albumin (3.5-5.0) g/dL Lipase (23-300) U/L Influenza Type A (PCR) Not Detected (Not Detectd) Influenza Type B (PCR) Not Detected (Not Detectd) RSV (PCR) Not Detected (Not Detectd) SARS-CoV-2 (PCR) Not Detected (Not Detectd) - EKG Data EKG Comments: 12-lead Electrocardiogram Interpretation Note EKG was reviewed and interpreted by myself. 12-lead ECG performed at 2040 is interpreted by me as revealing normal sinus rhythm at a rate of 62 beats per minute. [place] is normal. MD interval is 142 ms, QRS duration is 97 ms, QTc is 459 ms.. There were no ST or T wave abnormalities to suggest myocardial ischemia or injury. R wave progression across the precordium was satisfactory. By my interpretation this EKG is non-diagnostic for acute ischemia. (Jay Jones) Critical Care Time Critical Care Time: Yes Total Critical Care Time: 35 <Jay Jones - Last Filed: 12/14/23 22:44> Disposition <Gregorio Mendez - Last Filed: 12/13/23 14:36> Time of Disposition: 19:59 <Jay Jones - Last Filed: 12/14/23 22:44> Clinical Impression: Post-op pain, Dehydration, Nausea and vomiting, Adrenal insufficiency, Thrombocytopenia, DIC (disseminated intravascular coagulation) Disposition: ADMITTED IP TO THIS [facility] Condition: Serious
[2023-12-13 17:13] LABS: Anisocytosis Slight; Basophils # (A) 0.1 k/uL (0-0.2); Basophils % (A) 1 %; Eosinophils # (A) 0.1 k/uL (0-0.7); Eosinophils % (A) 1 %; HCT 45.8 % (34.0-46.0); HGB 14.4 gm/dL (11.4-16.0); Lymphocytes # (A) 2.1 k/uL (1.0-4.8); Lymphocytes % (A) 10 %; MCH 28.9 pg (25.0-35.0); MCHC 31.4 g/dL (31.0-37.0); Mean Platelet Volume 8.4; Monocytes # (A) 1.4 k/uL (0-1.0); Monocytes % (A) 7 %; Neutrophils # (A) 16.6 k/uL (1.3-7.7); Neutrophils % (A) 80 %; RBC 4.98 m/uL (3.80-5.40); RDW 17.3 % (11.5-15.5); WBC 20.8 k/uL (3.8-10.6)
[2023-12-13 17:24] LABS: ALT 78 U/L (4-34); AST 229 U/L (14-36); African American GFR (CKD) 79 (>60 ml/min/1.73 sqM); Albumin 2.2 g/dL (3.5-5.0); Alkaline Phosphatase 365 U/L (38-126); Anion Gap 6 mmol/L; Blood Urea Nitrogen 26 mg/dL (7-17); Calcium 7.3 mg/dL (8.4-10.2); Carbon Dioxide 20 mmol/L (22-30); Chloride 109 mmol/L (98-107); Glucose 115 mg/dL (74-99); Lipase 34 U/L (23-300); Magnesium 2.2 mg/dL (1.6-2.3); Non-African American GFR(CKD) 69 (>60 ml/min/1.73 sqM); Phosphorus 2.9 mg/dL (2.5-4.5); Potassium 3.7 mmol/L (3.5-5.1); Sodium 135 mmol/L (137-145); Total Bilirubin 5.9 mg/dL (0.2-1.3); Total Protein 5.3 g/dL (6.3-8.2)
[2023-12-13] MEDS: SODIUM CHLORIDE 0.9% 1,000 ML IV STA ×3 (17:54→21:24)
--- NOTE | 2023-12-13 17:54 | CT ---
EXAMINATION TYPE: CT abdomen pelvis w con CT DLP: 2776.1 mGycm, Automated exposure control for dose reduction was used. DATE OF EXAM: 12/13/2023 5:38 PM COMPARISON: MRI 12/06/2023, CT 12/06/2023 CLINICAL INDICATION:Female, 43 years old with history of pain; Chest pain, Tavia 12/09/23 abdominal p ain with nausea, vomiting, and fatigue. Hx. of adrenal cancer, TECHNIQUE: Axial CT abdomen pelvis w con;Sagittal and coronal reformats were created on a separate w orkstation. Contrast used:100 mL of Isovue 370 with IV Contrast, (none if empty) Oral contrast used: without Oral Contrast (none if empty) FINDINGS: LOWER CHEST: Breast implants bilaterally appear intact. ABDOMEN LIVER: There remains geographic area in the left hepatic lobe which is poorly visualized on single ph ase CT imaging. Area measures roughly 3.9 x 3.0 cm which is similar to prior CT. GALLBLADDER AND BILE DUCTS: Gallbladder has been surgically removed from 12/06/2023. PANCREAS: Unremarkable. SPLEEN: Unremarkable. ADRENAL GLANDS: Unremarkable. KIDNEYS AND URETERS: No evidence of hydronephrosis or renal calculus. The ureters are unremarkable. PELVIS BLADDER: Unremarkable REPRODUCTIVE: Unremarkable. ABDOMEN & PELVIS STOMACH AND BOWEL: No evidence of bowel obstruction. PERITONEUM/RETROPERITONEUM: There is some free fluid in the pelvis measuring up to 40 Hounsfield unit s near the anterior aspect of the uterus. Simple appearing fluid seen in the posterior cul-de-sac as seen on prior also remains. VASCULATURE: No evidence of aortic aneurysm. MUSCULOSKELETAL: No acute osseous abnormalities LYMPH NODES: No gross evidence for lymphadenopathy. SOFT TISSUE/ABDOMINAL WALL: Unremarkable IMPRESSION: 1. Post cholecystectomy changes with high density fluid in the pelvis around the uterus posteriorly representing blood products. No evidence for pneumoperitoneum or organizing peripheral enhancing flui d collection to suggest abscess. 2. Persistent liver lesions as seen on MRI 12/06/2023 concerning for metastatic disease until proven otherwise given patient's history of breast cancer. 3. Trace bilateral pleural effusions.
[2023-12-13 18:02] LABS: Polychromasia Present
[2023-12-13 18:04] LABS: Platelet Count 17 k/uL (150-450)
--- NOTE | 2023-12-13 18:10 | CT ---
EXAMINATION TYPE: CT angio chest CT DLP: 2776.1 mGycm, Automated exposure control for dose reduction was used. DATE OF EXAM: 12/13/2023 5:42 PM COMPARISON: 12/07/2023 CLINICAL INDICATION:Female, 43 years old with history of pain; Chest pain, Tavia 12/09/23 abdominal p ain with nausea, vomiting, and fatigue. TECHNIQUE/CONTRAST: CTA scan of the thorax is performed with IV Contrast, patient injected with 100 mL of Isovue 370, MIP images are created and reviewed these are created on a separate workstation.. FINDINGS: Pulmonary Artery: There is no evidence for a filling defect within the pulmonary vasculature to sugge st acute pulmonary embolism. The pulmonary artery is of normal size. Lungs/Pleura: Trace bilateral pleural effusions. No evidence for focal consolidation. No greater than 4 mm pulmonary nodule definitively visualized. Airway: Large airways are patent. Heart: Heart is within normal limits for size. Vasculature: No evidence of aortic aneurysm. Mediastinum: No gross evidence of adenopathy. Musculoskeletal: No acute osseous abnormalities Soft Tissues: Bilateral breast implants appear intact. Lower neck: No significant findings. Upper Abdomen: No significant findings. IMPRESSION: 1. No evidence of pulmonary embolism. 2. Trace bilateral pleural effusions which are new from prior imaging. 3. No evidence for lymphadenopathy or suspicious pulmonary nodule.
[2023-12-13] MEDS: ONDANSETRON 4 MG/2 ML VIAL IVP STA (18:31)
[2023-12-13 18:41] LABS: Partial Thromboplastin Time 40.6 sec (22.0-30.0); Prothrombin Time 20.5 sec (10.0-12.5)
[2023-12-13] MEDS ORDERED: VANCOMYCIN IV PER PHARMACY 1 EACH MISC MISCELLANE PRN (18:53)
[2023-12-13] MEDS: HYDROCORTISONE SUCCINATE 100 MG/2 ML VIAL IV SCH (21:05)
[2023-12-13] MEDS: HYDROCORTISONE 10 MG TAB PO STA (21:06)
[2023-12-13] MEDS: ACETAMINOPHEN IV (For NPO) 1,000 MG in EMPTY BAG 1 BAG IVPB STA (21:22)
[2023-12-13] MEDS: PIPERACILLIN-TAZOBACTAM 3.375 GM in SODIUM CHLORIDE 0.9% 100 ML IVPB SCH (21:27)
[2023-12-13] MEDS: VANCOMYCIN 1,750 MG in SODIUM CHLORIDE 0.9% 500 ML 500 ML IVPB ONE (21:27)
[2023-12-14 01:16] LABS: Anisocytosis Slight; HCT 41.5 % (34.0-46.0); HGB 13.4 gm/dL (11.4-16.0); Hypochromasia Slight; MCH 29.8 pg (25.0-35.0); MCHC 32.2 g/dL (31.0-37.0); MCV 92.5 fL (80.0-100.0); Macrocytosis Slight; Mean Platelet Volume 9.4; RBC 4.49 m/uL (3.80-5.40); RDW 18.2 % (11.5-15.5)
[2023-12-14 01:30] LABS: Appearance,Urine Clear (Clear); Bilirubin,Urine Negative (Negative); Blood,Urine Moderate (Negative); Budding Yeast,Urine Rare /hpf; Color,Urine Yellow; Glucose,Urine (UA) Negative (Negative); Hyaline Casts,Urine 3 /lpf (0-2); Ketones,Urine Negative (Negative); Leukocyte Esterase,Urine Negative (Negative); Mucus,Urine Rare /hpf; Nitrite,Urine Negative (Negative); PH, Urine 6.5 (5.0-8.0); Protein,Urine Trace (Negative); RBC,Urine 115 /hpf (0-5); Squamous Epithelial Cell,Urine 2 /hpf (0-4); Urobilinogen,Urine <2.0 mg/dL (<2.0); WBC,Urine 2 /hpf (0-5)
[2023-12-14 01:35] LABS: Platelet Count 20 k/uL (150-450)
[2023-12-14 01:35] LABS: Specific Gravity,Urine >1.050 (1.001-1.035)
[2023-12-14] MEDS: ACETAMINOPHEN TAB 325 MG TAB PO PRN (01:36)
[2023-12-14] MEDS: PIPERACILLIN-TAZOBACTAM 3.375 GM in SODIUM CHLORIDE 0.9% 100 ML IVPB SCH (01:36)
[2023-12-14 04:35] LABS: Band Neutrophils % 5 %; Neutrophils % (M) 89 %; Nucleated Red Blood Cells 2 /100 WBC (0-0); Total Cells Counted 200
[2023-12-14 04:36] LABS: Lymphocytes # (M) 1.16 k/uL (1.0-4.8); Monocytes # (M) 0.46 k/uL (0-1.0); Polychromasia Present; WBC 23.1 k/uL (3.8-10.6)
[2023-12-14 04:37] LABS: Poikilocytosis (M) Present
[2023-12-14 08:52] LABS: Basophils # (A) 0.06 X 10*3/uL (0.00-0.10); Basophils % (A) 0.2 %; Eosinophils # (A) 0 X 10*3/uL (0.04-0.35); Eosinophils % (A) 0 %; HCT 38.5 % (37.2-46.3); HGB 12.7 g/dL (12.0-15.0); Immature Platelet Fraction 30.1 % (1.1-6.1); Lymphocytes # (A) 2.02 X 10*3/uL (0.90-5.00); Lymphocytes % (A) 7.6 %; MCH 29.2 pg (27.0-32.0); MCV 88.5 FL (80.0-97.0); Monocytes # (A) 2.73 X 10*3/uL (0.20-1.00); Monocytes % (A) 10.2 %; NRBC Per 100 WBC 0.15 X 10*3/uL (0.00-0.01); Neutrophils % (A) 80.9 %; Platelet Count 22 X 10*3/uL (140-440); RBC 4.35 X 10*6/uL (4.10-5.20); RDW 18.6 % (11.5-14.5); WBC 26.71 X 10*3/uL (4.50-10.00)
[2023-12-14 09:10] LABS: ALT 65 U/L (8-44); AST 167 U/L (13-35); Albumin 2.2 g/dL (3.8-4.9); Alkaline Phosphatase 280 U/L (41-126); Blood Urea Nitrogen 20.7 mg/dL (9.0-27.0); Calcium 6.9 mg/dL (8.7-10.3); Carbon Dioxide 20.3 mmol/L (21.6-31.8); Chloride 108 mmol/L (96-109); Globulin 2.2 g/dL (1.6-3.3); Glucose 100 mg/dL (70-110); Potassium 4.2 mmol/L (3.5-5.5); Sodium 137 mmol/L (135-145); Total Bilirubin 4.1 mg/dL (0.3-1.2); Total Protein 4.4 g/dL (6.2-8.2)
[2023-12-14] MEDS: ONDANSETRON 4 MG/2 ML VIAL IVP PRN (09:19)
[2023-12-14] MEDS: VANCOMYCIN 1,750 MG in SODIUM CHLORIDE 0.9% 500 ML 500 ML IVPB SCH (09:22)
[2023-12-14 10:19] LABS: INR 2.4 (<1.2); Partial Thromboplastin Time 42.1 sec (22.0-30.0); Prothrombin Time 23.4 sec (10.0-12.5)
[2023-12-14] MEDS: PHYTONADIONE 5 MG in SODIUM CHLORIDE 0.9% 50 ML IVPB STA (12:11)
[2023-12-14] MEDS ORDERED: HYDROCORTISONE 10 MG TAB PO SCH ×2 (13:00→18:00)
--- NOTE | 2023-12-14 14:01 | P.GSCN ---
History of Present Illness Consult date: 12/14/23 History of present illness: CHIEF COMPLAINT: Abdominal pain with nausea and vomiting HISTORY OF PRESENT ILLNESS: This is a 43-year-old female with a known history of breast cancer status post bilateral mastectomy at [facility] and had completed chemotherapy last March 2023 and radiation treatment completed in August 2023. Patient had laparoscopic cholecystectomy on December 09, 2023 with liver wedge resection for evaluation of liver lesions with Dr. Vuong. Patient reports that since being discharged she continues to have nausea vomiting and right-sided abdominal pain and lower abdominal pain. She reports having flatus and small bowel movement. She reports that her urine is dark. She is afebrile. CT scan abdomen and pelvis fluid in the pelvis around the uterus posteriorly representing blood products. No evidence of pneumoperitoneum or organizing peripheral enhancing fluid collection to suggest abscess. Persistent liver lesions concerning for metastatic disease. Patient is reporting that her urine has blood in it. Patient seen and examined with Dr. Vuong PAST MEDICAL HISTORY: Breast cancer, adrenal insufficiency PAST SURGICAL HISTORY: See below MEDICATIONS: See below ALLERGIES: See below SOCIAL HISTORY: No illicit drug use. REVIEW OF SYSTEMS: CONSTITUTIONAL: Denies fever or chills. HEENT: Denies blurred vision, vision changes, or eye pain. Denies hemoptysis CARDIOVASCULAR: Denies chest pain or pressure. RESPIRATORY: No shortness of breath. GASTROINTESTINAL: See HPI for pertinent findings HEMATOLOGIC: Denies bleeding disorders. GENITOURINARY: Denies any blood in urine or increased urinary frequency. SKIN: Denies pruitis. Denies rash. PHYSICAL EXAM: VITAL SIGNS: Reviewed GENERAL: Well-developed in no acute distress. HEENT: No sclera icterus. Extraocular movements grossly intact. Moist buccal mucosa. Head is atraumatic, normocephalic. No nasal drainage. ABDOMEN: Soft. Nondistended. Incision sites clean dry and intact. Mild bruising below incision on the right side of abdomen. Tenderness with palpation right side of abdomen and across the lower abdomen. NEUROLOGIC: Alert and oriented. Cranial nerves II through XII grossly intact. LABORATORY DATA: WBC 26 Hgb 12.7 platelets 22 INR 2.4 Sodium is 137 potassium is 4.2 creatinine 0.9 Total bilirubin 5.9-4.1 AST 167 ALT 65 alk phos 280 lipase 34 Urinalysis with moderate blood IMAGING: CT scan abdomen pelvis reports postcholecystectomy changes with high density fluid in the pelvis around the uterus posteriorly representing blood products. No evidence for pneumoperitoneum or organizing peripheral enhancing fluid collection to suggest abscess. Persistent liver lesions as seen on MRI concerning for metastatic disease until proven otherwise given patient's history of breast cancer. Trace bilateral pleural effusions. Chest CTA no evidence of pulmonary embolism. Trace bilateral pleural effusions which are new from prior imaging. No evidence for lymphadenopathy or suspicious pulmonary nodule ASSESSMENT: 1. Intractable nausea and vomiting and abdominal pain 2. Recent laparoscopic cholecystectomy on December 09, 2023 with liver lesion biopsy. Pathology results pending 3. Liver lesions with concerns of metastatic disease 4. History of breast cancer status post bilateral mastectomy, chemo and radiation 5. Leukocytosis 6. Elevated liver enzymes and total bilirubin with known liver lesions PLAN: -No surgical intervention planned -Agree with oncology consult -Continue supportive care -Continue IV fluids -Continue pain management. Storden added -Continue antibiotics [employer] note has been reviewed by physician. Signing provider agrees with the documented findings, assessment, and plan of care. Past Medical History Past Medical History: Cancer Additional Past Medical History / Comment(s): new dx. breast cancer, chemo induced Adrenal insufficiency History of Any Multi-Drug Resistant Organisms: None Reported Past Surgical History: Breast Surgery, Tonsillectomy Additional Past Surgical History / Comment(s): bilateral mastectomy May 13 2023 Past Anesthesia/Blood Transfusion Reactions: No Reported Reaction Past Psychological History: No Psychological Hx Reported Smoking Status: Never smoker Past Alcohol Use History: None Reported Past Drug Use History: None Reported - Past Family History Father Family Medical History: Cancer Additional Family Medical History / Comment(s): brain, paternal grandmother breast cancer Medications and Allergies Home Medications Medication Instructions Recorded Confirmed Type Ergocalciferol [Vitamin D2 (1250 1,250 mcg PO QMONTHLY 10/15/22 12/13/23 History Mcg = 29682 Iu)] Hydrocortisone [Cortef] 10 mg PO DAILY@1800 12/06/23 12/13/23 History Hydrocortisone [Cortef] 20 mg PO DAILY@1300 12/06/23 12/13/23 History cefUROXime axetiL [Ceftin] 500 mg PO BID 7 Days #14 tab 12/11/23 12/13/23 Rx metroNIDAZOLE [Flagyl] 500 mg PO TID 7 Days #21 tab 12/11/23 12/13/23 Rx Allergies Allergy/AdvReac Type Severity Reaction Status Date / Time sulfamethoxazole Allergy Rash/Hives Verified 12/13/23 18:08 [From Bactrim] trimethoprim [From Bactrim] Allergy Rash/Hives Verified 12/13/23 18:08 Surgical - Exam Vital Signs Temp Pulse Resp BP Pulse Ox 97.7 F 98 18 178/121 93 L 12/13/23 14:33 12/13/23 14:33 12/13/23 14:33 12/13/23 14:33 12/13/23 14:33 Results - Labs 12/14/23 05:46 12/14/23 05:46 Abnormal Lab Results - Last 24 Hours (Table) 12/13/23 12/13/23 12/13/23 Range/Units 17:00 17:00 17:00 WBC 20.8 H (3.8-10.6) k/uL RDW 17.3 H (11.5-15.5) % Plt Count 17 L* D (150-450) k/uL Immature Gran # (0.00-0.04) X 10*3/uL Neutrophils # 16.6 H (1.3-7.7) k/uL Neutrophils # (Manual) (1.3-7.7) k/uL Monocytes # 1.4 H (0-1.0) k/uL Eosinophils # (0.04-0.35) X 10*3/uL Nucleated RBCs (0-0) /100 WBC NRBC/100 WBC Diff (0.00-0.01) X 10*3/uL Immature Plt Fraction (1.1-6.1) % PT (10.0-12.5) sec INR (<1.2) APTT (22.0-30.0) sec Fibrinogen (200-500) mg/dL D-Dimer >34.10 H (<0.60) mg/L FEU Sodium 135 L (137-145) mmol/L Chloride 109 H (98-107) mmol/L Carbon Dioxide 20 L (22-30) mmol/L BUN 26 H (7-17) mg/dL BUN/Creatinine Ratio (12.00-20.00) Ratio Glucose 115 H (74-99) mg/dL Calcium 7.3 L (8.4-10.2) mg/dL Total Bilirubin 5.9 H (0.2-1.3) mg/dL AST 229 H (14-36) U/L ALT 78 H (4-34) U/L Alkaline Phosphatase 365 H (38-126) U/L Total Protein 5.3 L (6.3-8.2) g/dL Albumin 2.2 L (3.5-5.0) g/dL Albumin/Globulin Ratio (1.60-3.17) Ratio Ur Specific [place] (1.001-1.035) Urine Protein (Negative) Urine Blood (Negative) Urine RBC (0-5) /hpf Hyaline Casts (0-2) /lpf Urine Mucus (None) /hpf Urine Yeast (Budding) (None) /hpf 12/13/23 12/13/23 12/14/23 Range/Units 17:00 19:21 00:15 WBC (3.8-10.6) k/uL RDW (11.5-15.5) % Plt Count (150-450) k/uL Immature Gran # (0.00-0.04) X 10*3/uL Neutrophils # (1.3-7.7) k/uL Neutrophils # (Manual) (1.3-7.7) k/uL Monocytes # (0-1.0) k/uL Eosinophils # (0.04-0.35) X 10*3/uL Nucleated RBCs (0-0) /100 WBC NRBC/100 WBC Diff (0.00-0.01) X 10*3/uL Immature Plt Fraction (1.1-6.1) % PT 20.5 H (10.0-12.5) sec INR 2.0 H (<1.2) APTT 40.6 H (22.0-30.0) sec Fibrinogen 76 L* (200-500) mg/dL D-Dimer (<0.60) mg/L FEU Sodium (137-145) mmol/L Chloride (98-107) mmol/L Carbon Dioxide (22-30) mmol/L BUN (7-17) mg/dL BUN/Creatinine Ratio (12.00-20.00) Ratio Glucose (74-99) mg/dL Calcium (8.4-10.2) mg/dL Total Bilirubin (0.2-1.3) mg/dL AST (14-36) U/L ALT (4-34) U/L Alkaline Phosphatase (38-126) U/L Total Protein (6.3-8.2) g/dL Albumin (3.5-5.0) g/dL Albumin/Globulin Ratio (1.60-3.17) Ratio Ur Specific [place] >1.050 H (1.001-1.035) Urine Protein Trace H (Negative) Urine Blood Moderate H (Negative) Urine RBC 115 H (0-5) /hpf Hyaline Casts 3 H (0-2) /lpf Urine Mucus Rare H (None) /hpf Urine Yeast (Budding) Rare H (None) /hpf 12/14/23 12/14/23 12/14/23 Range/Units 00:19 05:46 05:46 WBC 23.1 H 26.71 H (3.8-10.6) k/uL RDW 18.2 H 18.6 H (11.5-15.5) % Plt Count 20 L 22 L (150-450) k/uL Immature Gran # 0.30 H (0.00-0.04) X 10*3/uL Neutrophils # 21.60 H (1.3-7.7) k/uL Neutrophils # (Manual) 21.70 H (1.3-7.7) k/uL Monocytes # 2.73 H (0-1.0) k/uL Eosinophils # 0 L (0.04-0.35) X 10*3/uL Nucleated RBCs 2 H (0-0) /100 WBC NRBC/100 WBC Diff 0.15 H (0.00-0.01) X 10*3/uL Immature Plt Fraction 30.1 H (1.1-6.1) % PT (10.0-12.5) sec INR (<1.2) APTT (22.0-30.0) sec Fibrinogen (200-500) mg/dL D-Dimer (<0.60) mg/L FEU Sodium (137-145) mmol/L Chloride (98-107) mmol/L Carbon Dioxide 20.3 L (22-30) mmol/L BUN (7-17) mg/dL BUN/Creatinine Ratio 23.00 H (12.00-20.00) Ratio Glucose (74-99) mg/dL Calcium 6.9 L (8.4-10.2) mg/dL Total Bilirubin 4.1 H (0.2-1.3) mg/dL AST 167 H (14-36) U/L ALT 65 H (4-34) U/L Alkaline Phosphatase 280 H (38-126) U/L Total Protein 4.4 L (6.3-8.2) g/dL Albumin 2.2 L (3.5-5.0) g/dL Albumin/Globulin Ratio 1.00 L (1.60-3.17) Ratio Ur Specific [place] (1.001-1.035) Urine Protein (Negative) Urine Blood (Negative) Urine RBC (0-5) /hpf Hyaline Casts (0-2) /lpf Urine Mucus (None) /hpf Urine Yeast (Budding) (None) /hpf 12/14/23 Range/Units 09:31 WBC (3.8-10.6) k/uL RDW (11.5-15.5) % Plt Count (150-450) k/uL Immature Gran # (0.00-0.04) X 10*3/uL Neutrophils # (1.3-7.7) k/uL Neutrophils # (Manual) (1.3-7.7) k/uL Monocytes # (0-1.0) k/uL Eosinophils # (0.04-0.35) X 10*3/uL Nucleated RBCs (0-0) /100 WBC NRBC/100 WBC Diff (0.00-0.01) X 10*3/uL Immature Plt Fraction (1.1-6.1) % PT 23.4 H (10.0-12.5) sec INR 2.4 H (<1.2) APTT 42.1 H (22.0-30.0) sec Fibrinogen 162 L (200-500) mg/dL D-Dimer (<0.60) mg/L FEU Sodium (137-145) mmol/L Chloride (98-107) mmol/L Carbon Dioxide (22-30) mmol/L BUN (7-17) mg/dL BUN/Creatinine Ratio (12.00-20.00) Ratio Glucose (74-99) mg/dL Calcium (8.4-10.2) mg/dL Total Bilirubin (0.2-1.3) mg/dL AST (14-36) U/L ALT (4-34) U/L Alkaline Phosphatase (38-126) U/L Total Protein (6.3-8.2) g/dL Albumin (3.5-5.0) g/dL Albumin/Globulin Ratio (1.60-3.17) Ratio Ur Specific [place] (1.001-1.035) Urine Protein (Negative) Urine Blood (Negative) Urine RBC (0-5) /hpf Hyaline Casts (0-2) /lpf Urine Mucus (None) /hpf Urine Yeast (Budding) (None) /hpf Diabetes panel 12/13/23 12/14/23 Range/Units 17:00 05:46 Sodium 135 L 137 (137-145) mmol/L Potassium 3.7 4.2 (3.5-5.1) mmol/L Chloride 109 H 108 (98-107) mmol/L Carbon Dioxide 20 L 20.3 L (22-30) mmol/L BUN 26 H 20.7 (7-17) mg/dL Creatinine 1.01 0.9 (0.52-1.04) mg/dL Glucose 115 H 100 (74-99) mg/dL Calcium 7.3 L 6.9 L (8.4-10.2) mg/dL AST 229 H 167 H (14-36) U/L ALT 78 H 65 H (4-34) U/L Alkaline Phosphatase 365 H 280 H (38-126) U/L Total Protein 5.3 L 4.4 L (6.3-8.2) g/dL Albumin 2.2 L 2.2 L (3.5-5.0) g/dL Calcium panel 12/13/23 12/14/23 Range/Units 17:00 05:46 Calcium 7.3 L 6.9 L (8.4-10.2) mg/dL Phosphorus 2.9 (2.5-4.5) mg/dL Albumin 2.2 L 2.2 L (3.5-5.0) g/dL Pituitary panel 12/13/23 12/14/23 Range/Units 17:00 05:46 Sodium 135 L 137 (137-145) mmol/L Potassium 3.7 4.2 (3.5-5.1) mmol/L Chloride 109 H 108 (98-107) mmol/L Carbon Dioxide 20 L 20.3 L (22-30) mmol/L BUN 26 H 20.7 (7-17) mg/dL Creatinine 1.01 0.9 (0.52-1.04) mg/dL Glucose 115 H 100 (74-99) mg/dL Calcium 7.3 L 6.9 L (8.4-10.2) mg/dL Adrenal panel 12/13/23 12/14/23 Range/Units 17:00 05:46 Sodium 135 L 137 (137-145) mmol/L Potassium 3.7 4.2 (3.5-5.1) mmol/L Chloride 109 H 108 (98-107) mmol/L Carbon Dioxide 20 L 20.3 L (22-30) mmol/L BUN 26 H 20.7 (7-17) mg/dL Creatinine 1.01 0.9 (0.52-1.04) mg/dL Glucose 115 H 100 (74-99) mg/dL Calcium 7.3 L 6.9 L (8.4-10.2) mg/dL Total Bilirubin 5.9 H 4.1 H (0.2-1.3) mg/dL AST 229 H 167 H (14-36) U/L ALT 78 H 65 H (4-34) U/L Alkaline Phosphatase 365 H 280 H (38-126) U/L Total Protein 5.3 L 4.4 L (6.3-8.2) g/dL Albumin 2.2 L 2.2 L (3.5-5.0) g/dL
--- NOTE | 2023-12-14 15:08 | P.CONS ---
History of Present Illness - Reason for Consult Consult date: 12/14/23 breast cancer Requesting physician: Jay Jones - Chief Complaint abd pain, n/v, weakness - History of Present Illness Ms. Jones is a 43-year-old woman with a past medical history significant for stage IIIa triple negative invasive ductal carcinoma of the right breast status post 4 cycles of carboplatin/paclitaxel/pembrolizumab followed by 3 cycles of AC plus pembrolizumab complicated by adrenal insufficiency secondary to immunotherapy and subsequent bilateral mastectomy on 05/11/2023 with pathologic complete response who presents with intermittent nausea. She was most recently seen in clinic on 11/29/2022 where she noted preceding URI with fatigue. Since this visit, she developed progressive nausea and dry heaving without vomiting. Appetite is significantly decreased during this time along with intermittent abdominal pain. Given the signs and symptoms at that time she presented to the ED for additional management. Labs in clinic noted hepatocellular and cholestatic transaminitis, which was also noted on admission. Unfortunately, gallbladder ultrasound noted pericholecystic fluid surrounding the gallbladder along with hepatic lesions and MRI of the liver noted left hepatic lobe lesion measuring 5.1 cm. She underwent cholecystectomy on 12/09/2023 with noted inflamed gallbladder along with nodular lesions on the liver with biopsy of one of the lesions performed. Additional imaging was obtained and CT chest revealed no acute findings. Bone scan revealed uptake in the bilateral ribs, right hemisacrum, and left ilium adjacent to the SI joint and left femoral supracondylar region medially concerning for metastatic disease. Patient improved and was subsequently discharged with clinic f/u scheduled to discuss path results. Path is currently still pending, but Dr. Caballero spoke with pathologist today and preliminary report is appearing to be metastatic breast cancer. Patient represented to the ER with complaints of abd pain, n/v, and weakness that began to worsen 2 days ago. She has had 3 episodes of vomiting over the last 24 hours, reports no vomiting today. On admission total bilirubin was 5.9, AST 229, ALT 78, alkaline phosphatase 365. CBC was notable for WBC 20.8, hemoglobin 14.4, platelets 17,000. Coags were also elevated with a fibrinfogen of 76, consistent with DIC, 1 dose pooled cyroprecipitate was given. Repeat DIC labs today showed mild increase in coags with improved fibrinogen of 162. No reported episodes of acute bleeding. D Dimer elevated at 34.1. She did have a decrease in liver enzymes and total bilirubin since admission with AST 167, ALT 65, alkaline phosphatase 280, and total bilirubin 4.1. Viral panel negative, UA not suscipious for UTI, blood cultures pending. Patient afebrile. CTA chest obtained revealing no evidence of pulmonary embolism. Trace bilateral pleural effusions. And no evidence for lymphadenopathy or suspicious pulmonary nodule. CT abdomen pelvis with contrast showed postcholecystectomy changes with high density fluid in the pelvis around the uterus posteriorly representing blood products. No evidence for pneumoperitoneum or organizing peripheral enhancing fluid collection to suggest abscess. Persistent liver lesions as previously noted on MRI from 12/06/2023, concerning for metastatic disease. Review of Systems 10 point ROS is negative except as stated in the HPI Past Medical History Past Medical History: Cancer Additional Past Medical History / Comment(s): new dx. breast cancer, chemo induced Adrenal insufficiency History of Any Multi-Drug Resistant Organisms: None Reported Past Surgical History: Breast Surgery, Tonsillectomy Additional Past Surgical History / Comment(s): bilateral mastectomy May 13 2023 Past Anesthesia/Blood Transfusion Reactions: No Reported Reaction Past Psychological History: No Psychological Hx Reported Smoking Status: Never smoker Past Alcohol Use History: None Reported Past Drug Use History: None Reported - Past Family History Father Family Medical History: Cancer Additional Family Medical History / Comment(s): brain, paternal grandmother breast cancer Medications and Allergies Home Medications Medication Instructions Recorded Confirmed Type Ergocalciferol [Vitamin D2 (1250 1,250 mcg PO QMONTHLY 10/15/22 12/13/23 History Mcg = 20678 Iu)] Hydrocortisone [Cortef] 10 mg PO DAILY@1800 12/06/23 12/13/23 History Hydrocortisone [Cortef] 20 mg PO DAILY@1300 12/06/23 12/13/23 History cefUROXime axetiL [Ceftin] 500 mg PO BID 7 Days #14 tab 12/11/23 12/13/23 Rx metroNIDAZOLE [Flagyl] 500 mg PO TID 7 Days #21 tab 12/11/23 12/13/23 Rx Allergies Allergy/AdvReac Type Severity Reaction Status Date / Time sulfamethoxazole Allergy Rash/Hives Verified 12/13/23 18:08 [From Bactrim] trimethoprim [From Bactrim] Allergy Rash/Hives Verified 12/13/23 18:08 Physical Exam Vitals: Vital Signs Temp Pulse Pulse Pulse Resp BP BP 12/14/23 07:24 97.5 F L 70 18 12/14/23 00:50 97.5 F L 70 16 124/83 12/13/23 23:22 98 F 65 18 105/69 12/13/23 22:53 98 F 67 18 112/68 12/13/23 22:33 98 F 68 16 110/66 12/13/23 22:12 98.6 F 64 16 108/64 12/13/23 21:19 97.9 F 63 18 110/57 12/13/23 19:57 65 18 103/66 12/13/23 14:33 97.7 F 98 18 178/121 BP Pulse Ox 12/14/23 07:24 102/67 92 L 12/14/23 00:50 95 12/13/23 23:22 93 L 12/13/23 22:53 93 L 12/13/23 22:33 95 12/13/23 22:12 93 L 12/13/23 21:19 93 L 12/13/23 19:57 94 L 12/13/23 14:33 93 L Intake and Output 12/13/23 12/14/23 12/14/23 22:59 06:59 14:59 Intake Total 0 77 Balance 0 77 Intake: Blood Product 0 77 Pooled Cryoprecipitate 0 77 Unit [id number] Other: # Voids 1 1 Weight 136 kg - Constitutional General appearance: no acute distress - EENT Eyes: EOMI ENT: hearing grossly normal - Neck Neck: no lymphadenopathy - Respiratory Respiratory: bilateral: CTA - Cardiovascular Rhythm: regular Heart sounds: normal: S1, S2 - Gastrointestinal General gastrointestinal: soft, tenderness Localized gastrointestinal: tender: RLQ - Integumentary Integumentary: no cyanotic - Neurologic Neurologic: CNII-XII intact - Musculoskeletal Musculoskeletal: strength equal bilaterally - Psychiatric Psychiatric: A&O x's 3 Results CBC & Chem 7: 12/14/23 05:46 12/14/23 05:46 Labs: Abnormal Lab Results - Last 24 Hours (Table) 12/13/23 12/13/23 12/13/23 Range/Units 17:00 17:00 17:00 WBC 20.8 H (3.8-10.6) k/uL RDW 17.3 H (11.5-15.5) % Plt Count 17 L* D (150-450) k/uL Immature Gran # (0.00-0.04) X 10*3/uL Neutrophils # 16.6 H (1.3-7.7) k/uL Neutrophils # (Manual) (1.3-7.7) k/uL Monocytes # 1.4 H (0-1.0) k/uL Eosinophils # (0.04-0.35) X 10*3/uL Nucleated RBCs (0-0) /100 WBC NRBC/100 WBC Diff (0.00-0.01) X 10*3/uL Immature Plt Fraction (1.1-6.1) % PT (10.0-12.5) sec INR (<1.2) APTT (22.0-30.0) sec Fibrinogen (200-500) mg/dL D-Dimer >34.10 H (<0.60) mg/L FEU Sodium 135 L (137-145) mmol/L Chloride 109 H (98-107) mmol/L Carbon Dioxide 20 L (22-30) mmol/L BUN 26 H (7-17) mg/dL Glucose 115 H (74-99) mg/dL Calcium 7.3 L (8.4-10.2) mg/dL Total Bilirubin 5.9 H (0.2-1.3) mg/dL AST 229 H (14-36) U/L ALT 78 H (4-34) U/L Alkaline Phosphatase 365 H (38-126) U/L Total Protein 5.3 L (6.3-8.2) g/dL Albumin 2.2 L (3.5-5.0) g/dL Ur Specific [place] (1.001-1.035) Urine Protein (Negative) Urine Blood (Negative) Urine RBC (0-5) /hpf Hyaline Casts (0-2) /lpf Urine Mucus (None) /hpf Urine Yeast (Budding) (None) /hpf 12/13/23 12/13/23 12/14/23 Range/Units 17:00 19:21 00:15 WBC (3.8-10.6) k/uL RDW (11.5-15.5) % Plt Count (150-450) k/uL Immature Gran # (0.00-0.04) X 10*3/uL Neutrophils # (1.3-7.7) k/uL Neutrophils # (Manual) (1.3-7.7) k/uL Monocytes # (0-1.0) k/uL Eosinophils # (0.04-0.35) X 10*3/uL Nucleated RBCs (0-0) /100 WBC NRBC/100 WBC Diff (0.00-0.01) X 10*3/uL Immature Plt Fraction (1.1-6.1) % PT 20.5 H (10.0-12.5) sec INR 2.0 H (<1.2) APTT 40.6 H (22.0-30.0) sec Fibrinogen 76 L* (200-500) mg/dL D-Dimer (<0.60) mg/L FEU Sodium (137-145) mmol/L Chloride (98-107) mmol/L Carbon Dioxide (22-30) mmol/L BUN (7-17) mg/dL Glucose (74-99) mg/dL Calcium (8.4-10.2) mg/dL Total Bilirubin (0.2-1.3) mg/dL AST (14-36) U/L ALT (4-34) U/L Alkaline Phosphatase (38-126) U/L Total Protein (6.3-8.2) g/dL Albumin (3.5-5.0) g/dL Ur Specific [place] >1.050 H (1.001-1.035) Urine Protein Trace H (Negative) Urine Blood Moderate H (Negative) Urine RBC 115 H (0-5) /hpf Hyaline Casts 3 H (0-2) /lpf Urine Mucus Rare H (None) /hpf Urine Yeast (Budding) Rare H (None) /hpf 12/14/23 12/14/23 Range/Units 00:19 05:46 WBC 23.1 H 26.71 H (3.8-10.6) k/uL RDW 18.2 H 18.6 H (11.5-15.5) % Plt Count 20 L 22 L (150-450) k/uL Immature Gran # 0.30 H (0.00-0.04) X 10*3/uL Neutrophils # 21.60 H (1.3-7.7) k/uL Neutrophils # (Manual) 21.70 H (1.3-7.7) k/uL Monocytes # 2.73 H (0-1.0) k/uL Eosinophils # 0 L (0.04-0.35) X 10*3/uL Nucleated RBCs 2 H (0-0) /100 WBC NRBC/100 WBC Diff 0.15 H (0.00-0.01) X 10*3/uL Immature Plt Fraction 30.1 H (1.1-6.1) % PT (10.0-12.5) sec INR (<1.2) APTT (22.0-30.0) sec Fibrinogen (200-500) mg/dL D-Dimer (<0.60) mg/L FEU Sodium (137-145) mmol/L Chloride (98-107) mmol/L Carbon Dioxide (22-30) mmol/L BUN (7-17) mg/dL Glucose (74-99) mg/dL Calcium (8.4-10.2) mg/dL Total Bilirubin (0.2-1.3) mg/dL AST (14-36) U/L ALT (4-34) U/L Alkaline Phosphatase (38-126) U/L Total Protein (6.3-8.2) g/dL Albumin (3.5-5.0) g/dL Ur Specific [place] (1.001-1.035) Urine Protein (Negative) Urine Blood (Negative) Urine RBC (0-5) /hpf Hyaline Casts (0-2) /lpf Urine Mucus (None) /hpf Urine Yeast (Budding) (None) /hpf CT scan - abdomen: report reviewed CT scan - chest: report reviewed CT scan - pelvis: report reviewed Assessment and Plan (1) DIC (disseminated intravascular coagulation) Current Visit: Yes Status: Acute Priority: High Code(s): D65 - DISSEMINATED INTRAVASCULAR COAGULATION SNOMED Code(s): 06641993 (2) Nausea and vomiting Current Visit: Yes Status: Acute Priority: Medium Code(s): R11.2 - NAUSEA WITH VOMITING, UNSPECIFIED SNOMED Code(s): 98813575 (3) Post-op pain Current Visit: Yes Status: Acute Priority: Medium Code(s): G89.18 - OTHER ACUTE POSTPROCEDURAL PAIN SNOMED Code(s): 315193306 (4) Thrombocytopenia Current Visit: Yes Status: Acute Priority: High Code(s): D69.6 - THROMBOCYTOPENIA, UNSPECIFIED SNOMED Code(s): 071049240 (5) Stage III breast cancer in female Current Visit: No Status: Acute Priority: High Code(s): C50.919 - MALIGNANT NEOPLASM OF UNSP SITE OF UNSPECIFIED FEMALE BREAST SNOMED Code(s): 61312773 Plan: Abd pain, transaminitis with hepatic lesion: S/p karla on 12/08. Noted to have progressing nausea/vomiting, abd pain and weakness over the last 2 days -Labs in clinic noted hepatocellular and cholestatic transaminitis, which was also noted on this and prior admission -During last admission, gallbladder ultrasound noted pericholecystic fluid surrounding the gallbladder along with hepatic lesions and MRI of the liver noted left hepatic lobe lesion measuring 5.1 cm. -Underwent cholecystectomy on 12/09/2023 with noted inflamed gallbladder along with nodular lesions on the liver with biopsy of one of the lesions performed -Path is currently still pending, but Dr. Caballero spoke with pathologist today and preliminary report is appearing to be metastatic breast cancer. Should have finalized report later today -Will obtain repeat US gallbladder for further evaluation to r/o obstruction, however, CT AP did not note findings of the same, and noted liver failure and hyperbilrubinemia is likely related to metastatic disease DIC: -CBC was notable for platelets 17,000. Hemoglobin stable at 14.4, Coags were elevated with a fibrinfogen of 76, consistent with DIC -S/p 1 dose pooled cyroprecipitate -Repeat DIC labs today showed mild increase in coags, PT 23.4, INR 2.4, PTT 42. 1, fibrinogen improved at 162, with no reported episodes of acute bleeding -1 dose Vit K 5mg ordered -Will recheck DIC labs q12hrs. Please transfuse cyroprecipitate if fibrinogen less than 100 -Please transfuse for plts less than 10,000 or if symptomatic -Hold anticoagulation and NSAIDs Stage IIIA triple negative breast cancer: -Underwent neoadjuvant chemoimmunotherapy with carboplatin/Taxol/Keytruda for 4 cycles followed by 3 cycles of AC plus Keytruda -Treatment was complicated by adrenal insufficiency secondary to Keytruda, cycle 4 of AC plus Keytruda omitted -Bilateral mastectomy performed at on 05/11/2023 noted pathologic complete response -CT chest revealed no acute findings -Bone scan revealed uptake in the bilateral ribs, right hemisacrum, and left ilium adjacent to the SI joint and left femoral supracondylar region medially concerning for metastatic disease -Findings from surgery as well as scans, and concern for metastatic malignancy were discussed in detail today with patient and spouse. Further discussed that due to progressing acute liver failure, pending finalized path report, which at this time is appearing to confirm metastatic triple negative breast cancer, we recommend starting single agent Taxol inpatient. She was agreeable with this plan Doctor attests: I performed a history and physical examination of this patient, developed impression and plan of care. Discussed with dictator. I agree with dictators note, documented as a scribe.
--- NOTE | 2023-12-14 15:23 | P.HPIM ---
History of Present Illness H&P Date: 12/14/23 This is a pleasant 43-year-old female who presented to the emergency department with increased abdominal pain, postop nausea and vomiting with decreased oral intake and dehydration. Patient recently was hospitalized underwent liver biopsy along with acute cholecystectomy with general surgery Dr. Vuong last week. Patient reports she continued to have abdominal pain and difficulty tolerating oral intake and recently started developing nausea and vomiting again. Patient reports severe abdominal pain with no improvement. Patient reports having minimal bowel movements although is passing gas and is urinating with no difficulties. Labs reviewed on admission and had a D-dimer done which w as significantly elevated underwent CTA with no suggestion of PE. Other labs reveal an elevated white count of 20.8, hemoglobin stable at 14.4, platelets significantly low at 17, INR 2.0, D-dimer above 34, sodium 135, potassium 3.7, creatinine 1.01, lactic acid was 2.0, total bili is 5.9 with an AST of 229 and ALT is 78 and alk phos is 365, lipase was 34. Urinalysis was negative and influenza/COVID/RSV are all negative as well. Patient was admitted for dehydration with general surgery as well as oncology on consult. Patient did undergo a liver biopsy last admission during the cholecystectomy which remains pending. Patient having an increasing white count this morning of 26 with no fevers noted and empiric antibiotics started and will consult infectious disease and appreciate input and recommendations. EKG shows sinus rhythm, abdominal pelvis CT shows postcholecystectomy changes with high density fluid in the pelvis around the uterus posteriorly representing possible blood products with no evidence of pneumoperitoneum or organizing peripheral enhancing fluid collection to suggest abscess, persistent liver lesions as noted on MRI from 422 concerning of metastatic disease until proven otherwise and a trace bilateral pleural effusions. Patient is on room air and denies significant shortness of breath although does feel exerted with minimal exertion. Will add incentive spirometer. REVIEW OF SYSTEMS: CONSTITUTIONAL: No fever, no malaise, reports of fatigue. HEENT: No recent visual problems or hearing problems. Denied any sore throat. CARDIOVASCULAR: No chest pain, orthopnea, PND, no palpitations, no syncope. PULMONARY: Reports of intermittent shortness of breath with exertion, no cough, no hemoptysis. GASTROINTESTINAL: No diarrhea, reports nausea, reports vomiting, reports significant abdominal pain. NEUROLOGICAL: No headaches, no weakness, no numbness. HEMATOLOGICAL: Denies any bleeding or petechiae. GENITOURINARY: Denies any burning micturition, frequency, or urgency. Patient reports noting blood with every wipe post urination MUSCULOSKELETAL/RHEUMATOLOGICAL: Denies any joint pain, swelling, or any muscle pain. ENDOCRINE: Denies any polyuria or polydipsia. The rest of the 14-point review of systems is negative. PHYSICAL EXAMINATION: GENERAL: The patient is alert and oriented x3, not in any acute distress. Well developed, well nourished. Morbidly obese HEENT: Pupils are round and equally reacting to light. EOMI. No scleral icterus. No conjunctival pallor. Normocephalic, atraumatic. No pharyngeal erythema. No thyromegaly. CARDIOVASCULAR: S1 and S2 present. No murmurs, rubs, or gallops. PULMONARY: Chest is clear to auscultation, no wheezing or crackles. ABDOMEN: Soft, tender, nondistended, normoactive bowel sounds. No palpable o rganomegaly. Surgical sites are dry and intact MUSCULOSKELETAL: No joint swelling or deformity. EXTREMITIES: No cyanosis, clubbing, or pedal edema. NEUROLOGICAL: Gross neurological examination did not reveal any focal deficits. SKIN: No rashes. Assessment: Nausea vomiting, decreased oral intake with dehydration and continued abdominal pain, multifactorial, most likely secondary to metastatic disease Status post laparoscopic cholecystectomy last week Significant leukocytosis, multifactorial possibly reactive Status post liver biopsy which is currently pending, highly suggestive of metastasis with multiple liver lesions noted History of known breast cancer status post bilateral mastectomy in [place] in the summer 2022 with radiation treatment completed in August Chemotherapy induced adrenal insufficiency Morbid obesity with a BMI of 40.7 GI prophylaxis DVT prophylaxis Full code Plan: Patient was admitted with continued abdominal pain with nausea and vomiting with general surgery on consult as patient is recent laparoscopic cholecystectomy on 12/09/2023 Patient did have a biopsy of the liver obtained at that time which is currently pending. Oncology consulted as patient is history of breast cancer with mastectomy with noted liver lesions that are most likely metastatic. Recent bone scan on last admission also with increased uptake noted in multiple ribs White count elevated at 26 today and antibiotics initiated, will consult infectious disease and appreciate input and recommendations Home medications reviewed and resumed as appropriate Encourage incentive spirometer use at least 10 times every hour while awake Will continue with pain management and antinausea medications Follow-up on repeat labs and monitor counts closely as patient was noted to have some bleeding noted on the paper while wiping after urinating. Transfuse if 7 or less. Hemoglobin is stable today at 12.7 Overall prognosis is extremely guarded at this time The impression and plan of care has been dictated by Vanna Stevens, Nurse Practitioner as directed. Dr. Leenane MD I have performed a history and examination and MDM of this patient, discussed the same with the dictator, and agree with the dictator's assessment and plan as written ,documented as a scribe. Based on total visit time, I have performed more than 50% of the visit. Past Medical History Past Medical History: Cancer Additional Past Medical History / Comment(s): new dx. breast cancer, chemo induced Adrenal insufficiency History of Any Multi-Drug Resistant Organisms: None Reported Past Surgical History: Breast Surgery, Tonsillectomy Additional Past Surgical History / Comment(s): bilateral mastectomy May 13 2023 Past Anesthesia/Blood Transfusion Reactions: No Reported Reaction Past Psychological History: No Psychological Hx Reported Smoking Status: Never smoker Past Alcohol Use History: None Reported Past Drug Use History: None Reported - Past Family History Father Family Medical History: Cancer Additional Family Medical History / Comment(s): brain, paternal grandmother breast cancer Medications and Allergies Home Medications Medication Instructions Recorded Confirmed Type Ergocalciferol [Vitamin D2 (1250 1,250 mcg PO QMONTHLY 10/15/22 12/13/23 History Mcg = 55718 Iu)] Hydrocortisone [Cortef] 10 mg PO DAILY@1800 12/06/23 12/13/23 History Hydrocortisone [Cortef] 20 mg PO DAILY@1300 12/06/23 12/13/23 History cefUROXime axetiL [Ceftin] 500 mg PO BID 7 Days #14 tab 12/11/23 12/13/23 Rx metroNIDAZOLE [Flagyl] 500 mg PO TID 7 Days #21 tab 12/11/23 12/13/23 Rx Allergies Allergy/AdvReac Type Severity Reaction Status Date / Time sulfamethoxazole Allergy Rash/Hives Verified 12/13/23 18:08 [From Bactrim] trimethoprim [From Bactrim] Allergy Rash/Hives Verified 12/13/23 18:08 Physical Exam Vitals: Vital Signs Temp Pulse Pulse Pulse Resp BP BP 12/14/23 07:24 97.5 F L 70 18 12/14/23 00:50 97.5 F L 70 16 124/83 12/13/23 23:22 98 F 65 18 105/69 12/13/23 22:53 98 F 67 18 112/68 12/13/23 22:33 98 F 68 16 110/66 12/13/23 22:12 98.6 F 64 16 108/64 12/13/23 21:19 97.9 F 63 18 110/57 12/13/23 19:57 65 18 103/66 12/13/23 14:33 97.7 F 98 18 178/121 BP Pulse Ox 12/14/23 07:24 102/67 92 L 12/14/23 00:50 95 12/13/23 23:22 93 L 12/13/23 22:53 93 L 12/13/23 22:33 95 12/13/23 22:12 93 L 12/13/23 21:19 93 L 12/13/23 19:57 94 L 12/13/23 14:33 93 L Intake and Output 12/13/23 12/14/23 12/14/23 22:59 06:59 14:59 Intake Total 0 77 Balance 0 77 Intake: Blood Product 0 77 Pooled Cryoprecipitate 0 77 Unit [id number] Other: # Voids 1 1 Weight 136 kg Results CBC & Chem 7: 12/14/23 05:46 12/14/23 05:46 Labs: Abnormal Lab Results - Last 24 Hours (Table) 12/13/23 12/13/23 12/13/23 Range/Units 17:00 17:00 17:00 WBC 20.8 H (3.8-10.6) k/uL RDW 17.3 H (11.5-15.5) % Plt Count 17 L* D (150-450) k/uL Immature Gran # (0.00-0.04) X 10*3/uL Neutrophils # 16.6 H (1.3-7.7) k/uL Neutrophils # (Manual) (1.3-7.7) k/uL Monocytes # 1.4 H (0-1.0) k/uL Eosinophils # (0.04-0.35) X 10*3/uL Nucleated RBCs (0-0) /100 WBC NRBC/100 WBC Diff (0.00-0.01) X 10*3/uL Immature Plt Fraction (1.1-6.1) % PT (10.0-12.5) sec INR (<1.2) APTT (22.0-30.0) sec Fibrinogen (200-500) mg/dL D-Dimer >34.10 H (<0.60) mg/L FEU Sodium 135 L (137-145) mmol/L Chloride 109 H (98-107) mmol/L Carbon Dioxide 20 L (22-30) mmol/L BUN 26 H (7-17) mg/dL BUN/Creatinine Ratio (12.00-20.00) Ratio Glucose 115 H (74-99) mg/dL Calcium 7.3 L (8.4-10.2) mg/dL Total Bilirubin 5.9 H (0.2-1.3) mg/dL AST 229 H (14-36) U/L ALT 78 H (4-34) U/L Alkaline Phosphatase 365 H (38-126) U/L Total Protein 5.3 L (6.3-8.2) g/dL Albumin 2.2 L (3.5-5.0) g/dL Albumin/Globulin Ratio (1.60-3.17) Ratio Ur Specific [place] (1.001-1.035) Urine Protein (Negative) Urine Blood (Negative) Urine RBC (0-5) /hpf Hyaline Casts (0-2) /lpf Urine Mucus (None) /hpf Urine Yeast (Budding) (None) /hpf 12/13/23 12/13/23 12/14/23 Range/Units 17:00 19:21 00:15 WBC (3.8-10.6) k/uL RDW (11.5-15.5) % Plt Count (150-450) k/uL Immature Gran # (0.00-0.04) X 10*3/uL Neutrophils # (1.3-7.7) k/uL Neutrophils # (Manual) (1.3-7.7) k/uL Monocytes # (0-1.0) k/uL Eosinophils # (0.04-0.35) X 10*3/uL Nucleated RBCs (0-0) /100 WBC NRBC/100 WBC Diff (0.00-0.01) X 10*3/uL Immature Plt Fraction (1.1-6.1) % PT 20.5 H (10.0-12.5) sec INR 2.0 H (<1.2) APTT 40.6 H (22.0-30.0) sec Fibrinogen 76 L* (200-500) mg/dL D-Dimer (<0.60) mg/L FEU Sodium (137-145) mmol/L Chloride (98-107) mmol/L Carbon Dioxide (22-30) mmol/L BUN (7-17) mg/dL BUN/Creatinine Ratio (12.00-20.00) Ratio Glucose (74-99) mg/dL Calcium (8.4-10.2) mg/dL Total Bilirubin (0.2-1.3) mg/dL AST (14-36) U/L ALT (4-34) U/L Alkaline Phosphatase (38-126) U/L Total Protein (6.3-8.2) g/dL Albumin (3.5-5.0) g/dL Albumin/Globulin Ratio (1.60-3.17) Ratio Ur Specific [place] >1.050 H (1.001-1.035) Urine Protein Trace H (Negative) Urine Blood Moderate H (Negative) Urine RBC 115 H (0-5) /hpf Hyaline Casts 3 H (0-2) /lpf Urine Mucus Rare H (None) /hpf Urine Yeast (Budding) Rare H (None) /hpf 12/14/23 12/14/23 12/14/23 Range/Units 00:19 05:46 05:46 WBC 23.1 H 26.71 H (3.8-10.6) k/uL RDW 18.2 H 18.6 H (11.5-15.5) % Plt Count 20 L 22 L (150-450) k/uL Immature Gran # 0.30 H (0.00-0.04) X 10*3/uL Neutrophils # 21.60 H (1.3-7.7) k/uL Neutrophils # (Manual) 21.70 H (1.3-7.7) k/uL Monocytes # 2.73 H (0-1.0) k/uL Eosinophils # 0 L (0.04-0.35) X 10*3/uL Nucleated RBCs 2 H (0-0) /100 WBC NRBC/100 WBC Diff 0.15 H (0.00-0.01) X 10*3/uL Immature Plt Fraction 30.1 H (1.1-6.1) % PT (10.0-12.5) sec INR (<1.2) APTT (22.0-30.0) sec Fibrinogen (200-500) mg/dL D-Dimer (<0.60) mg/L FEU Sodium (137-145) mmol/L Chloride (98-107) mmol/L Carbon Dioxide 20.3 L (22-30) mmol/L BUN (7-17) mg/dL BUN/Creatinine Ratio 23.00 H (12.00-20.00) Ratio Glucose (74-99) mg/dL Calcium 6.9 L (8.4-10.2) mg/dL Total Bilirubin 4.1 H (0.2-1.3) mg/dL AST 167 H (14-36) U/L ALT 65 H (4-34) U/L Alkaline Phosphatase 280 H (38-126) U/L Total Protein 4.4 L (6.3-8.2) g/dL Albumin 2.2 L (3.5-5.0) g/dL Albumin/Globulin Ratio 1.00 L (1.60-3.17) Ratio Ur Specific [place] (1.001-1.035) Urine Protein (Negative) Urine Blood (Negative) Urine RBC (0-5) /hpf Hyaline Casts (0-2) /lpf Urine Mucus (None) /hpf Urine Yeast (Budding) (None) /hpf Thrombosis Risk Factor Assmnt - Choose All That Apply Any of the Below Risk Factors Present?: Yes Each Factor Represents 1 point: Age 41-60 years, Obesity (BMI >25), Swollen legs (current) Each Risk Factor Represents 2 Points: Laparoscopic surgery Other congenital or acquired thrombophilia - If yes, enter type in comment: No Thrombosis Risk Factor Assessment Total Risk Factor Score: 5 Thrombosis Risk Factor Assessment Level: High Risk
--- NOTE | 2023-12-14 15:44 | US ---
EXAMINATION TYPE: US gallbladder DATE OF EXAM: 12/14/2023 COMPARISON: NONE CLINICAL INDICATION: Female, 43 years old with history of elevated bili/LFTS, recent karla, r/o obstr uction; Cholecystectomy 8 days ago, N/V, h/o new liver lesions, Breast CA last year TECHNIQUE: Multiple sonographic images of the right upper quadrant are obtained. FINDINGS: EXAM MEASUREMENTS: Liver Length: 20.7 cm Gallbladder Wall: Surgically absent CBD: 0.5 cm Right Kidney: 9.4 x 4.1 x 4.7 cm [employer]ANT NOTES:air post karla and habitus limits exam Pancreas: portion seen appear wnl, with prominent node seen near head Liver: very difficult to penetrate and enlarged, lesioned noted previously harder to image today due to reasons stated above Gallbladder: surgically removed Evidence for sonographic Pastor's sign: no CBD: wnl Right Kidney: wnl IMPRESSION: 1. Post cholecystectomy changes without evidence for organizing fluid collection. 2. Lesion seen on prior CT are less well appreciated on today's exam.
--- NOTE | 2023-12-14 19:48 | P.CONS ---
History of Present Illness - Reason for Consult Consult date: 12/14/23 - History of Present Illness Patient is a 43-year-old female with a past medical history significant for breast cancer status post bilateral mastectomy April 2023 followed by chemotherapy patient was recently admitted to this facility did have a right upper quadrant pain elevated white count and concern for cholecystitis in this patient who is status post laparoscopic cholecystectomy along with laparoscopic biopsy of the liver lesion which apparently are suggestive of metastatic breast cancer. Patient now presenting back to the hospital concerning for abdominal pain nausea and vomiting and weakness that has been going on for 2 days before presentation to the hospital patient did have about 3 episodes of vomiting and complaining of pain mostly to the right lower abdominal area describing the pain to be sharp mild to moderate intensity without any radiation patient denies having any diarrhea or constipation no urinary or vaginal drainage patient on admission to the hospital was afebrile and no fever have been recorded subsequently patient was not tachycardic hypotensive or hypoxic and no need for supplemental oxygen patient did have white count of 23.1 with a left shift creatinine 0.9 liver e nzymes are elevated urine is negative influenza RSV COVID testing was negative patient did have a abdominal pelvis CT postcholecystectomy changes with high density fluid in the pelvis around the uterus posteriorly representing blood products no evidence for pneumoperitoneum or organizing peripheral enhancing fluid collection to suggest abscess persistent liver lesion concerning for metastatic disease trace bilateral effusion patient did have a CTA no evidence for PE trace bilateral effusion patient was started on vancomycin and Zosyn infectious disease was consulted regarding postop fever and elevated white count Past Medical History Past Medical History: Cancer Additional Past Medical History / Comment(s): new dx. breast cancer, chemo induced Adrenal insufficiency History of Any Multi-Drug Resistant Organisms: None Reported Past Surgical History: Breast Surgery, Tonsillectomy Additional Past Surgical History / Comment(s): bilateral mastectomy May 13 2023 Past Anesthesia/Blood Transfusion Reactions: No Reported Reaction Past Psychological History: No Psychological Hx Reported Smoking Status: Never smoker Past Alcohol Use History: None Reported Past Drug Use History: None Reported - Past Family History Father Family Medical History: Cancer Additional Family Medical History / Comment(s): brain, paternal grandmother breast cancer Medications and Allergies Home Medications Medication Instructions Recorded Confirmed Type Ergocalciferol [Vitamin D2 (1250 1,250 mcg PO QMONTHLY 10/15/22 12/13/23 History Mcg = 76584 Iu)] Hydrocortisone [Cortef] 10 mg PO DAILY@1800 12/06/23 12/13/23 History Hydrocortisone [Cortef] 20 mg PO DAILY@1300 12/06/23 12/13/23 History cefUROXime axetiL [Ceftin] 500 mg PO BID 7 Days #14 tab 12/11/23 12/13/23 Rx metroNIDAZOLE [Flagyl] 500 mg PO TID 7 Days #21 tab 12/11/23 12/13/23 Rx Allergies Allergy/AdvReac Type Severity Reaction Status Date / Time sulfamethoxazole Allergy Rash/Hives Verified 12/13/23 18:08 [From Bactrim] trimethoprim [From Bactrim] Allergy Rash/Hives Verified 12/13/23 18:08 Physical Exam Vitals: Vital Signs Temp Pulse Pulse Pulse Resp BP BP 12/14/23 13:04 97.4 F L 69 16 106/71 12/14/23 12:09 97.5 F L 70 16 96/65 12/14/23 07:24 97.5 F L 70 18 12/14/23 00:50 97.5 F L 70 16 124/83 12/13/23 23:22 98 F 65 18 105/69 12/13/23 22:53 98 F 67 18 112/68 12/13/23 22:33 98 F 68 16 110/66 12/13/23 22:12 98.6 F 64 16 108/64 12/13/23 21:19 97.9 F 63 18 110/57 12/13/23 19:57 65 18 103/66 12/13/23 14:33 97.7 F 98 18 178/121 BP Pulse Ox 12/14/23 13:04 95 12/14/23 12:09 94 L 12/14/23 07:24 102/67 92 L 12/14/23 00:50 95 12/13/23 23:22 93 L 12/13/23 22:53 93 L 12/13/23 22:33 95 12/13/23 22:12 93 L 12/13/23 21:19 93 L 12/13/23 19:57 94 L 12/13/23 14:33 93 L Intake and Output 12/13/23 12/14/23 12/14/23 22:59 06:59 14:59 Intake Total 0 77 Balance 0 77 Intake: Blood Product 0 77 Pooled Cryoprecipitate 0 77 Unit [id number] Other: Voiding Method Toilet # Voids 1 1 Weight 136 kg 136 kg Results CBC & Chem 7: 12/16/23 06:44 12/16/23 06:44 Labs: Abnormal Lab Results - Last 24 Hours (Table) 12/13/23 12/13/23 12/13/23 Range/Units 17:00 17:00 17:00 WBC 20.8 H (3.8-10.6) k/uL RDW 17.3 H (11.5-15.5) % Plt Count 17 L* D (150-450) k/uL Immature Gran # (0.00-0.04) X 10*3/uL Neutrophils # 16.6 H (1.3-7.7) k/uL Neutrophils # (Manual) (1.3-7.7) k/uL Monocytes # 1.4 H (0-1.0) k/uL Eosinophils # (0.04-0.35) X 10*3/uL Nucleated RBCs (0-0) /100 WBC NRBC/100 WBC Diff (0.00-0.01) X 10*3/uL Immature Plt Fraction (1.1-6.1) % PT (10.0-12.5) sec INR (<1.2) APTT (22.0-30.0) sec Fibrinogen (200-500) mg/dL D-Dimer >34.10 H (<0.60) mg/L FEU Sodium 135 L (137-145) mmol/L Chloride 109 H (98-107) mmol/L Carbon Dioxide 20 L (22-30) mmol/L BUN 26 H (7-17) mg/dL BUN/Creatinine Ratio (12.00-20.00) Ratio Glucose 115 H (74-99) mg/dL Calcium 7.3 L (8.4-10.2) mg/dL Total Bilirubin 5.9 H (0.2-1.3) mg/dL AST 229 H (14-36) U/L ALT 78 H (4-34) U/L Alkaline Phosphatase 365 H (38-126) U/L Total Protein 5.3 L (6.3-8.2) g/dL Albumin 2.2 L (3.5-5.0) g/dL Albumin/Globulin Ratio (1.60-3.17) Ratio Ur Specific [place] (1.001-1.035) Urine Protein (Negative) Urine Blood (Negative) Urine RBC (0-5) /hpf Hyaline Casts (0-2) /lpf Urine Mucus (None) /hpf Urine Yeast (Budding) (None) /hpf 12/13/23 12/13/23 12/14/23 Range/Units 17:00 19:21 00:15 WBC (3.8-10.6) k/uL RDW (11.5-15.5) % Plt Count (150-450) k/uL Immature Gran # (0.00-0.04) X 10*3/uL Neutrophils # (1.3-7.7) k/uL Neutrophils # (Manual) (1.3-7.7) k/uL Monocytes # (0-1.0) k/uL Eosinophils # (0.04-0.35) X 10*3/uL Nucleated RBCs (0-0) /100 WBC NRBC/100 WBC Diff (0.00-0.01) X 10*3/uL Immature Plt Fraction (1.1-6.1) % PT 20.5 H (10.0-12.5) sec INR 2.0 H (<1.2) APTT 40.6 H (22.0-30.0) sec Fibrinogen 76 L* (200-500) mg/dL D-Dimer (<0.60) mg/L FEU Sodium (137-145) mmol/L Chloride (98-107) mmol/L Carbon Dioxide (22-30) mmol/L BUN (7-17) mg/dL BUN/Creatinine Ratio (12.00-20.00) Ratio Glucose (74-99) mg/dL Calcium (8.4-10.2) mg/dL Total Bilirubin (0.2-1.3) mg/dL AST (14-36) U/L ALT (4-34) U/L Alkaline Phosphatase (38-126) U/L Total Protein (6.3-8.2) g/dL Albumin (3.5-5.0) g/dL Albumin/Globulin Ratio (1.60-3.17) Ratio Ur Specific [place] >1.050 H (1.001-1.035) Urine Protein Trace H (Negative) Urine Blood Moderate H (Negative) Urine RBC 115 H (0-5) /hpf Hyaline Casts 3 H (0-2) /lpf Urine Mucus Rare H (None) /hpf Urine Yeast (Budding) Rare H (None) /hpf 12/14/23 12/14/23 12/14/23 Range/Units 00:19 05:46 05:46 WBC 23.1 H 26.71 H (3.8-10.6) k/uL RDW 18.2 H 18.6 H (11.5-15.5) % Plt Count 20 L 22 L (150-450) k/uL Immature Gran # 0.30 H (0.00-0.04) X 10*3/uL Neutrophils # 21.60 H (1.3-7.7) k/uL Neutrophils # (Manual) 21.70 H (1.3-7.7) k/uL Monocytes # 2.73 H (0-1.0) k/uL Eosinophils # 0 L (0.04-0.35) X 10*3/uL Nucleated RBCs 2 H (0-0) /100 WBC NRBC/100 WBC Diff 0.15 H (0.00-0.01) X 10*3/uL Immature Plt Fraction 30.1 H (1.1-6.1) % PT (10.0-12.5) sec INR (<1.2) APTT (22.0-30.0) sec Fibrinogen (200-500) mg/dL D-Dimer (<0.60) mg/L FEU Sodium (137-145) mmol/L Chloride (98-107) mmol/L Carbon Dioxide 20.3 L (22-30) mmol/L BUN (7-17) mg/dL BUN/Creatinine Ratio 23.00 H (12.00-20.00) Ratio Glucose (74-99) mg/dL Calcium 6.9 L (8.4-10.2) mg/dL Total Bilirubin 4.1 H (0.2-1.3) mg/dL AST 167 H (14-36) U/L ALT 65 H (4-34) U/L Alkaline Phosphatase 280 H (38-126) U/L Total Protein 4.4 L (6.3-8.2) g/dL Albumin 2.2 L (3.5-5.0) g/dL Albumin/Globulin Ratio 1.00 L (1.60-3.17) Ratio Ur Specific [place] (1.001-1.035) Urine Protein (Negative) Urine Blood (Negative) Urine RBC (0-5) /hpf Hyaline Casts (0-2) /lpf Urine Mucus (None) /hpf Urine Yeast (Budding) (None) /hpf 12/14/23 Range/Units 09:31 WBC (3.8-10.6) k/uL RDW (11.5-15.5) % Plt Count (150-450) k/uL Immature Gran # (0.00-0.04) X 10*3/uL Neutrophils # (1.3-7.7) k/uL Neutrophils # (Manual) (1.3-7.7) k/uL Monocytes # (0-1.0) k/uL Eosinophils # (0.04-0.35) X 10*3/uL Nucleated RBCs (0-0) /100 WBC NRBC/100 WBC Diff (0.00-0.01) X 10*3/uL Immature Plt Fraction (1.1-6.1) % PT 23.4 H (10.0-12.5) sec INR 2.4 H (<1.2) APTT 42.1 H (22.0-30.0) sec Fibrinogen 162 L (200-500) mg/dL D-Dimer (<0.60) mg/L FEU Sodium (137-145) mmol/L Chloride (98-107) mmol/L Carbon Dioxide (22-30) mmol/L BUN (7-17) mg/dL BUN/Creatinine Ratio (12.00-20.00) Ratio Glucose (74-99) mg/dL Calcium (8.4-10.2) mg/dL Total Bilirubin (0.2-1.3) mg/dL AST (14-36) U/L ALT (4-34) U/L Alkaline Phosphatase (38-126) U/L Total Protein (6.3-8.2) g/dL Albumin (3.5-5.0) g/dL Albumin/Globulin Ratio (1.60-3.17) Ratio Ur Specific [place] (1.001-1.035) Urine Protein (Negative) Urine Blood (Negative) Urine RBC (0-5) /hpf Hyaline Casts (0-2) /lpf Urine Mucus (None) /hpf Urine Yeast (Budding) (None) /hpf Assessment and Plan Plan: 1patient presented hospital with abdominal pain nausea and vomiting in this patient who did have a history of metastatic breast cancer with recent laparoscopic cholecystectomy as well as laparoscopic biopsy of the liver lesion now with abnormal CT abdominal pelvis concerning for fluid in the lower pelvis questionable related to any bleeding from the liver site versus bile duct leak and a possible component of cholangitis/peritonitis likely at least admitted, will be enteric gram-negative pathogen less likely gram-positive pathogen 2-May benefit from CT-guided aspiration of this fluid versus HIDA scan to look for biliary leak 3-we will continue patient on Zosyn however discontinue vancomycin to decrease risk of nephrotoxicity We will follow on clinical condition and cultures to further adjust medication if needed Thank you for this consultation we will follow the patient along with you Dictation was produced using [employer] dictation software. please excuse any gr ammatical, word or spelling errors. Time with Patient: Greater than 30
[2023-12-14 20:57] LABS: INR 2.3 (<1.2); Partial Thromboplastin Time 46.9 sec (22.0-30.0)
[2023-12-15 06:16] LABS: Anisocytosis Slight; Basophils # (A) 0.1 k/uL (0-0.2); Basophils % (A) 0 %; Eosinophils % (A) 0 %; HCT 44.4 % (34.0-46.0); HGB 13.8 gm/dL (11.4-16.0); Hypochromasia Marked; Lymphocytes # (A) 0.8 k/uL (1.0-4.8); Lymphocytes % (A) 4 %; MCH 29.7 pg (25.0-35.0); MCV 95.6 fL (80.0-100.0); Macrocytosis Slight; Mean Platelet Volume 8.8; Monocytes # (A) 1.2 k/uL (0-1.0); Monocytes % (A) 5 %; Neutrophils # (A) 20.3 k/uL (1.3-7.7); Neutrophils % (A) 90 %; RBC 4.65 m/uL (3.80-5.40); RDW 18.6 % (11.5-15.5); WBC 22.6 k/uL (3.8-10.6)
[2023-12-15 06:18] LABS: Platelet Count 21 k/uL (150-450)
[2023-12-15 06:23] LABS: African American GFR (CKD) >90 (>60 ml/min/1.73 sqM); Anion Gap 6 mmol/L; Blood Urea Nitrogen 23 mg/dL (7-17); Calcium 7.1 mg/dL (8.4-10.2); Carbon Dioxide 19 mmol/L (22-30); Chloride 111 mmol/L (98-107); Glucose 85 mg/dL (74-99); Non-African American GFR(CKD) >90 (>60 ml/min/1.73 sqM); Sodium 136 mmol/L (137-145)
[2023-12-15 06:31] LABS: INR 2.2 (<1.2); Partial Thromboplastin Time 38.4 sec (22.0-30.0); Prothrombin Time 21.7 sec (10.0-12.5)
[2023-12-15 06:31] LABS: NT-Pro-B-Type Natriuretic Pept 536 pg/mL
[2023-12-15] MEDS: FUROSEMIDE 10 MG/ML 2 ML VIAL IV ONE (06:54)
[2023-12-15 09:53] LABS: Albumin 2.1 g/dL (3.5-5.0); Albumin/Globulin Ratio 0.7; Bilirubin, Conjugated 0.8 mg/dL (0.0-0.3); Bilirubin,Unconjugated 2.5 mg/dL (0.0-1.1); Globulin 3.1 g/dL; Total Bilirubin 4.4 mg/dL (0.2-1.3); Total Protein 5.2 g/dL (6.3-8.2)
[2023-12-15] MEDS: HYDROcodone/APAP 5-325MG 1 EACH TAB PO PRN (09:57)
--- NOTE | 2023-12-15 13:21 | P.PN ---
Subjective Progress Note Date: 12/15/23 At today's visit patient is resting comfortably in bed. No acute events. Patient reporting persisting right-sided abdominal pain. [place] prn has been ordered. Liver biopsy resulted and confirmed of metastatic breast cancer. Coags slightly improved today, s/p vitamin K. Fibrinogen 192. Bilirubin inc reased to 4.4 today with mild elevations in AST and ALP. Will plan to start inpatient Taxol Objective - Vital Signs Vital signs: Vital Signs Temp 97.4 F L 12/15/23 07:46 Pulse 68 12/15/23 07:46 Resp 16 12/15/23 07:46 BP 109/75 12/15/23 07:46 Pulse Ox 99 12/15/23 07:46 FiO2 Intake & Output 12/14/23 12/15/23 12/15/23 18:59 06:59 18:59 Weight 136 kg 133.5 kg Other: Voiding Method Toilet Toilet # Voids 2 1 2 # Bowel Movements 1 2 - Constitutional General appearance: Present: no acute distress, obese - EENT ENT: Present: hearing grossly normal - Respiratory Details: breathing is even and unlabored - Cardiovascular Details: skin warm and dry - Gastrointestinal General gastrointestinal: Present: distended, tenderness Localized gastrointestinal: tender: RLQ - Integumentary Integumentary: Absent: cyanotic - Neurologic Neurologic: Present: CNII-XII intact - Psychiatric Psychiatric: Present: A&O x's 3 - Labs CBC & Chem 7: 12/15/23 04:57 12/15/23 05:23 Labs: Abnormal Lab Results - Last 24 Hours (Table) 12/14/23 12/15/23 12/15/23 Range/Units 20:27 04:57 04:57 WBC 22.6 H (3.8-10.6) k/uL RDW 18.6 H (11.5-15.5) % Plt Count 21 L (150-450) k/uL Neutrophils # 20.3 H (1.3-7.7) k/uL Lymphocytes # 0.8 L (1.0-4.8) k/uL Monocytes # 1.2 H (0-1.0) k/uL PT 23.0 H 21.7 H (10.0-12.5) sec INR 2.3 H 2.2 H (<1.2) APTT 46.9 H 38.4 H (22.0-30.0) sec Fibrinogen 183 L 192 L (200-500) mg/dL Sodium (137-145) mmol/L Chloride (98-107) mmol/L Carbon Dioxide (22-30) mmol/L BUN (7-17) mg/dL Calcium (8.4-10.2) mg/dL Total Bilirubin (0.2-1.3) mg/dL Conjugated Bilirubin (0.0-0.3) mg/dL Unconjugated Bilirubin (0.0-1.1) mg/dL AST (14-36) U/L ALT (4-34) U/L Alkaline Phosphatase (38-126) U/L Total Protein (6.3-8.2) g/dL Albumin (3.5-5.0) g/dL 12/15/23 12/15/23 Range/Units 05:23 05:23 WBC (3.8-10.6) k/uL RDW (11.5-15.5) % Plt Count (150-450) k/uL Neutrophils # (1.3-7.7) k/uL Lymphocytes # (1.0-4.8) k/uL Monocytes # (0-1.0) k/uL PT (10.0-12.5) sec INR (<1.2) APTT (22.0-30.0) sec Fibrinogen (200-500) mg/dL Sodium 136 L (137-145) mmol/L Chloride 111 H (98-107) mmol/L Carbon Dioxide 19 L (22-30) mmol/L BUN 23 H (7-17) mg/dL Calcium 7.1 L (8.4-10.2) mg/dL Total Bilirubin 4.4 H (0.2-1.3) mg/dL Conjugated Bilirubin 0.8 H (0.0-0.3) mg/dL Unconjugated Bilirubin 2.5 H (0.0-1.1) mg/dL AST 213 H (14-36) U/L ALT 61 H (4-34) U/L Alkaline Phosphatase 343 H (38-126) U/L Total Protein 5.2 L (6.3-8.2) g/dL Albumin 2.1 L (3.5-5.0) g/dL Microbiology - Last 24 Hours (Table) 12/13/23 19:21 Blood Culture - Preliminary Blood 12/13/23 19:05 Blood Culture - Preliminary Blood - Imaging and Cardiology US - abdomen: report reviewed Assessment and Plan (1) DIC (disseminated intravascular coagulation) Current Visit: Yes Status: Acute Priority: High Code(s): D65 - DISSEMINATED INTRAVASCULAR COAGULATION SNOMED Code(s): 26757983 (2) Nausea and vomiting Current Visit: Yes Status: Acute Priority: Medium Code(s): R11.2 - NAUSEA WITH VOMITING, UNSPECIFIED SNOMED Code(s): 65714954 (3) Post-op pain Current Visit: Yes Status: Acute Priority: Medium Code(s): G89.18 - OTHER ACUTE POSTPROCEDURAL PAIN SNOMED Code(s): 041883847 (4) Thrombocytopenia Current Visit: Yes Status: Acute Priority: High Code(s): D69.6 - THROMBOCYTOPENIA, UNSPECIFIED SNOMED Code(s): 656660082 (5) Stage III breast cancer in female Current Visit: No Status: Acute Priority: High Code(s): C50.919 - MALIGNANT NEOPLASM OF UNSP SITE OF UNSPECIFIED FEMALE BREAST SNOMED Code(s): 99769641 Plan: Abd pain, transaminitis with hepatic lesion: S/p karla on 12/08. Noted to have progressing nausea/vomiting, abd pain and weak ness over the last 2 days -Labs in clinic noted hepatocellular and cholestatic transaminitis, which was also noted on this and prior admission -During last admission, gallbladder ultrasound noted pericholecystic fluid surrounding the gallbladder along with hepatic lesions and MRI of the liver noted left hepatic lobe lesion measuring 5.1 cm. -Underwent cholecystectomy on 12/09/2023 with noted inflamed gallbladder along with nodular lesions on the liver with biopsy of one of the lesions performed -Liver biopsy positive for metastatic breast cancer -Obtained repeat US gallbladder for further evaluation to r/o obstruction, however, CT AP did not note findings of the same, and noted liver failure, hyperbilrubinemia is likely related to metastatic disease. Gallbladder ultrasound revealed postcholecystectomy changes without evidence for organizing fluid collection. DIC: -CBC was notable for platelets 17,000. Hemoglobin stable at 14.4, Coags were elevated with a fibrinfogen of 76, consistent with DIC -S/p 1 dose pooled cryoprecipitate -Repeat DIC labs today showed mild decrease in coags, fibrinogen improved at 192, with no reported episodes of acute bleeding -S/p 1 dose Vit K 5mg -Will recheck DIC labs q12hrs. Please transfuse cryoprecipitate if fibrinogen less than 100 -Please transfuse for plts less than 10,000 or if symptomatic -Hold anticoagulation and NSAIDs Stage IIIA triple negative breast cancer: -Underwent neoadjuvant chemoimmunotherapy with carboplatin/Taxol/Keytruda for 4 cycles followed by 3 cycles of AC plus Keytruda -Treatment was complicated by adrenal insufficiency secondary to Keytruda, cycle 4 of AC plus Keytruda omitted -Bilateral mastectomy performed at [facility] on 05/11/2023 noted pathologic complete response -CT chest revealed no acute findings -Bone scan revealed uptake in the bilateral ribs, right hemisacrum, and left ilium adjacent to the SI joint and left femoral supracondylar region medially concerning for metastatic disease -Liver biopsy positive for metastatic breast cancer. Results were discussed with patient. Discussed that due to progressing acute liver failure, we recommend starting single agent Taxol inpatient. Risks vs benefits discussed, with recent cholecystectomy on 12/08. She was agreeable to proceed with treatment. -PICC line and chemo orders have been sent. Transfer order to [address] [place] [address] Doctor attests: I performed a history and physical examination of this patient, developed impression and plan of care. Discussed with dictator. I agree with dictators note, documented as a scribe.
--- NOTE | 2023-12-15 14:09 | P.PN ---
Subjective Progress Note Date: 12/15/23 CHIEF COMPLAINT: Abdominal pain HISTORY OF PRESENT ILLNESS: Patient continues to complain of abdominal pain. She has tenderness across upper abdomen. She has been having nausea and vomiting. Patient is afebrile. WBC is down from 26-22.6 hemoglobin 13.8 platelets 21 INR is 2.2 total bilirubin 4.4 AST 213 ALT 61 alk phos 343 Patient seen and examined with Dr. Vuong PHYSICAL EXAM: VITAL SIGNS: Reviewed. GENERAL: no acute distress. HEENT: Sclera icterus present ABDOMEN: Soft. Nondistended. Tender with palpation across upper abdomen. Right-sided incision with blisters and serous drainage from blister. Some bruising noted around the right side abdomen near incision NEUROLOGIC: Alert and oriented. Cranial nerves II through XII grossly intact. Skin: Jaundiced ASSESSMENT: 1. Intractable nausea and vomiting and abdominal pain 2. Elevated LFTs. LFTs were elevated prior to surgery. Elevated liver enzymes and elevated bilirubin likely related to patient's liver failure and liver l esions 3. Coagulopathy from liver failure 4. Fluid collection in the pelvis on CT likely old blood 5. Recent laparoscopic cholecystectomy on December 09, 2023 with liver lesion biopsy. Pathology results pending 6. History of breast cancer status post bilateral mastectomy, chemo and radiation PLAN: -No surgical intervention planned -Continue supportive care -Patient followed by oncology service -Continue antibiotics -Continue full liquids Physician Change Coordinator note has been reviewed by physician. Signing provider agrees with the documented findings, assessment, and plan of care. Objective - Vital Signs Vital signs: Vital Signs Temp 97.4 F L 12/15/23 07:46 Pulse 68 12/15/23 07:46 Resp 16 12/15/23 07:46 BP 109/75 12/15/23 07:46 Pulse Ox 99 12/15/23 07:46 FiO2 Intake & Output 12/14/23 12/15/23 12/15/23 18:59 06:59 18:59 Weight 136 kg 133.5 kg Other: Voiding Method Toilet Toilet # Voids 2 1 2 # Bowel Movements 1 2 - Labs CBC & Chem 7: 12/15/23 04:57 12/15/23 05:23 Labs: Abnormal Lab Results - Last 24 Hours (Table) 12/14/23 12/15/23 12/15/23 Range/Units 20:27 04:57 04:57 WBC 22.6 H (3.8-10.6) k/uL RDW 18.6 H (11.5-15.5) % Plt Count 21 L (150-450) k/uL Neutrophils # 20.3 H (1.3-7.7) k/uL Lymphocytes # 0.8 L (1.0-4.8) k/uL Monocytes # 1.2 H (0-1.0) k/uL PT 23.0 H 21.7 H (10.0-12.5) sec INR 2.3 H 2.2 H (<1.2) APTT 46.9 H 38.4 H (22.0-30.0) sec Fibrinogen 183 L 192 L (200-500) mg/dL Sodium (137-145) mmol/L Chloride (98-107) mmol/L Carbon Dioxide (22-30) mmol/L BUN (7-17) mg/dL Calcium (8.4-10.2) mg/dL Total Bilirubin (0.2-1.3) mg/dL Conjugated Bilirubin (0.0-0.3) mg/dL Unconjugated Bilirubin (0.0-1.1) mg/dL AST (14-36) U/L ALT (4-34) U/L Alkaline Phosphatase (38-126) U/L Total Protein (6.3-8.2) g/dL Albumin (3.5-5.0) g/dL 12/15/23 12/15/23 Range/Units 05:23 05:23 WBC (3.8-10.6) k/uL RDW (11.5-15.5) % Plt Count (150-450) k/uL Neutrophils # (1.3-7.7) k/uL Lymphocytes # (1.0-4.8) k/uL Monocytes # (0-1.0) k/uL PT (10.0-12.5) sec INR (<1.2) APTT (22.0-30.0) sec Fibrinogen (200-500) mg/dL Sodium 136 L (137-145) mmol/L Chloride 111 H (98-107) mmol/L Carbon Dioxide 19 L (22-30) mmol/L BUN 23 H (7-17) mg/dL Calcium 7.1 L (8.4-10.2) mg/dL Total Bilirubin 4.4 H (0.2-1.3) mg/dL Conjugated Bilirubin 0.8 H (0.0-0.3) mg/dL Unconjugated Bilirubin 2.5 H (0.0-1.1) mg/dL AST 213 H (14-36) U/L ALT 61 H (4-34) U/L Alkaline Phosphatase 343 H (38-126) U/L Total Protein 5.2 L (6.3-8.2) g/dL Albumin 2.1 L (3.5-5.0) g/dL Microbiology - Last 24 Hours (Table) 12/13/23 19:21 Blood Culture - Preliminary Blood 12/13/23 19:05 Blood Culture - Preliminary Blood
[2023-12-15] MEDS: LIDOCAINE 2% (PF) 20 MG/ML 5 ML VIAL SQ ONE (14:21)
--- NOTE | 2023-12-15 14:41 | P.OP ---
Date of Procedure: 12/15/23 Description of Procedure: Date of Procedure: Preoperative Diagnosis: Need for long-term IV access Metastatic breast cancer. Postoperative Diagnosis: Same. Procedure(s) Performed: Ultrasound-guided cannulation left cephalic vein. Insertion of peripherally inserted central catheter under fluoroscopic guidance. Anesthesia: local (1% Xylocaine.) Surgeon: Vicky Estimated Blood Loss (ml): 5 IV fluids (ml): 0 Urine output (ml): 0 Pathology: none sent Condition: stable Disposition: no change Indications for Procedure: Patient is a 43-year-old female with metastatic breast cancer patient will require chemotherapy as an outpatient patient is offered a PICC line to allow for intravenous administration Description of Procedure: Patient was brought to the special procedure suite. The left upper extremity sterilely prepped and draped in usual manner. Ultrasound was utilized to identify the cephalic vein which was normally compressible free of visible thrombus. Permenant image was stored. 1% Xylocaine was utilized for local anesthesia tissues overlying the vein. Through this anesthetized area and with the aid of ultrasound a micropuncture needle was utilized to cannulate the vein. Once cannulated, Softip guidewire was advanced into the vein. The needle was withdrawn and a micropuncture sheath and dilator advanced over the guidewire. The guidewire was withdrawn and exchanged for the PICC guidewire and measured 43 cm to the cavoatrial junction. The catheter was cut to size and advanced into the cavoatrial junction without resistance. The sheath was peeled away. Blood was easily withdrawn through the catheter and the catheter was then flushed with heparinized saline solution and secured to the skin. Patient tolerated procedure well and was returned to their room in satisfactory and stable condition.
--- NOTE | 2023-12-15 15:16 | IR ---
PICC LINE PLACEMENT: HISTORY: Infection requiring long-term antibiotic therapy PROCEDURE: Ultrasound and fluoroscopic guidance of PICC line placement. COMPLICATIONS: None ANESTHESIA: 1. 1% Lidocaine locally. FINDINGS/TECHNIQUE: The procedure was explained to the patient. The risks, complications, benefits and alternatives were discussed and any questions were answered. Informed consent was obtained. The patient was placed supine on the fluoroscopic table and prepped and draped in the usual sterile fash ion. Utilizing a 21 gauge needle and sonographic and fluoroscopic guidance, access in the left basi lic vein was achieved and there is placement of a 0.018 guidewire. The vein is patent. A 4-F sheath was placed over the guidewire. The guidewire and dilator were removed and a 4-F. PICC line was plac ed through the sheath with the tip at the level of the SVC. The sheath was removed, the catheter was flushed and sutured into position. The patient was stable throughout the procedure and remained sta ble upon discharge from the Department of Radiology. The vein puncture was patent under ultrasound. A bates scale image was obtained to document patency of the vein punctured. All elements of the maximal barrier technique were utilized. FLUOROSCOPY TIME: DAP 0.056Gy cm2 IMPRESSION: Successful PICC line placement under ultrasound and fluoroscopic guidance.
[2023-12-15] MEDS: ONDANSETRON 4 MG/2 ML VIAL IVP PRN (17:36)
[2023-12-15 18:01] LABS: INR 2.1 (<1.2); Partial Thromboplastin Time 39.5 sec (22.0-30.0); Prothrombin Time 21.1 sec (10.0-12.5)
--- NOTE | 2023-12-16 06:05 | P.PN ---
Subjective Progress Note Date: 12/15/23 This is a pleasant 43-year-old female who presented to the emergency department with increased abdominal pain, postop nausea and vomiting with decreased oral intake and dehydration. Patient recently was hospitalized underwent liver biopsy along with acute cholecystectomy with general surgery Dr. Vuong last week. Patient reports she continued to have abdominal pain and difficulty tolerating oral intake and recently started developing nausea and vomiting again. Patient reports severe abdominal pain with no improvement. Patient reports having minimal bowel movements although is passing gas and is urinating with no difficulties. Labs reviewed on admission and had a D-dimer done which was significantly elevated underwent CTA with no suggestion of PE. Other labs reveal an elevated white count of 20.8, hemoglobin stable at 14.4, platelets significantly low at 17, INR 2.0, D-dimer above 34, sodium 135, potassium 3.7, creatinine 1.01, lactic acid was 2.0, total bili is 5.9 with an AST of 229 and ALT is 78 and alk phos is 365, lipase was 34. Urinalysis was negative and influenza/COVID/RSV are all negative as well. Patient was admitted for dehydration with general surgery as well as oncology on consult. Patient did undergo a liver biopsy last admission during the cholecystectomy which remains pending. Patient having an increasing white count this morning of 26 with no fevers noted and empiric antibiotics started and will consult infectious disease and appreciate input and recommendations. EKG shows sinus rhythm, abdominal pelvis CT shows postcholecystectomy changes with high density fluid in the pelvis around the uterus posteriorly representing possible blood products with no evidence of pneumoperitoneum or organizing peripheral enhancing fluid collection to suggest abscess, persistent liver lesions as noted on MRI from 422 concerning of metastatic disease until proven otherwise and a trace bilateral pleural effusions. Patient is on room air and denies significant shortness of breath although does feel exerted with minimal exertion. Will add incentive spirometer. 12/15/2023 Patient is seen in follow-up this morning lethargic although arousable. Patient is scheduled to undergo a PICC line as oncology is following and discussing initiating Taxol chemotherapy while inpatient. Repeat ultrasound showing post cholecystectomy changes. Per oncology, liver biopsy that was performed last week is positive for metastatic breast cancer. Patient continues to report some nausea and vomiting with decreased oral intake and continued abdominal pain. Patient is having some generalized edema noted and was given a dose of Lasix. Patient's labs consistent with DIC and is status post cryoprecipitate. Oncology following closely. White count is trending down and patient is maintained on antibiotics. Infectious diseases following. Overall prognosis remains guarded. Review of systems: Constitutional: reports of fatigue, no fever, or chills Cardiovascular: No reports of chest pain or palpitations Respiratory: reports of occasional shortness of breath GI: reports of nausea, no vomiting, or diarrhea : No reports of dysuria or retention Neurovascular: reports of generalized weakness All medications have been reviewed PHYSICAL EXAMINATION: GENERAL: The patient is alert and oriented x3. Well developed, well nourished. Morbidly obese HEENT: Pupils are round and equally reacting to light. EOMI. No scleral icterus. No conjunctival pallor. Normocephalic, atraumatic. No pharyngeal erythema. No thyromegaly. CARDIOVASCULAR: S1 and S2 muffled PULMONARY: Chest is clear to auscultation, no wheezing or crackles. ABDOMEN: Soft, tender, nondistended, normoactive bowel sounds. No palpable organomegaly. Surgical sites are dry and intact MUSCULOSKELETAL: No joint swelling or deformity. EXTREMITIES: No cyanosis, clubbing, or pedal edema. NEUROLOGICAL: Gross neurological examination did not reveal any focal deficits. Diffusely weak SKIN: No rashes. Assessment: Nausea vomiting, decreased oral intake with dehydration and continued abdominal pain, multifactorial, most likely secondary to metastatic disease Status post laparoscopic cholecystectomy last week Significant leukocytosis, multifactorial possibly reactive, trending down Status post liver biopsy which is positive for metastatic breast cancer DIC with coagulopathy, secondary to liver lesions History of known breast cancer status post bilateral mastectomy in [place] in the summer 2022 with radiation treatment completed in August Chemotherapy induced adrenal insufficiency Morbid obesity with a BMI of 40.7 GI prophylaxis DVT prophylaxis Full code Plan: Patient was admitted with continued abdominal pain with nausea and vomiting with general surgery following as patient is recent laparoscopic cholecystectomy on 12/09/2023. No plans for surgical intervention Patient did have a biopsy of the liver obtained at that time which the official report is pending, but oncology received final report which was positive for metastatic breast cancer Oncology following as patient is history of breast cancer with mastectomy with noted liver lesions that are metastatic. Recent bone scan on last admission also with increased uptake noted in multiple ribs. PICC line ordered as patient will be starting inpatient chemotherapy with Taxol White count trending down at 22 today and antibiotics continued with infectious disease following Undergoing DIC monitoring, labs are consistent with DIC and is status post cryoprecipitate. Repeat labs ordered every 12 hours Home medications reviewed and resumed as appropriate Encourage incentive spirometer use at least 10 times every hour while awake Will continue with pain management and antinausea medications Overall prognosis is extremely guarded at this time The impression and plan of care has been dictated by Vanna Stevens, Nurse Practitioner as directed. Dr. Leeanne MD I have performed a history and examination and MDM of this patient, discussed the same with the dictator, and agree with the dictator's assessment and plan as written ,documented as a scribe. Based on total visit time, I have performed more than 50% of the visit. Objective - Vital Signs Vital signs: Vital Signs Temp 97.8 F 12/16/23 01:39 Pulse 65 12/16/23 01:39 Resp 16 12/16/23 01:39 BP 111/70 12/16/23 01:39 Pulse Ox 93 L 12/16/23 01:39 FiO2 Intake & Output 12/15/23 12/15/23 12/16/23 06:59 18:59 06:59 Intake Total 200 600 Balance 200 600 Weight 133.5 kg 136 kg Intake: Intake, IV Titration 100 Amount Piperacillin-Tazobactam 3 100 .375 gm In Sodium Chloride 0.9% 100 ml @ 25 mls/hr IVPB Q8H [facility] Rx#: [id number] Oral 200 500 Other: Voiding Method Toilet Toilet Toilet # Voids 1 2 2 # Bowel Movements 2 - Labs CBC & Chem 7: 12/15/23 04:57 12/15/23 05:23 Labs: Abnormal Lab Results - Last 24 Hours (Table) 12/15/23 12/15/23 12/15/23 Range/Units 04:57 04:57 05:23 WBC 22.6 H (3.8-10.6) k/uL RDW 18.6 H (11.5-15.5) % Plt Count 21 L (150-450) k/uL Neutrophils # 20.3 H (1.3-7.7) k/uL Lymphocytes # 0.8 L (1.0-4.8) k/uL Monocytes # 1.2 H (0-1.0) k/uL PT 21.7 H (10.0-12.5) sec INR 2.2 H (<1.2) APTT 38.4 H (22.0-30.0) sec Fibrinogen 192 L (200-500) mg/dL Sodium 136 L (137-145) mmol/L Chloride 111 H (98-107) mmol/L Carbon Dioxide 19 L (22-30) mmol/L BUN 23 H (7-17) mg/dL Calcium 7.1 L (8.4-10.2) mg/dL Total Bilirubin (0.2-1.3) mg/dL Conjugated Bilirubin (0.0-0.3) mg/dL Unconjugated Bilirubin (0.0-1.1) mg/dL AST (14-36) U/L ALT (4-34) U/L Alkaline Phosphatase (38-126) U/L Total Protein (6.3-8.2) g/dL Albumin (3.5-5.0) g/dL 12/15/23 12/15/23 Range/Units 05:23 17:14 WBC (3.8-10.6) k/uL RDW (11.5-15.5) % Plt Count (150-450) k/uL Neutrophils # (1.3-7.7) k/uL Lymphocytes # (1.0-4.8) k/uL Monocytes # (0-1.0) k/uL PT 21.1 H (10.0-12.5) sec INR 2.1 H (<1.2) APTT 39.5 H (22.0-30.0) sec Fibrinogen 183 L (200-500) mg/dL Sodium (137-145) mmol/L Chloride (98-107) mmol/L Carbon Dioxide (22-30) mmol/L BUN (7-17) mg/dL Calcium (8.4-10.2) mg/dL Total Bilirubin 4.4 H (0.2-1.3) mg/dL Conjugated Bilirubin 0.8 H (0.0-0.3) mg/dL Unconjugated Bilirubin 2.5 H (0.0-1.1) mg/dL AST 213 H (14-36) U/L ALT 61 H (4-34) U/L Alkaline Phosphatase 343 H (38-126) U/L Total Protein 5.2 L (6.3-8.2) g/dL Albumin 2.1 L (3.5-5.0) g/dL Microbiology - Last 24 Hours (Table) 12/13/23 19:21 Blood Culture - Preliminary Blood 12/13/23 19:05 Blood Culture - Preliminary Blood
[2023-12-16 07:30] LABS: INR 1.8 (<1.2); Partial Thromboplastin Time 42.4 sec (22.0-30.0); Prothrombin Time 18.1 sec (10.0-12.5)
[2023-12-16 07:59] LABS: Anisocytosis Slight; Basophils # (A) 0.1 k/uL (0-0.2); Basophils % (A) 0 %; Eosinophils % (A) 0 %; HCT 41.2 % (34.0-46.0); HGB 13.1 gm/dL (11.4-16.0); Hypochromasia Slight; Lymphocytes # (A) 1.4 k/uL (1.0-4.8); Lymphocytes % (A) 6 %; MCH 29.8 pg (25.0-35.0); MCHC 31.9 g/dL (31.0-37.0); MCV 93.4 fL (80.0-100.0); Macrocytosis Slight; Mean Platelet Volume 13.8; Monocytes # (A) 1.7 k/uL (0-1.0); Monocytes % (A) 7 %; Neutrophils # (A) 20.2 k/uL (1.3-7.7); Neutrophils % (A) 85 %; RBC 4.41 m/uL (3.80-5.40); RDW 19.8 % (11.5-15.5); WBC 23.8 k/uL (3.8-10.6)
[2023-12-16 08:00] LABS: Platelet Count 36 k/uL (150-450)
[2023-12-16 08:16] LABS: Large Platelets Present; Poikilocytosis (M) Present
[2023-12-16 08:22] LABS: ALT 46 U/L (4-34); AST 196 U/L (14-36); African American GFR (CKD) >90 (>60 ml/min/1.73 sqM); Albumin 1.8 g/dL (3.5-5.0); Albumin/Globulin Ratio 0.6; Alkaline Phosphatase 346 U/L (38-126); Anion Gap 3 mmol/L; Blood Urea Nitrogen 29 mg/dL (7-17); Calcium 6.9 mg/dL (8.4-10.2); Carbon Dioxide 21 mmol/L (22-30); Chloride 112 mmol/L (98-107); Glucose 90 mg/dL (74-99); Non-African American GFR(CKD) 84 (>60 ml/min/1.73 sqM); Sodium 136 mmol/L (137-145); Total Bilirubin 3.9 mg/dL (0.2-1.3); Total Protein 4.8 g/dL (6.3-8.2)
[2023-12-16 08:32] LABS: RBC Fragments Present
[2023-12-16 08:33] LABS: Howell-Jolly Bodies Present
[2023-12-16 08:41] LABS: Potassium 4.6 mmol/L (3.5-5.1)
[2023-12-16] MEDS: PHYTONADIONE 5 MG in SODIUM CHLORIDE 0.9% 50 ML IVPB STA (12:48)
--- NOTE | 2023-12-16 12:59 | P.PN ---
Subjective Progress Note Date: 12/16/23 CHIEF COMPLAINT: Abdominal pain HISTORY OF PRESENT ILLNESS: Patient continues to complain of right upper quadrant abdominal pain and nausea. Appetite is decreased. Patient had PICC line placed. 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 Oncology service following closely and planning to start chemotherapy. Afebrile. WBC 23.8 Hgb 13.1 INR 1.8 LFTs remain elevated but slightly decreased PHYSICAL EXAM: VITAL SIGNS: Reviewed. GENERAL: no acute distress. HEENT: Sclera icterus present ABDOMEN: Soft. Nondistended. Tender with palpation right upper quadrant. Right-sided incision with blisters and serous drainage from blister. Blister is slightly larger. Some bruising noted around the right side abdomen near incision NEUROLOGIC: Alert and oriented. Cranial nerves II through XII grossly intact. Skin: Jaundiced ASSESSMENT: 1. Intractable nausea and vomiting and abdominal pain 2. Elevated LFTs. LFTs were elevated prior to surgery. Elevated liver enzymes and elevated bilirubin likely related to patient's liver failure and liver lesions 3. DIC followed by oncology service 4. Fluid collection in the pelvis on CT likely old blood 5. Recent laparoscopic cholecystectomy on December 09, 2023 with liver lesion biopsy. Pathology results pending 6. History of breast cancer status post bilateral mastectomy, chemo and radiation PLAN: -No surgical intervention planned -Continue supportive care -Patient followed by oncology service -Continue antibiotics -Continue full liquids. Add Ensure for protein supplement Physician Cancer Registry Manager note has been reviewed by physician. Signing provider agrees with the documented findings, assessment, and plan of care. Objective - Vital Signs Vital signs: Vital Signs Temp 97.9 F 12/16/23 07:34 Pulse 70 12/16/23 07:34 Resp 16 12/16/23 07:34 BP 105/65 12/16/23 07:34 Pulse Ox 93 L 12/16/23 07:34 FiO2 Intake & Output 12/15/23 12/16/23 12/16/23 18:59 06:59 18:59 Intake Total 200 600 Balance 200 600 Weight 136 kg Intake: Intake, IV Titration 100 Amount Piperacillin-Tazobactam 3 100 .375 gm In Sodium Chloride 0.9% 100 ml @ 25 mls/hr IVPB Q8H [facility] Rx#: [id number] Oral 200 500 Other: Voiding Method Toilet Toilet # Voids 2 2 # Bowel Movements 2 - Labs CBC & Chem 7: 12/16/23 06:44 12/16/23 06:44 Labs: Abnormal Lab Results - Last 24 Hours (Table) 12/15/23 12/16/23 12/16/23 Range/Units 17:14 06:44 06:44 WBC 23.8 H (3.8-10.6) k/uL RDW 19.8 H (11.5-15.5) % Plt Count 36 L D (150-450) k/uL Neutrophils # 20.2 H (1.3-7.7) k/uL Monocytes # 1.7 H (0-1.0) k/uL PT 21.1 H 18.1 H (10.0-12.5) sec INR 2.1 H 1.8 H (<1.2) APTT 39.5 H 42.4 H (22.0-30.0) sec Fibrinogen 183 L 198 L (200-500) mg/dL Sodium (137-145) mmol/L Chloride (98-107) mmol/L Carbon Dioxide (22-30) mmol/L BUN (7-17) mg/dL Calcium (8.4-10.2) mg/dL Total Bilirubin (0.2-1.3) mg/dL AST (14-36) U/L ALT (4-34) U/L Alkaline Phosphatase (38-126) U/L Total Protein (6.3-8.2) g/dL Albumin (3.5-5.0) g/dL 12/16/23 Range/Units 06:44 WBC (3.8-10.6) k/uL RDW (11.5-15.5) % Plt Count (150-450) k/uL Neutrophils # (1.3-7.7) k/uL Monocytes # (0-1.0) k/uL PT (10.0-12.5) sec INR (<1.2) APTT (22.0-30.0) sec Fibrinogen (200-500) mg/dL Sodium 136 L (137-145) mmol/L Chloride 112 H (98-107) mmol/L Carbon Dioxide 21 L (22-30) mmol/L BUN 29 H (7-17) mg/dL Calcium 6.9 L (8.4-10.2) mg/dL Total Bilirubin 3.9 H (0.2-1.3) mg/dL AST 196 H (14-36) U/L ALT 46 H (4-34) U/L Alkaline Phosphatase 346 H (38-126) U/L Total Protein 4.8 L (6.3-8.2) g/dL Albumin 1.8 L (3.5-5.0) g/dL Microbiology - Last 24 Hours (Table) 12/13/23 19:21 Blood Culture - Preliminary Blood 12/13/23 19:05 Blood Culture - Preliminary Blood
[2023-12-16] MEDS ORDERED: DEXAMETHASONE SOD PHOS (MDV) 20 MG in DEXTROSE 5% IN WATER 50 ML IVPB ONE (13:00)
[2023-12-16] MEDS ORDERED: WATER IVPB ONE (13:00)
[2023-12-16] MEDS ORDERED: DEXTROSE 5% IVPB ONE (13:00)
[2023-12-16] MEDS ORDERED: DEXAMETHASONE SOD PHOS IVPB ONE (13:00)
--- NOTE | 2023-12-16 13:43 | P.PN ---
Subjective Progress Note Date: 12/15/23 Principal diagnosis: Reason for follow-up is a leukocytosis and the question of infection Patient is a 43-year-old female with a past medical history significant for breast cancer status post bilateral mastectomy April 2023 followed by chemotherapy patient was recently admitted to this facility did have a right upper quadrant pain elevated white count and concern for cholecystitis in this patient who is status post laparoscopic cholecystectomy along with laparoscopic biopsy of the liver lesion which apparently are suggestive of metastatic breast cancer. Patient now presenting back to the hospital concerning for abdominal pain nausea and vomiting and weakness, patient did not have any fever did have elevated white count CT abdominal pelvis with polyp cholecystectomy changes and fluid in the pelvic around the uterus no evidence of pneumoperitoneum. On today's evaluation that is 12/15/2023, the patient continues to be afebrile, the patient is on room air and breathing comfortably, the Pt denies having any chest pain or cough, the patient denies having any abdominal pain still complaining of some nausea and did have any vomiting last night denies have any diarrhea patient seen to be slightly emotional and she has a diagnosis of metastatic cancer Patient white count is 22.6, creatinine 0.8 liver enzymes elevated, blood culture pending so far Objective - Vital Signs Vital signs: Vital Signs Temp 97.4 F L 12/15/23 07:46 Pulse 68 12/15/23 07:46 Resp 16 12/15/23 07:46 BP 109/75 12/15/23 07:46 Pulse Ox 99 12/15/23 07:46 FiO2 Intake & Output 12/14/23 12/15/23 12/15/23 18:59 06:59 18:59 Weight 136 kg 133.5 kg Other: Voiding Method Toilet Toilet # Voids 2 1 2 # Bowel Movements 1 2 - Exam GENERAL DESCRIPTION: Middle-aged female lying in bed in no distress RESPIRATORY SYSTEM: Unlabored breathing , decreased breath sounds at bases HEART: S1 S2 regular rate and rhythm , ABDOMEN: Soft , no tenderness EXTREMITIES: No edema feet - Labs CBC & Chem 7: 12/16/23 06:44 12/16/23 06:44 Labs: Abnormal Lab Results - Last 24 Hours (Table) 12/14/23 12/15/23 12/15/23 Range/Units 20:27 04:57 04:57 WBC 22.6 H (3.8-10.6) k/uL RDW 18.6 H (11.5-15.5) % Plt Count 21 L (150-450) k/uL Neutrophils # 20.3 H (1.3-7.7) k/uL Lymphocytes # 0.8 L (1.0-4.8) k/uL Monocytes # 1.2 H (0-1.0) k/uL PT 23.0 H 21.7 H (10.0-12.5) sec INR 2.3 H 2.2 H (<1.2) APTT 46.9 H 38.4 H (22.0-30.0) sec Fibrinogen 183 L 192 L (200-500) mg/dL Sodium (137-145) mmol/L Chloride (98-107) mmol/L Carbon Dioxide (22-30) mmol/L BUN (7-17) mg/dL Calcium (8.4-10.2) mg/dL Total Bilirubin (0.2-1.3) mg/dL Conjugated Bilirubin (0.0-0.3) mg/dL Unconjugated Bilirubin (0.0-1.1) mg/dL AST (14-36) U/L ALT (4-34) U/L Alkaline Phosphatase (38-126) U/L Total Protein (6.3-8.2) g/dL Albumin (3.5-5.0) g/dL 12/15/23 12/15/23 Range/Units 05:23 05:23 WBC (3.8-10.6) k/uL RDW (11.5-15.5) % Plt Count (150-450) k/uL Neutrophils # (1.3-7.7) k/uL Lymphocytes # (1.0-4.8) k/uL Monocytes # (0-1.0) k/uL PT (10.0-12.5) sec INR (<1.2) APTT (22.0-30.0) sec Fibrinogen (200-500) mg/dL Sodium 136 L (137-145) mmol/L Chloride 111 H (98-107) mmol/L Carbon Dioxide 19 L (22-30) mmol/L BUN 23 H (7-17) mg/dL Calcium 7.1 L (8.4-10.2) mg/dL Total Bilirubin 4.4 H (0.2-1.3) mg/dL Conjugated Bilirubin 0.8 H (0.0-0.3) mg/dL Unconjugated Bilirubin 2.5 H (0.0-1.1) mg/dL AST 213 H (14-36) U/L ALT 61 H (4-34) U/L Alkaline Phosphatase 343 H (38-126) U/L Total Protein 5.2 L (6.3-8.2) g/dL Albumin 2.1 L (3.5-5.0) g/dL Microbiology - Last 24 Hours (Table) 12/13/23 19:21 Blood Culture - Preliminary Blood 12/13/23 19:05 Blood Culture - Preliminary Blood Assessment and Plan (1) Leukocytosis Current Visit: No Status: Acute Code(s): D72.829 - ELEVATED WHITE BLOOD CELL COUNT, UNSPECIFIED SNOMED Code(s): 133515922 Plan: 1patient presented hospital with abdominal pain nausea and vomiting in this patient who did have a history of metastatic breast cancer with recent lap aroscopic cholecystectomy as well as laparoscopic biopsy of the liver lesion now with abnormal CT abdominal pelvis concerning for fluid in the lower pelvis, patient case has been discussed in detail with the general surgery no clinically suspicious for biliary leak or need for HIDA scan also discussed with the [employer] for hematology oncology as their assessment is presentation is mostly of metastatic breast cancer and less clinically suspicious for infection and wants to proceed with the chemotherapy 2patient is currently on Zosyn however if the blood culture negative we will plan on discontinuation of antibiotics and oncology can proceed with chemotherapy Dictation was produced using [employer]mov[employer] dictation software. please excuse any grammatical, word or spelling errors. Time with Patient: Greater than 30
--- NOTE | 2023-12-16 13:45 | P.PN ---
Subjective Progress Note Date: 12/16/23 Principal diagnosis: Reason for follow-up is a leukocytosis and the question of infection Patient is a 43-year-old female with a past medical history significant for breast cancer status post bilateral mastectomy April 2023 followed by chemotherapy patient was recently admitted to this facility did have a right upper quadrant pain elevated white count and concern for cholecystitis in this patient who is status post laparoscopic cholecystectomy along with laparoscopic biopsy of the liver lesion which apparently are suggestive of metastatic breast cancer. Patient now presenting back to the hospital concerning for abdominal pain nausea and vomiting and weakness, patient did not have any fever did have elevated white count CT abdominal pelvis with polyp cholecystectomy changes and fluid in the pelvic around the uterus no evidence of pneumoperitoneum. On today's evaluation that is 12/16/2023, Patient is afebrile patient is currently on room air and denies having any shortness of breath, the patient denies any chest pain or cough, the patient did have some nausea but no vomiting no abdominal pain no diarrhea feeling slightly better today. Patient white count is slightly up to 23.8 creatinine 0.86 blood culture has been negative Objective - Vital Signs Vital signs: Vital Signs Temp 97.9 F 12/16/23 07:34 Pulse 70 12/16/23 07:34 Resp 16 12/16/23 07:34 BP 105/65 12/16/23 07:34 Pulse Ox 93 L 12/16/23 07:34 FiO2 Intake & Output 12/15/23 12/16/23 12/16/23 18:59 06:59 18:59 Intake Total 200 600 Balance 200 600 Weight 136 kg Intake: Intake, IV Titration 100 Amount Piperacillin-Tazobactam 3 100 .375 gm In Sodium Chloride 0.9% 100 ml @ 25 mls/hr IVPB Q8H [facility] Rx#: [id number] Oral 200 500 Other: Voiding Method Toilet Toilet Toilet # Voids 2 2 # Bowel Movements 2 - Exam GENERAL DESCRIPTION: Middle-aged female lying in bed in no distress RESPIRATORY SYSTEM: Unlabored breathing , decreased breath sounds at bases HEART: S1 S2 regular rate and rhythm , ABDOMEN: Soft , no tenderness EXTREMITIES: No edema feet - Labs CBC & Chem 7: 12/16/23 06:44 12/16/23 06:44 Labs: Abnormal Lab Results - Last 24 Hours (Table) 05/09/0812/16/23 12/16/23 Range/Units 17:14 06:44 06:44 WBC 23.8 H (3.8-10.6) k/uL RDW 19.8 H (11.5-15.5) % Plt Count 36 L D (150-450) k/uL Neutrophils # 20.2 H (1.3-7.7) k/uL Monocytes # 1.7 H (0-1.0) k/uL PT 21.1 H 18.1 H (10.0-12.5) sec INR 2.1 H 1.8 H (<1.2) APTT 39.5 H 42.4 H (22.0-30.0) sec Fibrinogen 183 L 198 L (200-500) mg/dL Sodium (137-145) mmol/L Chloride (98-107) mmol/L Carbon Dioxide (22-30) mmol/L BUN (7-17) mg/dL Calcium (8.4-10.2) mg/dL Total Bilirubin (0.2-1.3) mg/dL AST (14-36) U/L ALT (4-34) U/L Alkaline Phosphatase (38-126) U/L Total Protein (6.3-8.2) g/dL Albumin (3.5-5.0) g/dL 12/16/23 Range/Units 06:44 WBC (3.8-10.6) k/uL RDW (11.5-15.5) % Plt Count (150-450) k/uL Neutrophils # (1.3-7.7) k/uL Monocytes # (0-1.0) k/uL PT (10.0-12.5) sec INR (<1.2) APTT (22.0-30.0) sec Fibrinogen (200-500) mg/dL Sodium 136 L (137-145) mmol/L Chloride 112 H (98-107) mmol/L Carbon Dioxide 21 L (22-30) mmol/L BUN 29 H (7-17) mg/dL Calcium 6.9 L (8.4-10.2) mg/dL Total Bilirubin 3.9 H (0.2-1.3) mg/dL AST 196 H (14-36) U/L ALT 46 H (4-34) U/L Alkaline Phosphatase 346 H (38-126) U/L Total Protein 4.8 L (6.3-8.2) g/dL Albumin 1.8 L (3.5-5.0) g/dL Microbiology - Last 24 Hours (Table) 12/13/23 19:21 Blood Culture - Preliminary Blood 12/13/23 19:05 Blood Culture - Preliminary Blood Assessment and Plan (1) Leukocytosis Current Visit: No Status: Acute Code(s): D72.829 - ELEVATED WHITE BLOOD CELL COUNT, UNSPECIFIED SNOMED Code(s): 276960673 Plan: 1patient presented hospital with abdominal pain nausea and vomiting in this patient who did have a history of metastatic breast cancer with recent laparoscopic cholecystectomy as well as laparoscopic biopsy of the liver lesion now with abnormal CT abdominal pelvis concerning for fluid in the lower pelvis, patient case has been discussed in detail with the general surgery no clinically suspicious for biliary leak or need for HIDA scan also discussed with Dr. Caballero from hematology oncology this morning and is assessment is presentation is mostly of metastatic breast cancer and less likely infection keeping in mind the patient did not have any fever during this admission the patient does not look toxic blood culture has been negative and white count is slightly worse today despite being on Zosyn more likely we are dealing with infection at this point this was explained to the patient in layman terms who wanted to proceed with the chemotherapy 2I will go ahead and discontinue the Zosyn and will monitor the patient closely off antibiotic therapy Dictation was produced using [employer] dictation software. please excuse any grammatical, word or spelling errors. Time with Patient: Less than 30
[2023-12-16] MEDS: diphenhydrAMINE 50 MG/ML 1 ML VIAL IVP ONE (14:12)
[2023-12-16] MEDS: FAMOTIDINE 20 MG/2 ML VIAL IVP ONE (14:12)
[2023-12-16] MEDS: DEXAMETHASONE SOD PHOSPHATE 10 MG/ML 1 ML VIAL IV ONE (14:13)
[2023-12-16] MEDS: PACLITAXEL IV ONE (14:39)
[2023-12-16] MEDS: SODIUM CHLORIDE 0.9% IV ONE (14:39)
--- NOTE | 2023-12-16 14:46 | P.PN ---
Subjective Progress Note Date: 12/16/23 No acute events, at today's visit patient is resting comfortably in bed. Patient reporting persisting diffuse abdominal pain. [place] prn has been ordered and is helping control pain. Also expericning nausea with some improvement with zofran. Will add compazine for additional anti-emetic support. Coags stable. Fibrinogen 198. Bilirubin 3.9, with decrease in AST and ALT. Scheduled to start inpatient Taxol today Objective - Vital Signs Vital signs: Vital Signs Temp 97.9 F 12/16/23 07:34 Pulse 70 12/16/23 07:34 Resp 16 12/16/23 07:34 BP 105/65 12/16/23 07:34 Pulse Ox 93 L 12/16/23 07:34 FiO2 Intake & Output 12/15/23 12/16/23 12/16/23 18:59 06:59 18:59 Intake Total 200 600 Balance 200 600 Weight 136 kg Intake: Intake, IV Titration 100 Amount Piperacillin-Tazobactam 3 100 .375 gm In Sodium Chloride 0.9% 100 ml @ 25 mls/hr IVPB Q8H [facility] Rx#: [id number] Oral 200 500 Other: Voiding Method Toilet Toilet Toilet # Voids 2 2 # Bowel Movements 2 - Constitutional General appearance: Present: no acute distress, obese - EENT Eyes: Present: EOMI ENT: Present: hearing grossly normal - Respiratory Details: breathing is even and unlabored - Cardiovascular Details: skin warm and dry - Gastrointestinal General gastrointestinal: Present: tenderness Localized gastrointestinal: tender: diffuse (no guarding ) - Integumentary Integumentary: Present: jaundiced. Absent: cyanotic - Neurologic Neurologic: Present: CNII-XII intact - Musculoskeletal Musculoskeletal: Present: strength equal bilaterally - Psychiatric Psychiatric: Present: A&O x's 3 - Labs CBC & Chem 7: 12/16/23 06:44 12/16/23 06:44 Labs: Abnormal Lab Results - Last 24 Hours (Table) 12/15/23 12/16/23 12/16/23 Range/Units 17:14 06:44 06:44 WBC 23.8 H (3.8-10.6) k/uL RDW 19.8 H (11.5-15.5) % Plt Count 36 L D (150-450) k/uL Neutrophils # 20.2 H (1.3-7.7) k/uL Monocytes # 1.7 H (0-1.0) k/uL PT 21.1 H 18.1 H (10.0-12.5) sec INR 2.1 H 1.8 H (<1.2) APTT 39.5 H 42.4 H (22.0-30.0) sec Fibrinogen 183 L 198 L (200-500) mg/dL Sodium (137-145) mmol/L Chloride (98-107) mmol/L Carbon Dioxide (22-30) mmol/L BUN (7-17) mg/dL Calcium (8.4-10.2) mg/dL Total Bilirubin (0.2-1.3) mg/dL AST (14-36) U/L ALT (4-34) U/L Alkaline Phosphatase (38-126) U/L Total Protein (6.3-8.2) g/dL Albumin (3.5-5.0) g/dL 12/16/23 Range/Units 06:44 WBC (3.8-10.6) k/uL RDW (11.5-15.5) % Plt Count (150-450) k/uL Neutrophils # (1.3-7.7) k/uL Monocytes # (0-1.0) k/uL PT (10.0-12.5) sec INR (<1.2) APTT (22.0-30.0) sec Fibrinogen (200-500) mg/dL Sodium 136 L (137-145) mmol/L Chloride 112 H (98-107) mmol/L Carbon Dioxide 21 L (22-30) mmol/L BUN 29 H (7-17) mg/dL Calcium 6.9 L (8.4-10.2) mg/dL Total Bilirubin 3.9 H (0.2-1.3) mg/dL AST 196 H (14-36) U/L ALT 46 H (4-34) U/L Alkaline Phosphatase 346 H (38-126) U/L Total Protein 4.8 L (6.3-8.2) g/dL Albumin 1.8 L (3.5-5.0) g/dL Microbiology - Last 24 Hours (Table) 12/13/23 19:21 Blood Culture - Preliminary Blood 12/13/23 19:05 Blood Culture - Preliminary Blood Assessment and Plan (1) DIC (disseminated intravascular coagulation) Current Visit: Yes Status: Acute Priority: High Code(s): D65 - DISSEMINAT ED INTRAVASCULAR COAGULATION SNOMED Code(s): 71182766 (2) Nausea and vomiting Current Visit: Yes Status: Acute Priority: Medium Code(s): R11.2 - NAUSEA WITH VOMITING, UNSPECIFIED SNOMED Code(s): 58880662 (3) Post-op pain Current Visit: Yes Status: Acute Priority: Medium Code(s): G89.18 - OTHER ACUTE POSTPROCEDURAL PAIN SNOMED Code(s): 548986943 (4) Thrombocytopenia Current Visit: Yes Status: Acute Priority: High Code(s): D69.6 - THROMBOCYTOPENIA, UNSPECIFIED SNOMED Code(s): 660329081 (5) Stage III breast cancer in female Current Visit: No Status: Acute Priority: High Code(s): C50.919 - MAL IGNANT NEOPLASM OF UNSP SITE OF UNSPECIFIED FEMALE BREAST SNOMED Code(s): 20675040 Plan: Abd pain, transaminitis with hepatic lesion: S/p karla on 12/08. Noted to have progressing nausea/vomiting, abd pain and weakness over the last 2 days -Labs in clinic noted hepatocellular and cholestatic transaminitis, which was also noted on this and prior admission -During last admission, gallbladder ultrasound noted pericholecystic fluid surrounding the gallbladder along with hepatic lesions and MRI of the liver noted left hepatic lobe lesion measuring 5.1 cm. -Underwent cholecystectomy on 12/09/2023 with noted inflamed gallbladder along with nodular lesions on the liver with biopsy of one of the lesions performed -Liver biopsy positive for metastatic breast cancer -Obtained repeat US gallbladder for further evaluation to r/o obstruction, ho wever, CT AP did not note findings of the same, and noted liver failure, hyperbilrubinemia is likely related to metastatic disease. Gallbladder ultrasound revealed postcholecystectomy changes without evidence for organizing fluid collection. -Case has been discussed with ID. Cultures have been negative for 48 hrs and pt has remained afebrile during admission, as well as a high suspicion that patie nts acute liver failure is r/t malignancy; so at this time we will proceed with Taxol. DIC: -CBC was notable for platelets 17,000. Hemoglobin stable at 14.4, Coags were elevated with a fibrinfogen of 76, consistent with DIC -S/p 1 dose pooled cryoprecipitate. 1 dose Vit K 5mg was also given -Repeat DIC labs today show stable coags, fibrinogen improved at 198, with no reported episodes of acute bleeding -Recheck DIC labs q12hrs. 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: -Underwent neoadjuvant chemoimmunotherapy with carboplatin/Taxol/Keytruda for 4 cycles followed by 3 cycles of AC plus Keytruda -Treatment was complicated by adrenal insufficiency secondary to Keytruda, cycle 4 of AC plus Keytruda omitted -Bilateral mastectomy performed at [facility] on 05/11/2023 noted pathologic complete response -CT chest revealed no acute findings -Bone scan revealed uptake in the bilateral ribs, right hemisacrum, and left ilium adjacent to the SI joint and left femoral supracondylar region medially concerning for metastatic disease -Liver biopsy positive for metastatic breast cancer. Results were discussed with patient. Discussed that due to progressing acute liver failure, we recommend starting single agent Taxol inpatient. Risks vs benefits discussed, including risks involved with recent cholecystectomy on 12/08. She verbalized understanding and was agreeable to proceed with treatment. -PICC line placed. Taxol scheduled for today
--- NOTE | 2023-12-16 15:39 | P.PN ---
Subjective Progress Note Date: 12/16/23 This is a pleasant 43-year-old female who presented to the emergency department with increased abdominal pain, postop nausea and vomiting with decreased oral intake and dehydration. Patient recently was hospitalized underwent liver biopsy along with acute cholecystectomy with general surgery Dr. Vuong last week. Patient reports she continued to have abdominal pain and difficulty tolerating oral intake and recently started developing nausea and vomiting again. Patient reports severe abdominal pain with no improvement. Patient reports having minimal bowel movements although is passing gas and is urinating with no difficulties. Labs reviewed on admission and had a D-dimer done which was significantly elevated underwent CTA with no suggestion of PE. Other labs reveal an elevated white count of 20.8, hemoglobin stable at 14.4, platelets significantly low at 17, INR 2.0, D-dimer above 34, sodium 135, potassium 3.7, creatinine 1.01, lactic acid was 2.0, total bili is 5.9 with an AST of 229 and ALT is 78 and alk phos is 365, lipase was 34. Urinalysis was negative and influenza/COVID/RSV are all negative as well. Patient was admitted for dehydration with general surgery as well as oncology on consult. Patient did undergo a liver biopsy last admission during the cholecystectomy which remains pending. Patient having an increasing white count this morning of 26 with no fevers noted and empiric antibiotics started and will consult infectious disease and appreciate input and recommendations. EKG shows sinus rhythm, abdominal pelvis CT shows postcholecystectomy changes with high density fluid in the pelvis around the uterus posteriorly representing possible blood products with no evidence of pneumoperitoneum or organizing peripheral enhancing fluid collection to suggest abscess, persistent liver lesions as noted on MRI from 422 concerning of metastatic disease until proven otherwise and a trace bilateral pleural effusions. Patient is on room air and denies significant shortness of breath although does feel exerted with minimal exertion. Will add incentive spirometer. 12/15/2023 Patient is seen in follow-up this morning lethargic although arousable. Patient is scheduled to undergo a PICC line as oncology is following and discussing initiating Taxol chemotherapy while inpatient. Repeat ultrasound showing post cholecystectomy changes. Per oncology, liver biopsy that was performed last week is positive for metastatic breast cancer. Patient continues to report some nausea and vomiting with decreased oral intake and continued abdominal pain. Patient is having some generalized edema noted and was given a dose of Lasix. Patient's labs consistent with DIC and is status post cryoprecipitate. Oncology following closely. White count is trending down and patient is maintained on antibiotics. Infectious diseases following. Overall prognosis remains guarded. 12/16/2023 Patient seen and evaluated in follow-up status post PICC line placement with oncology following closely with plans of initiating chemotherapy while inpatient today. Multiple medical consultations following. Patient was initiated on antibiotics and white count is trending down. Infectious disease following and will be monitored closely off antibiotic therapy. Patient will receive Taxol and will be monitored closely. Patient also to receive platelets today. Continue with current regimen with oncology following closely. Encouraged to increase activity as tolerated. Patient reports generalized weakness although is getting up and walking to the bathroom. Patient does feel somewhat short of breath with exertion. Patient continues with generalized edema noted of the lower extremities as well as upper and abdomen. Will continue to encourage elevating lower extremities while at rest and may use Mark wraps or compression stockings to assist with swelling. Diet has been advanced per surgery and boost supplements also being added as patient reports continued abdominal pain with not much of an appetite. Review of systems: Constitutional: reports of fatigue, no fever, or chills Cardiovascular: No reports of chest pain or palpitations Respiratory: reports of occasional shortness of breath GI: reports of nausea, no vomiting, or diarrhea : No reports of dysuria or retention Neurovascular: reports of generalized weakness and overall body swelling All medications have been reviewed PHYSICAL EXAMINATION: GENERAL: The patient is alert and oriented x3. Well developed, well nourished. Morbidly obese HEENT: Pupils are round and equally reacting to light. EOMI. No scleral icterus. No conjunctival pallor. Normocephalic, atraumatic. No pharyngeal erythema. No t hyromegaly. CARDIOVASCULAR: S1 and S2 muffled PULMONARY: Chest is clear to auscultation, no wheezing or crackles. ABDOMEN: Soft, tender, nondistended, normoactive bowel sounds. No palpable organomegaly. Surgical sites noted on the right upper quadrant with some serous drainage and a previous blister which appears to be irritation from the tape with no significant redness or cellulitis noted MUSCULOSKELETAL: No joint swelling or deformity. EXTREMITIES: No cyanosis, clubbing, or pedal edema. NEUROLOGICAL: Gross neurological examination did not reveal any focal deficits. Diffusely weak SKIN: No rashes. Assessment: Nausea vomiting, decreased oral intake with dehydration and continued abdominal pain, multifactorial, most likely secondary to metastatic disease Status post laparoscopic cholecystectomy last week Significant leukocytosis, multifactorial, likely reactive, trending down Status post liver biopsy which is positive for metastatic breast cancer DIC with coagulopathy, secondary to liver lesions History of known breast cancer status post bilateral mastectomy in [place] in the summer 2022 with radiation treatment completed in August Chemotherapy induced adrenal insufficiency Morbid obesity with a BMI of 40.7 GI prophylaxis DVT prophylaxis Full code Plan: Patient was admitted with continued abdominal pain with nausea and vomiting with general surgery following as patient is recent laparoscopic cholecystectomy on 12/09/2023. No plans for surgical intervention Patient did have a biopsy of the liver obtained at that time which the official report is pending, but oncology received final report which was positive for metastatic breast cancer Oncology following as patient is history of breast cancer with mastectomy with noted liver lesions that are metastatic. Recent bone scan on last admission also with increased uptake noted in multiple ribs. Patient received a PICC line and will be given Taxol chemotherapy. Oncology ordering as well as platelets White count trending down and will monitor off antibiotic therapy. Infectious diseases following closely. Undergoing DIC monitoring, labs are consistent with DIC and is status post cryoprecipitate. Repeat labs ordered every 12 hours Home medications reviewed and resumed as appropriate Encourage incentive spirometer use at least 10 times every hour while awake Patient having some generalized edema noted throughout upper and lower extremities and abdomen. Recommend Mark wraps or compression stockings to bilateral lower extremities and elevating and while at rest. Will continue with pain management and antinausea medications Overall prognosis is extremely guarded at this time The impression and plan of care has been dictated by Vanna Stevens, Nurse Practitioner as directed. Dr. Leeanne MD I have performed a history and examination and MDM of this patient, discussed the same with the dictator, and agree with the dictator's assessment and plan as written ,documented as a scribe. Based on total visit time, I have performed more than 50% of the visit. Objective - Vital Signs Vital signs: Vital Signs Temp 97.9 F 12/16/23 07:34 Pulse 70 12/16/23 07:34 Resp 16 12/16/23 07:34 BP 105/65 12/16/23 07:34 Pulse Ox 93 L 12/16/23 07:34 FiO2 Intake & Output 12/15/23 12/16/23 12/16/23 18:59 06:59 18:59 Intake Total 200 600 Balance 200 600 Weight 136 kg Intake: Intake, IV Titration 100 Amount Piperacillin-Tazobactam 3 100 .375 gm In Sodium Chloride 0.9% 100 ml @ 25 mls/hr IVPB Q8H ON LICENSE OF [facility] Rx#: [id number] Oral 200 500 Other: Voiding Method Toilet Toilet # Voids 2 2 # Bowel Movements 2 - Labs CBC & Chem 7: 12/16/23 06:44 12/16/23 06:44 Labs: Abnormal Lab Results - Last 24 Hours (Table) 12/15/23 12/15/23 12/16/23 Range/Units 05:23 17:14 06:44 WBC 23.8 H (3.8-10.6) k/uL RDW 19.8 H (11.5-15.5) % Plt Count 36 L D (150-450) k/uL Neutrophils # 20.2 H (1.3-7.7) k/uL Monocytes # 1.7 H (0-1.0) k/uL PT 21.1 H (10.0-12.5) sec INR 2.1 H (<1.2) APTT 39.5 H (22.0-30.0) sec Fibrinogen 183 L (200-500) mg/dL Sodium (137-145) mmol/L Chloride (98-107) mmol/L Carbon Dioxide (22-30) mmol/L BUN (7-17) mg/dL Calcium (8.4-10.2) mg/dL Total Bilirubin 4.4 H (0.2-1.3) mg/dL Conjugated Bilirubin 0.8 H (0.0-0.3) mg/dL Unconjugated Bilirubin 2.5 H (0.0-1.1) mg/dL AST 213 H (14-36) U/L ALT 61 H (4-34) U/L Alkaline Phosphatase 343 H (38-126) U/L Total Protein 5.2 L (6.3-8.2) g/dL Albumin 2.1 L (3.5-5.0) g/dL 12/16/23 12/16/23 Range/Units 06:44 06:44 WBC (3.8-10.6) k/uL RDW (11.5-15.5) % Plt Count (150-450) k/uL Neutrophils # (1.3-7.7) k/uL Monocytes # (0-1.0) k/uL PT 18.1 H (10.0-12.5) sec INR 1.8 H (<1.2) APTT 42.4 H (22.0-30.0) sec Fibrinogen 198 L (200-500) mg/dL Sodium 136 L (137-145) mmol/L Chloride 112 H (98-107) mmol/L Carbon Dioxide 21 L (22-30) mmol/L BUN 29 H (7-17) mg/dL Calcium 6.9 L (8.4-10.2) mg/dL Total Bilirubin 3.9 H (0.2-1.3) mg/dL Conjugated Bilirubin (0.0-0.3) mg/dL Unconjugated Bilirubin (0.0-1.1) mg/dL AST 196 H (14-36) U/L ALT 46 H (4-34) U/L Alkaline Phosphatase 346 H (38-126) U/L Total Protein 4.8 L (6.3-8.2) g/dL Albumin 1.8 L (3.5-5.0) g/dL Microbiology - Last 24 Hours (Table) 12/13/23 19:21 Blood Culture - Preliminary Blood 12/13/23 19:05 Blood Culture - Preliminary Blood
[2023-12-16 17:51] LABS: INR 1.9 (<1.2); Partial Thromboplastin Time 44.7 sec (22.0-30.0)
[2023-12-16] MEDS: PANTOPRAZOLE 40 MG/10 ML VIAL IVP SCH (19:31)
[2023-12-17 07:00] LABS: INR 2.2 (<1.2); Partial Thromboplastin Time 52.7 sec (22.0-30.0); Prothrombin Time 21.7 sec (10.0-12.5)
[2023-12-17 09:09] LABS: ALT 55 U/L (8-44); AST 280 U/L (13-35); Albumin 2.2 g/dL (3.8-4.9); Albumin/Globulin Ratio 0.92 Ratio (1.60-3.17); Alkaline Phosphatase 449 U/L (41-126); BUN/Creat Ratio 30.33 Ratio (12.00-20.00); Blood Urea Nitrogen 36.4 mg/dL (9.0-27.0); Calcium 6.9 mg/dL (8.7-10.3); Carbon Dioxide 19.7 mmol/L (21.6-31.8); Chloride 106 mmol/L (96-109); Globulin 2.4 g/dL (1.6-3.3); Glucose 116 mg/dL (70-110); Potassium 5.1 mmol/L (3.5-5.5); Sodium 138 mmol/L (135-145); Total Bilirubin 5.8 mg/dL (0.3-1.2); Total Protein 4.6 g/dL (6.2-8.2)
[2023-12-17 09:11] LABS: Basophils # (A) 0.06 X 10*3/uL (0.00-0.10); Basophils % (A) 0.3 %; Eosinophils # (A) 0.01 X 10*3/uL (0.04-0.35); Eosinophils % (A) 0 %; HCT 39.9 % (37.2-46.3); HGB 12.8 g/dL (12.0-15.0); Immature Platelet Fraction 16.7 % (1.1-6.1); Lymphocytes # (A) 1.53 X 10*3/uL (0.90-5.00); Lymphocytes % (A) 6.5 %; MCH 29.2 pg (27.0-32.0); MCHC 32.1 g/dL (32.0-37.0); MCV 90.9 FL (80.0-97.0); Monocytes # (A) 1.93 X 10*3/uL (0.20-1.00); Monocytes % (A) 8.2 %; NRBC Per 100 WBC 0.11 X 10*3/uL (0.00-0.01); Neutrophils # (A) 19.35 X 10*3/uL (1.80-7.70); Neutrophils % (A) 82.4 %; Platelet Count 45 X 10*3/uL (140-440); RBC 4.39 X 10*6/uL (4.10-5.20); RDW 22.4 % (11.5-14.5); Schistocytes 1+; WBC 23.48 X 10*3/uL (4.50-10.00)
[2023-12-17] MEDS: PHYTONADIONE 5 MG in SODIUM CHLORIDE 0.9% 50 ML IVPB STA (14:25)
--- NOTE | 2023-12-17 15:36 | P.PN ---
Subjective Progress Note Date: 12/17/23 CHIEF COMPLAINT: Abdominal pain HISTORY OF PRESENT ILLNESS: Patient reports decreased in pain at her surgical sites. She does continue to report nausea. She did start chemotherapy. Overall just feels tired. Pathology results on liver wedge biopsy reports metastatic non-small cell carcinoma consistent with high-grade ductal breast primary. Afebrile. WBC 23.4 hemoglobin 12.8 platelets 45 INR 2.2 fibrinogen 126 total bili 5.8 AST 280 ALT 55 alk phos 449 PHYSICAL EXAM: VITAL SIGNS: Reviewed. GENERAL: no acute distress. HEENT: Sclera icterus present ABDOMEN: Soft. Nondistended. Tender with palpation right upper quadrant. Right-sided incision with blisters and serous drainage from blister. Blister is slightly larger. Some bruising noted around the right side abdomen near incision NEUROLOGIC: Alert and oriented. Cranial nerves II through XII grossly intact. Skin: Jaundiced ASSESSMENT: 1. Metastatic breast cancer with liver metastasis and Liver failure 2. Intractable nausea 3. DIC followed by oncology service 4. Fluid collection in the pelvis on CT likely old blood 5. Recent laparoscopic cholecystectomy on December 09, 2023 with liver lesion biopsy. 6. History of breast cancer status post bilateral mastectomy, chemo and radiation PLAN: -No surgical intervention planned -Continue supportive care -Patient followed by oncology service -Continue full liquids. Continue Ensure for protein supplement Physician Performance Tester note has been reviewed by physician. Signing provider agrees with the documented findings, assessment, and plan of care. Objective - Vital Signs Vital signs: Vital Signs Temp 97.6 F 12/17/23 15:24 Pulse 83 12/17/23 15:24 Resp 20 12/17/23 15:24 BP 119/80 12/17/23 15:24 Pulse Ox 85 L 12/17/23 15:24 FiO2 Intake & Output 12/16/23 12/17/23 12/17/23 18:59 06:59 18:59 Intake Total 979 0 Balance 979 0 Weight 137.5 kg 137.5 kg Intake: Intake, IV Titration 100 Amount Piperacillin-Tazobactam 3 100 .375 gm In Sodium Chloride 0.9% 100 ml @ 25 mls/hr IVPB Q8H [facility] Rx#: [id number] Oral 600 Blood Product 279 0 Unit 0 Platelet Pheresis Pas 279 Psoralen Unit [id number] Other: Voiding Method Toilet Toilet Toilet # Voids 2 1 1 # Bowel Movements 1 - Labs CBC & Chem 7: 12/17/23 06:25 12/17/23 06:25 Labs: Abnormal Lab Results - Last 24 Hours (Table) 12/16/23 12/17/23 12/17/23 Range/Units 17:16 06:25 06:25 WBC 23.48 H (4.50-10.00) X 10*3/uL RDW 22.4 H (11.5-14.5) % Plt Count 45 L (140-440) X 10*3/uL Immature Gran # 0.60 H (0.00-0.04) X 10*3/uL Neutrophils # 19.35 H (1.80-7.70) X 10*3/uL Monocytes # 1.93 H (0.20-1.00) X 10*3/uL Eosinophils # 0.01 L (0.04-0.35) X 10*3/uL NRBC/100 WBC Diff 0.11 H (0.00-0.01) X 10*3/uL Immature Plt Fraction 16.7 H (1.1-6.1) % Schistocytes 1+ A PT 19.0 H (10.0-12.5) sec INR 1.9 H (<1.2) APTT 44.7 H (22.0-30.0) sec Fibrinogen 184 L (200-500) mg/dL Carbon Dioxide 19.7 L (21.6-31.8) mmol/L Anion Gap 12.30 H (4.00-12.00) mmol/L BUN 36.4 H (9.0-27.0) mg/dL Est GFR (CKD-EPI) 58 L (>=60) BUN/Creatinine Ratio 30.33 H (12.00-20.00) Ratio Glucose 116 H (70-110) mg/dL Calcium 6.9 L (8.7-10.3) mg/dL Total Bilirubin 5.8 H (0.3-1.2) mg/dL AST 280 H (13-35) U/L ALT 55 H (8-44) U/L Alkaline Phosphatase 449 H (41-126) U/L Total Protein 4.6 L (6.2-8.2) g/dL Albumin 2.2 L (3.8-4.9) g/dL Albumin/Globulin Ratio 0.92 L (1.60-3.17) Ratio 12/17/23 Range/Units 06:25 WBC (4.50-10.00) X 10*3/uL RDW (11.5-14.5) % Plt Count (140-440) X 10*3/uL Immature Gran # (0.00-0.04) X 10*3/uL Neutrophils # (1.80-7.70) X 10*3/uL Monocytes # (0.20-1.00) X 10*3/uL Eosinophils # (0.04-0.35) X 10*3/uL NRBC/100 WBC Diff (0.00-0.01) X 10*3/uL Immature Plt Fraction (1.1-6.1) % Schistocytes PT 21.7 H (10.0-12.5) sec INR 2.2 H (<1.2) APTT 52.7 H (22.0-30.0) sec Fibrinogen 126 L (200-500) mg/dL Carbon Dioxide (21.6-31.8) mmol/L Anion Gap (4.00-12.00) mmol/L BUN (9.0-27.0) mg/dL Est GFR (CKD-EPI) (>=60) BUN/Creatinine Ratio (12.00-20.00) Ratio Glucose (70-110) mg/dL Calcium (8.7-10.3) mg/dL Total Bilirubin (0.3-1.2) mg/dL AST (13-35) U/L ALT (8-44) U/L Alkaline Phosphatase (41-126) U/L Total Protein (6.2-8.2) g/dL Albumin (3.8-4.9) g/dL Albumin/Globulin Ratio (1.60-3.17) Ratio Microbiology - Last 24 Hours (Table) 12/13/23 19:21 Blood Culture - Preliminary Blood 12/13/23 19:05 Blood Culture - Preliminary Blood
[2023-12-17 17:30] LABS: INR 2.2 (<1.2); Partial Thromboplastin Time 53.8 sec (22.0-30.0); Prothrombin Time 22.2 sec (10.0-12.5)
[2023-12-17] MEDS: PROCHLORPERAZINE INJ 10 MG/2 ML VIAL IVP PRN (17:32)
--- NOTE | 2023-12-17 20:24 | P.PN ---
Subjective Progress Note Date: 12/17/23 This is a pleasant 43-year-old female who presented to the emergency department with increased abdominal pain, postop nausea and vomiting with decreased oral intake and dehydration. Patient recently was hospitalized underwent liver biopsy along with acute cholecystectomy with general surgery Dr. Vuong last week. Patient reports she continued to have abdominal pain and difficulty tolerating oral intake and recently started developing nausea and vomiting again. Patient reports severe abdominal pain with no improvement. Patient reports having minimal bowel movements although is passing gas and is urinating with no difficulties. Labs reviewed on admission and had a D-dimer done which was significantly elevated underwent CTA with no suggestion of PE. Other labs reveal an elevated white count of 20.8, hemoglobin stable at 14.4, platelets significantly low at 17, INR 2.0, D-dimer above 34, sodium 135, potassium 3.7, creatinine 1.01, lactic acid was 2.0, total bili is 5.9 with an AST of 229 and ALT is 78 and alk phos is 365, lipase was 34. Urinalysis was negative and influenza/COVID/RSV are all negative as well. Patient was admitted for dehydration with general surgery as well as oncology on consult. Patient did undergo a liver biopsy last admission during the cholecystectomy which remains pending. Patient having an increasing white count this morning of 26 with no fevers noted and empiric antibiotics started and will consult infectious disease and appreciate input and recommendations. EKG shows sinus rhythm, abdominal pelvis CT shows postcholecystectomy changes with high density fluid in the pelvis around the uterus posteriorly representing possible blood products with no evidence of pneumoperitoneum or organizing peripheral enhancing fluid collection to suggest abscess, persistent liver lesions as noted on MRI from 422 concerning of metastatic disease until proven otherwise and a trace bilateral pleural effusions. Patient is on room air and denies significant shortness of breath although does feel exerted with minimal exertion. Will add incentive spirometer. 12/15/2023 Patient is seen in follow-up this morning lethargic although arousable. Patient is scheduled to undergo a PICC line as oncology is following and discussing initiating Taxol chemotherapy while inpatient. Repeat ultrasound showing post cholecystectomy changes. Per oncology, liver biopsy that was performed last week is positive for metastatic breast cancer. Patient continues to report some nausea and vomiting with decreased oral intake and continued abdominal pain. Patient is having some generalized edema noted and was given a dose of Lasix. Patient's labs consistent with DIC and is status post cryoprecipitate. Oncology following closely. White count is trending down and patient is maintained on antibiotics. Infectious diseases following. Overall prognosis remains guarded. 12/16/2023 Patient seen and evaluated in follow-up status post PICC line placement with oncology following closely with plans of initiating chemotherapy while inpatient today. Multiple medical consultations following. Patient was initiated on antibiotics and white count is trending down. Infectious disease following and will be monitored closely off antibiotic therapy. Patient will receive Taxol and will be monitored closely. Patient also to receive platelets today. Continue with current regimen with oncology following closely. Encouraged to increase activity as tolerated. Patient reports generalized weakness although is getting up and walking to the bathroom. Patient does feel somewhat short of breath with exertion. Patient continues with generalized edema noted of the lower extremities as well as upper and abdomen. Will continue to encourage elevating lower extremities while at rest and may use Mark wraps or compression stockings to assist with swelling. Diet has been advanced per surgery and boost supplements also being added as patient reports continued abdominal pain with not much of an appetite. 12/17/2023 Patient is seen in follow-up today status post chemotherapy of Taxol. Patient reports to feeling significantly tired and weak with continued abdominal pain a nd nausea. Patient has been using Zofran and general surgery following as patient is recent status post lap cholecystectomy. No plans for surgical intervention at this time. Patient is receiving platelets today and other labs reviewed with oncology following closely undergoing further DIC treatment and workup. Infectious disease following as well and patient is being closely monitored off antibiotic therapy. White count remains elevated. Patient is afebrile. Patient is maintained on full liquids although reports not eating much and not tolerating. Patient has significant pain when attempting to eat or drink and associated with severe nausea. Encouraged patient to increase activity as tolerated and attempt to sit up in the chair. Ensure supplements being added. Patient appears jaundice and edematous. Review of systems: Constitutional: reports of extreme fatigue, no fever, or chills Cardiovascular: No reports of chest pain or palpitations Respiratory: reports of occasional shortness of breath GI: reports of nausea, no vomiting, or diarrhea : No reports of dysuria or retention Neurovascular: reports of generalized weakness and overall body swelling All medications have been reviewed PHYSICAL EXAMINATION: GENERAL: The patient is asleep but arousable, alert and oriented x3. Appears exhausted. Well developed, well nourished. Ill-appearing. Morbidly obese HEENT: Pupils are round and equally reacting to light. EOMI. No scleral icterus. No conjunctival pallor. Normocephalic, atraumatic. No pharyngeal erythema. No thyromegaly. CARDIOVASCULAR: S1 and S2 muffled PULMONARY: Chest is clear to auscultation, no wheezing or crackles. ABDOMEN: Soft, tender, nondistended, normoactive bowel sounds. No palpable organomegaly. Surgical sites noted on the right upper quadrant with some serous drainage and a previous blister which appears to be irritation from the tape with no significant redness or cellulitis noted MUSCULOSKELETAL: No joint swelling or deformity. EXTREMITIES: No cyanosis, clubbing, or pedal edema. Bilateral upper and lower extremities edematous NEUROLOGICAL: Gross neurological examination did not reveal any focal deficits. Diffusely weak SKIN: No rashes. 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 Patient received a PICC line and was given Taxol chemotherapy. Oncology following ordering additional platelets White count trending down and will monitor off antibiotic therapy. Infectious diseases following closely. Undergoing DIC monitoring, labs are consistent with DIC and is status post cryoprecipitate. Repeat labs ordered every 12 hours Home medications reviewed and resumed as appropriate Encourage incentive spirometer use at least 10 times every hour while awake Patient having some generalized edema noted throughout upper and lower extremities and abdomen. Recommend Mark wraps or compression stockings to bilateral lower extremities and elevating and while at rest. Patient is extremely edematous although is most likely dehydrated, concern for third spacing. Patient appears jaundiced with elevated bilirubin and liver functions. Will continue with pain management and antinausea medications. Encouraged oral intake Overall prognosis is extremely guarded at this time. Condition is critical The impression and plan of care has been dictated by Vanna Stevens, Nurse Practitioner as directed. Dr. Leeanne MD I have performed a history and examination and MDM of this patient, discussed the same with the dictator, and agree with the dictator's assessment and plan as written ,documented as a scribe. Based on total visit time, I have performed more than 50% of the visit. Objective - Vital Signs Vital signs: Vital Signs Temp 98 F 12/17/23 06:38 Pulse 82 12/17/23 06:38 Resp 17 12/17/23 06:38 BP 102/67 12/17/23 06:38 Pulse Ox 92 L 12/17/23 06:38 FiO2 Intake & Output 12/16/23 12/17/23 12/17/23 18:59 06:59 18:59 Intake Total 979 Balance 979 Weight 137.5 kg Intake: Intake, IV Titration 100 Amount Piperacillin-Tazobactam 3 100 .375 gm In Sodium Chloride 0.9% 100 ml @ 25 mls/hr IVPB Q8H [facility] Rx#: [id number] Oral 600 Blood Product 279 Platelet Pheresis Pas 279 Psoralen Unit [id number] Other: Voiding Method Toilet Toilet Toilet # Voids 2 1 - Labs CBC & Chem 7: 12/17/23 06:25 12/17/23 06:25 Labs: Abnormal Lab Results - Last 24 Hours (Table) 12/16/23 12/16/23 12/16/23 Range/Units 06:44 06:44 17:16 Neutrophils # 20.2 H (1.3-7.7) k/uL Monocytes # 1.7 H (0-1.0) k/uL PT 19.0 H (10.0-12.5) sec INR 1.9 H (<1.2) APTT 44.7 H (22.0-30.0) sec Fibrinogen 184 L (200-500) mg/dL Sodium 136 L (137-145) mmol/L Chloride 112 H (98-107) mmol/L Carbon Dioxide 21 L (22-30) mmol/L BUN 29 H (7-17) mg/dL Calcium 6.9 L (8.4-10.2) mg/dL Total Bilirubin 3.9 H (0.2-1.3) mg/dL AST 196 H (14-36) U/L ALT 46 H (4-34) U/L Alkaline Phosphatase 346 H (38-126) U/L Total Protein 4.8 L (6.3-8.2) g/dL Albumin 1.8 L (3.5-5.0) g/dL 12/17/23 Range/Units 06:25 Neutrophils # (1.3-7.7) k/uL Monocytes # (0-1.0) k/uL PT 21.7 H (10.0-12.5) sec INR 2.2 H (<1.2) APTT 52.7 H (22.0-30.0) sec Fibrinogen 126 L (200-500) mg/dL Sodium (137-145) mmol/L Chloride (98-107) mmol/L Carbon Dioxide (22-30) mmol/L BUN (7-17) mg/dL Calcium (8.4-10.2) mg/dL Total Bilirubin (0.2-1.3) mg/dL AST (14-36) U/L ALT (4-34) U/L Alkaline Phosphatase (38-126) U/L Total Protein (6.3-8.2) g/dL Albumin (3.5-5.0) g/dL Microbiology - Last 24 Hours (Table) 12/13/23 19:21 Blood Culture - Preliminary Blood 12/13/23 19:05 Blood Culture - Preliminary Blood
--- NOTE | 2023-12-17 22:05 | P.PN ---
Subjective Progress Note Date: 12/17/23 Principal diagnosis: Reason for follow-up is a leukocytosis and the question of infection Patient is a 43-year-old female with a past medical history significant for breast cancer status post bilateral mastectomy April 2023 followed by chemotherapy patient was recently admitted to this facility did have a right upper quadrant pain elevated white count and concern for cholecystitis in this patient who is status post laparoscopic cholecystectomy along with laparoscopic biopsy of the liver lesion which apparently are suggestive of metastatic breast cancer. Patient now presenting back to the hospital concerning for abdominal pain nausea and vomiting and weakness, patient did not have any fever did have elevated white count CT abdominal pelvis with polyp cholecystectomy changes and fluid in the pelvic around the uterus no evidence of pneumoperitoneum. On today's evaluation that is 12/17/2023, patient has been afebrile, patient is breathing comfortably and is currently on room air, patient has been complaining of feeling weak lethargic as the patient was started on chemotherapy last evening denies any worsening pain to arrival to quadrant area did have an episode of vomiting last night but none this morning no diarrhea. Patient white count is 23.48 slightly less than yesterday creatinine is 1.2 culture remains to be negative Objective - Vital Signs Vital signs: Vital Signs Temp 98 F 12/17/23 06:38 Pulse 82 12/17/23 06:38 Resp 17 12/17/23 06:38 BP 102/67 12/17/23 06:38 Pulse Ox 92 L 12/17/23 06:38 FiO2 Intake & Output 12/16/23 12/17/23 12/17/23 18:59 06:59 18:59 Intake Total 979 Balance 979 Weight 137.5 kg Intake: Intake, IV Titration 100 Amount Piperacillin-Tazobactam 3 100 .375 gm In Sodium Chloride 0.9% 100 ml @ 25 mls/hr IVPB Q8H [facility] Rx#: [id number] Oral 600 Blood Product 279 Platelet Pheresis Pas 279 Psoralen Unit [id number] Other: Voiding Method Toilet Toilet Toilet # Voids 2 1 - Exam GENERAL DESCRIPTION: Middle-aged female lying in bed in no distress RESPIRATORY SYSTEM: Unlabored breathing , decreased breath sounds at bases HEART: S1 S2 regular rate and rhythm , ABDOMEN: Soft , no tenderness EXTREMITIES: No edema feet - Labs CBC & Chem 7: 12/17/23 06:25 05/03/24 06:25 Labs: Abnormal Lab Results - Last 24 Hours (Table) 12/16/23 12/17/23 12/17/23 Range/Units 17:16 06:25 06:25 WBC 23.48 H (4.50-10.00) X 10*3/uL RDW 22.4 H (11.5-14.5) % Plt Count 45 L (140-440) X 10*3/uL Immature Gran # 0.60 H (0.00-0.04) X 10*3/uL Neutrophils # 19.35 H (1.80-7.70) X 10*3/uL Monocytes # 1.93 H (0.20-1.00) X 10*3/uL Eosinophils # 0.01 L (0.04-0.35) X 10*3/uL NRBC/100 WBC Diff 0.11 H (0.00-0.01) X 10*3/uL Immature Plt Fraction 16.7 H (1.1-6.1) % Schistocytes 1+ A PT 19.0 H (10.0-12.5) sec INR 1.9 H (<1.2) APTT 44.7 H (22.0-30.0) sec Fibrinogen 184 L (200-500) mg/dL Carbon Dioxide 19.7 L (21.6-31.8) mmol/L Anion Gap 12.30 H (4.00-12.00) mmol/L BUN 36.4 H (9.0-27.0) mg/dL Est GFR (CKD-EPI) 58 L (>=60) BUN/Creatinine Ratio 30.33 H (12.00-20.00) Ratio Glucose 116 H (70-110) mg/dL Calcium 6.9 L (8.7-10.3) mg/dL Total Bilirubin 5.8 H (0.3-1.2) mg/dL AST 280 H (13-35) U/L ALT 55 H (8-44) U/L Alkaline Phosphatase 449 H (41-126) U/L Total Protein 4.6 L (6.2-8.2) g/dL Albumin 2.2 L (3.8-4.9) g/dL Albumin/Globulin Ratio 0.92 L (1.60-3.17) Ratio 12/17/23 Range/Units 06:25 WBC (4.50-10.00) X 10*3/uL RDW (11.5-14.5) % Plt Count (140-440) X 10*3/uL Immature Gran # (0.00-0.04) X 10*3/uL Neutrophils # (1.80-7.70) X 10*3/uL Monocytes # (0.20-1.00) X 10*3/uL Eosinophils # (0.04-0.35) X 10*3/uL NRBC/100 WBC Diff (0.00-0.01) X 10*3/uL Immature Plt Fraction (1.1-6.1) % Schistocytes PT 21.7 H (10.0-12.5) sec INR 2.2 H (<1.2) APTT 52.7 H (22.0-30.0) sec Fibrinogen 126 L (200-500) mg/dL Carbon Dioxide (21.6-31.8) mmol/L Anion Gap (4.00-12.00) mmol/L BUN (9.0-27.0) mg/dL Est GFR (CKD-EPI) (>=60) BUN/Creatinine Ratio (12.00-20.00) Ratio Glucose (70-110) mg/dL Calcium (8.7-10.3) mg/dL Total Bilirubin (0.3-1.2) mg/dL AST (13-35) U/L ALT (8-44) U/L Alkaline Phosphatase (41-126) U/L Total Protein (6.2-8.2) g/dL Albumin (3.8-4.9) g/dL Albumin/Globulin Ratio (1.60-3.17) Ratio Microbiology - Last 24 Hours (Table) 12/13/23 19:21 Blood Culture - Preliminary Blood 12/13/23 19:05 Blood Culture - Preliminary Blood Assessment and Plan (1) Leukocytosis Current Visit: No Status: Acute Code(s): D72.829 - ELEVATED WHITE BLOOD CELL COUNT, UNSPECIFIED SNOMED Code(s): 701592172 Plan: 1patient presented hospital with abdominal pain nausea and vomiting in this patient who did have a history of metastatic breast cancer with recent laparoscopic cholecystectomy as well as laparoscopic biopsy of the liver lesion now with abnormal CT abdominal pelvis concerning for fluid in the lower pelvis, patient case has been discussed in detail with the general surgery no clinically suspicious for biliary leak or need for HIDA scan also discussed with Dr. Caballero from hematology oncology this morning and is assessment is presentation is mostly of metastatic breast cancer, patient did not have any fever during this admission patient antibiotic has been discontinued as of 12/16/2023 and there is no evidence of any fever or worsening white count patient will monitor closely off antibiotic therapy at this point question concern answered Dictation was produced using [employer] dictation software. please excuse any grammatical, word or spelling errors. Time with Patient: Less than 30
--- NOTE | 2023-12-17 23:20 | P.PN ---
Subjective Progress Note Date: 12/17/23 No acute events, at today's visit patient is resting comfortably in bed. Completed taxol infusion yesterday. tolerated well. Reporting fatigue today. Abd pain somewhat improved. Denies n/v. [place] prn has been ordered and is helping control pain. Coags increasing today, fibrinogen 126. Reports mild vaginal bleeding over the last cpl days with wiping with tissue, no clotting noted. She has not had a menstrual cycle in approx 1 year since starting chemo. Pt instructed to closely monitor for any worsening/increase in bleeding and to notify nursing immediately if noted. Bilirubin and LFTs increased today, bilirubin 5.8, AST 280, ALT 55, ALP 449. WBC 23.4, Hgb 12.8, platelets improved at 45,000. Pt remains afebirle, and blood cultures negative at 72 hours. Will order additional dose of cryoprecipitate and vitamin K Objective - Vital Signs Vital signs: Vital Signs Temp 98 F 12/17/23 06:38 Pulse 82 12/17/23 06:38 Resp 17 12/17/23 06:38 BP 102/67 12/17/23 06:38 Pulse Ox 92 L 12/17/23 06:38 FiO2 Intake & Output 12/16/23 12/17/23 12/17/23 18:59 06:59 18:59 Intake Total 979 Balance 979 Weight 137.5 kg Intake: Intake, IV Titration 100 Amount Piperacillin-Tazobactam 3 100 .375 gm In Sodium Chloride 0.9% 100 ml @ 25 mls/hr IVPB Q8H [facility] Rx#: [id number] Oral 600 Blood Product 279 Platelet Pheresis Pas 279 Psoralen Unit [id number] Other: Voiding Method Toilet Toilet Toilet # Voids 2 1 - Constitutional General appearance: Present: no acute distress - EENT Eyes: Present: EOMI ENT: Present: hearing grossly normal - Respiratory Details: breathing is even and unlabored - Cardiovascular Details: skin warm and dry - Gastrointestinal General gastrointestinal: Present: soft, tenderness Localized gastrointestinal: tender: RUQ, LUQ, epigastric periumbilical - Integumentary Integumentary: Present: jaundiced - Neurologic Neurologic: Present: CNII-XII intact - Musculoskeletal Musculoskeletal: Present: strength equal bilaterally - Psychiatric Psychiatric: Present: A&O x's 3 - Labs CBC & Chem 7: 12/17/23 06:25 12/17/23 06:25 Labs: Abnormal Lab Results - Last 24 Hours (Table) 12/16/23 12/17/23 12/17/23 Range/Units 17:16 06:25 06:25 WBC 23.48 H (4.50-10.00) X 10*3/uL RDW 22.4 H (11.5-14.5) % Plt Count 45 L (140-440) X 10*3/uL Immature Gran # 0.60 H (0.00-0.04) X 10*3/uL Neutrophils # 19.35 H (1.80-7.70) X 10*3/uL Monocytes # 1.93 H (0.20-1.00) X 10*3/uL Eosinophils # 0.01 L (0.04-0.35) X 10*3/uL NRBC/100 WBC Diff 0.11 H (0.00-0.01) X 10*3/uL Immature Plt Fraction 16.7 H (1.1-6.1) % Schistocytes 1+ A PT 19.0 H (10.0-12.5) sec INR 1.9 H (<1.2) APTT 44.7 H (22.0-30.0) sec Fibrinogen 184 L (200-500) mg/dL Carbon Dioxide 19.7 L (21.6-31.8) mmol/L Anion Gap 12.30 H (4.00-12.00) mmol/L BUN 36.4 H (9.0-27.0) mg/dL Est GFR (CKD-EPI) 58 L (>=60) BUN/Creatinine Ratio 30.33 H (12.00-20.00) Ratio Glucose 116 H (70-110) mg/dL Calcium 6.9 L (8.7-10.3) mg/dL Total Bilirubin 5.8 H (0.3-1.2) mg/dL AST 280 H (13-35) U/L ALT 55 H (8-44) U/L Alkaline Phosphatase 449 H (41-126) U/L Total Protein 4.6 L (6.2-8.2) g/dL Albumin 2.2 L (3.8-4.9) g/dL Albumin/Globulin Ratio 0.92 L (1.60-3.17) Ratio 12/17/23 Range/Units 06:25 WBC (4.50-10.00) X 10*3/uL RDW (11.5-14.5) % Plt Count (140-440) X 10*3/uL Immature Gran # (0.00-0.04) X 10*3/uL Neutrophils # (1.80-7.70) X 10*3/uL Monocytes # (0.20-1.00) X 10*3/uL Eosinophils # (0.04-0.35) X 10*3/uL NRBC/100 WBC Diff (0.00-0.01) X 10*3/uL Immature Plt Fraction (1.1-6.1) % Schistocytes PT 21.7 H (10.0-12.5) sec INR 2.2 H (<1.2) APTT 52.7 H (22.0-30.0) sec Fibrinogen 126 L (200-500) mg/dL Carbon Dioxide (21.6-31.8) mmol/L Anion Gap (4.00-12.00) mmol/L BUN (9.0-27.0) mg/dL Est GFR (CKD-EPI) (>=60) BUN/Creatinine Ratio (12.00-20.00) Ratio Glucose (70-110) mg/dL Calcium (8.7-10.3) mg/dL Total Bilirubin (0.3-1.2) mg/dL AST (13-35) U/L ALT (8-44) U/L Alkaline Phosphatase (41-126) U/L Total Protein (6.2-8.2) g/dL Albumin (3.8-4.9) g/dL Albumin/Globulin Ratio (1.60-3.17) Ratio Microbiology - Last 24 Hours (Table) 12/13/23 19:21 Blood Culture - Preliminary Blood 12/13/23 19:05 Blood Culture - Preliminary Blood Assessment and Plan (1) DIC (disseminated intravascular coagulation) Current Visit: Yes Status: Acute Priority: High Code(s): D65 - DISSEMINATED INTRAVASCULAR COAGULATION SNOMED Code(s): 43400669 (2) Nausea and vomiting Current Visit: Yes Status: Acute Priority: Medium Code(s): R11.2 - NAUSEA WITH VOMITING, UNSPECIFIED SNOMED Code(s): 48509019 (3) Post-op pain Current Visit: Yes Status: Acute Priority: Medium Code(s): G89.18 - OTHER ACUTE POSTPROCEDURAL PAIN SNOMED Code(s): 019530489 (4) Thrombocytopenia Current Visit: Yes Status: Acute Priority: High Code(s): D69.6 - THROMBOCYTOPENIA, UNSPECIFIED SNOMED Code(s): 976394034 (5) Stage III breast cancer in female Current Visit: No Status: Acute Priority: High Code(s): C50.919 - MALIGNANT NEOPLASM OF UNSP SITE OF UNSPECIFIED FEMALE BREAST SNOMED Code(s): 70443850 Plan: Abd pain, transaminitis with hepatic lesion: S/p karla on 12/08. Noted to have progressing nausea/vomiting, abd pain and weakness over the last 2 days -Labs in clinic noted hepatocellular and cholestatic transaminitis, which was also noted on this and prior admission -During last admission, gallbladder ultrasound noted pericholecystic fluid surrounding the gallbladder along with hepatic lesions and MRI of the liver noted left hepatic lobe lesion measuring 5.1 cm. -Underwent cholecystectomy on 12/09/2023 with noted inflamed gallbladder along with nodular lesions on the liver with biopsy of one of the lesions performed -Liver biopsy positive for metastatic breast cancer -Obtained repeat US gallbladder for further evaluation to r/o obstruction, however, CT AP did not note findings of the same, and noted liver failure, hyperbilrubinemia is likely related to metastatic disease. Gallbladder ultrasound revealed postcholecystectomy changes without evidence for organizing fluid collection. -Case has been discussed with ID. Blood cultures negative at 48 hrs and pt has remained afebrile during admission, as well as a high suspicion that patients acute liver failure is r/t malignancy; so at this time we will proceed with Taxol. -Abdominal pain has shown some improvement. She remains afebrile and blood c ultures negative at 72 hours DIC: -CBC was notable for platelets 17,000. Hemoglobin stable at 14.4, Coags were elevated with a fibrinfogen of 76, consistent with DIC -S/p 1 dose pooled cryoprecipitate. 1 dose Vit K 5mg was also given, with improvement in coags and fibrinogen noted -S/p chemo, Coags increased today with increase in LFTs and bilirubin. Fibrinogen 126. Have previously discussed with pt that initially after starting treatment we could see worsening in liver function, with hopes of improvement over the next couple days. She is experiencing mild vaginal bleeding noted with wiping with tissue, otherwise no other acute episodes of bleeding -Additional dose of cryoprecipitate and vitamin K ordered today -Recheck DIC labs q12hrs. Please transfuse cryoprecipitate if fibrinogen less than 100 -If acute bleeding is noted or worsening of vaginal bleeding please transfuse if plts less than 50,000. -Hold anticoagulation and NSAIDs Stage IIIA triple negative breast cancer: -Underwent neoadjuvant chemoimmunotherapy with carboplatin/Taxol/Keytruda for 4 cycles followed by 3 cycles of AC plus Keytruda -Treatment was complicated by adrenal insufficiency secondary to Keytruda, cycle 4 of AC plus Keytruda omitted -Bilateral mastectomy performed at [facility] on 05/11/2023 noted pathologic complete response -CT chest revealed no acute findings -Bone scan revealed uptake in the bilateral ribs, right hemisacrum, and left ilium adjacent to the SI joint and left femoral supracondylar region medially concerning for metastatic disease -Liver biopsy positive for metastatic breast cancer. Results were discussed with patient. Discussed that due to progressing acute liver failure, we recommend starting single agent Taxol inpatient. Risks vs benefits discussed, including risks involved with recent cholecystectomy on 12/08. She verbalized understanding and was agreeable to proceed with treatment. -Completed cycle 1 Taxol on 12/15. Tolerated well. Will plan to continue q3 weeks and plan to add keytruda with next cycle Doctor attests: I performed a history and physical examination of this patient, developed impression and plan of care. Discussed with dictator. I agree with dictators note, documented as a scribe.
[2023-12-18 06:41] LABS: ALT 54 U/L (4-34); AST 442 U/L (14-36); African American GFR (CKD) 43 (>60 ml/min/1.73 sqM); Albumin 1.9 g/dL (3.5-5.0); Albumin/Globulin Ratio 0.7; Alkaline Phosphatase 392 U/L (38-126); Anion Gap 8 mmol/L; Blood Urea Nitrogen 56 mg/dL (7-17); Carbon Dioxide 17 mmol/L (22-30); Chloride 108 mmol/L (98-107); Globulin 2.9 g/dL; Glucose 163 mg/dL (74-99); Non-African American GFR(CKD) 37 (>60 ml/min/1.73 sqM); Potassium 5.3 mmol/L (3.5-5.1); Sodium 133 mmol/L (137-145); Total Bilirubin 7.9 mg/dL (0.2-1.3); Total Protein 4.8 g/dL (6.3-8.2)
[2023-12-18 06:43] LABS: Anisocytosis Moderate; HGB 13.1 gm/dL (11.4-16.0); Hypochromasia Moderate; MCH 30.2 pg (25.0-35.0); MCHC 31.9 g/dL (31.0-37.0); MCV 94.5 fL (80.0-100.0); Macrocytosis Slight; Mean Platelet Volume 9.5; Poikilocytosis Slight; RBC 4.34 m/uL (3.80-5.40); RDW 22.7 % (11.5-15.5); WBC 22.6 k/uL (3.8-10.6)
[2023-12-18 06:49] LABS: Platelet Count 21 k/uL (150-450)
[2023-12-18 07:10] LABS: INR 2.2 (<1.2); Partial Thromboplastin Time 49.5 sec (22.0-30.0); Prothrombin Time 21.5 sec (10.0-12.5)
[2023-12-18 07:34] LABS: Calcium 6.3 mg/dL (8.4-10.2)
[2023-12-18 07:52] LABS: Lymphocytes # (M) 0.45 k/uL (1.0-4.8); Neutrophils # (M) 22.15 k/uL (1.3-7.7); Neutrophils % (M) 98 %; Nucleated Red Blood Cells 0 /100 WBC (0-0); Total Cells Counted 100
[2023-12-18] MEDS: SODIUM ZIRCONIUM CYCLOSILICATE 10 GM PACKET PO ONE (09:47)
[2023-12-18] MEDS: CALCIUM GLUCONATE IN NACL 1 GM in SALINE 1 100ML.BAG IVPB ONE (09:47)
[2023-12-18 10:02] LABS: Phosphorus 4.9 mg/dL (2.5-4.5)
[2023-12-18 10:15] LABS: Uric Acid 9.2 mg/dL (3.7-7.4)
--- NOTE | 2023-12-18 10:20 | XR ---
EXAMINATION TYPE: XR chest 1V DATE OF EXAM: 12/18/2023 COMPARISON: 10/20/2022 HISTORY: Shortness of breath TECHNIQUE: Single frontal view of the chest is obtained. FINDINGS: There has been interval removal of the left Mediport catheter. There has been insertion of a left sided PICC line the tip of which is in the SVC/RA junction. The lungs are clear of airspace/consolidative opacity or interstitial opacity. There is no pleural effusion or pneumothorax. The heart and pulmonary vasculature are normal. The osseous structures are grossly intact. IMPRESSION: No acute cardiopulmonary disease. IMPRESSION: No acute process.
[2023-12-18] MEDS: SODIUM CHLORIDE 0.9% 1,000 ML IV SCH (11:06)
[2023-12-18] MEDS: LACTATED RINGERS 1,000 ML IV SCH (11:28)
[2023-12-18] MEDS: HYDROmorphone 0.5 MG/0.5 ML SYRINGE IVP STA (12:22)
--- NOTE | 2023-12-18 13:38 | P.PN ---
Subjective Progress Note Date: 12/18/23 NAEON. No N/V. No worsening abdominal pain. No F/C. No SOB or CP. Admits to flatus no BM. Tolerating diet. Objective - Vital Signs Vital signs: Vital Signs Temp 97.8 F 12/18/23 11:42 Pulse 86 12/18/23 11:42 Resp 18 12/18/23 11:42 BP 107/70 12/18/23 11:42 Pulse Ox 93 L 12/18/23 11:42 FiO2 Intake & Output 12/17/23 12/18/23 12/18/23 18:59 06:59 18:59 Intake Total 60 Output Total 92 Balance 60 -92 Weight 137.5 kg 136 kg Intake: Blood Product 60 Pooled Cryoprecipitate 60 Unit [id number] Output: Post Void Residual 92 Other: Voiding Method Toilet Toilet Toilet # Voids 1 1 1 # Bowel Movements 1 1 - Exam GEN: AxO, NAD Pulm: non-labored respirations Abd: soft, non-tender, non-distended. No guarding/rebound/rigidity Incision: C/D/I no erythema or fluctuence appreciated Extrem: no edema seen - Labs CBC & Chem 7: 12/18/23 06:10 12/18/23 06:10 Labs: Abnormal Lab Results - Last 24 Hours (Table) 12/17/23 12/18/23 12/18/23 Range/Units 17:00 06:10 06:10 WBC 22.6 H (3.8-10.6) k/uL RDW 22.7 H (11.5-15.5) % Plt Count 21 L (150-450) k/uL Neutrophils # (Manual) 22.15 H (1.3-7.7) k/uL Lymphocytes # (Manual) 0.45 L (1.0-4.8) k/uL PT 22.2 H (10.0-12.5) sec INR 2.2 H (<1.2) APTT 53.8 H (22.0-30.0) sec Fibrinogen 170 L (200-500) mg/dL Sodium 133 L (137-145) mmol/L Potassium 5.3 H (3.5-5.1) mmol/L Chloride 108 H (98-107) mmol/L Carbon Dioxide 17 L (22-30) mmol/L BUN 56 H (7-17) mg/dL Creatinine 1.68 H (0.52-1.04) mg/dL Glucose 163 H (74-99) mg/dL Uric Acid (3.7-7.4) mg/dL Calcium 6.3 L* (8.4-10.2) mg/dL Phosphorus (2.5-4.5) mg/dL Total Bilirubin 7.9 H (0.2-1.3) mg/dL AST 442 H (14-36) U/L ALT 54 H (4-34) U/L Alkaline Phosphatase 392 H (38-126) U/L Total Protein 4.8 L (6.3-8.2) g/dL Albumin 1.9 L (3.5-5.0) g/dL 12/18/23 12/18/23 Range/Units 06:10 09:35 WBC (3.8-10.6) k/uL RDW (11.5-15.5) % Plt Count (150-450) k/uL Neutrophils # (Manual) (1.3-7.7) k/uL Lymphocytes # (Manual) (1.0-4.8) k/uL PT 21.5 H (10.0-12.5) sec INR 2.2 H (<1.2) APTT 49.5 H (22.0-30.0) sec Fibrinogen (200-500) mg/dL Sodium (137-145) mmol/L Potassium (3.5-5.1) mmol/L Chloride (98-107) mmol/L Carbon Dioxide (22-30) mmol/L BUN (7-17) mg/dL Creatinine (0.52-1.04) mg/dL Glucose (74-99) mg/dL Uric Acid 9.2 H (3.7-7.4) mg/dL Calcium (8.4-10.2) mg/dL Phosphorus 4.9 H (2.5-4.5) mg/dL Total Bilirubin (0.2-1.3) mg/dL AST (14-36) U/L ALT (4-34) U/L Alkaline Phosphatase (38-126) U/L Total Protein (6.3-8.2) g/dL Albumin (3.5-5.0) g/dL Assessment and Plan Assessment: Patient is a 43F with a PMH of metastatic breast CA, recent laparoscopic cholecystectomy who presents with abdominal pain. Plan: -Diet as tolerated -IVF hydration -PRN pain and nausea control -Care per primary -No acute surgical intervention Eduin Hernández MD General Surgery
[2023-12-18] MEDS: RASBURICASE 6 MG in SODIUM CHLORIDE 0.9% 46 ML IV ONE (14:01)
[2023-12-18] MEDS: DEXTROSE 5% IN WATER 1,000 ML with SODIUM BICARB (1 MEQ/ML) 150 ML IV SCH (14:37)
--- NOTE | 2023-12-18 19:01 | P.PN ---
Subjective Progress Note Date: 12/18/23 This is a pleasant 43-year-old female who presented to the emergency department with increased abdominal pain, postop nausea and vomiting with decreased oral intake and dehydration. Patient recently was hospitalized underwent liver biopsy along with acute cholecystectomy with general surgery Dr. Vuong last week. Patient reports she continued to have abdominal pain and difficulty tolerating oral intake and recently started developing nausea and vomiting again. Patient reports severe abdominal pain with no improvement. Patient reports having minimal bowel movements although is passing gas and is urinating with no difficulties. Labs reviewed on admission and had a D-dimer done which was significantly elevated underwent CTA with no suggestion of PE. Other labs reveal an elevated white count of 20.8, hemoglobin stable at 14.4, platelets significantly low at 17, INR 2.0, D-dimer above 34, sodium 135, potassium 3.7, creatinine 1.01, lactic acid was 2.0, total bili is 5.9 with an AST of 229 and ALT is 78 and alk phos is 365, lipase was 34. Urinalysis was negative and influenza/COVID/RSV are all negative as well. Patient was admitted for dehydration with general surgery as well as oncology on consult. Patient did undergo a liver biopsy last admission during the cholecystectomy which remains pending. Patient having an increasing white count this morning of 26 with no fevers noted and empiric antibiotics started and will consult infectious disease and appreciate input and recommendations. EKG shows sinus rhythm, abdominal pelvis CT shows postcholecystectomy changes with high density fluid in the pelvis around the uterus posteriorly representing possible blood products with n o evidence of pneumoperitoneum or organizing peripheral enhancing fluid collection to suggest abscess, persistent liver lesions as noted on MRI from 422 concerning of metastatic disease until proven otherwise and a trace bilateral pleural effusions. Patient is on room air and denies significant shortness of breath although does feel exerted with minimal exertion. Will add incentive spirometer. 12/15/2023 Patient is seen in follow-up this morning lethargic although arousable. Patient is scheduled to undergo a PICC line as oncology is following and discussing initiating Taxol chemotherapy while inpatient. Repeat ultrasound showing post cholecystectomy changes. Per oncology, liver biopsy that was performed last week is positive for metastatic breast cancer. Patient continues to report some nausea and vomiting with decreased oral intake and continued abdominal pain. Patient is having some generalized edema noted and was given a dose of Lasix. Patient's labs consistent with DIC and is status post cryoprecipitate. Oncology following closely. White count is trending down and patient is maintained on antibiotics. Infectious diseases following. Overall prognosis remains guarded. 12/16/2023 Patient seen and evaluated in follow-up status post PICC line placement with oncology following closely with plans of initiating chemotherapy while inpatient today. Multiple medical consultations following. Patient was initiated on antibiotics and white count is trending down. Infectious disease following and will be monitored closely off antibiotic therapy. Patient will receive Taxol and will be monitored closely. Patient also to receive platelets today. Continue with current regimen with oncology following closely. Encouraged to increase activity as tolerated. Patient reports generalized weakness although is getting up and walking to the bathroom. Patient does feel somewhat short of breath with exertion. Patient continues with generalized edema noted of the lower extremities as well as upper and abdomen. Will continue to encourage elevating lower extremities while at rest and may use Mark wraps or compression stockings to assist with swelling. Diet has been advanced per surgery and boost supplements also being added as patient reports continued abdominal pain with not much of an appetite. 12/17/2023 Patient is seen in follow-up today status post chemotherapy of Taxol. Patient reports to feeling significantly tired and weak with continued abdominal pain and nausea. Patient has been using Zofran and general surgery following as patient is recent status post lap cholecystectomy. No plans for surgical intervention at this time. Patient is receiving platelets today and other labs reviewed with oncology following closely undergoing further DIC treatment and workup. Infectious disease following as well and patient is being closely monitored off antibiotic therapy. White count remains elevated. Patient is afebrile. Patient is maintained on full liquids although reports not eating much and not tolerating. Patient has significant pain when attempting to eat or drink and associated with severe nausea. Encouraged patient to increase activity as tolerated and attempt to sit up in the chair. Ensure supplements being added. Patient appears jaundice and edematous. 0 12/18/2023 Patient is evaluated today on the medical floor. Patient is status post chemotherapy of Taxol. She continues to feel significantly weak and is requiring assistance to get up to the restroom. Patient states that she could possibly sit up in the chair however states that she is too weak to walk from the chair to the restroom. Patient continues to report significant nausea and abdominal discomfort. Patient did receive a dose of cryoprecipitate for fibrinogen level and today's blood work is showing to 15 with improvement in her PTT/PTT her INR remained stable at 2.2. Patient's calcium level was low today at 6.3, uric acid and phosphorus levels are elevated. Her creatinine has increased up to 1.68 with a sodium level of 133. Patient states that she does feel dehydrated being as she has had poor oral intake and is really unable to tolerate much fluids at this time. Her white blood cell count remains elevated at 22.6. Chest x-ray reveals no acute process. Review of systems: Constitutional: reports of extreme fatigue, no fever, or chills Cardiovascular: No reports of chest pain or palpitations Respiratory: reports of occasional shortness of breath GI: reports of nausea, no vomiting, or diarrhea : No reports of dysuria or retention Neurovascular: reports of generalized weakness and overall body swelling All medications have been reviewed PHYSICAL EXAMINATION: GENERAL: The patient is asleep but arousable, alert and oriented x3. Appears exhausted. Well developed, well nourished. Ill-appearing. Morbidly obese HEENT: Pupils are round and equally reacting to light. EOMI. No scleral icterus. No conjunctival pallor. Normocephalic, atraumatic. No pharyngeal erythema. No thyromegaly. CARDIOVASCULAR: S1 and S2 muffled PULMONARY: Chest is clear to auscultation, no wheezing or crackles. ABDOMEN: Soft, tender, nondistended, normoactive bowel sounds. No palpable organomegaly. Surgical sites noted on the right upper quadrant with some serous drainage and a previous blister which appears to be irritation from the tape with no significant redness or cellulitis noted MUSCULOSKELETAL: No joint swelling or deformity. EXTREMITIES: No cyanosis, clubbing, or pedal edema. Bilateral upper and lower extremities edematous NEUROLOGICAL: Gross neurological examination did not reveal any focal deficits. Diffusely weak SKIN: No rashes. Jaundice Assessment: Nausea vomiting, decreased oral intake with dehydration and continued abdominal pain, multifactorial, most likely secondary to metastatic disease Acute kidney injury prerenal secondary to dehydration patient has had poor oral intake will be started on IV fluids Hyperkalemia secondary to the acute kidney injury Hypovolemic hyponatremia due to dehydration Elevated uric acid patient will receive a dose of rasburicase as recommended by oncology Status post laparoscopic cholecystectomy last week Significant leukocytosis, multifactorial, likely reactive, trending down Status post liver biopsy which is positive for 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 Patient received a PICC line and was given Taxol chemotherapy. Oncology following ordering additional platelets White count trending down and will monitor off antibiotic therapy. Infectious diseases following closely. Undergoing DIC monitoring, labs are consistent with DIC and is status post cryoprecipitate. Repeat labs ordered every 12 hours Home medications reviewed and resumed as appropriate Encourage incentive spirometer use at least 10 times every hour while awake Patient having some generalized edema noted throughout upper and lower extremities and abdomen. Recommend Mark wraps or compression stockings to bilateral lower extremities and elevating and while at rest. Patient is extremely edematous although is most likely dehydrated, concern for third spacing. Patient appears jaundiced with elevated bilirubin and liver functions. Patient will be started on IV fluids and repeat labs in the morning Will continue with pain management and antinausea medications. Encouraged oral intake Overall prognosis is extremely guarded at this time. Condition is critical The impression and plan of care has been dictated by Kimberly Lehman, Nurse Practitioner as directed. Dr. Leeanne MD I have performed a history and physical examination and medical decision making of this patient, discussed the same with the dictator, and agree with the dictators assessment and plan as written, documented as a scribe. Based on total visit time, I have performed more than 50% of this visit. Objective - Vital Signs Vital signs: Vital Signs Temp 97.8 F 12/18/23 11:42 Pulse 86 12/18/23 11:42 Resp 18 12/18/23 11:42 BP 107/70 12/18/23 11:42 Pulse Ox 93 L 12/18/23 11:42 FiO2 Intake & Output 12/17/23 12/18/23 12/18/23 18:59 06:59 18:59 Intake Total 60 660 Output Total 92 Balance 60 568 Weight 137.5 kg 136 kg Intake: Intake, IV Titration 660 Amount Dextrose 5% in Water 1, 260 000 ml @ 130 mls/hr IV . Q8H51M KARLI with Sodium Bicarb (1 Meq/ml) 150 ml Rx#:[id number] Lactated Ringers 1,000 ml 400 @ 100 mls/hr IV .Q10H KARLI Rx#:[id number] Blood Product 60 Pooled Cryoprecipitate 60 Unit [id number] Output: Post Void Residual 92 Other: Voiding Method Toilet Toilet Toilet # Voids 1 1 1 # Bowel Movements 1 1 - Labs CBC & Chem 7: 12/18/23 06:10 12/18/23 06:10 Labs: Abnormal Lab Results - Last 24 Hours (Table) 12/18/23 12/18/23 12/18/23 Range/Units 06:10 06:10 06:10 WBC 22.6 H (3.8-10.6) k/uL RDW 22.7 H (11.5-15.5) % Plt Count 21 L (150-450) k/uL Neutrophils # (Manual) 22.15 H (1.3-7.7) k/uL Lymphocytes # (Manual) 0.45 L (1.0-4.8) k/uL PT 21.5 H (10.0-12.5) sec INR 2.2 H (<1.2) APTT 49.5 H (22.0-30.0) sec Sodium 133 L (137-145) mmol/L Potassium 5.3 H (3.5-5.1) mmol/L Chloride 108 H (98-107) mmol/L Carbon Dioxide 17 L (22-30) mmol/L BUN 56 H (7-17) mg/dL Creatinine 1.68 H (0.52-1.04) mg/dL Glucose 163 H (74-99) mg/dL Uric Acid (3.7-7.4) mg/dL Calcium 6.3 L* (8.4-10.2) mg/dL Phosphorus (2.5-4.5) mg/dL Total Bilirubin 7.9 H (0.2-1.3) mg/dL AST 442 H (14-36) U/L ALT 54 H (4-34) U/L Alkaline Phosphatase 392 H (38-126) U/L Total Protein 4.8 L (6.3-8.2) g/dL Albumin 1.9 L (3.5-5.0) g/dL /12/07 Range/Units 09:35 WBC (3.8-10.6) k/uL RDW (11.5-15.5) % Plt Count (150-450) k/uL Neutrophils # (Manual) (1.3-7.7) k/uL Lymphocytes # (Manual) (1.0-4.8) k/uL PT (10.0-12.5) sec INR (<1.2) APTT (22.0-30.0) sec Sodium (137-145) mmol/L Potassium (3.5-5.1) mmol/L Chloride (98-107) mmol/L Carbon Dioxide (22-30) mmol/L BUN (7-17) mg/dL Creatinine (0.52-1.04) mg/dL Glucose (74-99) mg/dL Uric Acid 9.2 H (3.7-7.4) mg/dL Calcium (8.4-10.2) mg/dL Phosphorus 4.9 H (2.5-4.5) mg/dL Total Bilirubin (0.2-1.3) mg/dL AST (14-36) U/L ALT (4-34) U/L Alkaline Phosphatase (38-126) U/L Total Protein (6.3-8.2) g/dL Albumin (3.5-5.0) g/dL Assessment and Plan Time with Patient: Less than 30
[2023-12-19] MEDS: HYDROmorphone 1 MG/ML 1 ML SYRINGE IVP STA (01:50)
[2023-12-19 06:57] LABS: INR 2.2 (<1.2); Prothrombin Time 21.9 sec (10.0-12.5)
[2023-12-19 07:09] LABS: Anisocytosis Moderate; HCT 39.7 % (34.0-46.0); HGB 12.7 gm/dL (11.4-16.0); Hypochromasia Moderate; MCH 29.9 pg (25.0-35.0); MCV 93.6 fL (80.0-100.0); Macrocytosis Slight; Mean Platelet Volume 7.8; Poikilocytosis Slight; RBC 4.24 m/uL (3.80-5.40); RDW 21.9 % (11.5-15.5)
[2023-12-19 08:13] LABS: Lymphocytes # (M) 0.42 k/uL (1.0-4.8); Neutrophils # (M) 20.58 k/uL (1.3-7.7); Neutrophils % (M) 98 %; Nucleated Red Blood Cells 0 /100 WBC (0-0); Total Cells Counted 100
[2023-12-19 08:20] LABS: Howell-Jolly Bodies Present; Platelet Count 12 k/uL (150-450)
[2023-12-19 08:22] LABS: RBC Fragments Present
[2023-12-19 09:47] LABS: Magnesium 2.4 mg/dL (1.5-2.4); Phosphorus 5.1 mg/dL (2.4-5.1)
[2023-12-19 09:49] LABS: ALT 56 U/L (8-44); AST 290 U/L (13-35); Albumin/Globulin Ratio 0.91 Ratio (1.60-3.17); Alkaline Phosphatase 332 U/L (41-126); BUN/Creat Ratio 35.45 Ratio (12.00-20.00); Blood Urea Nitrogen 70.9 mg/dL (9.0-27.0); Calcium 6.7 mg/dL (8.7-10.3); Carbon Dioxide 19.5 mmol/L (21.6-31.8); Chloride 101 mmol/L (96-109); Globulin 2.2 g/dL (1.6-3.3); Glucose 179 mg/dL (70-110); Potassium 5.3 mmol/L (3.5-5.5); Sodium 135 mmol/L (135-145); Total Bilirubin 6.3 mg/dL (0.3-1.2); Total Protein 4.2 g/dL (6.2-8.2)
--- NOTE | 2023-12-19 10:43 | P.NPCON ---
History of Present Illness - Reason for Consult acute renal failure - History of Present Illness Reason for consultation: Acute kidney injury History of present illness: Patient is a 43-year-old female seen in renal consultation for acute kidney injury. Patient's creatinine this admission has been as low as 0.8-0.9 and is up to 2.0 today. Patient has history of breast cancer and completed chemotherapy in March 2023. She underwent liver biopsy which showed metastatic breast cancer and was started on Taxol December 16, 2023. Patient also had cholecystectomy last week. She is currently receiving IV fluids which were changed to bicarb drip last night. She has been voiding but in small amounts. Does admit to intermittent diarrhea which she states started after her gallbladder surgery. She denies use of nonsteroidals. Denies family history of renal disease. Denies history of diabetes. Denies history of coronary artery disease. Oral intake is poor. She is being followed by oncology. Vital signs are stable. General: No acute distress. HEENT: Head exam is unremarkable. LUNGS: No audible rhonchi or wheezes. HEART: Rate and Rhythm are regular. ABDOMEN: Obese, nontender. EXTREMITITES: 1+ edema. Past Medical History Past Medical History: Cancer Additional Past Medical History / Comment(s): new dx. breast cancer, chemo induc ed Adrenal insufficiency History of Any Multi-Drug Resistant Organisms: None Reported Past Surgical History: Breast Surgery, Tonsillectomy Additional Past Surgical History / Comment(s): bilateral mastectomy May 13 2023 Past Anesthesia/Blood Transfusion Reactions: No Reported Reaction Past Psychological History: No Psychological Hx Reported Smoking Status: Never smoker Past Alcohol Use History: None Reported Past Drug Use History: None Reported - Past Family History Father Family Medical History: Cancer Additional Family Medical History / Comment(s): brain, paternal grandmother breast cancer Medications and Allergies Home Medications Medication Instructions Recorded Confirmed Type Ergocalciferol [Vitamin D2 (1250 1,250 mcg PO QMONTHLY 10/15/22 12/13/23 History Mcg = 54444 Iu)] Hydrocortisone [Cortef] 10 mg PO DAILY@1800 12/06/23 12/13/23 History Hydrocortisone [Cortef] 20 mg PO DAILY@1300 12/06/23 12/13/23 History cefUROXime axetiL [Ceftin] 500 mg PO BID 7 Days #14 tab 12/11/23 12/13/23 Rx metroNIDAZOLE [Flagyl] 500 mg PO TID 7 Days #21 tab 12/11/23 12/13/23 Rx Allergies Allergy/AdvReac Type Severity Reaction Status Date / Time sulfamethoxazole Allergy Rash/Hives Verified 12/13/23 18:08 [From Bactrim] trimethoprim [From Bactrim] Allergy Rash/Hives Verified 12/13/23 18:08 Physical Exam Vitals: Vital Signs Temp Pulse Resp BP Pulse Ox 12/19/23 07:25 92 16 93/64 95 12/19/23 01:43 97.2 F L 90 20 116/76 92 L 12/18/23 19:53 97.7 F 87 18 107/68 94 L 12/18/23 11:42 97.8 F 86 18 107/70 93 L Intake and Output 12/18/23 12/19/23 12/19/23 22:59 06:59 14:59 Intake Total 660 2100 Output Total 100 Balance 660 2100 -100 Intake: Intake, IV Titration 660 1560 Amount Dextrose 5% in Water 1, 260 1560 000 ml @ 130 mls/hr IV . Q8H51M KARLI with Sodium Bicarb (1 Meq/ml) 150 ml Rx#:[id number] Lactated Ringers 1,000 ml 400 @ 100 mls/hr IV .Q10H KARLI Rx#:[id number] Oral 540 Output: Urine 100 Other: Voiding Method Toilet Toilet # Voids 1 1 Weight 138 kg Results - Lab Results Most recent lab results Calcium 6.7 mg/dL (8.7-10.3) L 12/19/23 06:20 Phosphorus 5.1 mg/dL (2.4-5.1) 12/19/23 06:20 Magnesium 2.4 mg/dL (1.5-2.4) 12/19/23 06:20 12/19/23 06:10 12/19/23 06:20 Assessment and Plan Plan: Assessment: 1. 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 Elevated uric acid level, phosphorus level, mild hyperkalemia as well as hypocalcemia all suggestive of tumor lysis syndrome. Patient started chemotherapy December 16, 2023. Status post rasburicase December 18, 2023. Received IV contrast December 13, 2023 for CTA. Baseline creatinine 0.8-0.9 and is up to 2.0 today. Rule out urinary retention. 2. Metastatic breast cancer being followed by oncology. Patient has history of bilateral mastectomies and completed chemo in March 2023. 3. Metabolic acidosis secondary to acute kidney injury and IV fluids. Improving with bicarb drip. 4. DIC being followed by oncology. 5. Recent laparoscopic cholecystectomy December 09, 2023. 6. History of adrenal sufficiency maintained on Solu-Cortef. Plan: Maintain bicarb drip. Increase rate to 150 cc an hour. Check bladder scan to rule out urinary retention. Check renal ultrasound. Strict I's and O's. Discussed with RN. Continue to monitor renal function and urine output. Continue to assess daily for need for renal placement therapy. Avoid nephrotoxins. Lokelma 10 g once today. Thank you for the consultation. I will continue to follow the patient with you during her hospital stay.
[2023-12-19] MEDS: SODIUM ZIRCONIUM CYCLOSILICATE 10 GM PACKET PO ONE (11:48)
[2023-12-19] MEDS: MORPHINE SULFATE 2 MG/ML SYRINGE IVP PRN (13:09)
--- NOTE | 2023-12-19 13:35 | P.PN ---
Progress Note - Text Progress Note Date: 12/19/23 Ms. Jones is a very pleasant 43-year-old female with a an unfortunate history of triple negative metastatic breast cancer who is here for abdominal pain, workup consistent with malignancy progression contributing to her symptoms. She was started on palliative Taxol while inpatient. She does appear jaundice however no acute distress. Alert and oriented x 3. Appears down. Some eccymosis on her extremities and anasarca. -Liver failure due to liver mets, status post Taxol, bilirubin and transaminases slightly improved today, continue to monitor for now -MARIANO, worsening renal function for the last couple days, nephrology consulted, concern for hepatorenal syndrome versus tumor lysis. She received rasburicase yesterday with uric acid improving from 9-5. Hyperkalemia stable, calcium slightly improved, phosphorus worsened however. -Thrombocytopenia and DIC, likely due to underlying malignancy however difficult to determine if she has true DIC or decompensated liver failure causing her coagulopathy including high PT, PTT, and low fibrinogen. Plan on supportive transfusion to maintain her platelets above 30 to ensure she does not bleed; monitor for thrombosis and bleeding; transfuse cryo to maintain fibrinogen above 150. She does need platelet transfusion today however hold off on cryoprecipitate. -Leukocytosis likely reactive due to malignancy and acute illness Discussed with patient and she is agreeable to plan. All of her questions were answered.
[2023-12-19] MEDS: ALPRAZolam 0.25 MG TAB PO PRN (14:42)
--- NOTE | 2023-12-19 15:38 | P.PN ---
Subjective Progress Note Date: 12/19/23 This is a pleasant 43-year-old female who presented to the emergency department with increased abdominal pain, postop nausea and vomiting with decreased oral intake and dehydration. Patient recently was hospitalized underwent liver biopsy along with acute cholecystectomy with general surgery Dr. Vuong last week. Patient reports she continued to have abdominal pain and difficulty tolerating oral intake and recently started developing nausea and vomiting again. Patient reports severe abdominal pain with no improvement. Patient reports having minimal bowel movements although is passing gas and is urinating with no difficulties. Labs reviewed on admission and had a D-dimer done which was significantly elevated underwent CTA with no suggestion of PE. Other labs reveal an elevated white count of 20.8, hemoglobin stable at 14.4, platelets significantly low at 17, INR 2.0, D-dimer above 34, sodium 135, potassium 3.7, creatinine 1.01, lactic acid was 2.0, total bili is 5.9 with an AST of 229 and ALT is 78 and alk phos is 365, lipase was 34. Urinalysis was negative and influenza/COVID/RSV are all negative as well. Patient was admitted for dehydration with general surgery as well as oncology on consult. Patient did undergo a liver biopsy last admission during the cholecystectomy which remains pending. Patient having an increasing white count this morning of 26 with no fevers noted and empiric antibiotics started and will consult infectious disease and appreciate input and recommendations. EKG shows sinus rhythm, abdominal pelvis CT shows postcholecystectomy changes with high density fluid in the pelvis around the uterus posteriorly representing possible blood products with n o evidence of pneumoperitoneum or organizing peripheral enhancing fluid collection to suggest abscess, persistent liver lesions as noted on MRI from 422 concerning of metastatic disease until proven otherwise and a trace bilateral pleural effusions. Patient is on room air and denies significant shortness of breath although does feel exerted with minimal exertion. Will add incentive spirometer. 12/15/2023 Patient is seen in follow-up this morning lethargic although arousable. Patient is scheduled to undergo a PICC line as oncology is following and discussing initiating Taxol chemotherapy while inpatient. Repeat ultrasound showing post cholecystectomy changes. Per oncology, liver biopsy that was performed last week is positive for metastatic breast cancer. Patient continues to report some nausea and vomiting with decreased oral intake and continued abdominal pain. Patient is having some generalized edema noted and was given a dose of Lasix. Patient's labs consistent with DIC and is status post cryoprecipitate. Oncology following closely. White count is trending down and patient is maintained on antibiotics. Infectious diseases following. Overall prognosis remains guarded. 12/16/2023 Patient seen and evaluated in follow-up status post PICC line placement with oncology following closely with plans of initiating chemotherapy while inpatient today. Multiple medical consultations following. Patient was initiated on antibiotics and white count is trending down. Infectious disease following and will be monitored closely off antibiotic therapy. Patient will receive Taxol and will be monitored closely. Patient also to receive platelets today. Continue with current regimen with oncology following closely. Encouraged to increase activity as tolerated. Patient reports generalized weakness although is getting up and walking to the bathroom. Patient does feel somewhat short of breath with exertion. Patient continues with generalized edema noted of the lower extremities as well as upper and abdomen. Will continue to encourage elevating lower extremities while at rest and may use Mark wraps or compression stockings to assist with swelling. Diet has been advanced per surgery and boost supplements also being added as patient reports continued abdominal pain with not much of an appetite. 12/17/2023 Patient is seen in follow-up today status post chemotherapy of Taxol. Patient reports to feeling significantly tired and weak with continued abdominal pain and nausea. Patient has been using Zofran and general surgery following as patient is recent status post lap cholecystectomy. No plans for surgical intervention at this time. Patient is receiving platelets today and other labs reviewed with oncology following closely undergoing further DIC treatment and workup. Infectious disease following as well and patient is being closely monitored off antibiotic therapy. White count remains elevated. Patient is afebrile. Patient is maintained on full liquids although reports not eating much and not tolerating. Patient has significant pain when attempting to eat or drink and associated with severe nausea. Encouraged patient to increase activity as tolerated and attempt to sit up in the chair. Ensure supplements being added. Patient appears jaundice and edematous. 0 12/18/2023 Patient is evaluated today on the medical floor. Patient is status post chemotherapy of Taxol. She continues to feel significantly weak and is requiring assistance to get up to the restroom. Patient states that she could possibly sit up in the chair however states that she is too weak to walk from the chair to the restroom. Patient continues to report significant nausea and abdominal discomfort. Patient did receive a dose of cryoprecipitate for fibrinogen level and today's blood work is showing to 15 with improvement in her PTT/PTT her INR remained stable at 2.2. Patient's calcium level was low today at 6.3, uric acid and phosphorus levels are elevated. Her creatinine has increased up to 1.68 with a sodium level of 133. Patient states that she does feel dehydrated being as she has had poor oral intake and is really unable to tolerate much fluids at this time. Her white blood cell count remains elevated at 22.6. Chest x-ray reveals no acute process. 12/19/2023 Patient evaluated in follow up today. Continues to report abdominal discomfort right upper quadrant and also lower back pain. Patient has become increasingly weak and having difficulty with ambulation requiring multiple staff members to help her up to the restroom. Patient has been increasingly restless throughout the day and states she is unable to get comfortable in the bed. She is also anxious. Wanting the IV fluids turned down as she reports feeling puffy and fluid overloaded. Concern for tumor lysis syndrome and received a dose of rasburicase yesterday. Nephrology was consulted. Her creatinine continues to worsen today BUN is 70.9 and creatinine 2.0. Patient was found to have significant urinary retention with over 2L in the urinary bladder and an indwelling catheter has been placed. LFTs remain elevated. Sodium improved to 135, potassium 5.3 today. Review of systems: Constitutional: reports of extreme fatigue, no fever, or chills Cardiovascular: No reports of chest pain or palpitations Respiratory: reports of occasional shortness of breath GI: reports of nausea, no vomiting, or diarrhea : No reports of dysuria or retention Neurovascular: reports of generalized weakness and overall body swelling All medications have been reviewed PHYSICAL EXAMINATION: GENERAL: The patient is asleep but arousable, alert and oriented x3. Appears exhausted. Well developed, well nourished. Ill-appearing. Morbidly obese HEENT: Pupils are round and equally reacting to light. EOMI. No scleral icterus. No conjunctival pallor. Normocephalic, atraumatic. No pharyngeal erythema. No thyromegaly. CARDIOVASCULAR: S1 and S2 muffled PULMONARY: Chest is clear to auscultation, no wheezing or crackles. ABDOMEN: Soft, tender, nondistended, normoactive bowel sounds. No palpable organomegaly. Surgical sites noted on the right upper quadrant with some serous drainage and a previous blister which appears to be irritation from the tape with no significant redness or cellulitis noted MUSCULOSKELETAL: No joint swelling or deformity. EXTREMITIES: No cyanosis, clubbing, or pedal edema. Bilateral upper and lower extremities edematous NEUROLOGICAL: Gross neurological examination did not reveal any focal deficits. Diffusely weak SKIN: No rashes. Jaundice Assessment: Nausea vomiting, decreased oral intake with dehydration and continued abdominal pain, multifactorial, most likely secondary to metastatic disease Acute kidney injury prerenal secondary to dehydration patient has had poor oral intake will be started on IV fluids, there is also concern for tumor lysis syndrome. Nephrology was consulted. 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 History of known breast cancer status post bilateral mastectomy in [place] in the summer 2022 with radiation treatment completed in August Chemotherapy induced adrenal insufficiency Morbid obesity with a BMI of 40.7 GI prophylaxis DVT prophylaxis Full code Plan: Patient was admitted with continued abdominal pain with nausea and vomiting with general surgery following as patient is recent laparoscopic cholecystectomy on 12/09/2023. 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 Patient received a PICC line and was given Taxol chemotherapy. Oncology following ordering additional platelets White count trending down and will monitor off antibiotic therapy. Infectious diseases following closely. Undergoing DIC monitoring, labs are consistent with DIC and is status post cryoprecipitate. Repeat labs ordered every 12 hours Home medications reviewed and resumed as appropriate Encourage incentive spirometer use at least 10 times every hour while awake Patient having some generalized edema noted throughout upper and lower extremities and abdomen. Recommend Mark wraps or compression stockings to bilateral lower extremities and elevating and while at rest. Patient is extremely edematous although is most likely dehydrated, concern for third spacing. Patient appears jaundiced with elevated bilirubin and liver functions. Nephrology following and has started the patient on bicarb gtt. Lokelma give for the hyperkalemia. Repeat labs in the AM. Physical therapy and occupational therapy consulted as patient has had prolonged hospital stay and increasing weakness. Will continue with pain management and antinausea medications. Encouraged oral intake Overall prognosis is extremely guarded at this time. Condition is critical The impression and plan of care has been dictated by Kimberly Lehman, Nurse Practitioner as directed. Dr. Leeanne MD I have performed a history and physical examination and medical decision making of this patient, discussed the same with the dictator, and agree with the dictators assessment and plan as written, documented as a scribe. Based on total visit time, I have performed more than 50% of this visit. Objective - Vital Signs Vital signs: Vital Signs Temp 97.2 F L 12/19/23 01:43 Pulse 92 12/19/23 07:25 Resp 16 12/19/23 07:25 BP 93/64 12/19/23 07:25 Pulse Ox 95 12/19/23 07:25 FiO2 Intake & Output 12/18/23 12/19/23 12/19/23 18:59 06:59 18:59 Intake Total 660 2100 Output Total 92 1085 Balance 568 2100 -1085 Weight 138 kg Intake: Intake, IV Titration 660 1560 Amount Dextrose 5% in Water 1, 260 1560 000 ml @ 150 mls/hr IV . Q7H40M KARLI with Sodium Bicarb (1 Meq/ml) 150 ml Rx#:[id number] Lactated Ringers 1,000 ml 400 @ 100 mls/hr IV .Q10H KARLI Rx#:[id number] Oral 540 Output: Urine 550 Post Void Residual 92 535 Other: Voiding Method Toilet Toilet Toilet # Voids 1 1 1 # Bowel Movements 1 - Labs CBC & Chem 7: 12/19/23 06:10 12/19/23 06:20 Labs: Abnormal Lab Results - Last 24 Hours (Table) 12/19/23 12/19/23 12/19/23 Range/Units 06:10 06:20 06:20 WBC 21.0 H (3.8-10.6) k/uL RDW 21.9 H (11.5-15.5) % Plt Count 12 L* (150-450) k/uL Neutrophils # (Manual) 20.58 H (1.3-7.7) k/uL Lymphocytes # (Manual) 0.42 L (1.0-4.8) k/uL PT 21.9 H (10.0-12.5) sec INR 2.2 H (<1.2) APTT 52.0 H (22.0-30.0) sec Fibrinogen 177 L (200-500) mg/dL Carbon Dioxide 19.5 L (21.6-31.8) mmol/L Anion Gap 14.50 H (4.00-12.00) mmol/L BUN 70.9 H (9.0-27.0) mg/dL Creatinine 2.0 H (0.6-1.5) mg/dL Est GFR (CKD-EPI) 31 L (>=60) BUN/Creatinine Ratio 35.45 H (12.00-20.00) Ratio Glucose 179 H (70-110) mg/dL Calcium 6.7 L (8.7-10.3) mg/dL Total Bilirubin 6.3 H (0.3-1.2) mg/dL AST 290 H (13-35) U/L ALT 56 H (8-44) U/L Alkaline Phosphatase 332 H (41-126) U/L Total Protein 4.2 L (6.2-8.2) g/dL Albumin 2.0 L (3.8-4.9) g/dL Albumin/Globulin Ratio 0.91 L (1.60-3.17) Ratio Microbiology - Last 24 Hours (Table) 12/13/23 19:21 Blood Culture - Final Blood 12/13/23 19:05 Blood Culture - Final Blood Assessment and Plan Time with Patient: Greater than 30
--- NOTE | 2023-12-19 17:14 | P.PN ---
Subjective Progress Note Date: 12/19/23 Patient and reports that she has intractable nausea. She has a Perry catheter. She is on neutropenic precautions. She reports new bilateral lower abdominal pain. Urine is dark. Abdomen: No peritonitis. Tender lower abdomen. Genitourinary: Perry with dark urine. Assessment: 1. New bilateral lower abdominal pain. 2. Intractable nausea 3. Dehydration Plan: 1. Recommend IV fluid bolus due to chronic nausea and presence of dehydration with dark urine. 2. Will add scopolamine patch for intractable nausea Objective - Vital Signs Vital signs: Vital Signs Temp 97.7 F 12/19/23 16:52 Pulse 95 12/19/23 16:52 Resp 16 12/19/23 16:52 BP 115/77 12/19/23 16:52 Pulse Ox 98 12/19/23 16:44 FiO2 Intake & Output 12/18/23 12/19/23 12/19/23 18:59 06:59 18:59 Intake Total 660 2100 0 Output Total 92 1085 Balance 568 2100 -1085 Weight 138 kg Intake: Intake, IV Titration 660 1560 Amount Dextrose 5% in Water 1, 260 1560 000 ml @ 150 mls/hr IV . Q7H40M KARLI with Sodium Bicarb (1 Meq/ml) 150 ml Rx#:[id number] Lactated Ringers 1,000 ml 400 @ 100 mls/hr IV .Q10H KARLI Rx#:[id number] Oral 540 Blood Product 0 Unit 0 Output: Urine 550 Post Void Residual 92 535 Other: Voiding Method Toilet Toilet Toilet # Voids 1 1 1 # Bowel Movements 1 - Labs CBC & Chem 7: 12/19/23 06:10 12/19/23 16:15 Labs: Abnormal Lab Results - Last 24 Hours (Table) 12/19/23 12/19/23 12/19/23 Range/Units 06:10 06:20 06:20 WBC 21.0 H (3.8-10.6) k/uL RDW 21.9 H (11.5-15.5) % Plt Count 12 L* (150-450) k/uL Neutrophils # (Manual) 20.58 H (1.3-7.7) k/uL Lymphocytes # (Manual) 0.42 L (1.0-4.8) k/uL PT 21.9 H (10.0-12.5) sec INR 2.2 H (<1.2) APTT 52.0 H (22.0-30.0) sec Fibrinogen 177 L (200-500) mg/dL Carbon Dioxide 19.5 L (21.6-31.8) mmol/L Anion Gap 14.50 H (4.00-12.00) mmol/L BUN 70.9 H (9.0-27.0) mg/dL Creatinine 2.0 H (0.6-1.5) mg/dL Est GFR (CKD-EPI) 31 L (>=60) BUN/Creatinine Ratio 35.45 H (12.00-20.00) Ratio Glucose 179 H (70-110) mg/dL Calcium 6.7 L (8.7-10.3) mg/dL Total Bilirubin 6.3 H (0.3-1.2) mg/dL AST 290 H (13-35) U/L ALT 56 H (8-44) U/L Alkaline Phosphatase 332 H (41-126) U/L Total Protein 4.2 L (6.2-8.2) g/dL Albumin 2.0 L (3.8-4.9) g/dL Albumin/Globulin Ratio 0.91 L (1.60-3.17) Ratio Microbiology - Last 24 Hours (Table) 12/13/23 19:21 Blood Culture - Final Blood 12/13/23 19:05 Blood Culture - Final Blood
[2023-12-19] MEDS: MORPHINE SULFATE 4 MG/ML SYRINGE IVP PRN (17:49)
[2023-12-19] MEDS: SCOPOLAMINE 1 MG/72 HR PATCH TRANSDERM STA (17:49)
[2023-12-19] MEDS: SODIUM CHLORIDE 0.9% 2,000 ML IV ONE (18:06)
--- NOTE | 2023-12-19 18:19 | US ---
EXAMINATION TYPE: US kidneys/renal and bladder DATE OF EXAM: 12/19/2023 Exam done portable COMPARISON: CT 2023 CLINICAL INDICATION: Female, 43 years old with history of benton; EXAM MEASUREMENTS: Right Kidney: 12.3 x 4.9 x 6.3 cm Left Kidney: 11.4 x 4.8 x 5.4 cm Difficult and limited study due to patient body habitus Right Kidney: wnl Left Kidney: visualized portions wnl, inferior pole limited by overlying bowel gas Bladder: not seen Abdominal ascites There is no evidence for hydronephrosis at this point in time. No nephrolithiasis is seen. No mani s are identified. IMPRESSION: 1. No evidence of obstructive uropathy. 2. Trace intra-abdominal ascites.
--- NOTE | 2023-12-19 18:56 | P.PN ---
Subjective Progress Note Date: 12/18/23 Principal diagnosis: Reason for follow-up is a leukocytosis and the question of infection Patient is a 43-year-old female with a past medical history significant for breast cancer status post bilateral mastectomy April 2023 followed by chemotherapy patient was recently admitted to this facility did have a right upper quadrant pain elevated white count and concern for cholecystitis in this patient who is status post laparoscopic cholecystectomy along with laparoscopic biopsy of the liver lesion which apparently are suggestive of metastatic breast cancer. Patient now presenting back to the hospital concerning for abdominal pain nausea and vomiting and weakness, patient did not have any fever did have elevated white count CT abdominal pelvis with polyp cholecystectomy changes and fluid in the pelvic around the uterus no evidence of pneumoperitoneum. On today's evaluation that is 12/18/2023,the patient denies any fever or any chills, patient is breathing comfortably on room air, the patient denies chest pain shortness of breath and no significant cough, patient has been complaining of some nausea but no vomiting abdominal pain is about the same no diarrhea Patient white count is slightly down to 2.6 with a creatinine of 1.68 Objective - Vital Signs Vital signs: Vital Signs Temp 97.8 F 12/18/23 11:42 Pulse 86 12/18/23 11:42 Resp 18 12/18/23 11:42 BP 107/70 12/18/23 11:42 Pulse Ox 93 L 12/18/23 11:42 FiO2 Intake & Output 12/17/23 12/18/23 12/18/23 18:59 06:59 18:59 Intake Total 60 Output Total 92 Balance 60 -92 Weight 137.5 kg 136 kg Intake: Blood Product 60 Pooled Cryoprecipitate 60 Unit [id number] Output: Post Void Residual 92 Other: Voiding Method Toilet Toilet Toilet # Voids 1 1 1 # Bowel Movements 1 1 - Exam GENERAL DESCRIPTION: Middle-aged female lying in bed in no distress RESPIRATORY SYSTEM: Unlabored breathing , decreased breath sounds at bases HEART: S1 S2 regular rate and rhythm , ABDOMEN: Soft , no tenderness EXTREMITIES: No edema feet - Labs CBC & Chem 7: 12/19/23 06:10 12/19/23 16:15 Labs: Abnormal Lab Results - Last 24 Hours (Table) 12/17/23 12/18/23 12/18/23 Range/Units 17:00 06:10 06:10 WBC 22.6 H (3.8-10.6) k/uL RDW 22.7 H (11.5-15.5) % Plt Count 21 L (150-450) k/uL Neutrophils # (Manual) 22.15 H (1.3-7.7) k/uL Lymphocytes # (Manual) 0.45 L (1.0-4.8) k/uL PT 22.2 H (10.0-12.5) sec INR 2.2 H (<1.2) APTT 53.8 H (22.0-30.0) sec Fibrinogen 170 L (200-500) mg/dL Sodium 133 L (137-145) mmol/L Potassium 5.3 H (3.5-5.1) mmol/L Chloride 108 H (98-107) mmol/L Carbon Dioxide 17 L (22-30) mmol/L BUN 56 H (7-17) mg/dL Creatinine 1.68 H (0.52-1.04) mg/dL Glucose 163 H (74-99) mg/dL Uric Acid (3.7-7.4) mg/dL Calcium 6.3 L* (8.4-10.2) mg/dL Phosphorus (2.5-4.5) mg/dL Total Bilirubin 7.9 H (0.2-1.3) mg/dL AST 442 H (14-36) U/L ALT 54 H (4-34) U/L Alkaline Phosphatase 392 H (38-126) U/L Total Protein 4.8 L (6.3-8.2) g/dL Albumin 1.9 L (3.5-5.0) g/dL 24 12/18/23 Range/Units 06:10 09:35 WBC (3.8-10.6) k/uL RDW (11.5-15.5) % Plt Count (150-450) k/uL Neutrophils # (Manual) (1.3-7.7) k/uL Lymphocytes # (Manual) (1.0-4.8) k/uL PT 21.5 H (10.0-12.5) sec INR 2.2 H (<1.2) APTT 49.5 H (22.0-30.0) sec Fibrinogen (200-500) mg/dL Sodium (137-145) mmol/L Potassium (3.5-5.1) mmol/L Chloride (98-107) mmol/L Carbon Dioxide (22-30) mmol/L BUN (7-17) mg/dL Creatinine (0.52-1.04) mg/dL Glucose (74-99) mg/dL Uric Acid 9.2 H (3.7-7.4) mg/dL Calcium (8.4-10.2) mg/dL Phosphorus 4.9 H (2.5-4.5) mg/dL Total Bilirubin (0.2-1.3) mg/dL AST (14-36) U/L ALT (4-34) U/L Alkaline Phosphatase (38-126) U/L Total Protein (6.3-8.2) g/dL Albumin (3.5-5.0) g/dL Assessment and Plan (1) Leukocytosis Current Visit: No Status: Acute Code(s): D72.829 - ELEVATED WHITE BLOOD CELL COUNT, UNSPECIFIED SNOMED Code(s): 679436185 Plan: 1patient presented hospital with abdominal pain nausea and vomiting in this patient who did have a history of metastatic breast cancer with recent laparoscopic cholecystectomy as well as laparoscopic biopsy of the liver lesion now with abnormal CT abdominal pelvis concerning for fluid in the lower pelvis, patient case has been discussed in detail with the general surgery no clinically suspicious for biliary leak or need for HIDA scan also discussed with Dr. Caballero from hematology oncology this morning and is assessment is presentation is mostly of metastatic breast cancer, patient did not have any fever during this admission patient antibiotic has been discontinued as of 12/16/2023 2-patient remains to be afebrile white count slightly trending down culture has been negative he will monitor closely off antibiotic therapy Dictation was produced using [employer] dictation software. please excuse any grammatical, word or spelling errors. Time with Patient: Less than 30
--- NOTE | 2023-12-19 18:57 | P.PN ---
Subjective Progress Note Date: 12/19/23 Principal diagnosis: Reason for follow-up is a leukocytosis and the question of infection Patient is a 43-year-old female with a past medical history significant for breast cancer status post bilateral mastectomy April 2023 followed by chemotherapy patient was recently admitted to this facility did have a right upper quadrant pain elevated white count and concern for cholecystitis in this patient who is status post laparoscopic cholecystectomy along with laparoscopic biopsy of the liver lesion which apparently are suggestive of metastatic breast cancer. Patient now presenting back to the hospital concerning for abdominal pain nausea and vomiting and weakness, patient did not have any fever did have elevated white count CT abdominal pelvis with polyp cholecystectomy changes and fluid in the pelvic around the uterus no evidence of pneumoperitoneum. On today's evaluation that is 12/19/2023,the patient remains to be afebrile, patient is on room air not requiring supplemental oxygen and denies any shortness of breath no chest pain or cough.Patient has been complaining of feeling weak and tired still having nausea but no vomiting abdominal pain about the same and no diarrhea has been reported. Patient white count is down to 21,000, creatinine is 2.0 liver enzymes slightly decreased cultures negative Objective - Vital Signs Vital signs: Vital Signs Temp 97.7 F 12/19/23 17:12 Pulse 101 H 12/19/23 17:12 Resp 20 12/19/23 17:12 BP 113/62 12/19/23 17:12 Pulse Ox 92 L 12/19/23 17:12 FiO2 Intake & Output 12/18/23 12/19/23 12/19/23 18:59 06:59 18:59 Intake Total 660 2100 0 Output Total 92 1085 Balance 568 2100 -1085 Weight 138 kg Intake: Intake, IV Titration 660 1560 Amount Dextrose 5% in Water 1, 260 1560 000 ml @ 150 mls/hr IV . Q7H40M KARLI with Sodium Bicarb (1 Meq/ml) 150 ml Rx#:[id number] Lactated Ringers 1,000 ml 400 @ 100 mls/hr IV .Q10H KARLI Rx#:[id number] Oral 540 Blood Product 0 Unit 0 Output: Urine 550 Post Void Residual 92 535 Other: Voiding Method Toilet Toilet Toilet # Voids 1 1 1 # Bowel Movements 1 - Exam GENERAL DESCRIPTION: Middle-aged female lying in bed in no distress RESPIRATORY SYSTEM: Unlabored breathing , decreased breath sounds at bases HEART: S1 S2 regular rate and rhythm , ABDOMEN: Soft , no tenderness EXTREMITIES: No edema feet - Labs CBC & Chem 7: 12/19/23 06:10 12/19/23 16:15 Labs: Abnormal Lab Results - Last 24 Hours (Table) 12/19/23 12/19/23 12/19/23 Range/Units 06:10 06:20 06:20 WBC 21.0 H (3.8-10.6) k/uL RDW 21.9 H (11.5-15.5) % Plt Count 12 L* (150-450) k/uL Neutrophils # (Manual) 20.58 H (1.3-7.7) k/uL Lymphocytes # (Manual) 0.42 L (1.0-4.8) k/uL PT 21.9 H (10.0-12.5) sec INR 2.2 H (<1.2) APTT 52.0 H (22.0-30.0) sec Fibrinogen 177 L (200-500) mg/dL Carbon Dioxide 19.5 L (21.6-31.8) mmol/L Anion Gap 14.50 H (4.00-12.00) mmol/L BUN 70.9 H (9.0-27.0) mg/dL Creatinine 2.0 H (0.6-1.5) mg/dL Est GFR (CKD-EPI) 31 L (>=60) BUN/Creatinine Ratio 35.45 H (12.00-20.00) Ratio Glucose 179 H (70-110) mg/dL Calcium 6.7 L (8.7-10.3) mg/dL Total Bilirubin 6.3 H (0.3-1.2) mg/dL AST 290 H (13-35) U/L ALT 56 H (8-44) U/L Alkaline Phosphatase 332 H (41-126) U/L Total Protein 4.2 L (6.2-8.2) g/dL Albumin 2.0 L (3.8-4.9) g/dL Albumin/Globulin Ratio 0.91 L (1.60-3.17) Ratio Microbiology - Last 24 Hours (Table) 12/13/23 19:21 Blood Culture - Final Blood 12/13/23 19:05 Blood Culture - Final Blood Assessment and Plan (1) Leukocytosis Current Visit: No Status: Acute Code(s): D72.829 - ELEVATED WHITE BLOOD CELL COUNT, UNSPECIFIED SNOMED Code(s): 765630993 Plan: 1patient presented hospital with abdominal pain nausea and vomiting in this patient who did have a history of metastatic breast cancer with recent laparoscopic cholecystectomy as well as laparoscopic biopsy of the liver lesion now with abnormal CT abdominal pelvis concerning for fluid in the lower pelvis, patient case has been discussed in detail with the general surgery no clinically suspicious for biliary leak or need for HIDA scan also discussed with Dr. Caballero from hematology oncology this morning and is assessment is presentation is mostly of metastatic breast cancer, patient did not have any fever during this admission patient antibiotic has been discontinued as of 12/16/2023 2-patient remains to be afebrile white count slightly trending down without antibiotic therapy and the patient culture has been negative, will continue monitor the patient closely off antibiotic Family at the bedside questions were answered Dictation was produced using [employer] dictation software. please excuse any gr ammatical, word or spelling errors. Time with Patient: Less than 30
[2023-12-19] MEDS: LORazepam 1 MG/0.5 ML VIAL IV PRN (21:12)
[2023-12-20 01:15] LABS: Glucose,Whole Blood 152 mg/dL (70-110)
[2023-12-20 09:09] LABS: Basophils # (A) 0.02 X 10*3/uL (0.00-0.10); Basophils % (A) 0.1 %; Eosinophils # (A) 0 X 10*3/uL (0.04-0.35); Eosinophils % (A) 0 %; HCT 35.1 % (37.2-46.3); HGB 11.8 g/dL (12.0-15.0); Lymphocytes # (A) 0.58 X 10*3/uL (0.90-5.00); Lymphocytes % (A) 3.4 %; MCH 29.7 pg (27.0-32.0); MCHC 33.6 g/dL (32.0-37.0); MCV 88.4 FL (80.0-97.0); Monocytes # (A) 0.22 X 10*3/uL (0.20-1.00); Monocytes % (A) 1.3 %; NRBC Per 100 WBC 0 X 10*3/uL (0.00-0.01); Neutrophils # (A) 16.23 X 10*3/uL (1.80-7.70); Platelet Count 8 X 10*3/uL (140-440); RBC 3.97 X 10*6/uL (4.10-5.20); RDW 22.2 % (11.5-14.5); WBC 17.25 X 10*3/uL (4.50-10.00)
[2023-12-20] MEDS: NALOXONE 0.4 MG/ML 1 ML VIAL IV PRN (09:52)
[2023-12-20] MEDS ORDERED: MORPHINE SULFATE 2 MG/ML SYRINGE IVP PRN (10:19)
[2023-12-20 10:46] LABS: Partial Thromboplastin Time 45.6 sec (22.0-30.0); Prothrombin Time 20.1 sec (10.0-12.5)
--- NOTE | 2023-12-20 10:59 | P.PN ---
Subjective Patient is seen in follow-up for acute kidney injury. Morning labs pending. Has Perry catheter. Nonoliguric. Quite lethargic. Vital signs are stable. General: No acute distress. HEENT: Head exam is unremarkable. LUNGS: No audible rhonchi or wheezes. HEART: Rate and Rhythm are regular. ABDOMEN: Nontender. EXTREMITITES: 2+ edema. Objective - Vital Signs Vital signs: Vital Signs Temp 97.5 F L 12/20/23 02:00 Pulse 95 12/20/23 08:00 Resp 18 12/20/23 09:57 BP 130/78 12/20/23 08:00 Pulse Ox 93 L 12/20/23 08:00 FiO2 Intake & Output 12/19/23 12/20/23 12/20/23 18:59 06:59 18:59 Intake Total 249 3860 Output Total 1085 600 Balance -836 3260 Weight 142.5 kg Intake: Intake, IV Titration 3800 Amount Dextrose 5% in Water 1, 1800 000 ml @ 150 mls/hr IV . Q7H40M KARLI with Sodium Bicarb (1 Meq/ml) 150 ml Rx#:[id number] Sodium Chloride 0.9% 2, 2000 000 ml @ 999 mls/hr IV . Q2H1M ONE Rx#:[id number] Oral 60 Blood Product 249 Platelet Pheresis Pas 249 Psoralen Unit [id number] Output: Urine 550 600 Post Void Residual 535 Other: Voiding Method Toilet Indwelling Catheter # Voids 1 - Labs CBC & Chem 7: 12/20/23 05:50 12/19/23 16:15 Labs: Abnormal Lab Results - Last 24 Hours (Table) 12/20/23 12/20/23 12/20/23 Range/Units 01:14 05:50 09:05 WBC 17.25 H (4.50-10.00) X 10*3/uL RBC 3.97 L (4.10-5.20) X 10*6/uL Hgb 11.8 L (12.0-15.0) g/dL Hct 35.1 L (37.2-46.3) % RDW 22.2 H (11.5-14.5) % Plt Count 8 A* (140-440) X 10*3/uL Immature Gran # 0.20 H (0.00-0.04) X 10*3/uL Neutrophils # 16.23 H (1.80-7.70) X 10*3/uL Lymphocytes # 0.58 L (0.90-5.00) X 10*3/uL Eosinophils # 0 L (0.04-0.35) X 10*3/uL Immature Plt Fraction 32.0 H (1.1-6.1) % PT 20.1 H (10.0-12.5) sec INR 2.0 H (<1.2) APTT 45.6 H (22.0-30.0) sec POC Glucose (mg/dL) 152 H (70-110) mg/dL Assessment and Plan Plan: Assessment: 1. 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 Elevated uric acid level, phosphorus level, mild hyperkalemia as well as hypocalcemia all suggestive of tumor lysis syndrome. Patient started chemotherapy December 16, 2023. Status post rasburicase December 18, 2023. Received IV contrast December 13, 2023 for CTA. Baseline creatinine 0.8-0.9 and is up to 2.0 yesterday. No hydronephrosis noted on kidney ultrasound. 2. Metastatic breast cancer being followed by oncology. Patient has history of bilateral mastectomies and completed chemo in March 2023. 3. Metabolic acidosis secondary to acute kidney injury and IV fluids. Improving with bicarb drip. 4. DIC being followed by oncology. 5. Recent laparoscopic cholecystectomy December 09, 2023. 6. History of adrenal sufficiency maintained on Solu-Cortef. 7. Edema. Plan: Maintain bicarb drip. Decrease rate to 75 cc an hour. Lasix 80 mg IV once today. Strict I's and O's. Continue to monitor renal function and urine output. Avoid nephrotoxins. Continue to assess daily for need for renal replacement therapy. Case discussed with patient's present at bedside.
[2023-12-20 11:24] LABS: Fibrinogen 197 mg/dL (200-500)
--- NOTE | 2023-12-20 11:25 | XR ---
EXAMINATION TYPE: XR chest 1V portable DATE OF EXAM: 12/20/2023 Comparison: 12/18/2023 Clinical History: 43-year-old female hypoxia Findings: Left PICC tip cavoatrial junction. Low lung volumes with crowded vascular markings. Heart likely uppe r limits of normal in size. Interstitial densities and patchy mid and lower lung opacities. Aeration has worsened. Impression: Worsening aeration with developing patchy bilateral lower lung opacities.
[2023-12-20 11:26] LABS: Magnesium 2.4 mg/dL (1.5-2.4); Phosphorus 5.2 mg/dL (2.4-5.1)
[2023-12-20] MEDS: FUROSEMIDE 10 MG/ML 10 ML VIAL IV STA (11:26)
[2023-12-20 11:27] LABS: ALT 50 U/L (8-44); AST 244 U/L (13-35); Albumin 2.1 g/dL (3.8-4.9); Albumin/Globulin Ratio 1.05 Ratio (1.60-3.17); Alkaline Phosphatase 298 U/L (41-126); BUN/Creat Ratio 41.95 Ratio (12.00-20.00); Blood Urea Nitrogen 79.7 mg/dL (9.0-27.0); Calcium 6.7 mg/dL (8.7-10.3); Carbon Dioxide 22.4 mmol/L (21.6-31.8); Chloride 96 mmol/L (96-109); Glucose 184 mg/dL (70-110); Potassium 5.4 mmol/L (3.5-5.5); Sodium 134 mmol/L (135-145); Total Bilirubin 7.2 mg/dL (0.3-1.2); Total Protein 4.1 g/dL (6.2-8.2)
--- NOTE | 2023-12-20 15:57 | P.PN ---
Subjective Progress Note Date: 12/20/23 CHIEF COMPLAINT: Abdominal pain HISTORY OF PRESENT ILLNESS: Patient is more lethargic. Does complain of abdominal pain. She did have to be Narcan. She appears more short of breath. Afebrile. Heart rate 82 on 2 L satting at 98% platelets are down to 8 she is scheduled for platelet transfusion. WBC is 17 Hgb 11.8 INR 2.0 total bilirubin 7.2 LFTs elevated. Chest x-ray showing worsening aeration with patchy bilateral lower lung opacities. PHYSICAL EXAM: VITAL SIGNS: Reviewed. GENERAL: Patient's breathing appears more labored. Lethargic HEENT: Sclera icterus present ABDOMEN: Soft. Nondistended. Mild diffuse tenderness Skin: Jaundiced ASSESSMENT: 1. Metastatic breast cancer with liver metastasis and Liver failure 2. Intractable nausea 3. DIC followed by oncology service 4. Fluid collection in the pelvis on CT likely old blood 5. Recent laparoscopic cholecystectomy on December 09, 2023 with liver lesion biopsy. 6. History of breast cancer status post bilateral mastectomy, chemo and radiation PLAN: -No surgical intervention planned -Continue supportive care -Patient followed by oncology service -Continue full liquids. Continue Ensure for protein supplement Physician Tool Radial Drill Press Set Up Operator note has been reviewed by physician. Signing provider agrees with the documented findings, assessment, and plan of care. Objective - Vital Signs Vital signs: Vital Signs Temp 97.3 F L 12/20/23 15:25 Pulse 82 12/20/23 15:25 Resp 16 12/20/23 15:25 BP 130/78 12/20/23 15:25 Pulse Ox 100 12/20/23 15:25 FiO2 Intake & Output 12/19/23 12/20/23 12/20/23 18:59 06:59 18:59 Intake Total 249 3860 0 Output Total 1085 600 900 Balance -836 3260 -900 Weight 142.5 kg Intake: Intake, IV Titration 3800 Amount Dextrose 5% in Water 1, 1800 000 ml @ 75 mls/hr IV . [id number] KARLI with Sodium Bicarb (1 Meq/ml) 150 ml Rx#:[id number] Sodium Chloride 0.9% 2, 2000 000 ml @ 999 mls/hr IV . Q2H1M ONE Rx#:[id number] Oral 60 Blood Product 249 0 Unit 0 Platelet Pheresis Pas 249 Psoralen Unit [id number] Output: Urine 550 600 900 Post Void Residual 535 Other: Voiding Method Toilet Indwelling Catheter Indwelling Catheter # Voids 1 - Labs CBC & Chem 7: 12/20/23 05:50 12/20/23 05:50 Labs: Abnormal Lab Results - Last 24 Hours (Table) 12/20/23 12/20/23 12/20/23 Range/Units 01:14 05:50 05:50 WBC 17.25 H (4.50-10.00) X 10*3/uL RBC 3.97 L (4.10-5.20) X 10*6/uL Hgb 11.8 L (12.0-15.0) g/dL Hct 35.1 L (37.2-46.3) % RDW 22.2 H (11.5-14.5) % Plt Count 8 A* (140-440) X 10*3/uL Immature Gran # 0.20 H (0.00-0.04) X 10*3/uL Neutrophils # 16.23 H (1.80-7.70) X 10*3/uL Lymphocytes # 0.58 L (0.90-5.00) X 10*3/uL Eosinophils # 0 L (0.04-0.35) X 10*3/uL Immature Plt Fraction 32.0 H (1.1-6.1) % PT (10.0-12.5) sec INR (<1.2) APTT (22.0-30.0) sec Fibrinogen (200-500) mg/dL D-Dimer (<0.60) mg/L FEU Sodium 134 L (135-145) mmol/L Anion Gap 15.60 H (4.00-12.00) mmol/L BUN 79.7 H (9.0-27.0) mg/dL Creatinine 1.9 H (0.6-1.5) mg/dL Est GFR (CKD-EPI) 33 L (>=60) BUN/Creatinine Ratio 41.95 H (12.00-20.00) Ratio Glucose 184 H (70-110) mg/dL POC Glucose (mg/dL) 152 H (70-110) mg/dL Calcium 6.7 L (8.7-10.3) mg/dL Phosphorus 5.2 H (2.4-5.1) mg/dL Total Bilirubin 7.2 H (0.3-1.2) mg/dL AST 244 H (13-35) U/L ALT 50 H (8-44) U/L Alkaline Phosphatase 298 H (41-126) U/L Total Protein 4.1 L (6.2-8.2) g/dL Albumin 2.1 L (3.8-4.9) g/dL Albumin/Globulin Ratio 1.05 L (1.60-3.17) Ratio 12/20/23 Range/Units 09:05 WBC (4.50-10.00) X 10*3/uL RBC (4.10-5.20) X 10*6/uL Hgb (12.0-15.0) g/dL Hct (37.2-46.3) % RDW (11.5-14.5) % Plt Count (140-440) X 10*3/uL Immature Gran # (0.00-0.04) X 10*3/uL Neutrophils # (1.80-7.70) X 10*3/uL Lymphocytes # (0.90-5.00) X 10*3/uL Eosinophils # (0.04-0.35) X 10*3/uL Immature Plt Fraction (1.1-6.1) % PT 20.1 H (10.0-12.5) sec INR 2.0 H (<1.2) APTT 45.6 H (22.0-30.0) sec Fibrinogen 197 L (200-500) mg/dL D-Dimer >34.10 H (<0.60) mg/L FEU Sodium (135-145) mmol/L Anion Gap (4.00-12.00) mmol/L BUN (9.0-27.0) mg/dL Creatinine (0.6-1.5) mg/dL Est GFR (CKD-EPI) (>=60) BUN/Creatinine Ratio (12.00-20.00) Ratio Glucose (70-110) mg/dL POC Glucose (mg/dL) (70-110) mg/dL Calcium (8.7-10.3) mg/dL Phosphorus (2.4-5.1) mg/dL Total Bilirubin (0.3-1.2) mg/dL AST (13-35) U/L ALT (8-44) U/L Alkaline Phosphatase (41-126) U/L Total Protein (6.2-8.2) g/dL Albumin (3.8-4.9) g/dL Albumin/Globulin Ratio (1.60-3.17) Ratio
--- NOTE | 2023-12-20 17:55 | P.PN ---
Subjective Progress Note Date: 12/20/23 Patient more lethargic today. C/o of abdominal and back pain. Narcan had to be given this morning as patient had decreased respirations noted at 6. Pt did become more responsive after narcan per nursing staff. Pt last received 4mg IVP morphine at 0318, and 1mg ativan at 0532. IV morphine has been discontinued. Coags stable today, fibrinogen 197. Has reported mild vaginal bleeding when wiping with tissue; Per nursing scant amount of blood was noted on draw sheet this morning. No clotting noted. Small amount of dried blood to lower lip, thought to be related to chapped lips. Encouraged using oral swabs and use of Vasoline or chap stick to moisturize lips/mucous membranes. Bilirubin increased today at 7.2, some improvement in LFTs. WBC 17.2, Hgb 11.8, platelets 8,000. Additional dose platelets ordered. Uric acid stable at 5, creatinine slightly improved at 1.9. Pt remains afebirle, and blood cultures negative. Repeat chest x-ray today revealed worsening aeration with developing patchy bilateral lower lung opacities. 80 mg IVP Lasix has been given. Objective - Vital Signs Vital signs: Vital Signs Temp 97.8 F 12/20/23 12:18 Pulse 92 12/20/23 12:18 Resp 9 L 12/20/23 12:18 BP 124/77 12/20/23 12:18 Pulse Ox 98 12/20/23 12:18 FiO2 Intake & Output 12/19/23 12/20/23 12/20/23 18:59 06:59 18:59 Intake Total 249 3860 Output Total 1085 600 300 Balance -836 3260 -300 Weight 142.5 kg Intake: Intake, IV Titration 3800 Amount Dextrose 5% in Water 1, 1800 000 ml @ 75 mls/hr IV . [id number] KARLI with Sodium Bicarb (1 Meq/ml) 150 ml Rx#:[id number] Sodium Chloride 0.9% 2, 2000 000 ml @ 999 mls/hr IV . Q2H1M ONE Rx#:[id number] Oral 60 Blood Product 249 Platelet Pheresis Pas 249 Psoralen Unit [id number] Output: Urine 550 600 300 Post Void Residual 535 Other: Voiding Method Toilet Indwelling Catheter Indwelling Catheter # Voids 1 - Constitutional General appearance: Present: no acute distress - EENT EENT Comment(s): dried blood noted to bottom lip, no mucositis noted, oral mucous membranes dry - Respiratory Details: breathing is even and unlabored - Cardiovascular Details: skin warm and dry - Gastrointestinal General gastrointestinal: Present: tenderness - Integumentary Integumentary: Present: jaundiced. Absent: cyanotic - Neurologic Neurologic Comment(s): lethargic - Musculoskeletal Musculoskeletal: Present: generalized weakness - Labs CBC & Chem 7: 12/20/23 05:50 12/20/23 05:50 Labs: Abnormal Lab Results - Last 24 Hours (Table) 12/20/23 12/20/23 12/20/23 Range/Units 01:14 05:50 05:50 WBC 17.25 H (4.50-10.00) X 10*3/uL RBC 3.97 L (4.10-5.20) X 10*6/uL Hgb 11.8 L (12.0-15.0) g/dL Hct 35.1 L (37.2-46.3) % RDW 22.2 H (11.5-14.5) % Plt Count 8 A* (140-440) X 10*3/uL Immature Gran # 0.20 H (0.00-0.04) X 10*3/uL Neutrophils # 16.23 H (1.80-7.70) X 10*3/uL Lymphocytes # 0.58 L (0.90-5.00) X 10*3/uL Eosinophils # 0 L (0.04-0.35) X 10*3/uL Immature Plt Fraction 32.0 H (1.1-6.1) % PT (10.0-12.5) sec INR (<1.2) APTT (22.0-30.0) sec Fibrinogen (200-500) mg/dL D-Dimer (<0.60) mg/L FEU Sodium 134 L (135-145) mmol/L Anion Gap 15.60 H (4.00-12.00) mmol/L BUN 79.7 H (9.0-27.0) mg/dL Creatinine 1.9 H (0.6-1.5) mg/dL Est GFR (CKD-EPI) 33 L (>=60) BUN/Creatinine Ratio 41.95 H (12.00-20.00) Ratio Glucose 184 H (70-110) mg/dL POC Glucose (mg/dL) 152 H (70-110) mg/dL Calcium 6.7 L (8.7-10.3) mg/dL Phosphorus 5.2 H (2.4-5.1) mg/dL Total Bilirubin 7.2 H (0.3-1.2) mg/dL AST 244 H (13-35) U/L ALT 50 H (8-44) U/L Alkaline Phosphatase 298 H (41-126) U/L Total Protein 4.1 L (6.2-8.2) g/dL Albumin 2.1 L (3.8-4.9) g/dL Albumin/Globulin Ratio 1.05 L (1.60-3.17) Ratio /02/06 Range/Units 09:05 WBC (4.50-10.00) X 10*3/uL RBC (4.10-5.20) X 10*6/uL Hgb (12.0-15.0) g/dL Hct (37.2-46.3) % RDW (11.5-14.5) % Plt Count (140-440) X 10*3/uL Immature Gran # (0.00-0.04) X 10*3/uL Neutrophils # (1.80-7.70) X 10*3/uL Lymphocytes # (0.90-5.00) X 10*3/uL Eosinophils # (0.04-0.35) X 10*3/uL Immature Plt Fraction (1.1-6.1) % PT 20.1 H (10.0-12.5) sec INR 2.0 H (<1.2) APTT 45.6 H (22.0-30.0) sec Fibrinogen 197 L (200-500) mg/dL D-Dimer >34.10 H (<0.60) mg/L FEU Sodium (135-145) mmol/L Anion Gap (4.00-12.00) mmol/L BUN (9.0-27.0) mg/dL Creatinine (0.6-1.5) mg/dL Est GFR (CKD-EPI) (>=60) BUN/Creatinine Ratio (12.00-20.00) Ratio Glucose (70-110) mg/dL POC Glucose (mg/dL) (70-110) mg/dL Calcium (8.7-10.3) mg/dL Phosphorus (2.4-5.1) mg/dL Total Bilirubin (0.3-1.2) mg/dL AST (13-35) U/L ALT (8-44) U/L Alkaline Phosphatase (41-126) U/L Total Protein (6.2-8.2) g/dL Albumin (3.8-4.9) g/dL Albumin/Globulin Ratio (1.60-3.17) Ratio - Imaging and Cardiology Chest x-ray: report reviewed US - abdomen: report reviewed Assessment and Plan (1) DIC (disseminated intravascular coagulation) Current Visit: Yes Status: Acute Priority: High Code(s): D65 - DISSEMINATED INTRAVASCULAR COAGULATION SNOMED Code(s): 49877034 (2) Nausea and vomiting Current Visit: Yes Status: Acute Priority: Medium Code(s): R11.2 - NAUSEA WITH VOMITING, UNSPECIFIED SNOMED Code(s): 30072812 (3) Post-op pain Current Visit: Yes Status: Acute Priority: Medium Code(s): G89.18 - OTHER ACUTE POSTPROCEDURAL PAIN SNOMED Code(s): 620084060 (4) Thrombocytopenia Current Visit: Yes Status: Acute Priority: High Code(s): D69.6 - THROMBOCYTOPENIA, UNSPECIFIED SNOMED Code(s): 483186173 (5) Stage III breast cancer in female Current Visit: No Status: Acute Priority: High Code(s): C50.919 - MALIGNANT NEOPLASM OF UNSP SITE OF UNSPECIFIED FEMALE BREAST SNOMED Code(s): 23032073 (6) Acute kidney injury Current Visit: Yes Status: Acute Priority: High Code(s): N17.9 - ACUTE KIDNEY FAILURE, UNSPECIFIED SNOMED Code(s): 51341143 Plan: Abd pain, transaminitis with hepatic lesion: S/p karla on 12/08. Noted to have progressing nausea/vomiting, abd pain and weakness over the last 2 days -Labs in clinic noted hepatocellular and cholestatic transaminitis, which was also noted on this and prior admission -During last admission, gallbladder ultrasound noted pericholecystic fluid surrounding the gallbladder along with hepatic lesions and MRI of the liver noted left hepatic lobe lesion measuring 5.1 cm. -Underwent cholecystectomy on 12/09/2023 with noted inflamed gallbladder along with nodular lesions on the liver with biopsy of one of the lesions performed -Liver biopsy positive for metastatic breast cancer -Obtained repeat US gallbladder for further evaluation to r/o obstruction, however, CT AP did not note findings of the same, and noted liver failure, hyperbilrubinemia is likely related to metastatic disease. Gallbladder ultrasound revealed postcholecystectomy changes without evidence for organizing fluid collection. -Case has been discussed with ID. Blood cultures negative at 48 hrs and pt has remained afebrile during admission, as well as a high suspicion that patients acute liver failure is r/t malignancy; so proceeded with Taxol on 12/15 -She remains afebrile and blood cultures negative DIC: -CBC was notable for platelets 17,000. Hemoglobin stable at 14.4, Coags were elevated with a fibrinfogen of 76, consistent with DIC -She has been given cryoprecipitate and vitamin K -S/p chemo on 12/15, Coags stable today, fibrinogen 197. Mild decrease in LFTs and increase in bilirubin, 7.2 today. Have previously discussed with pt that initially after starting treatment we could see worsening in liver function, with hopes of improvement over the next couple days. She is experiencing mild vaginal bleeding noted with wiping with tissue and small amount of dried blood on lower lip, otherwise no other acute episodes of bleeding noted -Thrombocytopenia and DIC, likely due to underlying malignancy however difficult to determine if she has true DIC or decompensated liver failure causing her coagulopathy including high PT, PTT, and low fibrinogen. Plan on supportive transfusion to maintain her platelets above 30,000 to ensure she does not bleed; monitor for thrombosis and bleeding; transfuse cryo to maintain fibrinogen above 150. -DIC labs q12hrs -Hold anticoagulation and NSAIDs MARIANO: -Nephrology consulted, concern for hepatorenal syndrome versus tumor lysis. -Received rasburicase. Uric acid improving from 9 to 5. Potassium now normal at 5.4. Calcium slightly improved, phosphorus worsened however. Kidney function sl ightly improved, creatinine 1.9 -Ultrasound of kidneys/bladder revealed no evidence of obstructive uropathy. With trace intra-abdominal ascites. -Continue to monitor kidney function/ TLS labs Stage IIIA triple negative breast cancer: -Underwent neoadjuvant chemoimmunotherapy with carboplatin/Taxol/Keytruda for 4 cycles followed by 3 cycles of AC plus Keytruda -Treatment was complicated by adrenal insufficiency secondary to Keytruda, cycle 4 of AC plus Keytruda omitted -Bilateral mastectomy performed at [facility] on 05/11/2023 noted pathologic complete response -CT chest revealed no acute findings -Bone scan revealed uptake in the bilateral ribs, right hemisacrum, and left ilium adjacent to the SI joint and left femoral supracondylar region medially concerning for metastatic disease -Liver biopsy positive for metastatic breast cancer. Discussed that due to progressing acute liver failure, we recommend starting single agent Taxol inpatient. Risks vs benefits discussed, including risks involved with recent cholecystectomy on 12/08. She verbalized understanding and was agreeable to proceed with treatment. -Completed cycle 1 Taxol on 12/15. Pending course of hospitalization will plan to continue q3 weeks and plan to add keytruda with next cycle
[2023-12-20 21:00] LABS: INR 1.9 (<1.2); Partial Thromboplastin Time 44.4 sec (22.0-30.0); Prothrombin Time 19.1 sec (10.0-12.5)
--- NOTE | 2023-12-20 21:54 | P.PN ---
Subjective Progress Note Date: 12/20/23 Principal diagnosis: Reason for follow-up is a leukocytosis and the question of infection Patient is a 43-year-old female with a past medical history significant for breast cancer status post bilateral mastectomy April 2023 followed by chemotherapy patient was recently admitted to this facility did have a right upper quadrant pain elevated white count and concern for cholecystitis in this patient who is status post laparoscopic cholecystectomy along with laparoscopic biopsy of the liver lesion which apparently are suggestive of metastatic breast cancer. Patient now presenting back to the hospital concerning for abdominal pain nausea and vomiting and weakness, patient did not have any fever did have elevated white count CT abdominal pelvis with polyp cholecystectomy changes and fluid in the pelvic around the uterus no evidence of pneumoperitoneum. On today's evaluation that is 12/20/2023, the patient continues to be afebrile, the patient is on 3 L nasal cannula oxygen and breathing comfortably, the Pt has been complaining of a lot of pain in the lower back area and apparently the patient has received pain medication subsequently has to be given again as the patient become lethargic no vomiting or diarrhea has been reported. Patient white count is down to 17.25 creatinine is 1.9 Objective - Vital Signs Vital signs: Vital Signs Temp 97.4 F L 12/20/23 16:11 Pulse 77 12/20/23 16:11 Resp 16 12/20/23 16:11 BP 138/69 12/20/23 16:11 Pulse Ox 100 12/20/23 16:11 FiO2 Intake & Output 12/19/23 12/20/23 12/20/23 18:59 06:59 18:59 Intake Total 249 3860 259 Output Total 1085 600 900 Balance -836 3260 -641 Weight 142.5 kg Intake: Intake, IV Titration 3800 Amount Dextrose 5% in Water 1, 1800 000 ml @ 75 mls/hr IV . [id number] KARLI with Sodium Bicarb (1 Meq/ml) 150 ml Rx#:[id number] Sodium Chloride 0.9% 2, 2000 000 ml @ 999 mls/hr IV . Q2H1M ONE Rx#:[id number] Oral 60 Blood Product 249 259 Platelet Pheresis Pas 249 Psoralen Unit [id number] Platelet Pheresis Pas 259 Psoralen Unit [id number] Output: Urine 550 600 900 Post Void Residual 535 Other: Voiding Method Toilet Indwelling Catheter Indwelling Catheter # Voids 1 - Labs CBC & Chem 7: 12/20/23 05:50 12/20/23 05:50 Labs: Abnormal Lab Results - Last 24 Hours (Table) 12/20/23 12/20/23 12/20/23 Range/Units 01:14 05:50 05:50 WBC 17.25 H (4.50-10.00) X 10*3/uL RBC 3.97 L (4.10-5.20) X 10*6/uL Hgb 11.8 L (12.0-15.0) g/dL Hct 35.1 L (37.2-46.3) % RDW 22.2 H (11.5-14.5) % Plt Count 8 A* (140-440) X 10*3/uL Immature Gran # 0.20 H (0.00-0.04) X 10*3/uL Neutrophils # 16.23 H (1.80-7.70) X 10*3/uL Lymphocytes # 0.58 L (0.90-5.00) X 10*3/uL Eosinophils # 0 L (0.04-0.35) X 10*3/uL Immature Plt Fraction 32.0 H (1.1-6.1) % PT (10.0-12.5) sec INR (<1.2) APTT (22.0-30.0) sec Fibrinogen (200-500) mg/dL D-Dimer (<0.60) mg/L FEU Sodium 134 L (135-145) mmol/L Anion Gap 15.60 H (4.00-12.00) mmol/L BUN 79.7 H (9.0-27.0) mg/dL Creatinine 1.9 H (0.6-1.5) mg/dL Est GFR (CKD-EPI) 33 L (>=60) BUN/Creatinine Ratio 41.95 H (12.00-20.00) Ratio Glucose 184 H (70-110) mg/dL POC Glucose (mg/dL) 152 H (70-110) mg/dL Calcium 6.7 L (8.7-10.3) mg/dL Phosphorus 5.2 H (2.4-5.1) mg/dL Total Bilirubin 7.2 H (0.3-1.2) mg/dL AST 244 H (13-35) U/L ALT 50 H (8-44) U/L Alkaline Phosphatase 298 H (41-126) U/L Total Protein 4.1 L (6.2-8.2) g/dL Albumin 2.1 L (3.8-4.9) g/dL Albumin/Globulin Ratio 1.05 L (1.60-3.17) Ratio 12/20/23 Range/Units 09:05 WBC (4.50-10.00) X 10*3/uL RBC (4.10-5.20) X 10*6/uL Hgb (12.0-15.0) g/dL Hct (37.2-46.3) % RDW (11.5-14.5) % Plt Count (140-440) X 10*3/uL Immature Gran # (0.00-0.04) X 10*3/uL Neutrophils # (1.80-7.70) X 10*3/uL Lymphocytes # (0.90-5.00) X 10*3/uL Eosinophils # (0.04-0.35) X 10*3/uL Immature Plt Fraction (1.1-6.1) % PT 20.1 H (10.0-12.5) sec INR 2.0 H (<1.2) APTT 45.6 H (22.0-30.0) sec Fibrinogen 197 L (200-500) mg/dL D-Dimer >34.10 H (<0.60) mg/L FEU Sodium (135-145) mmol/L Anion Gap (4.00-12.00) mmol/L BUN (9.0-27.0) mg/dL Creatinine (0.6-1.5) mg/dL Est GFR (CKD-EPI) (>=60) BUN/Creatinine Ratio (12.00-20.00) Ratio Glucose (70-110) mg/dL POC Glucose (mg/dL) (70-110) mg/dL Calcium (8.7-10.3) mg/dL Phosphorus (2.4-5.1) mg/dL Total Bilirubin (0.3-1.2) mg/dL AST (13-35) U/L ALT (8-44) U/L Alkaline Phosphatase (41-126) U/L Total Protein (6.2-8.2) g/dL Albumin (3.8-4.9) g/dL Albumin/Globulin Ratio (1.60-3.17) Ratio Assessment and Plan (1) Leukocytosis Current Visit: No Status: Acute Code(s): D72.829 - ELEVATED WHITE BLOOD CELL COUNT, UNSPECIFIED SNOMED Code(s): 038347018 Plan: 1patient presented hospital with abdominal pain nausea and vomiting in this patient who did have a history of metastatic breast cancer with recent laparoscopic cholecystectomy as well as laparoscopic biopsy of the liver lesion now with abnormal CT abdominal pelvis concerning for fluid in the lower pelvis, patient case has been discussed in detail with the general surgery no clinically suspicious for biliary leak or need for HIDA scan also discussed with Dr. Caballero from hematology oncology this morning and is assessment is presentation is mostly of metastatic breast cancer, patient did not have any fever during this admission patient antibiotic has been discontinued as of 12/16/2023 2-patient remains to be afebrile, the patient white count is trending down despite discontinuation of antibiotics few days ago and culture has been negative continue with the current supportive treatment and will monitor off antibiotic therapy Dictation was produced using [employer] dictation software. please excuse any grammatical, word or spelling errors. Time with Patient: Less than 30
--- NOTE | 2023-12-20 22:03 | P.PN ---
Subjective Progress Note Date: 12/20/23 This is a pleasant 43-year-old female who presented to the emergency department with increased abdominal pain, postop nausea and vomiting with decreased oral intake and dehydration. Patient recently was hospitalized underwent liver biopsy along with acute cholecystectomy with general surgery Dr. Vuong last week. Patient reports she continued to have abdominal pain and difficulty tolerating oral intake and recently started developing nausea and vomiting again. Patient reports severe abdominal pain with no improvement. Patient reports having minimal bowel movements although is passing gas and is urinating with no difficulties. Labs reviewed on admission and had a D-dimer done which was significantly elevated underwent CTA with no suggestion of PE. Other labs reveal an elevated white count of 20.8, hemoglobin stable at 14.4, platelets significantly low at 17, INR 2.0, D-dimer above 34, sodium 135, potassium 3.7, creatinine 1.01, lactic acid was 2.0, total bili is 5.9 with an AST of 229 and ALT is 78 and alk phos is 365, lipase was 34. Urinalysis was negative and influenza/COVID/RSV are all negative as well. Patient was admitted for dehydration with general surgery as well as oncology on consult. Patient did undergo a liver biopsy last admission during the cholecystectomy which remains pending. Patient having an increasing white count this morning of 26 with no fevers noted and empiric antibiotics started and will consult infectious disease and appreciate input and recommendations. EKG shows sinus rhythm, abdominal pelvis CT shows postcholecystectomy changes with high density fluid in the pelvis around the uterus posteriorly representing possible blood products with n o evidence of pneumoperitoneum or organizing peripheral enhancing fluid collection to suggest abscess, persistent liver lesions as noted on MRI from 422 concerning of metastatic disease until proven otherwise and a trace bilateral pleural effusions. Patient is on room air and denies significant shortness of breath although does feel exerted with minimal exertion. Will add incentive spirometer. 12/15/2023 Patient is seen in follow-up this morning lethargic although arousable. Patient is scheduled to undergo a PICC line as oncology is following and discussing initiating Taxol chemotherapy while inpatient. Repeat ultrasound showing post cholecystectomy changes. Per oncology, liver biopsy that was performed last week is positive for metastatic breast cancer. Patient continues to report some nausea and vomiting with decreased oral intake and continued abdominal pain. Patient is having some generalized edema noted and was given a dose of Lasix. Patient's labs consistent with DIC and is status post cryoprecipitate. Oncology following closely. White count is trending down and patient is maintained on antibiotics. Infectious diseases following. Overall prognosis remains guarded. 12/16/2023 Patient seen and evaluated in follow-up status post PICC line placement with oncology following closely with plans of initiating chemotherapy while inpatient today. Multiple medical consultations following. Patient was initiated on antibiotics and white count is trending down. Infectious disease following and will be monitored closely off antibiotic therapy. Patient will receive Taxol and will be monitored closely. Patient also to receive platelets today. Continue with current regimen with oncology following closely. Encouraged to increase activity as tolerated. Patient reports generalized weakness although is getting up and walking to the bathroom. Patient does feel somewhat short of breath with exertion. Patient continues with generalized edema noted of the lower extremities as well as upper and abdomen. Will continue to encourage elevating lower extremities while at rest and may use Mark wraps or compression stockings to assist with swelling. Diet has been advanced per surgery and boost supplements also being added as patient reports continued abdominal pain with not much of an appetite. 12/17/2023 Patient is seen in follow-up today status post chemotherapy of Taxol. Patient reports to feeling significantly tired and weak with continued abdominal pain and nausea. Patient has been using Zofran and general surgery following as patient is recent status post lap cholecystectomy. No plans for surgical intervention at this time. Patient is receiving platelets today and other labs reviewed with oncology following closely undergoing further DIC treatment and workup. Infectious disease following as well and patient is being closely monitored off antibiotic therapy. White count remains elevated. Patient is afebrile. Patient is maintained on full liquids although reports not eating much and not tolerating. Patient has significant pain when attempting to eat or drink and associated with severe nausea. Encouraged patient to increase activity as tolerated and attempt to sit up in the chair. Ensure supplements being added. Patient appears jaundice and edematous. 0 12/18/2023 Patient is evaluated today on the medical floor. Patient is status post chemotherapy of Taxol. She continues to feel significantly weak and is requiring assistance to get up to the restroom. Patient states that she could possibly sit up in the chair however states that she is too weak to walk from the chair to the restroom. Patient continues to report significant nausea and abdominal discomfort. Patient did receive a dose of cryoprecipitate for fibrinogen level and today's blood work is showing to 15 with improvement in her PTT/PTT her INR remained stable at 2.2. Patient's calcium level was low today at 6.3, uric acid and phosphorus levels are elevated. Her creatinine has increased up to 1.68 with a sodium level of 133. Patient states that she does feel dehydrated being as she has had poor oral intake and is really unable to tolerate much fluids at this time. Her white blood cell count remains elevated at 22.6. Chest x-ray reveals no acute process. 12/19/2023 Patient evaluated in follow up today. Continues to report abdominal discomfort right upper quadrant and also lower back pain. Patient has become increasingly weak and having difficulty with ambulation requiring multiple staff members to help her up to the restroom. Patient has been increasingly restless throughout the day and states she is unable to get comfortable in the bed. She is also anxious. Wanting the IV fluids turned down as she reports feeling puffy and fluid overloaded. Concern for tumor lysis syndrome and received a dose of rasburicase yesterday. Nephrology was consulted. Her creatinine continues to worsen today BUN is 70.9 and creatinine 2.0. Patient was found to have significant urinary retention with over 2L in the urinary bladder and an indwelling catheter has been placed. LFTs remain elevated. Sodium improved to 135, potassium 5.3 today. 12/20/2023 Patient is evaluated today in follow up on the medical floor. Was having increasing lower back pain, and discomfort yesterday and into the evening which was not controlled by norco. Patient states the dilaudid made her loopy and morphine was then given. Patient was sedated upon evaluation this AM and was given a dose of narcan and respirations did improve. Patient reports not being able to get comfortable and has increasing peripheral edema. Fluids will be cut back and patient will be given a dose of IV lasix today. Platelet count found to be 8 and also fibrinogen is 197. Patient is scheduled to receive a unit of platelets today. Patient has received 2 units of platelets and 2 units of cryoprecipitate so far this admission. White blood cell count slightly improved to 17.25. BUN 79.7, creatinine 1.9. Total bilirubin 7.2. Review of systems: Constitutional: reports of extreme fatigue, no fever, or chills Cardiovascular: No reports of chest pain or palpitations Respiratory: reports of occasional shortness of breath GI: reports of nausea, no vomiting, or diarrhea : No reports of dysuria or retention Neurovascular: reports of generalized weakness and overall body swelling All medications have been reviewed PHYSICAL EXAMINATION: GENERAL: The patient is asleep but arousable, alert and oriented x3. Appears exhausted. Well developed, well nourished. Ill-appearing. Morbidly obese HEENT: Pupils are round and equally reacting to light. EOMI. No scleral icterus. No conjunctival pallor. Normocephalic, atraumatic. No pharyngeal erythema. No thyromegaly. CARDIOVASCULAR: S1 and S2 muffled PULMONARY: Chest is clear to auscultation, no wheezing or crackles. ABDOMEN: Soft, tender, nondistended, normoactive bowel sounds. No palpable organomegaly. Surgical sites noted on the right upper quadrant with some serous drainage and a previous blister which appears to be irritation from the tape with no significant redness or cellulitis noted MUSCULOSKELETAL: No joint swelling or deformity. EXTREMITIES: No cyanosis, clubbing, or pedal edema. Bilateral upper and lower extremities edematous NEUROLOGICAL: Gross neurological examination did not reveal any focal deficits. Diffusely weak SKIN: No rashes. Jaundice Assessment: Nausea vomiting, decreased oral intake with dehydration and continued abdominal pain, multifactorial, most likely secondary to metastatic disease Acute kidney injury prerenal secondary to dehydration patient has had poor oral intake will be started on IV fluids, there is also concern for tumor lysis syndrome. Nephrology was consulted. Hyperkalemia secondary to the acute kidney injury Hypovolemic hyponatremia due to dehydration Elevated uric acid patient will receive a dose of rasburicase as recommended by oncology Thrombocytopenia patient will receive a unit of platelets today. Possible tumor lysis syndrome Urinary retention require indwelling scruggs catheter Status post laparoscopic cholecystectomy last week Significant leukocytosis, multifactorial, likely reactive, trending down and monitored off antibiotics currently. 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 History of known breast cancer status post bilateral mastectomy in [place] in the summer 2022 with radiation treatment completed in August Chemotherapy induced adrenal insufficiency Morbid obesity with a BMI of 40.7 GI prophylaxis DVT prophylaxis Full code Plan: Patient was admitted with continued abdominal pain with nausea and vomiting with general surgery following as patient is recent laparoscopic cholecystectomy on 12/09/2023. 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 Patient received a PICC line and was given Taxol chemotherapy. Oncology following ordering additional platelets White count trending down and will monitor off antibiotic therapy. Infectious diseases following closely. Undergoing DIC monitoring, labs are consistent with DIC and is status post cryoprecipitate. Repeat labs ordered every 12 hours Encourage incentive spirometer use at least 10 times every hour while awake Patient having some generalized edema noted throughout upper and lower extremities and abdomen. Recommend Mark wraps or compression stockings to bilateral lower extremities and elevating and while at rest. Patient is extremely edematous although is most likely dehydrated, concern for third spacing. Patient appears jaundiced with elevated bilirubin and liver functions. Nephrology ordered a dose of IV lasix today. Nephrology following and has started the patient on bicarb gtt. Lokelma give for the hyperkalemia. Repeat labs in the AM. Physical therapy and occupational therapy consulted as patient has had prolonged hospital stay and increasing weakness. Will continue with pain management and antinausea medications. Encouraged oral intake Overall prognosis is extremely guarded at this time. Condition is critical Repeat blood work in the AM. The impression and plan of care has been dictated by Kimberly Lehman, Nurse Practitioner as directed. Dr. Leeanne MD I have performed a history and physical examination and medical decision making of this patient, discussed the same with the dictator, and agree with the dictators assessment and plan as written, documented as a scribe. Based on total visit time, I have performed more than 50% of this visit. Objective - Vital Signs Vital signs: Vital Signs Temp 97.4 F L 12/20/23 20:00 Pulse 94 12/20/23 20:00 Resp 8 L 12/20/23 20:00 BP 136/71 12/20/23 20:00 Pulse Ox 100 12/20/23 20:00 FiO2 Intake & Output 12/20/23 12/20/23 12/21/23 06:59 18:59 06:59 Intake Total 3860 259 Output Total 600 900 Balance 3260 -641 Weight 142.5 kg Intake: Intake, IV Titration 3800 Amount Dextrose 5% in Water 1, 1800 000 ml @ 75 mls/hr IV . [id number] KARLI with Sodium Bicarb (1 Meq/ml) 150 ml Rx#:[id number] Sodium Chloride 0.9% 2, 2000 000 ml @ 999 mls/hr IV . Q2H1M ONE Rx#:[id number] Oral 60 Blood Product 259 Platelet Pheresis Pas 259 Psoralen Unit [id number] Output: Urine 600 900 Other: Voiding Method Indwelling Catheter Indwelling Catheter - Labs CBC & Chem 7: 12/20/23 05:50 12/20/23 05:50 Labs: Abnormal Lab Results - Last 24 Hours (Table) 12/20/23 12/20/23 12/20/23 Range/Units 01:14 05:50 05:50 WBC 17.25 H (4.50-10.00) X 10*3/uL RBC 3.97 L (4.10-5.20) X 10*6/uL Hgb 11.8 L (12.0-15.0) g/dL Hct 35.1 L (37.2-46.3) % RDW 22.2 H (11.5-14.5) % Plt Count 8 A* (140-440) X 10*3/uL Immature Gran # 0.20 H (0.00-0.04) X 10*3/uL Neutrophils # 16.23 H (1.80-7.70) X 10*3/uL Lymphocytes # 0.58 L (0.90-5.00) X 10*3/uL Eosinophils # 0 L (0.04-0.35) X 10*3/uL Immature Plt Fraction 32.0 H (1.1-6.1) % PT (10.0-12.5) sec INR (<1.2) APTT (22.0-30.0) sec Fibrinogen (200-500) mg/dL D-Dimer (<0.60) mg/L FEU Sodium 134 L (135-145) mmol/L Anion Gap 15.60 H (4.00-12.00) mmol/L BUN 79.7 H (9.0-27.0) mg/dL Creatinine 1.9 H (0.6-1.5) mg/dL Est GFR (CKD-EPI) 33 L (>=60) BUN/Creatinine Ratio 41.95 H (12.00-20.00) Ratio Glucose 184 H (70-110) mg/dL POC Glucose (mg/dL) 152 H (70-110) mg/dL Calcium 6.7 L (8.7-10.3) mg/dL Phosphorus 5.2 H (2.4-5.1) mg/dL Total Bilirubin 7.2 H (0.3-1.2) mg/dL AST 244 H (13-35) U/L ALT 50 H (8-44) U/L Alkaline Phosphatase 298 H (41-126) U/L Total Protein 4.1 L (6.2-8.2) g/dL Albumin 2.1 L (3.8-4.9) g/dL Albumin/Globulin Ratio 1.05 L (1.60-3.17) Ratio 12/20/23 12/20/23 Range/Units 09:05 20:30 WBC (4.50-10.00) X 10*3/uL RBC (4.10-5.20) X 10*6/uL Hgb (12.0-15.0) g/dL Hct (37.2-46.3) % RDW (11.5-14.5) % Plt Count (140-440) X 10*3/uL Immature Gran # (0.00-0.04) X 10*3/uL Neutrophils # (1.80-7.70) X 10*3/uL Lymphocytes # (0.90-5.00) X 10*3/uL Eosinophils # (0.04-0.35) X 10*3/uL Immature Plt Fraction (1.1-6.1) % PT 20.1 H 19.1 H (10.0-12.5) sec INR 2.0 H 1.9 H (<1.2) APTT 45.6 H 44.4 H (22.0-30.0) sec Fibrinogen 197 L (200-500) mg/dL D-Dimer >34.10 H (<0.60) mg/L FEU Sodium (135-145) mmol/L Anion Gap (4.00-12.00) mmol/L BUN (9.0-27.0) mg/dL Creatinine (0.6-1.5) mg/dL Est GFR (CKD-EPI) (>=60) BUN/Creatinine Ratio (12.00-20.00) Ratio Glucose (70-110) mg/dL POC Glucose (mg/dL) (70-110) mg/dL Calcium (8.7-10.3) mg/dL Phosphorus (2.4-5.1) mg/dL Total Bilirubin (0.3-1.2) mg/dL AST (13-35) U/L ALT (8-44) U/L Alkaline Phosphatase (41-126) U/L Total Protein (6.2-8.2) g/dL Albumin (3.8-4.9) g/dL Albumin/Globulin Ratio (1.60-3.17) Ratio
[2023-12-21 06:38] LABS: Anisocytosis Moderate; Basophils % (A) 0 %; Eosinophils % (A) 0 %; HCT 35.1 % (34.0-46.0); Hypochromasia Slight; Lymphocytes # (A) 0.5 k/uL (1.0-4.8); Lymphocytes % (A) 9 %; MCH 29.3 pg (25.0-35.0); MCHC 31.3 g/dL (31.0-37.0); MCV 93.6 fL (80.0-100.0); Macrocytosis Slight; Mean Platelet Volume 8.6; Monocytes # (A) 0.3 k/uL (0-1.0); Monocytes % (A) 5 %; Neutrophils # (A) 5.2 k/uL (1.3-7.7); Neutrophils % (A) 84 %; RBC 3.75 m/uL (3.80-5.40); RDW 22.1 % (11.5-15.5); WBC 6.2 k/uL (3.8-10.6)
[2023-12-21 06:54] LABS: Platelet Count 10 k/uL (150-450)
[2023-12-21 07:03] LABS: ALT 48 U/L (4-34); AST 312 U/L (14-36); African American GFR (CKD) 48 (>60 ml/min/1.73 sqM); Albumin 1.7 g/dL (3.5-5.0); Albumin/Globulin Ratio 0.6; Alkaline Phosphatase 259 U/L (38-126); Anion Gap 8 mmol/L; Blood Urea Nitrogen 83 mg/dL (7-17); Calcium 6.6 mg/dL (8.4-10.2); Carbon Dioxide 28 mmol/L (22-30); Chloride 97 mmol/L (98-107); Globulin 2.7 g/dL; Glucose 135 mg/dL (74-99); Magnesium 2.5 mg/dL (1.6-2.3); Non-African American GFR(CKD) 41 (>60 ml/min/1.73 sqM); Phosphorus 4.9 mg/dL (2.5-4.5); Sodium 133 mmol/L (137-145); Total Bilirubin 11.2 mg/dL (0.2-1.3); Total Protein 4.4 g/dL (6.3-8.2)
[2023-12-21 07:20] LABS: Partial Thromboplastin Time 49.1 sec (22.0-30.0); Prothrombin Time 19.7 sec (10.0-12.5)
--- NOTE | 2023-12-21 10:54 | P.PN ---
Subjective Patient is seen in follow-up for acute kidney injury. Renal function better. Has Perry catheter. Nonoliguric. Quite lethargic. Vital signs are stable. General: No acute distress. HEENT: Head exam is unremarkable. LUNGS: No audible rhonchi or wheezes. HEART: Rate and Rhythm are regular. ABDOMEN: Nontender. EXTREMITITES: 2+ edema. Objective - Vital Signs Vital signs: Vital Signs Temp 98.2 F 12/21/23 07:05 Pulse 70 12/21/23 07:05 Resp 14 12/21/23 08:00 BP 139/78 12/21/23 07:05 Pulse Ox 96 12/21/23 07:05 FiO2 Intake & Output 12/20/23 12/21/23 12/21/23 18:59 06:59 18:59 Intake Total 259 1460 Output Total 900 1500 Balance -641 -40 Weight 142.6 kg Intake: Intake, IV Titration 900 Amount Dextrose 5% in Water 1, 900 000 ml @ 75 mls/hr IV . [id number] KARLI with Sodium Bicarb (1 Meq/ml) 150 ml Rx#:[id number] Oral 560 Blood Product 259 Platelet Pheresis Pas 259 Psoralen Unit [id number] Output: Urine 900 1500 Emesis 0 Other: Voiding Method Indwelling Catheter Indwelling Catheter Indwelling Catheter # Bowel Movements 0 - Labs CBC & Chem 7: 12/21/23 06:10 12/21/23 06:10 Labs: Abnormal Lab Results - Last 24 Hours (Table) 12/20/23 12/20/23 12/20/23 Range/Units 05:50 09:05 20:30 RBC (3.80-5.40) m/uL Hgb (11.4-16.0) gm/dL RDW (11.5-15.5) % Plt Count (150-450) k/uL Lymphocytes # (1.0-4.8) k/uL PT 20.1 H 19.1 H (10.0-12.5) sec INR 2.0 H 1.9 H (<1.2) APTT 45.6 H 44.4 H (22.0-30.0) sec Fibrinogen 197 L (200-500) mg/dL D-Dimer >34.10 H (<0.60) mg/L FEU Sodium 134 L (135-145) mmol/L Chloride (98-107) mmol/L Anion Gap 15.60 H (4.00-12.00) mmol/L BUN 79.7 H (9.0-27.0) mg/dL Creatinine 1.9 H (0.6-1.5) mg/dL Est GFR (CKD-EPI) 33 L (>=60) BUN/Creatinine Ratio 41.95 H (12.00-20.00) Ratio Glucose 184 H (70-110) mg/dL Calcium 6.7 L (8.7-10.3) mg/dL Phosphorus 5.2 H (2.4-5.1) mg/dL Magnesium (1.6-2.3) mg/dL Total Bilirubin 7.2 H (0.3-1.2) mg/dL AST 244 H (13-35) U/L ALT 50 H (8-44) U/L Alkaline Phosphatase 298 H (41-126) U/L Total Protein 4.1 L (6.2-8.2) g/dL Albumin 2.1 L (3.8-4.9) g/dL Albumin/Globulin Ratio 1.05 L (1.60-3.17) Ratio 12/21/23 12/21/23 12/21/23 Range/Units 06:10 06:10 06:10 RBC 3.75 L (3.80-5.40) m/uL Hgb 11.0 L (11.4-16.0) gm/dL RDW 22.1 H (11.5-15.5) % Plt Count 10 L* (150-450) k/uL Lymphocytes # 0.5 L (1.0-4.8) k/uL PT 19.7 H (10.0-12.5) sec INR 2.0 H (<1.2) APTT 49.1 H (22.0-30.0) sec Fibrinogen (200-500) mg/dL D-Dimer (<0.60) mg/L FEU Sodium 133 L (135-145) mmol/L Chloride 97 L (98-107) mmol/L Anion Gap (4.00-12.00) mmol/L BUN 83 H (9.0-27.0) mg/dL Creatinine 1.53 H (0.6-1.5) mg/dL Est GFR (CKD-EPI) (>=60) BUN/Creatinine Ratio (12.00-20.00) Ratio Glucose 135 H (70-110) mg/dL Calcium 6.6 L (8.7-10.3) mg/dL Phosphorus 4.9 H (2.4-5.1) mg/dL Magnesium 2.5 H (1.6-2.3) mg/dL Total Bilirubin 11.2 H (0.3-1.2) mg/dL AST 312 H (13-35) U/L ALT 48 H (8-44) U/L Alkaline Phosphatase 259 H (41-126) U/L Total Protein 4.4 L (6.2-8.2) g/dL Albumin 1.7 L (3.8-4.9) g/dL Albumin/Globulin Ratio (1.60-3.17) Ratio Assessment and Plan Plan: Assessment: 1. 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 Elevated uric acid level, phosphorus level, mild hyperkalemia as well as hypocalcemia all suggestive of tumor lysis syndrome. Patient started chemotherapy December 16, 2023. Status post rasburicase December 18, 2023. Received IV contrast December 13, 2023 for CTA. Baseline creatinine 0.8-0.9 and peaked at 2.0 this admission - 1.53 today. No hydronephrosis noted on kidney ultrasound. 2. Metastatic breast cancer being followed by oncology. Patient has history of bilateral mastectomies and completed chemo in March 2023. 3. Metabolic acidosis secondary to acute kidney injury and IV fluids. Improved with bicarb drip. 4. DIC being followed by oncology. 5. Recent laparoscopic cholecystectomy December 09, 2023. 6. History of adrenal sufficiency maintained on Solu-Cortef. 7. Edema. Plan: Stop bicarb drip. Add normal saline at 50 cc an hour. Strict I's and O's. Continue to monitor renal function and urine output. Avoid nephrotoxins. Continue to assess daily for need for renal replacement therapy. No urgency at this time.
--- NOTE | 2023-12-21 11:05 | XR ---
EXAMINATION TYPE: XR chest 1V portable DATE OF EXAM: 12/21/2023 Comparison: 12/20/2023 Clinical History: 43-year-old female follow up Findings: Left PICC tip in the right atrium. Patient rotated towards the left ultrasound and normal cardiac and mediastinal contours. Heart appears mildly enlarged. Low lung volumes. Interstitial density persists . Patchy bibasilar opacities similar to slightly worsening. Impression: Hypoventilatory changes. Patchy airspace disease in the lower lungs similar to slightly worsened.
[2023-12-21] MEDS: SODIUM CHLORIDE 0.9% 1,000 ML IV SCH (11:19)
[2023-12-21] MEDS: LACTULOSE 20 GM/30 ML CUP PO SCH (11:20)
[2023-12-21] MEDS: PHYTONADIONE 5 MG in SODIUM CHLORIDE 0.9% 50 ML IVPB STA (11:23)
[2023-12-21] MEDS: LACTULOSE 200 GM/300 ML (FROM 1/2 GAL JUG) RECTAL SCH (11:26)
[2023-12-21] MEDS ORDERED: ZINC OXIDE PASTE (Z-GUARD) 1 APPLIC TOPICAL PRN (12:01)
--- NOTE | 2023-12-21 13:12 | P.PN ---
Subjective Progress Note Date: 12/21/23 CHIEF COMPLAINT: Abdominal pain HISTORY OF PRESENT ILLNESS: Patient remains obtunded and lethargic. Total bilirubin is up to 11. She is jaundiced. Medicine service has ordered an ammonia level. Oncology service is following. Patient did receive a dose of IV Lasix yesterday for fluid overload. WBC 6.2 Hgb 11 platelets 10 INR 2.0 sodium is 133 potassium is 5.0 creatinine 1.53 total bilirubin up from 7.2-11.2 AST 312 ALT 48 alk phos 259 ammonia level 18 PHYSICAL EXAM: VITAL SIGNS: Reviewed. GENERAL: Lethargic HEENT: Sclera icterus present ABDOMEN: Soft. Nondistended. Mild diffuse tenderness Skin: Jaundiced ASSESSMENT: 1. Metastatic breast cancer with liver metastasis and Liver failure 2. Intractable nausea 3. DIC followed by oncology service 4. Fluid collection in the pelvis on CT likely old blood 5. Recent laparoscopic cholecystectomy on December 09, 2023 with liver lesion biop sy. 6. History of breast cancer status post bilateral mastectomy, chemo and radiation PLAN: -No surgical intervention planned -Continue supportive care -Patient followed by oncology service -Continue full liquids. Continue Ensure for protein supplement Physician Superintendent Custodian Janitor note has been reviewed by physician. Signing provider agrees with the documented findings, assessment, and plan of care. Objective - Vital Signs Vital signs: Vital Signs Temp 97.4 F L 12/21/23 12:32 Pulse 93 12/21/23 12:32 Resp 18 12/21/23 12:32 BP 106/60 12/21/23 12:32 Pulse Ox 95 12/21/23 12:14 FiO2 Intake & Output 12/20/23 12/21/23 12/21/23 18:59 06:59 18:59 Intake Total 259 1460 0 Output Total 900 1500 Balance -641 -40 0 Weight 142.6 kg Intake: Intake, IV Titration 900 Amount Dextrose 5% in Water 1, 900 000 ml @ 75 mls/hr IV . [id number] KARLI with Sodium Bicarb (1 Meq/ml) 150 ml Rx#:[id number] Oral 560 Blood Product 259 0 Platelet Pheresis Pas 0 Psoralen Unit [id number] Platelet Pheresis Pas 259 Psoralen Unit [id number] Output: Urine 900 1500 Emesis 0 Other: Voiding Method Indwelling Catheter Indwelling Catheter Indwelling Catheter # Bowel Movements 0 - Labs CBC & Chem 7: 05/07/24 06:10 12/21/23 06:10 Labs: Abnormal Lab Results - Last 24 Hours (Table) 12/20/23 12/21/23 12/21/23 Range/Units 20:30 06:10 06:10 RBC 3.75 L (3.80-5.40) m/uL Hgb 11.0 L (11.4-16.0) gm/dL RDW 22.1 H (11.5-15.5) % Plt Count 10 L* (150-450) k/uL Lymphocytes # 0.5 L (1.0-4.8) k/uL PT 19.1 H (10.0-12.5) sec INR 1.9 H (<1.2) APTT 44.4 H (22.0-30.0) sec Sodium 133 L (137-145) mmol/L Chloride 97 L (98-107) mmol/L BUN 83 H (7-17) mg/dL Creatinine 1.53 H (0.52-1.04) mg/dL Glucose 135 H (74-99) mg/dL Calcium 6.6 L (8.4-10.2) mg/dL Phosphorus 4.9 H (2.5-4.5) mg/dL Magnesium 2.5 H (1.6-2.3) mg/dL Total Bilirubin 11.2 H (0.2-1.3) mg/dL AST 312 H (14-36) U/L ALT 48 H (4-34) U/L Alkaline Phosphatase 259 H (38-126) U/L Total Protein 4.4 L (6.3-8.2) g/dL Albumin 1.7 L (3.5-5.0) g/dL 12/21/23 Range/Units 06:10 RBC (3.80-5.40) m/uL Hgb (11.4-16.0) gm/dL RDW (11.5-15.5) % Plt Count (150-450) k/uL Lymphocytes # (1.0-4.8) k/uL PT 19.7 H (10.0-12.5) sec INR 2.0 H (<1.2) APTT 49.1 H (22.0-30.0) sec Sodium (137-145) mmol/L Chloride (98-107) mmol/L BUN (7-17) mg/dL Creatinine (0.52-1.04) mg/dL Glucose (74-99) mg/dL Calcium (8.4-10.2) mg/dL Phosphorus (2.5-4.5) mg/dL Magnesium (1.6-2.3) mg/dL Total Bilirubin (0.2-1.3) mg/dL AST (14-36) U/L ALT (4-34) U/L Alkaline Phosphatase (38-126) U/L Total Protein (6.3-8.2) g/dL Albumin (3.5-5.0) g/dL
--- NOTE | 2023-12-21 14:48 | CT ---
EXAMINATION TYPE: CT brain wo con CT DLP: 1199.8 mGycm, Automated exposure control for dose reduction was used. DATE OF EXAM: 12/21/2023 2:41 PM COMPARISON: None. CLINICAL INDICATION:Female, 43 years old with history of AMS, AMS TECHNIQUE: Brain: Axial CT images of the brain were obtained with coronal and sagittal reformats created and rev iewed. Contrast used: None. Oral contrast used: None. FINDINGS: Brain: Extra-axial spaces: No abnormal extra-axial fluid collections. Ventricular system: Within normal limits Cerebral parenchyma: No acute intraparenchymal hemorrhage or mass effect. The bates-white junction is well differentiated. Cerebellum: Unremarkable. Mass effect: No evidence of midline shift. Intracranial vasculature: unremarkable Soft tissues: Normal. Calvarium/osseous structures: No depressed skull fracture. Paranasal sinuses and mastoid air cells: Mild scattered paranasal sinus disease. Visualized orbits: Orbital contents are intact. IMPRESSION: No acute intracranial process.
--- NOTE | 2023-12-21 15:13 | P.PN ---
Subjective Progress Note Date: 12/21/23 The patient was quite drowsy, lethargic when evaluated. She would moan occasionally. She was arousable and was able to answer some simple questions appropriately. There is marked jaundice Objective - Vital Signs Vital signs: Vital Signs Temp 97.7 F 12/21/23 14:08 Pulse 93 12/21/23 14:08 Resp 18 12/21/23 14:08 BP 138/71 12/21/23 14:08 Pulse Ox 95 12/21/23 12:14 FiO2 Intake & Output 12/20/23 12/21/23 12/21/23 18:59 06:59 18:59 Intake Total 259 1460 345 Output Total 900 1500 Balance -641 -40 345 Weight 142.6 kg Intake: Intake, IV Titration 900 Amount Dextrose 5% in Water 1, 900 000 ml @ 75 mls/hr IV . [id number] KARLI with Sodium Bicarb (1 Meq/ml) 150 ml Rx#:[id number] Oral 560 Blood Product 259 345 Platelet Pheresis Pas 345 Psoralen Unit [id number] Platelet Pheresis Pas 259 Psoralen Unit [id number] Output: Urine 900 1500 Emesis 0 Other: Voiding Method Indwelling Catheter Indwelling Catheter Indwelling Catheter # Bowel Movements 0 - Constitutional General appearance: Present: no acute distress - EENT Eyes: Present: PERRLA, scleral icterus ENT: Present: hearing grossly normal - Respiratory Respiratory: bilateral: CTA - Cardiovascular Rhythm: regular Heart sounds: normal: S1, S2 - Gastrointestinal General gastrointestinal: Present: decreased bowel sounds, soft Localized gastrointestinal: tender: RUQ, epigastric periumbilical - Integumentary Integumentary: Present: jaundiced - Neurologic Neurologic Comment(s): Moving all 4 extremities. No definite focal deficits - Musculoskeletal Musculoskeletal: Present: generalized weakness - Psychiatric Psychiatric Comment(s): Mental status as above - Labs CBC & Chem 7: 12/21/23 06:10 12/21/23 06:10 Labs: Abnormal Lab Results - Last 24 Hours (Table) 12/20/23 12/21/23 12/21/23 Range/Units 20:30 06:10 06:10 RBC 3.75 L (3.80-5.40) m/uL Hgb 11.0 L (11.4-16.0) gm/dL RDW 22.1 H (11.5-15.5) % Plt Count 10 L* (150-450) k/uL Lymphocytes # 0.5 L (1.0-4.8) k/uL PT 19.1 H (10.0-12.5) sec INR 1.9 H (<1.2) APTT 44.4 H (22.0-30.0) sec Sodium 133 L (137-145) mmol/L Chloride 97 L (98-107) mmol/L BUN 83 H (7-17) mg/dL Creatinine 1.53 H (0.52-1.04) mg/dL Glucose 135 H (74-99) mg/dL Calcium 6.6 L (8.4-10.2) mg/dL Phosphorus 4.9 H (2.5-4.5) mg/dL Magnesium 2.5 H (1.6-2.3) mg/dL Total Bilirubin 11.2 H (0.2-1.3) mg/dL AST 312 H (14-36) U/L ALT 48 H (4-34) U/L Alkaline Phosphatase 259 H (38-126) U/L Total Protein 4.4 L (6.3-8.2) g/dL Albumin 1.7 L (3.5-5.0) g/dL 12/21/23 Range/Units 06:10 RBC (3.80-5.40) m/uL Hgb (11.4-16.0) gm/dL RDW (11.5-15.5) % Plt Count (150-450) k/uL Lymphocytes # (1.0-4.8) k/uL PT 19.7 H (10.0-12.5) sec INR 2.0 H (<1.2) APTT 49.1 H (22.0-30.0) sec Sodium (137-145) mmol/L Chloride (98-107) mmol/L BUN (7-17) mg/dL Creatinine (0.52-1.04) mg/dL Glucose (74-99) mg/dL Calcium (8.4-10.2) mg/dL Phosphorus (2.5-4.5) mg/dL Magnesium (1.6-2.3) mg/dL Total Bilirubin (0.2-1.3) mg/dL AST (14-36) U/L ALT (4-34) U/L Alkaline Phosphatase (38-126) U/L Total Protein (6.3-8.2) g/dL Albumin (3.5-5.0) g/dL Assessment and Plan (1) Hepatic insufficiency Narrative/Plan: The patient has developed progressive hepatic insufficiency, with aggressive increase in bilirubin, and persistent elevation of other liver enzymes. Her mental status is felt to be related to the same, due to hepatic encephalopathy and/or potentiated effect of her pain medications from hepatic insufficiency. - This clinical picture is expected in this patient, after giving chemotherapy for rapidly progressive malignancy involving the liver. If the patient is able to be supported through the acute phase, then typically there is spontaneous imp rovement in a few days, as tumor burden , and inflammation from chemotherapy- tumor interaction diminishes, Assuming that the chemotherapy is effective. This was discussed in detail with the patient and her prior to administration of the chemotherapy - Continue supportive care with IV hydration. Case discussed in detail with nursing. Given decreased stool output, as well as ongoing opioid use and possibility of hepatic encephalopathy, lactulose will be added Current Visit: Yes Status: Acute Code(s): K72.90 - HEPATIC FAILURE, UNSPECIFIED WITHOUT COMA SNOMED Code(s): 658003253 (2) DIC (disseminated intravascular coagulation) Narrative/Plan: This is persistent, due to underlying malignancy. There is also likely some contribution to the coagulopathy from her liver insufficiency. Fortunately the patient does not appear to have any major bleeding, with some minor oozing from the nose and gums noted. Hemoglobin has remained fairly stable. Continue aggressive supportive care. Patient will be transfused a unit of platelets for platelet count of 10. Repeat IV vitamin K. Transfuse cryoprecipitate to keep fibrinogen level above 150. Continue to monitor DIC labs regularly. - it was also discussed with nursing to inform us immediately if the patient developed any persistent bleeding, in which case Kcentra or FFP Can be used for acute reversal - Check CT brain to rule out any intracranial bleed especially in view of change in mental status Current Visit: Yes Status: Acute Priority: High Code(s): D65 - DISSEMINATED INTRAVASCULAR COAGULATION SNOMED Code(s): 54751584 (3) Stage IV breast cancer in female Narrative/Plan: The patient has biopsy-proven liver metastasis, and was started on chemotherapy on a somewhat emergent basis because of progressive liver insufficiency and related symptoms. She is status post 1 cycle of Taxol. As noted above, assuming that this is effective, and the patient can be supported through the expected, resultant liver insufficiency over the next few days, would expect to see her liver numbers as well as clinical situation improve Current Visit: Yes Status: Acute Code(s): C50.919 - MALIGNANT NEOPLASM OF UNSP SITE OF UNSPECIFIED FEMALE BREAST SNOMED Code(s): 94583793 (4) Acute kidney injury Narrative/Plan: [place] to be due to hepatorenal syndrome and/or tumor lysis. The patient has received rasburicase with drop in uric acid to less than 8. She is undergoing hydration, with nephrology following. Continue aggressive supportive care. Repeat rasburicase if uric acid rises to greater than 8 again Current Visit: Yes Status: Acute Priority: High Code(s): N17.9 - ACUTE KIDNEY FAILURE, UNSPECIFIED SNOMED Code(s): 41449983 Plan: Prognosis remains quite guarded.
--- NOTE | 2023-12-21 16:32 | US ---
EXAMINATION TYPE: US liver DATE OF EXAM: 12/21/2023 COMPARISON: CT, US CLINICAL INDICATION: Female, 43 years old with history of recent choly elevated lft and bilirubin; Hx of recent cholecystectomy. Elevated LFT and bilirubin. TECHNIQUE: Multiple sonographic images of the right upper quadrant are obtained. FINDINGS: EXAM MEASUREMENTS: Liver Length: 19.3 cm Gallbladder Wall: Surgically absent CBD: Obscured Right Kidney: 13.0 x 5.8 x 5.3 cm BEHAVIOR MANAGEMENT SPECIALIST NOTES: Exam is extremely difficult and limited due to gas and patient body habitus. Pancreas: Not well seen. Liver: *Enlarged and very heterogeneous/coarse in echotexture. Gallbladder: Surgically absent Evidence for sonographic Pastor's sign: No CBD: Obscured Right Kidney: *Enlarged. Lower pole is limited due to gas. IMPRESSION: Heterogenous enlarged liver correlate with serum markers for hepatocellular disease. No suspicious ma sses.
[2023-12-22 03:14] LABS: Glucose,Whole Blood 74 mg/dL (70-110)
[2023-12-22] MEDS: SODIUM CHLORIDE 0.9% 500 ML 1,000 ML IV ONE (03:28)
[2023-12-22 03:36] LABS: Glucose,Whole Blood 70 mg/dL (70-110)
[2023-12-22] MEDS: DEXTROSE 50% SYRINGE 50 ML IVP PRN (03:40)
[2023-12-22 03:56] LABS: Glucose,Whole Blood 112 mg/dL (70-110)
[2023-12-22 04:20] LABS: Glucose,Whole Blood 118 mg/dL (70-110)
[2023-12-22 04:21] LABS: ABG Base Excess 2.8 mmol/L; ABG HCO3 26 mmol/L (21-25); ABG Oxygen Saturation 96.1 % (94-97); ABG PCO2 35 mmHg (35-45); ABG PH 7.49 (7.35-7.45); ABG PO2 73 mmHg (83-108); ABG TCO2 27 mmol/L (19-24); Allen Test Performed? Yes
[2023-12-22 04:44] LABS: ALT 71 U/L (4-34); AST 408 U/L (14-36); African American GFR (CKD) 40 (>60 ml/min/1.73 sqM); Albumin 1.5 g/dL (3.5-5.0); Albumin/Globulin Ratio 0.6; Alkaline Phosphatase 235 U/L (38-126); Anion Gap 10 mmol/L; Blood Urea Nitrogen 87 mg/dL (7-17); Calcium 6.5 mg/dL (8.4-10.2); Carbon Dioxide 27 mmol/L (22-30); Chloride 99 mmol/L (98-107); Globulin 2.4 g/dL; Glucose 113 mg/dL (74-99); Magnesium 2.6 mg/dL (1.6-2.3); Non-African American GFR(CKD) 34 (>60 ml/min/1.73 sqM); Phosphorus 5.8 mg/dL (2.5-4.5); Potassium 5.5 mmol/L (3.5-5.1); Sodium 136 mmol/L (137-145); Total Bilirubin 12.3 mg/dL (0.2-1.3); Total Protein 3.9 g/dL (6.3-8.2)
[2023-12-22 04:59] LABS: Partial Thromboplastin Time 49.7 sec (22.0-30.0); Prothrombin Time 20.5 sec (10.0-12.5); Uric Acid 7.2 mg/dL (3.7-7.4)
[2023-12-22] MEDS: NOREPINEPHRINE 4 MG in SODIUM CHLORIDE 0.9% 250 ML IV SCH (05:28)
[2023-12-22 05:37] LABS: Anisocytosis Moderate; HCT 30.3 % (34.0-46.0); HGB 9.6 gm/dL (11.4-16.0); Hypochromasia Moderate; MCH 29.7 pg (25.0-35.0); MCHC 31.5 g/dL (31.0-37.0); MCV 94.4 fL (80.0-100.0); Macrocytosis Slight; Mean Platelet Volume 8.1; RBC 3.21 m/uL (3.80-5.40); RDW 22.1 % (11.5-15.5)
[2023-12-22 06:03] LABS: Platelet Count 6 k/uL (150-450)
--- NOTE | 2023-12-22 06:13 | P.PN ---
Subjective Progress Note Date: 12/21/23 This is a pleasant 43-year-old female who presented to the emergency department with increased abdominal pain, postop nausea and vomiting with decreased oral intake and dehydration. Patient recently was hospitalized underwent liver biopsy along with acute cholecystectomy with general surgery Dr. Vuong last week. Patient reports she continued to have abdominal pain and difficulty tolerating oral intake and recently started developing nausea and vomiting again. Patient reports severe abdominal pain with no improvement. Patient reports having minimal bowel movements although is passing gas and is urinating with no difficulties. Labs reviewed on admission and had a D-dimer done which was significantly elevated underwent CTA with no suggestion of PE. Other labs reveal an elevated white count of 20.8, hemoglobin stable at 14.4, platelets significantly low at 17, INR 2.0, D-dimer above 34, sodium 135, potassium 3.7, creatinine 1.01, lactic acid was 2.0, total bili is 5.9 with an AST of 229 and ALT is 78 and alk phos is 365, lipase was 34. Urinalysis was negative and influenza/COVID/RSV are all negative as well. Patient was admitted for dehydration with general surgery as well as oncology on consult. Patient did undergo a liver biopsy last admission during the cholecystectomy which remains pending. Patient having an increasing white count this morning of 26 with no fevers noted and empiric antibiotics started and will consult infectious disease and appreciate input and recommendations. EKG shows sinus rhythm, abdominal pelvis CT shows postcholecystectomy changes with high density fluid in the pelvis around the uterus posteriorly representing possible blood products with n o evidence of pneumoperitoneum or organizing peripheral enhancing fluid collection to suggest abscess, persistent liver lesions as noted on MRI from 422 concerning of metastatic disease until proven otherwise and a trace bilateral pleural effusions. Patient is on room air and denies significant shortness of breath although does feel exerted with minimal exertion. Will add incentive spirometer. 12/15/2023 Patient is seen in follow-up this morning lethargic although arousable. Patient is scheduled to undergo a PICC line as oncology is following and discussing initiating Taxol chemotherapy while inpatient. Repeat ultrasound showing post cholecystectomy changes. Per oncology, liver biopsy that was performed last week is positive for metastatic breast cancer. Patient continues to report some nausea and vomiting with decreased oral intake and continued abdominal pain. Patient is having some generalized edema noted and was given a dose of Lasix. Patient's labs consistent with DIC and is status post cryoprecipitate. Oncology following closely. White count is trending down and patient is maintained on antibiotics. Infectious diseases following. Overall prognosis remains guarded. 12/16/2023 Patient seen and evaluated in follow-up status post PICC line placement with oncology following closely with plans of initiating chemotherapy while inpatient today. Multiple medical consultations following. Patient was initiated on antibiotics and white count is trending down. Infectious disease following and will be monitored closely off antibiotic therapy. Patient will receive Taxol and will be monitored closely. Patient also to receive platelets today. Continue with current regimen with oncology following closely. Encouraged to increase activity as tolerated. Patient reports generalized weakness although is getting up and walking to the bathroom. Patient does feel somewhat short of breath with exertion. Patient continues with generalized edema noted of the lower extremities as well as upper and abdomen. Will continue to encourage elevating lower extremities while at rest and may use Mark wraps or compression stockings to assist with swelling. Diet has been advanced per surgery and boost supplements also being added as patient reports continued abdominal pain with not much of an appetite. 12/17/2023 Patient is seen in follow-up today status post chemotherapy of Taxol. Patient reports to feeling significantly tired and weak with continued abdominal pain and nausea. Patient has been using Zofran and general surgery following as patient is recent status post lap cholecystectomy. No plans for surgical intervention at this time. Patient is receiving platelets today and other labs reviewed with oncology following closely undergoing further DIC treatment and workup. Infectious disease following as well and patient is being closely monitored off antibiotic therapy. White count remains elevated. Patient is afebrile. Patient is maintained on full liquids although reports not eating much and not tolerating. Patient has significant pain when attempting to eat or drink and associated with severe nausea. Encouraged patient to increase activity as tolerated and attempt to sit up in the chair. Ensure supplements being added. Patient appears jaundice and edematous. 0 12/18/2023 Patient is evaluated today on the medical floor. Patient is status post chemotherapy of Taxol. She continues to feel significantly weak and is requiring assistance to get up to the restroom. Patient states that she could possibly sit up in the chair however states that she is too weak to walk from the chair to the restroom. Patient continues to report significant nausea and abdominal discomfort. Patient did receive a dose of cryoprecipitate for fibrinogen level and today's blood work is showing to 15 with improvement in her PTT/PTT her INR remained stable at 2.2. Patient's calcium level was low today at 6.3, uric acid and phosphorus levels are elevated. Her creatinine has increased up to 1.68 with a sodium level of 133. Patient states that she does feel dehydrated being as she has had poor oral intake and is really unable to tolerate much fluids at this time. Her white blood cell count remains elevated at 22.6. Chest x-ray reveals no acute process. 12/19/2023 Patient evaluated in follow up today. Continues to report abdominal discomfort right upper quadrant and also lower back pain. Patient has become increasingly weak and having difficulty with ambulation requiring multiple staff members to help her up to the restroom. Patient has been increasingly restless throughout the day and states she is unable to get comfortable in the bed. She is also anxious. Wanting the IV fluids turned down as she reports feeling puffy and fluid overloaded. Concern for tumor lysis syndrome and received a dose of rasburicase yesterday. Nephrology was consulted. Her creatinine continues to worsen today BUN is 70.9 and creatinine 2.0. Patient was found to have significant urinary retention with over 2L in the urinary bladder and an indwelling catheter has been placed. LFTs remain elevated. Sodium improved to 135, potassium 5.3 today. 12/20/2023 Patient is evaluated today in follow up on the medical floor. Was having increasing lower back pain, and discomfort yesterday and into the evening which was not controlled by norco. Patient states the dilaudid made her loopy and morphine was then given. Patient was sedated upon evaluation this AM and was given a dose of narcan and respirations did improve. Patient reports not being able to get comfortable and has increasing peripheral edema. Fluids will be cut back and patient will be given a dose of IV lasix today. Platelet count found to be 8 and also fibrinogen is 197. Patient is scheduled to receive a unit of platelets today. Patient has received 2 units of platelets and 2 units of cryoprecipitate so far this admission. White blood cell count slightly improved to 17.25. BUN 79.7, creatinine 1.9. Total bilirubin 7.2. 12/21/2023 Patient remains significantly encephalopathic on todays examination. She has worsening jaundice. Continues to have blood in the oral cavity. did receive a do se of platelets yesterday and repeat today is 10, patient is scheduled to receive 1 unit of platelets. Chest xray today reveals hypoventilatory changes with patchy airspace disease in the lower lungs similar to slightly worsened. Patient did receive a dose of IV lasix yesterday. Brain CT reveals no acute changes. Her white blood cell count has normalized to 6.2 and remains off antibiotic therapy. ID is following along. Sodium is 133, BUN 83, creatinine 1.53, calcium 6.6, phosphorous 4.9, magnesium 2.5, total bilirubin 11.2. AST/ALT/alk phos remain elevated. Patient remains on IV solu-cortef. Patient is received fluids with bicarb gtt at 50 and normal saline at 50. Nephrology following. Indwelling catheter remains in place. Patient remains afebrile. Review of systems: Constitutional: reports of extreme fatigue, no fever, or chills Cardiovascular: No reports of chest pain or palpitations Respiratory: reports of occasional shortness of breath GI: reports of nausea, no vomiting, or diarrhea : No reports of dysuria or retention Neurovascular: reports of generalized weakness and overall body swelling All medications have been reviewed PHYSICAL EXAMINATION: GENERAL: The patient is asleep but arousable, alert and oriented x1 encephalopathic. Appears exhausted. Well developed, well nourished. Ill- appearing. Morbidly obese HEENT: Pupils are round and equally reacting to light. EOMI. No scleral icterus. No conjunctival pallor. Normocephalic, atraumatic. No pharyngeal erythema. No thyromegaly. CARDIOVASCULAR: S1 and S2 muffled PULMONARY: Chest is clear to auscultation, no wheezing or crackles. ABDOMEN: Soft, tender, nondistended, normoactive bowel sounds. No palpable organomegaly. mild RUQ tenderness. MUSCULOSKELETAL: No joint swelling or deformity. EXTREMITIES: No cyanosis, clubbing, or pedal edema. Bilateral upper and lower extremities edematous NEUROLOGICAL: Gross neurological examination did not reveal any focal deficits. Diffusely weak SKIN: No rashes. Jaundice Assessment: Nausea vomiting, decreased oral intake with dehydration and continued abdominal pain, multifactorial, most likely secondary to metastatic disease Acute kidney injury prerenal secondary to dehydration patient has had poor oral intake will be started on IV fluids, there is also concern for tumor lysis syndrome. Nephrology was consulted. Hyperkalemia secondary to the acute kidney injury Hypovolemic hyponatremia due to dehydration Elevated uric acid patient will receive a dose of rasburicase as recommended by oncology Thrombocytopenia patient will receive a unit of platelets today. Possible tumor lysis syndrome Urinary retention require indwelling scruggs catheter Status post laparoscopic cholecystectomy last week Significant leukocytosis, multifactorial, likely reactive, trending down and monitored off antibiotics currently. 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 History of known breast cancer status post bilateral mastectomy in [place] in the summer 2022 with radiation treatment completed in August Chemotherapy induced adrenal insufficiency Morbid obesity with a BMI of 40.7 GI prophylaxis DVT prophylaxis Full code Plan: Patient was admitted with continued abdominal pain with nausea and vomiting with general surgery following as patient is recent laparoscopic cholecystectomy on 12/09/2023. 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 Patient received a PICC line and was given Taxol chemotherapy. Oncology following ordering additional platelets and will receive platelets again today. Patient is noted to have blood in the oral cavity with increased INR was given a dose of vitamin K today by oncology. White count trending down and will monitor off antibiotic therapy. Infectious diseases following closely. Undergoing DIC monitoring, labs are consistent with DIC and is status post cryoprecipitate. Repeat labs ordered every 12 hours Encourage incentive spirometer use at least 10 times every hour while awake Patient having some generalized edema noted throughout upper and lower extremities and abdomen. Recommend Mark wraps or compression stockings to bilateral lower extremities and elevating and while at rest. Patient is extremely edematous although is most likely dehydrated, concern for third spacing. Patient appears jaundiced with elevated bilirubin and liver functions. Nephrology has given a dose of IV lasix. Nephrology following and has started the patient on bicarb gtt. Lokelma give for the hyperkalemia. Repeat labs in the AM. Physical therapy and occupational therapy consulted as patient has had prolonged hospital stay and increasing weakness. Will continue with pain management and antinausea medications. Encouraged oral intake Overall prognosis is extremely guarded at this time. Condition is critical Patient will have a brain CT and also liver ultrasound. Repeat blood work in the AM. The impression and plan of care has been dictated by Kimberly Lehman, Nurse Practitioner as directed. Dr. Leeanne MD I have performed a history and physical examination and medical decision making of this patient, discussed the same with the dictator, and agree with the dictators assessment and plan as written, documented as a scribe. Based on total visit time, I have performed more than 50% of this visit. Objective - Vital Signs Vital signs: Vital Signs Temp 98.1 F 12/22/23 02:00 Pulse 99 12/22/23 05:00 Resp 19 12/22/23 05:00 BP 95/48 12/22/23 05:00 Pulse Ox 96 12/22/23 05:00 FiO2 Intake & Output 12/21/23 12/21/23 12/22/23 06:59 18:59 06:59 Intake Total 1460 345 50 Output Total 1500 975 125 Balance -40 -630 -75 Weight 142.6 kg Intake: IV 50 Sodium Chloride 0.9% 1, 50 000 ml @ 50 mls/hr IV . Q20H KARLI Rx#:[id number] Intake, IV Titration 900 Amount Dextrose 5% in Water 1, 900 000 ml @ 75 mls/hr IV . [id number] KARLI with Sodium Bicarb (1 Meq/ml) 150 ml Rx#:[id number] Oral 560 Blood Product 345 Platelet Pheresis Pas 345 Psoralen Unit [id number] Output: Urine 1500 975 125 Emesis 0 Other: Voiding Method Indwelling Catheter Indwelling Catheter Indwelling Catheter # Bowel Movements 0 - Labs CBC & Chem 7: 12/22/23 04:22 12/22/23 04:22 Labs: Abnormal Lab Results - Last 24 Hours (Table) 12/21/23 12/21/23 12/21/23 Range/Units 06:10 06:10 06:10 RBC 3.75 L (3.80-5.40) m/uL Hgb 11.0 L (11.4-16.0) gm/dL Hct (34.0-46.0) % RDW 22.1 H (11.5-15.5) % Plt Count 10 L* (150-450) k/uL Lymphocytes # 0.5 L (1.0-4.8) k/uL PT 19.7 H (10.0-12.5) sec INR 2.0 H (<1.2) APTT 49.1 H (22.0-30.0) sec Fibrinogen (200-500) mg/dL ABG pH (7.35-7.45) ABG pO2 (83-108) mmHg ABG HCO3 (21-25) mmol/L ABG Total CO2 (19-24) mmol/L Sodium 133 L (137-145) mmol/L Potassium (3.5-5.1) mmol/L Chloride 97 L (98-107) mmol/L BUN 83 H (7-17) mg/dL Creatinine 1.53 H (0.52-1.04) mg/dL Glucose 135 H (74-99) mg/dL POC Glucose (mg/dL) (70-110) mg/dL Plasma Lactic Acid Varun (0.7-2.0) mmol/L Calcium 6.6 L (8.4-10.2) mg/dL Phosphorus 4.9 H (2.5-4.5) mg/dL Magnesium 2.5 H (1.6-2.3) mg/dL Total Bilirubin 11.2 H (0.2-1.3) mg/dL AST 312 H (14-36) U/L ALT 48 H (4-34) U/L Alkaline Phosphatase 259 H (38-126) U/L Total Protein 4.4 L (6.3-8.2) g/dL Albumin 1.7 L (3.5-5.0) g/dL 12/22/23 12/22/23 12/22/23 Range/Units 03:54 04:18 04:18 RBC (3.80-5.40) m/uL Hgb (11.4-16.0) gm/dL Hct (34.0-46.0) % RDW (11.5-15.5) % Plt Count (150-450) k/uL Lymphocytes # (1.0-4.8) k/uL PT (10.0-12.5) sec INR (<1.2) APTT (22.0-30.0) sec Fibrinogen (200-500) mg/dL ABG pH 7.49 H (7.35-7.45) ABG pO2 73 L (83-108) mmHg ABG HCO3 26 H (21-25) mmol/L ABG Total CO2 27 H (19-24) mmol/L Sodium (137-145) mmol/L Potassium (3.5-5.1) mmol/L Chloride (98-107) mmol/L BUN (7-17) mg/dL Creatinine (0.52-1.04) mg/dL Glucose (74-99) mg/dL POC Glucose (mg/dL) 112 H 118 H (70-110) mg/dL Plasma Lactic Acid Varun (0.7-2.0) mmol/L Calcium (8.4-10.2) mg/dL Phosphorus (2.5-4.5) mg/dL Magnesium (1.6-2.3) mg/dL Total Bilirubin (0.2-1.3) mg/dL AST (14-36) U/L ALT (4-34) U/L Alkaline Phosphatase (38-126) U/L Total Protein (6.3-8.2) g/dL Albumin (3.5-5.0) g/dL 12/22/23 12/22/23 12/22/23 Range/Units 04:22 04:22 04:22 RBC 3.21 L (3.80-5.40) m/uL Hgb 9.6 L (11.4-16.0) gm/dL Hct 30.3 L (34.0-46.0) % RDW 22.1 H (11.5-15.5) % Plt Count (150-450) k/uL Lymphocytes # (1.0-4.8) k/uL PT 20.5 H (10.0-12.5) sec INR 2.0 H (<1.2) APTT 49.7 H (22.0-30.0) sec Fibrinogen 191 L (200-500) mg/dL ABG pH (7.35-7.45) ABG pO2 (83-108) mmHg ABG HCO3 (21-25) mmol/L ABG Total CO2 (19-24) mmol/L Sodium 136 L (137-145) mmol/L Potassium 5.5 H (3.5-5.1) mmol/L Chloride (98-107) mmol/L BUN 87 H (7-17) mg/dL Creatinine 1.78 H (0.52-1.04) mg/dL Glucose 113 H (74-99) mg/dL POC Glucose (mg/dL) (70-110) mg/dL Plasma Lactic Acid Varun (0.7-2.0) mmol/L Calcium 6.5 L (8.4-10.2) mg/dL Phosphorus 5.8 H (2.5-4.5) mg/dL Magnesium 2.6 H (1.6-2.3) mg/dL Total Bilirubin 12.3 H (0.2-1.3) mg/dL AST 408 H (14-36) U/L ALT 71 H (4-34) U/L Alkaline Phosphatase 235 H (38-126) U/L Total Protein 3.9 L (6.3-8.2) g/dL Albumin 1.5 L (3.5-5.0) g/dL 12/22/23 Range/Units 04:22 RBC (3.80-5.40) m/uL Hgb (11.4-16.0) gm/dL Hct (34.0-46.0) % RDW (11.5-15.5) % Plt Count (150-450) k/uL Lymphocytes # (1.0-4.8) k/uL PT (10.0-12.5) sec INR (<1.2) APTT (22.0-30.0) sec Fibrinogen (200-500) mg/dL ABG pH (7.35-7.45) ABG pO2 (83-108) mmHg ABG HCO3 (21-25) mmol/L ABG Total CO2 (19-24) mmol/L Sodium (137-145) mmol/L Potassium (3.5-5.1) mmol/L Chloride (98-107) mmol/L BUN (7-17) mg/dL Creatinine (0.52-1.04) mg/dL Glucose (74-99) mg/dL POC Glucose (mg/dL) (70-110) mg/dL Plasma Lactic Acid Varun 7.8 H* (0.7-2.0) mmol/L Calcium (8.4-10.2) mg/dL Phosphorus (2.5-4.5) mg/dL Magnesium (1.6-2.3) mg/dL Total Bilirubin (0.2-1.3) mg/dL AST (14-36) U/L ALT (4-34) U/L Alkaline Phosphatase (38-126) U/L Total Protein (6.3-8.2) g/dL Albumin (3.5-5.0) g/dL Assessment and Plan Time with Patient: Greater than 30
--- NOTE | 2023-12-22 06:33 | P.CNPUL ---
History of Present Illness Consult date: 12/22/23 Requesting physician: Amrita Tinoco Reason for consult: other (Hypotension, ICU management) Chief complaint: Nausea, vomiting, weakness History of present illness: I am seeing this patient in consultation today 12/22/2023 on a rapid response for hypotension. She was noted to be obtunded and minimally responsive. She was transferred to the intensive care unit. 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 Of note, she did have a recent hospitalization for cholecystitis with cholecystectomy. There was a new liver lesion noted at this time, this was laparoscopically biopsied. Patient is obtunded and is a poor historian. Her is at bedside who provides information for HPI which is supplemented with the EMR. Patient was diagnosed with breast cancer September,. She had a bilateral mastectomy at [facility]. She was receiving chemotherapy/immunotherapy up until August,. Also, received radiation treatments. She was doing fairly well up until mid November. She developed episodes of intractable nausea and vomiting. There was associated abdominal pain she finally came to the emergency room 12/06/2023. She was diagnosed with acute cholecystitis and she was also noted to have a new liver lesions on imaging. On 12/09/2023 she did undergo a laparoscopic cholecystectomy along with laparoscopic liver biopsy. Pathology positive for metastatic non-small cell carcinoma consistent with high-grade ductal breast primary. Patient was initially discharged home on 12/11/2023. She did return to the emergency room on 12/13/2023 with chief complaint of increased weakness, reduced oral intake, continued nausea and vomiting, and abdominal pain. Follow- up abdominal CT showed post cholecystectomy changes with high density fluid in the pelvis around the uterus posteriorly representing blood products. No evidence of pneumoperitoneum or organizing peripheral enhancing fluid collection suggestive of abscess. Liver lesion redemonstrated consistent with metastatic disease.. Patient did reportedly receive a dose of Taxol while inpatient on 12/15/2023. While inpatient, the patient has had small amounts of bleeding around her urinary catheter as well as gum bleeding. Labs concerning for possible DIC. Initially, APTT 45.6, INR 2, PT 20.1, fibrinogen 197, D-dimer greater than 34 . Patient did have a chest CTA which did not show any evidence of pulmonary embolism. There was trace bilateral pleural effusions. No suspicious pulmonary nodules or lymphadenopathy within the mediastinum. CBC from yesterday: WBC count 6.2, hemoglobin 11, hematocrit 35.1, platelets 10,000. Patient has received multiple blood products including 4 packs of platelets and 2 of cryo. Yesterday she also received 5 mg of vitamin K. Most recent coagulation profile includes a PT of 20.5, INR of 2, APTT of 49.7, fibrinogen of 191. Bedside nurse denies any bloody bowel movements, melena, or hematemesis. No petechiae or purpura. Mild bruising around previous laparoscopic sites. There is some gingival bleeding. Most recent CMP from yesterday: Sodium 133, potassium 5, chloride 97, serum bicarb 28, BUN 83, creatinine 1.53, glucose 74. Uric acid level was elevated at 9.2 and is down to 6. Phosphorus 4.9. AST 312, ALT 48, ALP 259. Total bilirubin is elevated 11.2. She is jaundiced. She is also obtunded and only awakens to constant stimuli.. Not making much sense. Ammonia only 18. She is receiving rectal lactulose. Brain CT done yesterday did not show any acute intracranial process. No intraparenchymal hemorrhage or mass effect. Patient's blood pressure is improving with fluid bolus. She is very edematous and third spacing. She is currently on 3 L/min nasal cannula. ABG at this time showed a PaO2 of 73, pCO2 of 35, pH of 7.49. Chest x-ray done yeste rday showed low lung volumes, heart appears enlarged, possible trace left pleural effusion and patchy bibasilar opacities, possibly atelectasis. Has remained afebrile. Not currently on any antibiotic coverage. Blood cultures were negative x 2 on arrival. Infectious diseases following. patient's who is at bedside, has been updated. Review of Systems ROS unobtainable: due to mental status Past Medical History Past Medical History: Cancer Additional Past Medical History / Comment(s): new dx. breast cancer, chemo induced Adrenal insufficiency History of Any Multi-Drug Resistant Organisms: None Reported Past Surgical History: Breast Surgery, Tonsillectomy Additional Past Surgical History / Comment(s): bilateral mastectomy May 13 2023 Past Anesthesia/Blood Transfusion Reactions: No Reported Reaction Past Psychological History: No Psychological Hx Reported Smoking Status: Never smoker Past Alcohol Use History: None Reported Past Drug Use History: None Reported - Past Family History Father Family Medical History: Cancer Additional Family Medical History / Comment(s): brain, paternal grandmother breast cancer Medications and Allergies Home Medications Medication Instructions Recorded Confirmed Type Ergocalciferol [Vitamin D2 (1250 1,250 mcg PO QMONTHLY 10/15/22 12/13/23 History Mcg = [id number] Iu)] Hydrocortisone [Cortef] 10 mg PO DAILY@1800 12/06/23 12/13/23 History Hydrocortisone [Cortef] 20 mg PO DAILY@1300 12/06/23 12/13/23 History cefUROXime axetiL [Ceftin] 500 mg PO BID 7 Days #14 tab 12/11/23 12/13/23 Rx metroNIDAZOLE [Flagyl] 500 mg PO TID 7 Days #21 tab 12/11/23 12/13/23 Rx Allergies Allergy/AdvReac Type Severity Reaction Status Date / Time sulfamethoxazole Allergy Rash/Hives Verified 12/13/23 18:08 [From Bactrim] trimethoprim [From Bactrim] Allergy Rash/Hives Verified 12/13/23 18:08 Physical Exam Vitals: Vital Signs Temp Pulse Pulse Resp BP BP Pulse Ox 12/22/23 02:00 98.1 F 94 8 L 89/57 98 12/21/23 20:00 98.0 F 94 12 124/78 96 12/21/23 14:08 97.7 F 93 18 138/71 12/21/23 14:04 97.7 F 93 18 138/71 12/21/23 12:52 97.7 F 93 18 136/70 12/21/23 12:32 97.4 F L 93 18 106/60 12/21/23 12:14 97.5 F L 88 18 108/64 95 12/21/23 12:11 97.5 F L 108 H 9 L 108/64 95 12/21/23 08:00 14 12/21/23 07:05 98.2 F 70 9 L 139/78 96 Intake and Output 12/21/23 12/21/23 12/22/23 14:59 22:59 06:59 Intake Total 345 Output Total 975 Balance 345 -975 Intake: Blood Product 345 Platelet Pheresis Pas 345 Psoralen Unit [id number] Output: Urine 975 Other: Voiding Method Indwelling Catheter Indwelling Catheter GENERAL EXAM: Obtunded 43-year-old white female, occasionally crying out, unable to follow simple commands, gross anasarca, jaundice. HEAD: Normocephalic and atraumatic EYES: Normal reaction of pupils, equal size. Icteric sclera NOSE: Clear with pink turbinates. THROAT: No erythema or exudates. Dry mucous membranes, dried blood within the oral cavity and posterior oropharynx NECK: No masses, no JVD. CHEST: No chest wall deformity. Previous bilateral mastectomy LUNGS: Equal air entry with diminished basilar lung sounds. No crackles, wheezing, rhonchi. On 3 L/min nasal cannula. No conversational dyspnea or accessory muscle use.. CVS: S1 and S2 normal with soft systolic murmur, regular rhythm. No other extra heart sounds ABDOMEN: Obese abdomen, multiple laparoscopic incisions which are approximated, hypoactive bowel sounds, facial grimacing with palpation of abdomen no matter location. SPINE: No scoliosis or deformity SKIN: Jaundiced CENTRAL NERVOUS SYSTEM: Obtunded, does not appropriately answer questioning, does not follow commands, no obvious facial asymmetry or unilateral extremity w eakness. Exam is limited. EXTREMITIES: Pitting edema in all 4 extremities. No cyanosis or clubbing. Peripheral pulses are weak but palpable throughout. Results - Laboratory Findings CBC and BMP: 12/22/23 04:22 12/22/23 04:22 ABG ABG pH 7.49 (7.35-7.45) H 12/22/23 04:18 ABG pCO2 35 mmHg (35-45) 12/22/23 04:18 ABG pO2 73 mmHg (83-108) L 12/22/23 04:18 ABG O2 Saturation 96.1 % (94-97) 12/22/23 04:18 PT/INR, D-dimer PT 19.7 sec (10.0-12.5) H 12/21/23 06:10 INR 2.0 (<1.2) H 12/21/23 06:10 D-Dimer >34.10 mg/L FEU (<0.60) H 12/20/23 09:05 Abnormal lab findings: Abnormal Labs 12/13/23 12/13/23 12/13/23 17:00 17:00 17:00 WBC 20.8 H RBC Hgb Hct RDW 17.3 H Plt Count 17 L* D Immature Gran # Neutrophils # 16.6 H Neutrophils # (Manual) Lymphocytes # Lymphocytes # (Manual) Monocytes # 1.4 H Eosinophils # Nucleated RBCs NRBC/100 WBC Diff Immature Plt Fraction Schistocytes PT INR APTT Fibrinogen D-Dimer >34.10 H ABG pH ABG pO2 ABG HCO3 ABG Total CO2 Sodium 135 L Potassium Chloride 109 H Carbon Dioxide 20 L Anion Gap BUN 26 H Creatinine Est GFR (CKD-EPI) BUN/Creatinine Ratio Glucose 115 H POC Glucose (mg/dL) Uric Acid Calcium 7.3 L Phosphorus Magnesium Total Bilirubin 5.9 H Conjugated Bilirubin Unconjugated Bilirubin AST 229 H ALT 78 H Alkaline Phosphatase 365 H Total Protein 5.3 L Albumin 2.2 L Albumin/Globulin Ratio Ur Specific [place] Urine Protein Urine Blood Urine RBC Hyaline Casts Urine Mucus Urine Yeast (Budding) 12/13/23 12/13/23 12/14/23 17:00 19:21 00:15 WBC RBC Hgb Hct RDW Plt Count Immature Gran # Neutrophils # Neutrophils # (Manual) Lymphocytes # Lymphocytes # (Manual) Monocytes # Eosinophils # Nucleated RBCs NRBC/100 WBC Diff Immature Plt Fraction Schistocytes PT 20.5 H INR 2.0 H APTT 40.6 H Fibrinogen 76 L* D-Dimer ABG pH ABG pO2 ABG HCO3 ABG Total CO2 Sodium Potassium Chloride Carbon Dioxide Anion Gap BUN Creatinine Est GFR (CKD-EPI) BUN/Creatinine Ratio Glucose POC Glucose (mg/dL) Uric Acid Calcium Phosphorus Magnesium Total Bilirubin Conjugated Bilirubin Unconjugated Bilirubin AST ALT Alkaline Phosphatase Total Protein Albumin Albumin/Globulin Ratio Ur Specific [place] >1.050 H Urine Protein Trace H Urine Blood Moderate H Urine RBC 115 H Hyaline Casts 3 H Urine Mucus Rare H Urine Yeast (Budding) Rare H 12/14/23 12/14/23 12/14/23 00:19 05:46 05:46 WBC 23.1 H 26.71 H RBC Hgb Hct RDW 18.2 H 18.6 H Plt Count 20 L 22 L Immature Gran # 0.30 H Neutrophils # 21.60 H Neutrophils # (Manual) 21.70 H Lymphocytes # Lymphocytes # (Manual) Monocytes # 2.73 H Eosinophils # 0 L Nucleated RBCs 2 H NRBC/100 WBC Diff 0.15 H Immature Plt Fraction 30.1 H Schistocytes PT INR APTT Fibrinogen D-Dimer ABG pH ABG pO2 ABG HCO3 ABG Total CO2 Sodium Potassium Chloride Carbon Dioxide 20.3 L Anion Gap BUN Creatinine Est GFR (CKD-EPI) BUN/Creatinine Ratio 23.00 H Glucose POC Glucose (mg/dL) Uric Acid Calcium 6.9 L Phosphorus Magnesium Total Bilirubin 4.1 H Conjugated Bilirubin Unconjugated Bilirubin AST 167 H ALT 65 H Alkaline Phosphatase 280 H Total Protein 4.4 L Albumin 2.2 L Albumin/Globulin Ratio 1.00 L Ur Specific [place] Urine Protein Urine Blood Urine RBC Hyaline Casts Urine Mucus Urine Yeast (Budding) 12/14/23 12/14/23 12/15/23 09:31 20:27 04:57 WBC RBC Hgb Hct RDW Plt Count Immature Gran # Neutrophils # Neutrophils # (Manual) Lymphocytes # Lymphocytes # (Manual) Monocytes # Eosinophils # Nucleated RBCs NRBC/100 WBC Diff Immature Plt Fraction Schistocytes PT 23.4 H 23.0 H 21.7 H INR 2.4 H 2.3 H 2.2 H APTT 42.1 H 46.9 H 38.4 H Fibrinogen 162 L 183 L 192 L D-Dimer ABG pH ABG pO2 ABG HCO3 ABG Total CO2 Sodium Potassium Chloride Carbon Dioxide Anion Gap BUN Creatinine Est GFR (CKD-EPI) BUN/Creatinine Ratio Glucose POC Glucose (mg/dL) Uric Acid Calcium Phosphorus Magnesium Total Bilirubin Conjugated Bilirubin Unconjugated Bilirubin AST ALT Alkaline Phosphatase Total Protein Albumin Albumin/Globulin Ratio Ur Specific [place] Urine Protein Urine Blood Urine RBC Hyaline Casts Urine Mucus Urine Yeast (Budding) 12/15/23 12/15/23 12/15/23 04:57 05:23 05:23 WBC 22.6 H RBC Hgb Hct RDW 18.6 H Plt Count 21 L Immature Gran # Neutrophils # 20.3 H Neutrophils # (Manual) Lymphocytes # 0.8 L Lymphocytes # (Manual) Monocytes # 1.2 H Eosinophils # Nucleated RBCs NRBC/100 WBC Diff Immature Plt Fraction Schistocytes PT INR APTT Fibrinogen D-Dimer ABG pH ABG pO2 ABG HCO3 ABG Total CO2 Sodium 136 L Potassium Chloride 111 H Carbon Dioxide 19 L Anion Gap BUN 23 H Creatinine Est GFR (CKD-EPI) BUN/Creatinine Ratio Glucose POC Glucose (mg/dL) Uric Acid Calcium 7.1 L Phosphorus Magnesium Total Bilirubin 4.4 H Conjugated Bilirubin 0.8 H Unconjugated Bilirubin 2.5 H AST 213 H ALT 61 H Alkaline Phosphatase 343 H Total Protein 5.2 L Albumin 2.1 L Albumin/Globulin Ratio Ur Specific [place] Urine Protein Urine Blood Urine RBC Hyaline Casts Urine Mucus Urine Yeast (Budding) 12/15/23 12/16/23 12/16/23 17:14 06:44 06:44 WBC 23.8 H RBC Hgb Hct RDW 19.8 H Plt Count 36 L D Immature Gran # Neutrophils # 20.2 H Neutrophils # (Manual) Lymphocytes # Lymphocytes # (Manual) Monocytes # 1.7 H Eosinophils # Nucleated RBCs NRBC/100 WBC Diff Immature Plt Fraction Schistocytes PT 21.1 H 18.1 H INR 2.1 H 1.8 H APTT 39.5 H 42.4 H Fibrinogen 183 L 198 L D-Dimer ABG pH ABG pO2 ABG HCO3 ABG Total CO2 Sodium Potassium Chloride Carbon Dioxide Anion Gap BUN Creatinine Est GFR (CKD-EPI) BUN/Creatinine Ratio Glucose POC Glucose (mg/dL) Uric Acid Calcium Phosphorus Magnesium Total Bilirubin Conjugated Bilirubin Unconjugated Bilirubin AST ALT Alkaline Phosphatase Total Protein Albumin Albumin/Globulin Ratio Ur Specific [place] Urine Protein Urine Blood Urine RBC Hyaline Casts Urine Mucus Urine Yeast (Budding) 12/16/23 12/16/23 12/17/23 06:44 17:16 06:25 WBC RBC Hgb Hct RDW Plt Count Immature Gran # Neutrophils # Neutrophils # (Manual) Lymphocytes # Lymphocytes # (Manual) Monocytes # Eosinophils # Nucleated RBCs NRBC/100 WBC Diff Immature Plt Fraction Schistocytes PT 19.0 H INR 1.9 H APTT 44.7 H Fibrinogen 184 L D-Dimer ABG pH ABG pO2 ABG HCO3 ABG Total CO2 Sodium 136 L Potassium Chloride 112 H Carbon Dioxide 21 L 19.7 L Anion Gap 12.30 H BUN 29 H 36.4 H Creatinine Est GFR (CKD-EPI) 58 L BUN/Creatinine Ratio 30.33 H Glucose 116 H POC Glucose (mg/dL) Uric Acid Calcium 6.9 L 6.9 L Phosphorus Magnesium Total Bilirubin 3.9 H 5.8 H Conjugated Bilirubin Unconjugated Bilirubin AST 196 H 280 H ALT 46 H 55 H Alkaline Phosphatase 346 H 449 H Total Protein 4.8 L 4.6 L Albumin 1.8 L 2.2 L Albumin/Globulin Ratio 0.92 L Ur Specific [place] Urine Protein Urine Blood Urine RBC Hyaline Casts Urine Mucus Urine Yeast (Budding) 12/17/23 12/17/23 12/17/23 06:25 06:25 17:00 WBC 23.48 H RBC Hgb Hct RDW 22.4 H Plt Count 45 L Immature Gran # 0.60 H Neutrophils # 19.35 H Neutrophils # (Manual) Lymphocytes # Lymphocytes # (Manual) Monocytes # 1.93 H Eosinophils # 0.01 L Nucleated RBCs NRBC/100 WBC Diff 0.11 H Immature Plt Fraction 16.7 H Schistocytes 1+ A PT 21.7 H 22.2 H INR 2.2 H 2.2 H APTT 52.7 H 53.8 H Fibrinogen 126 L 170 L D-Dimer ABG pH ABG pO2 ABG HCO3 ABG Total CO2 Sodium Potassium Chloride Carbon Dioxide Anion Gap BUN Creatinine Est GFR (CKD-EPI) BUN/Creatinine Ratio Glucose POC Glucose (mg/dL) Uric Acid Calcium Phosphorus Magnesium Total Bilirubin Conjugated Bilirubin Unconjugated Bilirubin AST ALT Alkaline Phosphatase Total Protein Albumin Albumin/Globulin Ratio Ur Specific [place] Urine Protein Urine Blood Urine RBC Hyaline Casts Urine Mucus Urine Yeast (Budding) 12/18/23 12/18/23 12/18/23 06:10 06:10 06:10 WBC 22.6 H RBC Hgb Hct RDW 22.7 H Plt Count 21 L Immature Gran # Neutrophils # Neutrophils # (Manual) 22.15 H Lymphocytes # Lymphocytes # (Manual) 0.45 L Monocytes # Eosinophils # Nucleated RBCs NRBC/100 WBC Diff Immature Plt Fraction Schistocytes PT 21.5 H INR 2.2 H APTT 49.5 H Fibrinogen D-Dimer ABG pH ABG pO2 ABG HCO3 ABG Total CO2 Sodium 133 L Potassium 5.3 H Chloride 108 H Carbon Dioxide 17 L Anion Gap BUN 56 H Creatinine 1.68 H Est GFR (CKD-EPI) BUN/Creatinine Ratio Glucose 163 H POC Glucose (mg/dL) Uric Acid Calcium 6.3 L* Phosphorus Magnesium Total Bilirubin 7.9 H Conjugated Bilirubin Unconjugated Bilirubin AST 442 H ALT 54 H Alkaline Phosphatase 392 H Total Protein 4.8 L Albumin 1.9 L Albumin/Globulin Ratio Ur Specific [place] Urine Protein Urine Blood Urine RBC Hyaline Casts Urine Mucus Urine Yeast (Budding) 12/18/23 12/19/23 12/19/23 09:35 06:10 06:20 WBC 21.0 H RBC Hgb Hct RDW 21.9 H Plt Count 12 L* Immature Gran # Neutrophils # Neutrophils # (Manual) 20.58 H Lymphocytes # Lymphocytes # (Manual) 0.42 L Monocytes # Eosinophils # Nucleated RBCs NRBC/100 WBC Diff Immature Plt Fraction Schistocytes PT 21.9 H INR 2.2 H APTT 52.0 H Fibrinogen 177 L D-Dimer ABG pH ABG pO2 ABG HCO3 ABG Total CO2 Sodium Potassium Chloride Carbon Dioxide Anion Gap BUN Creatinine Est GFR (CKD-EPI) BUN/Creatinine Ratio Glucose POC Glucose (mg/dL) Uric Acid 9.2 H Calcium Phosphorus 4.9 H Magnesium Total Bilirubin Conjugated Bilirubin Unconjugated Bilirubin AST ALT Alkaline Phosphatase Total Protein Albumin Albumin/Globulin Ratio Ur Specific [place] Urine Protein Urine Blood Urine RBC Hyaline Casts Urine Mucus Urine Yeast (Budding) 12/19/23 12/20/23 12/20/23 06:20 01:14 05:50 WBC RBC Hgb Hct RDW Plt Count Immature Gran # Neutrophils # Neutrophils # (Manual) Lymphocytes # Lymphocytes # (Manual) Monocytes # Eosinophils # Nucleated RBCs NRBC/100 WBC Diff Immature Plt Fraction Schistocytes PT INR APTT Fibrinogen D-Dimer ABG pH ABG pO2 ABG HCO3 ABG Total CO2 Sodium 134 L Potassium Chloride Carbon Dioxide 19.5 L Anion Gap 14.50 H 15.60 H BUN 70.9 H 79.7 H Creatinine 2.0 H 1.9 H Est GFR (CKD-EPI) 31 L 33 L BUN/Creatinine Ratio 35.45 H 41.95 H Glucose 179 H 184 H POC Glucose (mg/dL) 152 H Uric Acid Calcium 6.7 L 6.7 L Phosphorus 5.2 H Magnesium Total Bilirubin 6.3 H 7.2 H Conjugated Bilirubin Unconjugated Bilirubin AST 290 H 244 H ALT 56 H 50 H Alkaline Phosphatase 332 H 298 H Total Protein 4.2 L 4.1 L Albumin 2.0 L 2.1 L Albumin/Globulin Ratio 0.91 L 1.05 L Ur Specific [place] Urine Protein Urine Blood Urine RBC Hyaline Casts Urine Mucus Urine Yeast (Budding) 12/20/23 12/20/23 12/20/23 05:50 09:05 20:30 WBC 17.25 H RBC 3.97 L Hgb 11.8 L Hct 35.1 L RDW 22.2 H Plt Count 8 A* Immature Gran # 0.20 H Neutrophils # 16.23 H Neutrophils # (Manual) Lymphocytes # 0.58 L Lymphocytes # (Manual) Monocytes # Eosinophils # 0 L Nucleated RBCs NRBC/100 WBC Diff Immature Plt Fraction 32.0 H Schistocytes PT 20.1 H 19.1 H INR 2.0 H 1.9 H APTT 45.6 H 44.4 H Fibrinogen 197 L D-Dimer >34.10 H ABG pH ABG pO2 ABG HCO3 ABG Total CO2 Sodium Potassium Chloride Carbon Dioxide Anion Gap BUN Creatinine Est GFR (CKD-EPI) BUN/Creatinine Ratio Glucose POC Glucose (mg/dL) Uric Acid Calcium Phosphorus Magnesium Total Bilirubin Conjugated Bilirubin Unconjugated Bilirubin AST ALT Alkaline Phosphatase Total Protein Albumin Albumin/Globulin Ratio Ur Specific [place] Urine Protein Urine Blood Urine RBC Hyaline Casts Urine Mucus Urine Yeast (Budding) 12/21/23 12/21/23 12/21/23 06:10 06:10 06:10 WBC RBC 3.75 L Hgb 11.0 L Hct RDW 22.1 H Plt Count 10 L* Immature Gran # Neutrophils # Neutrophils # (Manual) Lymphocytes # 0.5 L Lymphocytes # (Manual) Monocytes # Eosinophils # Nucleated RBCs NRBC/100 WBC Diff Immature Plt Fraction Schistocytes PT 19.7 H INR 2.0 H APTT 49.1 H Fibrinogen D-Dimer ABG pH ABG pO2 ABG HCO3 ABG Total CO2 Sodium 133 L Potassium Chloride 97 L Carbon Dioxide Anion Gap BUN 83 H Creatinine 1.53 H Est GFR (CKD-EPI) BUN/Creatinine Ratio Glucose 135 H POC Glucose (mg/dL) Uric Acid Calcium 6.6 L Phosphorus 4.9 H Magnesium 2.5 H Total Bilirubin 11.2 H Conjugated Bilirubin Unconjugated Bilirubin AST 312 H ALT 48 H Alkaline Phosphatase 259 H Total Protein 4.4 L Albumin 1.7 L Albumin/Globulin Ratio Ur Specific [place] Urine Protein Urine Blood Urine RBC Hyaline Casts Urine Mucus Urine Yeast (Budding) 12/22/23 12/22/23 12/22/23 03:54 04:18 04:18 WBC RBC Hgb Hct RDW Plt Count Immature Gran # Neutrophils # Neutrophils # (Manual) Lymphocytes # Lymphocytes # (Manual) Monocytes # Eosinophils # Nucleated RBCs NRBC/100 WBC Diff Immature Plt Fraction Schistocytes PT INR APTT Fibrinogen D-Dimer ABG pH 7.49 H ABG pO2 73 L ABG HCO3 26 H ABG Total CO2 27 H Sodium Potassium Chloride Carbon Dioxide Anion Gap BUN Creatinine Est GFR (CKD-EPI) BUN/Creatinine Ratio Glucose POC Glucose (mg/dL) 112 H 118 H Uric Acid Calcium Phosphorus Magnesium Total Bilirubin Conjugated Bilirubin Unconjugated Bilirubin AST ALT Alkaline Phosphatase Total Protein Albumin Albumin/Globulin Ratio Ur Specific [place] Urine Protein Urine Blood Urine RBC Hyaline Casts Urine Mucus Urine Yeast (Budding) - Diagnostic Findings Chest x-ray: image reviewed CT scan - chest: image reviewed Assessment and Plan Assessment: Hypotension, currently responding to fluid bolus, patient is transferred to the intensive care unit for closer monitoring. May require vasopressors at some point. Acute hypoxemic respiratory failure, currently on 3 L/min nasal cannula, possibly secondary to mild fluid overload state Stage IV metastatic breast cancer, with liver and likely osseous metastasis, patient received 1 dose Taxol 12/15/2023. Liver mass, biopsied laparoscopically on 12/09/2023, pathology positive for metastatic non-small cell carcinoma consistent with high-grade ductal breast primary. Nuc med bone scan demonstrated multiple rib lesions as well as focal uptake involving the left ilium adjacent to the SI joint and the left femoral supracondylar region medially. Altered mental status, suspect metabolic encephalopathy, possibly secondary to liver insufficiency. Brain CT does not show any acute intracranial process. No intraparenchymal hemorrhage or mass effect. Disseminated intravascular coagulopathy, with known history of malignancy, trending coagulation profile, patient has received 2 of cryo, 2 packs platelets, and 5 mg of vitamin K Severe thrombocytopenia Acute anemia, monitor for acute blood loss Recent history of acute cholecystitis, status post laparoscopic cholecystectomy on 12/09/2023. Follow-up abdominal in pelvis CT done on arrival showed post cholecystectomy changes with high density fluid in the pelvis around the uterus posteriorly representing blood products. No evidence of pneumoperitoneum or organizing peripheral enhancing fluid collection suggestive of abscess. Liver mass, biopsied laparoscopically on 12/09/2023, pathology positive for metastatic non-small cell carcinoma consistent with high-grade ductal breast p rimary. History of bilateral mastectomy Leukocytosis, improving Gross anasarca Lactic acidemia, possibly exacerbated by liver insufficiency Acute kidney injury, possibly secondary to hepatorenal syndrome and/or possibly tumor lysis syndrome, creatinine is 1.78 Multiple electrolyte abnormalities, including mild hyperkalemia, hyperphosphatemia, hypocalcemia Adrenal insufficiency, already restarted on Solu-Cortef Liver insufficiency/jaundice/hyperbilirubinemia Plan: I did respond to the A-team earlier this morning. Patient was noted to be obtunded and minimally responsive. Blood pressure was hypotensive and noted 70s over 40s. Patient was given a 1 L normal saline bolus and transferred to the intensive care unit. May utilize norepinephrine for refractory hypotension.. Monitor for signs of bleeding. Coagulation profile is being repeated. Oncology/hematology following. Infectious diseases following. Not currently on any antibiotics. Blood cultures from admission negative. Repeat labs pending. Continue Solu-Cortef Discontinue benzodiazepines. Continue as needed analgesics. Protonix for GI prophylaxis. Overall prognosis is guarded related to above-mentioned comorbidities. Patient has been transferred to the intensive care unit. is currently at bedside, he has been updated on his 's condition, which is critical. All of his questions have been answered to the best my ability. Further recommendations are forthcoming. I have personally seen and examined the patient, performed the documentation and the assessment and plan as written. Number of minutes spent on the visit:20 Time with Patient: Greater than 30
--- NOTE | 2023-12-22 07:58 | XR ---
EXAMINATION TYPE: XR chest 1V portable DATE OF EXAM: 12/22/2023 Comparison: 12/21/2023 Clinical History: 43-year-old female increased oxygen demands Findings: Left PICC tip in the right atrium. Heart mildly enlarged. Diffuse interstitial and patchy density per sists with slight improvement in aeration at the right base. There may be a small left pleural effusi on that persists as well. Impression: Ongoing interstitial and bilateral patchy opacities, greatest at the left base. There may be slight i mprovement in aeration at the right base.
[2023-12-22] MEDS ORDERED: PIPERACILLIN-TAZOBACTAM 3.375 GM in SODIUM CHLORIDE 0.9% 100 ML IVPB SCH (09:00)
[2023-12-22 09:26] LABS: Howell-Jolly Bodies Present; Lymphocytes # (M) 0.37 k/uL (1.0-4.8); Monocytes # (M) 0.02 k/uL (0-1.0); Neutrophils # (M) 0.61 k/uL (1.3-7.7); Neutrophils % (M) 61 %; Nucleated Red Blood Cells 0 /100 WBC (0-0); Total Cells Counted 100
[2023-12-22 09:27] LABS: Target Cells Present
[2023-12-22 09:28] LABS: RBC Fragments Present
--- NOTE | 2023-12-22 09:56 | P.PN ---
Subjective Progress Note Date: 12/22/23 CHIEF COMPLAINT: Abdominal pain HISTORY OF PRESENT ILLNESS: Patient transferred to the ICU due to hypotension. She is currently on Levophed. Patient remains obtunded. Afebrile. Mildly tachycardic. WBC 1.0 Hgb 9.6 platelets 6 INR 2.0 fibrinogen 191 sodium is 135 potassium 5.5 creatinine 1.78 total bilirubin is up to 12.3 LFTs elevated albumin 1.5 PHYSICAL EXAM: VITAL SIGNS: Reviewed. GENERAL: Obtunded HEENT: Sclera icterus present ABDOMEN: Soft. Nondistended. diffuse tenderness Skin: Jaundiced ASSESSMENT: 1. Metastatic breast cancer with liver metastasis and Liver failure 2. Intractable nausea 3. DIC followed by oncology service 4. Fluid collection in the pelvis on CT likely old blood 5. Recent laparoscopic cholecystectomy on December 09, 2023 with liver lesion biopsy. 6. History of breast cancer status post bilateral mastectomy, chemo and radiation PLAN: -Continue ICU management -Continue supportive care -Patient followed by oncology service closely -No surgical intervention planned Physician [employer] note has been reviewed by physician. Signing provider agrees with the documented findings, assessment, and plan of care. Objective - Vital Signs Vital signs: Vital Signs Temp 98.1 F 12/22/23 02:00 Pulse 95 12/22/23 07:00 Resp 15 12/22/23 07:00 BP 93/43 12/22/23 07:00 Pulse Ox 96 12/22/23 07:00 FiO2 Intake & Output 12/21/23 12/22/23 12/22/23 18:59 06:59 18:59 Intake Total 345 116.842 73.905 Output Total 975 155 30 Balance -630 -38.158 43.905 Weight 145 kg Intake: IV 100 50 Sodium Chloride 0.9% 1, 100 50 000 ml @ 50 mls/hr IV . Q20H [facility] Rx#:[id number] Intake, IV Titration 16.842 23.905 Amount Norepinephrine 4 mg In 16.842 23.905 Sodium Chloride 0.9% 250 ml @ 0.03 MCG/KG/MIN 16. 299 mls/hr IV .[id number] [facility] Rx#:[id number] Blood Product 345 Platelet Pheresis Pas 345 Psoralen Unit [id number] Output: Urine 975 155 30 Other: Voiding Method Indwelling Catheter Indwelling Catheter - Labs CBC & Chem 7: 12/22/23 04:22 12/22/23 04:22 Labs: Abnormal Lab Results - Last 24 Hours (Table) 12/22/23 12/22/23 12/22/23 Range/Units 03:54 04:18 04:18 WBC (3.8-10.6) k/uL RBC (3.80-5.40) m/uL Hgb (11.4-16.0) gm/dL Hct (34.0-46.0) % RDW (11.5-15.5) % Plt Count (150-450) k/uL Neutrophils # (Manual) (1.3-7.7) k/uL Lymphocytes # (Manual) (1.0-4.8) k/uL PT (10.0-12.5) sec INR (<1.2) APTT (22.0-30.0) sec Fibrinogen (200-500) mg/dL ABG pH 7.49 H (7.35-7.45) ABG pO2 73 L (83-108) mmHg ABG HCO3 26 H (21-25) mmol/L ABG Total CO2 27 H (19-24) mmol/L Sodium (137-145) mmol/L Potassium (3.5-5.1) mmol/L BUN (7-17) mg/dL Creatinine (0.52-1.04) mg/dL Glucose (74-99) mg/dL POC Glucose (mg/dL) 112 H 118 H (70-110) mg/dL Plasma Lactic Acid Varun (0.7-2.0) mmol/L Calcium (8.4-10.2) mg/dL Phosphorus (2.5-4.5) mg/dL Magnesium (1.6-2.3) mg/dL Total Bilirubin (0.2-1.3) mg/dL AST (14-36) U/L ALT (4-34) U/L Alkaline Phosphatase (38-126) U/L Total Protein (6.3-8.2) g/dL Albumin (3.5-5.0) g/dL 12/22/23 12/22/23 12/22/23 Range/Units 04:22 04:22 04:22 WBC 1.0 L* (3.8-10.6) k/uL RBC 3.21 L (3.80-5.40) m/uL Hgb 9.6 L (11.4-16.0) gm/dL Hct 30.3 L (34.0-46.0) % RDW 22.1 H (11.5-15.5) % Plt Count 6 L* (150-450) k/uL Neutrophils # (Manual) 0.61 L (1.3-7.7) k/uL Lymphocytes # (Manual) 0.37 L (1.0-4.8) k/uL PT 20.5 H (10.0-12.5) sec INR 2.0 H (<1.2) APTT 49.7 H (22.0-30.0) sec Fibrinogen 191 L (200-500) mg/dL ABG pH (7.35-7.45) ABG pO2 (83-108) mmHg ABG HCO3 (21-25) mmol/L ABG Total CO2 (19-24) mmol/L Sodium 136 L (137-145) mmol/L Potassium 5.5 H (3.5-5.1) mmol/L BUN 87 H (7-17) mg/dL Creatinine 1.78 H (0.52-1.04) mg/dL Glucose 113 H (74-99) mg/dL POC Glucose (mg/dL) (70-110) mg/dL Plasma Lactic Acid Varun (0.7-2.0) mmol/L Calcium 6.5 L (8.4-10.2) mg/dL Phosphorus 5.8 H (2.5-4.5) mg/dL Magnesium 2.6 H (1.6-2.3) mg/dL Total Bilirubin 12.3 H (0.2-1.3) mg/dL AST 408 H (14-36) U/L ALT 71 H (4-34) U/L Alkaline Phosphatase 235 H (38-126) U/L Total Protein 3.9 L (6.3-8.2) g/dL Albumin 1.5 L (3.5-5.0) g/dL 12/22/23 Range/Units 04:22 WBC (3.8-10.6) k/uL RBC (3.80-5.40) m/uL Hgb (11.4-16.0) gm/dL Hct (34.0-46.0) % RDW (11.5-15.5) % Plt Count (150-450) k/uL Neutrophils # (Manual) (1.3-7.7) k/uL Lymphocytes # (Manual) (1.0-4.8) k/uL PT (10.0-12.5) sec INR (<1.2) APTT (22.0-30.0) sec Fibrinogen (200-500) mg/dL ABG pH (7.35-7.45) ABG pO2 (83-108) mmHg ABG HCO3 (21-25) mmol/L ABG Total CO2 (19-24) mmol/L Sodium (137-145) mmol/L Potassium (3.5-5.1) mmol/L BUN (7-17) mg/dL Creatinine (0.52-1.04) mg/dL Glucose (74-99) mg/dL POC Glucose (mg/dL) (70-110) mg/dL Plasma Lactic Acid Varun 7.8 H* (0.7-2.0) mmol/L Calcium (8.4-10.2) mg/dL Phosphorus (2.5-4.5) mg/dL Magnesium (1.6-2.3) mg/dL Total Bilirubin (0.2-1.3) mg/dL AST (14-36) U/L ALT (4-34) U/L Alkaline Phosphatase (38-126) U/L Total Protein (6.3-8.2) g/dL Albumin (3.5-5.0) g/dL
[2023-12-22] MEDS: HYDROCORTISONE SUCCINATE 100 MG/2 ML VIAL IV SCH (10:00)
[2023-12-22] MEDS: PHYTONADIONE 5 MG in SODIUM CHLORIDE 0.9% 50 ML IVPB STA (10:38)
[2023-12-22] MEDS: PIPERACILLIN-TAZOBACTAM 3.375 GM in SODIUM CHLORIDE 0.9% 100 ML IVPB SCH (10:51)
[2023-12-22] MEDS: ALBUMIN HUMAN 25% 50 ML in EMPTY BAG 1 BAG IVPB SCH ×2 (11:12→17:08)
--- NOTE | 2023-12-22 11:29 | P.PN ---
Subjective Patient is seen in follow-up for acute kidney injury. Renal function little worse. Has Perry catheter. Nonoliguric. Quite lethargic. Transferred to ICU due to hypotension. On Levophed. Vital signs are stable. On vasopressor support. General: No acute distress. HEENT: Head exam is unremarkable. LUNGS: No audible rhonchi or wheezes. HEART: Rate and Rhythm are regular. ABDOMEN: Nontender. EXTREMITITES: 2+ edema. Objective - Vital Signs Vital signs: Vital Signs Temp 98.7 F 12/22/23 10:54 Pulse 93 12/22/23 11:15 Resp 27 H 12/22/23 11:15 BP 92/41 12/22/23 11:15 Pulse Ox 96 12/22/23 11:15 FiO2 Intake & Output 12/21/23 12/22/23 12/22/23 18:59 06:59 18:59 Intake Total 345 116.842 517.625 Output Total 975 155 100 Balance -630 -38.158 417.625 Weight 145 kg Intake: IV 100 400 Phytonadione 5 mg In 50 Sodium Chloride 0.9% 50 ml @ 100 mls/hr IVPB ONCE [facility] Rx#:[id number] Piperacillin-Tazobactam 3 100 .375 gm In Sodium Chloride 0.9% 100 ml @ 25 mls/hr IVPB Q8HR [facility] Rx# :[id number] Sodium Chloride 0.9% 1, 100 250 000 ml @ 50 mls/hr IV . Q20H [facility] Rx#:[id number] Intake, IV Titration 16.842 117.625 Amount Norepinephrine 4 mg In 16.842 117.625 Sodium Chloride 0.9% 250 ml @ 0.03 MCG/KG/MIN 16. 299 mls/hr IV .[id number] [facility] Rx#:[id number] Blood Product 345 Platelet Pheresis Pas 345 Psoralen Unit [id number] Output: Urine 975 155 100 Other: Voiding Method Indwelling Catheter Indwelling Catheter - Labs CBC & Chem 7: 12/22/23 04:22 12/22/23 04:22 Labs: Abnormal Lab Results - Last 24 Hours (Table) 12/22/23 12/22/23 12/22/23 Range/Units 03:54 04:18 04:18 WBC (3.8-10.6) k/uL RBC (3.80-5.40) m/uL Hgb (11.4-16.0) gm/dL Hct (34.0-46.0) % RDW (11.5-15.5) % Plt Count (150-450) k/uL Neutrophils # (Manual) (1.3-7.7) k/uL Lymphocytes # (Manual) (1.0-4.8) k/uL PT (10.0-12.5) sec INR (<1.2) APTT (22.0-30.0) sec Fibrinogen (200-500) mg/dL ABG pH 7.49 H (7.35-7.45) ABG pO2 73 L (83-108) mmHg ABG HCO3 26 H (21-25) mmol/L ABG Total CO2 27 H (19-24) mmol/L Sodium (137-145) mmol/L Potassium (3.5-5.1) mmol/L BUN (7-17) mg/dL Creatinine (0.52-1.04) mg/dL Glucose (74-99) mg/dL POC Glucose (mg/dL) 112 H 118 H (70-110) mg/dL Plasma Lactic Acid Varun (0.7-2.0) mmol/L Calcium (8.4-10.2) mg/dL Phosphorus (2.5-4.5) mg/dL Magnesium (1.6-2.3) mg/dL Total Bilirubin (0.2-1.3) mg/dL AST (14-36) U/L ALT (4-34) U/L Alkaline Phosphatase (38-126) U/L Total Protein (6.3-8.2) g/dL Albumin (3.5-5.0) g/dL 12/22/23 12/22/23 12/22/23 Range/Units 04:22 04:22 04:22 WBC 1.0 L* (3.8-10.6) k/uL RBC 3.21 L (3.80-5.40) m/uL Hgb 9.6 L (11.4-16.0) gm/dL Hct 30.3 L (34.0-46.0) % RDW 22.1 H (11.5-15.5) % Plt Count 6 L* (150-450) k/uL Neutrophils # (Manual) 0.61 L (1.3-7.7) k/uL Lymphocytes # (Manual) 0.37 L (1.0-4.8) k/uL PT 20.5 H (10.0-12.5) sec INR 2.0 H (<1.2) APTT 49.7 H (22.0-30.0) sec Fibrinogen 191 L (200-500) mg/dL ABG pH (7.35-7.45) ABG pO2 (83-108) mmHg ABG HCO3 (21-25) mmol/L ABG Total CO2 (19-24) mmol/L Sodium 136 L (137-145) mmol/L Potassium 5.5 H (3.5-5.1) mmol/L BUN 87 H (7-17) mg/dL Creatinine 1.78 H (0.52-1.04) mg/dL Glucose 113 H (74-99) mg/dL POC Glucose (mg/dL) (70-110) mg/dL Plasma Lactic Acid Varun (0.7-2.0) mmol/L Calcium 6.5 L (8.4-10.2) mg/dL Phosphorus 5.8 H (2.5-4.5) mg/dL Magnesium 2.6 H (1.6-2.3) mg/dL Total Bilirubin 12.3 H (0.2-1.3) mg/dL AST 408 H (14-36) U/L ALT 71 H (4-34) U/L Alkaline Phosphatase 235 H (38-126) U/L Total Protein 3.9 L (6.3-8.2) g/dL Albumin 1.5 L (3.5-5.0) g/dL 12/22/23 12/22/23 Range/Units 04:22 10:25 WBC (3.8-10.6) k/uL RBC (3.80-5.40) m/uL Hgb (11.4-16.0) gm/dL Hct (34.0-46.0) % RDW (11.5-15.5) % Plt Count (150-450) k/uL Neutrophils # (Manual) (1.3-7.7) k/uL Lymphocytes # (Manual) (1.0-4.8) k/uL PT (10.0-12.5) sec INR (<1.2) APTT (22.0-30.0) sec Fibrinogen (200-500) mg/dL ABG pH (7.35-7.45) ABG pO2 (83-108) mmHg ABG HCO3 (21-25) mmol/L ABG Total CO2 (19-24) mmol/L Sodium (137-145) mmol/L Potassium (3.5-5.1) mmol/L BUN (7-17) mg/dL Creatinine (0.52-1.04) mg/dL Glucose (74-99) mg/dL POC Glucose (mg/dL) (70-110) mg/dL Plasma Lactic Acid Varun 7.8 H* 7.8 H* (0.7-2.0) mmol/L Calcium (8.4-10.2) mg/dL Phosphorus (2.5-4.5) mg/dL Magnesium (1.6-2.3) mg/dL Total Bilirubin (0.2-1.3) mg/dL AST (14-36) U/L ALT (4-34) U/L Alkaline Phosphatase (38-126) U/L Total Protein (6.3-8.2) g/dL Albumin (3.5-5.0) g/dL Assessment and Plan Plan: Assessment: 1. Acute kidney injury secondary to tumor lysis syndrome and hemodynamic ATN. Elevated uric acid level, phosphorus level, mild hyperkalemia as well as hypocalcemia all suggestive of tumor lysis syndrome. Patient started chemotherapy December 16, 2023. Status post rasburicase December 18, 2023. Received IV contrast December 13, 2023 for CTA. Baseline creatinine 0.8-0.9 and peaked at 2.0 this admission -1.78 today. No hydronephrosis noted on kidney ultrasound. 2. Metastatic breast cancer being followed by oncology. Patient has history of bilateral mastectomies and completed chemo in March 2023. 3. Metabolic acidosis secondary to acute kidney injury and IV fluids. Improved with bicarb drip. 4. DIC being followed by oncology. 5. Recent laparoscopic cholecystectomy December 09, 2023. 6. History of adrenal sufficiency maintained on Solu-Cortef. 7. Edema. Plan: Maintain gentle IV hydration. 25 g IV albumin x 2 doses today. Lasix 40 mg IV once after first dose of albumin infused. Strict I's and O's. Continue to monitor renal function and urine output. Avoid nephrotoxins. Add midodrine if able to take oral medications. Hold for systolic blood pressure greater than 110. Wean Levophed. Continue to assess daily for need for renal replacement therapy. No urgency at this time. Case discussed with oncology.
[2023-12-22] MEDS: MIDODRINE 5 MG TAB PO SCH (12:07)
[2023-12-22 12:24] LABS: Glucose,Whole Blood 90 mg/dL (70-110)
[2023-12-22] MEDS: HYDROmorphone 1 MG/ML 1 ML SYRINGE IVP PRN (12:44)
[2023-12-22] MEDS: FUROSEMIDE 10 MG/ML 4 ML VIAL IV ONE (13:28)
--- NOTE | 2023-12-22 15:30 | P.PN ---
Subjective Progress Note Date: 12/22/23 This is a pleasant 43-year-old female who presented to the emergency department with increased abdominal pain, postop nausea and vomiting with decreased oral intake and dehydration. Patient recently was hospitalized underwent liver biopsy along with acute cholecystectomy with general surgery Dr. Vuong last week. Patient reports she continued to have abdominal pain and difficulty tolerating oral intake and recently started developing nausea and vomiting again. Patient reports severe abdominal pain with no improvement. Patient reports having minimal bowel movements although is passing gas and is urinating with no difficulties. Labs reviewed on admission and had a D-dimer done which was significantly elevated underwent CTA with no suggestion of PE. Other labs reveal an elevated white count of 20.8, hemoglobin stable at 14.4, platelets significantly low at 17, INR 2.0, D-dimer above 34, sodium 135, potassium 3.7, creatinine 1.01, lactic acid was 2.0, total bili is 5.9 with an AST of 229 and ALT is 78 and alk phos is 365, lipase was 34. Urinalysis was negative and influenza/COVID/RSV are all negative as well. Patient was admitted for dehydration with general surgery as well as oncology on consult. Patient did undergo a liver biopsy last admission during the cholecystectomy which remains pending. Patient having an increasing white count this morning of 26 with no fevers noted and empiric antibiotics started and will consult infectious disease and appreciate input and recommendations. EKG shows sinus rhythm, abdominal pelvis CT shows postcholecystectomy changes with high density fluid in the pelvis around the uterus posteriorly representing possible blood products with n o evidence of pneumoperitoneum or organizing peripheral enhancing fluid collection to suggest abscess, persistent liver lesions as noted on MRI from 422 concerning of metastatic disease until proven otherwise and a trace bilateral pleural effusions. Patient is on room air and denies significant shortness of breath although does feel exerted with minimal exertion. Will add incentive spirometer. 12/15/2023 Patient is seen in follow-up this morning lethargic although arousable. Patient is scheduled to undergo a PICC line as oncology is following and discussing initiating Taxol chemotherapy while inpatient. Repeat ultrasound showing post cholecystectomy changes. Per oncology, liver biopsy that was performed last week is positive for metastatic breast cancer. Patient continues to report some nausea and vomiting with decreased oral intake and continued abdominal pain. Patient is having some generalized edema noted and was given a dose of Lasix. Patient's labs consistent with DIC and is status post cryoprecipitate. Oncology following closely. White count is trending down and patient is maintained on antibiotics. Infectious diseases following. Overall prognosis remains guarded. 12/16/2023 Patient seen and evaluated in follow-up status post PICC line placement with oncology following closely with plans of initiating chemotherapy while inpatient today. Multiple medical consultations following. Patient was initiated on antibiotics and white count is trending down. Infectious disease following and will be monitored closely off antibiotic therapy. Patient will receive Taxol and will be monitored closely. Patient also to receive platelets today. Continue with current regimen with oncology following closely. Encouraged to increase activity as tolerated. Patient reports generalized weakness although is getting up and walking to the bathroom. Patient does feel somewhat short of breath with exertion. Patient continues with generalized edema noted of the lower extremities as well as upper and abdomen. Will continue to encourage elevating lower extremities while at rest and may use Mark wraps or compression stockings to assist with swelling. Diet has been advanced per surgery and boost supplements also being added as patient reports continued abdominal pain with not much of an appetite. 12/17/2023 Patient is seen in follow-up today status post chemotherapy of Taxol. Patient reports to feeling significantly tired and weak with continued abdominal pain and nausea. Patient has been using Zofran and general surgery following as patient is recent status post lap cholecystectomy. No plans for surgical intervention at this time. Patient is receiving platelets today and other labs reviewed with oncology following closely undergoing further DIC treatment and workup. Infectious disease following as well and patient is being closely monitored off antibiotic therapy. White count remains elevated. Patient is afebrile. Patient is maintained on full liquids although reports not eating much and not tolerating. Patient has significant pain when attempting to eat or drink and associated with severe nausea. Encouraged patient to increase activity as tolerated and attempt to sit up in the chair. Ensure supplements being added. Patient appears jaundice and edematous. 0 12/18/2023 Patient is evaluated today on the medical floor. Patient is status post chemotherapy of Taxol. She continues to feel significantly weak and is requiring assistance to get up to the restroom. Patient states that she could possibly sit up in the chair however states that she is too weak to walk from the chair to the restroom. Patient continues to report significant nausea and abdominal discomfort. Patient did receive a dose of cryoprecipitate for fibrinogen level and today's blood work is showing to 15 with improvement in her PTT/PTT her INR remained stable at 2.2. Patient's calcium level was low today at 6.3, uric acid and phosphorus levels are elevated. Her creatinine has increased up to 1.68 with a sodium level of 133. Patient states that she does feel dehydrated being as she has had poor oral intake and is really unable to tolerate much fluids at this time. Her white blood cell count remains elevated at 22.6. Chest x-ray reveals no acute process. 12/19/2023 Patient evaluated in follow up today. Continues to report abdominal discomfort right upper quadrant and also lower back pain. Patient has become increasingly weak and having difficulty with ambulation requiring multiple staff members to help her up to the restroom. Patient has been increasingly restless throughout the day and states she is unable to get comfortable in the bed. She is also anxious. Wanting the IV fluids turned down as she reports feeling puffy and fluid overloaded. Concern for tumor lysis syndrome and received a dose of rasburicase yesterday. Nephrology was consulted. Her creatinine continues to worsen today BUN is 70.9 and creatinine 2.0. Patient was found to have significant urinary retention with over 2L in the urinary bladder and an indwelling catheter has been placed. LFTs remain elevated. Sodium improved to 135, potassium 5.3 today. 12/20/2023 Patient is evaluated today in follow up on the medical floor. Was having increasing lower back pain, and discomfort yesterday and into the evening which was not controlled by norco. Patient states the dilaudid made her loopy and morphine was then given. Patient was sedated upon evaluation this AM and was given a dose of narcan and respirations did improve. Patient reports not being able to get comfortable and has increasing peripheral edema. Fluids will be cut back and patient will be given a dose of IV lasix today. Platelet count found to be 8 and also fibrinogen is 197. Patient is scheduled to receive a unit of platelets today. Patient has received 2 units of platelets and 2 units of cryoprecipitate so far this admission. White blood cell count slightly improved to 17.25. BUN 79.7, creatinine 1.9. Total bilirubin 7.2. 12/21/2023 Patient remains significantly encephalopathic on todays examination. She has worsening jaundice. Continues to have blood in the oral cavity. did receive a do se of platelets yesterday and repeat today is 10, patient is scheduled to receive 1 unit of platelets. Chest xray today reveals hypoventilatory changes with patchy airspace disease in the lower lungs similar to slightly worsened. Patient did receive a dose of IV lasix yesterday. Brain CT reveals no acute changes. Her white blood cell count has normalized to 6.2 and remains off antibiotic therapy. ID is following along. Sodium is 133, BUN 83, creatinine 1.53, calcium 6.6, phosphorous 4.9, magnesium 2.5, total bilirubin 11.2. AST/ALT/alk phos remain elevated. Patient remains on IV solu-cortef. Patient is received fluids with bicarb gtt at 50 and normal saline at 50. Nephrology following. Indwelling catheter remains in place. Patient remains afebrile. 12/22/2023 Patient is eval today in the intensive care unit patient was transferred overnight secondary to hypotension and is now requiring vasopressor support has been started on levophed. Sepsis workup has been completed with a urine culture and blood culture ordered as well as a lactic acid. Patient continues on normal saline at 50 cc/h and has been started empirically on IV Zosyn at this time. Infectious disease is following closely. Ongoing interstitial and bilateral patchy opacities greater than left basilar may be a slight improvement in aeration of the right base. There is a possible small pleural effusion which persists as well. The acid comes back at 7.8. Her bilirubin remains elevated at 12.3. BUN of 87, creatinine of 1.78, potassium of 5.5, sodium of 136. Her INR is 2.0. Fibrinogen level is 191. There is evidence of bright red blood in between the legs, and patient also continues to be bleeding from her oral cavity. Patient will receive another dose of vitamin K today. Review of systems: Unable to complete patient is obtunded and lethargic in the ICU. All medications have been reviewed PHYSICAL EXAMINATION: GENERAL: The patient is lethargic but arousable, alert and oriented x1 encephalopathic. Appears exhausted. Well developed, well nourished. Ill- appearing. Morbidly obese HEENT: Pupils are round and equally reacting to light. EOMI. No scleral icterus. No conjunctival pallor. Normocephalic, atraumatic. No pharyngeal erythema. No thyromegaly. CARDIOVASCULAR: S1 and S2 muffled PULMONARY: Chest is clear to auscultation, no wheezing or crackles. ABDOMEN: Soft, tender, nondistended, normoactive bowel sounds. No palpable organomegaly. mild RUQ tenderness. Scruggs catheter in place. There is some red blood noted in between legs. Unable to determine vaginal. MUSCULOSKELETAL: No joint swelling or deformity. EXTREMITIES: No cyanosis, clubbing, or pedal edema. Bilateral upper and lower extremities edematous NEUROLOGICAL: Gross neurological examination did not reveal any focal deficits. Diffusely weak SKIN: No rashes. Jaundice Assessment: Altered mental status with concern for acute metabolic and hepatic encephalopathy. Brain CT showing no acute process. Hypotension with concerns for sepsis patient also has significant lactic acidosis. Sepsis work up in progress and patient has been started on IV zosyn empirically. ID following. Acute hypoxemic respiratory failure requiring nasal cannula. Patient is volume overloaded. Receiving IV lasix dosed daily as needed by nephrology Nausea, vomiting, decreased oral intake with dehydration and continued abdominal pain, multifactorial, most likely secondary to metastatic disease Acute kidney injury with concern for tumor lysis syndrome /possible hepatorenal Hyperkalemia secondary to the acute kidney injury Hypovolemic hyponatremia due to dehydration DIC with coagulopathy, secondary to liver lesions oncology following. Thrombocytopenia tranfuse for counts less than 10 Patient receiving platelets and cryoprecipitate. Elevated uric acid patient received a dose of rasburicase as recommended by oncology Urinary retention require indwelling scruggs catheter Status post laparoscopic cholecystectomy 12/08 Significant leukocytosis, multifactorial, likely reactive, trending down and was monitored off antibiotics. Patient is now leukopenic. 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 Patient received a PICC line and was given Taxol chemotherapy. Oncology following ordering additional platelets and will receive platelets again today. Patient is noted to have blood in the oral cavity with increased INR was given a dose of vitamin K today by oncology. Patient will receive another dose of vitamin K today. White count has normalized and now patient is neutropenic. Sepsis work up in progress and on IV zosyn empirically. Undergoing DIC monitoring, labs are consistent with DIC and is status post cryoprecipitate. Repeat labs ordered every 12 hours Patient having some generalized edema noted throughout upper and lower extremities and abdomen. Recommend Mark wraps or compression stockings to bilateral lower extremities and elevating and while at rest. Patient is extremely edematous although is most likely dehydration, concern for third spac ing. Patient appears jaundiced with elevated bilirubin and liver functions. Nephrology is ordering IV lasix. Patient to continue on normal saline at 50 mls/hr. Will also be given albumin today. Physical therapy and occupational therapy consulted as patient has had prolonged hospital stay and increasing weakness. Will continue with pain management and antinausea medications. Encouraged oral intake Continue on Levophed per sales secretary. Overall prognosis is extremely guarded at this time. Condition is critical. Repeat blood work in the AM. The impression and plan of care has been dictated by Kimberly Lehman, Nurse Practitioner as directed. Dr. Leeanne MD I have performed a history and physical examination and medical decision making of this patient, discussed the same with the dictator, and agree with the dictators assessment and plan as written, documented as a scribe. Based on total visit time, I have performed more than 50% of this visit. Objective - Vital Signs Vital signs: Vital Signs Temp 98.1 F 12/22/23 02:00 Pulse 95 12/22/23 07:00 Resp 15 12/22/23 07:00 BP 93/43 12/22/23 07:00 Pulse Ox 96 12/22/23 07:00 FiO2 Intake & Output 12/21/23 12/22/23 12/22/23 18:59 06:59 18:59 Intake Total 345 116.842 73.905 Output Total 975 155 30 Balance -630 -38.158 43.905 Weight 145 kg Intake: IV 100 50 Sodium Chloride 0.9% 1, 100 50 000 ml @ 50 mls/hr IV . Q20H [facility] Rx#:[id number] Intake, IV Titration 16.842 23.905 Amount Norepinephrine 4 mg In 16.842 23.905 Sodium Chloride 0.9% 250 ml @ 0.03 MCG/KG/MIN 16. 299 mls/hr IV .[id number] [facility] Rx#:[id number] Blood Product 345 Platelet Pheresis Pas 345 Psoralen Unit [id number] Output: Urine 975 155 30 Other: Voiding Method Indwelling Catheter Indwelling Catheter - Labs CBC & Chem 7: 12/22/23 04:22 12/22/23 04:22 Labs: Abnormal Lab Results - Last 24 Hours (Table) 12/22/23 12/22/23 12/22/23 Range/Units 03:54 04:18 04:18 RBC (3.80-5.40) m/uL Hgb (11.4-16.0) gm/dL Hct (34.0-46.0) % RDW (11.5-15.5) % PT (10.0-12.5) sec INR (<1.2) APTT (22.0-30.0) sec Fibrinogen (200-500) mg/dL ABG pH 7.49 H (7.35-7.45) ABG pO2 73 L (83-108) mmHg ABG HCO3 26 H (21-25) mmol/L ABG Total CO2 27 H (19-24) mmol/L Sodium (137-145) mmol/L Potassium (3.5-5.1) mmol/L BUN (7-17) mg/dL Creatinine (0.52-1.04) mg/dL Glucose (74-99) mg/dL POC Glucose (mg/dL) 112 H 118 H (70-110) mg/dL Plasma Lactic Acid Varun (0.7-2.0) mmol/L Calcium (8.4-10.2) mg/dL Phosphorus (2.5-4.5) mg/dL Magnesium (1.6-2.3) mg/dL Total Bilirubin (0.2-1.3) mg/dL AST (14-36) U/L ALT (4-34) U/L Alkaline Phosphatase (38-126) U/L Total Protein (6.3-8.2) g/dL Albumin (3.5-5.0) g/dL 12/22/23 12/22/23 12/22/23 Range/Units 04:22 04:22 04:22 RBC 3.21 L (3.80-5.40) m/uL Hgb 9.6 L (11.4-16.0) gm/dL Hct 30.3 L (34.0-46.0) % RDW 22.1 H (11.5-15.5) % PT 20.5 H (10.0-12.5) sec INR 2.0 H (<1.2) APTT 49.7 H (22.0-30.0) sec Fibrinogen 191 L (200-500) mg/dL ABG pH (7.35-7.45) ABG pO2 (83-108) mmHg ABG HCO3 (21-25) mmol/L ABG Total CO2 (19-24) mmol/L Sodium 136 L (137-145) mmol/L Potassium 5.5 H (3.5-5.1) mmol/L BUN 87 H (7-17) mg/dL Creatinine 1.78 H (0.52-1.04) mg/dL Glucose 113 H (74-99) mg/dL POC Glucose (mg/dL) (70-110) mg/dL Plasma Lactic Acid Varun (0.7-2.0) mmol/L Calcium 6.5 L (8.4-10.2) mg/dL Phosphorus 5.8 H (2.5-4.5) mg/dL Magnesium 2.6 H (1.6-2.3) mg/dL Total Bilirubin 12.3 H (0.2-1.3) mg/dL AST 408 H (14-36) U/L ALT 71 H (4-34) U/L Alkaline Phosphatase 235 H (38-126) U/L Total Protein 3.9 L (6.3-8.2) g/dL Albumin 1.5 L (3.5-5.0) g/dL 12/22/23 Range/Units 04:22 RBC (3.80-5.40) m/uL Hgb (11.4-16.0) gm/dL Hct (34.0-46.0) % RDW (11.5-15.5) % PT (10.0-12.5) sec INR (<1.2) APTT (22.0-30.0) sec Fibrinogen (200-500) mg/dL ABG pH (7.35-7.45) ABG pO2 (83-108) mmHg ABG HCO3 (21-25) mmol/L ABG Total CO2 (19-24) mmol/L Sodium (137-145) mmol/L Potassium (3.5-5.1) mmol/L BUN (7-17) mg/dL Creatinine (0.52-1.04) mg/dL Glucose (74-99) mg/dL POC Glucose (mg/dL) (70-110) mg/dL Plasma Lactic Acid Varun 7.8 H* (0.7-2.0) mmol/L Calcium (8.4-10.2) mg/dL Phosphorus (2.5-4.5) mg/dL Magnesium (1.6-2.3) mg/dL Total Bilirubin (0.2-1.3) mg/dL AST (14-36) U/L ALT (4-34) U/L Alkaline Phosphatase (38-126) U/L Total Protein (6.3-8.2) g/dL Albumin (3.5-5.0) g/dL Assessment and Plan Time with Patient: Greater than 30
[2023-12-22] MEDS: ADENOSINE 3 MG/ML 2 ML VIAL IVP STA ×2 (17:00→19:05)
[2023-12-22] MEDS: FILGRASTIM-SNDZ 480 MCG/0.8 ML SYRINGE SQ SCH (17:09)
[2023-12-22] MEDS: VASOPRESSIN 60 UNIT in SODIUM CHLORIDE 0.9% 150 ML IV SCH (17:24)
[2023-12-22 17:26] LABS: African American GFR (CKD) 31 (>60 ml/min/1.73 sqM); Anion Gap 15 mmol/L; Blood Urea Nitrogen 89 mg/dL (7-17); Carbon Dioxide 21 mmol/L (22-30); Chloride 102 mmol/L (98-107); Glucose 65 mg/dL (74-99); Non-African American GFR(CKD) 27 (>60 ml/min/1.73 sqM); Potassium 5.7 mmol/L (3.5-5.1); Sodium 138 mmol/L (137-145)
[2023-12-22 17:29] LABS: Calcium 6.3 mg/dL (8.4-10.2)
[2023-12-22 17:34] LABS: Glucose,Whole Blood 69 mg/dL (70-110)
[2023-12-22 18:02] LABS: Glucose,Whole Blood 131 mg/dL (70-110)
[2023-12-22] MEDS: SODIUM BICARB 8.4% 50 ML SYR (1 MEQ/ML) IV STA ×2 (18:12→19:51)
[2023-12-22] MEDS: CALCIUM GLUCONATE IN NACL 2 GM in SALINE 1 100ML.BAG IVPB ONE (18:22)
[2023-12-22] MEDS: INSULIN REGULAR 100 UNIT/ML VIAL (IV) IV ONE (18:41)
[2023-12-22 18:43] LABS: Anisocytosis Moderate; HCT 23.7 % (34.0-46.0); Hypochromasia Marked; MCH 29.7 pg (25.0-35.0); MCHC 30.8 g/dL (31.0-37.0); MCV 96.4 fL (80.0-100.0); Macrocytosis Moderate; Mean Platelet Volume 7.7; RBC 2.46 m/uL (3.80-5.40); RDW 22.4 % (11.5-15.5)
[2023-12-22] MEDS: DEXTROSE 50% SYRINGE 50 ML IVP STA (18:46)
[2023-12-22 18:47] LABS: Platelet Count 11 k/uL (150-450); WBC 0.5 k/uL (3.8-10.6)
[2023-12-22 18:56] LABS: INR 2.5 (<1.2); Partial Thromboplastin Time 62.7 sec (22.0-30.0); Prothrombin Time 24.6 sec (10.0-12.5)
[2023-12-22 18:57] LABS: Albumin 1.6 g/dL (3.5-5.0); Bilirubin, Conjugated 7.6 mg/dL (0.0-0.3); Bilirubin, Delta 1.6 mg/dL (0.0-0.2); Bilirubin,Unconjugated 2.4 mg/dL (0.0-1.1); Total Bilirubin 11.6 mg/dL (0.2-1.3); Total Protein 3.7 g/dL (6.3-8.2); Uric Acid 6.9 mg/dL (3.7-7.4)
[2023-12-22] MEDS: ADENOSINE 3 MG/ML 2 ML VIAL IVP ONE (19:04)
[2023-12-22 19:14] LABS: Polychromasia Present; Target Cells Present
[2023-12-22] MEDS: DEXTROSE 5% IN WATER 100 ML with AMIODARONE 150 MG IV ONE (19:16)
[2023-12-22] MEDS: AMIODARONE 360 MG in DEXTROSE 5% IN WATER 200 ML IV ONE (19:22)
[2023-12-22 19:24] LABS: HGB 7.3 gm/dL (11.4-16.0)
[2023-12-22 19:26] LABS: ABG HCO3 23 mmol/L (21-25); ABG Oxygen Saturation 94.5 % (94-97); ABG PCO2 42 mmHg (35-45); ABG PH 7.34 (7.35-7.45); ABG PO2 75 mmHg (83-108); ABG TCO2 24 mmol/L (19-24); Allen Test Performed? Yes
[2023-12-22] MEDS: DILTIAZEM 125 MG in SODIUM CHLORIDE 0.9% 100 ML IV SCH (19:29)
[2023-12-22] MEDS: CISATRACURIUM 2 MG/ML 5 ML VIAL IV ONE ×2 (19:51→21:30)
[2023-12-22] MEDS: MORPHINE SULFATE 4 MG/ML SYRINGE IVP STA (19:53)
[2023-12-22] MEDS: NOREPINEPHRINE 8 MG in SODIUM CHLORIDE 0.9% 250 ML IV SCH (21:00)
[2023-12-22 21:17] LABS: ABG Base Excess -2.7 mmol/L; ABG HCO3 22 mmol/L (21-25); ABG Oxygen Saturation 99.7 % (94-97); ABG PCO2 38 mmHg (35-45); ABG PH 7.38 (7.35-7.45); ABG PO2 299 mmHg (83-108); ABG TCO2 24 mmol/L (19-24); Allen Test Performed? Yes
[2023-12-22] MEDS: propofoL 100 ML IV ONE (21:31)
[2023-12-22] MEDS: PROPOFOL 10 MG/ML 20 ML VIAL IV ONE (21:31)
--- NOTE | 2023-12-22 22:02 | XR ---
EXAMINATION TYPE: XR chest 1V DATE OF EXAM: 12/22/2023 9:40 PM CLINICAL INDICATION:Female, 43 years old with history of intubation; [facility] COMPARISON: X-ray earlier today 5:20 AM, and before TECHNIQUE: XR chest 1V Portable AP radiograph of the chest.. FINDINGS: Lines/Tubes/Devices: Left arm PICC is stable with its tip over the mid right atrium. Placement of right subclavian central venous line with its tip a couple of millimeters below the PICC line. ET tube has been placed, tip 3.5 cm above the joseph. NG/OG tube has been placed, tip in the left upper quadrant over the expected location of the mid rosa isela ben body. Multiple monitor leads overlie the chest. Heart/mediastinum: Heart appears mildly enlarged. Mediastinum appears normal. Pulmonary vascularity: Not increased, Lungs/Pleura: Diffuse mild interstitial and patchy density persists with no significant change from t he last exam. Suspect stable small left pleural effusion. No pneumothorax. Musculoskeletal: Osseous structures appear grossly unchanged. Redemonstration of deformity of the lef t upper rib cage. No clearly acute bony abnormality is suggested. Other findings: None. IMPRESSION: 1. Lines and tubes in place, as above. 2. No significant change in lung findings compared to the prior exam.
--- NOTE | 2023-12-22 22:46 | OP ---
OPERATIVE REPORT DATE OF SERVICE : PROCEDURE PERFORMED: Placement of a right radial arterial line. PREOPERATIVE DIAGNOSES: Hypotension, acute hypoxic respiratory failure, patient is on multiple pressors, needed hemodynamic monitoring. ANESTHESIA USED: None deployed. DESCRIPTION OF PROCEDURE: The patient was placed in supine position, the right wrist was prepared in a sterile fashion. Drapes were applied. The right radial artery was palpated, difficult to cannulate, multiple attempts were made to cannulate the right radial artery as the blood pressure was extremely low. After cannulating the right radial artery, a guidewire was placed, and a Cook catheter was inserted over the guidewire, the guidewire was removed. Good blood flow, good waveform, no complications. Line was secured using 3.0 silk sutures. Again, the procedure was tolerated and no complications. MMODL / IJN: [id number] /
--- NOTE | 2023-12-22 23:01 | OP ---
OPERATIVE REPORT DATE OF SERVICE : PROCEDURE PERFORMED: Intubation and mechanical ventilation. PREOPERATIVE DIAGNOSES: Impending respiratory failure, the patient has hepatic encephalopathy, obtundation, and extremely low blood pressure requiring multiple pressors. POSTOPERATIVE DIAGNOSES: Impending respiratory failure, the patient has hepatic encephalopathy, obtundation, and extremely low blood pressure requiring multiple pressors. ANESTHESIA USED: Nimbex 10 mg IV push, propofol 100 mg IV push, and morphine sulfate 4 mg IV push. DESCRIPTION OF PROCEDURE: The patient was placed in a supine position, after adequate sedation and paralysis, the patient was being Ambu bagged, and as she was fully sedated and paralyzed, a GlideScope was used, and a size 4 blade was used. The vocal cords were visualized easily and there was lots of old blood noted in the oropharynx area. These were dry and old. Then, the 7.5 endotracheal tube was advanced and placed through the vocal cords into the upper portion of the trachea and there was a color change noted. Cuff was inflated, patient was connected to mechanical ventilation, and there was no evidence of any immediate complication. Chest x-ray showed adequate placement of the tube and no complications. MMODL / IJN: [id number] /
--- NOTE | 2023-12-22 23:10 | OP ---
OPERATIVE REPORT DATE OF SERVICE : PROCEDURE PERFORMED: Attempt to place a right femoral triple-lumen catheter. PREOPERATIVE DIAGNOSES: Profound hypotension requiring multiple pressors and acute respiratory failure with profound hepatic encephalopathy and obtundation. ANESTHESIA USED: None deployed. DESCRIPTION OF PROCEDURE: The right groin was prepared in a sterile fashion. Drapes were applied, attempted to cannulate the right femoral vein, I was able to easily access the femoral vein; however, multiple attempts were done to place the guidewire into the femoral vein, and these attempts had failed. The reason we started out with placement of a right femoral vein triple-lumen catheter was mostly because the patient has thrombocytopenia and a picture of DIC, I was trying to avoid the placement of a right subclavian central line; however, since attempts failed to place a right femoral triple-lumen catheter, I made no further attempts, and went ahead and placed a right subclavian central line easily and without complications. Please refer to the operative report of placement of the right subclavian triple-lumen catheter. MMODL / IJN: [id number] /
--- NOTE | 2023-12-22 23:22 | OP ---
OPERATIVE REPORT DATE OF SERVICE : PROCEDURE PERFORMED: Placement of a right subclavian triple-lumen catheter. PREOPERATIVE DIAGNOSES: Profound hypotension requiring multiple pressors. The patient is on multiple drips, she has 1 IV access, which is not sufficient. Hence, she needed a triple-lumen catheter placement. Hypoxic respiratory failure and hypotension. POSTOPERATIVE DIAGNOSES: Profound hypotension requiring multiple pressors. The patient is on multiple drips, she has 1 IV access, which is not sufficient. Hence, she needed a triple-lumen catheter placement. Hypoxic respiratory failure and hypotension. ANESTHESIA USED: 2 mL of 1% lidocaine. DESCRIPTION OF PROCEDURE: The patient was placed in Trendelenburg position. The area of the right subclavian region was prepared in a sterile fashion. Drapes were applied. Using the infraclavicular approach, the right subclavian vein was cannulated easily. A guidewire was placed, the area around the guidewire was dilated. Then, a triple-lumen catheter was inserted over the guidewire, and the guidewire was removed. Good blood flow was noted in 3 different ports of the triple-lumen catheter, line was secured using 3.0 silk sutures. Chest x-ray showed adequate placement of the line and no complications. MMODL / IJN: [id number] /
[2023-12-23 00:33] LABS: Glucose,Whole Blood 119 mg/dL (70-110)
[2023-12-23] MEDS: AMIODARONE 450 MG in DEXTROSE 5% IN WATER 250 ML IV SCH (01:03)
[2023-12-23] MEDS: INSULIN REGULAR 100 UNIT/ML VIAL (IV) IV ONE ×2 (01:08→11:53)
[2023-12-23] MEDS: DEXTROSE 50% SYRINGE 50 ML IVP STA ×2 (01:08→11:52)
[2023-12-23] MEDS: SODIUM BICARB 8.4% 50 ML SYR (1 MEQ/ML) IV STA ×2 (01:09→11:52)
[2023-12-23 05:31] LABS: Glucose,Whole Blood 122 mg/dL (70-110)
[2023-12-23 05:55] LABS: Anisocytosis Moderate; HCT 25.7 % (34.0-46.0); HGB 8.2 gm/dL (11.4-16.0); Hypochromasia Moderate; MCH 29.3 pg (25.0-35.0); MCV 91.7 fL (80.0-100.0); Macrocytosis Slight; Mean Platelet Volume 8.8; RBC 2.81 m/uL (3.80-5.40); RDW 23.4 % (11.5-15.5)
[2023-12-23 05:56] LABS: WBC 0.6 k/uL (3.8-10.6)
[2023-12-23 05:57] LABS: Platelet Count 9 k/uL (150-450)
[2023-12-23] MEDS: PIPERACILLIN-TAZOBACTAM 3.375 GM in SODIUM CHLORIDE 0.9% 100 ML IVPB SCH (05:58)
[2023-12-23 06:02] LABS: ABG Base Excess -2.4 mmol/L; ABG HCO3 22 mmol/L (21-25); ABG Oxygen Saturation 98.4 % (94-97); ABG PCO2 35 mmHg (35-45); ABG PH 7.41 (7.35-7.45); ABG PO2 97 mmHg (83-108); ABG TCO2 23 mmol/L (19-24); Allen Test Performed? Yes
[2023-12-23 06:18] LABS: INR 2.4 (<1.2); Partial Thromboplastin Time 50.8 sec (22.0-30.0); Prothrombin Time 23.8 sec (10.0-12.5)
[2023-12-23 06:19] LABS: Anisocytosis (M) Present; Poikilocytosis (M) Present; RBC Fragments Present; Target Cells Present
[2023-12-23] MEDS: FUROSEMIDE 10 MG/ML 10 ML VIAL IV STA (09:08)
[2023-12-23] MEDS: CHLORHEXIDINE GLUCONATE 15 ML CUP MUCOUS MEM SCH (09:09)
--- NOTE | 2023-12-23 09:12 | XR ---
EXAMINATION TYPE: XR chest 1V portable DATE OF EXAM: 12/23/2023 Comparison: 12/22/2023 Clinical History: 43-year-old female Tube placement Findings: ET tube and NG tube are satisfactory. Right subclavian CVC tip in the right atrium. Left PICC tip upp er right atrium now. Heart mildly enlarged. Diffuse interstitial and now worsening patchy bilateral o pacities. Ongoing dense retrocardiac opacity and small left pleural effusion. Impression: 1. Slight interval worsening now with developing bilateral patchy airspace opacities. 2. Ongoing dense retrocardiac opacity and small left pleural effusion.
[2023-12-23 10:23] LABS: ALT 138 U/L (4-34); AST 677 U/L (14-36); African American GFR (CKD) 27 (>60 ml/min/1.73 sqM); Albumin 1.8 g/dL (3.5-5.0); Alkaline Phosphatase 177 U/L (38-126); Anion Gap 17 mmol/L; Blood Urea Nitrogen 93 mg/dL (7-17); Calcium 6.6 mg/dL (8.4-10.2); Carbon Dioxide 20 mmol/L (22-30); Chloride 101 mmol/L (98-107); Glucose 113 mg/dL (74-99); Non-African American GFR(CKD) 23 (>60 ml/min/1.73 sqM); Phosphorus 7.7 mg/dL (2.5-4.5); Potassium 5.8 mmol/L (3.5-5.1); Sodium 138 mmol/L (137-145); Total Protein 3.9 g/dL (6.3-8.2); Uric Acid 7.9 mg/dL (3.7-7.4)
[2023-12-23 10:26] LABS: Total Bilirubin 16.1 mg/dL (0.2-1.3)
--- NOTE | 2023-12-23 10:27 | P.PN ---
Subjective Progress Note Date: 12/23/23 CHIEF COMPLAINT: Abdominal pain HISTORY OF PRESENT ILLNESS: Patient remains in the ICU. She required to be intubated and placed on mechanical ventilation yesterday. She is on Levophed and vasopressin for hypotension. Afebrile. WBC 0.6 Hgb 8.2 platelets 9 INR 2.4 lactic acid 11.9 PHYSICAL EXAM: VITAL SIGNS: Reviewed. GENERAL: Intubated and sedated HEENT: Sclera icterus present ABDOMEN: Soft. Nondistended. diffuse tenderness Skin: Jaundiced ASSESSMENT: 1. Metastatic breast cancer with liver metastasis and Liver failure 2. Intractable nausea 3. DIC followed by oncology service 4. Fluid collection in the pelvis on CT likely old blood 5. Recent laparoscopic cholecystectomy on December 09, 2023 with liver lesion biopsy. 6. History of breast cancer status post bilateral mastectomy, chemo and radiation PLAN: -Continue ICU management -Continue supportive care -Patient followed by oncology service closely -No surgical intervention planned Physician Cq Developer note has been reviewed by physician. Signing provider agrees with the documented findings, assessment, and plan of care. Objective - Vital Signs Vital signs: Vital Signs Temp 97.6 F 12/23/23 08:00 Pulse 74 12/23/23 10:00 Resp 8 L 12/23/23 10:00 BP 89/43 12/23/23 09:45 Pulse Ox 96 12/23/23 10:00 FiO2 50 12/23/23 08:00 Intake & Output 12/22/23 12/23/23 12/23/23 18:59 06:59 18:59 Intake Total 4501.556 9949.284 485.250 Output Total 140 600 25 Balance 1556.249 524.284 460.250 Weight 145 kg 145.1 kg Intake: IV 700 77 56 Piperacillin-Tazobactam 3 200 .375 gm In Sodium Chloride 0.9% 100 ml @ 25 mls/hr IVPB Q8HR [facility] Rx# :[id number] Pressure Bag 27 6 Sodium Chloride 0.9% 1, 500 50 50 000 ml @ 50 mls/hr IV . Q20H [facility] Rx#:[id number] Intake, IV Titration 719.249 814.284 429.250 Amount Norepinephrine 4 mg In 719.249 Sodium Chloride 0.9% 250 ml @ 0.03 MCG/KG/MIN 16. 299 mls/hr IV .[id number] [facility] Rx#:[id number] Norepinephrine 8 mg In 735.259 272.168 Sodium Chloride 0.9% 250 ml @ 0.22 MCG/KG/MIN 61. 727 mls/hr IV .Q4H11M [facility] Rx#:[id number] Vasopressin 60 unit In 71.604 Sodium Chloride 0.9% 150 ml @ 0.03 UNITS/MIN 4.59 mls/hr IV .Q24H [facility] Rx#: [id number] propofoL 1,000 mg In 79.025 85.478 Empty Bag 1 bag @ 15 MCG/ KG/MIN 13.05 mls/hr IV . Q7H40M [facility] Rx#:[id number] Blood Product 277 233 Platelet Pheresis Pas 277 Psoralen Unit [id number] Platelet Pheresis Pas 233 Psoralen Unit [id number] Output: Gastric Drainage 400 Urine 140 200 25 Other: Voiding Method Indwelling Catheter Indwelling Catheter ABP, PAP, CO, CI - Last Documented Arterial Blood Pressure 98/42 - Labs CBC & Chem 7: 12/23/23 05:20 12/22/23 21:00 Labs: Abnormal Lab Results - Last 24 Hours (Table) 12/22/23 12/22/23 12/22/23 Range/Units 06:39 10:25 16:40 WBC (3.8-10.6) k/uL RBC (3.80-5.40) m/uL Hgb (11.4-16.0) gm/dL Hct (34.0-46.0) % MCHC (31.0-37.0) g/dL RDW (11.5-15.5) % Plt Count (150-450) k/uL PT (10.0-12.5) sec INR (<1.2) APTT (22.0-30.0) sec Fibrinogen (200-500) mg/dL ABG pH (7.35-7.45) ABG pO2 (83-108) mmHg ABG O2 Saturation (94-97) % Potassium (3.5-5.1) mmol/L Carbon Dioxide (22-30) mmol/L BUN (7-17) mg/dL Creatinine (0.52-1.04) mg/dL Glucose (74-99) mg/dL POC Glucose (mg/dL) (70-110) mg/dL Plasma Lactic Acid Varun 7.8 H* 9.7 H* (0.7-2.0) mmol/L Calcium (8.4-10.2) mg/dL Phosphorus (2.5-4.5) mg/dL Total Bilirubin (0.2-1.3) mg/dL Conjugated Bilirubin (0.0-0.3) mg/dL Unconjugated Bilirubin (0.0-1.1) mg/dL Delta Bilirubin (0.0-0.2) mg/dL AST (14-36) U/L ALT (4-34) U/L Alkaline Phosphatase (38-126) U/L Total Protein (6.3-8.2) g/dL Albumin (3.5-5.0) g/dL Crossmatch See Detail 12/22/23 12/22/23 12/22/23 Range/Units 16:40 17:31 18:01 WBC (3.8-10.6) k/uL RBC (3.80-5.40) m/uL Hgb (11.4-16.0) gm/dL Hct (34.0-46.0) % MCHC (31.0-37.0) g/dL RDW (11.5-15.5) % Plt Count (150-450) k/uL PT (10.0-12.5) sec INR (<1.2) APTT (22.0-30.0) sec Fibrinogen (200-500) mg/dL ABG pH (7.35-7.45) ABG pO2 (83-108) mmHg ABG O2 Saturation (94-97) % Potassium 5.7 H (3.5-5.1) mmol/L Carbon Dioxide 21 L (22-30) mmol/L BUN 89 H (7-17) mg/dL Creatinine 2.19 H (0.52-1.04) mg/dL Glucose 65 L (74-99) mg/dL POC Glucose (mg/dL) 69 L 131 H (70-110) mg/dL Plasma Lactic Acid Varun (0.7-2.0) mmol/L Calcium 6.3 L* (8.4-10.2) mg/dL Phosphorus (2.5-4.5) mg/dL Total Bilirubin (0.2-1.3) mg/dL Conjugated Bilirubin (0.0-0.3) mg/dL Unconjugated Bilirubin (0.0-1.1) mg/dL Delta Bilirubin (0.0-0.2) mg/dL AST (14-36) U/L ALT (4-34) U/L Alkaline Phosphatase (38-126) U/L Total Protein (6.3-8.2) g/dL Albumin (3.5-5.0) g/dL Crossmatch 12/22/23 12/22/23 12/22/23 Range/Units 18:32 18:32 18:32 WBC 0.5 L* (3.8-10.6) k/uL RBC 2.46 L (3.80-5.40) m/uL Hgb 7.3 L D (11.4-16.0) gm/dL Hct 23.7 L (34.0-46.0) % MCHC 30.8 L (31.0-37.0) g/dL RDW 22.4 H (11.5-15.5) % Plt Count 11 L* D (150-450) k/uL PT 24.6 H (10.0-12.5) sec INR 2.5 H (<1.2) APTT 62.7 H (22.0-30.0) sec Fibrinogen 137 L (200-500) mg/dL ABG pH (7.35-7.45) ABG pO2 (83-108) mmHg ABG O2 Saturation (94-97) % Potassium (3.5-5.1) mmol/L Carbon Dioxide (22-30) mmol/L BUN (7-17) mg/dL Creatinine (0.52-1.04) mg/dL Glucose (74-99) mg/dL POC Glucose (mg/dL) (70-110) mg/dL Plasma Lactic Acid Varun (0.7-2.0) mmol/L Calcium (8.4-10.2) mg/dL Phosphorus 7.0 H (2.5-4.5) mg/dL Total Bilirubin 11.6 H (0.2-1.3) mg/dL Conjugated Bilirubin 7.6 H (0.0-0.3) mg/dL Unconjugated Bilirubin 2.4 H (0.0-1.1) mg/dL Delta Bilirubin 1.6 H (0.0-0.2) mg/dL AST 428 H (14-36) U/L ALT 80 H (4-34) U/L Alkaline Phosphatase 161 H (38-126) U/L Total Protein 3.7 L (6.3-8.2) g/dL Albumin 1.6 L (3.5-5.0) g/dL Crossmatch 12/22/23 12/22/23 12/22/23 Range/Units 19:11 21:00 21:14 WBC (3.8-10.6) k/uL RBC (3.80-5.40) m/uL Hgb (11.4-16.0) gm/dL Hct (34.0-46.0) % MCHC (31.0-37.0) g/dL RDW (11.5-15.5) % Plt Count (150-450) k/uL PT (10.0-12.5) sec INR (<1.2) APTT (22.0-30.0) sec Fibrinogen (200-500) mg/dL ABG pH 7.34 L (7.35-7.45) ABG pO2 75 L 299 H (83-108) mmHg ABG O2 Saturation 99.7 H (94-97) % Potassium 5.7 H (3.5-5.1) mmol/L Carbon Dioxide (22-30) mmol/L BUN (7-17) mg/dL Creatinine (0.52-1.04) mg/dL Glucose (74-99) mg/dL POC Glucose (mg/dL) (70-110) mg/dL Plasma Lactic Acid Varun (0.7-2.0) mmol/L Calcium (8.4-10.2) mg/dL Phosphorus (2.5-4.5) mg/dL Total Bilirubin (0.2-1.3) mg/dL Conjugated Bilirubin (0.0-0.3) mg/dL Unconjugated Bilirubin (0.0-1.1) mg/dL Delta Bilirubin (0.0-0.2) mg/dL AST (14-36) U/L ALT (4-34) U/L Alkaline Phosphatase (38-126) U/L Total Protein (6.3-8.2) g/dL Albumin (3.5-5.0) g/dL Crossmatch 12/23/23 12/23/23 12/23/23 Range/Units 00:32 05:20 05:20 WBC (3.8-10.6) k/uL RBC (3.80-5.40) m/uL Hgb (11.4-16.0) gm/dL Hct (34.0-46.0) % MCHC (31.0-37.0) g/dL RDW (11.5-15.5) % Plt Count (150-450) k/uL PT 23.8 H (10.0-12.5) sec INR 2.4 H (<1.2) APTT 50.8 H (22.0-30.0) sec Fibrinogen (200-500) mg/dL ABG pH (7.35-7.45) ABG pO2 (83-108) mmHg ABG O2 Saturation (94-97) % Potassium (3.5-5.1) mmol/L Carbon Dioxide (22-30) mmol/L BUN (7-17) mg/dL Creatinine (0.52-1.04) mg/dL Glucose (74-99) mg/dL POC Glucose (mg/dL) 119 H (70-110) mg/dL Plasma Lactic Acid Varun 11.5 H* (0.7-2.0) mmol/L Calcium (8.4-10.2) mg/dL Phosphorus (2.5-4.5) mg/dL Total Bilirubin (0.2-1.3) mg/dL Conjugated Bilirubin (0.0-0.3) mg/dL Unconjugated Bilirubin (0.0-1.1) mg/dL Delta Bilirubin (0.0-0.2) mg/dL AST (14-36) U/L ALT (4-34) U/L Alkaline Phosphatase (38-126) U/L Total Protein (6.3-8.2) g/dL Albumin (3.5-5.0) g/dL Crossmatch 12/23/23 12/23/23 12/23/23 Range/Units 05:20 05:30 05:58 WBC 0.6 L* (3.8-10.6) k/uL RBC 2.81 L (3.80-5.40) m/uL Hgb 8.2 L (11.4-16.0) gm/dL Hct 25.7 L (34.0-46.0) % MCHC (31.0-37.0) g/dL RDW 23.4 H (11.5-15.5) % Plt Count 9 L* (150-450) k/uL PT (10.0-12.5) sec INR (<1.2) APTT (22.0-30.0) sec Fibrinogen (200-500) mg/dL ABG pH (7.35-7.45) ABG pO2 (83-108) mmHg ABG O2 Saturation 98.4 H (94-97) % Potassium (3.5-5.1) mmol/L Carbon Dioxide (22-30) mmol/L BUN (7-17) mg/dL Creatinine (0.52-1.04) mg/dL Glucose (74-99) mg/dL POC Glucose (mg/dL) 122 H (70-110) mg/dL Plasma Lactic Acid Varun (0.7-2.0) mmol/L Calcium (8.4-10.2) mg/dL Phosphorus (2.5-4.5) mg/dL Total Bilirubin (0.2-1.3) mg/dL Conjugated Bilirubin (0.0-0.3) mg/dL Unconjugated Bilirubin (0.0-1.1) mg/dL Delta Bilirubin (0.0-0.2) mg/dL AST (14-36) U/L ALT (4-34) U/L Alkaline Phosphatase (38-126) U/L Total Protein (6.3-8.2) g/dL Albumin (3.5-5.0) g/dL Crossmatch 12/23/23 Range/Units 08:48 WBC (3.8-10.6) k/uL RBC (3.80-5.40) m/uL Hgb (11.4-16.0) gm/dL Hct (34.0-46.0) % MCHC (31.0-37.0) g/dL RDW (11.5-15.5) % Plt Count (150-450) k/uL PT (10.0-12.5) sec INR (<1.2) APTT (22.0-30.0) sec Fibrinogen (200-500) mg/dL ABG pH (7.35-7.45) ABG pO2 (83-108) mmHg ABG O2 Saturation (94-97) % Potassium (3.5-5.1) mmol/L Carbon Dioxide (22-30) mmol/L BUN (7-17) mg/dL Creatinine (0.52-1.04) mg/dL Glucose (74-99) mg/dL POC Glucose (mg/dL) (70-110) mg/dL Plasma Lactic Acid Varun 11.9 H* (0.7-2.0) mmol/L Calcium (8.4-10.2) mg/dL Phosphorus (2.5-4.5) mg/dL Total Bilirubin (0.2-1.3) mg/dL Conjugated Bilirubin (0.0-0.3) mg/dL Unconjugated Bilirubin (0.0-1.1) mg/dL Delta Bilirubin (0.0-0.2) mg/dL AST (14-36) U/L ALT (4-34) U/L Alkaline Phosphatase (38-126) U/L Total Protein (6.3-8.2) g/dL Albumin (3.5-5.0) g/dL Crossmatch
[2023-12-23 10:41] VITALS: BP 89/43; TEMP 97.6
--- NOTE | 2023-12-23 11:10 | P.PN ---
Subjective Patient is seen in follow-up for acute kidney injury. Renal function worse. Urine output 5 to 10 cc an hour. Currently intubated. On Levophed, v asopressin, amiodarone drip. Vital signs are stable. On vasopressor support. General: Resting in bed. HEENT: Intubated. LUNGS: Scattered rhonchi. HEART: Rate and Rhythm are regular. ABDOMEN: Nontender. EXTREMITITES: 2+ edema. Objective - Vital Signs Vital signs: Vital Signs Temp 97.6 F 12/23/23 08:00 Pulse 74 12/23/23 10:00 Resp 8 L 12/23/23 10:00 BP 89/43 12/23/23 09:45 Pulse Ox 96 12/23/23 10:00 FiO2 50 12/23/23 08:00 Intake & Output 12/22/23 12/23/23 12/23/23 18:59 06:59 18:59 Intake Total 2135.052 3991.284 591.250 Output Total 140 600 35 Balance 1556.249 524.284 556.250 Weight 145 kg 145.1 kg Intake: IV 700 77 162 Piperacillin-Tazobactam 3 200 .375 gm In Sodium Chloride 0.9% 100 ml @ 25 mls/hr IVPB Q8HR [facility] Rx# :[id number] Pressure Bag 27 12 Sodium Chloride 0.9% 1, 500 50 150 000 ml @ 50 mls/hr IV . Q20H [facility] Rx#:[id number] Intake, IV Titration 719.249 814.284 429.250 Amount Norepinephrine 4 mg In 719.249 Sodium Chloride 0.9% 250 ml @ 0.03 MCG/KG/MIN 16. 299 mls/hr IV .[id number] [facility] Rx#:[id number] Norepinephrine 8 mg In 735.259 272.168 Sodium Chloride 0.9% 250 ml @ 0.22 MCG/KG/MIN 61. 727 mls/hr IV .Q4H11M [facility] Rx#:[id number] Vasopressin 60 unit In 71.604 Sodium Chloride 0.9% 150 ml @ 0.03 UNITS/MIN 4.59 mls/hr IV .Q24H [facility] Rx#: [id number] propofoL 1,000 mg In 79.025 85.478 Empty Bag 1 bag @ 15 MCG/ KG/MIN 13.05 mls/hr IV . Q7H40M [facility] Rx#:[id number] Blood Product 277 233 Platelet Pheresis Pas 277 Psoralen Unit [id number] Platelet Pheresis Pas 233 Psoralen Unit [id number] Output: Gastric Drainage 400 Urine 140 200 35 Other: Voiding Method Indwelling Catheter Indwelling Catheter Indwelling Catheter ABP, PAP, CO, CI - Last Documented Arterial Blood Pressure 98/42 - Labs CBC & Chem 7: 12/23/23 05:20 12/23/23 05:20 Labs: Abnormal Lab Results - Last 24 Hours (Table) 12/22/23 12/22/23 12/22/23 Range/Units 06:39 16:40 16:40 WBC (3.8-10.6) k/uL RBC (3.80-5.40) m/uL Hgb (11.4-16.0) gm/dL Hct (34.0-46.0) % MCHC (31.0-37.0) g/dL RDW (11.5-15.5) % Plt Count (150-450) k/uL PT (10.0-12.5) sec INR (<1.2) APTT (22.0-30.0) sec Fibrinogen (200-500) mg/dL ABG pH (7.35-7.45) ABG pO2 (83-108) mmHg ABG O2 Saturation (94-97) % Potassium 5.7 H (3.5-5.1) mmol/L Carbon Dioxide 21 L (22-30) mmol/L BUN 89 H (7-17) mg/dL Creatinine 2.19 H (0.52-1.04) mg/dL Glucose 65 L (74-99) mg/dL POC Glucose (mg/dL) (70-110) mg/dL Plasma Lactic Acid Varun 9.7 H* (0.7-2.0) mmol/L Uric Acid (3.7-7.4) mg/dL Calcium 6.3 L* (8.4-10.2) mg/dL Phosphorus (2.5-4.5) mg/dL Total Bilirubin (0.2-1.3) mg/dL Conjugated Bilirubin (0.0-0.3) mg/dL Unconjugated Bilirubin (0.0-1.1) mg/dL Delta Bilirubin (0.0-0.2) mg/dL AST (14-36) U/L ALT (4-34) U/L Alkaline Phosphatase (38-126) U/L Total Protein (6.3-8.2) g/dL Albumin (3.5-5.0) g/dL Crossmatch See Detail 12/22/23 12/22/23 12/22/23 Range/Units 17:31 18:01 18:32 WBC (3.8-10.6) k/uL RBC (3.80-5.40) m/uL Hgb (11.4-16.0) gm/dL Hct (34.0-46.0) % MCHC (31.0-37.0) g/dL RDW (11.5-15.5) % Plt Count (150-450) k/uL PT (10.0-12.5) sec INR (<1.2) APTT (22.0-30.0) sec Fibrinogen (200-500) mg/dL ABG pH (7.35-7.45) ABG pO2 (83-108) mmHg ABG O2 Saturation (94-97) % Potassium (3.5-5.1) mmol/L Carbon Dioxide (22-30) mmol/L BUN (7-17) mg/dL Creatinine (0.52-1.04) mg/dL Glucose (74-99) mg/dL POC Glucose (mg/dL) 69 L 131 H (70-110) mg/dL Plasma Lactic Acid Varun (0.7-2.0) mmol/L Uric Acid (3.7-7.4) mg/dL Calcium (8.4-10.2) mg/dL Phosphorus 7.0 H (2.5-4.5) mg/dL Total Bilirubin 11.6 H (0.2-1.3) mg/dL Conjugated Bilirubin 7.6 H (0.0-0.3) mg/dL Unconjugated Bilirubin 2.4 H (0.0-1.1) mg/dL Delta Bilirubin 1.6 H (0.0-0.2) mg/dL AST 428 H (14-36) U/L ALT 80 H (4-34) U/L Alkaline Phosphatase 161 H (38-126) U/L Total Protein 3.7 L (6.3-8.2) g/dL Albumin 1.6 L (3.5-5.0) g/dL Crossmatch 12/22/23 12/22/23 12/22/23 Range/Units 18:32 18:32 19:11 WBC 0.5 L* (3.8-10.6) k/uL RBC 2.46 L (3.80-5.40) m/uL Hgb 7.3 L D (11.4-16.0) gm/dL Hct 23.7 L (34.0-46.0) % MCHC 30.8 L (31.0-37.0) g/dL RDW 22.4 H (11.5-15.5) % Plt Count 11 L* D (150-450) k/uL PT 24.6 H (10.0-12.5) sec INR 2.5 H (<1.2) APTT 62.7 H (22.0-30.0) sec Fibrinogen 137 L (200-500) mg/dL ABG pH 7.34 L (7.35-7.45) ABG pO2 75 L (83-108) mmHg ABG O2 Saturation (94-97) % Potassium (3.5-5.1) mmol/L Carbon Dioxide (22-30) mmol/L BUN (7-17) mg/dL Creatinine (0.52-1.04) mg/dL Glucose (74-99) mg/dL POC Glucose (mg/dL) (70-110) mg/dL Plasma Lactic Acid Varun (0.7-2.0) mmol/L Uric Acid (3.7-7.4) mg/dL Calcium (8.4-10.2) mg/dL Phosphorus (2.5-4.5) mg/dL Total Bilirubin (0.2-1.3) mg/dL Conjugated Bilirubin (0.0-0.3) mg/dL Unconjugated Bilirubin (0.0-1.1) mg/dL Delta Bilirubin (0.0-0.2) mg/dL AST (14-36) U/L ALT (4-34) U/L Alkaline Phosphatase (38-126) U/L Total Protein (6.3-8.2) g/dL Albumin (3.5-5.0) g/dL Crossmatch 12/22/23 12/22/23 12/23/23 Range/Units 21:00 21:14 00:32 WBC (3.8-10.6) k/uL RBC (3.80-5.40) m/uL Hgb (11.4-16.0) gm/dL Hct (34.0-46.0) % MCHC (31.0-37.0) g/dL RDW (11.5-15.5) % Plt Count (150-450) k/uL PT (10.0-12.5) sec INR (<1.2) APTT (22.0-30.0) sec Fibrinogen (200-500) mg/dL ABG pH (7.35-7.45) ABG pO2 299 H (83-108) mmHg ABG O2 Saturation 99.7 H (94-97) % Potassium 5.7 H (3.5-5.1) mmol/L Carbon Dioxide (22-30) mmol/L BUN (7-17) mg/dL Creatinine (0.52-1.04) mg/dL Glucose (74-99) mg/dL POC Glucose (mg/dL) 119 H (70-110) mg/dL Plasma Lactic Acid Varun (0.7-2.0) mmol/L Uric Acid (3.7-7.4) mg/dL Calcium (8.4-10.2) mg/dL Phosphorus (2.5-4.5) mg/dL Total Bilirubin (0.2-1.3) mg/dL Conjugated Bilirubin (0.0-0.3) mg/dL Unconjugated Bilirubin (0.0-1.1) mg/dL Delta Bilirubin (0.0-0.2) mg/dL AST (14-36) U/L ALT (4-34) U/L Alkaline Phosphatase (38-126) U/L Total Protein (6.3-8.2) g/dL Albumin (3.5-5.0) g/dL Crossmatch 12/23/23 12/23/23 12/23/23 Range/Units 05:20 05:20 05:20 WBC (3.8-10.6) k/uL RBC (3.80-5.40) m/uL Hgb (11.4-16.0) gm/dL Hct (34.0-46.0) % MCHC (31.0-37.0) g/dL RDW (11.5-15.5) % Plt Count (150-450) k/uL PT 23.8 H (10.0-12.5) sec INR 2.4 H (<1.2) APTT 50.8 H (22.0-30.0) sec Fibrinogen (200-500) mg/dL ABG pH (7.35-7.45) ABG pO2 (83-108) mmHg ABG O2 Saturation (94-97) % Potassium 5.8 H (3.5-5.1) mmol/L Carbon Dioxide 20 L (22-30) mmol/L BUN 93 H (7-17) mg/dL Creatinine 2.49 H (0.52-1.04) mg/dL Glucose 113 H (74-99) mg/dL POC Glucose (mg/dL) (70-110) mg/dL Plasma Lactic Acid Varun 11.5 H* (0.7-2.0) mmol/L Uric Acid 7.9 H (3.7-7.4) mg/dL Calcium 6.6 L (8.4-10.2) mg/dL Phosphorus 7.7 H (2.5-4.5) mg/dL Total Bilirubin 16.1 H* (0.2-1.3) mg/dL Conjugated Bilirubin (0.0-0.3) mg/dL Unconjugated Bilirubin (0.0-1.1) mg/dL Delta Bilirubin (0.0-0.2) mg/dL AST 677 H (14-36) U/L ALT 138 H (4-34) U/L Alkaline Phosphatase 177 H (38-126) U/L Total Protein 3.9 L (6.3-8.2) g/dL Albumin 1.8 L (3.5-5.0) g/dL Crossmatch 12/23/23 12/23/23 12/23/23 Range/Units 05:20 05:30 05:58 WBC 0.6 L* (3.8-10.6) k/uL RBC 2.81 L (3.80-5.40) m/uL Hgb 8.2 L (11.4-16.0) gm/dL Hct 25.7 L (34.0-46.0) % MCHC (31.0-37.0) g/dL RDW 23.4 H (11.5-15.5) % Plt Count 9 L* (150-450) k/uL PT (10.0-12.5) sec INR (<1.2) APTT (22.0-30.0) sec Fibrinogen (200-500) mg/dL ABG pH (7.35-7.45) ABG pO2 (83-108) mmHg ABG O2 Saturation 98.4 H (94-97) % Potassium (3.5-5.1) mmol/L Carbon Dioxide (22-30) mmol/L BUN (7-17) mg/dL Creatinine (0.52-1.04) mg/dL Glucose (74-99) mg/dL POC Glucose (mg/dL) 122 H (70-110) mg/dL Plasma Lactic Acid Varun (0.7-2.0) mmol/L Uric Acid (3.7-7.4) mg/dL Calcium (8.4-10.2) mg/dL Phosphorus (2.5-4.5) mg/dL Total Bilirubin (0.2-1.3) mg/dL Conjugated Bilirubin (0.0-0.3) mg/dL Unconjugated Bilirubin (0.0-1.1) mg/dL Delta Bilirubin (0.0-0.2) mg/dL AST (14-36) U/L ALT (4-34) U/L Alkaline Phosphatase (38-126) U/L Total Protein (6.3-8.2) g/dL Albumin (3.5-5.0) g/dL Crossmatch 12/23/23 Range/Units 08:48 WBC (3.8-10.6) k/uL RBC (3.80-5.40) m/uL Hgb (11.4-16.0) gm/dL Hct (34.0-46.0) % MCHC (31.0-37.0) g/dL RDW (11.5-15.5) % Plt Count (150-450) k/uL PT (10.0-12.5) sec INR (<1.2) APTT (22.0-30.0) sec Fibrinogen (200-500) mg/dL ABG pH (7.35-7.45) ABG pO2 (83-108) mmHg ABG O2 Saturation (94-97) % Potassium (3.5-5.1) mmol/L Carbon Dioxide (22-30) mmol/L BUN (7-17) mg/dL Creatinine (0.52-1.04) mg/dL Glucose (74-99) mg/dL POC Glucose (mg/dL) (70-110) mg/dL Plasma Lactic Acid Varun 11.9 H* (0.7-2.0) mmol/L Uric Acid (3.7-7.4) mg/dL Calcium (8.4-10.2) mg/dL Phosphorus (2.5-4.5) mg/dL Total Bilirubin (0.2-1.3) mg/dL Conjugated Bilirubin (0.0-0.3) mg/dL Unconjugated Bilirubin (0.0-1.1) mg/dL Delta Bilirubin (0.0-0.2) mg/dL AST (14-36) U/L ALT (4-34) U/L Alkaline Phosphatase (38-126) U/L Total Protein (6.3-8.2) g/dL Albumin (3.5-5.0) g/dL Crossmatch Assessment and Plan Plan: Assessment: 1. Acute kidney injury secondary to tumor lysis syndrome and hemodynamic ATN. Elevated uric acid level, phosphorus level, mild hyperkalemia as well as hypocalcemia all suggestive of tumor lysis syndrome. Patient started chemotherapy December 16, 2023. Status post rasburicase December 18, 2023. Received IV contrast December 13, 2023 for CTA. Baseline creatinine 0.8-0.9 and peaked at 2.0 this admission - 2.49 today. Oliguric. No hydronephrosis noted on kidney ultrasound. 2. Metastatic breast cancer being followed by oncology. Patient has history of bilateral mastectomies and completed chemo in March 2023. 3. Metabolic acidosis secondary to acute kidney injury and IV fluids. Improved with bicarb drip. 4. DIC being followed by oncology. 5. Recent laparoscopic cholecystectomy December 09, 2023. 6. History of adrenal sufficiency maintained on Solu-Cortef. 7. Volume overload. 8. Hyperkalemia secondary to acute kidney injury and acidosis. 9. Hyperphosphatemia secondary to acute kidney injury. Plan: Status post IV albumin and IV Lasix given December 22, 2023 if no significant improvement in urine output. Potassium level staying high and has been medically treated multiple times. 10 units IV regular insulin with an amp of D50 and 2 A of sodium bicarb IV push now. Repeat potassium level in 3 hours. Consult vascular surgery for dialysis catheter placement. Will attempt SLED this afternoon - patient remains hemodynamically quite unstable. Strict I's and O's. Continue to monitor renal function and urine output. Avoid nephrotoxins. Maintain midodrine. Hold for systolic blood pressure greater than 110. Wean vasopressors.
[2023-12-23 11:52] LABS: Glucose,Whole Blood 91 mg/dL (70-110)
--- NOTE | 2023-12-23 12:14 | P.PN ---
Subjective Progress Note Date: 12/23/23 Principal diagnosis: Severe hypotension DIC, multiorgan system failure, metastatic breast cancer I am seeing this patient in consultation today 12/22/2023 on a rapid response for hypotension. She was noted to be obtunded and minimally responsive. She was transferred to the intensive care unit. 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 Of note, she did have a recent hospitalization for cholecystitis with cholecystectomy. There was a new liver lesion noted at this time, this was laparoscopically biopsied. Patient is obtunded and is a poor historian. Her is at bedside who provides information for HPI which is supplemented with the EMR. Patient was diagnosed with breast cancer September,. She had a bilateral mastectomy at [facility]. She was receiving chemotherapy/immunotherapy up until August,. Also, received radiation treatments. She was doing fairly well up until mid November. She developed episodes of intractable nausea and vomiting. There was associated abdominal pain she finally came to the emergency room 12/06/2023. She was diagnosed with acute cholecystitis and she was also noted to have a new liver lesions on imaging. On 12/09/2023 she did undergo a laparoscopic cholecystectomy along with laparoscopic liver biopsy. Pathology positive for metastatic non-small cell carcinoma consistent with high-grade ductal breast primary. Patient was initially discharged home on 12/11/2023. She did return to the emergency room on 12/13/2023 with chief complaint of increased weakness, reduced oral intake, continued nausea and vomiting, and abdominal pain. Follow- up abdominal CT showed post cholecystectomy changes with high density fluid in the pelvis around the uterus posteriorly representing blood products. No evid ence of pneumoperitoneum or organizing peripheral enhancing fluid collection suggestive of abscess. Liver lesion redemonstrated consistent with metastatic disease.. Patient did reportedly receive a dose of Taxol while inpatient on 12/15/2023. While inpatient, the patient has had small amounts of bleeding around her urinary catheter as well as gum bleeding. Labs concerning for possible DIC. Initially, APTT 45.6, INR 2, PT 20.1, fibrinogen 197, D-dimer greater than 34 . Patient did have a chest CTA which did not show any evidence of pulmonary embolism. There was trace bilateral pleural effusions. No suspicious pulmonary nodules or lymphadenopathy within the mediastinum. CBC from yesterday: WBC count 6.2, hemoglobin 11, hematocrit 35.1, platelets 10,000. Patient has received multiple blood products including 4 packs of platelets and 2 of cryo. Yesterday she also received 5 mg of vitamin K. Most recent coagulation profile includes a PT of 20.5, INR of 2, APTT of 49.7, fibrinogen of 191. Bedside nurse denies any bloody bowel movements, melena, or hematemesis. No petechiae or purpura. Mild bruising around previous laparoscopic sites. There is some gingival bleeding. Most recent CMP from yesterday: Sodium 133, potassium 5, chloride 97, serum bicarb 28, BUN 83, creatinine 1.53, glucose 74. Uric acid level was elevated at 9.2 and is down to 6. Phosphorus 4.9. AST 312, ALT 48, ALP 259. Total bilirubin is elevated 11.2. She is jaundiced. She is also obtunded and only awakens to constant stimuli.. Not making much sense. Ammonia only 18. She is receiving rectal lactulose. Brain CT done yesterday did not show any acute intracranial process. No intraparenchymal hemorrhage or mass effect. Patient's blood pressure is improving with fluid bolus. She is very edematous and third spacing. She is currently on 3 L/min nasal cannula. ABG at this time showed a PaO2 of 73, pCO2 of 35, pH of 7.49. Chest x-ray done yesterday showed low lung volumes, heart appears enlarged, possible trace left pleural effusion and patchy bibasilar opacities, possibly atelectasis. Has remained afebrile. Not currently on any antibiotic coverage. Blood cultures were negative x 2 on arrival. Infectious diseases following. patient's who is at bedside, has been updated. Was reevaluated today on 12/23/2023. Patient is becoming much worse over the last 24 hours. As a matter fact, patient developed severe hypotension requiring norepinephrine and requiring vasopressin, patient also developed atrial fibrillation with RVR requiring amiodarone and Cardizem drip yesterday, I came back to see the patient in the afternoon, she was getting more lethargic and more obtunded, hence I intubated the patient, and I was able to establish a right subclavian triple-lumen catheter because her left forearm PICC line was not enough considering the number of medications and IV fluids that the patient was receiving. I also established a right radial arterial line. Patient was placed on sedation and she has been on mechanical ventilation over the last 12 hours. And I also updated the family yesterday on her condition and her poor prognostic picture, family is very well aware of her poor prognosis, and yet to decide on comfort care measures possibly. Today the patient is on assist- control rate of 20 tidal volume 500 FiO2 50% and PEEP of 8 ABG showed a pO2 of 97 pCO2 35 pH of 7.41. Patient is almost on maximal pressors including norepinephrine at 0.4 mcg/kg/min amiodarone at 0.5 mg/min propofol at 15 mcg/kg/min also on vasopressin at 0.03 units/h. Patient has received 6 units of platelets and 2 units of cryoprecipitate her lactic acid is up to 11.9 today, bilirubin is up to 16.1, potassium is 5.8, patient was placed empirically yesterday on Zosyn, cultures were ordered, and I believe the patient is developing what seems to be a hepatorenal syndrome. WBC count today is 0.6 hemoglobin is 8.2, D-dimer is elevated, pro time and INR are elevated, PTT is elevated at 50.8. Fibrinogen is low at 207 today. BUN is up to 93 creatinine is up to 2.49, there is very marginal urine output, Lasix 80 mg IV push was given, nephrology is addressing renal replacement therapy/hemodialysis, however if family is considering comfort care measures, I believe there is no value to hemodialysis at this point. Unless that the family is undecided about comfort care measures. Liver enzymes continue to rise, her AST is 677 alkaline phosphatase is up to 177 and ALT is 138, chest x-ray is showing interval worsening and developing bilateral patchy airspace disease/opacities. There is retrocardiac density,/atelectasis and left pleural effusion. Objective - Vital Signs Vital signs: Vital Signs Temp 97.6 F 12/23/23 08:00 Pulse 78 12/23/23 11:00 Resp 21 12/23/23 11:00 BP 89/43 12/23/23 11:00 Pulse Ox 95 12/23/23 11:00 FiO2 50 12/23/23 11:28 Intake & Output 12/22/23 12/23/23 12/23/23 18:59 06:59 18:59 Intake Total 5747.050 5760.284 853.232 Output Total 140 600 40 Balance 1556.249 524.284 813.232 Weight 145 kg 145.1 kg Intake: IV 700 77 215 Piperacillin-Tazobactam 3 200 .375 gm In Sodium Chloride 0.9% 100 ml @ 25 mls/hr IVPB Q8HR KARLI Rx# :[id number] Pressure Bag 27 15 Sodium Chloride 0.9% 1, 500 50 200 000 ml @ 50 mls/hr IV . Q20H KARLI Rx#:[id number] Intake, IV Titration 719.249 814.284 638.232 Amount Norepinephrine 4 mg In 719.249 Sodium Chloride 0.9% 250 ml @ 0.03 MCG/KG/MIN 16. 299 mls/hr IV .[id number] KARLI Rx#:[id number] Norepinephrine 8 mg In 735.259 481.150 Sodium Chloride 0.9% 250 ml @ 0.22 MCG/KG/MIN 61. 727 mls/hr IV .Q4H11M KARLI Rx#:[id number] Vasopressin 60 unit In 71.604 Sodium Chloride 0.9% 150 ml @ 0.03 UNITS/MIN 4.59 mls/hr IV .Q24H KARLI Rx#: [id number] propofoL 1,000 mg In 79.025 85.478 Empty Bag 1 bag @ 15 MCG/ KG/MIN 13.05 mls/hr IV . Q7H40M KARLI Rx#:[id number] Blood Product 277 233 Platelet Pheresis Pas 277 Psoralen Unit [id number] Platelet Pheresis Pas 233 Psoralen Unit [id number] Output: Gastric Drainage 400 Urine 140 200 40 Other: Voiding Method Indwelling Catheter Indwelling Catheter Indwelling Catheter ABP, PAP, CO, CI - Last Documented Arterial Blood Pressure 103/42 - Exam GENERAL EXAM: Revealed a 43-year-old female significantly jaundiced, intubated, mechanically ventilated, not in distress. HEAD: Normocephalic and atraumatic, endotracheal tube and orogastric tube are intact. EYES: Normal reaction of pupils, equal size. Icteric sclera NOSE: Clear with pink turbinates. THROAT: No erythema or exudates. Dry mucous membranes, dried blood within the oral cavity and lips. NECK: No masses, no JVD. CHEST: No chest wall deformity. Previous bilateral mastectomy LUNGS: Crackles at the bases no rhonchi no wheezes CVS: S1 and S2 normal with soft systolic murmur, regular rhythm. No other extra heart sounds ABDOMEN: Obese abdomen, multiple laparoscopic incisions which are approximated, hypoactive bowel sounds SKIN: Jaundiced CENTRAL NERVOUS SYSTEM: Patient is sedated, unable to assess, yesterday before intubation patient was quite obtunded. EXTREMITIES: 3+ bipedal edema, no clubbing, no cyanosis, very diminished distal pulses bilaterally. - Labs CBC & Chem 7: 12/23/23 05:20 12/23/23 05:20 Labs: Abnormal Lab Results - Last 24 Hours (Table) 12/22/23 12/22/23 12/22/23 Range/Units 06:39 16:40 16:40 WBC (3.8-10.6) k/uL RBC (3.80-5.40) m/uL Hgb (11.4-16.0) gm/dL Hct (34.0-46.0) % MCHC (31.0-37.0) g/dL RDW (11.5-15.5) % Plt Count (150-450) k/uL PT (10.0-12.5) sec INR (<1.2) APTT (22.0-30.0) sec Fibrinogen (200-500) mg/dL ABG pH (7.35-7.45) ABG pO2 (83-108) mmHg ABG O2 Saturation (94-97) % Potassium 5.7 H (3.5-5.1) mmol/L Carbon Dioxide 21 L (22-30) mmol/L BUN 89 H (7-17) mg/dL Creatinine 2.19 H (0.52-1.04) mg/dL Glucose 65 L (74-99) mg/dL POC Glucose (mg/dL) (70-110) mg/dL Plasma Lactic Acid Varun 9.7 H* (0.7-2.0) mmol/L Uric Acid (3.7-7.4) mg/dL Calcium 6.3 L* (8.4-10.2) mg/dL Phosphorus (2.5-4.5) mg/dL Total Bilirubin (0.2-1.3) mg/dL Conjugated Bilirubin (0.0-0.3) mg/dL Unconjugated Bilirubin (0.0-1.1) mg/dL Delta Bilirubin (0.0-0.2) mg/dL AST (14-36) U/L ALT (4-34) U/L Alkaline Phosphatase (38-126) U/L Total Protein (6.3-8.2) g/dL Albumin (3.5-5.0) g/dL Crossmatch See Detail 12/22/23 12/22/23 12/22/23 Range/Units 17:31 18:01 18:32 WBC (3.8-10.6) k/uL RBC (3.80-5.40) m/uL Hgb (11.4-16.0) gm/dL Hct (34.0-46.0) % MCHC (31.0-37.0) g/dL RDW (11.5-15.5) % Plt Count (150-450) k/uL PT (10.0-12.5) sec INR (<1.2) APTT (22.0-30.0) sec Fibrinogen (200-500) mg/dL ABG pH (7.35-7.45) ABG pO2 (83-108) mmHg ABG O2 Saturation (94-97) % Potassium (3.5-5.1) mmol/L Carbon Dioxide (22-30) mmol/L BUN (7-17) mg/dL Creatinine (0.52-1.04) mg/dL Glucose (74-99) mg/dL POC Glucose (mg/dL) 69 L 131 H (70-110) mg/dL Plasma Lactic Acid Varun (0.7-2.0) mmol/L Uric Acid (3.7-7.4) mg/dL Calcium (8.4-10.2) mg/dL Phosphorus 7.0 H (2.5-4.5) mg/dL Total Bilirubin 11.6 H (0.2-1.3) mg/dL Conjugated Bilirubin 7.6 H (0.0-0.3) mg/dL Unconjugated Bilirubin 2.4 H (0.0-1.1) mg/dL Delta Bilirubin 1.6 H (0.0-0.2) mg/dL AST 428 H (14-36) U/L ALT 80 H (4-34) U/L Alkaline Phosphatase 161 H (38-126) U/L Total Protein 3.7 L (6.3-8.2) g/dL Albumin 1.6 L (3.5-5.0) g/dL Crossmatch 12/22/23 12/22/23 12/22/23 Range/Units 18:32 18:32 19:11 WBC 0.5 L* (3.8-10.6) k/uL RBC 2.46 L (3.80-5.40) m/uL Hgb 7.3 L D (11.4-16.0) gm/dL Hct 23.7 L (34.0-46.0) % MCHC 30.8 L (31.0-37.0) g/dL RDW 22.4 H (11.5-15.5) % Plt Count 11 L* D (150-450) k/uL PT 24.6 H (10.0-12.5) sec INR 2.5 H (<1.2) APTT 62.7 H (22.0-30.0) sec Fibrinogen 137 L (200-500) mg/dL ABG pH 7.34 L (7.35-7.45) ABG pO2 75 L (83-108) mmHg ABG O2 Saturation (94-97) % Potassium (3.5-5.1) mmol/L Carbon Dioxide (22-30) mmol/L BUN (7-17) mg/dL Creatinine (0.52-1.04) mg/dL Glucose (74-99) mg/dL POC Glucose (mg/dL) (70-110) mg/dL Plasma Lactic Acid Varun (0.7-2.0) mmol/L Uric Acid (3.7-7.4) mg/dL Calcium (8.4-10.2) mg/dL Phosphorus (2.5-4.5) mg/dL Total Bilirubin (0.2-1.3) mg/dL Conjugated Bilirubin (0.0-0.3) mg/dL Unconjugated Bilirubin (0.0-1.1) mg/dL Delta Bilirubin (0.0-0.2) mg/dL AST (14-36) U/L ALT (4-34) U/L Alkaline Phosphatase (38-126) U/L Total Protein (6.3-8.2) g/dL Albumin (3.5-5.0) g/dL Crossmatch 12/22/23 12/22/23 12/23/23 Range/Units 21:00 21:14 00:32 WBC (3.8-10.6) k/uL RBC (3.80-5.40) m/uL Hgb (11.4-16.0) gm/dL Hct (34.0-46.0) % MCHC (31.0-37.0) g/dL RDW (11.5-15.5) % Plt Count (150-450) k/uL PT (10.0-12.5) sec INR (<1.2) APTT (22.0-30.0) sec Fibrinogen (200-500) mg/dL ABG pH (7.35-7.45) ABG pO2 299 H (83-108) mmHg ABG O2 Saturation 99.7 H (94-97) % Potassium 5.7 H (3.5-5.1) mmol/L Carbon Dioxide (22-30) mmol/L BUN (7-17) mg/dL Creatinine (0.52-1.04) mg/dL Glucose (74-99) mg/dL POC Glucose (mg/dL) 119 H (70-110) mg/dL Plasma Lactic Acid Varun (0.7-2.0) mmol/L Uric Acid (3.7-7.4) mg/dL Calcium (8.4-10.2) mg/dL Phosphorus (2.5-4.5) mg/dL Total Bilirubin (0.2-1.3) mg/dL Conjugated Bilirubin (0.0-0.3) mg/dL Unconjugated Bilirubin (0.0-1.1) mg/dL Delta Bilirubin (0.0-0.2) mg/dL AST (14-36) U/L ALT (4-34) U/L Alkaline Phosphatase (38-126) U/L Total Protein (6.3-8.2) g/dL Albumin (3.5-5.0) g/dL Crossmatch 12/23/23 12/23/23 12/23/23 Range/Units 05:20 05:20 05:20 WBC (3.8-10.6) k/uL RBC (3.80-5.40) m/uL Hgb (11.4-16.0) gm/dL Hct (34.0-46.0) % MCHC (31.0-37.0) g/dL RDW (11.5-15.5) % Plt Count (150-450) k/uL PT 23.8 H (10.0-12.5) sec INR 2.4 H (<1.2) APTT 50.8 H (22.0-30.0) sec Fibrinogen (200-500) mg/dL ABG pH (7.35-7.45) ABG pO2 (83-108) mmHg ABG O2 Saturation (94-97) % Potassium 5.8 H (3.5-5.1) mmol/L Carbon Dioxide 20 L (22-30) mmol/L BUN 93 H (7-17) mg/dL Creatinine 2.49 H (0.52-1.04) mg/dL Glucose 113 H (74-99) mg/dL POC Glucose (mg/dL) (70-110) mg/dL Plasma Lactic Acid Varun 11.5 H* (0.7-2.0) mmol/L Uric Acid 7.9 H (3.7-7.4) mg/dL Calcium 6.6 L (8.4-10.2) mg/dL Phosphorus 7.7 H (2.5-4.5) mg/dL Total Bilirubin 16.1 H* (0.2-1.3) mg/dL Conjugated Bilirubin (0.0-0.3) mg/dL Unconjugated Bilirubin (0.0-1.1) mg/dL Delta Bilirubin (0.0-0.2) mg/dL AST 677 H (14-36) U/L ALT 138 H (4-34) U/L Alkaline Phosphatase 177 H (38-126) U/L Total Protein 3.9 L (6.3-8.2) g/dL Albumin 1.8 L (3.5-5.0) g/dL Crossmatch 12/23/23 12/23/23 12/23/23 Range/Units 05:20 05:30 05:58 WBC 0.6 L* (3.8-10.6) k/uL RBC 2.81 L (3.80-5.40) m/uL Hgb 8.2 L (11.4-16.0) gm/dL Hct 25.7 L (34.0-46.0) % MCHC (31.0-37.0) g/dL RDW 23.4 H (11.5-15.5) % Plt Count 9 L* (150-450) k/uL PT (10.0-12.5) sec INR (<1.2) APTT (22.0-30.0) sec Fibrinogen (200-500) mg/dL ABG pH (7.35-7.45) ABG pO2 (83-108) mmHg ABG O2 Saturation 98.4 H (94-97) % Potassium (3.5-5.1) mmol/L Carbon Dioxide (22-30) mmol/L BUN (7-17) mg/dL Creatinine (0.52-1.04) mg/dL Glucose (74-99) mg/dL POC Glucose (mg/dL) 122 H (70-110) mg/dL Plasma Lactic Acid Varun (0.7-2.0) mmol/L Uric Acid (3.7-7.4) mg/dL Calcium (8.4-10.2) mg/dL Phosphorus (2.5-4.5) mg/dL Total Bilirubin (0.2-1.3) mg/dL Conjugated Bilirubin (0.0-0.3) mg/dL Unconjugated Bilirubin (0.0-1.1) mg/dL Delta Bilirubin (0.0-0.2) mg/dL AST (14-36) U/L ALT (4-34) U/L Alkaline Phosphatase (38-126) U/L Total Protein (6.3-8.2) g/dL Albumin (3.5-5.0) g/dL Crossmatch 12/23/23 Range/Units 08:48 WBC (3.8-10.6) k/uL RBC (3.80-5.40) m/uL Hgb (11.4-16.0) gm/dL Hct (34.0-46.0) % MCHC (31.0-37.0) g/dL RDW (11.5-15.5) % Plt Count (150-450) k/uL PT (10.0-12.5) sec INR (<1.2) APTT (22.0-30.0) sec Fibrinogen (200-500) mg/dL ABG pH (7.35-7.45) ABG pO2 (83-108) mmHg ABG O2 Saturation (94-97) % Potassium (3.5-5.1) mmol/L Carbon Dioxide (22-30) mmol/L BUN (7-17) mg/dL Creatinine (0.52-1.04) mg/dL Glucose (74-99) mg/dL POC Glucose (mg/dL) (70-110) mg/dL Plasma Lactic Acid Varun 11.9 H* (0.7-2.0) mmol/L Uric Acid (3.7-7.4) mg/dL Calcium (8.4-10.2) mg/dL Phosphorus (2.5-4.5) mg/dL Total Bilirubin (0.2-1.3) mg/dL Conjugated Bilirubin (0.0-0.3) mg/dL Unconjugated Bilirubin (0.0-1.1) mg/dL Delta Bilirubin (0.0-0.2) mg/dL AST (14-36) U/L ALT (4-34) U/L Alkaline Phosphatase (38-126) U/L Total Protein (6.3-8.2) g/dL Albumin (3.5-5.0) g/dL Crossmatch Assessment and Plan Assessment: Impression: Acute hepatic encephalopathy, patient was intubated mostly for her worsening hepatic encephalopathy, obtundation, and profound hypotension, Acute disseminated intravascular coagulation Severe thrombocytopenia and pancytopenia Acute blood loss anemia Possible hepatorenal syndrome Multiorgan system failure Refractory hypotension, multifactorial, patient clearly has intravascular depletion with anasarca and possibly ascites, possibility of sepsis and septic shock is considered, but felt to be less likely. Recent history of acute cholecystitis and laparoscopic cholecystectomy on 12/09/2023. No evidence of pneumoperitoneum or organizing peripheral enhancing fluid collection to suggest abdominal abscess. Nonetheless patient remains on Zosyn. Metastatic breast cancer involving the liver History of bilateral mastectomy Lactic acidemia secondary to poor perfusion, hypotension, and secondary to significant liver disease secondary to metastatic breast cancer to the liver Atrial fibrillation with RVR, patient converted yesterday after multiple medications given she is now in sinus rhythm. History of adrenal insufficiency, patient is maintained on Cortef. Stage IV metastatic breast cancer, with liver and likely osseous metastasis, patient received 1 dose Taxol 12/15/2023. Liver mass, biopsied laparoscopically on 12/09/2023, pathology positive for metastatic non-small cell carcinoma consistent with high-grade ductal breast primary. Nuc med bone scan demonstrated multiple rib lesions as well as focal uptake involving the left ilium adjacent to the SI joint and the left femoral supracondylar region medially. Recommendation: Continue ventilatory support Continue hemodynamic support Continue GI prophylaxis Continue giving blood products including platelets, cryoprecipitate, and blood transfusion if needed considering the overall picture Nephrology is considering hemodialysis, however the patient is quite ill, may not even tolerate hemodialysis, plus the family is already considering possibly comfort care measures. Continue antibiotics Continue Solu-Cortef continue amiodarone Family was updated on her condition today, and made aware that the patient is clearly developing a multiorgan system failure. will likely consider comfort care measures. In the meantime we will continue full support, and continue present supportive care measures. Patient is critically ill, critical care time is over 30 minutes Time with Patient: Greater than 30
--- NOTE | 2023-12-23 12:56 | P.PN ---
Subjective Progress Note Date: 12/21/23 Principal diagnosis: Reason for follow-up is a leukocytosis and the question of infection Patient is a 43-year-old female with a past medical history significant for breast cancer status post bilateral mastectomy April 2023 followed by chemotherapy patient was recently admitted to this facility did have a right upper quadrant pain elevated white count and concern for cholecystitis in this patient who is status post laparoscopic cholecystectomy along with laparoscopic biopsy of the liver lesion which apparently are suggestive of metastatic breast cancer. Patient now presenting back to the hospital concerning for abdominal pain nausea and vomiting and weakness, patient did not have any fever did have elevated white count CT abdominal pelvis with polyp cholecystectomy changes and fluid in the pelvic around the uterus no evidence of pneumoperitoneum. On today's evaluation that is 12/21/2023, Patient is afebrile patient is currently on region his current oxygen patient seem to be slightly lethargic apparently the patient has been on pain medication has not been given Narcan as per discussion with admitting team has been complaining of mostly back pain no vomiting or diarrhea has been reported. Patient white count down to 6.2, creatinine is 1.53 blood culture has been negative Objective - Vital Signs Vital signs: Vital Signs Temp 97.7 F 12/21/23 14:08 Pulse 93 12/21/23 14:08 Resp 18 12/21/23 14:08 BP 138/71 12/21/23 14:08 Pulse Ox 95 12/21/23 12:14 FiO2 Intake & Output 12/20/23 12/21/23 12/21/23 18:59 06:59 18:59 Intake Total 259 1460 345 Output Total 900 1500 Balance -641 -40 345 Weight 142.6 kg Intake: Intake, IV Titration 900 Amount Dextrose 5% in Water 1, 900 000 ml @ 75 mls/hr IV . [id number] [facility]LI with Sodium Bicarb (1 Meq/ml) 150 ml Rx#:[id number] Oral 560 Blood Product 259 345 Platelet Pheresis Pas 345 Psoralen Unit [id number] Platelet Pheresis Pas 259 Psoralen Unit [id number] Output: Urine 900 1500 Emesis 0 Other: Voiding Method Indwelling Catheter Indwelling Catheter Indwelling Catheter # Bowel Movements 0 - Exam GENERAL DESCRIPTION: Middle-aged female lying in bed in no distress RESPIRATORY SYSTEM: Unlabored breathing , decreased breath sounds at bases HEART: S1 S2 regular rate and rhythm , ABDOMEN: Soft , no tenderness EXTREMITIES: No edema feet - Labs CBC & Chem 7: 12/23/23 05:20 12/23/23 05:20 Labs: Abnormal Lab Results - Last 24 Hours (Table) 12/20/23 12/21/23 12/21/23 Range/Units 20:30 06:10 06:10 RBC 3.75 L (3.80-5.40) m/uL Hgb 11.0 L (11.4-16.0) gm/dL RDW 22.1 H (11.5-15.5) % Plt Count 10 L* (150-450) k/uL Lymphocytes # 0.5 L (1.0-4.8) k/uL PT 19.1 H (10.0-12.5) sec INR 1.9 H (<1.2) APTT 44.4 H (22.0-30.0) sec Sodium 133 L (137-145) mmol/L Chloride 97 L (98-107) mmol/L BUN 83 H (7-17) mg/dL Creatinine 1.53 H (0.52-1.04) mg/dL Glucose 135 H (74-99) mg/dL Calcium 6.6 L (8.4-10.2) mg/dL Phosphorus 4.9 H (2.5-4.5) mg/dL Magnesium 2.5 H (1.6-2.3) mg/dL Total Bilirubin 11.2 H (0.2-1.3) mg/dL AST 312 H (14-36) U/L ALT 48 H (4-34) U/L Alkaline Phosphatase 259 H (38-126) U/L Total Protein 4.4 L (6.3-8.2) g/dL Albumin 1.7 L (3.5-5.0) g/dL 12/21/23 Range/Units 06:10 RBC (3.80-5.40) m/uL Hgb (11.4-16.0) gm/dL RDW (11.5-15.5) % Plt Count (150-450) k/uL Lymphocytes # (1.0-4.8) k/uL PT 19.7 H (10.0-12.5) sec INR 2.0 H (<1.2) APTT 49.1 H (22.0-30.0) sec Sodium (137-145) mmol/L Chloride (98-107) mmol/L BUN (7-17) mg/dL Creatinine (0.52-1.04) mg/dL Glucose (74-99) mg/dL Calcium (8.4-10.2) mg/dL Phosphorus (2.5-4.5) mg/dL Magnesium (1.6-2.3) mg/dL Total Bilirubin (0.2-1.3) mg/dL AST (14-36) U/L ALT (4-34) U/L Alkaline Phosphatase (38-126) U/L Total Protein (6.3-8.2) g/dL Albumin (3.5-5.0) g/dL Assessment and Plan (1) Leukocytosis Current Visit: No Status: Acute Code(s): D72.829 - ELEVATED WHITE BLOOD CELL COUNT, UNSPECIFIED SNOMED Code(s): 622540730 Plan: 1patient presented hospital with abdominal pain nausea and vomiting in this patient who did have a history of metastatic breast cancer with recent laparoscopic cholecystectomy as well as laparoscopic biopsy of the liver lesion now with abnormal CT abdominal pelvis concerning for fluid in the lower pelvis, patient case has been discussed in detail with the general surgery no clinically suspicious for biliary leak or need for HIDA scan also discussed with Dr. Caballero from hematology oncology this morning and is assessment is presentation is mostly of metastatic breast cancer, patient did not have any fever during this admission patient antibiotic has been discontinued as of 12/16/2023 2-patient remains to be afebrile, the patient white count has normalized and the culture has been negative seem to have issues with the pain and being managed by admitting team as well as suspected DIC being managed by hematology oncology will monitor the patient closely off antibiotic therapy Dictation was produced using [employer] dictation software. please excuse any grammatical, word or spelling errors. Time with Patient: Less than 30
--- NOTE | 2023-12-23 13:00 | P.PN ---
Subjective Progress Note Date: 12/22/23 Principal diagnosis: Reason for follow-up is a leukocytosis and the question of infection Patient is a 43-year-old female with a past medical history significant for breast cancer status post bilateral mastectomy April 2023 followed by chemotherapy patient was recently admitted to this facility did have a right upper quadrant pain elevated white count and concern for cholecystitis in this patient who is status post laparoscopic cholecystectomy along with laparoscopic biopsy of the liver lesion which apparently are suggestive of metastatic breast cancer. Patient now presenting back to the hospital concerning for abdominal pain nausea and vomiting and weakness, patient did not have any fever did have elevated white count CT abdominal pelvis with polyp cholecystectomy changes and fluid in the pelvic around the uterus no evidence of pneumoperitoneum. On today's evaluation that is 12/22/2023, patient has been afebrile, patient did have significant change in her clinical condition become lethargic hypotensive and has been transferred to the intensive care unit patient is currently on a pressor support she is on 3 L nasal cannula oxygen patient remains to be lethargic and cannot provide any history no vomiting or diarrhea reported by the nursing staff. The patient white count is 0.5 creatinine is 2.19 Objective - Vital Signs Vital signs: Vital Signs Temp 97.7 F 12/22/23 08:00 Pulse 93 12/22/23 10:00 Resp 20 12/22/23 10:00 BP 92/47 12/22/23 10:00 Pulse Ox 96 12/22/23 10:00 FiO2 Intake & Output 12/21/23 12/22/23 12/22/23 18:59 06:59 18:59 Intake Total 345 116.842 173.905 Output Total 975 155 90 Balance -630 -38.158 83.905 Weight 145 kg Intake: IV 100 150 Sodium Chloride 0.9% 1, 100 150 000 ml @ 50 mls/hr IV . Q20H [facility] Rx#:[id number] Intake, IV Titration 16.842 23.905 Amount Norepinephrine 4 mg In 16.842 23.905 Sodium Chloride 0.9% 250 ml @ 0.03 MCG/KG/MIN 16. 299 mls/hr IV .[id number] [facility] Rx#:[id number] Blood Product 345 Platelet Pheresis Pas 345 Psoralen Unit [id number] Output: Urine 975 155 90 Other: Voiding Method Indwelling Catheter Indwelling Catheter - Exam GENERAL DESCRIPTION: Middle-aged female lying in bed in no distress RESPIRATORY SYSTEM: Unlabored breathing , decreased breath sounds at bases HEART: S1 S2 regular rate and rhythm , ABDOMEN: Mild distention and tenderness EXTREMITIES: No edema feet - Labs CBC & Chem 7: 12/23/23 05:20 12/23/23 05:20 Labs: Abnormal Lab Results - Last 24 Hours (Table) 12/22/23 12/22/23 12/22/23 Range/Units 03:54 04:18 04:18 WBC (3.8-10.6) k/uL RBC (3.80-5.40) m/uL Hgb (11.4-16.0) gm/dL Hct (34.0-46.0) % RDW (11.5-15.5) % Plt Count (150-450) k/uL Neutrophils # (Manual) (1.3-7.7) k/uL Lymphocytes # (Manual) (1.0-4.8) k/uL PT (10.0-12.5) sec INR (<1.2) APTT (22.0-30.0) sec Fibrinogen (200-500) mg/dL ABG pH 7.49 H (7.35-7.45) ABG pO2 73 L (83-108) mmHg ABG HCO3 26 H (21-25) mmol/L ABG Total CO2 27 H (19-24) mmol/L Sodium (137-145) mmol/L Potassium (3.5-5.1) mmol/L BUN (7-17) mg/dL Creatinine (0.52-1.04) mg/dL Glucose (74-99) mg/dL POC Glucose (mg/dL) 112 H 118 H (70-110) mg/dL Plasma Lactic Acid Varun (0.7-2.0) mmol/L Calcium (8.4-10.2) mg/dL Phosphorus (2.5-4.5) mg/dL Magnesium (1.6-2.3) mg/dL Total Bilirubin (0.2-1.3) mg/dL AST (14-36) U/L ALT (4-34) U/L Alkaline Phosphatase (38-126) U/L Total Protein (6.3-8.2) g/dL Albumin (3.5-5.0) g/dL 12/22/23 12/22/23 12/22/23 Range/Units 04:22 04:22 04:22 WBC 1.0 L* (3.8-10.6) k/uL RBC 3.21 L (3.80-5.40) m/uL Hgb 9.6 L (11.4-16.0) gm/dL Hct 30.3 L (34.0-46.0) % RDW 22.1 H (11.5-15.5) % Plt Count 6 L* (150-450) k/uL Neutrophils # (Manual) 0.61 L (1.3-7.7) k/uL Lymphocytes # (Manual) 0.37 L (1.0-4.8) k/uL PT 20.5 H (10.0-12.5) sec INR 2.0 H (<1.2) APTT 49.7 H (22.0-30.0) sec Fibrinogen 191 L (200-500) mg/dL ABG pH (7.35-7.45) ABG pO2 (83-108) mmHg ABG HCO3 (21-25) mmol/L ABG Total CO2 (19-24) mmol/L Sodium 136 L (137-145) mmol/L Potassium 5.5 H (3.5-5.1) mmol/L BUN 87 H (7-17) mg/dL Creatinine 1.78 H (0.52-1.04) mg/dL Glucose 113 H (74-99) mg/dL POC Glucose (mg/dL) (70-110) mg/dL Plasma Lactic Acid Varun (0.7-2.0) mmol/L Calcium 6.5 L (8.4-10.2) mg/dL Phosphorus 5.8 H (2.5-4.5) mg/dL Magnesium 2.6 H (1.6-2.3) mg/dL Total Bilirubin 12.3 H (0.2-1.3) mg/dL AST 408 H (14-36) U/L ALT 71 H (4-34) U/L Alkaline Phosphatase 235 H (38-126) U/L Total Protein 3.9 L (6.3-8.2) g/dL Albumin 1.5 L (3.5-5.0) g/dL 12/22/23 Range/Units 04:22 WBC (3.8-10.6) k/uL RBC (3.80-5.40) m/uL Hgb (11.4-16.0) gm/dL Hct (34.0-46.0) % RDW (11.5-15.5) % Plt Count (150-450) k/uL Neutrophils # (Manual) (1.3-7.7) k/uL Lymphocytes # (Manual) (1.0-4.8) k/uL PT (10.0-12.5) sec INR (<1.2) APTT (22.0-30.0) sec Fibrinogen (200-500) mg/dL ABG pH (7.35-7.45) ABG pO2 (83-108) mmHg ABG HCO3 (21-25) mmol/L ABG Total CO2 (19-24) mmol/L Sodium (137-145) mmol/L Potassium (3.5-5.1) mmol/L BUN (7-17) mg/dL Creatinine (0.52-1.04) mg/dL Glucose (74-99) mg/dL POC Glucose (mg/dL) (70-110) mg/dL Plasma Lactic Acid Varun 7.8 H* (0.7-2.0) mmol/L Calcium (8.4-10.2) mg/dL Phosphorus (2.5-4.5) mg/dL Magnesium (1.6-2.3) mg/dL Total Bilirubin (0.2-1.3) mg/dL AST (14-36) U/L ALT (4-34) U/L Alkaline Phosphatase (38-126) U/L Total Protein (6.3-8.2) g/dL Albumin (3.5-5.0) g/dL Assessment and Plan (1) SIRS (systemic inflammatory response syndrome) Current Visit: Yes Status: Acute Code(s): R65.10 - SIRS OF NON-INFECTIOUS ORIGIN W/O ACUTE ORGAN DYSFUNCTION SNOMED Code(s): 363869903 (2) Leukopenia Current Visit: Yes Status: Acute Code(s): D72.819 - DECREASED WHITE BLOOD CELL COUNT, UNSPECIFIED SNOMED Code(s): 44414129 Plan: 1patient did have significant change in her clinical condition requiring transfer to the ICU and has been on pressor support patient not running any fever we will go ahead obtain blood cultures check inflammatory markers patient has been empirically started on Zosyn to continue while waiting for the culture to finalize prognosis remains to be guarded Dictation was produced using [employer] dictation software. please excuse any grammatical, word or spelling errors. Time with Patient: Less than 30
--- NOTE | 2023-12-23 13:01 | P.PN ---
Subjective Progress Note Date: 12/23/23 Principal diagnosis: Reason for follow-up is a leukocytosis and the question of infection Patient is a 43-year-old female with a past medical history significant for breast cancer status post bilateral mastectomy April 2023 followed by chemotherapy patient was recently admitted to this facility did have a right upper quadrant pain elevated white count and concern for cholecystitis in this patient who is status post laparoscopic cholecystectomy along with laparoscopic biopsy of the liver lesion which apparently are suggestive of metastatic breast cancer. Patient now presenting back to the hospital concerning for abdominal pain nausea and vomiting and weakness, patient did not have any fever did have elevated white count CT abdominal pelvis with polyp cholecystectomy changes and fluid in the pelvic around the uterus no evidence of pneumoperitoneum. On today's evaluation that is 12/23/2023,the patient remains to be afebrile the patient did have worsening of respiratory status requiring intubation patient is also on significant pressor support to maintain her blood pressure patient is currently on 50% FiO2 no diarrhea any other changes reported by nursing staff. Patient white count is 0.6 platelet count is 9 creatinine is 2.49 lactic acid of 11.9 blood culture repeat yesterday currently pending Objective - Vital Signs Vital signs: Vital Signs Temp 97.6 F 12/23/23 08:00 Pulse 78 12/23/23 11:00 Resp 21 12/23/23 11:00 BP 89/43 12/23/23 11:00 Pulse Ox 95 12/23/23 11:00 FiO2 50 12/23/23 08:00 Intake & Output 12/22/23 12/23/23 12/23/23 18:59 06:59 18:59 Intake Total 0638.818 3190.284 644.250 Output Total 140 600 40 Balance 1556.249 524.284 604.250 Weight 145 kg 145.1 kg Intake: IV 700 77 215 Piperacillin-Tazobactam 3 200 .375 gm In Sodium Chloride 0.9% 100 ml @ 25 mls/hr IVPB Q8HR [facility] Rx# :[id number] Pressure Bag 27 15 Sodium Chloride 0.9% 1, 500 50 200 000 ml @ 50 mls/hr IV . Q20H [facility] Rx#:[id number] Intake, IV Titration 719.249 814.284 429.250 Amount Norepinephrine 4 mg In 719.249 Sodium Chloride 0.9% 250 ml @ 0.03 MCG/KG/MIN 16. 299 mls/hr IV .[id number] [facility] Rx#:[id number] Norepinephrine 8 mg In 735.259 272.168 Sodium Chloride 0.9% 250 ml @ 0.22 MCG/KG/MIN 61. 727 mls/hr IV .Q4H11M [facility] Rx#:[id number] Vasopressin 60 unit In 71.604 Sodium Chloride 0.9% 150 ml @ 0.03 UNITS/MIN 4.59 mls/hr IV .Q24H [facility] Rx#: [id number] propofoL 1,000 mg In 79.025 85.478 Empty Bag 1 bag @ 15 MCG/ KG/MIN 13.05 mls/hr IV . Q7H40M [facility] Rx#:[id number] Blood Product 277 233 Platelet Pheresis Pas 277 Psoralen Unit [id number] Platelet Pheresis Pas 233 Psoralen Unit [id number] Output: Gastric Drainage 400 Urine 140 200 40 Other: Voiding Method Indwelling Catheter Indwelling Catheter Indwelling Catheter ABP, PAP, CO, CI - Last Documented Arterial Blood Pressure 103/42 - Exam GENERAL DESCRIPTION: Middle-aged female intubated on the vent RESPIRATORY SYSTEM: Unlabored breathing , decreased breath sounds at bases HEART: S1 S2 regular rate and rhythm , ABDOMEN: Mild distention and tenderness EXTREMITIES: No edema feet - Labs CBC & Chem 7: 12/23/23 05:20 12/23/23 05:20 Labs: Abnormal Lab Results - Last 24 Hours (Table) 12/22/23 12/22/23 12/22/23 Range/Units 06:39 16:40 16:40 WBC (3.8-10.6) k/uL RBC (3.80-5.40) m/uL Hgb (11.4-16.0) gm/dL Hct (34.0-46.0) % MCHC (31.0-37.0) g/dL RDW (11.5-15.5) % Plt Count (150-450) k/uL PT (10.0-12.5) sec INR (<1.2) APTT (22.0-30.0) sec Fibrinogen (200-500) mg/dL ABG pH (7.35-7.45) ABG pO2 (83-108) mmHg ABG O2 Saturation (94-97) % Potassium 5.7 H (3.5-5.1) mmol/L Carbon Dioxide 21 L (22-30) mmol/L BUN 89 H (7-17) mg/dL Creatinine 2.19 H (0.52-1.04) mg/dL Glucose 65 L (74-99) mg/dL POC Glucose (mg/dL) (70-110) mg/dL Plasma Lactic Acid Varun 9.7 H* (0.7-2.0) mmol/L Uric Acid (3.7-7.4) mg/dL Calcium 6.3 L* (8.4-10.2) mg/dL Phosphorus (2.5-4.5) mg/dL Total Bilirubin (0.2-1.3) mg/dL Conjugated Bilirubin (0.0-0.3) mg/dL Unconjugated Bilirubin (0.0-1.1) mg/dL Delta Bilirubin (0.0-0.2) mg/dL AST (14-36) U/L ALT (4-34) U/L Alkaline Phosphatase (38-126) U/L Total Protein (6.3-8.2) g/dL Albumin (3.5-5.0) g/dL Crossmatch See Detail 12/22/23 12/22/23 12/22/23 Range/Units 17:31 18:01 18:32 WBC (3.8-10.6) k/uL RBC (3.80-5.40) m/uL Hgb (11.4-16.0) gm/dL Hct (34.0-46.0) % MCHC (31.0-37.0) g/dL RDW (11.5-15.5) % Plt Count (150-450) k/uL PT (10.0-12.5) sec INR (<1.2) APTT (22.0-30.0) sec Fibrinogen (200-500) mg/dL ABG pH (7.35-7.45) ABG pO2 (83-108) mmHg ABG O2 Saturation (94-97) % Potassium (3.5-5.1) mmol/L Carbon Dioxide (22-30) mmol/L BUN (7-17) mg/dL Creatinine (0.52-1.04) mg/dL Glucose (74-99) mg/dL POC Glucose (mg/dL) 69 L 131 H (70-110) mg/dL Plasma Lactic Acid Varun (0.7-2.0) mmol/L Uric Acid (3.7-7.4) mg/dL Calcium (8.4-10.2) mg/dL Phosphorus 7.0 H (2.5-4.5) mg/dL Total Bilirubin 11.6 H (0.2-1.3) mg/dL Conjugated Bilirubin 7.6 H (0.0-0.3) mg/dL Unconjugated Bilirubin 2.4 H (0.0-1.1) mg/dL Delta Bilirubin 1.6 H (0.0-0.2) mg/dL AST 428 H (14-36) U/L ALT 80 H (4-34) U/L Alkaline Phosphatase 161 H (38-126) U/L Total Protein 3.7 L (6.3-8.2) g/dL Albumin 1.6 L (3.5-5.0) g/dL Crossmatch 12/22/23 12/22/23 12/22/23 Range/Units 18:32 18:32 19:11 WBC 0.5 L* (3.8-10.6) k/uL RBC 2.46 L (3.80-5.40) m/uL Hgb 7.3 L D (11.4-16.0) gm/dL Hct 23.7 L (34.0-46.0) % MCHC 30.8 L (31.0-37.0) g/dL RDW 22.4 H (11.5-15.5) % Plt Count 11 L* D (150-450) k/uL PT 24.6 H (10.0-12.5) sec INR 2.5 H (<1.2) APTT 62.7 H (22.0-30.0) sec Fibrinogen 137 L (200-500) mg/dL ABG pH 7.34 L (7.35-7.45) ABG pO2 75 L (83-108) mmHg ABG O2 Saturation (94-97) % Potassium (3.5-5.1) mmol/L Carbon Dioxide (22-30) mmol/L BUN (7-17) mg/dL Creatinine (0.52-1.04) mg/dL Glucose (74-99) mg/dL POC Glucose (mg/dL) (70-110) mg/dL Plasma Lactic Acid Varun (0.7-2.0) mmol/L Uric Acid (3.7-7.4) mg/dL Calcium (8.4-10.2) mg/dL Phosphorus (2.5-4.5) mg/dL Total Bilirubin (0.2-1.3) mg/dL Conjugated Bilirubin (0.0-0.3) mg/dL Unconjugated Bilirubin (0.0-1.1) mg/dL Delta Bilirubin (0.0-0.2) mg/dL AST (14-36) U/L ALT (4-34) U/L Alkaline Phosphatase (38-126) U/L Total Protein (6.3-8.2) g/dL Albumin (3.5-5.0) g/dL Crossmatch 12/22/23 12/22/23 12/23/23 Range/Units 21:00 21:14 00:32 WBC (3.8-10.6) k/uL RBC (3.80-5.40) m/uL Hgb (11.4-16.0) gm/dL Hct (34.0-46.0) % MCHC (31.0-37.0) g/dL RDW (11.5-15.5) % Plt Count (150-450) k/uL PT (10.0-12.5) sec INR (<1.2) APTT (22.0-30.0) sec Fibrinogen (200-500) mg/dL ABG pH (7.35-7.45) ABG pO2 299 H (83-108) mmHg ABG O2 Saturation 99.7 H (94-97) % Potassium 5.7 H (3.5-5.1) mmol/L Carbon Dioxide (22-30) mmol/L BUN (7-17) mg/dL Creatinine (0.52-1.04) mg/dL Glucose (74-99) mg/dL POC Glucose (mg/dL) 119 H (70-110) mg/dL Plasma Lactic Acid Varun (0.7-2.0) mmol/L Uric Acid (3.7-7.4) mg/dL Calcium (8.4-10.2) mg/dL Phosphorus (2.5-4.5) mg/dL Total Bilirubin (0.2-1.3) mg/dL Conjugated Bilirubin (0.0-0.3) mg/dL Unconjugated Bilirubin (0.0-1.1) mg/dL Delta Bilirubin (0.0-0.2) mg/dL AST (14-36) U/L ALT (4-34) U/L Alkaline Phosphatase (38-126) U/L Total Protein (6.3-8.2) g/dL Albumin (3.5-5.0) g/dL Crossmatch 12/23/23 12/23/23 12/23/23 Range/Units 05:20 05:20 05:20 WBC (3.8-10.6) k/uL RBC (3.80-5.40) m/uL Hgb (11.4-16.0) gm/dL Hct (34.0-46.0) % MCHC (31.0-37.0) g/dL RDW (11.5-15.5) % Plt Count (150-450) k/uL PT 23.8 H (10.0-12.5) sec INR 2.4 H (<1.2) APTT 50.8 H (22.0-30.0) sec Fibrinogen (200-500) mg/dL ABG pH (7.35-7.45) ABG pO2 (83-108) mmHg ABG O2 Saturation (94-97) % Potassium 5.8 H (3.5-5.1) mmol/L Carbon Dioxide 20 L (22-30) mmol/L BUN 93 H (7-17) mg/dL Creatinine 2.49 H (0.52-1.04) mg/dL Glucose 113 H (74-99) mg/dL POC Glucose (mg/dL) (70-110) mg/dL Plasma Lactic Acid Varun 11.5 H* (0.7-2.0) mmol/L Uric Acid 7.9 H (3.7-7.4) mg/dL Calcium 6.6 L (8.4-10.2) mg/dL Phosphorus 7.7 H (2.5-4.5) mg/dL Total Bilirubin 16.1 H* (0.2-1.3) mg/dL Conjugated Bilirubin (0.0-0.3) mg/dL Unconjugated Bilirubin (0.0-1.1) mg/dL Delta Bilirubin (0.0-0.2) mg/dL AST 677 H (14-36) U/L ALT 138 H (4-34) U/L Alkaline Phosphatase 177 H (38-126) U/L Total Protein 3.9 L (6.3-8.2) g/dL Albumin 1.8 L (3.5-5.0) g/dL Crossmatch 12/23/23 12/23/23 12/23/23 Range/Units 05:20 05:30 05:58 WBC 0.6 L* (3.8-10.6) k/uL RBC 2.81 L (3.80-5.40) m/uL Hgb 8.2 L (11.4-16.0) gm/dL Hct 25.7 L (34.0-46.0) % MCHC (31.0-37.0) g/dL RDW 23.4 H (11.5-15.5) % Plt Count 9 L* (150-450) k/uL PT (10.0-12.5) sec INR (<1.2) APTT (22.0-30.0) sec Fibrinogen (200-500) mg/dL ABG pH (7.35-7.45) ABG pO2 (83-108) mmHg ABG O2 Saturation 98.4 H (94-97) % Potassium (3.5-5.1) mmol/L Carbon Dioxide (22-30) mmol/L BUN (7-17) mg/dL Creatinine (0.52-1.04) mg/dL Glucose (74-99) mg/dL POC Glucose (mg/dL) 122 H (70-110) mg/dL Plasma Lactic Acid Varun (0.7-2.0) mmol/L Uric Acid (3.7-7.4) mg/dL Calcium (8.4-10.2) mg/dL Phosphorus (2.5-4.5) mg/dL Total Bilirubin (0.2-1.3) mg/dL Conjugated Bilirubin (0.0-0.3) mg/dL Unconjugated Bilirubin (0.0-1.1) mg/dL Delta Bilirubin (0.0-0.2) mg/dL AST (14-36) U/L ALT (4-34) U/L Alkaline Phosphatase (38-126) U/L Total Protein (6.3-8.2) g/dL Albumin (3.5-5.0) g/dL Crossmatch 12/23/23 Range/Units 08:48 WBC (3.8-10.6) k/uL RBC (3.80-5.40) m/uL Hgb (11.4-16.0) gm/dL Hct (34.0-46.0) % MCHC (31.0-37.0) g/dL RDW (11.5-15.5) % Plt Count (150-450) k/uL PT (10.0-12.5) sec INR (<1.2) APTT (22.0-30.0) sec Fibrinogen (200-500) mg/dL ABG pH (7.35-7.45) ABG pO2 (83-108) mmHg ABG O2 Saturation (94-97) % Potassium (3.5-5.1) mmol/L Carbon Dioxide (22-30) mmol/L BUN (7-17) mg/dL Creatinine (0.52-1.04) mg/dL Glucose (74-99) mg/dL POC Glucose (mg/dL) (70-110) mg/dL Plasma Lactic Acid Varun 11.9 H* (0.7-2.0) mmol/L Uric Acid (3.7-7.4) mg/dL Calcium (8.4-10.2) mg/dL Phosphorus (2.5-4.5) mg/dL Total Bilirubin (0.2-1.3) mg/dL Conjugated Bilirubin (0.0-0.3) mg/dL Unconjugated Bilirubin (0.0-1.1) mg/dL Delta Bilirubin (0.0-0.2) mg/dL AST (14-36) U/L ALT (4-34) U/L Alkaline Phosphatase (38-126) U/L Total Protein (6.3-8.2) g/dL Albumin (3.5-5.0) g/dL Crossmatch Assessment and Plan (1) Leukopenia Current Visit: Yes Status: Acute Code(s): D72.819 - DECREASED WHITE BLOOD CELL COUNT, UNSPECIFIED SNOMED Code(s): 81882379 (2) SIRS (systemic inflammatory response syndrome) Current Visit: No Status: Acute Code(s): R65.10 - SIRS OF NON-INFECTIOUS ORIGIN W/O ACUTE ORGAN DYSFUNCTION SNOMED Code(s): 103393526 Plan: 1patient did have significant change in her clinical condition requiring transfer to the ICU and has been on pressor support patient also required intubation last evening because of worsening respiratory status overall prognosis remains to be guarded because of multiple organ failure culture obtained yesterday pending sputum culture has been requested continue with empiric Zosyn for now family is considering possible comfort oriented care which may be appropriate for her discussed with the and the nursing staff Dictation was produced using [employer] dictation software. please excuse any grammatical, word or spelling errors. Time with Patient: Less than 30
[2023-12-23 13:39] VITALS: PULSE 84; RESP 17; BMI 43.4
[2023-12-23] MEDS ORDERED: ATROPINE OPHTH SOLN 1% 5ML BTL SUBLINGUAL PRN (14:04)
[2023-12-23] MEDS ORDERED: ARTIFICIAL TEARS-HYPROMELLOSE DROPS 15 ML BTL BOTH EYES PRN (14:04)
[2023-12-23] MEDS ORDERED: SCOPOLAMINE 1 MG/72 HR PATCH TRANSDERM SCH (14:30)
[2023-12-23] MEDS: LORazepam 1 MG/0.5 ML VIAL IV PRN (14:38)
[2023-12-23] MEDS: MORPHINE SULFATE 4 MG/ML SYRINGE IV PRN (14:38)
--- NOTE | 2023-12-23 15:10 | P.PN ---
Subjective Progress Note Date: 12/22/23 The patient was seen in the ICU. She was very lethargic, but still arousable. She was able to answer simple questions intermittently but would then follow back to sleep. Case discussed with nursing in detail. No major bleeding, other than smoking from the oral cavity and nose. Oral intake is minimal. She is markedly jaundiced Objective - Vital Signs Vital signs: Vital Signs Temp 97.6 F 12/23/23 12:00 Pulse 84 12/23/23 13:00 Resp 17 12/23/23 13:00 BP 89/43 12/23/23 13:00 Pulse Ox 97 12/23/23 13:00 FiO2 50 12/23/23 12:00 Intake & Output 12/22/23 12/23/23 12/23/23 18:59 06:59 18:59 Intake Total 5134.129 0349.284 959.232 Output Total 140 600 50 Balance 1556.249 524.284 909.232 Weight 145 kg 145.1 kg 145.1 kg Intake: IV 700 77 321 Piperacillin-Tazobactam 3 200 .375 gm In Sodium Chloride 0.9% 100 ml @ 25 mls/hr IVPB Q8HR [facility] Rx# :[id number] Pressure Bag 27 21 Sodium Chloride 0.9% 1, 500 50 300 000 ml @ 50 mls/hr IV . Q20H [facility] Rx#:[id number] Intake, IV Titration 719.249 814.284 638.232 Amount Norepinephrine 4 mg In 719.249 Sodium Chloride 0.9% 250 ml @ 0.03 MCG/KG/MIN 16. 299 mls/hr IV .[id number] [facility] Rx#:[id number] Norepinephrine 8 mg In 735.259 481.150 Sodium Chloride 0.9% 250 ml @ 0.22 MCG/KG/MIN 61. 727 mls/hr IV .Q4H11M [facility] Rx#:[id number] Vasopressin 60 unit In 71.604 Sodium Chloride 0.9% 150 ml @ 0.03 UNITS/MIN 4.59 mls/hr IV .Q24H [facility] Rx#: [id number] propofoL 1,000 mg In 79.025 85.478 Empty Bag 1 bag @ 15 MCG/ KG/MIN 13.05 mls/hr IV . Q7H40M [facility] Rx#:[id number] Blood Product 277 233 Platelet Pheresis Pas 277 Psoralen Unit [id number] Platelet Pheresis Pas 233 Psoralen Unit [id number] Output: Gastric Drainage 400 Urine 140 200 50 Other: Voiding Method Indwelling Catheter Indwelling Catheter Indwelling Catheter ABP, PAP, CO, CI - Last Documented Arterial Blood Pressure 106/42 - Constitutional General appearance: Present: mild distress - EENT Eyes: Present: EOMI, scleral icterus ENT: Present: hearing grossly normal - Respiratory Respiratory: bilateral: diminished - Cardiovascular Rhythm: regular Heart sounds: normal: S1, S2 - Gastrointestinal General gastrointestinal: Present: decreased bowel sounds, soft Localized gastrointestinal: tender: RUQ - Integumentary Integumentary: Present: jaundiced - Neurologic Neurologic: Present: CNII-XII intact - Musculoskeletal Musculoskeletal: Present: generalized weakness, strength equal bilaterally - Psychiatric Psychiatric Comment(s): Mental status as noted above - Labs CBC & Chem 7: 12/23/23 05:20 12/23/23 05:20 Labs: Abnormal Lab Results - Last 24 Hours (Table) 12/22/23 12/22/23 12/22/23 Range/Units 06:39 16:40 16:40 WBC (3.8-10.6) k/uL RBC (3.80-5.40) m/uL Hgb (11.4-16.0) gm/dL Hct (34.0-46.0) % MCHC (31.0-37.0) g/dL RDW (11.5-15.5) % Plt Count (150-450) k/uL PT (10.0-12.5) sec INR (<1.2) APTT (22.0-30.0) sec Fibrinogen (200-500) mg/dL ABG pH (7.35-7.45) ABG pO2 (83-108) mmHg ABG O2 Saturation (94-97) % Potassium 5.7 H (3.5-5.1) mmol/L Carbon Dioxide 21 L (22-30) mmol/L BUN 89 H (7-17) mg/dL Creatinine 2.19 H (0.52-1.04) mg/dL Glucose 65 L (74-99) mg/dL POC Glucose (mg/dL) (70-110) mg/dL Plasma Lactic Acid Varun 9.7 H* (0.7-2.0) mmol/L Uric Acid (3.7-7.4) mg/dL Calcium 6.3 L* (8.4-10.2) mg/dL Phosphorus (2.5-4.5) mg/dL Total Bilirubin (0.2-1.3) mg/dL Conjugated Bilirubin (0.0-0.3) mg/dL Unconjugated Bilirubin (0.0-1.1) mg/dL Delta Bilirubin (0.0-0.2) mg/dL AST (14-36) U/L ALT (4-34) U/L Alkaline Phosphatase (38-126) U/L Total Protein (6.3-8.2) g/dL Albumin (3.5-5.0) g/dL Crossmatch See Detail 12/22/23 12/22/23 12/22/23 Range/Units 17:31 18:01 18:32 WBC (3.8-10.6) k/uL RBC (3.80-5.40) m/uL Hgb (11.4-16.0) gm/dL Hct (34.0-46.0) % MCHC (31.0-37.0) g/dL RDW (11.5-15.5) % Plt Count (150-450) k/uL PT (10.0-12.5) sec INR (<1.2) APTT (22.0-30.0) sec Fibrinogen (200-500) mg/dL ABG pH (7.35-7.45) ABG pO2 (83-108) mmHg ABG O2 Saturation (94-97) % Potassium (3.5-5.1) mmol/L Carbon Dioxide (22-30) mmol/L BUN (7-17) mg/dL Creatinine (0.52-1.04) mg/dL Glucose (74-99) mg/dL POC Glucose (mg/dL) 69 L 131 H (70-110) mg/dL Plasma Lactic Acid Varun (0.7-2.0) mmol/L Uric Acid (3.7-7.4) mg/dL Calcium (8.4-10.2) mg/dL Phosphorus 7.0 H (2.5-4.5) mg/dL Total Bilirubin 11.6 H (0.2-1.3) mg/dL Conjugated Bilirubin 7.6 H (0.0-0.3) mg/dL Unconjugated Bilirubin 2.4 H (0.0-1.1) mg/dL Delta Bilirubin 1.6 H (0.0-0.2) mg/dL AST 428 H (14-36) U/L ALT 80 H (4-34) U/L Alkaline Phosphatase 161 H (38-126) U/L Total Protein 3.7 L (6.3-8.2) g/dL Albumin 1.6 L (3.5-5.0) g/dL Crossmatch 12/22/23 12/22/23 12/22/23 Range/Units 18:32 18:32 19:11 WBC 0.5 L* (3.8-10.6) k/uL RBC 2.46 L (3.80-5.40) m/uL Hgb 7.3 L D (11.4-16.0) gm/dL Hct 23.7 L (34.0-46.0) % MCHC 30.8 L (31.0-37.0) g/dL RDW 22.4 H (11.5-15.5) % Plt Count 11 L* D (150-450) k/uL PT 24.6 H (10.0-12.5) sec INR 2.5 H (<1.2) APTT 62.7 H (22.0-30.0) sec Fibrinogen 137 L (200-500) mg/dL ABG pH 7.34 L (7.35-7.45) ABG pO2 75 L (83-108) mmHg ABG O2 Saturation (94-97) % Potassium (3.5-5.1) mmol/L Carbon Dioxide (22-30) mmol/L BUN (7-17) mg/dL Creatinine (0.52-1.04) mg/dL Glucose (74-99) mg/dL POC Glucose (mg/dL) (70-110) mg/dL Plasma Lactic Acid Varun (0.7-2.0) mmol/L Uric Acid (3.7-7.4) mg/dL Calcium (8.4-10.2) mg/dL Phosphorus (2.5-4.5) mg/dL Total Bilirubin (0.2-1.3) mg/dL Conjugated Bilirubin (0.0-0.3) mg/dL Unconjugated Bilirubin (0.0-1.1) mg/dL Delta Bilirubin (0.0-0.2) mg/dL AST (14-36) U/L ALT (4-34) U/L Alkaline Phosphatase (38-126) U/L Total Protein (6.3-8.2) g/dL Albumin (3.5-5.0) g/dL Crossmatch 12/22/23 12/22/23 12/23/23 Range/Units 21:00 21:14 00:32 WBC (3.8-10.6) k/uL RBC (3.80-5.40) m/uL Hgb (11.4-16.0) gm/dL Hct (34.0-46.0) % MCHC (31.0-37.0) g/dL RDW (11.5-15.5) % Plt Count (150-450) k/uL PT (10.0-12.5) sec INR (<1.2) APTT (22.0-30.0) sec Fibrinogen (200-500) mg/dL ABG pH (7.35-7.45) ABG pO2 299 H (83-108) mmHg ABG O2 Saturation 99.7 H (94-97) % Potassium 5.7 H (3.5-5.1) mmol/L Carbon Dioxide (22-30) mmol/L BUN (7-17) mg/dL Creatinine (0.52-1.04) mg/dL Glucose (74-99) mg/dL POC Glucose (mg/dL) 119 H (70-110) mg/dL Plasma Lactic Acid Varun (0.7-2.0) mmol/L Uric Acid (3.7-7.4) mg/dL Calcium (8.4-10.2) mg/dL Phosphorus (2.5-4.5) mg/dL Total Bilirubin (0.2-1.3) mg/dL Conjugated Bilirubin (0.0-0.3) mg/dL Unconjugated Bilirubin (0.0-1.1) mg/dL Delta Bilirubin (0.0-0.2) mg/dL AST (14-36) U/L ALT (4-34) U/L Alkaline Phosphatase (38-126) U/L Total Protein (6.3-8.2) g/dL Albumin (3.5-5.0) g/dL Crossmatch 12/23/23 12/23/23 12/23/23 Range/Units 05:20 05:20 05:20 WBC (3.8-10.6) k/uL RBC (3.80-5.40) m/uL Hgb (11.4-16.0) gm/dL Hct (34.0-46.0) % MCHC (31.0-37.0) g/dL RDW (11.5-15.5) % Plt Count (150-450) k/uL PT 23.8 H (10.0-12.5) sec INR 2.4 H (<1.2) APTT 50.8 H (22.0-30.0) sec Fibrinogen (200-500) mg/dL ABG pH (7.35-7.45) ABG pO2 (83-108) mmHg ABG O2 Saturation (94-97) % Potassium 5.8 H (3.5-5.1) mmol/L Carbon Dioxide 20 L (22-30) mmol/L BUN 93 H (7-17) mg/dL Creatinine 2.49 H (0.52-1.04) mg/dL Glucose 113 H (74-99) mg/dL POC Glucose (mg/dL) (70-110) mg/dL Plasma Lactic Acid Varun 11.5 H* (0.7-2.0) mmol/L Uric Acid 7.9 H (3.7-7.4) mg/dL Calcium 6.6 L (8.4-10.2) mg/dL Phosphorus 7.7 H (2.5-4.5) mg/dL Total Bilirubin 16.1 H* (0.2-1.3) mg/dL Conjugated Bilirubin (0.0-0.3) mg/dL Unconjugated Bilirubin (0.0-1.1) mg/dL Delta Bilirubin (0.0-0.2) mg/dL AST 677 H (14-36) U/L ALT 138 H (4-34) U/L Alkaline Phosphatase 177 H (38-126) U/L Total Protein 3.9 L (6.3-8.2) g/dL Albumin 1.8 L (3.5-5.0) g/dL Crossmatch 12/23/23 12/23/23 12/23/23 Range/Units 05:20 05:30 05:58 WBC 0.6 L* (3.8-10.6) k/uL RBC 2.81 L (3.80-5.40) m/uL Hgb 8.2 L (11.4-16.0) gm/dL Hct 25.7 L (34.0-46.0) % MCHC (31.0-37.0) g/dL RDW 23.4 H (11.5-15.5) % Plt Count 9 L* (150-450) k/uL PT (10.0-12.5) sec INR (<1.2) APTT (22.0-30.0) sec Fibrinogen (200-500) mg/dL ABG pH (7.35-7.45) ABG pO2 (83-108) mmHg ABG O2 Saturation 98.4 H (94-97) % Potassium (3.5-5.1) mmol/L Carbon Dioxide (22-30) mmol/L BUN (7-17) mg/dL Creatinine (0.52-1.04) mg/dL Glucose (74-99) mg/dL POC Glucose (mg/dL) 122 H (70-110) mg/dL Plasma Lactic Acid Varun (0.7-2.0) mmol/L Uric Acid (3.7-7.4) mg/dL Calcium (8.4-10.2) mg/dL Phosphorus (2.5-4.5) mg/dL Total Bilirubin (0.2-1.3) mg/dL Conjugated Bilirubin (0.0-0.3) mg/dL Unconjugated Bilirubin (0.0-1.1) mg/dL Delta Bilirubin (0.0-0.2) mg/dL AST (14-36) U/L ALT (4-34) U/L Alkaline Phosphatase (38-126) U/L Total Protein (6.3-8.2) g/dL Albumin (3.5-5.0) g/dL Crossmatch 12/23/23 Range/Units 08:48 WBC (3.8-10.6) k/uL RBC (3.80-5.40) m/uL Hgb (11.4-16.0) gm/dL Hct (34.0-46.0) % MCHC (31.0-37.0) g/dL RDW (11.5-15.5) % Plt Count (150-450) k/uL PT (10.0-12.5) sec INR (<1.2) APTT (22.0-30.0) sec Fibrinogen (200-500) mg/dL ABG pH (7.35-7.45) ABG pO2 (83-108) mmHg ABG O2 Saturation (94-97) % Potassium (3.5-5.1) mmol/L Carbon Dioxide (22-30) mmol/L BUN (7-17) mg/dL Creatinine (0.52-1.04) mg/dL Glucose (74-99) mg/dL POC Glucose (mg/dL) (70-110) mg/dL Plasma Lactic Acid Varun 11.9 H* (0.7-2.0) mmol/L Uric Acid (3.7-7.4) mg/dL Calcium (8.4-10.2) mg/dL Phosphorus (2.5-4.5) mg/dL Total Bilirubin (0.2-1.3) mg/dL Conjugated Bilirubin (0.0-0.3) mg/dL Unconjugated Bilirubin (0.0-1.1) mg/dL Delta Bilirubin (0.0-0.2) mg/dL AST (14-36) U/L ALT (4-34) U/L Alkaline Phosphatase (38-126) U/L Total Protein (6.3-8.2) g/dL Albumin (3.5-5.0) g/dL Crossmatch Assessment and Plan (1) Hepatic insufficiency Narrative/Plan: Patient's liver enzymes continued to worsen. It was discussed with the patient and her , that this is expected, especially as the patient is at the christin in terms of maximal chemotherapy effect. If she is able to be supported through this phase, there is possibility of improvement starting to occur after the next 2-3 days. It was discussed with the , however, that that is not obviously guaranteed, and the liver failure may be progressive and not recover. We will continue to monitor closely with ongoing aggressive supportive care and continue to update him as appropriate Current Visit: Yes Status: Acute Priority: High Code(s): K72.90 - HEPATIC FAILURE, UNSPECIFIED WITHOUT COMA SNOMED Code(s): 884008803 (2) DIC (disseminated intravascular coagulation) Narrative/Plan: Continue aggressive supportive measures. Platelet transfusions ordered for platelet count less than 10. Patient will receive another dose of vitamin K IV. Cryoprecipitate will be administered if fibrinogen level falls below 150. No definite evidence of major active bleeding. Current Visit: Yes Status: Acute Priority: High Code(s): D65 - DISSEMINATED INTRAVASCULAR COAGULATION SNOMED Code(s): 09875501 (3) Stage IV breast cancer in female Narrative/Plan: Status post cycle 1 of Taxol given in an emergent fashion for aggressive recurrent stage IV malignancy, with progressive liver insufficiency. Continue monitoring with aggressive supportive measures. Patient will be transfused to keep hemoglobin greater than 7. She was also started on G-CSF today for chemotherapy-related neutropenia. Prognosis is quite guarded, as discussed ab kilo Current Visit: Yes Status: Acute Priority: High Code(s): C50.919 - MALIGNANT NEOPLASM OF UNSP SITE OF UNSPECIFIED FEMALE BREAST SNOMED Code(s): 15773430 (4) Acute kidney injury Narrative/Plan: There is progressive worsening of creatinine. Case discussed with nephrology. Given the amount of a third spacing, related to her liver insufficiency, the differentials include hypoperfusion and/or tumor lysis. Tumor lysis labs are being monitored daily, and we will repeat rasburicase if uric acid rises to greater than 8. Defer to nephrology for further management Current Visit: Yes Status: Acute Priority: High Code(s): N17.9 - ACUTE KIDNEY FAILURE, UNSPECIFIED SNOMED Code(s): 23759990
--- NOTE | 2023-12-23 21:24 | P.PN ---
Subjective Progress Note Date: 12/23/23 This is a pleasant 43-year-old female who presented to the emergency department with increased abdominal pain, postop nausea and vomiting with decreased oral intake and dehydration. Patient recently was hospitalized underwent liver biopsy along with acute cholecystectomy with general surgery Dr. Vuong last week. Patient reports she continued to have abdominal pain and difficulty tolerating oral intake and recently started developing nausea and vomiting again. Patient reports severe abdominal pain with no improvement. Patient reports having minimal bowel movements although is passing gas and is urinating with no difficulties. Labs reviewed on admission and had a D-dimer done which was significantly elevated underwent CTA with no suggestion of PE. Other labs reveal an elevated white count of 20.8, hemoglobin stable at 14.4, platelets significantly low at 17, INR 2.0, D-dimer above 34, sodium 135, potassium 3.7, creatinine 1.01, lactic acid was 2.0, total bili is 5.9 with an AST of 229 and ALT is 78 and alk phos is 365, lipase was 34. Urinalysis was negative and influenza/COVID/RSV are all negative as well. Patient was admitted for dehydration with general surgery as well as oncology on consult. Patient did undergo a liver biopsy last admission during the cholecystectomy which remains pending. Patient having an increasing white count this morning of 26 with no fevers noted and empiric antibiotics started and will consult infectious disease and appreciate input and recommendations. EKG shows sinus rhythm, abdominal pelvis CT shows postcholecystectomy changes with high density fluid in the pelvis around the uterus posteriorly representing possible blood products with n o evidence of pneumoperitoneum or organizing peripheral enhancing fluid collection to suggest abscess, persistent liver lesions as noted on MRI from 422 concerning of metastatic disease until proven otherwise and a trace bilateral pleural effusions. Patient is on room air and denies significant shortness of breath although does feel exerted with minimal exertion. Will add incentive spirometer. 12/15/2023 Patient is seen in follow-up this morning lethargic although arousable. Patient is scheduled to undergo a PICC line as oncology is following and discussing initiating Taxol chemotherapy while inpatient. Repeat ultrasound showing post cholecystectomy changes. Per oncology, liver biopsy that was performed last week is positive for metastatic breast cancer. Patient continues to report some nausea and vomiting with decreased oral intake and continued abdominal pain. Patient is having some generalized edema noted and was given a dose of Lasix. Patient's labs consistent with DIC and is status post cryoprecipitate. Oncology following closely. White count is trending down and patient is maintained on antibiotics. Infectious diseases following. Overall prognosis remains guarded. 12/16/2023 Patient seen and evaluated in follow-up status post PICC line placement with oncology following closely with plans of initiating chemotherapy while inpatient today. Multiple medical consultations following. Patient was initiated on antibiotics and white count is trending down. Infectious disease following and will be monitored closely off antibiotic therapy. Patient will receive Taxol and will be monitored closely. Patient also to receive platelets today. Continue with current regimen with oncology following closely. Encouraged to increase activity as tolerated. Patient reports generalized weakness although is getting up and walking to the bathroom. Patient does feel somewhat short of breath with exertion. Patient continues with generalized edema noted of the lower extremities as well as upper and abdomen. Will continue to encourage elevating lower extremities while at rest and may use Mark wraps or compression stockings to assist with swelling. Diet has been advanced per surgery and boost supplements also being added as patient reports continued abdominal pain with not much of an appetite. 12/17/2023 Patient is seen in follow-up today status post chemotherapy of Taxol. Patient reports to feeling significantly tired and weak with continued abdominal pain and nausea. Patient has been using Zofran and general surgery following as patient is recent status post lap cholecystectomy. No plans for surgical intervention at this time. Patient is receiving platelets today and other labs reviewed with oncology following closely undergoing further DIC treatment and workup. Infectious disease following as well and patient is being closely monitored off antibiotic therapy. White count remains elevated. Patient is afebrile. Patient is maintained on full liquids although reports not eating much and not tolerating. Patient has significant pain when attempting to eat or drink and associated with severe nausea. Encouraged patient to increase activity as tolerated and attempt to sit up in the chair. Ensure supplements being added. Patient appears jaundice and edematous. 0 12/18/2023 Patient is evaluated today on the medical floor. Patient is status post chemotherapy of Taxol. She continues to feel significantly weak and is requiring assistance to get up to the restroom. Patient states that she could possibly sit up in the chair however states that she is too weak to walk from the chair to the restroom. Patient continues to report significant nausea and abdominal discomfort. Patient did receive a dose of cryoprecipitate for fibrinogen level and today's blood work is showing to 15 with improvement in her PTT/PTT her INR remained stable at 2.2. Patient's calcium level was low today at 6.3, uric acid and phosphorus levels are elevated. Her creatinine has increased up to 1.68 with a sodium level of 133. Patient states that she does feel dehydrated being as she has had poor oral intake and is really unable to tolerate much fluids at this time. Her white blood cell count remains elevated at 22.6. Chest x-ray reveals no acute process. 12/19/2023 Patient evaluated in follow up today. Continues to report abdominal discomfort right upper quadrant and also lower back pain. Patient has become increasingly weak and having difficulty with ambulation requiring multiple staff members to help her up to the restroom. Patient has been increasingly restless throughout the day and states she is unable to get comfortable in the bed. She is also anxious. Wanting the IV fluids turned down as she reports feeling puffy and fluid overloaded. Concern for tumor lysis syndrome and received a dose of rasburicase yesterday. Nephrology was consulted. Her creatinine continues to worsen today BUN is 70.9 and creatinine 2.0. Patient was found to have significant urinary retention with over 2L in the urinary bladder and an indwelling catheter has been placed. LFTs remain elevated. Sodium improved to 135, potassium 5.3 today. 12/20/2023 Patient is evaluated today in follow up on the medical floor. Was having increasing lower back pain, and discomfort yesterday and into the evening which was not controlled by norco. Patient states the dilaudid made her loopy and morphine was then given. Patient was sedated upon evaluation this AM and was given a dose of narcan and respirations did improve. Patient reports not being able to get comfortable and has increasing peripheral edema. Fluids will be cut back and patient will be given a dose of IV lasix today. Platelet count found to be 8 and also fibrinogen is 197. Patient is scheduled to receive a unit of platelets today. Patient has received 2 units of platelets and 2 units of cryoprecipitate so far this admission. White blood cell count slightly improved to 17.25. BUN 79.7, creatinine 1.9. Total bilirubin 7.2. 12/21/2023 Patient remains significantly encephalopathic on todays examination. She has worsening jaundice. Continues to have blood in the oral cavity. did receive a do se of platelets yesterday and repeat today is 10, patient is scheduled to receive 1 unit of platelets. Chest xray today reveals hypoventilatory changes with patchy airspace disease in the lower lungs similar to slightly worsened. Patient did receive a dose of IV lasix yesterday. Brain CT reveals no acute changes. Her white blood cell count has normalized to 6.2 and remains off antibiotic therapy. ID is following along. Sodium is 133, BUN 83, creatinine 1.53, calcium 6.6, phosphorous 4.9, magnesium 2.5, total bilirubin 11.2. AST/ALT/alk phos remain elevated. Patient remains on IV solu-cortef. Patient is received fluids with bicarb gtt at 50 and normal saline at 50. Nephrology following. Indwelling catheter remains in place. Patient remains afebrile. 12/22/2023 Patient is eval today in the intensive care unit patient was transferred overnight secondary to hypotension and is now requiring vasopressor support has been started on levophed. Sepsis workup has been completed with a urine culture and blood culture ordered as well as a lactic acid. Patient continues on normal saline at 50 cc/h and has been started empirically on IV Zosyn at this time. Infectious disease is following closely. Ongoing interstitial and bilateral patchy opacities greater than left basilar may be a slight improvement in aeration of the right base. There is a possible small pleural effusion which persists as well. The acid comes back at 7.8. Her bilirubin remains elevated at 12.3. BUN of 87, creatinine of 1.78, potassium of 5.5, sodium of 136. Her INR is 2.0. Fibrinogen level is 191. There is evidence of bright red blood in between the legs, and patient also continues to be bleeding from her oral cavity. Patient will receive another dose of vitamin K today. 12/23/2023 Patient is evaluated today in the intensive care unit. Episode of SVT yesterday requiring adenosine, IV amiodarone and IV cardizem. Patient required intubation and mechanical ventilation, sedated with propofol. Requiring vasopressin and levophed. Patient received IV push lasix today additionally will receive 1 unit prbc, 1 unit platelet, 2 units cryoprecipitate. Patient has been made a DNR. Bilirubin up to 16.1. WBC 0.6, hemoglobin 8.2, platelet count of 9. INR 2.4. Urine culture and blood culture pending. Patient is on IV zosyn. Review of systems: Unable to complete patient is on the mechanical ventilator and sedated All medications have been reviewed PHYSICAL EXAMINATION: GENERAL: The patient is intubated and sedated in the ICU. Ill-appearing. Morbidly obese HEENT: Pupils are round and equally reacting to light. EOMI. No scleral icterus. No conjunctival pallor. Normocephalic, atraumatic. No pharyngeal erythema. No thyromegaly. CARDIOVASCULAR: S1 and S2 muffled PULMONARY: Chest is clear to auscultation, no wheezing or crackles. ABDOMEN: Soft, tender, nondistended, normoactive bowel sounds. No palpable organomegaly. mild RUQ tenderness. Scruggs catheter in place. MUSCULOSKELETAL: No joint swelling or deformity. EXTREMITIES: No cyanosis, clubbing, or pedal edema. Bilateral upper and lower extremities edematous NEUROLOGICAL: Gross neurological examination did not reveal any focal deficits. Diffusely weak SKIN: No rashes. Jaundice Assessment: Altered mental status with concern for acute metabolic and hepatic encephalopathy. Brain CT showing no acute process. Patient has worsening m entation, obtunded/lethargic requiring mechanical ventilation. Hypotension with concerns for sepsis patient also has significant lactic acidosis. Sepsis work up in progress and patient has been started on IV zosyn empirically. ID following. Hypotension requiring vasopression and levophed SVT treated with adenosine and IV amiodarone, IV cardizem Acute hypoxemic respiratory failure requiring mechanical ventilation. Nausea, vomiting, decreased oral intake with dehydration and continued abdominal pain, multifactorial, most likely secondary to metastatic disease Acute kidney injury with concern for tumor lysis syndrome /possible hepatorenal Hyperkalemia secondary to the acute kidney injury Hypovolemic hyponatremia due to dehydration DIC with coagulopathy, secondary to liver lesions oncology following. Thrombocytopenia tranfuse for counts less than 10 Patient receiving platelets and cryoprecipitate. Elevated uric acid patient received a dose of rasburicase as recommended by oncology Urinary retention require indwelling scruggs catheter Status post laparoscopic cholecystectomy 12/08 Significant leukocytosis, multifactorial, likely reactive, trending down and was monitored off antibiotics. Patient is now leukopenic. 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 Patient received a PICC line and was given Taxol chemotherapy. Patient has significant pancytopenia has received total 6 units of platelets, 2 units of cryopreciptate. Undergoing DIC monitoring, labs are consistent with DIC and is status post cryoprecipitate. Repeat labs ordered every 12 hours Clinically patient has declined and requiring mechanical intubation and remains on the mechanical ventilator. Family has made patient a DNR. Nephrology discussin renal replacement therapy. Overall prognosis is extremely guarded at this time. Condition is critical. The impression and plan of care has been dictated by Kimberly Lehman Nurse Practitioner as directed. Dr. Leeanne MD I have performed a history and physical examination and medical decision making of this patient, discussed the same with the dictator, and agree with the dictators assessment and plan as written, documented as a scribe. Based on total visit time, I have performed more than 50% of this visit. Objective - Vital Signs Vital signs: Vital Signs Temp 97.6 F 12/23/23 12:00 Pulse 84 12/23/23 13:00 Resp 17 12/23/23 13:00 BP 89/43 12/23/23 13:00 Pulse Ox 97 12/23/23 13:00 FiO2 50 12/23/23 12:00 Intake & Output 12/23/23 12/23/23 12/24/23 06:59 18:59 06:59 Intake Total 9579.354 0179.688 Output Total 600 50 Balance 243.383 4645.688 Weight 145.1 kg 145.1 kg Intake: IV 77 321 Pressure Bag 27 21 Sodium Chloride 0.9% 1, 50 300 000 ml @ 50 mls/hr IV . Q20H [facility] Rx#:[id number] Intake, IV Titration 814.284 925.688 Amount Amiodarone 450 mg In 228.06 Dextrose 5% in Water 250 ml @ 0.5 MG/MIN 16.667 mls/hr IV .Q15H [facility] Rx#: [id number] Norepinephrine 8 mg In 735.259 500.802 Sodium Chloride 0.9% 250 ml @ 0.22 MCG/KG/MIN 61. 727 mls/hr IV .Q4H11M [facility] Rx#:[id number] Vasopressin 60 unit In 108.426 Sodium Chloride 0.9% 150 ml @ 0.03 UNITS/MIN 4.59 mls/hr IV .Q24H [facility] Rx#: [id number] propofoL 1,000 mg In 79.025 88.400 Empty Bag 1 bag @ 15 MCG/ KG/MIN 13.05 mls/hr IV . Q7H40M [facility] Rx#:[id number] Blood Product 233 Platelet Pheresis Pas 233 Psoralen Unit [id number] Output: Gastric Drainage 400 Urine 200 50 Other: Voiding Method Indwelling Catheter Indwelling Catheter ABP, PAP, CO, CI - Last Documented Arterial Blood Pressure 106/42 - Labs CBC & Chem 7: 12/23/23 05:20 12/23/23 05:20 Labs: Abnormal Lab Results - Last 24 Hours (Table) 12/22/23 12/22/23 12/22/23 Range/Units 06:39 21:00 21:14 WBC (3.8-10.6) k/uL RBC (3.80-5.40) m/uL Hgb (11.4-16.0) gm/dL Hct (34.0-46.0) % RDW (11.5-15.5) % Plt Count (150-450) k/uL PT (10.0-12.5) sec INR (<1.2) APTT (22.0-30.0) sec ABG pO2 299 H (83-108) mmHg ABG O2 Saturation 99.7 H (94-97) % Potassium 5.7 H (3.5-5.1) mmol/L Carbon Dioxide (22-30) mmol/L BUN (7-17) mg/dL Creatinine (0.52-1.04) mg/dL Glucose (74-99) mg/dL POC Glucose (mg/dL) (70-110) mg/dL Plasma Lactic Acid Varun (0.7-2.0) mmol/L Uric Acid (3.7-7.4) mg/dL Calcium (8.4-10.2) mg/dL Phosphorus (2.5-4.5) mg/dL Total Bilirubin (0.2-1.3) mg/dL AST (14-36) U/L ALT (4-34) U/L Alkaline Phosphatase (38-126) U/L Total Protein (6.3-8.2) g/dL Albumin (3.5-5.0) g/dL Crossmatch See Detail 12/23/23 12/23/23 12/23/23 Range/Units 00:32 05:20 05:20 WBC (3.8-10.6) k/uL RBC (3.80-5.40) m/uL Hgb (11.4-16.0) gm/dL Hct (34.0-46.0) % RDW (11.5-15.5) % Plt Count (150-450) k/uL PT 23.8 H (10.0-12.5) sec INR 2.4 H (<1.2) APTT 50.8 H (22.0-30.0) sec ABG pO2 (83-108) mmHg ABG O2 Saturation (94-97) % Potassium (3.5-5.1) mmol/L Carbon Dioxide (22-30) mmol/L BUN (7-17) mg/dL Creatinine (0.52-1.04) mg/dL Glucose (74-99) mg/dL POC Glucose (mg/dL) 119 H (70-110) mg/dL Plasma Lactic Acid Varun 11.5 H* (0.7-2.0) mmol/L Uric Acid (3.7-7.4) mg/dL Calcium (8.4-10.2) mg/dL Phosphorus (2.5-4.5) mg/dL Total Bilirubin (0.2-1.3) mg/dL AST (14-36) U/L ALT (4-34) U/L Alkaline Phosphatase (38-126) U/L Total Protein (6.3-8.2) g/dL Albumin (3.5-5.0) g/dL Crossmatch 12/23/23 12/23/23 12/23/23 Range/Units 05:20 05:20 05:30 WBC 0.6 L* (3.8-10.6) k/uL RBC 2.81 L (3.80-5.40) m/uL Hgb 8.2 L (11.4-16.0) gm/dL Hct 25.7 L (34.0-46.0) % RDW 23.4 H (11.5-15.5) % Plt Count 9 L* (150-450) k/uL PT (10.0-12.5) sec INR (<1.2) APTT (22.0-30.0) sec ABG pO2 (83-108) mmHg ABG O2 Saturation (94-97) % Potassium 5.8 H (3.5-5.1) mmol/L Carbon Dioxide 20 L (22-30) mmol/L BUN 93 H (7-17) mg/dL Creatinine 2.49 H (0.52-1.04) mg/dL Glucose 113 H (74-99) mg/dL POC Glucose (mg/dL) 122 H (70-110) mg/dL Plasma Lactic Acid Varun (0.7-2.0) mmol/L Uric Acid 7.9 H (3.7-7.4) mg/dL Calcium 6.6 L (8.4-10.2) mg/dL Phosphorus 7.7 H (2.5-4.5) mg/dL Total Bilirubin 16.1 H* (0.2-1.3) mg/dL AST 677 H (14-36) U/L ALT 138 H (4-34) U/L Alkaline Phosphatase 177 H (38-126) U/L Total Protein 3.9 L (6.3-8.2) g/dL Albumin 1.8 L (3.5-5.0) g/dL Crossmatch 12/23/23 12/23/23 Range/Units 05:58 08:48 WBC (3.8-10.6) k/uL RBC (3.80-5.40) m/uL Hgb (11.4-16.0) gm/dL Hct (34.0-46.0) % RDW (11.5-15.5) % Plt Count (150-450) k/uL PT (10.0-12.5) sec INR (<1.2) APTT (22.0-30.0) sec ABG pO2 (83-108) mmHg ABG O2 Saturation 98.4 H (94-97) % Potassium (3.5-5.1) mmol/L Carbon Dioxide (22-30) mmol/L BUN (7-17) mg/dL Creatinine (0.52-1.04) mg/dL Glucose (74-99) mg/dL POC Glucose (mg/dL) (70-110) mg/dL Plasma Lactic Acid Varun 11.9 H* (0.7-2.0) mmol/L Uric Acid (3.7-7.4) mg/dL Calcium (8.4-10.2) mg/dL Phosphorus (2.5-4.5) mg/dL Total Bilirubin (0.2-1.3) mg/dL AST (14-36) U/L ALT (4-34) U/L Alkaline Phosphatase (38-126) U/L Total Protein (6.3-8.2) g/dL Albumin (3.5-5.0) g/dL Crossmatch Microbiology - Last 24 Hours (Table) 12/22/23 10:51 Urine Culture - Preliminary Urine,Catheterized 12/22/23 10:25 Blood Culture - Preliminary Blood 12/22/23 10:25 Blood Culture - Preliminary Blood Assessment and Plan Time with Patient: Less than 30
--- NOTE | 2023-12-24 23:20 | P.DS ---
Providers Date of admission: 12/13/23 20:20 Attending physician: Amrita Tinoco Consults: 12/13/23 19:29 Consult Physician Routine Consulting Provider: Clover Johnson Consult Reason/Comments: history of cancer, thrombocytopenia Do you want consulting provider notified?: Yes Consult Physician Routine Consulting Provider: Shlomo Vuong Consult Reason/Comments: post op pain Do you want consulting provider notified?: Already Contacted 12/14/23 09:55 Consult Physician Urgent Consulting Provider: Cookie Deal Consult Reason/Comments: post op fever, recent gallbladder removal, elev wbc, mets Do you want consulting provider notified?: Yes 12/18/23 12:27 Consult Physician Stat Consulting Provider: Mauro Scales Consult Reason/Comments: possible tumor lysis Do you want consulting provider notified?: Yes 12/22/23 05:48 Consult Physician Stat Consulting Provider: Lashanda Brady Consult Reason/Comments: Hypotension, ICU management Do you want consulting provider notified?: Already Contacted 12/22/23 19:03 Consult Physician Stat Consulting Provider: Parth Jung Consult Reason/Comments: SVT Do you want consulting provider notified?: Already Contacted 12/23/23 11:10 Consult Physician Routine Consulting Provider: Melvin Rodriguez Consult Reason/Comments: temporary dialysis cath Do you want consulting provider notified?: Yes Primary care physician: [facility] Course: Final Diagnosis Altered mental status with concern for acute metabolic and hepatic encephalopathy. Brain CT showing no acute process. Patient has worsening mentation, obtunded/lethargic requiring mechanical ventilation. Hypotension with concerns for sepsis patient also has significant lactic acidosis. Sepsis work up in progress and patient has been started on IV zosyn empirically. ID following. Hypotension requiring vasopression and levophed SVT treated with adenosine and IV amiodarone, IV cardizem Acute hypoxemic respiratory failure requiring mechanical ventilation. Nausea, vomiting, decreased oral intake with dehydration and continued abdominal pain, multifactorial, most likely secondary to metastatic disease Acute kidney injury with concern for tumor lysis syndrome /possible hepatorenal Hyperkalemia secondary to the acute kidney injury Hypovolemic hyponatremia due to dehydration DIC with coagulopathy, secondary to liver lesions oncology following. Thrombocytopenia tranfuse for counts less than 10 Patient receiving platelets and cryoprecipitate. Elevated uric acid patient received a dose of rasburicase as recommended by oncology Urinary retention require indwelling scruggs catheter Status post laparoscopic cholecystectomy 12/08 Significant leukocytosis, multifactorial, likely reactive, trending down and was monitored off antibiotics. Patient is now leukopenic. 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 Hospital Course This is a pleasant 43-year-old female who presented to the emergency department with increased abdominal pain, postop nausea and vomiting with decreased oral intake and dehydration. Patient recently was hospitalized underwent liver biopsy along with acute cholecystectomy with general surgery Dr. Vuong last week. Patient reports she continued to have abdominal pain and difficulty tolerating oral intake and recently started developing nausea and vomiting again . Patient reports severe abdominal pain with no improvement. Patient reports having minimal bowel movements although is passing gas and is urinating with no difficulties. Labs reviewed on admission and had a D-dimer done which was significantly elevated underwent CTA with no suggestion of PE. Other labs reveal an elevated white count of 20.8, hemoglobin stable at 14.4, platelets significantly low at 17, INR 2.0, D-dimer above 34, sodium 135, potassium 3.7, creatinine 1.01, lactic acid was 2.0, total bili is 5.9 with an AST of 229 and ALT is 78 and alk phos is 365, lipase was 34. Urinalysis was negative and influenza/COVID/RSV are all negative as well. Patient was admitted for dehydration with general surgery as well as oncology on consult. Patient did undergo a liver biopsy last admission during the cholecystectomy which remains pending. Patient having an increasing white count this morning of 26 with no fevers noted and empiric antibiotics started and will consult infectious disease and appreciate input and recommendations. EKG shows sinus rhythm, abdominal pelvis CT shows postcholecystectomy changes with high density fluid in the pelvis around the uterus posteriorly representing possible blood products with no evidence of pneumoperitoneum or organizing peripheral enhancing fluid collection to suggest abscess, persistent liver lesions as noted on MRI from 422 concerning of metastatic disease until proven otherwise and a trace bilateral pleural effusions. Patient is on room air and denies significant shortness of breath although does feel exerted with minimal exertion. Will add incentive spirometer. 12/15/2023 Patient is seen in follow-up this morning lethargic although arousable. Patient is scheduled to undergo a PICC line as oncology is following and discussing initiating Taxol chemotherapy while inpatient. Repeat ultrasound showing post cholecystectomy changes. Per oncology, liver biopsy that was performed last week is positive for metastatic breast cancer. Patient continues to report some nausea and vomiting with decreased oral intake and continued abdominal pain. Patient is having some generalized edema noted and was given a dose of Lasix. P atient's labs consistent with DIC and is status post cryoprecipitate. Oncology following closely. White count is trending down and patient is maintained on antibiotics. Infectious diseases following. Overall prognosis remains guarded. 12/16/2023 Patient seen and evaluated in follow-up status post PICC line placement with oncology following closely with plans of initiating chemotherapy while inpatient today. Multiple medical consultations following. Patient was initiated on antibiotics and white count is trending down. Infectious disease following and will be monitored closely off antibiotic therapy. Patient will receive Taxol and will be monitored closely. Patient also to receive platelets today. Continue with current regimen with oncology following closely. Encouraged to increase activity as tolerated. Patient reports generalized weakness although is getting up and walking to the bathroom. Patient does feel somewhat short of breath with exertion. Patient continues with generalized edema noted of the lower extremities as well as upper and abdomen. Will continue to encourage elevating lower extremities while at rest and may use Mark wraps or compression stockings to assist with swelling. Diet has been advanced per surgery and boost supplements also being added as patient reports continued abdominal pain with not much of an appetite. 12/17/2023 Patient is seen in follow-up today status post chemotherapy of Taxol. Patient reports to feeling significantly tired and weak with continued abdominal pain and nausea. Patient has been using Zofran and general surgery following as patient is recent status post lap cholecystectomy. No plans for surgical intervention at this time. Patient is receiving platelets today and other labs reviewed with oncology following closely undergoing further DIC treatment and workup. Infectious disease following as well and patient is being closely monitored off antibiotic therapy. White count remains elevated. Patient is afebrile. Patient is maintained on full liquids although reports not eating much and not tolerating. Patient has significant pain when attempting to eat or drink and associated with severe nausea. Encouraged patient to increase activity as tolerated and attempt to sit up in the chair. Ensure supplements being added. Patient appears jaundice and edematous. 0 12/18/2023 Patient is evaluated today on the medical floor. Patient is status post chemotherapy of Taxol. She continues to feel significantly weak and is requiring assistance to get up to the restroom. Patient states that she could possibly sit up in the chair however states that she is too weak to walk from the chair to the restroom. Patient continues to report significant nausea and abdominal discomfort. Patient did receive a dose of cryoprecipitate for fibrinogen level and today's blood work is showing to 15 with improvement in her PTT/PTT her INR remained stable at 2.2. Patient's calcium level was low today at 6.3, uric acid and phosphorus levels are elevated. Her creatinine has increased up to 1.68 with a sodium level of 133. Patient states that she does feel dehydrated being as she has had poor oral intake and is really unable to tolerate much fluids at this time. Her white blood cell count remains elevated at 22.6. Chest x-ray reveals no acute process. 12/19/2023 Patient evaluated in follow up today. Continues to report abdominal discomfort right upper quadrant and also lower back pain. Patient has become increasingly weak and having difficulty with ambulation requiring multiple staff members to help her up to the restroom. Patient has been increasingly restless throughout the day and states she is unable to get comfortable in the bed. She is also anxious. Wanting the IV fluids turned down as she reports feeling puffy and fluid overloaded. Concern for tumor lysis syndrome and received a dose of rasburicase yesterday. Nephrology was consulted. Her creatinine continues to worsen today BUN is 70.9 and creatinine 2.0. Patient was found to have significant urinary retention with over 2L in the urinary bladder and an indwelling catheter has been placed. LFTs remain elevated. Sodium improved to 13 5, potassium 5.3 today. 12/20/2023 Patient is evaluated today in follow up on the medical floor. Was having increasing lower back pain, and discomfort yesterday and into the evening which was not controlled by norco. Patient states the dilaudid made her loopy and morphine was then given. Patient was sedated upon evaluation this AM and was given a dose of narcan and respirations did improve. Patient reports not being able to get comfortable and has increasing peripheral edema. Fluids will be cut back and patient will be given a dose of IV lasix today. Platelet count found to be 8 and also fibrinogen is 197. Patient is scheduled to receive a unit of platelets today. Patient has received 2 units of platelets and 2 units of cryoprecipitate so far this admission. White blood cell count slightly improved to 17.25. BUN 79.7, creatinine 1.9. Total bilirubin 7.2. 12/21/2023 Patient remains significantly encephalopathic on todays examination. She has worsening jaundice. Continues to have blood in the oral cavity. did receive a dose of platelets yesterday and repeat today is 10, patient is scheduled to receive 1 unit of platelets. Chest xray today reveals hypoventilatory changes with patchy airspace disease in the lower lungs similar to slightly worsened. Patient did receive a dose of IV lasix yesterday. Brain CT reveals no acute changes. Her white blood cell count has normalized to 6.2 and remains off antibiotic therapy. ID is following along. Sodium is 133, BUN 83, creatinine 1.53, calcium 6.6, phosphorous 4.9, magnesium 2.5, total bilirubin 11.2. AST/ALT/alk phos remain elevated. Patient remains on IV solu-cortef. Patient is received fluids with bicarb gtt at 50 and normal saline at 50. Nephrology following. Indwelling catheter remains in place. Patient remains afebrile. 12/22/2023 Patient is eval today in the intensive care unit patient was transferred overnight secondary to hypotension and is now requiring vasopressor support has been started on levophed. Sepsis workup has been completed with a urine culture and blood culture ordered as well as a lactic acid. Patient continues on normal saline at 50 cc/h and has been started empirically on IV Zosyn at this time. Infectious disease is following closely. Ongoing interstitial and bilateral patchy opacities greater than left basilar may be a slight improvement in aeration of the right base. There is a possible small pleural effusion which persists as well. The acid comes back at 7.8. Her bilirubin remains elevated at 12.3. BUN of 87, creatinine of 1.78, potassium of 5.5, sodium of 136. Her INR is 2.0. Fibrinogen level is 191. There is evidence of bright red blood in between the legs, and patient also continues to be bleeding from her oral cavity. Patient will receive another dose of vitamin K today. 12/23/2023 Patient is evaluated today in the intensive care unit. Episode of SVT yesterday requiring adenosine, IV amiodarone and IV cardizem. Patient required intubation and mechanical ventilation, sedated with propofol. Requiring vasopressin and levophed. Patient received IV push lasix today additionally will receive 1 unit prbc, 1 unit platelet, 2 units cryoprecipitate. Patient has been made a DNR. Bilirubin up to 16.1. WBC 0.6, hemoglobin 8.2, platelet count of 9. INR 2.4. Urine culture and blood culture pending. Patient is on IV zosyn. Plan: Patient was admitted with continued abdominal pain with nausea and vomiting with general surgery following as patient is recent laparoscopic cholecystectomy on 12/09/2023. 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 Patient received a PICC line and was given Taxol chemotherapy. Patient has significant pancytopenia has received total 6 units of platelets, 2 units of cryopreciptate. Undergoing DIC monitoring, labs are consistent with DIC and is status post cryoprecipitate. Repeat labs ordered every 12 hours Clinically patient has declined and requiring mechanical intubation and remains on the mechanical ventilator. Family has made patient a DNR. Nephrology discussin renal replacement therapy. Overall prognosis is extremely guarded at this time. Condition is critical. Patient was made comfort care. The impression and plan of care has been dictated by Kimberly Lehman Nurse Practitioner as directed. Dr. Leeanne MD I have performed a history and physical examination and medical decision making of this patient, discussed the same with the dictator, and agree with the dictators assessment and plan as written, documented as a scribe. Based on total visit time, I have performed more than 50% of this visit. Plan - Discharge Summary Discharge Rx Participant: No New Discharge Prescriptions: No Action cefUROXime axetiL [Ceftin] 500 mg PO BID 7 Days #14 tab metroNIDAZOLE [Flagyl] 500 mg PO TID 7 Days #21 tab Ergocalciferol [Vitamin D2 (1250 Mcg = 83302 Iu)] 1,250 mcg PO QMONTHLY Hydrocortisone [Cortef] 20 mg PO DAILY@1300 Hydrocortisone [Cortef] 10 mg PO DAILY@1800 Discharge Medication List Ergocalciferol [Vitamin D2 (1250 Mcg = 19411 Iu)] 1,250 mcg PO QMONTHLY 10/15/22 [History] Hydrocortisone [Cortef] 10 mg PO DAILY@1800 12/06/23 [History] Hydrocortisone [Cortef] 20 mg PO DAILY@1300 12/06/23 [History] cefUROXime axetiL [Ceftin] 500 mg PO BID 7 Days #14 tab 12/11/23 [Rx] metroNIDAZOLE [Flagyl] 500 mg PO TID 7 Days #21 tab 12/11/23 [Rx] Follow up Appointment(s)/Referral(s): Mary Ellen Guzman [Primary Care Provider] - 1-2 days Discharge Disposition: - Preliminary Cause of Preliminary Cause of : metastatic breast cancer
--- NOTE | 2023-12-25 01:09 | P.PN ---
Subjective Progress Note Date: 12/23/23 Patient seen in ICU at todays visit. She is intubated and remains on pressors. Her condition remains critical. Unfortunately, kidney and liver function has continued to decline. Patients poor prognosis was discussed with and family at bedside. Additional unit of platelets and dose of vitamin K ordered. No major active bleeding noted Objective - Vital Signs Vital signs: Vital Signs Temp 97.6 F 12/23/23 12:00 Pulse 84 12/23/23 13:00 Resp 17 12/23/23 13:00 BP 89/43 12/23/23 13:00 Pulse Ox 97 12/23/23 13:00 FiO2 50 12/23/23 12:00 Intake & Output 12/22/23 12/23/23 12/23/23 18:59 06:59 18:59 Intake Total 6854.938 9850.284 959.232 Output Total 140 600 50 Balance 1556.249 524.284 909.232 Weight 145 kg 145.1 kg 145.1 kg Intake: IV 700 77 321 Piperacillin-Tazobactam 3 200 .375 gm In Sodium Chloride 0.9% 100 ml @ 25 mls/hr IVPB Q8HR [facility] Rx# :[id number] Pressure Bag 27 21 Sodium Chloride 0.9% 1, 500 50 300 000 ml @ 50 mls/hr IV . Q20H [facility] Rx#:[id number] Intake, IV Titration 719.249 814.284 638.232 Amount Norepinephrine 4 mg In 719.249 Sodium Chloride 0.9% 250 ml @ 0.03 MCG/KG/MIN 16. 299 mls/hr IV .P23H38L [facility] Rx#:[id number] Norepinephrine 8 mg In 735.259 481.150 Sodium Chloride 0.9% 250 ml @ 0.22 MCG/KG/MIN 61. 727 mls/hr IV .Q4H11M [facility] Rx#:[id number] Vasopressin 60 unit In 71.604 Sodium Chloride 0.9% 150 ml @ 0.03 UNITS/MIN 4.59 mls/hr IV .Q24H [facility] Rx#: [id number] propofoL 1,000 mg In 79.025 85.478 Empty Bag 1 bag @ 15 MCG/ KG/MIN 13.05 mls/hr IV . Q7H40M [facility] Rx#:[id number] Blood Product 277 233 Platelet Pheresis Pas 277 Psoralen Unit [id number] Platelet Pheresis Pas 233 Psoralen Unit [id number] Output: Gastric Drainage 400 Urine 140 200 50 Other: Voiding Method Indwelling Catheter Indwelling Catheter Indwelling Catheter ABP, PAP, CO, CI - Last Documented Arterial Blood Pressure 106/42 - Constitutional General appearance: Present: no acute distress - Respiratory Details: ventilated breath sounds - Gastrointestinal General gastrointestinal: Present: distended - Integumentary Integumentary: Present: jaundiced - Labs CBC & Chem 7: 12/23/23 05:20 12/23/23 05:20 Labs: Abnormal Lab Results - Last 24 Hours (Table) 12/22/23 12/22/23 12/22/23 Range/Units 06:39 16:40 16:40 WBC (3.8-10.6) k/uL RBC (3.80-5.40) m/uL Hgb (11.4-16.0) gm/dL Hct (34.0-46.0) % MCHC (31.0-37.0) g/dL RDW (11.5-15.5) % Plt Count (150-450) k/uL PT (10.0-12.5) sec INR (<1.2) APTT (22.0-30.0) sec Fibrinogen (200-500) mg/dL ABG pH (7.35-7.45) ABG pO2 (83-108) mmHg ABG O2 Saturation (94-97) % Potassium 5.7 H (3.5-5.1) mmol/L Carbon Dioxide 21 L (22-30) mmol/L BUN 89 H (7-17) mg/dL Creatinine 2.19 H (0.52-1.04) mg/dL Glucose 65 L (74-99) mg/dL POC Glucose (mg/dL) (70-110) mg/dL Plasma Lactic Acid Varun 9.7 H* (0.7-2.0) mmol/L Uric Acid (3.7-7.4) mg/dL Calcium 6.3 L* (8.4-10.2) mg/dL Phosphorus (2.5-4.5) mg/dL Total Bilirubin (0.2-1.3) mg/dL Conjugated Bilirubin (0.0-0.3) mg/dL Unconjugated Bilirubin (0.0-1.1) mg/dL Delta Bilirubin (0.0-0.2) mg/dL AST (14-36) U/L ALT (4-34) U/L Alkaline Phosphatase (38-126) U/L Total Protein (6.3-8.2) g/dL Albumin (3.5-5.0) g/dL Crossmatch See Detail 12/22/23 12/22/23 12/22/23 Range/Units 17:31 18:01 18:32 WBC (3.8-10.6) k/uL RBC (3.80-5.40) m/uL Hgb (11.4-16.0) gm/dL Hct (34.0-46.0) % MCHC (31.0-37.0) g/dL RDW (11.5-15.5) % Plt Count (150-450) k/uL PT (10.0-12.5) sec INR (<1.2) APTT (22.0-30.0) sec Fibrinogen (200-500) mg/dL ABG pH (7.35-7.45) ABG pO2 (83-108) mmHg ABG O2 Saturation (94-97) % Potassium (3.5-5.1) mmol/L Carbon Dioxide (22-30) mmol/L BUN (7-17) mg/dL Creatinine (0.52-1.04) mg/dL Glucose (74-99) mg/dL POC Glucose (mg/dL) 69 L 131 H (70-110) mg/dL Plasma Lactic Acid Varun (0.7-2.0) mmol/L Uric Acid (3.7-7.4) mg/dL Calcium (8.4-10.2) mg/dL Phosphorus 7.0 H (2.5-4.5) mg/dL Total Bilirubin 11.6 H (0.2-1.3) mg/dL Conjugated Bilirubin 7.6 H (0.0-0.3) mg/dL Unconjugated Bilirubin 2.4 H (0.0-1.1) mg/dL Delta Bilirubin 1.6 H (0.0-0.2) mg/dL AST 428 H (14-36) U/L ALT 80 H (4-34) U/L Alkaline Phosphatase 161 H (38-126) U/L Total Protein 3.7 L (6.3-8.2) g/dL Albumin 1.6 L (3.5-5.0) g/dL Crossmatch 12/22/23 12/22/23 12/22/23 Range/Units 18:32 18:32 19:11 WBC 0.5 L* (3.8-10.6) k/uL RBC 2.46 L (3.80-5.40) m/uL Hgb 7.3 L D (11.4-16.0) gm/dL Hct 23.7 L (34.0-46.0) % MCHC 30.8 L (31.0-37.0) g/dL RDW 22.4 H (11.5-15.5) % Plt Count 11 L* D (150-450) k/uL PT 24.6 H (10.0-12.5) sec INR 2.5 H (<1.2) APTT 62.7 H (22.0-30.0) sec Fibrinogen 137 L (200-500) mg/dL ABG pH 7.34 L (7.35-7.45) ABG pO2 75 L (83-108) mmHg ABG O2 Saturation (94-97) % Potassium (3.5-5.1) mmol/L Carbon Dioxide (22-30) mmol/L BUN (7-17) mg/dL Creatinine (0.52-1.04) mg/dL Glucose (74-99) mg/dL POC Glucose (mg/dL) (70-110) mg/dL Plasma Lactic Acid Varun (0.7-2.0) mmol/L Uric Acid (3.7-7.4) mg/dL Calcium (8.4-10.2) mg/dL Phosphorus (2.5-4.5) mg/dL Total Bilirubin (0.2-1.3) mg/dL Conjugated Bilirubin (0.0-0.3) mg/dL Unconjugated Bilirubin (0.0-1.1) mg/dL Delta Bilirubin (0.0-0.2) mg/dL AST (14-36) U/L ALT (4-34) U/L Alkaline Phosphatase (38-126) U/L Total Protein (6.3-8.2) g/dL Albumin (3.5-5.0) g/dL Crossmatch 12/22/23 12/22/23 12/23/23 Range/Units 21:00 21:14 00:32 WBC (3.8-10.6) k/uL RBC (3.80-5.40) m/uL Hgb (11.4-16.0) gm/dL Hct (34.0-46.0) % MCHC (31.0-37.0) g/dL RDW (11.5-15.5) % Plt Count (150-450) k/uL PT (10.0-12.5) sec INR (<1.2) APTT (22.0-30.0) sec Fibrinogen (200-500) mg/dL ABG pH (7.35-7.45) ABG pO2 299 H (83-108) mmHg ABG O2 Saturation 99.7 H (94-97) % Potassium 5.7 H (3.5-5.1) mmol/L Carbon Dioxide (22-30) mmol/L BUN (7-17) mg/dL Creatinine (0.52-1.04) mg/dL Glucose (74-99) mg/dL POC Glucose (mg/dL) 119 H (70-110) mg/dL Plasma Lactic Acid Varun (0.7-2.0) mmol/L Uric Acid (3.7-7.4) mg/dL Calcium (8.4-10.2) mg/dL Phosphorus (2.5-4.5) mg/dL Total Bilirubin (0.2-1.3) mg/dL Conjugated Bilirubin (0.0-0.3) mg/dL Unconjugated Bilirubin (0.0-1.1) mg/dL Delta Bilirubin (0.0-0.2) mg/dL AST (14-36) U/L ALT (4-34) U/L Alkaline Phosphatase (38-126) U/L Total Protein (6.3-8.2) g/dL Albumin (3.5-5.0) g/dL Crossmatch 12/23/23 12/23/23 12/23/23 Range/Units 05:20 05:20 05:20 WBC (3.8-10.6) k/uL RBC (3.80-5.40) m/uL Hgb (11.4-16.0) gm/dL Hct (34.0-46.0) % MCHC (31.0-37.0) g/dL RDW (11.5-15.5) % Plt Count (150-450) k/uL PT 23.8 H (10.0-12.5) sec INR 2.4 H (<1.2) APTT 50.8 H (22.0-30.0) sec Fibrinogen (200-500) mg/dL ABG pH (7.35-7.45) ABG pO2 (83-108) mmHg ABG O2 Saturation (94-97) % Potassium 5.8 H (3.5-5.1) mmol/L Carbon Dioxide 20 L (22-30) mmol/L BUN 93 H (7-17) mg/dL Creatinine 2.49 H (0.52-1.04) mg/dL Glucose 113 H (74-99) mg/dL POC Glucose (mg/dL) (70-110) mg/dL Plasma Lactic Acid Varun 11.5 H* (0.7-2.0) mmol/L Uric Acid 7.9 H (3.7-7.4) mg/dL Calcium 6.6 L (8.4-10.2) mg/dL Phosphorus 7.7 H (2.5-4.5) mg/dL Total Bilirubin 16.1 H* (0.2-1.3) mg/dL Conjugated Bilirubin (0.0-0.3) mg/dL Unconjugated Bilirubin (0.0-1.1) mg/dL Delta Bilirubin (0.0-0.2) mg/dL AST 677 H (14-36) U/L ALT 138 H (4-34) U/L Alkaline Phosphatase 177 H (38-126) U/L Total Protein 3.9 L (6.3-8.2) g/dL Albumin 1.8 L (3.5-5.0) g/dL Crossmatch 12/23/23 12/23/23 12/23/23 Range/Units 05:20 05:30 05:58 WBC 0.6 L* (3.8-10.6) k/uL RBC 2.81 L (3.80-5.40) m/uL Hgb 8.2 L (11.4-16.0) gm/dL Hct 25.7 L (34.0-46.0) % MCHC (31.0-37.0) g/dL RDW 23.4 H (11.5-15.5) % Plt Count 9 L* (150-450) k/uL PT (10.0-12.5) sec INR (<1.2) APTT (22.0-30.0) sec Fibrinogen (200-500) mg/dL ABG pH (7.35-7.45) ABG pO2 (83-108) mmHg ABG O2 Saturation 98.4 H (94-97) % Potassium (3.5-5.1) mmol/L Carbon Dioxide (22-30) mmol/L BUN (7-17) mg/dL Creatinine (0.52-1.04) mg/dL Glucose (74-99) mg/dL POC Glucose (mg/dL) 122 H (70-110) mg/dL Plasma Lactic Acid Varun (0.7-2.0) mmol/L Uric Acid (3.7-7.4) mg/dL Calcium (8.4-10.2) mg/dL Phosphorus (2.5-4.5) mg/dL Total Bilirubin (0.2-1.3) mg/dL Conjugated Bilirubin (0.0-0.3) mg/dL Unconjugated Bilirubin (0.0-1.1) mg/dL Delta Bilirubin (0.0-0.2) mg/dL AST (14-36) U/L ALT (4-34) U/L Alkaline Phosphatase (38-126) U/L Total Protein (6.3-8.2) g/dL Albumin (3.5-5.0) g/dL Crossmatch 12/23/23 Range/Units 08:48 WBC (3.8-10.6) k/uL RBC (3.80-5.40) m/uL Hgb (11.4-16.0) gm/dL Hct (34.0-46.0) % MCHC (31.0-37.0) g/dL RDW (11.5-15.5) % Plt Count (150-450) k/uL PT (10.0-12.5) sec INR (<1.2) APTT (22.0-30.0) sec Fibrinogen (200-500) mg/dL ABG pH (7.35-7.45) ABG pO2 (83-108) mmHg ABG O2 Saturation (94-97) % Potassium (3.5-5.1) mmol/L Carbon Dioxide (22-30) mmol/L BUN (7-17) mg/dL Creatinine (0.52-1.04) mg/dL Glucose (74-99) mg/dL POC Glucose (mg/dL) (70-110) mg/dL Plasma Lactic Acid Varun 11.9 H* (0.7-2.0) mmol/L Uric Acid (3.7-7.4) mg/dL Calcium (8.4-10.2) mg/dL Phosphorus (2.5-4.5) mg/dL Total Bilirubin (0.2-1.3) mg/dL Conjugated Bilirubin (0.0-0.3) mg/dL Unconjugated Bilirubin (0.0-1.1) mg/dL Delta Bilirubin (0.0-0.2) mg/dL AST (14-36) U/L ALT (4-34) U/L Alkaline Phosphatase (38-126) U/L Total Protein (6.3-8.2) g/dL Albumin (3.5-5.0) g/dL Crossmatch Assessment and Plan (1) DIC (disseminated intravascular coagulation) Status: Acute Priority: High Code(s): D65 - DISSEMINATED INTRAVASCULAR COAGULATION SNOMED Code(s): 09463115 (2) Nausea and vomiting Status: Acute Priority: Medium Code(s): R11.2 - NAUSEA WITH VOMITING, UNSPECIFIED SNOMED Code(s): 79419738 (3) Thrombocytopenia Status: Acute Priority: High Code(s): D69.6 - THROMBOCYTOPENIA, UNSPECIFIED SNOMED Code(s): 993703397 (4) Acute kidney injury Status: Acute Priority: High Code(s): N17.9 - ACUTE KIDNEY FAILURE, UNSPECIFIED SNOMED Code(s): 53511689 (5) Stage IV breast cancer in female Status: Acute Priority: High Code(s): C50.919 - MALIGNANT NEOPLASM OF UNSP SITE OF UNSPECIFIED FEMALE BREAST SNOMED Code(s): 55183673 (6) Hepatic insufficiency Status: Acute Priority: High Code(s): K72.90 - HEPATIC FAILURE, UNSPECIFIED WITHOUT COMA SNOMED Code(s): 374807717 Plan: Hepatic insufficiency: Patient's liver enzymes and bilirubin continued to worsen. It was discussed with the patient and her , that this is expected, especially as the patient is at the christin in terms of maximal chemotherapy effect. If she is able to be supported through this phase, there is possibility of improvement starting to occur after the next couple days. It was discussed with the , however, that that is not obviously guaranteed, and the liver failure may be progressive and not recover, and unfortunately 1 week s/p chemo there has been continued decline, and her poor prognosis was discussed. We will continue to monitor closely with ongoing aggressive supportive care and continue to update him as appropriate DIC: Continue aggressive supportive measures. Platelet transfusions ordered for platelet count less than 10. Patient will receive another dose of vitamin K IV and platelets. Cryoprecipitate will be administered if fibrinogen level falls below 150. No definite evidence of major active bleeding. Metastatic breast cancer: Status post cycle 1 of Taxol given in an emergent fashion for aggressive recurrent stage IV malignancy, with progressive liver insufficiency. Continue monitoring with aggressive supportive measures. Patient will be transfused to keep hemoglobin greater than 7. G-CSF was started for chemotherapy-related neutropenia. Prognosis is quite guarded, as discussed above MARIANO: There is progressive worsening of creatinine. Case discussed with nephrology. Given the amount of a third spacing, related to her liver insufficiency, the differentials include hypoperfusion and/or tumor lysis. Tumor lysis labs are being monitored daily, and we will repeat rasburicase if uric acid rises to greater than 8. Defer to nephrology for further management
== END 2023-12-23 20:00 | disposition expired | DRG 813 ==
LOC: EC 14:03 → 5NMEDONC 20:20 → 4SSUR 23:22 → 5NMEDONC 12-15 16:09 → 2SICU 12-22 04:02
PROVIDERS: ADMIT Hospitalist; ATTEND Hospitalist
PROC: 30243M1 Transfusion of Nonautologous Plasma Cryoprecipitate into Central Vein, Percutaneous Approach (ICD-10-PCS; 2023-12-13)
PROC: B5181ZA Fluoroscopy of Superior Vena Cava using Low Osmolar Contrast, Guidance (ICD-10-PCS; 2023-12-15)
PROC: B548ZZA Ultrasonography of Superior Vena Cava, Guidance (ICD-10-PCS; 2023-12-15)
PROC: 05HC33Z Insertion of Infusion Device into Left Basilic Vein, Percutaneous Approach (ICD-10-PCS; 2023-12-15)
PROC: 02HV33Z Insertion of Infusion Device into Superior Vena Cava, Percutaneous Approach (ICD-10-PCS; 2023-12-15)
PROC: 3E04305 Introduction of Other Antineoplastic into Central Vein, Percutaneous Approach (ICD-10-PCS; 2023-12-16)
PROC: 30243R1 Transfusion of Nonautologous Platelets into Central Vein, Percutaneous Approach (ICD-10-PCS; 2023-12-17)
PROC: 0BH17EZ Insertion of Endotracheal Airway into Trachea, Via Natural or Artificial Opening (ICD-10-PCS; principal; 2023-12-22)
PROC: 5A1935Z Respiratory Ventilation, Less than 24 Consecutive Hours (ICD-10-PCS; principal; 2023-12-22)
PROC: 3E043XZ Introduction of Vasopressor into Central Vein, Percutaneous Approach (ICD-10-PCS; 2023-12-22)
PROC: 02H633Z Insertion of Infusion Device into Right Atrium, Percutaneous Approach (ICD-10-PCS; 2023-12-22)
PROC: 03HY32Z Insertion of Monitoring Device into Upper Artery, Percutaneous Approach (ICD-10-PCS; 2023-12-22)
PROC: 4A133B1 Monitoring of Arterial Pressure, Peripheral, Percutaneous Approach (ICD-10-PCS; 2023-12-22)
PROC: 4A133J1 Monitoring of Arterial Pulse, Peripheral, Percutaneous Approach (ICD-10-PCS; 2023-12-22)
DX: D65 Disseminated intravascular coagulation [defibrination syndrome] (principal); E88.3 Tumor lysis syndrome; J96.01 Acute respiratory failure with hypoxia; N17.0 Acute kidney failure with tubular necrosis; K76.7 Hepatorenal syndrome; A41.9 Sepsis, unspecified organism; G93.41 Metabolic encephalopathy; R65.21 Severe sepsis with septic shock; E27.40 Unspecified adrenocortical insufficiency; Z68.41 Body mass index [BMI] 40.0-44.9, adult; C78.7 Secondary malignant neoplasm of liver and intrahepatic bile duct; E87.1 Hypo-osmolality and hyponatremia; C79.51 Secondary malignant neoplasm of bone; D61.818 Other pancytopenia; D62 Acute posthemorrhagic anemia; I47.10 Supraventricular tachycardia, unspecified; E87.20 Acidosis, unspecified; G89.18 Other acute postprocedural pain; C50.919 Malignant neoplasm of unspecified site of unspecified female breast; E66.01 Morbid (severe) obesity due to excess calories; K72.90 Hepatic failure, unspecified without coma; Z66 Do not resuscitate; Z51.5 Encounter for palliative care; I10 Essential (primary) hypertension; E86.0 Dehydration; E83.51 Hypocalcemia; E86.1 Hypovolemia; E87.5 Hyperkalemia; K76.82 Hepatic encephalopathy; D70.1 Agranulocytosis secondary to cancer chemotherapy; X58.XXXA Exposure to other specified factors, initial encounter; E87.70 Fluid overload, unspecified; I48.91 Unspecified atrial fibrillation; R33.9 Retention of urine, unspecified; E83.39 Other disorders of phosphorus metabolism; T45.1X5A Adverse effect of antineoplastic and immunosuppressive drugs, initial encounter; Z17.1 Estrogen receptor negative status [ER-]; Z79.2 Long term (current) use of antibiotics; Z86.2 Personal history of diseases of the blood and blood-forming organs and certain disorders involving the immune mechanism; Z85.3 Personal history of malignant neoplasm of breast; Z90.13 Acquired absence of bilateral breasts and nipples; Z90.49 Acquired absence of other specified parts of digestive tract
CPT/HCPCS: 36415; 36430; 36573; 36600; 70450; 71045; 71275; 74177; 76705; 76770; 80048; 80053; 80076; 81001; 82140; 82805; 83605; 83690; 83735; 83880; 84100; 84132; 84550; 85025; 85379; 85384; 85610; 85730; 86850; 86900; 86901; 86920; 87040; 87070; 87086; 87205; 87636; 93005; 94002; 94003; 96361; 96365; 99291